=== PATIENT | male | born 1955 | race Caucasian/White ===

== ENCOUNTER 2024-07-20 15:05 | Emergency (ER) | payer MEDICARE, OTHER, SELFPAY ==
[2024-07-20 15:06] VITALS: BP 165/104; PULSE 92; RESP 18; TEMP 36.2; O2SAT 100; BMI 30.2
--- NOTE | 2024-07-20 16:01 | EKG12_ITS ---
Test Reason : BLOOD SUGAR Blood Pressure : */* mmHG Vent. Rate : 88 BPM Atrial Rate : 88 BPM P-R Int : 146 ms QRS Dur : 96 ms QT Int : 368 ms P-R-T Axes : 53 -28 9 degrees QTcB Int : 445 ms Normal sinus rhythm Nonspecific ST abnormality Abnormal ECG Confirmed by ANDRES MAK MD ([id number]), editor newspaper NIYA MCDOWELL ([id number]) on 07/22/2024 6:11:58 AM Referred By: Confirmed By: ANDRES MAK MD
[2024-07-20] MEDS: 0.9% Normal Saline (1000mL) 1,000 ML 999 ML IV (16:29)
[2024-07-20 16:43] LABS: Bacteria 0 SEEN /hpf (None Seen); Mucous, Urine 0 SEEN /hpf (<or=2+); Red Blood Cells-Urine 0 SEEN /hpf (0-5); Squamous Epithelial Cells - UA 0 SEEN /hpf (0-5)
[2024-07-20 16:44] LABS: Absolute Lymphocyte Count 1.49 X10^3/uL (0.83-4.51); Absolute Neutrophil Count 4.5 X10^3/uL (2.0-7.7); Basophil# 0.02 X10^3/uL; Basophil% 0.3 % (0-1); Eosinophil# 0.09 X10^3/uL; Eosinophils% 1.4 % (0-5); Hematocrit 46.1 % (40-54); Hemoglobin 16.7 g/dL (13.0-16.5); Lymphocyte # 1.49 X10^3/ul (0.83-4.51); Lymphocyte % 22.5 % (19-41); Mean Corp Hgb Conc 36.2 g/dL (32-36); Mean Corpuscular Hgb 30.8 pg (27.0-32.0); Mean Corpuscular Volume 84.9 fL (80-94); Mean Platelet Vol. 9.1 fl (6.2-12.0); Monocyte# 0.45 X10^3/uL; Monocyte% 6.8 % (0-10); NRBC Flagged by Analyzer 0 % (0-5); Neutrophil # 4.54 X10^3/uL (2.7-7.7); Neutrophil % 68.7 % (47-70); Platelet Count 207 K/mm3 (150-450); RBC Distribution Width CV 12.5 % (11.6-14.6); RBC Distribution Width SD 37.6 fl (35.1-43.9); Red Blood Count 5.43 M/mm3 (4.6-6.2); White Blood Count 6.6 K/mm3 (4.4-11.0)
[2024-07-20 16:49] LABS: Color, Urine Yellow (Yellow); Glucose, Dipstick 1000 mg/dl (Normal); Ketone-Dipstick 5 mg/dl (Negative); Leukocyte Esterase-Dipstick Negative /ul (Negative); Nitrite-Dipstick Negative (Negative); Occult Blood-Urine Negative /ul (Negative); Protein-Dipstick Negative (Negative); Urine Bilirubin Dipstick Negative (Negative); Urine Clarity Clear (Clear); Urine Urobilinogen Normal (Normal)
[2024-07-20 17:01] LABS: White Blood Cells 0-5 SEEN /hpf (0-5)
[2024-07-20 17:05] VITALS: BP 155/99; PULSE 80; RESP 19; O2SAT 96
--- NOTE | 2024-07-20 17:14 | CM.ED ---
Social work Reason for referral: no PCP Referral source: case find This SW identified patient's lack of PCP and need for resources. This SW entered patient's room, introducing self and role at [facility]. Patient accepted SW visit and gave permission to speak in front of patient's , Samia, who was bedside. Patient stated feeling fine, but presenting to the ED for high blood sugar. Patient's stated patient was at the eye doctor and was having blurry vision, so patient was encouraged to come to the ED for assessment. Patient stated he was just so sweet. Patient confirmed not having a PCP and patient having one years ago who retired. Patient stated not feeling a need to get another PCP at that point due to being healthy. Patient's stated she and patient had been for 42 years and this was patient's first time in the ED since they had been . Patient and patient's accepted resources of [facility] Provider Directory and Flavia Mcclendon information. Patient and patient's denied other needs at this time. Ivette Morales, SECURITY SME, ELEVATOR ERECTOR HELPER
[2024-07-20 17:23] LABS: Anion Gap 6 (5-15); BUN 17 mg/dL (7-18); BUN/Creat Ratio 15.2 RATIO (10-20); Calcium,Total 9.5 mg/dL (8.5-10.1); Chloride 102 mmol/L (98-107); Creatinine, Serum 1.12 mg/dL (0.70-1.30); EST Glomerular Filtration Rate 69 mL/min (>60); Est Glom Filt Rate - Afr Amer 84 mL/min (>60); Estimated Creatinine Clearance 74.43 ml/min; Glucose 474 mg/dL (74-106); Potassium 3.8 mmol/L (3.5-5.1); Sodium Level 137 mmol/L (136-145)
--- NOTE | 2024-07-20 17:30 | EDS_ITS ---
HPI History of Present Illness Chief Complaint: Hyperglycemia Detail of Chief Complaint: Blood sugar greater than 500 Informant: patient and spouse/S.O. Onset/Context/Timing Onset: - (Reading done at [employer] [employer] [facility], Dr. Weaver) Context: Gradual Onset Timing: Continuous Quality: Patient with symptoms of hyperglycemia for the past several weeks Location: Endocrine Current Severity: Moderate Maximum Severity: Moderate Worsened by: New onset diabetes Relieved by: Not applicable Associated Symptoms Associated Symptoms: Bilateral blurred vision, polyuria, polydipsia, nocturia Narrative Narrative: Patient is a 69-year-old male. He has no significant past medical history. He is on no medication. He went to the doctor's office because of several weeks of bilateral blurred vision. His ocular exam was unremarkable. Blood sugar was greater than 500. He denies fever, chills night sweats. He denies cardiac respiratory symptoms. He denies GI symptoms. He denies skin lesions. He denies paresthesia, anesthesia medics upper lower extremity. He denies pain in his feet. He denies orthostatic symptoms. Does endorse thirst and dry mouth. Prior similar symptoms: No Recent Illness/Hospitalization: No [facility] Medical History Cataract Home Medications ?Medication ?Instructions ?Recorded ?Last Taken ?Type NK 07/20/24 Unknown History metformin 500 mg tablet 500 mg PO BID #60 tabs 07/20/24 Unknown Rx Allergy/AdvReac Type Severity Reaction Status Date / Time No Known Allergies Allergy Verified 07/20/24 15:06 Social History (Updated 07/20/24 @ 17:[address] Gilbert Thompson MD) household members: spouse Smoking Status: Never smoker ROS ROS ED Constitutional Constitutional ED: Denies chills, fever(s), subjective or sweats Eyes Eyes: Reports blurry vision bilateral; Denies change in vision or diplopia ENT ENT ED: Denies ear pain, rhinorrhea or sore throat Cardiovascular Cardiovascular: Denies chest pain, orthopnea or palpitations Respiratory/Chest Respiratory/Chest: Denies cough, dyspnea, dyspnea on exertion or orthopnea Gastrointestinal Gastrointestinal: Denies abdominal pain, nausea or vomiting Genitourinary Genitourinary ED: Reports urinary frequency; Denies dysuria or hematuria Musculoskeletal Musculoskeletal: Denies arthralgias, back pain or myalgias Integumentary Denies rash Neurologic Neurologic: Denies headache(s) Endocrine Endocrinology: Reports polydipsia, polyphagia and polyuria; Denies cold intolerance Hematologic/Lymphatic Hematologic/Lymphatic: Reports systems reviewed and no addt'l complaints, except as documented EXAM Physical Exam Const Vital Signs: 07/20/24 15:06 07/20/24 15:44 07/20/24 17:05 Temperature 97.2 F L Temperature Source Temporal Pulse Rate 92 80 Respiratory Rate 18 19 H Respiratory Effort Normal Non-Labored Respiratory Pattern Normal Blood Pressure 165/104 H 155/99 H Blood Pressure Mean 124 117 Pulse Ox 100 96 Oxygen Delivery Method Room Air Room Air 07/20/24 18:00 07/20/24 19:00 Temperature Temperature Source Pulse Rate 87 79 Respiratory Rate 16 12 Respiratory Effort Respiratory Pattern Blood Pressure 177/108 H 147/102 H Blood Pressure Mean 126 115 Pulse Ox 96 94 Oxygen Delivery Method Positive well nourished and well developed Constitutional Narrative: Vital signs are mycophenolate blood pressure. Patient has not seen a doctor in years. General Appearance ED: well developed; Negative for pallor HEENT Reports dry mucous membranes HEENT Narrative: Head is atraumatic no cephalic. Ears normal. Nares patent. Posterior pharynx is normal. Mouth ED: Yes dry mucous membranes Mouth: dry mucous membranes Eyes PERRL and EOMs intact bilaterally General Eye ED: Negative for pale conjunctiva or scleral icterus Neck no lymphadenopathy, supple and no JVD Resp normal respiratory effort and clear to auscultation bilaterally Cardio regular rate, regular rhythm, S1 normal heart sound, S2 normal heart sound and no murmurs GI normal to inspection, nondistended, normoactive bowel sounds, non-tender, non-distended and no masses; Negative for hepatosplenomegaly Back/Spine no CVA tenderness Extremity normal to inspection General Extremety ED: Negative for edema or tenderness General Extremity: Negative for edema Neuro oriented x3 and CN's II-XII intact bilaterally Sensorium / Orientation: alert Psych mental status grossly normal Skin no rashes or lesions noted, no wounds and skin turgor normal General Skin Exam: elasticity normal; Negative for jaundice or pallor MDM MDM MDM Narrative Medical decision making narrative: Patient presents with symptoms consistent with new onset diabetes. Will obtain BMP to assess renal function as well as glucose anion gap. UA to assess for ketones, specific gravity and if any evidence of infection. CBC to assess H&H and differential. 1 L of normal saline was ordered. Suspect patient is not in DKA since he is not tachycardic or tachypneic. Furthermore there was no ketotic odor to his breath. History & Record Review Additional record(s) reviewed:: No prior records Lab Data Attestation: I reviewed the patient's lab results. Lab results narrative: CBC is unremarkable. Basic metabolic panel is remarkable for glucose of 474. CO2 anion gap are normal. Urinalysis is remarked for glucose and 5+ ketones. Labs: Laboratory Results - last 24 hr 07/20/24 07/20/24 16:17 16:26 WBC 6.6 RBC 5.43 Hgb 16.7 H Hct 46.1 MCV 84.9 MCH 30.8 MCHC 36.2 H RDW Std Deviation 37.6 RDW Coeff of Monik 12.5 Plt Count 207 MPV 9.1 Immature Gran % (Auto) 0.300 Neut % (Auto) 68.7 Lymph % (Auto) 22.5 [place] % (Auto) 6.8 Eos % (Auto) 1.4 Baso % (Auto) 0.3 Absolute Neuts (auto) 4.5 Absolute Lymphs (auto) 1.49 Nucleated RBC % 0 Sodium 137 Potassium 3.8 Chloride 102 Carbon Dioxide 29.0 Anion Gap 6 BUN 17 Creatinine 1.12 Estim Creat Clear Calc 74.43 Est GFR (MDRD) Af Amer 84 Est GFR (MDRD) Non-Af 69 BUN/Creatinine Ratio 15.2 Glucose 474 H* Calcium 9.5 Urine Color Yellow Urine Clarity Clear Urine pH 6.0 Ur Specific [place] 1.010 Urine Protein Negative Urine Glucose (UA) 1000 H Urine Ketones 5 H Urine Occult Blood Negative Urine Nitrite Negative Urine Bilirubin Negative Urine Urobilinogen Normal Ur Leukocyte Esterase Negative Urine RBC 0 SEEN Urine WBC 0-5 SEEN Ur Squamous Epith Cells 0 SEEN Urine Bacteria 0 SEEN Urine Mucus 0 SEEN POC Glucose 483 H* Treatment and Re-Evaluation :: Patient requested follow-up with Dr. Hogan. He was referred to Dr. Haddad. He was prescribed metformin. He was discharged to home. Discharge Plan Triage Chief Complaint: Hyperglycemia ED Provider: Gilbert Thompson Dx/Rx/DC Orders Clinical Impression: New onset type 2 diabetes mellitus, Diabetes mellitus with ketosis, Acute dehydration, Elevated blood-pressure reading without diagnosis of hypertension Instructions: ED Diabetes- Overview, ED Hypertension, To Be Confirmed, ED Hyperglycemia New Poss Diabetes Prescriptions: New metformin 500 mg tablet 500 mg PO BID Qty: 60 0RF No Action NK Primary Care Provider: Care Physician,No Primary Referrals: Belle Monk MD [Med Staff - Recovery Operator Helper] - 1 Week Care Physician,No Primary [Primary Care Provider] - Print Language: Bengali Disposition Disposition: Home, Self Care
[2024-07-20 18:00] VITALS: BP 177/108; PULSE 87; RESP 16; O2SAT 96
[2024-07-20 18:01] LABS: Bedside Glucose 483 mg/dL (74-106)
[2024-07-20 19:00] VITALS: BP 147/102; PULSE 79; RESP 12; O2SAT 94
[2024-07-20 19:58] VITALS: BP 147/102; PULSE 79; RESP 12; TEMP 36.6; O2SAT 94
--- NOTE | 2024-07-20 23:41 | EDS_ITS ---
HPI History of Present Illness Chief Complaint: Hyperglycemia [facility] Medical History Cataract Home Medications ?Medication ?Instructions ?Recorded ?Last Taken ?Type NK 07/20/24 Unknown History metformin 500 mg tablet 500 mg PO BID #60 tabs 07/20/24 Unknown Rx Allergy/AdvReac Type Severity Reaction Status Date / Time No Known Allergies Allergy Verified 07/20/24 15:06 Social History (Updated 07/20/24 @ 17:[address] Gilbert Thompson MD) household members: spouse Smoking Status: Never smoker ROS ROS ED Constitutional Constitutional ED: Denies chills, fever(s), subjective or sweats Eyes Eyes: Reports blurry vision bilateral (For the past couple of weeks.) and other; Denies change in vision or diplopia ENT ENT ED: Denies ear pain, rhinorrhea or sore throat Cardiovascular Cardiovascular: Denies chest pain, orthopnea, palpitations or racing heartbeat Respiratory/Chest Respiratory/Chest: Denies cough, dyspnea, dyspnea on exertion or orthopnea Gastrointestinal Gastrointestinal: Denies abdominal pain, nausea or vomiting Genitourinary Genitourinary ED: Denies dysuria, hematuria or urinary frequency Musculoskeletal Musculoskeletal: Denies arthralgias, back pain or myalgias Integumentary Denies rash Neurologic Neurologic: Denies headache(s) or paresthesias Psychiatric Psychiatric: Denies anxiety or depression Endocrine Endocrinology: Reports polydipsia, polyphagia and polyuria Hematologic/Lymphatic Hematologic/Lymphatic: Reports systems reviewed and no addt'l complaints, except as documented EXAM Physical Exam Const Vital Signs: 07/20/24 15:06 07/20/24 15:44 07/20/24 17:05 Temperature 97.2 F L Temperature Source Temporal Pulse Rate 92 80 Respiratory Rate 18 19 H Respiratory Effort Normal Non-Labored Respiratory Pattern Normal Blood Pressure 165/104 H 155/99 H Blood Pressure Mean 124 117 Pulse Ox 100 96 Oxygen Delivery Method Room Air Room Air 07/20/24 18:00 07/20/24 19:00 07/20/24 19:58 Temperature 97.9 F Temperature Source Pulse Rate 87 79 79 Respiratory Rate 16 12 12 Respiratory Effort Respiratory Pattern Blood Pressure 177/108 H 147/102 H 147/102 H Blood Pressure Mean 126 115 117 Pulse Ox 96 94 94 Oxygen Delivery Method MDM MDM MDM Narrative Medical decision making narrative: This is a duplicate chart. Please combine with medical record that was completed earlier. Lab Data Attestation: I reviewed the patient's lab results. Lab results narrative: Blood sugar is elevated at 474 with a normal CO2 anion gap. CBC is unremarkable. Labs: Laboratory Results - last 24 hr 07/20/24 07/20/24 07/20/24 16:17 16:17 16:17 WBC 6.6 RBC 5.43 Hgb 16.7 H Hct 46.1 MCV 84.9 MCH 30.8 MCHC 36.2 H RDW Std Deviation 37.6 RDW Coeff of Monik 12.5 Plt Count 207 MPV 9.1 Immature Gran % (Auto) 0.300 Neut % (Auto) 68.7 Lymph % (Auto) 22.5 [place] % (Auto) 6.8 Eos % (Auto) 1.4 Baso % (Auto) 0.3 Absolute Neuts (auto) 4.5 Absolute Lymphs (auto) 1.49 Nucleated RBC % 0 Sodium 137 Cancelled Potassium 3.8 Cancelled Chloride 102 Carbon Dioxide Anion Gap BUN Creatinine Estim Creat Clear Calc Est GFR (MDRD) Af Amer Est GFR (MDRD) Non-Af BUN/Creatinine Ratio Glucose Calcium Urine Color Urine Clarity Urine pH Ur Specific [place] Urine Protein Urine Glucose (UA) Urine Ketones Urine Occult Blood Urine Nitrite Urine Bilirubin Urine Urobilinogen Ur Leukocyte Esterase Urine RBC Urine WBC Ur Squamous Epith Cells Urine Bacteria Urine Mucus POC Glucose 07/20/24 07/20/24 07/20/24 16:17 16:17 16:17 WBC RBC Hgb Hct MCV MCH MCHC RDW Std Deviation RDW Coeff of Monik Plt Count MPV Immature Gran % (Auto) Neut % (Auto) Lymph % (Auto) [place] % (Auto) Eos % (Auto) Baso % (Auto) Absolute Neuts (auto) Absolute Lymphs (auto) Nucleated RBC % Sodium Potassium Chloride Cancelled Carbon Dioxide 29.0 Cancelled Anion Gap 6 Cancelled BUN 17 Creatinine Estim Creat Clear Calc Est GFR (MDRD) Af Amer Est GFR (MDRD) Non-Af BUN/Creatinine Ratio Glucose Calcium Urine Color Urine Clarity Urine pH Ur Specific [place] Urine Protein Urine Glucose (UA) Urine Ketones Urine Occult Blood Urine Nitrite Urine Bilirubin Urine Urobilinogen Ur Leukocyte Esterase Urine RBC Urine WBC Ur Squamous Epith Cells Urine Bacteria Urine Mucus POC Glucose 07/20/24 07/20/24 07/20/24 16:17 16:17 16:17 WBC RBC Hgb Hct MCV MCH MCHC RDW Std Deviation RDW Coeff of Monik Plt Count MPV Immature Gran % (Auto) Neut % (Auto) Lymph % (Auto) [place] % (Auto) Eos % (Auto) Baso % (Auto) Absolute Neuts (auto) Absolute Lymphs (auto) Nucleated RBC % Sodium Potassium Chloride Carbon Dioxide Anion Gap BUN Cancelled Creatinine 1.12 Cancelled Estim Creat Clear Calc 74.43 Cancelled Est GFR (MDRD) Af Amer 84 Est GFR (MDRD) Non-Af BUN/Creatinine Ratio Glucose Calcium Urine Color Urine Clarity Urine pH Ur Specific [place] Urine Protein Urine Glucose (UA) Urine Ketones Urine Occult Blood Urine Nitrite Urine Bilirubin Urine Urobilinogen Ur Leukocyte Esterase Urine RBC Urine WBC Ur Squamous Epith Cells Urine Bacteria Urine Mucus POC Glucose 07/20/24 07/20/24 07/20/24 16:17 16:17 16:17 WBC RBC Hgb Hct MCV MCH MCHC RDW Std Deviation RDW Coeff of Monik Plt Count MPV Immature Gran % (Auto) Neut % (Auto) Lymph % (Auto) [place] % (Auto) Eos % (Auto) Baso % (Auto) Absolute Neuts (auto) Absolute Lymphs (auto) Nucleated RBC % Sodium Potassium Chloride Carbon Dioxide Anion Gap BUN Creatinine Estim Creat Clear Calc Est GFR (MDRD) Af Amer Cancelled Est GFR (MDRD) Non-Af 69 Cancelled BUN/Creatinine Ratio 15.2 Cancelled Glucose 474 H* Calcium Urine Color Urine Clarity Urine pH Ur Specific [place] Urine Protein Urine Glucose (UA) Urine Ketones Urine Occult Blood Urine Nitrite Urine Bilirubin Urine Urobilinogen Ur Leukocyte Esterase Urine RBC Urine WBC Ur Squamous Epith Cells Urine Bacteria Urine Mucus POC Glucose 07/20/24 07/20/24 07/20/24 16:17 16:17 16:26 WBC RBC Hgb Hct MCV MCH MCHC RDW Std Deviation RDW Coeff of Monik Plt Count MPV Immature Gran % (Auto) Neut % (Auto) Lymph % (Auto) [place] % (Auto) Eos % (Auto) Baso % (Auto) Absolute Neuts (auto) Absolute Lymphs (auto) Nucleated RBC % Sodium Potassium Chloride Carbon Dioxide Anion Gap BUN Creatinine Estim Creat Clear Calc Est GFR (MDRD) Af Amer Est GFR (MDRD) Non-Af BUN/Creatinine Ratio Glucose Cancelled Calcium 9.5 Cancelled Urine Color Yellow Urine Clarity Clear Urine pH 6.0 Ur Specific [place] 1.010 Urine Protein Negative Urine Glucose (UA) 1000 H Urine Ketones 5 H Urine Occult Blood Negative Urine Nitrite Negative Urine Bilirubin Negative Urine Urobilinogen Normal Ur Leukocyte Esterase Negative Urine RBC 0 SEEN Urine WBC 0-5 SEEN Ur Squamous Epith Cells 0 SEEN Urine Bacteria 0 SEEN Urine Mucus 0 SEEN POC Glucose 483 H* EKG Initial EKG: Attestation: I personally reviewed and interpreted this EKG as follows: Interpretation: Sinus Rhythm Treatment and Re-Evaluation :: Patient received 1 L of normal saline. He was started on metformin. He requested to follow-up with Dr. Monk Discharge Plan Triage Chief Complaint: Hyperglycemia ED Provider: Gilbert Thompson Dx/Rx/DC Orders Clinical Impression: New onset type 2 diabetes mellitus, Diabetes mellitus with ketosis, Acute dehydration, Elevated blood-pressure reading without diagnosis of hypertension Instructions: ED Diabetes- Overview, ED Hypertension, To Be Confirmed, ED Hyperglycemia New Poss Diabetes Prescriptions: New metformin 500 mg tablet 500 mg PO BID Qty: 60 0RF No Action NK Primary Care Provider: Care Physician,No Primary Referrals: Belle Monk MD [Med Staff - Dock Loader] - 1 Week Care Physician,No Primary [Primary Care Provider] - Print Language: Khmer Disposition Disposition: Home, Self Care Discharge Date/Time: 07/20/24 20:02
== END 2024-07-20 20:02 | disposition home or self-care (01) ==
PROVIDERS: Emergency Provider Emergency Medicine; Visit Provider Emergency Medicine
DX: E11.65 Type 2 diabetes mellitus with hyperglycemia (principal); E88.89 Other specified metabolic disorders; E86.0 Dehydration; R03.0 Elevated blood-pressure reading, without diagnosis of hypertension
CPT/HCPCS: 80048; 81001; 82962; 85025; 93005; 96360; 99284

== ENCOUNTER → 2024-10-22 | Outpatient (CLI) | payer MEDICARE, OTHER, SELFPAY ==
[2024-10-22 11:21] LABS: ALB/GLOB Ratio 1.6 RATIO (0.9-2.4); AST(SGOT) 22 U/L (<=37); Alanine Aminotransfer ALT/SGPT 32 U/L (<=46); Albumin, Serum 4.5 g/dL (3.4-4.8); Alkaline Phosphatase 94 U/L (40-129); Anion Gap 11 (5-15); BUN 24 mg/dL (4-19); BUN/Creat Ratio 27.6 RATIO (10-20); Calcium,Total 9.3 mg/dL (7.6-11.0); Carbon Dioxide 25.9 mmol/L (21.0-32.0); Chloride 103 mmol/L (98-108); Cholesterol 94 mg/dL (<=200); Creatinine, Serum 0.87 mg/dL (0.70-1.20); EST Glomerular Filtration Rate 93 (>60); Globulin 2.7 g/dL (2.2-4.2); Glucose 149 mg/dL (70-99); High Density Lipoprotein 40 mg/dL; Low Density Lipoprotein Calc. 46 mg/dL; Potassium 4.1 mmol/L (3.3-5.1); Protein, Total 7.2 g/dL (5.9-8.4); Sodium Level 140 mmol/L (133-145); Total Bilirubin 0.88 mg/dL (0.00-1.30); Triglycerides 42 mg/dL; Very Low Density Lipoprotein 8 mg/dL (5-40); cholesterol:hdl ratio screen 2.35
[2024-10-22 11:27] LABS: Hemoglobin A1c 6.9 % (<=5.6)
[2024-10-22 12:03] LABS: Microalbumin,Random Urine < 12.0 mg/L (NO RANGE EST.); Microalbumin:Creatinine Ratio UNABLE TO CALCULATE mg/g CRE
== END | disposition home or self-care (01) ==
PROVIDERS: PCP Family Medicine; Referring Provider Family Medicine; Visit Provider Family Medicine
DX: E11.9 Type 2 diabetes mellitus without complications (principal)
CPT/HCPCS: 36415; 80053; 80061; 82043; 82570; 83036

== ENCOUNTER → 2025-01-04 | Outpatient (CLI) | payer MEDICARE, OTHER, SELFPAY ==
[2025-01-04 18:05] LABS: Absolute Lymphocyte Count 0.87 X10^3/uL (0.83-4.51); Absolute Neutrophil Count 3.5 X10^3/uL (2.0-7.7); Basophil# 0.01 X10^3/uL; Basophil% 0.2 % (0-1); Eosinophil# 0.05 X10^3/uL; Eosinophils% 1.1 % (0-5); Hematocrit 42.5 % (40-54); Hemoglobin 14.5 g/dL (13.0-16.5); Lymphocyte # 0.87 X10^3/ul (0.83-4.51); Lymphocyte % 18.3 % (19-41); Mean Corp Hgb Conc 34.1 g/dL (32-36); Mean Corpuscular Hgb 29.2 pg (27.0-32.0); Mean Corpuscular Volume 85.7 fL (80-94); Mean Platelet Vol. 9.8 fl (6.2-12.0); Monocyte# 0.31 X10^3/uL; Monocyte% 6.5 % (0-10); NRBC Flagged by Analyzer 0 % (0-5); Neutrophil # 3.51 X10^3/uL (2.7-7.7); Neutrophil % 73.7 % (47-70); Platelet Count 251 K/mm3 (150-450); RBC Distribution Width CV 13.6 % (11.6-14.6); RBC Distribution Width SD 42.6 fl (35.1-43.9); Red Blood Count 4.96 M/mm3 (4.6-6.2); White Blood Count 4.8 K/mm3 (4.4-11.0)
[2025-01-04 18:31] LABS: AST(SGOT) 59 U/L (<=37); Alanine Aminotransfer ALT/SGPT 202 U/L (<=46); Albumin, Serum 4.2 g/dL (3.4-4.8); Alkaline Phosphatase 270 U/L (40-129); Bilirubin, Direct 4.87 mg/dL (0.00-0.30); Globulin 2.9 g/dL (2.2-4.2); Protein, Total 7.1 g/dL (5.9-8.4); Total Bilirubin 6.87 mg/dL (0.00-1.30)
[2025-01-05 09:52] LABS: Lipase 35 U/L (13-75)
== END | disposition home or self-care (01) ==
LOC: BFHLAB 14:26
PROVIDERS: PCP Family Medicine; Visit Provider Family Medicine
DX: R10.11 Right upper quadrant pain (principal); R74.8 Abnormal levels of other serum enzymes
CPT/HCPCS: 36415; 80076; 83690; 85025

== ENCOUNTER → 2025-01-05 | Outpatient (CLI) | payer MEDICARE, OTHER, SELFPAY ==
--- NOTE | 2025-01-05 10:01 | US_ITS ---
PROCEDURE: ABDOMEN LIMITED 01/05/2025 REASON FOR EXAM: RUQ PAIN VOMITING COMPARISON: None FINDINGS: Liver: Diffusely echogenic suggesting fatty infiltration. Hepatomegaly. The liver measures 22.1 cm. Gallbladder: Gallbladder is distended. Small amount of pericholecystic fluid. Positive sonographic Jones's sign. Gallbladder wall is not thickened. No evidence of gallstones. Common bile duct: Dilated measuring up to 13 mm. . Pancreas: Visualized portions are sonographically unremarkable. Other: Visualized portions of the right kidney are unremarkable. No right upper quadrant ascites. US/Abdomen Limited IMPRESSION: Hepatomegaly and diffuse fatty infiltration of the liver. Distended gallbladder with positive Jones's sign and small amount of perichole cystic fluid. Acalculous cholecystitis should be ruled out. Dilated common bile duct. Reading Location: [place] [id number]
== END | disposition home or self-care (01) ==
LOC: US 10:00
PROVIDERS: PCP Family Medicine; Referring Provider Family Medicine; Visit Provider Family Medicine
DX: R10.11 Right upper quadrant pain (principal); R11.10 Vomiting, unspecified
CPT/HCPCS: 76705

== ENCOUNTER 2025-01-12 09:12 | Inpatient (IN) | payer MEDICARE, OTHER, SELFPAY ==
[2025-01-12 09:12] VITALS: BP 143/84; PULSE 82; RESP 18; TEMP 36.7; O2SAT 100; BMI 25.7
--- NOTE | 2025-01-12 09:27 | EDS_ITS ---
HPI HPI - GI History of Present Illness Chief Complaint: Abd Pain Narrative Narrative: 69-year-old male past medical history of diabetes recently switched to Januvia from metformin presents with 2-1/2 weeks of jaundice and right upper quadrant pain. He is nauseated but has not vomited. No fevers or chills. He states his symptoms began approximately 2-1/2 weeks ago. Last week he went to his primary care provider and had an ultrasound performed. He went to Dr. Stauffer the surgeon today for referral for gallbladder surgery. In discussion with Dr. Stauffer, he was sent in for CT imaging and repeat laboratory work. Patient did have reportedly an ultrasound which showed no stones in the gallbladder but it was distended as well as some of the bile ducts. Patient reports continued nausea and decreased appetite as well as quintin colored stools and jaundice. PFSH [facility] Medical History Umbilical hernia Gallbladder problem Nausea RUQ pain Cataract Home Medications ?Medication ?Instructions ?Recorded ?Last Taken ?Type sitagliptin phosphate 25 mg tablet 25 mg PO QHS 01/11/25 History (Januvia) Allergy/AdvReac Type Severity Reaction Status Date / Time No Known Allergies Allergy Verified 01/12/25 08:55 Surgical History H/O right inguinal hernia repair History of appendectomy Social History household members: spouse Smoking Status: Never smoker ROS ROS ED ROS Narrative Review of systems positive for scleral icterus, jaundice, right upper quad pain with nausea but no vomiting. No fevers or chills. Positive quintin colored stools. Decreased appetite. Denies other symptoms. No exacerbating or alleviating factors. EXAM Physical Exam Narrative Exam Narrative: Afebrile. Vital signs noted. Nontoxic-appearing. Cardiovascular examination reveals a regular rate and rhythm. Lungs are clear to auscultation bilaterally. Abdomen is soft with tenderness to palpation right upper quadrant. HEENT examination does show scleral icterus. Neck soft and supple without stridor or meningismus. Skin examination does show jaundice. Neurological examination nonfocal, nonlateralizing. No clonus. Const Vital Signs: 01/12/25 09:12 01/12/25 11:12 01/12/25 12:10 Temperature 98.1 F Temperature Source Temporal Pulse Rate 82 72 78 Respiratory Rate 18 14 14 Blood Pressure 143/84 H 150/79 H 148/96 H Blood Pressure Mean 103 102 113 Pulse Ox 100 100 100 Oxygen Delivery Method Room Air Room Air Room Air MDM MDM MDM Narrative Medical decision making narrative: Concern is for biliary obstruction versus pancreatitis versus gallstone pancreatitis versus liver mass. I reviewed his outpatient laboratory work and prior labs, and he did have elevated bilirubin of 6. Today's laboratory work was reviewed and he is slightly neutropenic at 4.0 with hemoglobin normal at 13.9, platelet count 239. Chloride slightly low at 97 with normal sodium of 133, BUN of 22 and creatinine 0.81. Glucose elevated at 374 consistent with his diabetes but anion gap normal at 13 so I doubt diabetic ketoacidosis. He has elevated LFTs with an AST of 51 and ALT of 112, alk phos 292, total bili 12.5. Lipase 28. Urinalysis negative for infection with 0 WBCs but he does have elevated bilirubin as well. I reviewed the radiology report of the CT of the abdomen pelvis. Abdomen/Pelvis CT 01/12/25 10:24 IMPRESSION: There is a hypervascular lesion in the superior aspect of the right hepatic lobe measuring 0.8 cm, axial image 7/136. There is a circumscribed low-density lesion in the left hepatic lobe measuring 1.6 cm, image 29/136, Hounsfield units = 41. Further evaluation is indicated which could include three-phase contrast CT or MRI examination. There is moderate intrahepatic biliary dilation. A retrograde study is indicated. The proximal common bile duct is dilated to 2.5 cm. The distal common bile duct measures 0.7 cm at the pancreatic head. Pancreatic duct is dilated and measures 0.6 cm in the proximal body, 0.5 cm in the distal body, and 0.5 cm in the tail. The gallbladder is distended to 11 cm in length. Consider hepatobiliary scan for further characterization. The spleen is enlarged at 15 cm in length. There is a 2.6 cm cyst in the midpole of the left kidney. There is a 1.1 cm stone in the right bladder base. There is a 2.5 cm uncomplicated fat containing umbilical hernia. Will discuss patient with Dr. Stauffer, and Dr. Webber, then with the hospitalist for admission for further testing of his biliary obstruction. Of note, the patient did inform me that his mother and his sister both have history of Gilbert's disease. I discussed the patient with Dr. Stauffer who was initially suggesting transfer, but in his discussion with Dr. Webber, he states that patient does require further workup but he would like the hospitalist to admit him. I discussed patient with Dr. Matilde Henry for admission to the general medical floor. Patient is in stable condition. History & Record Review Discussion w/independent historian: Patient Additional record(s) reviewed:: Prior labs Lab Data Attestation: I reviewed the patient's lab results. Labs: Laboratory Results - last 24 hr 01/12/25 01/12/25 09:45 10:10 WBC 4.0 L RBC 4.70 Hgb 13.9 Hct 40.2 MCV 85.5 MCH 29.6 MCHC 34.6 RDW Std Deviation 43.8 RDW Coeff of Monik 13.9 Plt Count 239 MPV 10.1 Immature Gran % (Auto) 0.500 Neut % (Auto) 72.7 H Lymph % (Auto) 15.7 L [place] % (Auto) 9.7 Eos % (Auto) 1.2 Baso % (Auto) 0.2 Absolute Neuts (auto) 2.9 Absolute Lymphs (auto) 0.63 L Nucleated RBC % 0 Sodium 133 Potassium 4.0 Chloride 97 L Carbon Dioxide 23.0 Anion Gap 13 BUN 22 H Creatinine 0.81 Estim Creat Clear Calc 91.67 Est GFR (MDRD) Non-Af 96 BUN/Creatinine Ratio 27.8 H Glucose 374 H Calcium 9.2 Total Bilirubin 12.50 H AST 51 H ALT 112 H Alkaline Phosphatase 292 H Total Protein 6.8 Albumin 3.9 Globulin 2.9 Albumin/Globulin Ratio 1.3 Lipase 28 Urine Color Berna Urine Clarity Clear Urine pH 6.0 Ur Specific [place] 1.015 Urine Protein 30 H Urine Glucose (UA) 1000 H Urine Ketones 5 H Urine Occult Blood 250 H Urine Nitrite Negative Urine Bilirubin 3 H Urine Urobilinogen 4 H Ur Leukocyte Esterase 25 H Urine RBC 5-10 SEEN Urine WBC 0 SEEN Ur Squamous Epith Cells 0-5 SEEN Urine Bacteria 2+ Urine Mucus RARE Radiography Diagnostic Testing: Clinical Impression(s) from Imaging Studies Abdomen/Pelvis CT 01/12/25 10:24 IMPRESSION: There is a hypervascular lesion in the superior aspect of the right hepatic lobe measuring 0.8 cm, axial image 7/136. There is a circumscribed low-density lesion in the left hepatic lobe measuring 1.6 cm, image 29/136, Hounsfield units = 41. Further evaluation is indicated which could include three-phase contrast CT or MRI examination. There is moderate intrahepatic biliary dilation. A retrograde study is roberto carlos cated. The proximal common bile duct is dilated to 2.5 cm. The distal common bile duct measures 0.7 cm at the pancreatic head. Pancreatic duct is dilated and measures 0.6 cm in the proximal body, 0.5 cm in the distal body, and 0.5 cm in the tail. The gallbladder is distended to 11 cm in length. Consider hepatobiliary scan for further characterization. The spleen is enlarged at 15 cm in length. There is a 2.6 cm cyst in the midpole of the left kidney. There is a 1.1 cm stone in the right bladder base. There is a 2.5 cm uncomplicated fat containing umbilical hernia. Reading Location: [facility] Management Discussion w/another healthcare provider: Hospitalist and [place] [facility] Discharge Plan Dx/Rx/DC Orders Clinical Impression: Jaundice, RUQ pain, Dilated bile duct, Dilated pancreatic duct Disposition Disposition: Acute Care [facility]
[2025-01-12 09:55] LABS: Absolute Lymphocyte Count 0.63 X10^3/uL (0.83-4.51); Absolute Neutrophil Count 2.9 X10^3/uL (2.0-7.7); Basophil# 0.01 X10^3/uL; Basophil% 0.2 % (0-1); Eosinophil# 0.05 X10^3/uL; Eosinophils% 1.2 % (0-5); Hematocrit 40.2 % (40-54); Hemoglobin 13.9 g/dL (13.0-16.5); Lymphocyte # 0.63 X10^3/ul (0.83-4.51); Lymphocyte % 15.7 % (19-41); Mean Corp Hgb Conc 34.6 g/dL (32-36); Mean Corpuscular Hgb 29.6 pg (27.0-32.0); Mean Corpuscular Volume 85.5 fL (80-94); Mean Platelet Vol. 10.1 fl (6.2-12.0); Monocyte# 0.39 X10^3/uL; Monocyte% 9.7 % (0-10); NRBC Flagged by Analyzer 0 % (0-5); Neutrophil # 2.92 X10^3/uL (2.7-7.7); Neutrophil % 72.7 % (47-70); Platelet Count 239 K/mm3 (150-450); RBC Distribution Width CV 13.9 % (11.6-14.6); RBC Distribution Width SD 43.8 fl (35.1-43.9)
[2025-01-12 10:16] LABS: White Blood Cells 0 SEEN /hpf (0-5)
[2025-01-12] MEDS: 0.9% Normal Saline (1000mL) 1,000 ML 999 ML IV (10:17)
[2025-01-12 10:18] LABS: ALB/GLOB Ratio 1.3 RATIO (0.9-2.4); AST(SGOT) 51 U/L (<=37); Alanine Aminotransfer ALT/SGPT 112 U/L (<=46); Albumin, Serum 3.9 g/dL (3.4-4.8); Alkaline Phosphatase 292 U/L (40-129); Anion Gap 13 (5-15); BUN 22 mg/dL (4-19); BUN/Creat Ratio 27.8 RATIO (10-20); Calcium,Total 9.2 mg/dL (7.6-11.0); Chloride 97 mmol/L (98-108); Creatinine, Serum 0.81 mg/dL (0.70-1.20); EST Glomerular Filtration Rate 96 (>60); Estimated Creatinine Clearance 91.67 ml/min (50-250); Globulin 2.9 g/dL (2.2-4.2); Glucose 374 mg/dL (70-99); Lipase 28 U/L (13-75); Protein, Total 6.8 g/dL (5.9-8.4); Sodium Level 133 mmol/L (133-145)
[2025-01-12 10:21] LABS: Color, Urine Amber (Yellow); Glucose, Dipstick 1000 mg/dl (Normal); Ketone-Dipstick 5 mg/dl (Negative); Leukocyte Esterase-Dipstick 25 /ul (Negative); Nitrite-Dipstick Negative (Negative); Occult Blood-Urine 250 /ul (Negative); Protein-Dipstick 30 mg/dl (Negative); Specific Gravity, Urine 1.015 (1.002-1.030); Urine Clarity Clear (Clear); Urine Urobilinogen 4 mg/dl (Normal)
[2025-01-12 10:22] LABS: Urine Bilirubin Dipstick 3 mg/dL (Negative)
--- NOTE | 2025-01-12 10:24 | CT_ITS ---
PROCEDURE: ABDOMEN/PELVIS W IV CONT ONLY 01/12/2025 REASON FOR EXAM: JAUNDICE, RIGHT UPPER QUADRANT ABDOMINAL PAIN TECHNIQUE: ABDOMEN/PELVIS W IV CONT ONLY Coronal and Sagittal reconstruction series were provided. CONTRAST: 99 cc [id number] One or more dose reduction techniques were used (e.g., Automated exposure control, adjustment of the mA and/or kV according to patient size, use of iterative reconstruction technique. RADIATION DOSE SUMMARY: DLP: 795.28 mGycm COMPARISON: January 05, 2025 ultrasound FINDINGS: Lung bases: Clear Liver: There is a hypervascular lesion in the superior aspect of the right hepatic lobe measuring 0.8 cm, axial image 7/136. There is a circumscribed low-density lesion in the left hepatic lobe measuring 1.6 cm, image 29/136, Hounsfield units = 41. There is moderate intrahepatic biliary dilation. The proximal common bile duct is dilated to 2.5 cm. The distal common bile duct measures 0.7 cm at the pancreatic head. Pancreatic duct is dilated and measures 0.6 cm in the proximal body, 0.5 cm in the distal body, and 0.5 cm in the tail. Gallbladder: The gallbladder is distended to 11 cm in length. There is no visible gallbladder wall thickening or stone. There is no visible pericholecystic inflammation or fluid. Spleen: The spleen is enlarged at 15 cm in length. Pancreas: There is no focal pancreatic mass or cyst. There is no peripancreatic inflammation. Adrenals: Unremarkable Kidneys: There is a 2.6 cm cyst in the midpole of the left kidney. Bladder: There is a 1.1 cm stone in the right bladder base. Reproductive Organs: Prostate is heterogeneously enlarged with calcifications noted. Bowel: There is a moderate stool load. There are diverticuli in the sigmoid colon with no visible acute diverticulitis. The small bowel loops are not distended. Appendix: Not demonstrated Lymph nodes: There is no pathologic adenopathy by size criteria. Vasculature: Atherosclerotic calcifications are noted. Peritoneum / Retroperitoneum: There is a 2.5 cm uncomplicated fat containing umbilical hernia. Bones: Is no acute bony abnormality. CT/Abdomen/Pelvis W IV Cont ONLY IMPRESSION: There is a hypervascular lesion in the superior aspect of the right hepatic lob e measuring 0.8 cm, axial image 7/136. There is a circumscribed low-density lesion in the left hepatic lobe measuring 1.6 cm, trudi ge 29/136, Hounsfield units = 41. Further evaluation is indicated which could include three-phase contrast CT or MRI exam ination. There is moderate intrahepatic biliary dilation. A retrograde study is indicat ed. The proximal common bile duct is dilated to 2.5 cm. The distal common bile mirna t measures 0.7 cm at the pancreatic head. Pancreatic duct is dilated and measures 0.6 cm in the proximal body, 0.5 cm in the distal body, and 0.5 cm in the tail. The gallbladder is distended to 11 cm in length. Consider hepatobiliary scan for f urther characterization. The spleen is enlarged at 15 cm in length. There is a 2.6 cm cyst in the midpole of the left kidney. There is a 1.1 cm stone in the right bladder base. There is a 2.5 cm uncomplicated fat containing umbilical hernia. Reading Location: [facility]
[2025-01-12 10:32] LABS: Bacteria 2+ /hpf (None Seen); Red Blood Cells-Urine 5-10 SEEN /hpf (0-5); Squamous Epithelial Cells - UA 0-5 SEEN /hpf (0-5)
[2025-01-12 10:33] LABS: Mucous, Urine RARE /hpf (<or=2+)
[2025-01-12 11:12] VITALS: BP 150/79; PULSE 72; RESP 14; O2SAT 100
[2025-01-12 12:10] VITALS: BP 148/96; PULSE 78; RESP 14; O2SAT 100
--- NOTE | 2025-01-12 13:36 | PCM.HP.STD ---
HPI - General General Date of Admission: 01/12/25 Date of Service: 01/12/25 Chief Complaint: RUQ pain, jaundice HPI Narrative ERICK TYSON, is a 69-year-old male with history of diabetes recently switched from Januvia to metformin who presented to [facility] ED 01/12/2025 with 2-1/2 weeks of jaundice and right upper quadrant pain. He has been worked up on an outpatient basis by his PCP and was found to have a bilirubin of 6 and a distended gallbladder on right upper quadrant ultrasound. He saw Dr. Stauffer with general surgery today and was still jaundiced so he sent him to the ED for a CT scan and repeat labs. Labs in the ED demonstrated total bili of 12.5, AST of 51, ALT of 112, alk phos 292. Patient afebrile, heart rate 82, blood pressure 143/84 respiratory rate 18 with pulse ox 100% on room air. Glucose 374. UA with glucose and bilirubin present. CT of the abdomen in the ED demonstrated hypervascular lesion superior aspect of right hepatic lobe and circumscribed low-density lesion in the left hepatic lobe. Moderate intrahepatic biliary dilation with common bile duct dilation of 2.5 cm and pancreatic duct dilated at 0.6 cm. Gallbladder distended to 11 cm and spleen is enlarged. General surgery with no intervention planned but GI contacted who recommended hospitalist admission and he will see in consult for further workup and management. Hospitalist contacted for admission. Patient evaluated at bedside and reports history as above with a dull right upper quadrant ache over the past couple of weeks and yellowing of his skin, his urine has been dark and his stool is been light-colored but no diarrhea or constipation. Reports poor appetite and occasional nausea. No fevers or chills, no other new or acute complaints. [facility] Medical History (Updated 01/12/25 @ 13:[address] Matilde Henry MD) Cataract Diabetes mellitus, type 2 Gallbladder problem Nausea RUQ pain Umbilical hernia Home Medications ?Medication ?Instructions ?Recorded ?Last Taken ?Type sitagliptin phosphate 25 mg tablet 25 mg PO QHS 01/12/25 01/11/25 History (Januvia) Allergy/AdvReac Type Severity Reaction Status Date / Time No Known Allergies Allergy Verified 01/12/25 08:55 Surgical History H/O right inguinal hernia repair History of appendectomy Social History household members: spouse Smoking Status: Never smoker ROS ROS Narrative General: Denies fever/chills HENT: Denies headache, denies stuffy nose, denies sore throat EYES: Denies changes in vision Resp: Denies cough, denies shortness of breath Cardiac: Denies chest pain GI: Right upper quadrant pain, occasional nausea, poor appetite, pale stool : Denies changes in urination Extremity: Denies swelling MSK: Denies weakness Neuro: Denies any numbness/tingling Heme: Denies any bleeding or bruising Skin: Denies rashes, does have yellowing of his skin Psychiatric: No complaints voiced Vital Signs Vital Signs Vital Signs: 01/12/25 09:12 01/12/25 11:12 01/12/25 12:10 Temperature 98.1 F Temperature Source Temporal Pulse Rate 82 72 78 Respiratory Rate 18 14 14 Blood Pressure 143/84 H 150/79 H 148/96 H Blood Pressure Mean 103 102 113 Pulse Ox 100 100 100 Oxygen Delivery Method Room Air Room Air Room Air Weight Weight: 83.506 kg Body Mass Index (BMI) 25.7 Physical Exam Narrative General: Alert, oriented, no apparent distress HEENT: Atraumatic, normocephalic Eyes: Scleral icterus, normal conjunctiva, extraocular movements grossly intact Neck: Supple Respiratory: Clear to auscultation bilaterally, normal respiratory effort Cardiovascular: Regular rate and rhythm GI: Pain in right upper quadrant without rigidity or significant guarding Extremities: No edema Musculoskeletal: Moving all extremities Neuro: No overt focal neurological deficits Skin: Does appear jaundice Psych: Cooperative Results Lab / Micro Data 01/12/25 09:45 01/12/25 09:45 Labs: Laboratory Results - last 24 hr 01/12/25 09:45: WBC 4.0 L, RBC 4.70, Hgb 13.9, Hct 40.2, MCV 85.5, MCH 29.6, MCHC 34.6, RDW Std Deviation 43.8, RDW Coeff of Monik 13.9, Plt Count 239, MPV 10.1, Immature Gran % (Auto) 0.500, Neut % (Auto) 72.7 H, Lymph % (Auto) 15.7 L, [place] % (Auto) 9.7, Eos % (Auto) 1.2, Baso % (Auto) 0.2, Absolute Neuts (auto) 2.9, Absolute Lymphs (auto) 0.63 L, Nucleated RBC % 0, Sodium 133, Potassium 4.0, Chloride 97 L, Carbon Dioxide 23.0, Anion Gap 13, BUN 22 H, Creatinine 0.81, Estim Creat Clear Calc 91.67, Est GFR (MDRD) Non-Af 96, BUN/Creatinine Ratio 27.8 H, Glucose 374 H, Calcium 9.2, Total Bilirubin 12.50 H, AST 51 H, ALT 112 H, Alkaline Phosphatase 292 H, Total Protein 6.8, Albumin 3.9, Globulin 2.9, Albumin/Globulin Ratio 1.3, Lipase 28 01/12/25 10:10: Urine Color Berna, Urine Clarity Clear, Urine pH 6.0, Ur Specific [place] 1.015, Urine Protein 30 H, Urine Glucose (UA) 1000 H, Urine Ketones 5 H, Urine Occult Blood 250 H, Urine Nitrite Negative, Urine Bilirubin 3 H, Urine Urobilinogen 4 H, Ur Leukocyte Esterase 25 H, Urine RBC 5-10 SEEN, Urine WBC 0 SEEN, Ur Squamous Epith Cells 0-5 SEEN, Urine Bacteria 2+, Urine Mucus RARE Imaging Radiology Impression Abdomen/Pelvis CT 01/12/25 10:24 IMPRESSION: There is a hypervascular lesion in the superior aspect of the right hepatic lobe measuring 0.8 cm, axial image 7/136. There is a circumscribed low-density lesion in the left hepatic lobe measuring 1.6 cm, image 29/136, Hounsfield units = 41. Further evaluation is indicated which could include three-phase contrast CT or MRI examination. There is moderate intrahepatic biliary dilation. A retrograde study is indicated. The proximal common bile duct is dilated to 2.5 cm. The distal common bile duct measures 0.7 cm at the pancreatic head. Pancreatic duct is dilated and measures 0.6 cm in the proximal body, 0.5 cm in the distal body, and 0.5 cm in the tail. The gallbladder is distended to 11 cm in length. Consider hepatobiliary scan for further characterization. The spleen is enlarged at 15 cm in length. There is a 2.6 cm cyst in the midpole of the left kidney. There is a 1.1 cm stone in the right bladder base. There is a 2.5 cm uncomplicated fat containing umbilical hernia. [facility] Assessment & Plan Assessment/Plan (1) Jaundice: (2) Dilated bile duct: (3) Dilated pancreatic duct: (4) RUQ pain: (5) Diabetes mellitus, type 2: PLAN: Plan # Jaundice and right upper quadrant pain -CT of the abdomen in the ED demonstrated hypervascular lesion superior aspect of right hepatic lobe and circumscribed low-density lesion in the left hepatic lobe. Moderate intrahepatic biliary dilation with common bile duct dilation of 2.5 cm and pancreatic duct dilated at 0.6 cm. Gallbladder distended to 11 cm and spleen is enlarged - total bili of 12.5, AST of 51, ALT of 112, alk phos 292 - General Surgery with no intervention planned but recommended GI involvement - Reportedly GI contacted while patient in ED and recommended hospitalist admission and he will see in consult for further workup and management -Will keep n.p.o. for now while GI determining further workup - GI consult - Avoid hepatotoxic agents - Daily CMP #Type 2 diabetes mellitus -Glucose checks and sliding scale insulin -Hold home oral hypoglycemics #DVT ppx: SCDs in the event patient needs intervention Matilde Henry MD Charges/Coding Visit Charges Inpatient E&M: 43016 Init Hosp L1
[2025-01-12 14:08] VITALS: BP 155/88; PULSE 76; RESP 20; TEMP 36.1; O2SAT 99
[2025-01-12 15:00] VITALS: BMI 25.7
[2025-01-12 15:10] VITALS: BP 148/75; PULSE 69; RESP 16; TEMP 36.4; O2SAT 99
[2025-01-12] MEDS: 0.9% Normal Saline (1000mL) 1,000 ML 100 ML IV (15:42)
[2025-01-12] MEDS: Insulin Lispro 100 UNIT/ML INSULN.PEN SC ×2 (16:38→21:24)
[2025-01-12 16:49] LABS: Bedside Glucose 237 mg/dL (74-106)
--- NOTE | 2025-01-12 18:19 | MRI_ITS ---
PROCEDURE: MRCP ABDOMEN WITHOUT CONTRAST 01/12/2025 REASON FOR EXAM: JAUNDICE AND WEIGHT LOSS TECHNIQUE: MRCP ABDOMEN WITHOUT CONTRAST Multiplanar and multisequence images were obtained. CONTRAST: None COMPARISON: CT scan of the abdomen pelvis dated 01/12/2025. FINDINGS: The visualized lung bases are unremarkable. The liver is normal in size and signal intensity. There is extensive intrahepatic and extrahepatic biliary ductal dilatation with sudden cut off of the common bile duct at its mid aspect at the level of an isointense filling defect measuring 8 mm x 20 mm in coronal dimension. There is associated severe pancreatic duct dilatation as well as dilatation of the gallbladder. The pancreatic parenchyma is otherwise unremarkable. Normal unenhanced spleen. Normal pancreas. Normal bilateral adrenal glands. Normal size of the right kidney. There is no right renal mass. There are no right renal calculi. There is no right hydronephrosis. Normal visualized right ureter. Normal size of the left kidney. There is no left renal mass. 1.9 x 3.0 cm cyst is seen in the lower pole of the left kidney. There are no left renal calculi. There is no left hydronephrosis. Normal visualized left ureter. Normal visualized stomach. Normal visualized small intestine. Normal visualized colon. There is no demonstrated peritoneal fluid. Normal abdominal aorta. Normal inferior vena cava. Normal retroperitoneum. Normal abdominal wall. Normal osseous structures. MRI/MRCP Abdomen without Contrast IMPRESSION: Findings consistent with an isointense filling defect in the mid aspect of the common bile duct suspicious for a soft tissue mass, unlikely common bile duct stone. Associated intrahepatic and extrahepatic blade ductal dilatation as well as dil atation of the gallbladder and pancreatic duct. Left renal cyst. Reading Location: [id number]
--- NOTE | 2025-01-12 18:21 | CON.PCM.GI_ITS ---
HPI Consult Data Date of Consult: 01/12/25 HPI Narrative Reason for Consultation: Jaundice right upper quadrant discomfort HPI Narrative: ERICK TYSON, is a 69 M who presents from the clinic after seeing surgery for right lower quadrant pain and possible need for cholecystectomy. Patient has a new diagnosis of diabetes beginning of the year. He has lost approximately 40 pounds since the beginning of the year. Initially, he had started cutting back on his sugars along with administration of metformin and Januvia he was able to control his blood sugars. He does not notice recent hemoglobin A1c. His PCP recently stopped his metformin due to bloating and uncomfortableness in his right upper quadrant. 01/05/2025 US/Abdomen Limited IMPRESSION: Hepatomegaly and diffuse fatty infiltration of the liver. Distended gallbladder with positive Jones's sign and small amount of pericholecystic fluid. Acalculous cholecystitis should be ruled out. Dilated common bile duct. 01/12/2025 : CT scan abdomen pelvis : there is a hypervascular lesion in the superior aspect of the right hepatic lobe measuring 0.8 cm, axial image 7/136. There is a circumscribed low-density lesion in the left hepatic lobe measuring 1.6 cm, image 29/136, Hounsfield units = 41. Further evaluation is indicated which could include three-phase contrast CT or MRI examination. There is moderate intrahepatic biliary dilation. A retrograde study is indicated. The proximal common bile duct is dilated to 2.5 cm. The distal common bile duct measures 0.7 cm at the pancreatic head. Pancreatic duct is dilated and measures 0.6 cm in the proximal body, 0.5 cm in the distal body, and 0.5 cm in the tail. The gallbladder is distended to 11 cm in length. Consider hepatobiliary scan for further characterization. The spleen is enlarged at 15 cm in length. There is a 2.6 cm cyst in the midpole of the left kidney. There is a 1.1 cm stone in the right bladder base. There is a 2.5 cm uncomplicated fat containing umbilical hernia. WBC 4.0 L, RBC 4.70, Hgb 13.9, Hct 40.2, MCV 85.5, MCH 29.6, MCHC 34.6, RDW Std Deviation 43.8, RDW Coeff of Monik 13.9, Plt Count 239, Total Bilirubin 12.50 H, AST 51 H, ALT 112 H, Alkaline Phosphatase 292 H, Total Protein 6.8, Albumin 3.9, Globulin 2.9Lipase 28 PFSH Medical History Diabetes mellitus, type 2 Umbilical hernia Gallbladder problem Nausea RUQ pain Cataract Home Medications ?Medication ?Instructions ?Recorded ?Last Taken ?Type sitagliptin phosphate 25 mg tablet 25 mg PO QHS 01/11/25 History (Onel) Allergy/AdvReac Type Severity Reaction Status Date / Time No Known Allergies Allergy Verified 01/12/25 08:55 Surgical History H/O right inguinal hernia repair History of appendectomy Social History household members: spouse Smoking Status: Never smoker ROS ROS Narrative General: Denies fever/chills HENT: Denies headache, denies stuffy nose, denies sore throat EYES: Denies changes in vision Resp: Denies cough, denies shortness of breath Cardiac: Denies chest pain GI: Right upper quadrant pain, occasional nausea, poor appetite, pale stool : Denies changes in urination Extremity: Denies swelling MSK: Denies weakness Neuro: Denies any numbness/tingling Heme: Denies any bleeding or bruising Skin: Denies rashes, does have yellowing of his skin Psychiatric: No complaints voiced Lab / Micro Data 01/12/25 09:45 01/12/25 09:45 Labs: Laboratory Results - last 24 hr 01/12/25 09:45: WBC 4.0 L, RBC 4.70, Hgb 13.9, Hct 40.2, MCV 85.5, MCH 29.6, MCHC 34.6, RDW Std Deviation 43.8, RDW Coeff of Monik 13.9, Plt Count 239, MPV 10.1, Immature Gran % (Auto) 0.500, Neut % (Auto) 72.7 H, Lymph % (Auto) 15.7 L, [place] % (Auto) 9.7, Eos % (Auto) 1.2, Baso % (Auto) 0.2, Absolute Neuts (auto) 2.9, Absolute Lymphs (auto) 0.63 L, Nucleated RBC % 0, Sodium 133, Potassium 4.0, Chloride 97 L, Carbon Dioxide 23.0, Anion Gap 13, BUN 22 H, Creatinine 0.81, Estim Creat Clear Calc 91.67, Est GFR (MDRD) Non-Af 96, BUN/Creatinine Ratio 27.8 H, Glucose 374 H, Calcium 9.2, Total Bilirubin 12.50 H, AST 51 H, ALT 112 H, Alkaline Phosphatase 292 H, Total Protein 6.8, Albumin 3.9, Globulin 2.9, Albumin/Globulin Ratio 1.3, Lipase 28 01/12/25 10:10: Urine Color Berna, Urine Clarity Clear, Urine pH 6.0, Ur Specific [place] 1.015, Urine Protein 30 H, Urine Glucose (UA) 1000 H, Urine Ketones 5 H, Urine Occult Blood 250 H, Urine Nitrite Negative, Urine Bilirubin 3 H, Urine Urobilinogen 4 H, Ur Leukocyte Esterase 25 H, Urine RBC 5-10 SEEN, Urine WBC 0 SEEN, Ur Squamous Epith Cells 0-5 SEEN, Urine Bacteria 2+, Urine Mucus RARE 01/12/25 16:29: POC Glucose 237 H Imaging Radiology Impression Abdomen/Pelvis CT 01/12/25 10:24 IMPRESSION: There is a hypervascular lesion in the superior aspect of the right hepatic lobe measuring 0.8 cm, axial image 7/136. There is a circumscribed low-density lesion in the left hepatic lobe measuring 1.6 cm, image 29/136, Hounsfield units = 41. Further evaluation is indicated which could include three-phase contrast CT or MRI examination. There is moderate intrahepatic biliary dilation. A retrograde study is indicated. The proximal common bile duct is dilated to 2.5 cm. The distal common bile duct measures 0.7 cm at the pancreatic head. Pancreatic duct is dilated and measures 0.6 cm in the proximal body, 0.5 cm in the distal body, and 0.5 cm in the tail. The gallbladder is distended to 11 cm in length. Consider hepatobiliary scan for further characterization. The spleen is enlarged at 15 cm in length. There is a 2.6 cm cyst in the midpole of the left kidney. There is a 1.1 cm stone in the right bladder base. There is a 2.5 cm uncomplicated fat containing umbilical hernia. Reading Location: [facility] Assessment & Plan Assessment/Plan (1) Jaundice: (2) Dilated bile duct: (3) Dilated pancreatic duct: (4) RUQ pain: (5) Diabetes mellitus, type 2: PLAN: Plan 69-year-old with new onset diabetes in the setting of new onset weight loss, right upper quadrant discomfort and jaundice. Differential diagnosis does include microlithiasis,, ampullary lesion, pancreatic lesion, cholangiocarcinoma. He should undergo MRCP, CA 19-9, ESR, CRP, ERCP with possible spyglass, alpha-fetoprotein, IgG4, ANCA, protein electrophoresis, THANH comprehensive. Charges/Coding Visit Charges Inpatient E&M: 34614 Init Hosp L3
[2025-01-12 20:56] LABS: Erythrocyte Sedimentation Rate 27 mm/hr (0-20)
[2025-01-12 21:33] VITALS: BP 150/80; PULSE 69; RESP 16; TEMP 36.7; O2SAT 98
[2025-01-12 21:45] LABS: Bedside Glucose 222 mg/dL (74-106)
[2025-01-12 22:02] LABS: CRP 5.58 mg/L (0.0-3.0); LDH 143 U/L (87-241)
--- OUTSIDE RECORDS SUMMARY | 2025-01-12 22:34 | XMS RPT_ITS | CCD ---
Author Organization [facility] Care Team Providers Care Environmental Protection Specialist Name Role Phone Care Physician, No Primary Primary Care Provider Unavailable Jay HERRERA, Dr. Hunt Attending Provider Jay HERRERA, Dr. Hunt Emergency Provider [phone] Aleshia HERRERA, Dr. Odonnell Primary Care Provider [phone] Aleshia HERRERA, Dr. Odonnell Attending Provider Aleshia HERRERA, Dr. Odonnell Referring Provider Belle Monk Referring Unavailable Belle Monk Attending Unavailable Belle Monk Primary Care Unavailable Belle Monk Referring Unavailable Belle Monk Attending Unavailable Belle Monk Primary Care Unavailable Gilbert Thompson Attending Unavailable Care Physician, No Primary Primary Care Unava ilable Mianuradhael, Belle Primary Care Unavailable Mianuradhael, Belle Referring Unavailable Freeman Stauffer Attending Unavailable Belle Monk Attending Unavailable Belle Monk Primary Care Unavailable Xiomy HERRERA, Dr. Millard Attending Provider Jeremy Lockett MD Emergency Provider Carl HERRERA, Dr. Clayton Admit Provider Dr. Matilde Henry MD Attending Provider Medications Current Medications Medication Drug Class(es) Dates Sig (Normalized) Sig (Original) [place] (Nk) (3 sources) Start: 07-20-2024 [place] (Nk) Active July 20, 2024 1:00am SITagliptin 25 mg oral tablet (2 sources) Dipeptidyl Peptidase 4 Inhibitor Start: 01-12-2025 take 1 tablet by mouth at bedtime Sitagliptin Phosphate (Januvia) 25 mg tablet Active 25 mg PO AT BEDTIME January 12, 2025 12:00am Completed/Discontinued Medications Medication Drug Class(es) Dates Sig (Normalized) Sig (Original) metFORMIN hydrochloride 500 mg oral tablet (5 sources) Biguanide Start: 07-20-2024 End: 01-12-2025 take 1 tablet by mouth twice daily Metformin 500 mg tablet Discontinued 500 mg PO TWICE A DAY 60 July 20, 2024 1:00am January 12, 2025 8:55am Problems Problem Classification Problem Date Documented Da te Episodic/Chronic Abdominal hernia (2 sources) Umbilical hernia; Translations: [Umbilical hernia without obstruction or gangrene] 01-12-2025 Episodic Abdominal pain (5 sources) Right upper quadrant pain; Translations: [Right upper quadrant pain] Onset: 01-10-2025 01-12-2025 Episodic Biliary tract disease (2 sources) Cholangiectasis; 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] 01-12-2025 Chronic Biliary tract disease (3 sources) Gallbladder problem; Translations: [Disease of gallbladder, unspecified] 01-12-2025 Episodic Diabetes mellitus with complications (6 sources) Ketosis; Translations: [Type 2 diabetes mellitus with ketoacidosis without coma] Onset: 08-11-2024 07-28-2024 Chronic Diabetes mellitus without complication (8 sources) Type 2 diabetes mellitus; Translations: [Type 2 diabetes mellitus without complications] Onset: 10-25-2024 07-28-2024 Chronic Fluid and electrolyte disorders (5 sources) Dehydration; Translations: [Dehydration] 07-28-2024 Episodic Nausea and vomiting (2 sources) Nausea; Translations: [Nausea] 01-12-2025 Episodic Other circulatory disease (5 sources) Elevated blood-pressure reading without diagnosis of hypertension; Translations: [Elevated blood-pressure reading, without diagnosis of hypertension] 07-28-2024 Episodic Other liver diseases (2 sources) Jaundice; Translations: [Unspecified jaundice] 01-12-2025 Episodic Pancreatic disorders (not diabetes) (2 sources) Pancreatic duct disorder; Translations: [Other specified diseases of pancreas] 01-12-2025 Episodic Results Test Name Value Interpretation Reference Range Facility Absolute lymphocyte countOrd ered By: Jeremy Lockett on 01-12-2025 Lymphocytes Auto (Unsp spec) [#/Vol] 0.63 10*3/uL Low 0.83-4.51 [facility] Absolute neutrophil countOrd ered By: Jeremy Lockett on 01-12-2025 Neutrophils (Bld) [#/Vol] 2.9 10*3/uL 2.0-7.7 [facility] Anion gap in Serum or Plasma Ordered By: Jeremy Lockett on 01-12-2025 Anion gap [Moles/Vol] 13 mmol/L 5-15 [facility] Automated lymphocyte count a s percentage of total leukocytesOrdered By: Jeremy Lockett on 01-12-2025 Lymphocytes/100 WBC Auto (Unsp spec) 15.7 % Low 19-41 [facility] BUN/creatinine ratioOrdered By: Jeremy Lockett on 01-12-2025 Urea nitrogen/Creatinine [Mass ratio] 27.8 mg/mg High 10-20 [facility] Basophil percentageOrdered B y: Jeremy Lockett on 01-12-2025 Basophils/100 WBC (Bld) 0.2 % 0-1 [facility] Bilirubin Test strip Ql (U)O rdered By: Jeremy Lockett on 01-12-2025 Bilirubin Ql (U) 3 mg/dL High Negative [facility] Comment on above: COLOR OF URINE MAY A FFECT DIPSTICK RESULTS. Bilirubin, totalOrdered By: Jeremy Lockett on 01-12-2025 Bilirubin [Mass/Vol] 12.50 mg/dL High 0.00-1.30 [facility] Carbon dioxide, total [Moles /volume] in Central venous bloodOrdered By: Jeremy Lockett on 01-12-2025 CO2 [Moles/Vol] 23.0 mmol/L 21.0-32.0 [facility] Chloride assayOrdered By: Hamilton Lockett on 01-12-2025 Chloride [Moles/Vol] 97 mmol/L Low 98-108 [facility] Eosinophil percentageOrdered By: Jeremy Lockett on 01-12-2025 Eosinophils/100 WBC (Bld) 1.2 % 0-5 [facility] Erythrocyte distribution wid th ratioOrdered By: Jeremy Lockett on 01-12-2025 Erythrocyte distribution width (RBC) [Ratio] 13.9 % 11.6-14.6 [facility] Erythrocyte distribution wid th standard deviationOrdered By: Jeremy Lockett on 01-12-2025 Erythrocyte distribution width (RBC) [Ratio] 43.8 fl 35.1-43.9 [facility] Glomerular filtration rate ( GFR) estimation/1.73 sq m using serum, plasma, or whole bOrdered By: Jeremy Lockett on 01-12-2025 GFR/1.73 sq M.predicted among non-blacks MDRD (S/P/Bld) [Vol rate/Area] 96 mL/min/{1.73_m2} >60 [facility] Comment on above: mL/min/1.73m2 CKD-EP I Creatinine Equation (2020) Hematocrit Auto (Bld) [Volum e fraction]Ordered By: Jeremy Lockett on 01-12-2025 Hematocrit (Bld) [Volume fraction] 40.2 % 40-54 [facility] Hemoglobin measurementOrdere d By: Jeremy Lockett on 01-12-2025 Hemoglobin (Bld) [Mass/Vol] 13.9 g/dL 13.0-16.5 [facility] Immature granulocytes/100 WB C Auto (Bld)Ordered By: Jeremy Lockett on 01-12-2025 Immature granulocytes/100 WBC (Bld) 0.500 % 0.0-0.9 [facility] Comment on above: IG% - Immature Granu locytes (promyelocytes, myelocytes and metamyelocytes) > 1% indicates that a LEFT SHIFT is Present. Ketones Test strip Ql (U)Ord ered By: Jeremy Lockett on 01-12-2025 Ketones Ql (U) 5 mg/dl High Negative [facility] Laboratory - Chemistry and C hemistry - challengeOrdered By: Jeremy Lockett on 01-12-2025 AST [Catalytic activity/Vol] 51 U/L High <38 [facility] Lipase measurementOrdered By : Jeremy Lockett on 01-12-2025 Lipase [Catalytic activity/Vol] 28 U/L 13-75 [facility] Comment on above: Please note:LIPASE r evised reference range effective 22. New Lipase methodology. Expected to produce lower values than the previous assay method. NEW Reference Range: 13 - 75 U/L MCV (mean corpuscular volume ) determinationOrdered By: Jeremy Lockett on 01-12-2025 MCV (RBC) [Entitic vol] 85.5 fL 80-94 [facility] Mean corpuscular hemoglobin (MCH) determinationOrdered By: Jeremy Lockett on 01-12-2025 MCH (RBC) [Entitic mass] 29.6 pg 27.0-32.0 [facility] Mean corpuscular hemoglobin concentration (MCHC) determinationOrdered By: Jeremy Lockett on 01-12-2025 MCHC (RBC) [Mass/Vol] 34.6 g/dL 32-36 [facility] Mean platelet volume determi nationOrdered By: Jeremy Lockett on 01-12-2025 Platelet mean volume (Bld) [Entitic vol] 10.1 fL 6.2-12.0 [facility] Microscopic analysis of urin e for red blood cells (RBC)Ordered By: Jeremy Lockett on 01-12-2025 Microscopic analysis of urine for red blood cells (RBC) 5-10 SEEN /hpf 0-5 [facility] Monocyte percentageOrdered B y: Jeremy Lockett on 01-12-2025 Monocytes/100 WBC (Bld) 9.7 % 0-10 [facility] Mucus LM Ql (Urine sed)Order ed By: Jeremy Lockett on 01-12-2025 Mucus Ql (Urine sed) RARE /hpf [facility] Neutrophil percentageOrdered By: Jeremy Lockett on 01-12-2025 Neutrophils/100 WBC (Bld) 72.7 % High 47-70 [facility] Nitrite Test strip Ql (U)Ord ered By: Jeremy Lockett on 01-12-2025 Nitrite Ql (U) Negative Negative [facility] Nucleated red blood cell per centageOrdered By: Jeremy Lockett on 01-12-2025 Nucleated RBC/100 WBC (Bld) [Ratio] 0 % 0-5 [facility] Platelet countOrdered By: Hamilton Lockett on 01-12-2025 Platelets (Bld) [#/Vol] 239 10*3/uL 150-450 [facility] Potassium measurement (mass/ volume)Ordered By: Jeremy Lockett on 01-12-2025 Potassium (Unsp spec) [Mass/Vol] 4.0 mmol/L 3.3-5.1 [facility] Protein Test strip Ql (U)Ord ered By: Jeremy Lockett on 01-12-2025 Protein Ql (U) 30 mg/dl High Negative [facility] RBC Auto (Bld) [#/Vol]Ordere d By: Jeremy Lockett on 01-12-2025 RBC (Bld) [#/Vol] 4.70 10*6/uL 4.6-6.2 [facility] Serum creatinine measurement (mass/volume)Ordered By: Jeremy Lockett on 01-12-2025 Creatinine [Mass/Vol] 0.81 mg/dL 0.70-1.20 [facility] Comment on above: Icterus present, Res ults may be affected. Serum globulin measurementOr dered By: Jeremy Lockett on 01-12-2025 Globulin (S) [Mass/Vol] 2.9 g/dL 2.2-4.2 [facility] Serum glucose measurement (m ass/volume)Ordered By: Jeremy Lockett on 01-12-2025 Glucose [Mass/Vol] 374 mg/dL High 70-[address] [facility] Serum or plasma alanine ordoñez otransferase (ALT) measurementOrdered By: Jeremy Lockett on 01-12-2025 ALT [Catalytic activity/Vol] 112 U/L High <47 [facility] Serum or plasma albumin jenny urement (mass/volume)Ordered By: Jeremy Lockett on 01-12-2025 Albumin [Mass/Vol] 3.9 g/dL 3.4-4.[address] [facility] Serum or plasma albumin/glob ulin mass ratioOrdered By: Jeremy Lockett on 01-12-2025 Albumin/Globulin [Mass ratio] 1.3 {ratio} 0.9-2.4 [facility] Serum or plasma alkaline mitzi sphatase measurementOrdered By: Jeremy Lockett on 01-12-2025 ALP [Catalytic activity/Vol] 292 U/L High 40-129 [facility] Serum or plasma calcium jenny urement (mass/volume)Ordered By: Jeremy Lockett on 01-12-2025 Calcium [Mass/Vol] 9.2 mg/dL 7.6-11.[address] [facility] Serum or plasma urea nitroge n measurement (mass/volume)Ordered By: Jeremy Lockett on 01-12-2025 Urea nitrogen [Mass/Vol] 22 mg/dL High 4-19 [facility] Sodium levelOrdered By: Jeremy Lockett on 01-12-2025 Sodium [Moles/Vol] 133 mmol/L 133-[address] [facility] Squamous epithelial cells de tection in urine sediment by light microscopyOrdered By: Jeremy Lockett on 01-12-2025 Epithelial cells.squamous LM Ql (Urine sed) 0-5 SEEN /hpf 0-5 [facility] Total proteinOrdered By: Gely Lockett on 01-12-2025 Protein [Mass/Vol] 6.8 g/dL 5.9-8.[address] [facility] Urine clarityOrdered By: Gely Lockett on 01-12-2025 Clarity (U) Clear Clear [facility] Urine color determinationOrd ered By: Jeremy Lockett on 01-12-2025 Color (U) Berna Yellow [facility] Urine glucose detectionOrder ed By: Jeremy Lockett on 01-12-2025 Glucose Ql (U) 1000 mg/dl High Normal [facility] Urine leukocyte esterase det ection by dipstickOrdered By: Jeremy Lockett on 01-12-2025 Leukocyte esterase Test strip Ql (U) 25 /ul High Negative [facility] Urine pHOrdered By: Jeremy richardson on 01-12-2025 pH (U) 6.0 [pH] 5.0 - 8.0 [facility] Urine sediment bacteria coun t by microscopy (number/high power field)Ordered By: Jeremy Lockett on 01-12-2025 Bacteria LM.HPF (Urine sed) [#/Area] 2 /[HPF] None Seen [facility] Urine specific gravity measu rementOrdered By: Jeremy Lockett on 01-12-2025 Specific gravity (U) [Rel density] 1.015 1.002-1.030 [facility] Urine urobilinogen measureme ntOrdered By: Jeremy Lockett on 01-12-2025 Urobilinogen Ql (U) 4 mg/dl High Normal [facility] White blood cell (WBC) count Ordered By: Jeremy Lockett on 01-12-2025 WBC (Bld) [#/Vol] 4.0 10*3/uL Low 4.4-11.[address] [facility] White blood cell countOrdere d By: Jeremy Lockett on 01-12-2025 White blood cell count 0 SEEN /hpf 0-5 [facility] Abdomen Limitedon 01-05-2025 Abdomen Limited [facility] [address] [place] [address] Abdomen Limited MR#: [id number] Acct: [id number] Name: ERICK TYOSN Rep #: [id number] : 1955 M 69 From: He malcolm MD PCP: Dr. Belle Monk MD Status: REG CLI Study: Abdomen Limited Date of Exam: 01/05/25 Exam# [id number] Ordering Dr: Belle Monk MD PROCEDURE: ABDOMEN LIMITED 01/05/2025 REASON FOR EXAM: RUQ PAIN VOMITING COMPARISON: None FINDINGS: Liver: Diffusely echogenic suggesting fatty infiltration. Hepatomegaly. The liver measures 22.1 cm. Gallbladder: Gallbladder is distended. Small amount of pericholecystic fluid. Positive sonographic Jones's sign. Gallbladder wall is not thickened. No evidence of gallstones. Common bile duct: Dilated measuring up to 13 mm. . Pancreas: Visualized portions are sonographically unremarkable. Other: Visualized portions of the right kidney are unremarkable. No right upper quadrant ascites. US/Abdomen Limited IMPRESSION: Hepatomegaly and diffuse fatty infiltration of the liver. Distended gallbladder with positive Jones's sign and small amount of pericholecystic fluid. Acalculous cholecystitis should be ruled out. Dilated common bile duct. Reading Location: [facility] CC: Dr. Belle Monk MD Vasc Tech: Signed Normal [facility] Lipaseon 01-05-2025 Lipase [Catalytic activity/Vol] 35 U/L Normal 13-75 [facility] Comment on above: Order Comment: PLESHAHRIAR E ADD A STAT LIPASE FROM 01/04/25 Result Comment: Pleseveriano turner note: LIPASE revised reference range effective 22. New Lipase methodology. Expected to produce lower values than the previous assay method. NEW Reference Range: 13 - 75 U/L Performed By: #### L 100.0100, L500.3400, L501.2450 #### [facility] [address] [place], [place], [id number] Absolute lymphocyte countOrd ered By: Belle Monk on 01-04-2025 Lymphocytes Auto (Unsp spec) [#/Vol] 0.87 10*3/uL 0.83-4.51 [facility] Absolute neutrophil countOrd ered By: Belle Monk on 01-04-2025 Neutrophils (Bld) [#/Vol] 3.5 10*3/uL 2.0-7.7 [facility] Automated lymphocyte count a s percentage of total leukocytesOrdered By: Belle Monk on 01-04-2025 Lymphocytes/100 WBC Auto (Unsp spec) 18.3 % Low 19-41 [facility] Basophil percentageOrdered B y: Belle Monk on 01-04-2025 Basophils/100 WBC (Bld) 0.2 % 0-1 [facility] Bilirubin directOrdered By: Belle Monk on 01-04-2025 Bilirubin.direct [Mass/Vol] 4.87 mg/dL High 0.00-0.30 [facility] Bilirubin, totalOrdered By: Belle Monk on 01-04-2025 Bilirubin [Mass/Vol] 6.87 mg/dL High 0.00-1.30 [facility] CBC W/Diff, Automatedon 12-19 Absolute Lymph 0.87 X10 3/uL Normal 0.83-4.51 [facility] Comment on above: Performed By: #### L 100.0100, L500.3400, L501.2450 #### [facility] [address] [place], [place], [id number] Absolute Neut 3.5 X10 3/uL Normal 2.0-7.7 [facility] Comment on above: Performed By: #### L 100.0100, L500.3400, L501.2450 #### [facility] [address] [place], [address] Basophils/100 WBC (Bld) 0.2 % Normal 0-1 [facility] Comment on above: Performed By: #### L 100.0100, L500.3400, [id number] #### [facility] [address] [place], [address] Eosinophils/100 WBC (Bld) 1.1 % Normal 0-5 [facility] Comment on above: Performed By: #### L 100.0100, L500.3400, [id number] #### [facility] [address] [place], [address] Erythrocyte distribution width (RBC) [Ratio] 13.6 % Normal 11.6-14.6 [facility] Comment on above: Performed By: #### L 100.0100, L500.3400, L501.2450 #### [facility] [address] [place], [address] Hematocrit (Bld) [Volume fraction] 42.5 % Normal 40-54 [facility] Comment on above: Performed By: #### L 100.0100, L500.3400, L501.2450 #### [facility] [address] [place], [address] Hemoglobin (Bld) [Mass/Vol] 14.5 g/dL Normal 13.0-16.5 [facility] Comment on above: Performed By: #### L 100.0100, L500.3400, L501.2450 #### [facility] [address] [place], [address] IG% 0.200 Normal 0.0-0.9 [facility] Comment on above: Result Comment: IG% - Immature Granulocytes (promyelocytes, myelocytes and metamyelocytes) > 1% indicates that a LEFT SHIFT is Present. Performed By: #### L 100.0100, L500.3400, L501.2450 #### [facility] [address] [place], [address] Lymphocytes/100 WBC (Bld) 18.3 % Low 19-41 [facility] Comment on above: Performed By: #### L 100.0100, L500.3400, L501.2450 #### [facility] [address] [place], [address] MCH (RBC) [Entitic mass] 29.2 pg Normal 27.0-32.0 [facility] Comment on above: Performed By: #### L 100.0100, L500.3400, [id number] #### [facility] [address] [place], [address] MCHC (RBC) [Mass/Vol] 34.1 g/dL Normal 32-36 [facility] Comment on above: Performed By: #### L 100.0100, L500.3400, L501.2450 #### [facility] [address] [place], [address] MCV (RBC) [Entitic vol] 85.7 fL Normal 80-94 [facility] Comment on above: Performed By: #### L 100.0100, L500.3400, [id number] #### [facility] [address] [place], [address] Monocytes/100 WBC (Bld) 6.5 % Normal 0-10 [facility] Comment on above: Performed By: #### L 100.0100, L500.3400, [id number] #### [facility] [address] [place], [address] Neutrophils/100 WBC (Bld) 73.7 % High 47-70 [facility] Comment on above: Performed By: #### L 100.0100, L500.3400, L501.2450 #### [facility] [address] [place], [address] Nucleated RBC (Bld) [#/Vol] 0 10*3/uL Normal 0-5 [facility] Comment on above: Performed By: #### L 100.0100, L500.3400, L501.2450 #### [facility] [address] [place], [address] Platelet mean volume (Bld) [Entitic vol] 9.8 fL Normal 6.2-12.0 [facility] Comment on above: Performed By: #### L 100.0100, L500.3400, [id number] #### [facility] [address] [place], [address] Platelets (Bld) [#/Vol] 251 10*3/uL Normal 150-450 [facility] Comment on above: Performed By: #### L 100.0100, L500.3400, [id number] #### [facility] [address] [place], [address] RBC (Bld) [#/Vol] 4.96 10*6/uL Normal 4.6-6.2 [facility] Comment on above: Performed By: #### L 100.0100, L500.3400, L501.2450 #### [facility] [address] [place], [address] RDW SD 42.6 fl Normal 35.1-43.9 [facility] Comment on above: Performed By: #### L 100.0100, L500.3400, [id number] #### [facility] [address] [place], [address] WBC (Bld) [#/Vol] 4.8 10*3/uL Normal 4.4-11.[address] [facility] Comment on above: Performed By: #### L 100.0100, L500.3400, L501.2450 #### [facility] [address] [place], [address] Eosinophil percentageOrdered By: Bellejose guadalupe Monk on 01-04-2025 Eosinophils/100 WBC (Bld) 1.1 % 0-5 [facility] Erythrocyte distribution wid th ratioOrdered By: [facility] on 01-04-2025 Erythrocyte distribution width (RBC) [Ratio] 13.6 % 11.6-14.6 [facility] Erythrocyte distribution wid th standard deviationOrdered By: [facility] on 01-04-2025 Erythrocyte distribution width (RBC) [Ratio] 42.6 fl 35.1-43.9 [facility] Hematocrit Auto (Bld) [Volum e fraction]Ordered By: [facility] on 01-04-2025 Hematocrit (Bld) [Volume fraction] 42.5 % 40-54 [facility] Hemoglobin measurementOrdere d By: Belle Monk on 01-04-2025 Hemoglobin (Bld) [Mass/Vol] 14.5 g/dL 13.0-16.5 [facility] Immature granulocytes/100 WB C Auto (Bld)Ordered By: Belle Mianuradha on 01-04-2025 Immature granulocytes/100 WBC (Bld) 0.200 % 0.0-0.9 [facility] Comment on above: IG% - Immature Granu locytes (promyelocytes, myelocytes and metamyelocytes) > 1% indicates that a LEFT SHIFT is Present. Laboratory - Chemistry and C hemistry - challengeOrdered By: Belle Monk on 01-04-2025 AST [Catalytic activity/Vol] 59 U/L High <38 [facility] Lipase measurementOrdered By : [facility] on 01-04-2025 Lipase [Catalytic activity/Vol] 35 U/L 13-75 [facility] Comment on above: Please note:LIPASE r evised reference range effective 22. New Lipase methodology. Expected to produce lower values than the previous assay method. NEW Reference Range: 13 - 75 U/L Liver Profileon 01-04-2025 Albumin [Mass/Vol] 4.2 g/dL Normal 3.4-4.[address] [facility] Comment on above: Performed By: #### L 100.0100, L500.3400, L501.2450 #### [facility] [address] [place], [address] ALK PHOS 270 U/L High 40-129 [facility] Comment on above: Performed By: #### L 100.0100, L500.3400, L501.2450 #### [facility] [address] [place], [address] ALT [Catalytic activity/Vol] 202 U/L High <=46 [facility] Comment on above: Performed By: #### L 100.0100, L500.3400, L501.2450 #### [facility] [address] [place], [address] AST [Catalytic activity/Vol] 59 U/L High <=37 [facility] Comment on above: Performed By: #### L 100.0100, L500.3400, L501.2450 #### [facility] [address] [place], [address] Bilirubin [Mass/Vol] 6.87 mg/dL High 0.00-1.30 [facility] Comment on above: Performed By: #### L 100.0100, L500.3400, L501.2450 #### [facility] [address] [place], [address] Bilirubin.direct [Mass/Vol] 4.87 mg/dL High 0.00-0.30 [facility] Comment on above: Performed By: #### L 100.0100, L500.3400, [id number] #### [facility] [address] [place], [address] Globulin (S) [Mass/Vol] 2.9 g/dL Normal 2.2-4.2 [facility] Comment on above: Performed By: #### L 100.0100, L500.3400, L501.2450 #### [facility] [address] [place], [address] T PROT 7.1 g/dL Normal 5.9-8.4 [facility] Comment on above: Performed By: #### L 100.0100, L500.3400, [id number] #### [facility] [address] [place], [address] MCV (mean corpuscular volume ) determinationOrdered By: Belle Monk on 01-04-2025 MCV (RBC) [Entitic vol] 85.7 fL 80-94 [facility] Mean corpuscular hemoglobin (MCH) determinationOrdered By: Belle Monk on 01-04-2025 MCH (RBC) [Entitic mass] 29.2 pg 27.0-32.0 [facility] Mean corpuscular hemoglobin concentration (MCHC) determinationOrdered By: Belle Monk on 01-04-2025 MCHC (RBC) [Mass/Vol] 34.1 g/dL 32-36 [facility] Mean platelet volume determi nationOrdered By: Belle Monk on 01-04-2025 Platelet mean volume (Bld) [Entitic vol] 9.8 fL 6.2-12.0 [facility] Monocyte percentageOrdered B y: Belle Monk on 01-04-2025 Monocytes/100 WBC (Bld) 6.5 % 0-10 [facility] Neutrophil percentageOrdered By: Belle Monk on 01-04-2025 Neutrophils/100 WBC (Bld) 73.7 % High 47-70 [facility] Nucleated red blood cell per centageOrdered By: Belle Monk on 01-04-2025 Nucleated RBC/100 WBC (Bld) [Ratio] 0 % 0-5 [facility] Platelet countOrdered By: Johnny Monk on 01-04-2025 Platelets (Bld) [#/Vol] 251 10*3/uL 150-450 [facility] RBC Auto (Bld) [#/Vol]Ordere d By: Belle Monk on 01-04-2025 RBC (Bld) [#/Vol] 4.96 10*6/uL 4.6-6.2 [facility] Serum globulin measurementOr dered By: Belle Monk on 01-04-2025 Globulin (S) [Mass/Vol] 2.9 g/dL 2.2-4.2 [facility] Serum or plasma alanine ordoñez otransferase (ALT) measurementOrdered By: Belle Monk on 01-04-2025 ALT [Catalytic activity/Vol] 202 U/L High <47 [facility] Serum or plasma albumin jenny urement (mass/volume)Ordered By: Belle Monk on 01-04-2025 Albumin [Mass/Vol] 4.2 g/dL 3.4-4.[address] [facility] Serum or plasma alkaline mitzi sphatase measurementOrdered By: Belle Monk on 01-04-2025 ALP [Catalytic activity/Vol] 270 U/L High 40-129 [facility] Total proteinOrdered By: Jordon Monk on 01-04-2025 Protein [Mass/Vol] 7.1 g/dL 5.9-8.[address] [facility] White blood cell (WBC) count Ordered By: Belle Monk on 01-04-2025 WBC (Bld) [#/Vol] 4.8 10*3/uL 4.4-11.[address] [facility] Albumin DL <= 20 mg/L (U) [M ass/Vol]Ordered By: Belle Monk on 10-22-2024 Urine Random Microalbumin < 12.0 mg/L NO RANGE EST. [facility] Anion gap in Serum or Plasma Ordered By: Belle Monk on 10-22-2024 Anion gap [Moles/Vol] 11 mmol/L 5-15 [facility] BUN/creatinine ratioOrdered By: Belle Monk on 10-22-2024 Urea nitrogen/Creatinine [Mass ratio] 27.6 mg/mg High 10-20 [facility] Bilirubin, totalOrdered By: Belle Monk on 10-22-2024 Bilirubin [Mass/Vol] 0.88 mg/dL 0.00-1.30 [facility] Calculated very low density lipoprotein (VLDL) cholesterol measurementOrdered By: Belle Monk on 10-22-2024 Calculated very low density lipoprotein (VLDL) cholesterol measurement 8 mg/dL 5-40 [facility] VLDL Cholesterol 8 mg/dL 5-40 [facility] Carbon dioxide, total [Moles /volume] in Central venous bloodOrdered By: Belle Monk on 10-22-2024 CO2 [Moles/Vol] 25.9 mmol/L 21.0-32.0 [facility] Chloride assayOrdered By: Johnny Monk on 10-22-2024 Chloride [Moles/Vol] 103 mmol/L 98-108 [facility] Comprehensive Metabolic Prof ilon 10-22-2024 Albumin [Mass/Vol] 4.5 g/dL Normal 3.4-4.[address] [facility] Comment on above: Performed By: #### L 502.0250, L500.4050, L501.9985, L500.4100 #### [facility] [address] [place], [address] Albumin/Globulin [Mass ratio] 1.6 {ratio} Normal 0.9-2.4 [facility] Comment on above: Performed By: #### L 502.0250, L500.4050, L501.9985, L500.4100 #### [facility] [address] [place], [address] ALK PHOS 94 U/L Normal 40-129 [facility] Comment on above: Performed By: #### L 502.0250, L500.4050, L501.9985, L500.4100 #### [facility] [address] [place], [address] ALT [Catalytic activity/Vol] 32 U/L Normal <=46 [facility] Comment on above: Performed By: #### L 502.0250, L500.4050, L501.9985, L500.4100 #### [facility] [address] [place], [address] AST [Catalytic activity/Vol] 22 U/L Normal <=37 [facility] Comment on above: Performed By: #### L 502.0250, L500.4050, L501.9985, L500.4100 #### [facility] [address] [place], [address] Bilirubin [Mass/Vol] 0.88 mg/dL Normal 0.00-1.30 [facility] Comment on above: Performed By: #### L 502.0250, L500.4050, L501.9985, L500.4100 #### [facility] [address] [place], [address] BUN/CRE 27.6 RATIO High 10-20 [facility] Comment on above: Performed By: #### L 502.0250, L500.4050, L501.9985, L500.4100 #### [facility] [address] [place], [address] Calcium [Mass/Vol] 9.3 mg/dL Normal 7.6-11.[address] [facility] Comment on above: Performed By: #### L 502.0250, L500.4050, L501.9985, L500.4100 #### [facility] [address] [place], [address] Chloride [Moles/Vol] 103 mmol/L Normal 98-108 [facility] Comment on above: Performed By: #### L 502.0250, L500.4050, L501.9985, L500.4100 #### [facility] [address] [place], [address] CO2 [Moles/Vol] 25.9 mmol/L Normal 21.0-32.0 [facility] Comment on above: Performed By: #### L 502.0250, L500.4050, L501.9985, L500.4100 #### [facility] [address] [place], [address] Creatinine [Mass/Vol] 0.87 mg/dL Normal 0.70-1.20 [facility] Comment on above: Performed By: #### L 502.0250, L500.4050, L501.9985, L500.4100 #### [facility] [address] [place], [address] GAP 11 Normal 5-15 [facility] Comment on above: Performed By: #### L 502.0250, L500.4050, L501.9985, L500.4100 #### [facility] [address] [place], [address] GFR/1.73 sq M.predicted among non-blacks MDRD (S/P/Bld) [Vol rate/Area] 93 mL/min/{1.73_m2} Normal >60 [facility] Comment on above: Result Comment: mL/m in/1.73m2 CKD-EPI Creatinine Equation (2020) Performed By: #### L 502.0250, L500.4050, L501.9985, L500.4100 #### [facility] [address] [place], [address] Globulin (S) [Mass/Vol] 2.7 g/dL Normal 2.2-4.2 [facility] Comment on above: Performed By: #### L 502.0250, L500.4050, L501.9985, L500.4100 #### [facility] [address] [place], [address] Glucose [Mass/Vol] 149 mg/dL High 70-[address] [facility] Comment on above: Performed By: #### L 502.0250, L500.4050, L501.9985, L500.4100 #### [facility] [address] [place], [address] Potassium [Moles/Vol] 4.1 mmol/L Normal 3.3-5.1 [facility] Comment on above: Performed By: #### L 502.0250, L500.4050, L501.9985, L500.4100 #### [facility] [address] [place], [address] Sodium [Moles/Vol] 140 mmol/L Normal 133-[address] [facility] Comment on above: Performed By: #### L 502.0250, L500.4050, L501.9985, L500.4100 #### [facility] [address] [place], [address] T PROT 7.2 g/dL Normal 5.9-8.4 [facility] Comment on above: Performed By: #### L 502.0250, L500.4050, L501.9985, L500.4100 #### [facility] [address] [place], [address] Urea nitrogen [Mass/Vol] 24 mg/dL High 4-19 [facility] Comment on above: Performed By: #### L 502.0250, L500.4050, L501.9985, L500.4100 #### [facility] [address] [place], [address] Creatinine Unsp time (U) [Ma ss/Vol]Ordered By: Belle Monk on 10-22-2024 Creatinine (U) [Mass/Vol] 178.00 mg/dL 39.00-259.00 [facility] GFR/1.73 sq M.predicted michelle g non-blacks MDRD (S/P/Bld) [Vol rate/Area]Ordered By: Belle Monk on 10-22-2024 Estimated GFR (MDRD) Non-Af Amer 93 >60 [facility] Comment on above: mL/min/1.73m2 CKD-EP I Creatinine Equation (2020) Glomerular filtration rate ( GFR) estimation/1.73 sq m using serum, plasma, or whole bOrdered By: Belle Monk on 10-22-2024 GFR/1.73 sq M.predicted among non-blacks MDRD (S/P/Bld) [Vol rate/Area] 93 mL/min/{1.73_m2} >60 [facility] Comment on above: mL/min/1.73m2 CKD-EP I Creatinine Equation (2020) Hemoglobin A1con 10-22-2024 HbA1c (Bld) [Mass fraction] 6.9 % Normal <=5.6 [facility] Comment on above: Performed By: #### L 502.0250, L500.4050, L501.9985, L500.4100 #### [facility] [address] [place], [address] Hemoglobin A1c percentageOrd ered By: Belle Monk on 10-22-2024 HbA1c (Bld) [Mass fraction] 6.9 % >5.7 [facility] LDL calc ser/plasOrdered By: Belle Monk on 10-22-2024 Cholesterol in LDL [Mass/Vol] 46 mg/dL [facility] Comment on above: Exhfgqmapi=050-095 m g/dL & Higher Keyy=544 mg/dL or greater LDL Cholesterol, Calculated 46 mg/dL [facility] Comment on above: Slqijhhewj=145-681 m g/dL & Higher Zfya=296 mg/dL or greater Laboratory - Chemistry and C hemistry - challengeOrdered By: Belle Monk on 10-22-2024 AST [Catalytic activity/Vol] 22 U/L <38 [facility] Lipid Profileon 10-22-2024 CHOL:HDL 2.35 Normal [facility] Comment on above: Performed By: #### L 502.0250, L500.4050, L501.9985, L500.4100 ####[facility] [address] [place], [address] Cholesterol [Mass/Vol] 94 mg/dL Normal <=200 [facility] Comment on above: Result Comment: Chol esterol level, Desirable <200 mg/dL Borderline high cholesterol 200-239 mg/dL High cholesterol >=240 mg/dL Recommendations of the NCEP Adult Treatment Panel for the following risk-cutoff thresholds for the [place] population. Performed By: #### L 502.0250, L500.4050, L501.9985, L500.4100 ####[facility] [address] [place], [address] Cholesterol in HDL [Mass/Vol] 40 mg/dL Normal [facility] Comment on above: Result Comment: Marilyn onal Cholesterol Education Program (NCEP) guidelines: <40 mg/dL: Low HDL-cholesterol (major risk factor for CHD) >= 60 mg/dL: High HDL-cholesterol (negative risk factor for CHD) HDL-cholesterol is affected by a number of factors, e.g. smoking, exercise, hormones, sex and age. Performed By: #### L 502.0250, L500.4050, L501.9985, L500.4100 ####[facility] [address] [place], [address] Cholesterol in LDL [Mass/Vol] 46 mg/dL Normal [facility] Comment on above: Result Comment: Bord jehknv=484-795 mg/dL Higher Vrvt=672 mg/dL or greater Performed By: #### L 502.0250, L500.4050, L501.9985, L500.4100 ####[facility] [address] [place], [address] Cholesterol in VLDL [Mass/Vol] 8 mg/dL Normal 5-40 [facility] Comment on above: Performed By: #### L 502.0250, L500.4050, L501.9985, L500.4100 ####[facility] [address] [place], [address] Triglyceride [Mass/Vol] 42 mg/dL Normal [facility] Comment on above: Result Comment: The drugs N-Acetylcysteine and Metamizole may falsely depress this assay. Normal range: <150 mg/dL Borderline High: 150-199 mg/dL High: 200-499 mg/dL Very High: >500 mg/dL Performed By: #### L 502.0250, L500.4050, L501.9985, L500.4100 ####[facility] [address] [place], [address] Microalb:Creat Ratio,Random URon 10-22-2024 Creatinine [Mass/Vol] 178.00 mg/dL Normal 39.00-259.00 [facility] Comment on above: Performed By: #### L 502.0250, L500.4050, L501.9985, L500.4100 ####[facility] [address] [place], [address] MALB:CREAT UNABLE TO CALCULATE Normal [facility] Comment on above: Performed By: #### L 502.0250, L500.4050, L501.9985, L500.4100 ####[facility] [address] [place], [address] MICROALBUMIN,UR < 12.0 Normal NO RANGE EST. [facility] Comment on above: Performed By: #### L 502.0250, L500.4050, L501.9985, L500.4100 ####[facility] [address] [place], [address] Microalbumin/creat ratio urO rdered By: Belle Monk on 10-22-2024 Urine Microalbumin/Creatinine Ratio UNABLE TO CALCULATE mg/g CRE [facility] Urine microalbumin/creatinine ratio measurement UNABLE TO CALCULATE mg/g CRE [facility] Potassium (Unsp spec) [Mass/ Vol]Ordered By: Belle Monk on 10-22-2024 Potassium [Moles/Vol] 4.1 mmol/L 3.3-5.1 [facility] Potassium measurement (mass/ volume)Ordered By: Belle Monk on 10-22-2024 Potassium (Unsp spec) [Mass/Vol] 4.1 mmol/L 3.3-5.1 [facility] Random urine creatinine jenny urement (mass/volume)Ordered By: Belle Monk on 10-22-2024 Creatinine Unsp time (U) [Mass/Vol] 178.00 mg/dL 39.00-259.00 [facility] Screening total cholesterol/ high density lipoprotein (HDL) cholesterol ratioOrdered By: Belle Monk on 10-22-2024 Cholesterol.total/Mya sterol in HDL [Mass ratio] 2.35 {ratio} [facility] Serum creatinine measurement (mass/volume)Ordered By: Belle Monk on 10-22-2024 Creatinine [Mass/Vol] 0.87 mg/dL 0.70-1.20 [facility] Serum globulin measurementOr dered By: Belle Monk on 10-22-2024 Globulin (S) [Mass/Vol] 2.7 g/dL 2.2-4.2 [facility] Serum glucose measurement (m ass/volume)Ordered By: Belle Monk on 10-22-2024 Glucose [Mass/Vol] 149 mg/dL High 70-[address] [facility] Serum or plasma alanine ordoñez otransferase (ALT) measurementOrdered By: Belle Monk on 10-22-2024 ALT [Catalytic activity/Vol] 32 U/L <47 [facility] Serum or plasma albumin jenny urement (mass/volume)Ordered By: Belle Monk on 10-22-2024 Albumin [Mass/Vol] 4.5 g/dL 3.4-4.[address] [facility] Serum or plasma albumin/glob ulin mass ratioOrdered By: Belle Monk on 10-22-2024 Albumin/Globulin [Mass ratio] 1.6 {ratio} 0.9-2.4 [facility] Serum or plasma alkaline mitzi sphatase measurementOrdered By: Belle Monk on 10-22-2024 ALP [Catalytic activity/Vol] 94 U/L 40-129 [facility] Serum or plasma calcium jenny urement (mass/volume)Ordered By: Belle Monk on 10-22-2024 Calcium [Mass/Vol] 9.3 mg/dL 7.6-11.[address] [facility] Serum or plasma cholesterol in HDL measurement (mass/volume)Ordered By: Belle Monk on 10-22-2024 Cholesterol in HDL [Mass/Vol] 40 mg/dL >40 [facility] Comment on above: National Cholesterol Education Program (NCEP) guidelines:<40 mg/dL: Low HDL-cholesterol (major risk factor for CHD)>= 60 mg/dL: High HDL-cholesterol (negative risk factor for CHD)HDL-cholesterol is affected by a number of factors, e.g. smoking, exercise, hormones, sex and age. Serum or plasma cholesterol measurement (mass/volume)Ordered By: Belle Monk on 10-22-2024 Cholesterol [Mass/Vol] 94 mg/dL <201 [facility] Comment on above: Cholesterol level, D esirable <200 mg/dLBorderline high cholesterol 200-239 mg/dLHigh cholesterol >=240 mg/dLRecommendations of the NCEP Adult Treatment Panel for the following risk-cutoff thresholds for the [place] population. Serum or plasma urea nitroge n measurement (mass/volume)Ordered By: Belle Monk on 10-22-2024 Urea nitrogen [Mass/Vol] 24 mg/dL High 4-19 [facility] Sodium levelOrdered By: Linda Monk on 10-22-2024 Sodium [Moles/Vol] 140 mmol/L 133-[address] [facility] Total proteinOrdered By: Jordon Monk on 10-22-2024 Protein [Mass/Vol] 7.2 g/dL 5.9-8.[address] [facility] Triglycerides measurementOrd ered By: Belle Monk on 10-22-2024 Triglyceride [Mass/Vol] 42 mg/dL <199 [facility] Comment on above: The drugs N-Acetylcy steine and Metamizole may falsely depress this assay. Normal range: <150 mg/dLBorderline High: 150-199 mg/dLHigh: 200-499 mg/dLVery High: >500 mg/dL Urine albumin measurement wi detection limit of 20 mg/L or less (mass/volume)Ordered By: Belle Monk on 10-22-2024 Albumin DL <= 20 mg/L (U) [Mass/Vol] < 12.0 mg/L NO RANGE EST. [facility] 12 Lead EKGon 07-20-2024 12 Lead EKG [facility] [address] [place] [address] 12 Lead EKG 07/20/24 1617 MR#: [id number] Acct: [id number] Name: ERICK TYSON Rep #: [id number] : [id number] 69 From: Hector Brito MD Attending Dr: Status: DEP ER Ordering Dr: Gilbert Thompson MD Date: 07/20/24 Location: ED Sex: M C Admitted: Test Reason : BLOOD SUGAR Blood Pressure : */* mmHG Vent. Rate : 88 BPM Atrial Rate : 88 BPM P-R Int : 146 ms QRS Dur : 96 ms QT Int : 368 ms P-R-T Axes : 53 -28 9 degrees QTcB Int : 445 ms Normal sinus rhythm Nonspecific ST abnormality Abnormal ECG Confirmed by OBDULIO HERRERA, HECTOR ([id number]), general expeditor NIYA MCDOWELL ([id number]) on 07/22/2024 6:11:58 AM Referred By: Confirmed By: HECTOR BRITO MD 07/22/24 0611 Date Hector Brito MD CC: Dr. Gilbert Thompson MD; No Primary Care Physician Signed Normal [facility] Absolute neutrophil countOrd ered By: Gilbert Thompson on 07-20-2024 Neutrophils (Bld) [#/Vol] 4.5 10*3/uL 2.0-7.7 [facility] Basic Metabolic Profile (BMP )on 07-20-2024 BUN/CRE 15.2 RATIO Normal 10-20 [facility] Comment on above: Performed By: #### L 100.0100, L500.2500 ####[facility] [address] [place], [address] CA,Total 9.5 mg/dL Normal 8.5-10.1 [facility] Comment on above: Performed By: #### L 100.0100, L500.2500 ####[facility] [address] [place], [address] Chloride [Moles/Vol] 102 mmol/L Normal 98-107 [facility] Comment on above: Performed By: #### L 100.0100, L500.2500 ####[facility] [address] [place], [address] CO2 [Moles/Vol] 29.0 mmol/L Normal 21.0-32.0 [facility] Comment on above: Performed By: #### L 100.0100, L500.2500 ####[facility] [address] [place], [address] Creatinine [Mass/Vol] 1.12 mg/dL Normal 0.70-1.30 [facility] Comment on above: Result Comment: The validity of the calculated GFR GFRAA in patients over 70 years has not been determined. Clinical correlation is essential. Performed By: #### L 100.0100, L500.2500 ####[facility] [address] [place], [address] ECRCL 74.43 ml/min Normal [facility] Comment on above: Performed By: #### L 100.0100, L500.2500 ####[facility] [address] [place], [address] EST GFR - AA 84 mL/min Normal >60 [facility] Comment on above: Result Comment: Afri can Swazi GFR Calc Performed By: #### L 100.0100, L500.2500 ####[facility] [address] [place], [address] GAP 6 Normal 5-15 [facility] Comment on above: Performed By: #### L 100.0100, L500.2500 ####[facility] [address] [place], [address] GFR/1.73 sq M.predicted among non-blacks MDRD (S/P/Bld) [Vol rate/Area] 69 mL/min/{1.73_m2} Normal >60 [facility] Comment on above: Result Comment: Non- GFR Calc Performed By: #### L 100.0100, L500.2500 ####[facility] [address] [place], [address] Glucose [Mass/Vol] 474 mg/dL Invalid Interpretation Code 74-106 [facility] Comment on above: Result Comment: Crit ical Result(s) Called at: 17:22:04 07/20/2024 by: HAFSA RAE TO LEONARDA HICKS. Results read back by same. Glucose result greater than or equal to 200 mg/dL suggests DIABETES MELLITUS per A.D.A. criteria. Performed By: #### L 100.0100, L500.2500 ####[facility] [address] [place], [address] Potassium [Moles/Vol] 3.8 mmol/L Normal 3.5-5.1 [facility] Comment on above: Performed By: #### L 100.0100, L500.2500 ####[facility] [address] [place], [address] Sodium [Moles/Vol] 137 mmol/L Normal 136-[address] [facility] Comment on above: Performed By: #### L 100.0100, L500.2500 ####[facility] [address] [place], [address] Urea nitrogen [Mass/Vol] 17 mg/dL Normal 7-18 [facility] Comment on above: Performed By: #### L 100.0100, L500.2500 ####[facility] [address] [place], [address] BUN Normal 7-18 [facility] Comment on above: Result Comment: DUPL ICATE ORDER Performed By: #### L 500.2500 ####[facility] [address] [place], [address] BUN/CRE Normal 10-20 [facility] Comment on above: Result Comment: DUPL ICATE ORDER Performed By: #### L 500.2500 ####[facility] [address] [place], [address] CA,Total Normal 8.5-10.1 [facility] Comment on above: Result Comment: DUPL ICATE ORDER Performed By: #### L 500.2500 ####[facility] [address] [place], [address] CL Normal 98-107 [facility] Comment on above: Result Comment: DUPL ICATE ORDER Performed By: #### L 500.2500 ####[facility] [address] [place], [address] CO2 Normal 21.0-32.0 [facility] Comment on above: Result Comment: DUPL ICATE ORDER Performed By: #### L 500.2500 ####[facility] [address] [place], [address] CREAT,SERUM Normal 0.70-1.30 [facility] Comment on above: Result Comment: DUPL ICATE ORDER Performed By: #### L 500.2500 ####[facility] [address] [place], [address] EST GFR Normal >60 [facility] Comment on above: Result Comment: DUPL ICATE ORDER Performed By: #### L 500.2500 ####[facility] [address] [place], [address] EST GFR - AA Normal >60 [facility] Comment on above: Result Comment: DUPL ICATE ORDER Performed By: #### L 500.2500 ####[facility] [address] [place], [address] GAP Normal 5-15 [facility] Comment on above: Result Comment: DUPL ICATE ORDER Performed By: #### L 500.2500 ####[facility] [address] [place], [address] GLU Normal 74-106 [facility] Comment on above: Result Comment: DUPL ICATE ORDER Performed By: #### L 500.2500 ####[facility] [address] [place], [address] Potassium Normal 3.5-5.1 [facility] Comment on above: Result Comment: DUPL ICATE ORDER Performed By: #### L 500.2500 ####[facility] [address] [place], [address] Basic Metabolic Profile (BMP) Normal 136-145 [facility] Comment on above: Result Comment: DUPL ICATE ORDER Performed By: #### L 500.2500 ####[facility] [address] [place], [address] Basophil percentageOrdered B y: Gilbert Thompson on 07-20-2024 Basophils/100 WBC (Bld) 0.3 % 0-1 [facility] Bedside Glucoseon 07-20-2024 FINGERSTICK GLU 483 mg/dL Invalid Interpretation Code 74-106 [facility] Comment on above: Result Comment: Dr Selin ly Followed MANAGEMENT OF PATIENT CARE PER NURSING PROTOCOL Performed By: #### L 501.080 #### [facility] [address] [place], [address] Bilirubin Test strip Ql (U)O rdered By: Gilbert Thompson on 07-20-2024 Bilirubin Ql (U) Negative Negative [facility] Blood urea nitrogen (BUN)/cr eatinine ratioOrdered By: Gilbert Thompson on 07-20-2024 Urea nitrogen/Creatinine [Mass ratio] 15.2 mg/mg 10-20 [facility] CBC W/Diff, Automatedon 12-3 Absolute Lymph 1.49 X10 3/uL Normal 0.83-4.51 [facility] Comment on above: Performed By: #### L 100.0100, L500.2500 ####[facility] [address] [place], [address] Absolute Neut 4.5 X10 3/uL Normal 2.0-7.7 [facility] Comment on above: Performed By: #### L 100.0100, L500.2500 ####[facility] [address] [place], [address] Basophils/100 WBC (Bld) 0.3 % Normal 0-1 [facility] Comment on above: Performed By: #### L 100.0100, L500.2500 ####[facility] [address] [place], [address] Eosinophils/100 WBC (Bld) 1.4 % Normal 0-5 [facility] Comment on above: Performed By: #### L 100.0100, L500.2500 ####[facility] [address] [place], [address] Erythrocyte distribution width (RBC) [Ratio] 12.5 % Normal 11.6-14.6 [facility] Comment on above: Performed By: #### L 100.0100, L500.2500 ####[facility] [address] [place], [address] Hematocrit (Bld) [Volume fraction] 46.1 % Normal 40-54 [facility] Comment on above: Performed By: #### L 100.0100, L500.2500 ####[facility] [address] [place], [address] Hemoglobin (Bld) [Mass/Vol] 16.7 g/dL High 13.0-16.5 [facility] Comment on above: Performed By: #### L 100.0100, L500.2500 ####[facility] [address] [place], [address] IG% 0.300 Normal 0.0-0.9 [facility] Comment on above: Result Comment: IG% - Immature Granulocytes (promyelocytes, myelocytes and metamyelocytes) > 1% indicates that a LEFT SHIFT is Present. Performed By: #### L 100.0100, L500.2500 ####[facility] [address] [place], [address] Lymphocytes/100 WBC (Bld) 22.5 % Normal 19-41 [facility] Comment on above: Performed By: #### L 100.0100, L500.2500 ####[facility] [address] [place], [address] MCH (RBC) [Entitic mass] 30.8 pg Normal 27.0-32.0 [facility] Comment on above: Performed By: #### L 100.0100, L500.2500 ####[facility] [address] [place], [address] MCHC (RBC) [Mass/Vol] 36.2 g/dL High 32-36 [facility] Comment on above: Performed By: #### L 100.0100, L500.2500 ####[facility] [address] [place], [address] MCV (RBC) [Entitic vol] 84.9 fL Normal 80-94 [facility] Comment on above: Performed By: #### L 100.0100, L500.2500 ####[facility] [address] [place], [address] Monocytes/100 WBC (Bld) 6.8 % Normal 0-10 [facility] Comment on above: Performed By: #### L 100.0100, L500.2500 ####[facility] [address] [place], [address] Neutrophils/100 WBC (Bld) 68.7 % Normal 47-70 [facility] Comment on above: Performed By: #### L 100.0100, L500.2500 ####[facility] [address] [place], [address] Nucleated RBC (Bld) [#/Vol] 0 10*3/uL Normal 0-5 [facility] Comment on above: Performed By: #### L 100.0100, L500.2500 ####[facility] [address] [place], [address] Platelet mean volume (Bld) [Entitic vol] 9.1 fL Normal 6.2-12.0 [facility] Comment on above: Performed By: #### L 100.0100, L500.2500 ####[facility] [address] [place], [address] Platelets (Bld) [#/Vol] 207 10*3/uL Normal 150-450 [facility] Comment on above: Performed By: #### L 100.0100, L500.2500 ####[facility] [address] [place], [address] RBC (Bld) [#/Vol] 5.43 10*6/uL Normal 4.6-6.2 [facility] Comment on above: Performed By: #### L 100.0100, L500.2500 ####[facility] [address] [place], [address] RDW SD 37.6 fl Normal 35.1-43.9 [facility] Comment on above: Performed By: #### L 100.0100, L500.2500 ####[facility] [address] [place], [address] WBC (Bld) [#/Vol] 6.6 10*3/uL Normal 4.4-11.0 [facility] Comment on above: Performed By: #### L 100.0100, L500.2500 ####[facility] [address] [place], [address] Carbon dioxide measurementOr dered By: Gilbert Thompson on 07-20-2024 CO2 [Moles/Vol] 29.0 mmol/L 21.0-32.0 [facility] Chloride measurementOrdered By: Gilbert Thompson on 07-20-2024 Chloride [Moles/Vol] 102 mmol/L 98-107 [facility] Emergency Department Summary on 07-20-2024 Emergency Department Summary [facility] Medical Records Department [address] [place] [address] Emergency Department Summary 07/20/24 MR#: [id number] Acct: [id number] Name: ERICK TYSON Rep #: [id number] : 1955 69 From: Gilbert Thompson MD PCP: Care Physician,No Primary Status:DEP ER Location: ED HPI History of Present Illness Chief Complaint: Hyperglycemia PFSH [facility] Medical History Cataract Home Medications ???Medication ???Instructions ???Recorded ???Last Taken ???Type NK 07/20/24 Unknown History metformin 500 mg tablet 500 mg PO BID #60 tabs 07/20/24 Unknown Rx Allergy/AdvReac Type Severity Reaction Status Date / Time No Known Allergies Allergy Verified 07/20/24 15:06 Social History (Updated 07/20/24 @ 17:[address] Gilbert Thompson MD) household members: spouse Smoking Status: Never smoker ROS ROS ED Constitutional Constitutional ED: Denies chills, fever(s), subjective or sweats Eyes Eyes: Reports blurry vision bilateral (For the past couple of weeks.) and other; Denies change in vision or diplopia ENT ENT ED: Denies ear pain, rhinorrhea or sore throat Cardiovascular Cardiovascular: Denies chest pain, orthopnea, palpitations or racing heartbeat Respiratory/Chest Respiratory/Chest: Denies cough, dyspnea, dyspnea on exertion or orthopnea Gastrointestinal Gastrointestinal: Denies abdominal pain, nausea or vomiting Genitourinary Genitourinary ED: Denies dysuria, hematuria or urinary frequency Musculoskeletal Musculoskeletal: Denies arthralgias, back pain or myalgias Integumentary Denies rash Neurologic Neurologic: Denies headache(s) or paresthesias Psychiatric Psychiatric: Denies anxiety or depression Endocrine Endocrinology: Reports polydipsia, polyphagia and polyuria Hematologic/Lymphatic Hematologic/Lymphatic : Reports systems reviewed and no addt'l complaints, except as documented EXAM Physical Exam Const Vital Signs: 07/20/24 15:06 07/20/24 15:44 07/20/24 17:05 Temperature 97.2 F L Temperature Source Temporal Pulse Rate 92 80 Respiratory Rate 18 19 H Respiratory Effort Normal Non-Labored Respiratory Pattern Normal Blood Pressure 165/104 H 155/99 H Blood Pressure Mean 124 117 Pulse Ox 100 96 Oxygen Delivery Method Room Air Room Air 07/20/24 18:00 07/20/24 19:00 07/20/24 19:58 Temperature 97.9 F Temperature Source Pulse Rate 87 79 79 Respiratory Rate 16 12 12 Respiratory Effort Respiratory Pattern Blood Pressure 177/108 H 147/102 H 147/102 H Blood Pressure Mean 126 115 117 Pulse Ox 96 94 94 Oxygen Delivery Method MDM MDM MDM Narrative Medical decision making narrative: This is a duplicate chart. Please combine with medical record that was completed earlier. Lab Data Attestation: I reviewed the patient's lab results. Lab results narrative: Blood sugar is elevated at 474 with a normal CO2 anion gap. CBC is unremarkable. Labs: Laboratory Results - last 24 hr 07/20/24 07/20/24 07/20/24 16:17 16:17 16:17 WBC 6.6 RBC 5.43 Hgb 16.7 H Hct 46.1 MCV 84.9 MCH 30.8 MCHC 36.2 H RDW Std Deviation 37.6 RDW Coeff of Monik 12.5 Plt Count 207 MPV 9.1 Immature Gran % (Auto) 0.300 Neut % (Auto) 68.7 Lymph % (Auto) 22.5 [place] % (Auto) 6.8 Eos % (Auto) 1.4 Baso % (Auto) 0.3 Absolute Neuts (auto) 4.5 Absolute Lymphs (auto) 1.49 Nucleated RBC % 0 Sodium 137 Cancelled Potassium 3.8 Cancelled Chloride 102 Carbon Dioxide Anion Gap BUN Creatinine Estim Creat Clear Calc Est GFR (MDRD) Af Amer Est GFR (MDRD) Non-Af BUN/Creatinine Ratio Glucose Calcium Urine Color Urine Clarity Urine pH Ur Specific [place] Urine Protein Urine Glucose (UA) Urine Ketones Urine Occult Blood Urine Nitrite Urine Bilirubin Urine Urobilinogen Ur Leukocyte Esterase Urine RBC Urine WBC Ur Squamous Epith Cells Urine Bacteria Urine Mucus POC Glucose 07/20/24 07/20/24 07/20/24 16:17 16:17 16:17 WBC RBC Hgb Hct MCV MCH MCHC RDW Std Deviation RDW Coeff of Monik Plt Count MPV Immature Gran % (Auto) Neut % (Auto) Lymph % (Auto) [place] % (Auto) Eos % (Auto) Baso % (Auto) Absolute Neuts (auto) Absolute Lymphs (auto) Nucleated RBC % Sodium Potassium Chloride Cancelled Carbon Dioxide 29.0 Cancelled Anion Gap 6 Cancelled BUN 17 Creatinine Estim Creat Clear Calc Est GFR (MDRD) Af Amer Est GFR (MDRD) Non-Af BUN/Creatinine Ratio Glucose Calcium Urine Color Urine Clarity Urine pH Ur Specific [place] Urine Protein Urine Glucose ( (more content not included)... Normal [facility] Emergency Department Summary [facility] Medical Records Department [address] [place] [address] Emergency Department Summary 07/20/24 MR#: [id number] Acct: [id number] Name: ERICK TYSON Rep #: [id number] : 1955 69 From: Gilbert Thompson MD PCP: Care Physician,No Primary Status:REG ER Location: ED HPI History of Present Illness Chief Complaint: Hyperglycemia Detail of Chief Complaint: Blood sugar greater than 500 Informant: patient and spouse/S.O. Onset/Context/Timing Onset: - (Reading done at [facility] main [facility] office, Dr. Weaver) Context: Gradual Onset Timing: Continuous Quality: Patient with symptoms of hyperglycemia for the past several weeks Location: Endocrine Current Severity: Moderate Maximum Severity: Moderate Worsened by: New onset diabetes Relieved by: Not applicable Associated Symptoms Associated Symptoms: Bilateral blurred vision, polyuria, polydipsia, nocturia Narrative Narrative: Patient is a 69-year-old male. He has no significant past medical history. He is on no medication. He went to the doctor's office because of several weeks of bilateral blurred vision. His ocular exam was unremarkable. Blood sugar was greater than 500. He denies fever, chills night sweats. He denies cardiac respiratory symptoms. He denies GI symptoms. He denies skin lesions. He denies paresthesia, anesthesia medics upper lower extremity. He denies pain in his feet. He denies orthostatic symptoms. Does endorse thirst and dry mouth. Prior similar symptoms: No Recent Illness/Hospitalizati on: No PFSH PFSH Medical History Cataract Home Medications ???Medication ???Instructions ???Recorded ???Last Taken ???Type NK 07/20/24 Unknown History metformin 500 mg tablet 500 mg PO BID #60 tabs 07/20/24 Unknown Rx Allergy/AdvReac Type Severity Reaction Status Date / Time No Known Allergies Allergy Verified 07/20/24 15:06 Social History (Updated 07/20/24 @ 17:[address] Gilbert Thompson MD) household members: spouse Smoking Status: Never smoker ROS ROS ED Constitutional Constitutional ED: Denies chills, fever(s), subjective or sweats Eyes Eyes: Reports blurry vision bilateral; Denies change in vision or diplopia ENT ENT ED: Denies ear pain, rhinorrhea or sore throat Cardiovascular Cardiovascular: Denies chest pain, orthopnea or palpitations Respiratory/Chest Respiratory/Chest: Denies cough, dyspnea, dyspnea on exertion or orthopnea Gastrointestinal Gastrointestinal: Denies abdominal pain, nausea or vomiting Genitourinary Genitourinary ED: Reports urinary frequency; Denies dysuria or hematuria Musculoskeletal Musculoskeletal: Denies arthralgias, back pain or myalgias Integumentary Denies rash Neurologic Neurologic: Denies headache(s) Endocrine Endocrinology: Reports polydipsia, polyphagia and polyuria; Denies cold intolerance Hematologic/Lymphatic Hematologic/Lymphatic : Reports systems reviewed and no addt'l complaints, except as documented EXAM Physical Exam Const Vital Signs: 07/20/24 15:06 07/20/24 15:44 07/20/24 17:05 Temperature 97.2 F L Temperature Source Temporal Pulse Rate 92 80 Respiratory Rate 18 19 H Respiratory Effort Normal Non-Labored Respiratory Pattern Normal Blood Pressure 165/104 H 155/99 H Blood Pressure Mean 124 117 Pulse Ox 100 96 Oxygen Delivery Method Room Air Room Air 07/20/24 18:00 07/20/24 19:00 Temperature Temperature Source Pulse Rate 87 79 Respiratory Rate 16 12 Respiratory Effort Respiratory Pattern Blood Pressure 177/108 H 147/102 H Blood Pressure Mean 126 115 Pulse Ox 96 94 Oxygen Delivery Method Positive well nourished and well developed Constitutional Narrative: Vital signs are mycophenolate blood pressure. Patient has not seen a doctor in years. General Appearance ED: well developed; Negative for pallor HEENT Reports dry mucous membranes HEENT Narrative: Head is atraumatic no cephalic. Ears normal. Nares patent. Posterior pharynx is normal. Mouth ED: Yes dry mucous membranes Mouth: dry mucous membranes Eyes PERRL and EOMs intact bilaterally General Eye ED: Negative for pale conjunctiva or scleral icterus Neck no lymphadenopathy, supple and no JVD Resp normal respiratory effort and clear to auscultation bilaterally Cardio regular rate, regular rhythm, S1 normal heart sound, S2 normal heart sound and no murmurs GI normal to inspection, nondistended, normoactive bowel sounds, non-tender, non-distended and no masses; Negative for hepatosplenomegaly Back/Spine no CVA tenderness Extremity normal to inspection General Extremety ED: Negative for edema or tenderness General Extremity: Negative for edema Neuro oriented x3 and CN's II-XII intact bilaterally Sensor (more content not included)... Normal [facility] Eosinophil percentageOrdered By: Gilbertselin Thompson on 07-20-2024 Eosinophils/100 WBC (Bld) 1.4 % 0-5 [facility] Epithelial cells.squamous LM Ql (Urine sed)Ordered By: Gilbertselin Thompson on 07-20-2024 Epithelial cells.squamous LM.HPF (Urine sed) [#/Area] 0 /[HPF] 0-5 [facility] Erythrocyte distribution wid th (RBC) [Ratio]Ordered By: Gilbertselin Thompson on 07-20-2024 Erythrocyte distribution width (RBC) [Entitic vol] 37.6 fL 35.1-43.9 [facility] Erythrocyte distribution wid th ratioOrdered By: Gilbertselin Thompson on 07-20-2024 Erythrocyte distribution width (RBC) [Ratio] 12.5 % 11.6-14.6 [facility] Estimated glomerular filtrat ion rate (GFR) AmericanOrdered By: Gilbert Thompson on 07-20-2024 Estimated GFR (MDRD) Amer 84 mL/min >60 [facility] Comment on above: GFR Calc Estimation of creatinine immanuel aranceOrdered By: Gilbert Thompson on 07-20-2024 Estimated Creatinine Clearance Calc 74.43 ml/min [facility] Glomerular filtration rate ( GFR) estimationOrdered By: Gilbert Thompson on 07-20-2024 Estimated GFR (MDRD) Non-Af Amer 69 mL/min >60 [facility] Comment on above: Non- GFR Calc Glucose Ql (U)Ordered By: Vanita Thompson on 07-20-2024 Glucose (U) [Mass/Vol] 1000 mg/dL High Normal [facility] Glucose measurementOrdered B y: Gilbert Thompson on 07-20-2024 Glucose [Mass/Vol] 474 mg/dL High 74-[address] [facility] Comment on above: Critical Result(s) C alled at: 17:22:04 07/20/2024 by: HAFSA RAE TO LEONARDA HICKS. Results read back by same.Glucose result greater than or equal to 200 mg/dLsuggests DIABETES MELLITUS per A.D.A. criteria. [facility] deOrdered By: Gilbert Thompson on 07-20-2024 Bedside Glucose (Misc Panel) 483 mg/dL High 74-106 [facility] Comment on above: Dr Marcelino Sharif NAGEMENT OF PATIENT CARE PER NURSING PROTOCOL Hematocrit Auto (Bld) [Volum e fraction]Ordered By: Gilbert Thompson on 07-20-2024 Hematocrit (Bld) [Volume fraction] 46.1 % 40-54 [facility] Hemoglobin measurementOrdere d By: Gilbert Thompson on 07-20-2024 Hemoglobin (Bld) [Mass/Vol] 16.7 g/dL High 13.0-16.5 [facility] Immature granulocytes/100 WB C Auto (Bld)Ordered By: Gilbert Thompson on 07-20-2024 Immature granulocytes/100 WBC (Bld) 0.300 % 0.0-0.9 [facility] Comment on above: IG% - Immature Granu locytes (promyelocytes, myelocytes and metamyelocytes) > 1% indicates that a LEFT SHIFT is Present. Ketones Test strip Ql (U)Ord ered By: Gilbetr Thompson on 07-20-2024 Ketones Ql (U) 5 mg/dl High Negative [facility] Lymphocytes Auto (Unsp spec) [#/Vol]Ordered By: Gilbert Thompson on 07-20-2024 Lymphocytes (Bld) [#/Vol] 1.49 10*3/uL 0.83-4.51 [facility] Lymphocytes/100 WBC Auto (Un sp spec)Ordered By: Gilbert Thompson on 07-20-2024 Lymphocytes/100 WBC (Bld) 22.5 % 19-41 [facility] MCV (mean corpuscular volume ) determinationOrdered By: Gilbert Thompson on 07-20-2024 MCV (RBC) [Entitic vol] 84.9 fL 80-94 [facility] Mean corpuscular hemoglobin (MCH) determinationOrdered By: Gilbert Thompson on 07-20-2024 MCH (RBC) [Entitic mass] 30.8 pg 27.0-32.0 [facility] Mean corpuscular hemoglobin concentration (MCHC) determinationOrdered By: Gilbert Thompson on 07-20-2024 MCHC (RBC) [Mass/Vol] 36.2 g/dL High 32-36 [facility] Mean platelet volume determi nationOrdered By: Gilbert Thompson on 07-20-2024 Platelet mean volume (Bld) [Entitic vol] 9.1 fL 6.2-12.0 [facility] Microscopic analysis of urin e for red blood cells (RBC)Ordered By: Gilbert Thompson on 07-20-2024 Urine RBC 0 SEEN /hpf 0-5 [facility] Monocyte percentageOrdered B y: Gilbert Thompson on 07-20-2024 Monocytes/100 WBC (Bld) 6.8 % 0-10 [facility] Mucus LM Ql (Urine sed)Order ed By: Gilbert Thompson on 07-20-2024 Mucus Ql (Urine sed) 0 SEEN /hpf [facility] Neutrophil percentageOrdered By: Gilbert Thompson on 07-20-2024 Neutrophils/100 WBC (Bld) 68.7 % 47-70 [facility] Nitrite Test strip Ql (U)Ord ered By: Gilbert Thompson on 07-20-2024 Nitrite Ql (U) Negative Negative [facility] Nucleated red blood cell per centageOrdered By: Gilbert Thompson on 07-20-2024 Nucleated RBC/100 WBC (Bld) [Ratio] 0 % 0-5 [facility] Platelet countOrdered By: Vanita selin Thompson on 07-20-2024 Platelets (Bld) [#/Vol] 207 10*3/uL 150-450 [facility] Potassium measurementOrdered By: Gilbert Thompson on 07-20-2024 Potassium [Moles/Vol] 3.8 mmol/L 3.5-5.1 [facility] Protein Test strip Ql (U)Ord ered By: Gilbert Thompson on 07-20-2024 Protein Ql (U) Negative Negative [facility] RBC Auto (Bld) [#/Vol]Ordere d By: Gilbert Thompson on 07-20-2024 RBC (Bld) [#/Vol] 5.43 10*6/uL 4.6-6.2 [facility] Serum anion gap measurementO rdered By: Gilbert Thompson on 07-20-2024 Anion gap [Moles/Vol] 6 mmol/L 5-15 [facility] Serum or plasma calcium jenny urement (mass/volume)Ordered By: Gilbert Thompson on 07-20-2024 Calcium [Mass/Vol] 9.5 mg/dL 8.5-10.[address] [facility] Serum or plasma creatinine m easurement (mass/volume)Ordered By: Gilbert Thompson on 07-20-2024 Creatinine [Mass/Vol] 1.12 mg/dL 0.70-1.30 [facility] Comment on above: The validity of the calculated GFR & GFRAA in patients over 70 years has not been determined. Clinical correlation is essential. Serum or plasma urea nitroge n measurement (mass/volume)Ordered By: Gilbert Thompson on 07-20-2024 Urea nitrogen [Mass/Vol] 17 mg/dL 7-18 [facility] Sodium levelOrdered By: Gilbert Thompson on 07-20-2024 Sodium [Moles/Vol] 137 mmol/L 136-[address] [facility] Urinalysis, Completeon 07-20 WBC 0-5 SEEN Normal 0-5 [facility] Comment on above: Order Comment: CLEAN CATCH Performed By: #### L 400.0001 ####[facility] [address] [place], [address] BACTERIA 0 SEEN Normal None Seen [facility] Comment on above: Order Comment: CLEAN CATCH Performed By: #### L 400.0001 ####[facility] [address] [place], [address] EPI,SQUAMOUS 0 SEEN Normal 0-5 [facility] Comment on above: Order Comment: CLEAN CATCH Performed By: #### L 400.0001 ####[facility] [address] [place], [address] Mucus Ql (Urine sed) 0 SEEN Normal [facility] Comment on above: Order Comment: CLEAN CATCH Performed By: #### L 400.0001 ####[facility] [address] [place], [address] RBC 0 SEEN Normal 0-5 [facility] Comment on above: Order Comment: CLEAN CATCH Performed By: #### L 400.0001 ####[facility] [address] [place], [address] Urine blood detectionOrdered By: Gilbert Thompson on 07-20-2024 Urine Occult Blood Negative Negative [facility] Urine clarityOrdered By: Gilbert Thompson on 07-20-2024 Clarity (U) Clear Clear [facility] Urine color determinationOrd ered By: Gilbert Thompson on 07-20-2024 Color (U) Yellow Yellow [facility] Urine leukocyte esterase det ection by dipstickOrdered By: Gilbert Thompson on 07-20-2024 Leukocyte esterase Test strip Ql (U) Negative Negative [facility] Urine pHOrdered By: Gilbert payton on 07-20-2024 pH (U) 6.0 [pH] 5.0 - 8.0 [facility] Urine sediment bacteria coun t by microscopy (number/high power field)Ordered By: Gilbert Thompson on 07-20-2024 Bacteria LM.HPF (Urine sed) [#/Area] 0 /[HPF] None Seen [facility] Urine specific gravity measu rementOrdered By: Gilbertselin Thompson on 07-20-2024 Specific gravity (U) [Rel density] 1.010 1.002-1.030 [facility] Urobilinogen Ql (U)Ordered B y: Gilbert Thompson on 07-20-2024 Urine Urobilinogen Normal mg/dl Normal [facility] White blood cell (WBC) count Ordered By: Gilbert Thompson on 07-20-2024 WBC (Bld) [#/Vol] 6.6 10*3/uL 4.4-11.[address] [facility] White blood cell countOrdere d By: Gilbert Thompson on 07-20-2024 Urine WBC 0-5 SEEN /hpf 0-5 [facility] Vital Signs Date Time Vital Sign Value Performing Clinician Faci lity 01-12-2025 14:08-0400 Body temperature 97 [degF] Dr. Belle Monk MD Work Phone: [facility] 01-12-2025 14:08-0400 Diastolic blood pressure 88 mm[Hg] Dr. Belle Monk MD Work Phone: [facility] 01-12-2025 14:08-0400 Heart rate 76 /min Dr. Belle Monk MD Work Phone: [facility] 01-12-2025 14:08-0400 Respiratory rate 20 /min Dr. Belle Monk MD Work Phone: [facility] 01-12-2025 14:08-0400 SaO2% (BldA) [Mass fraction] 99 % Dr. Belle Monk MD Work Phone: [facility] 01-12-2025 14:08-0400 Systolic blood pressure 155 mm[Hg] Dr. Belle Monk MD Work Phone: [facility] 01-12-2025 09:12-0400 Body height 180.[address] Belle Monk MD Work Phone: [facility] 01-12-2025 09:12-0400 Body mass index (BMI) [Ratio] 25.7 kg/m2 Dr. Belle Monk MD Work Phone: [facility] 01-12-2025 09:12-0400 Body weight 83.[address] Belle Monk MD Work Phone: [facility] 01-12-2025 08:53-0400 Body height 180.[address] Belle Monk MD Work Phone: [facility] 01-12-2025 08:53-0400 Body mass index (BMI) [Ratio] 25.7 kg/m2 Dr. Belle Monk MD Work Phone: [facility] 01-12-2025 08:53-0400 Body temperature 97.6 [degF] Dr. Belle Monk MD Work Phone: [facility] 01-12-2025 08:53-0400 Body weight 83.[address] Belle Monk MD Work Phone: [facility] 01-12-2025 08:53-0400 Diastolic blood pressure 89 mm[Hg] Dr. Belle Monk MD Work Phone: [facility] 01-12-2025 08:53-0400 Heart rate 81 /min Dr. Belle Monk MD Work Phone: [facility] 01-12-2025 08:53-0400 Respiratory rate 18 /min Dr. Belle Monk MD Work Phone: [facility] 01-12-2025 08:53-0400 SaO2% (BldA) [Mass fraction] 98 % Dr. Belle Monk MD Work Phone: [facility] 01-12-2025 08:53-0400 Systolic blood pressure 151 mm[Hg] Dr. Belle Monk MD Work Phone: [facility] 07-20-2024 19:58-0500 Body temperature 97.9 [degF] No Primary Care Physician [facility] 07-20-2024 19:58-0500 Diastolic blood pressure 102 mm[Hg] No Primary Care Physician [facility] 07-20-2024 19:58-0500 Heart rate 79 /min No Primary Care Physician [facility] 07-20-2024 19:58-0500 Respiratory rate 12 /min No Primary Care Physician [facility] 07-20-2024 19:58-0500 SaO2% (BldA) [Mass fraction] 94 % No Primary Care Physician [facility] 07-20-2024 19:58-0500 Systolic blood pressure 147 mm[Hg] No Primary Care Physician [facility] 07-20-2024 15:06-0500 Body height 180.34 cm No Primary Care Physician [facility] 07-20-2024 15:06-0500 Body mass index (BMI) [Ratio] 30.2 kg/m2 No Primary Care Physician [facility] 07-20-2024 15:06-0500 Body weight 98.4 kg No Primary Care Physician [facility] Encounters Encounter Date Encounter Type Care Provider Facility Start: 01-12-2025 Non-patient / Non-visit Dr. Matilde ayers MD -[facility] Work Phone: Start: 01-12-2025 Evaluation and management of inpatient Dr. Matilde Henry MD -[facility] Work Phone: Start: 01-12-2025 End: 01-12-2025 ambulatory Belle Monk Facility:[facility] Start: 01-12-2025 End: 01-12-[address] Freeman Stauffer MD -[facility] Work Phone: Start: 01-05-2025 End: 01-05-[address] Belle Monk MD Work Phone: [facility] Work Phone: Start: 01-05-2025 End: 01-05-[address] Belle Monk MD -Ultrasound [facility] Work Phone: Start: 01-04-2025 End: 01-05-[address] Belle Monk MD Work Phone: [facility] Work Phone: Start: 01-04-2025 End: 01-04-[address] Belle Monk MD -Laboratory [place] [facility] Start: 01-04-2025 End: 01-04-2025 ambulatory Belle Monk Facility:[facility] Start: 10-22-2024 End: 10-22-2024 ambulatory No Primary Care Physician [facility] Work Phone: Start: 10-22-2024 End: 10-22-[address] Belle Monk MD -Laboratory, [place] Work Phone: Start: 10-22-2024 End: 10-22-2024 ambulatory Belle Monk Facility:[facility] Start: 07-20-2024 End: 07-20-2024 Emergency department patient visit Dr. Gilbert Thompson MD -Emergency Department Work Phone: Procedures Date Procedure Procedure Detail Performing Clinician Start: 01-12-2025 Computed tomography of abdomen and pelvis with intravenous contrast Dr. Belle Monk MD Work Phone: Start: 01-12-2025 Urnls dip stick/tabl et reagent auto microscopy Dr. Belle Monk MD Work Phone: Start: 01-12-[address] Belle Monk MD Work Phone: Start: 01-05-[address] Belle Monk MD Work Phone: Plan of Treatment Date Care Activity Detail Author Start: 01-12-2025 Admission procedure [facility] Start: 01-12-2025 Verification routine [facility] Start: 01-12-2025 Hospital admission, emergency, from emergency room, medical nature [facility] Start: 01-12-2025 [facility] Start: 07-20-[address] [facility] [address] Abdomen and Pelvi s W contrast IV [facility] Hepatic function panel [facility] Patient Education ED Diabetes- [place] ED Hypertension, To Be Confirmed ED Hyperglycemia New Poss Diabetes [facility] Work Phone: Patient referral [facility] Work Phone: Payers Date Payer Category Payer Medicare [id number] 2024 Medicare [id number] 2024 Self-pay Unknown [id number] Unknown [id number] Unknown [id number] Unknown [id number] Unknown [id number] Social History Date Type Detail Facility Start: 07-20-2024 End: 01-12-2025 Tobacco smoking status NHIS Never smoked tobacco (finding) [facility] Start: 10-25-2024 Sex Male (finding) [facility] Start: 1955 Sex Assigned At Male [facility] Mental Status Date Assessment Result Facility 07-20-2024 Cognitive function Level Of Cons ciousness Awake;Alert;Appropriate;Follow s Commands [facility] Work Phone: Discharge summary 01-12-2025 Note Date & Type Note Facility 01-12-2025 Discharge summary Note Date/Time January 12, 2025 1:20pm [facility] Medical Records Department [address] [place] [address] Emergency Department Summary 01/12/25 MR#: [id number] Acct: [id number] Name: ERICK TYSON Rep #:[id number] : 1955 69 From: Jeremy Lockett MD PCP: Dr. Belle Monk MD Status:REG ER Location: ED HPI HPI - GI History of Present Illness Chief Complaint: Abd Pain Narrative Narrative: 69-year-old male past medical history of diabetes recently switched to Januvia from metformin presents with 2-1/2 weeks of jaundice and right upper quadrant pain. He is nauseated but has not vomited. No fevers or chills. He states hissymptoms began approximately 2-1/2 weeks ago. Last week he went to his primary care provider and had an ultrasound performed. He went to Dr. Stauffer the surgeon today for referral for gallbladder surgery. In discussion with Dr. Stauffer, he was sent in for CT imaging and repeat laboratory work. Patient did have reportedly an ultrasound which showed no stones in the gallbladder but it was distended as well as some of the bile ducts. Patient reports continued nausea and decreased appetite as well as quintin colored stools and jaundice. [facility] Medical History Umbilical hernia Gallbladder problem Nausea RUQ pain Cataract Home Medications ?Medication ?Instructions ?Recorded ?Last Taken ?Type sitagliptin phosphate 25 mg tablet 25 mg PO QHS 01/11/25 History (Januvia) Allergy/AdvReac Type Severity Reaction Status Date / Time No Known Allergies Allergy Verified 01/12/25 08:55 Surgical History H/O right inguinal hernia repair History of appendectomy Social History household members: spouse Smoking Status: Never smoker ROS ROS ED ROS Narrative Review of systems positive for scleral icterus, jaundice, right upper quad pain with nausea but no vomiting. No fevers or chills. Positive quintin colored stools. Decreased appetite. Denies other symptoms. No exacerbating or alleviating factors. EXAM Physical Exam Narrative Exam Narrative: Afebrile. Vital signs noted. Nontoxic-appearing. Cardiovascular examination reveals a regular rate and rhythm. Lungs are clear to auscultation bilaterally. Abdomen is soft with tenderness to palpation right upper quadrant. HEENT examination does show scleral icterus. Neck soft and supple without stridor or meningismus. Skin examination does show jaundice. Neurological examination nonfocal, nonlateralizing. No clonus. Const Vital Signs: 01/12/25 09:12 01/12/25 11:12 01/12/25 12:10 Temperature 98.1 F Temperature Source Temporal Pulse Rate 82 72 78 Respiratory Rate 18 14 14 Blood Pressure 143/84 H 150/79 H 148/96 H Blood Pressure Mean 103 102 113 Pulse Ox 100 100 100 Oxygen Delivery Method Room Air Room Air Room Air MDM MDM MDM Narrative Medical decision making narrative: Concern is for biliary obstruction versus pancreatitis versus gallstone pancreatitis versus liver mass. I reviewed his outpatient laboratory work and prior labs, and he did have elevated bilirubin of 6. Today's laboratory work was reviewed and he is slightly neutropenic at 4.0 with hemoglobin normal at 13.9, platelet count 239. Chloride slightly low at 97 with normal sodium of 133, BUN of 22 and creatinine 0.81. Glucose elevated at 374 consistent with hisdiabetes but anion gap normal at 13 so I doubt diabetic ketoacidosis. He has elevated LFTs with an AST of 51 and ALT of 112, alk phos 292, total bili 12.5. Lipase 28. Urinalysis negative for infection with 0 WBCs but he does have elevated bilirubin as well. I reviewed the radiology report of the CT of the abdomen pelvis. Abdomen/Pelvis CT 01/12/25 10:24 IMPRESSION: There is a hypervascular lesion in the superior aspect of the right hepatic lobemeasuring 0.8 cm, axial image 7/136. There is a circumscribed low-density lesion in the left hepatic lobe measuring 1.6 cm, image 29/136, Hounsfield units = 41. Further evaluation is indicated which could include three-phase contrast CT or MRI examination. There is moderate intrahepatic biliary dilation. A retrograde study is indicated. The proximal common bile duct is dilated to 2.5 cm. The distal common bile ductmeasures 0.7 cm at the pancreatic head. Pancreatic duct is dilated and measures 0.6 cm in the proximal body, 0.5 cm in the distal body, and 0.5 cm in the tail. The gallbladder is distended to 11 cm in length. Consider hepatobiliary scan for further characterization. The spleen is enlarged at 15 cm in length. There is a 2.6 cm cyst in the midpole of the left kidney. There is a 1.1 cm stone in the right bladder base. There is a 2.5 cm uncomplicated fat containing umbilical hernia. Will discuss patient with Dr. Stauffer, and Dr. Webber, then with the hospitalist for admission for further testing of his biliary obstruction. Of note, the patient did inform me that his mother and his sister both have historyof Gilbert's disease. I discussed the patient with Dr. Stauffer who was initially suggesting transfer, but in his discussion with Dr. Webber, he states that patient does require further workup but he would like the hospitalist to admit him. I discussed patient with Dr. Matilde Henry for admission to the general medical floor. Patient is in stable condition. History & Record Review Discussion w/independent historian: Patient Additional record(s) reviewed:: Prior labs Lab Data Attestation: I reviewed the patient's lab results. Labs: Laboratory Results - last 24 hr 01/12/25 01/12/25 09:45 10:10 WBC 4.0 L RBC 4.70 Hgb 13.9 Hct 40.2 MCV 85.5 MCH 29.6 MCHC 34.6 RDW Std Deviation 43.8 RDW Coeff of Monik 13.9 Plt Count 239 MPV 10.1 Immature Gran % (Auto) 0.500 Neut % (Auto) 72.7 H Lymph % (Auto) 15.7 L [place] % (Auto) 9.7 Eos % (Auto) 1.2 Baso % (Auto) 0.2 Absolute Neuts (auto) 2.9 Absolute Lymphs (auto) 0.63 L Nucleated RBC % 0 Sodium 133 Potassium 4.0 Chloride 97 L Carbon Dioxide 23.0 Anion Gap 13 BUN 22 H Creatinine 0.81 Estim Creat Clear Calc 91.67 Est GFR (MDRD) Non-Af 96 BUN/Creatinine Ratio 27.8 H Glucose 374 H Calcium 9.2 Total Bilirubin 12.50 H AST 51 H ALT 112 H Alkaline Phosphatase 292 H Total Protein 6.8 Albumin 3.9 Globulin 2.9 Albumin/Globulin Ratio 1.3 Lipase 28 Urine Color Berna Urine Clarity Clear Urine pH 6.0 Ur Specific [place] 1.015 Urine Protein 30 H Urine Glucose (UA) 1000 H Urine Ketones 5 H Urine Occult Blood 250 H Urine Nitrite Negative Urine Bilirubin 3 H Urine Urobilinogen 4 H Ur Leukocyte Esterase 25 H Urine RBC 5-10 SEEN Urine WBC 0 SEEN Ur Squamous Epith Cells 0-5 SEEN Urine Bacteria 2+ Urine Mucus RARE Radiography Diagnostic Testing: Clinical Impression(s) from Imaging Studies Abdomen/Pelvis CT 01/12/25 10:24 IMPRESSION: There is a hypervascular lesion in the superior aspect of the right hepatic lobemeasuring 0.8 cm, axial image 7/136. There is a circumscribed low-density lesion in the left hepatic lobe measuring 1.6 cm, image 29/136, Hounsfield units = 41. Further evaluation is indicated which could include three-phase contrast CT or MRI examination. There is moderate intrahepatic biliary dilation. A retrograde study is indicated. The proximal common bile duct is dilated to 2.5 cm. The distal common bile ductmeasures 0.7 cm at the pancreatic head. Pancreatic duct is dilated and measures 0.6 cm in the proximal body, 0.5 cm in the distal body, and 0.5 cm in the tail. The gallbladder is distended to 11 cm in length. Consider hepatobiliary scan for further characterization. The spleen is enlarged at 15 cm in length. There is a 2.6 cm cyst in the midpole of the left kidney. There is a 1.1 cm stone in the right bladder base. There is a 2.5 cm uncomplicated fat containing umbilical hernia. Reading Location: [facility] Management Discussion w/another healthcare provider: Hospitalist and Director [employer] Discharge Plan Dx/Rx/DC Orders Clinical Impression: Jaundice, RUQ pain, Dilated bile duct, Dilated pancreatic duct Disposition Disposition: Acute Care Hospital [facility] What to do if you have Problems For any increased pain, shortness of breath, bleeding, nausea or vomiting, chestpain, or any unexpected problems, contact your Primary Care Provider. Call [facility] ([phone]) or report to the closest Emergency Room. Call 911 if necessary. 01/12/25 1320 <Electronically signed by Jeremy Lockett MD> Cosigner Signature (if applicable): CC: Dr. Belle Monk MD ~ Signed [facility] Work Phone: History and physical note 01-12-2025 Note Date & Type Note Facility 01-12-2025 History and physi adriana note [facility] Discharge summary 01-12-2025 Note Date & Type Note Facility 01-12-2025 Discharge summary [facility] Radiology Diagnostic study note 01-12-2025 Note Date & Type Note Facility 01-12-2025 Radiology Diagnostic study note [facility] Imaging Services [address] [place] [address] Abdomen/Pelvis W IV Cont ONLY MR#: [id number] Acct: [id number] Name: ERICK TYSON Rep #: [id number] : 1955 M 69 From: Judah De Leon MD PCP: Dr. Belle Monk MD Status: REG ER Study:Abdomen/Pelvis W IV Cont ONLY Date of E xam: 01/12/25 Exam# [id number] Ordering Dr: Jeremy Lockett MD PROCEDURE: ABDOMEN/PELVIS W IV CONT ONLY 01/12/2025 REASON FOR EXAM: JAUNDICE, RIGHT UPPER QUADRANT ABDOMINAL PAIN TECHNIQUE: ABDOMEN/PELVIS W IV CONT ONLY Coronal and Sagittal reconstruction series were provided. CONTRAST: 99 cc Isovue-300 One or more dose reduction techniques were used (e.g., Automated exposure control, adjustment of the mA and/or kV according to patient size, use of iterative reconstruction technique. RADIATION DOSE SUMMARY: DLP: 795.28 mGycm COMPARISON: January 05, 2025 ultrasound FINDINGS: Lung bases: Clear Liver: There is a hypervascular lesion in the superior aspect of the right hepatic lobe measuring 0.8 cm, axial image 7/136. There is a circumscribed low-density lesion in the left hepatic lobe measuring 1.6 cm, image 29/136, Hounsfield units = 41. There is moderate intrahepatic biliary dilation. The proximal common bile duct is dilated to 2.5 cm. The distal common bile duct measures 0.7 cm at the pancreatic head. Pancreatic duct is dilated and measures 0.6 cm in the proximal body, 0.5 cm in the distal body, and 0.5 cm in the tail. Gallbladder: The gallbladder is distended to 11 cm in length. There is no visible gallbladder wall thickening or stone. There is no visible pericholecystic inflammation or fluid. Spleen: The spleen is enlarged at 15 cm in length. Pancreas: There is no focal pancreatic mass or cyst. There is no peripancreaticinflammation. Adrenals: Unremarkable Kidneys: There is a 2.6 cm cyst in the midpole of the left kidney. Bladder: There is a 1.1 cm stone in the right bladder base. Reproductive Organs: Prostate is heterogeneously enlarged with calcifications noted. Bowel: There is a moderate stool load. There are diverticuli in the sigmoid colon with no visible acute diverticulitis. The small bowel loops are not distended. Appendix: Not demonstrated Lymph nodes: There is no pathologic adenopathy by size criteria. Vasculature: Atherosclerotic calcifications are noted. Peritoneum / Retroperitoneum: There is a 2.5 cm uncomplicated fat containing umbilical hernia. Bones: Is no acute bony abnormality. CT/Abdomen/Pelvis W IV Cont ONLY IMPRESSION: There is a hypervascular lesion in the superior aspect of the right hepatic lobemeasuring 0.8 cm, axial image 7/136. There is a circumscribed low-density lesion in the left hepatic lobe measuring 1.6 cm, image 29/136, Hounsfield units = 41. Further evaluation is indicated which could include three-phase contrast CT or MRI examination. There is moderate intrahepatic biliary dilation. A retrograde study is indicated. The proximal common bile duct is dilated to 2.5 cm. The distal common bile ductmeasures 0.7 cm at the pancreatic head. Pancreatic duct is dilated and measures 0.6 cm in the proximal body, 0.5 cm in the distal body, and 0.5 cm in the tail. The gallbladder is distended to 11 cm in length. Consider hepatobiliary scan for further characterization. The spleen is enlarged at 15 cm in length. There is a 2.6 cm cyst in the midpole of the left kidney. There is a 1.1 cm stone in the right bladder base. There is a 2.5 cm uncomplicated fat containing umbilical hernia. Reading Location: [facility] CC: Dr. Jeremy Lockett MD; Dr. Belle Monk MD ~ Vasc Tech: Signed [facility] Evaluation note 01-12-2025 Note Date & Type Note Facility 01-12-2025 Evaluation note Diagnosis Onset Date Resolution Gallbladder problem acute January 12, 2025 8:39am RUQ pain acute January 12 8:39am Diabetes mellitus, type 2 acute January 12, 2025 1:33pm Dilated bile duct acute January 122024 1:33pm Dilated pancreatic duct acute J 2024 1:33pm Jaundice acute January 12 1:33pm RUQ pain acute January 12 1:33pm [facility] Work Phone: Radiology Diagnostic study note 01-05-2025 Note Date & Type Note Facility 01-05-2025 Radiology Diagnostic study note [facility] Imaging Services [address] [place] [address] Abdomen Limited MR#: [id number] Acct: [id number] Name: ERICK TYSON Rep #: [id number] : 1955 M 69 From: Jaya Quick MD PCP: Dr. Belle Monk MD Status: REG CLI Study:Abdomen Limited Date of Exam: 12/19 03/14 Exam# [id number] Ordering Dr: Casie Monk MD PROCEDURE: ABDOMEN LIMITED 01/05/2025 REASON FOR EXAM: RUQ PAIN VOMITING COMPARISON: None FINDINGS: Liver: Diffusely echogenic suggesting fatty infiltration. Hepatomegaly. The liver measures 22.1 cm. Gallbladder: Gallbladder is distended. Small amount of pericholecystic fluid. Positive sonographic Jones's sign. Gallbladder wall is not thickened. No evidence of gallstones. Common bile duct: Dilated measuring up to 13 mm. . Pancreas: Visualized portions are sonographically unremarkable. Other: Visualized portions of the right kidney are unremarkable. No right upperquadrant ascites. US/Abdomen Limited IMPRESSION: Hepatomegaly and diffuse fatty infiltration of the liver. Distended gallbladder with positive Jones's sign and small amount of pericholecystic fluid. Acalculous cholecystitis should be ruled out. Dilated common bile duct. Reading Location: [place] [address] CC: Dr. Belle Monk MD ~ Vasc Tech: Signed [facility] Evaluation note Note Date & Type Note Facility Evaluation note No assessment information availa ble [facility] Work Phone: History and physical note Note Date & Type Note Facility History and physical note Note Date/Time January 12, 2025 1:38pm [facility] Medical Records Department [address] [place] [address] H&P Exam - Hospitalist 01/12/25 1336 MR#: [id number] Acct: [id number] Name: ERICK TYSON Rep #:[id number] : 1955 69 From: Matilde Henry MD PCP: Dr. Belle Monk MD Status:REG ER Location: ED HPI - General General Date of Admission: 01/12/25 Date of Service: 01/12/25 Chief Complaint: RUQ pain, jaundice HPI Narrative ERICK TYSON, is a 69-year-old male with history of diabetes recently switched from Januvia to metformin who presented to [facility] ED 01/12/2025 with 2-1/2 weeks of jaundice and right upper quadrant pain. He has been worked up on an outpatient basis by his PCP and was found to have a bilirubin of 6 and a distended gallbladder on right upper quadrant ultrasound. He saw Dr. Stauffer with general surgery today and was still jaundiced so he sent him to the ED for a CT scan and repeat labs. Labs in the ED demonstrated total bili of 12.5, AST of 51, ALT of 112, alk phos 292. Patient afebrile, heart rate 82, blood pressure 143/84 respiratory rate 18 with pulse ox 100% on room air. Glucose 374. UA with glucose and bilirubin present. CT of the abdomen in the ED demonstrated hypervascular lesion superior aspect of right hepatic lobe and circumscribed low-density lesion in the left hepatic lobe. Moderate intrahepatic biliary dilation with common bile duct dilation of 2.5 cm and pancreatic duct dilated at 0.6 cm. Gallbladder distended to 11 cm and spleen is enlarged. General surgery with no intervention planned but GI contacted who recommended hospitalist admission and he will see in consult for further workup and management. Hospitalist contacted for admission. Patient evaluated at bedside and reports history as above with a dull right upper quadrant ache over the past couple of weeks and yellowing of his skin, his urinehas been dark and his stool is been light-colored but no diarrhea or constipation. Reports poor appetite and occasional nausea. No fevers or chills, no other new or acute complaints. [facility] Medical History (Updated 01/12/25 @ 13:[address] Matilde Henry MD) Cataract Diabetes mellitus, type 2 Gallbladder problem Nausea RUQ pain Umbilical hernia Home Medications ?Medication ?Instructions ?Recorded ?Last Taken ?Type sitagliptin phosphate 25 mg tablet 25 mg PO QHS 01/11/25 History ([place]) Allergy/AdvReac Type Severity Reaction Status Date / Time No Known Allergies Allergy Verified 01/12/25 08:55 Surgical History H/O right inguinal hernia repair History of appendectomy Social History household members: spouse Smoking Status: Never smoker ROS ROS Narrative General: Denies fever/chills HENT: Denies headache, denies stuffy nose, denies sore throat EYES: Denies changes in vision Resp: Denies cough, denies shortness of breath Cardiac: Denies chest pain GI: Right upper quadrant pain, occasional nausea, poor appetite, pale stool : Denies changes in urination Extremity: Denies swelling MSK: Denies weakness Neuro: Denies any numbness/tingling Heme: Denies any bleeding or bruising Skin: Denies rashes, does have yellowing of his skin Psychiatric: No complaints voiced Vital Signs Vital Signs Vital Signs: 01/12/25 09:12 01/12/25 11:12 01/12/25 12:10 Temperature 98.1 F Temperature Source Temporal Pulse Rate 82 72 78 Respiratory Rate 18 14 14 Blood Pressure 143/84 H 150/79 H 148/96 H Blood Pressure Mean 103 102 113 Pulse Ox 100 100 100 Oxygen Delivery Method Room Air Room Air Room Air Weight Weight: 83.506 kg Body Mass Index (BMI) 25.7 Physical Exam Narrative General: Alert, oriented, no apparent distress HEENT: Atraumatic, normocephalic Eyes: Scleral icterus, normal conjunctiva, extraocular movements grossly intact Neck: Supple Respiratory: Clear to auscultation bilaterally, normal respiratory effort Cardiovascular: Regular rate and rhythm GI: Pain in right upper quadrant without rigidity or significant guarding Extremities: No edema Musculoskeletal: Moving all extremities Neuro: No overt focal neurological deficits Skin: Does appear jaundice Psych: Cooperative Results Lab / Micro Data 01/12/25 09:45 01/12/25 09:45 Labs: Laboratory Results - last 24 hr 01/12/25 09:45: WBC 4.0 L, RBC 4.70, Hgb 13.9, Hct 40.2, MCV 85.5, MCH 29.6, MCHC 34.6, RDW Std Deviation 43.8, RDW Coeff of Monik 13.9, Plt Count 239, MPV 10.1, Immature Gran % (Auto) 0.500, Neut % (Auto) 72.7 H, Lymph % (Auto) 15.7 L,[place] % (Auto) 9.7, Eos % (Auto) 1.2, Baso % (Auto) 0.2, Absolute Neuts (auto) 2.9, Absolute Lymphs (auto) 0.63 L, Nucleated RBC % 0, Sodium 133, Potassium 4.0, Chloride 97 L, Carbon Dioxide 23.0, Anion Gap 13, BUN 22 H, Creatinine 0.81, Estim Creat Clear Calc 91.67, Est GFR (MDRD) Non-Af 96, BUN/Creatinine Ratio 27.8 H, Glucose 374 H, Calcium 9.2, Total Bilirubin 12.50 H, AST 51 H, FRM534 H, Alkaline Phosphatase 292 H, Total Protein 6.8, Albumin 3.9, Globulin 2.9,Albumin/Globulin Ratio 1.3, Lipase 28 01/12/25 10:10: Urine Color Berna, Urine Clarity Clear, Urine pH 6.0, Ur Specific [place] 1.015, Urine Protein 30 H, Urine Glucose (UA) 1000 H, Urine Ketones 5 H, Urine Occult Blood 250 H, Urine Nitrite Negative, Urine Bilirubin 3H, Urine Urobilinogen 4 H, Ur Leukocyte Esterase 25 H, Urine RBC 5-10 SEEN, Urine WBC 0 SEEN, Ur Squamous Epith Cells 0-5 SEEN, Urine Bacteria 2+, Urine Mucus RARE Imaging Radiology Impression Abdomen/Pelvis CT 01/12/25 10:24 IMPRESSION: There is a hypervascular lesion in the superior aspect of the right hepatic lobemeasuring 0.8 cm, axial image 7/136. There is a circumscribed low-density lesion in the left hepatic lobe measuring 1.6 cm, image 29/136, Hounsfield units = 41. Further evaluation is indicated which could include three-phase contrast CT or MRI examination. There is moderate intrahepatic biliary dilation. A retrograde study is indicated. The proximal common bile duct is dilated to 2.5 cm. The distal common bile ductmeasures 0.7 cm at the pancreatic head. Pancreatic duct is dilated and measures 0.6 cm in the proximal body, 0.5 cm in the distal body, and 0.5 cm in the tail. The gallbladder is distended to 11 cm in length. Consider hepatobiliary scan for further characterization. The spleen is enlarged at 15 cm in length. There is a 2.6 cm cyst in the midpole of the left kidney. There is a 1.1 cm stone in the right bladder base. There is a 2.5 cm uncomplicated fat containing umbilical hernia. [facility] Assessment & Plan Assessment/Plan (1) Jaundice: (2) Dilated bile duct: (3) Dilated pancreatic duct: (4) RUQ pain: (5) Diabetes mellitus, type 2: PLAN: Plan # Jaundice and right upper quadrant pain -CT of the abdomen in the ED demonstrated hypervascular lesion superior aspect of right hepatic lobe and circumscribed low-density lesion in the left hepatic lobe. Moderate intrahepatic biliary dilation with common bile duct dilation of 2.5 cm and pancreatic duct dilated at 0.6 cm. Gallbladder distended to 11 cm and spleen is enlarged - total bili of 12.5, AST of 51, ALT of 112, alk phos 292 - General Surgery with no intervention planned but recommended GI involvement - Reportedly GI contacted while patient in ED and recommended hospitalist admission and he will see in consult for further workup and management -Will keep n.p.o. for now while GI determining further workup - GI consult - Avoid hepatotoxic agents - Daily CMP #Type 2 diabetes mellitus -Glucose checks and sliding scale insulin -Hold home oral hypoglycemics #DVT ppx: SCDs in the event patient needs intervention Matilde Henry MD Charges/Coding Visit Charges Inpatient E&M: 15355 Init Hosp L1 01/12/25 4004 <Electronically signed by Matilde Henry MD> Cosigner Signature (if applicable): CC: Dr. Belle Monk MD; Dr. Matilde Henry MD~ Signed [facility] Work Phone: Reason for referral (narrative) Note Date & Type Note Facility Reason for referral (narrative) No reason for referral information available [facility] Work Phone: Chief Complaint and Reason for Visit Chief Complaint Admit Date HYPERGLYCEMIA July 20, 2024 3:05pm FASTING October 22, 2024 7:28 am Chief Complaint Admit Date October 22, 2024 7:28 am RUQ ABD PAIN, VOMITING January 05, 2025 9 :58am Chief Complaint Admit Date FASTING October 22, 2024 7:28 am RUQ ABD PAIN, VOMITING January 05, 2025 9 :58am RUQ PAIN POSSIBLE GALLBLADDER January 12, 2025 8:39am Chief Complaint Admit Date FASTING October 22, 2024 7:28 am RUQ ABD PAIN, VOMITING January 05, 2025 9 :58am RUQ PAIN POSSIBLE GALLBLADDER January 12, 2025 8:39am RIGHT UPPER QUADRANT PAIN & JAUNDICE Dec 1:33pm abd pain January 12, 2025 1:36 pm Reason for Visit Admit Date Gallbladder problem January 12, 2025 8:39 am RUQ pain January 12, 2025 8:39 am Diabetes mellitus, type 2 January 12 1:33pm Dilated bile duct January 12, 2025 1:33 pm Dilated pancreatic duct January 12, 2025 1:33pm Jaundice January 12, 2025 1:33 pm RUQ pain January 12, 2025 1:33 pm Advance Directives Advance Directive Response Recorded Date/ Time Living Will No July 20 024 4:44pm Do you have a Healthcare Power of Retail Greeter? No July 20, 2024 4:44pm Advance Directive Response Recorded Date/ Time Do you have a Healthcare Power of Retail Greeter? No January 12, 2025 9:55am Summary Purpose Family History No Family History Records Found Additional Source Comments Care Teams (unrecognized sec tion and content) Team Status: Active Member Role Status Dates Dr. Belle Monk MD Primary Care Provider Active Team Status: Inactive Member Role Status Dates No Primary Care Physician Primary Care Provider Active Start: July 20, 2024 End: July 20, 2024 Dr. Gilbert Thompson MD Attending Provider Active Sta rt: July 20, 2024 End: July 20, 2024 Dr. Gilbert Thompson MD Emergency Provider Active Sta rt: July 20, 2024 End: July 20, 2024 Team Status: Inactive Member Role Status Dates Dr. Belle Monk MD Primary Care Provider Active Start: October 22, 2024 End: October 22, 2024 Dr. Belle Monk MD Attending Provider Active Start: October 22, 2024 End: October 22, 2024 Dr. Belle Monk MD Referring Provider Active Start: October 22, 2024 End: October 22, 2024 Team Status: Inactive Member Role Status Dates Dr. Belle Monk MD Primary Care Provider Active Start: January 04, 2025 End: January 04, 2025 Dr. Belle Monk MD Attending Provider Active Start: January 04, 2025 End: January 04, 2025 Team Status: Active Member Role Status Dates Dr. Belle Monk MD Primary Care Provider Active Start: January 05, 2025 Dr. Belle Monk MD Attending Provider Active Start: January 05, 2025 Dr. Belle Monk MD Referring Provider Active Start: January 05, 2025 Team Status: Inactive Member Role Status Dates Dr. Belle Monk MD Primary Care Provider Active Start: January 05, 2025 End: January 05, 2025 Dr. Belle Monk MD Attending Provider Active Start: January 05, 2025 End: January 05, 2025 Dr. Belle Monk MD Referring Provider Active Start: January 05, 2025 End: January 05, 2025 Team Status: Inactive Member Role Status Dates Dr. Belle Monk MD Primary Care Provider Active Start: January 12, 2025 End: January 12, 2025 Dr. Belle Monk MD Referring Provider Active Start: January 12, 2025 End: January 12, 2025 Dr. Freeman Stauffer MD Attending Provider Active Start: January 12, 2025 End: January 12, 2025 Team Status: Active Member Role Status Dates Dr. Belle Monk MD Primary Care Provider Active Start: January 12, 2025 Jeremy Lockett MD Emergency Provider Active Star t: January 12, 2025 Dr. Matilde Henry MD Admit Provider Active Star t: January 12, 2025 Dr. Matilde Henry MD Attending Provider Active Start: January 12, 2025 Team Status: Active Member Role Status Dates Dr. Belle Monk MD Primary Care Provider Active Start: January 12, 2025 Jeremy Lockett MD Emergency Provider Active Star t: January 12, 2025 Dr. Matilde Henry MD Attending Provider Active Start: January 12, 2025 Goals (unrecognized section and content) Goals may be documented in a n alternate sectionGoals may be documented in an alternate sectionGoals may be documented in an alternate sectionGoals may be documented in an alternate sectionGoals may be documented in an alternate section (unrecognized sect ion and content) No Status Records Found INFORMATION SOURCE (unrecogn ized section and content) DATE CREATED AUTHOR 01/12/2025 [facility] FOR RECORDS PERTAINING TO PATIENTS WHO ARE OR HAVE BEEN ENROLLED IN A CHEMICAL DEPENDENCY/SUBSTANCEABUSE PROGRAM, SOME INFORMATION MAY BE OMITTED. This clinical summary was aggregated from multiple sources. Caution should be exercised in using it in the provision of clinical care. This summary normalizes information from multiple sources, and as a consequence, information in this document may materially change the coding, format and clinical context of patient data. In addition, data may be omitted in some cases. CLINICAL DECISIONS SHOULD BE BASED ON THE PRIMARY CLINICAL RECORDS. [employer] provides no warranty or guarantee of the accuracy or completeness of information in this document.
[2025-01-13] VITALS (13 sets, daily range): BP systolic 106–159; BP diastolic 65–91; PULSE 68–88; RESP 16–18; TEMP 36.4–37.1; O2SAT 97–100; BMI 25.7
[2025-01-13] MEDS: 0.9% Normal Saline (1000mL) 1,000 ML 100 ML IV (02:53)
[2025-01-13 05:50] LABS: Absolute Lymphocyte Count 0.73 X10^3/uL (0.83-4.51); Absolute Neutrophil Count 3.1 X10^3/uL (2.0-7.7); Basophil# 0.01 X10^3/uL; Basophil% 0.2 % (0-1); Eosinophil# 0.08 X10^3/uL; Eosinophils% 1.8 % (0-5); Hematocrit 38.5 % (40-54); Hemoglobin 13.5 g/dL (13.0-16.5); Lymphocyte # 0.73 X10^3/ul (0.83-4.51); Lymphocyte % 16.9 % (19-41); Mean Corp Hgb Conc 35.1 g/dL (32-36); Mean Corpuscular Hgb 29.9 pg (27.0-32.0); Mean Corpuscular Volume 85.2 fL (80-94); Mean Platelet Vol. 10.1 fl (6.2-12.0); Monocyte# 0.43 X10^3/uL; Monocyte% 9.9 % (0-10); NRBC Flagged by Analyzer 0 % (0-5); Neutrophil # 3.06 X10^3/uL (2.7-7.7); Neutrophil % 70.7 % (47-70); Platelet Count 233 K/mm3 (150-450); RBC Distribution Width CV 14.1 % (11.6-14.6); RBC Distribution Width SD 43.9 fl (35.1-43.9); Red Blood Count 4.52 M/mm3 (4.6-6.2); White Blood Count 4.3 K/mm3 (4.4-11.0)
[2025-01-13 06:06] LABS: Bedside Glucose 240 mg/dL (74-106)
[2025-01-13 06:44] LABS: ALB/GLOB Ratio 1.4 RATIO (0.9-2.4); AST(SGOT) 50 U/L (<=37); Alanine Aminotransfer ALT/SGPT 94 U/L (<=46); Albumin, Serum 3.6 g/dL (3.4-4.8); Alkaline Phosphatase 267 U/L (40-129); Anion Gap 12 (5-15); BUN 20 mg/dL (4-19); BUN/Creat Ratio 27.3 RATIO (10-20); Calcium,Total 9.1 mg/dL (7.6-11.0); Chloride 102 mmol/L (98-108); Creatinine, Serum 0.71 mg/dL (0.70-1.20); EST Glomerular Filtration Rate 99 (>60); Estimated Creatinine Clearance 89.98 ml/min (50-250); Globulin 2.5 g/dL (2.2-4.2); Glucose 258 mg/dL (70-99); Potassium 4.2 mmol/L (3.3-5.1); Protein, Total 6.1 g/dL (5.9-8.4); Sodium Level 136 mmol/L (133-145)
--- NOTE | 2025-01-13 09:00 | CASEMGMT ---
Addendum entered by Osito Valentine 01/14/25 08:45: 6/26: Strata: 2 Pt has a PCP listed in [facility]. Original Note: RN ZOHREH note: Medical record reviewed and patient evaluated for identification of discharge planning needs. 6 cl: 24, no PT/OT ordered, and no CM consult ordered. Patient does not currently demonstrate a need for discharge planning by RN ZOHREH. CM will continue to be available for any discharge needs that may arise, and intervene as indicated. Marzena AGUILARN AKIL CM
[2025-01-13] MEDS: Insulin Lispro 100 UNIT/ML INSULN.PEN SC ×3 (11:40→21:31)
--- NOTE | 2025-01-13 13:00 | MASS_PTH ---
PATIENT: ERICK TYSON LOC: MS3 U#:[id number] AGE/SX: 69/M ROOM: CA319 RE01/12/[address]: Dr. Monico Benites DO : 1955 BED: 1 DIS: 01/14/2025 SPEC #: [id number] RECD: 01/13/25 14:37 STATUS: PAOLA REQ #: [id number] JUAN DAVID: 01/13/25 13:[address]: Trevon Webber DEPT: SURGICAL PATHOLOGY RECD BY: Larry Hugo ENTERED: 01/13/25 15:50 SP TYPE: Mass OTHR DR: MD Dr. Monico Larson DO Dr. Paige Pierce, MD Tissues: A - Bile duct, NOS Procedures: Immunohistochemical Stains Surgery Specimen Level IV IHC Stain ADDITIONAL Comments: @ Ordering doctor for SUIII edited from to @ by INOCENTE at 01/13/25 1550 @ Submitting doctor edited from to @ by INOCENTE at 01/13/25 1550 HEADER OPERATION: ERCP with spyglass, brushings, biopsy and stent placement PRE-OP DIAGNOSIS: Jaundice, dilated bile duct, dilated pancreatic duct, right upper quadrant pain, diabetes mellitus, type 2 TISSUE SUBMITTED: A- Mid common bile duct mass biopsy, spy bite MICROSCOPIC DIAGNOSIS A. Common bile duct, mid, mass, biopsy: * Fragments of columnar epithelium with focal atypia, favor reactive. * IHC p53 not increased, with rare weak reactivity favoring wild type (limited sample). * IHC Ki67 patchy positive, not increased. MICROSCOPIC DESCRIPTION Slides are reviewed. GROSS DESCRIPTION A. Received in formalin labeled with the patient's name and date of . Designated as mid common bile duct mass BX spy bite is a 0.5 x 0.1 x <0.1 cm aggregate of tissue flecks. Entirely submitted in 1 cassette. Entirety of the specimen may not survive processing. [place] 01/13/2025 CPT:93337,66024,13396
--- NOTE | 2025-01-13 13:00 | FLU_PTH ---
PATIENT: ERICK TYSON LOC: MS3 U#:[id number] AGE/SX: 69/M ROOM: NC319 RE01/12/[address]: Dr. Monico Benites DO : 1955 BED: 1 DIS: 01/14/2025 SPEC #: [id number] RECD: 01/13/25 14:37 STATUS: PAOLA REQ #: [id number] JUAN DAVID: 01/13/25 13:[address]: Trevon Webber DEPT: CYTOLOGY RECD BY: Larry Hugo ENTERED: 01/14/25 09:21 SP TYPE: Fluid OTHR DR: MD Dr. Monico Larson DO Dr. Paige Pierce, MD Tissues: A - Bile duct, NOS Procedures: Special Stain Group II Surgery Specimen Level IV Cytospin Fluid Cytology Other Comments: @ Ordering doctor for SSII edited from to @ by INOCENTE at 01/14/25 09 @ Ordering doctor for SUIII edited from to @ by INOCENTE at 01/14/25 09 @ Ordering doctor for SUIV edited from to @ by INOCENTE at 01/14/25 0921 @ Ordering doctor for CYSPIN edited from to @ by INOCENTE at 01/14/25 0921 @ Submitting doctor edited from to @ by INOCENTE at 01/14/2521 HEADER OPERATION: ERCP with spyglass, brushings, biopsy and stent placement PRE-OP DIAGNOSIS: Jaundice, dilated bile duct, dilated pancreatic duct, right upper quadrant pain, diabetes mellitus, type 2 TISSUE SUBMITTED: A- Mid common bile duct brushings, brush tip DIAGNOSIS CYTOLOGY A. Common bile duct, mid portion, brushings (cytospin, smear x4, cellblock): * No malignant cells identified. * Note: See also concurrent biopsy specimen [id number]. CYTOLOGY STUDY Slides are reviewed. CYTOLOGY GROSS A. Received is one brush tip with 0.5 ml of light-yellow fluid and 4 slides labeled with the patient's name and and designated per the requisition as Mid common bile duct. Submitted for cytology. 01/14/2025 CPT: 27624, 01611 ADDENDUM ADDENDUM ADDENDUM ADDENDUM ADDENDUM ADDENDUM ADDENDUM ADDENDUM ADDENDUM ADDENDUM 02/21/2025 11:11 ADDENDUM 02/21/2025 11:11 ADDENDUM 02/21/2025 11:11 ADDENDUM 02/21/2025 11:11 ADDENDUM 02/21/2025 11:11 This addendum is added to incorporate an outside pathology consultation report. The case was examined at [facility] by Dr. Montoya (#[id number]) and the following diagnosis was rendered. A. Common bile duct, mid portion, brushings: No malignant cells are identified. Please see complete above mentioned consultation report in EMR
[2025-01-13 13:04] LABS: Bedside Glucose 222 mg/dL (74-106)
--- NOTE | 2025-01-13 13:05 | PCM.PN.BLA ---
Progress Note MRI/MRCP Abdomen without Contrast IMPRESSION: Findings consistent with an isointense filling defect in the mid aspect of the common bile duct suspicious for a soft tissue mass, unlikely common bile duct stone. Associated intrahepatic and extrahepatic blade ductal dilatation as well as dilatation of the gallbladder and pancreatic duct. Left renal cyst. Physical Exam Const alert, oriented x3, no apparent distress and healthy appearing General Appearance: cooperative GI normal to inspection, nondistended, normoactive bowel sounds, soft to palpation, non-tender and non-distended Percussion: normal to percussion Rectal Exam: deferred Assessment & Plan Assessment/Plan (1) Jaundice: (2) Dilated bile duct: (3) Dilated pancreatic duct: (4) RUQ pain: (5) Diabetes mellitus, type 2: PLAN: Plan 69-year-old with new onset diabetes in the setting of new onset weight loss, right upper quadrant discomfort and jaundice. Differential diagnosis does include microlithiasis,, ampullary lesion, pancreatic lesion, cholangiocarcinoma. He should undergo MRCP, CA 19-9, ESR, CRP, ERCP with possible spyglass, alpha-fetoprotein, IgG4, ANCA, protein electrophoresis, THANH comprehensive. Visit Charges Inpatient E&M: 70539 Subs Hosp L2
[2025-01-13] MEDS: Lactated Ringers 1,000 ML 15 ML IV (13:12)
--- NOTE | 2025-01-13 13:15 | PCM.PRE.AN2 ---
ASA Classification* ASA Classification ASA Classification: 2 Assessment & Plan Anesthesia* Anesthesia Assessment Anesthesia Assessment: Discussed sedation and/or anesthesia options, risks, benefits, and alternatives with patient/parents/legal guardian/POA. Questions invited. The patient/parents/legal guardian/POA seems to understand and agrees to proceed with anesthesia plan. Reviewed the physical assessment, medical history, allergy history and patient home medications list prior to surgery/procedure/anesthetic and documented any changes. Performed airway and anesthesia risk assessments. Anesthesia Type Anesthesia Type: General (Consider Gibson scope intubation.) History Source History Obtained from:: Patient and Chart Anesthesia Focused Assessment* Temperature: 98.2 F Pulse Rate: 78 Blood Pressure: 144/79 Respiratory Rate: 16 Pulse Ox: 99 Oxygen Delivery Method: Room Air Airway Assessment Mouth opens: >3 cm Mallampati Score: IV Teeth Condition: Caps/Crowns (Patient has a couple crowns. They are tight.) Neck Range of motion (ROM): Limited ROM Labs Anesthesia Preop lab: CBC WBC 4.3 K/mm3 (4.4-11.0) L 01/13/25 05:12 01/13/25 RBC 4.52 M/mm3 (4.6-6.2) L 01/13/25 05:12 01/13/25 Hgb 13.5 g/dL (13.0-16.5) 01/13/25 05:12 01/13/25 Hct 38.5 % (40-54) L 01/13/25 05:12 01/13/25 Plt Count 233 K/mm3 (150-450) 01/13/25 05:12 01/13/25 CHEMISTRY Potassium 4.2 mmol/L (3.3-5.1) 01/13/25 05:12 01/13/25 Sodium 136 mmol/L (133-145) 01/13/25 05:12 01/13/25 BUN 20 mg/dL (4-19) H 01/13/25 05:12 01/13/25 Creatinine 0.71 mg/dL (0.70-1.20) 01/13/25 05:12 01/13/25 Glucose 258 mg/dL (70-99) H 01/13/25 05:12 01/13/25 POC Glucose 222 mg/dL (74-106) H 01/13/25 11:37 01/13/25 COAG Pre-Assessment Diagnosis/Proposed Procedure Planned Operative Procedure(s): Endoscopic retrograde cholangiopancreatography Anesthesia History 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 When Was Last Pacemaker Check QUESTION #4 FULL TEXT: You/Your Family Experience fever (hyperthermia) with Anesthesia Last Oral Intake Last Oral intake: Last Oral Intake NPO since 22:00 01/13/25 12:57 Meds taken in AM with sips of No 01/13/25 12:57 water? Meds patient instructed to take am of surgery PONV PONV - foreign exchange student coordinator: PONV - foreign exchange student coordinator Female HX of Motion Sickness HX of N/V After Surgery Non-Smoker Duration of Surgery greater than 60 minutes Number of Risk Factors PONV Score Height & Weight Height & Weight: Anesthesia: Height & Weight Height 5 ft 11 in 01/13/25 12:57 Weight: 83.461 kg 01/13/25 12:57 Body Mass Index (BMI) 25.7 01/13/25 12:57 Respiratory Assessment Respiratory Assessment - foreign exchange student coordinator: Respiratory Tract Infection Hx - foreign exchange student coordinator Hx Respiratory Tract Infection No 01/13/25 00:08 STOP Sleep Apnea STOP Sleep Apnea - foreign exchange student coordinator: STOP Sleep Apnea - foreign exchange student coordinator Hx Hypertension No 01/12/25 15:00 Hx Sleep Apnea No 01/12/25 15:00 CPAP BIPAP Do you snore loudly (louder No 01/12/25 15:00 than talking or can be heard Do you often feel tired/ No 01/12/25 15:00 fatigued/ sleepy during daytime? Has anyone observed you stop No 01/12/25 15:00 breathing during sleep? STOP Results Negative 01/12/25 15:00 QUESTION #5 FULL TEXT : Do you snore loudly (louder than talking or can be heard through closed doors)? 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 Specify any problems Hx of Preganancy in last 3 N/A 01/12/25 15:00 Months Nurse Filling Out Transfusion JRADER 01/12/25 15:00 & Questions: Date: 01/12/25 01/12/25 15:00 Time: 15:13 01/12/25 15:00 Patient unable to answer at this time (ie. confused, unrespo /Reproduction History /Reproductive History - foreign exchange student coordinator: /Reproductive Hx- foreign exchange student coordinator Hx Now Gestational Age (in weeks): EDC: Hx Hx Para Hx Section SAB Active Medications Active Medications: Current Medications Generic Name Dose Route Start Last Admin Trade Name Freq PRN Reason Stop Dose Admin Albuterol Sulfate 2.5 mg 01/12/25 15:01 Albuterol 2.5 Mg/3 Ml Vial.Neb. INHALATION Q2H PRN PRN SOB &/OR WHEEZING Glucagon 1 mg 01/12/25 15:01 Glucagon 1 Mg/Ml Syringe IM X1 PRN HYPOGLYCEMIA Protocol Dextrose 250 mls @ 0 mls/hr 01/12/25 15:01 Dextrose 10%-Water IV .Q0M PRN HYPOGLYCEMIA Protocol As Directed Sodium Chloride 250 mls @ 15 mls/hr 01/12/25 15:53 IV .[id number] PRN Saline Flush Sodium Chloride 250 mls @ 15 mls/hr 01/12/25 15:53 IV .[id number] PRN Additional IVPB Infusion Lactated Ringer's 1,000 mls @ 15 mls/hr 01/13/25 13:15 01/13/25 13:12 IV 15 mls/hr .Q48H JACOB Administration Ibuprofen 600 mg 01/12/25 15:01 Ibuprofen 600 Mg Tablet PO Q6H PRN PRN Pain Score 1-10 Insulin Human Lispro 0 unit 01/12/25 16:00 01/13/25 11:40 Insulin Lispro 100 Unit/Ml Insuln.Pen SC 2 u ACHS JACOB Administration Protocol Melatonin 10 mg 01/12/25 15:01 Melatonin 10 Mg Tablet PO QHS PRN PRN INSOMNIA Ondansetron HCl 4 mg 01/12/25 15:01 Ondansetron 4 Mg/2 Ml Vial IV Q8H PRN PRN NAUSEA/VOMITING Oxycodone HCl 5 mg 01/12/25 15:01 Oxycodone 5 Mg Tablet PO Q4H PRN PRN Pain Score 4-10 Senna/Docusate Sodium 2 tablet 01/12/25 15:01 Senna/Docusate Sodium 1 Tablet PO BID PRN PRN Constipation Sodium Chloride 10 - 40 ml 01/12/25 15:53 0.9% Saline Lock 10 Ml Syringe IV UD PRN SALINE FLUSH PFSH Medical History Diabetes mellitus, type 2 Umbilical hernia Gallbladder problem Nausea RUQ pain Cataract Home Medications ?Medication ?Instructions ?Recorded ?Last Taken ?Type sitagliptin phosphate 25 mg tablet 25 mg PO QHS 01/12/25 01/11/25 History (Januvia) Allergy/AdvReac Type Severity Reaction Status Date / Time No Known Allergies Allergy Verified 01/12/25 08:55 Surgical History H/O right inguinal hernia repair History of appendectomy Social History household members: spouse Smoking Status: Never smoker Review of Systems (Anesthesia) ROS Narrative System reviewed and no additional complaints, except as documented.
--- NOTE | 2025-01-13 13:30 | RAD_ITS ---
PROCEDURE: ERCP BILIARY/PANCREAS; O.R. FLUORO FOR C-ARM 01/13/2025 REASON FOR EXAM: ERCP TECHNIQUE: Intraoperative fluoroscopy for ERCP. 7 fluoroscopic images were also obtained. Fluoroscopy time: 67.1 seconds. 21.38 mGy dose. RAD/ERCP Biliary/Pancreas IMPRESSION: Intraoperative fluoroscopy for ERCP. 7 fluoroscopic images were also obtained. Reading Location: [place] [address]
--- NOTE | 2025-01-13 13:30 | RAD_ITS ---
PROCEDURE: ERCP BILIARY/PANCREAS; O.R. FLUORO FOR C-ARM 01/13/2025 REASON FOR EXAM: ERCP TECHNIQUE: Intraoperative fluoroscopy for ERCP. 7 fluoroscopic images were also obtained. Fluoroscopy time: 67.1 seconds. 21.38 mGy dose. RAD/O.R. Fluoro for C-Arm IMPRESSION: Intraoperative fluoroscopy for ERCP. 7 fluoroscopic images were also obtained. Reading Location: [place] [id number]
--- NOTE | 2025-01-13 14:38 | PCM.POST.ANE ---
Anesthesia: Postop Eval I Current Vital Signs Temperature: 97.5 F Pulse Rate: 85 Blood Pressure: 135/91 Respiratory Rate: 16 Pulse Ox: 97 Assessment Airway patent: Yes Spontaneous unlabored respirations: Yes nausea: No Vomiting: No Anesthesia Complication: No Fluid Hydration Crystalloid volume administer (ml): 800 Total IV fluid infused: 800 Progress Note Anesthesia document: Postop Eval 1 completed: Yes
[2025-01-13] MEDS: 0.9% Saline Lock 10 ML Syringe IV (15:38)
[2025-01-13] MEDS: HYDROmorphone 1 MG/ML Syringe IV (15:38)
--- NOTE | 2025-01-13 16:50 | PN.HOSP_ITS ---
Reason for Visit Reason for Visit: Diagnoses Type 2 diabetes mellitus without complications (01/12/25) Other specified diseases of biliary tract (01/12/25) Other specified diseases of pancreas (01/12/25) Right upper quadrant pain (01/12/25) Unspecified jaundice (01/12/25) Subjective Subjective Patient was seen and examined today, he underwent an ERCP today, I talked directly with the dry cleaning machine operator who stated there was a neoplasm in the common bile duct, a stent was placed. Discussions were carried out with the family and the patient as to where he would want to be referred to, gastroenterology stated that he would recommend either the [facility] or [facility]. At this time, patient's would prefer the [facility] but the patient stated that he would rather go to [facility]. They will have a further discussion among themselves to decide where he would want to go, I will attempt to see if I can facilitate a transfer directly to another hospital to expedite treatment. Objective Data Objective Data Vital Signs: Vital Signs Temp Pulse Resp BP Pulse Ox O2 Del Method 97.5 F L 70 16 138/82 H 100 Room Air 01/13/25 15:07 01/13/25 15:07 01/13/25 15:07 01/13/25 15:07 01/13/25 15:07 01/13/25 15:07 Oxygen Delivery Method Room Air Weight: 83.461 kg Body Mass Index (BMI) 25.7 Intake & Output: Intake and Output for Last 24 Hours 01/11/25 01/12/25 01/13/25 23:59 23:59 23:59 Intake Total 1330 / 1330 670 / 670 Balance 1330 / 1330 670 / 670 Lab / Micro Data 01/13/25 05:12 01/13/25 05:12 Labs: Laboratory Results - last 24 hr 01/12/25 16:29: POC Glucose 237 H 01/12/25 20:02: ESR 27 H, Lactate Dehydrogenase 143, C-React Prot Ext Range 5.58 H 01/12/25 21:23: POC Glucose 222 H 01/13/25 05:12: WBC 4.3 L, RBC 4.52 L, Hgb 13.5, Hct 38.5 L, MCV 85.2, MCH 29.9, MCHC 35.1, RDW Std Deviation 43.9, RDW Coeff of Monik 14.1, Plt Count 233, MPV 10.1, Immature Gran % (Auto) 0.500, Neut % (Auto) 70.7 H, Lymph % (Auto) 16.9 L, Sweet Grass % (Auto) 9.9, Eos % (Auto) 1.8, Baso % (Auto) 0.2, Absolute Neuts (auto) 3.1, Absolute Lymphs (auto) 0.73 L, Nucleated RBC % 0, Sodium 136, Potassium 4.2, Chloride 102, Carbon Dioxide 22.0, Anion Gap 12, BUN 20 H, Creatinine 0.71, Estim Creat Clear Calc 89.98, Est GFR (MDRD) Non-Af 99, BUN/Creatinine Ratio 27.3 H, Glucose 258 H, Calcium 9.1, Total Bilirubin 12.20 H, AST 50 H, ALT 94 H, Alkaline Phosphatase 267 H, Total Protein 6.1, Albumin 3.6, Globulin 2.5, Albumin/Globulin Ratio 1.4, ASYA-1 Antibody TNP, Sm (Krishna) Antibody TNP, LIFT SUPERVISOR Antibody TNP, Scl-70 Scleroderma Ab TNP, Antichromatin Antibodies TNP, Centromere B Antibody TNP 01/13/25 05:46: POC Glucose 240 H 01/13/25 11:37: POC Glucose 222 H Radiography Diagnostic Testing: Radiology Impression MRCP 01/12/25 18:19 IMPRESSION: Findings consistent with an isointense filling defect in the mid aspect of the common bile duct suspicious for a soft tissue mass, unlikely common bile duct stone. Associated intrahepatic and extrahepatic blade ductal dilatation as well as dilatation of the gallbladder and pancreatic duct. Left renal cyst. Reading Location: [place] [id number] Physical Exam Const alert, oriented x3 and no apparent distress Constitutional Narrative: Patient is visibly jaundiced General Appearance: cooperative, well kempt and well developed Orientation / Consciousness: awake, oriented to person, oriented to place and oriented to time HEENT normocephalic, head/scalp atraumatic and moist oral mucous membranes Eyes PERRL, EOMs intact bilaterally and conjunctivae normal Neck supple, no JVD, thyroid normal and no carotid bruits General: trachea midline Resp normal respiratory effort, no retractions, no use of accessory muscles and clear to auscultation bilaterally Auscultation: Negative for rales, rhonchi or wheezes Cardio regular rate, regular rhythm, S1 normal heart sound, S2 normal heart sound, no murmurs, no rub and no gallops GI normal to inspection, nondistended, normoactive bowel sounds, soft to palpation, non-tender and non-distended Extremity no clubbing, cyanosis or edema Skin no rashes or lesions noted General Skin Exam: no breakdown Neuro oriented x3, CN's II-XII intact bilaterally, moves all extremities, no focal motor deficits and no sensory deficits noted Sensorium / Orientation: awake and alert Speech: speech normal Psych affect normal Assessment & Plan Assessment/Plan (1) Jaundice: PLAN: Plan 1. 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 #2 type 2 diabetes-patient's blood sugars will be monitored, sliding scale insulin will be administered as needed Total clinical time spent by myself addressing the patient's medical issues, reviewing all of his data, and collaborating with patient's care team: 35-minute Charges/Coding Visit Charges Inpatient E&M: 80564 Subs Hosp L2
[2025-01-13 17:30] LABS: Bedside Glucose 237 mg/dL (74-106)
--- NOTE | 2025-01-13 17:39 | OP.ERCP_ITS ---
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 Refer to note in patient chart for documentation of history and physical. Patient has symptoms of acute right upper quadrant abdominal pain and acute jaundice. This patient has no history of previous ERCP. This patient has no history of surgical alteration of the upper digestive tract anatomy. Complications: No immediate complications. Procedure: Pre-Anesthesia Assessment: - Prior to the procedure, a History and Physical was performed, and patient medications and allergies were reviewed. The patient is competent. The risks and benefits of the procedure and the sedation options and risks were discussed with the patient. All questions were answered and informed consent was obtained. Patient identification and proposed procedure were verified by the physician. Prophylactic Antibiotics: The patient does not require prophylactic antibiotics. Prior Anticoagulants: The patient has taken no anticoagulant or antiplatelet agents except for NSAID medication. ASA Grade Assessment: III - A patient with severe systemic disease. After reviewing the risks and benefits, the patient was deemed in satisfactory condition to undergo the procedure. The anesthesia plan was to use monitored anesthesia care (MAC). Immediately prior to administration of medications, the patient was re-assessed for adequacy to receive sedatives. The heart rate, respiratory rate, oxygen saturations, blood pressure, adequacy of pulmonary ventilation, and response to care were monitored throughout the procedure. The physical status of the patient was re-assessed after the procedure. After obtaining informed consent, the scope was passed under direct vision. Throughout the procedure, the patient's blood pressure, pulse, and oxygen saturations were monitored continuously. The Duodenoscope was introduced through the mouth, and advanced to the duodenum and used to inject contrast into the bile duct. The ERCP was accomplished without difficulty. The patient tolerated the procedure well. Scope In: 1:40:02 PM Scope Out: 2:22:37 PM Total Procedure Duration Time 0 hours 42 minutes 35 seconds Findings: The agent contract clerk film was normal. The esophagus was successfully intubated under direct vision. The scope was advanced to a normal major papilla in the descending duodenum without detailed examination of the pharynx, larynx and associated structures, and upper GI tract. The upper GI tract was grossly normal. The bile duct was deeply cannulated with the short-nosed traction sphincterotome. Contrast was injected. I personally interpreted the bile duct images. Ductal flow of contrast was adequate. Image quality was adequate. Contrast extended to the entire biliary tree. Opacification of the entire opacified area and entire biliary tree was successful. The maximum diameter of the ducts was 10 mm. The middle third of the main bile duct contained a single localized stenosis 6 mm in length. The upper third of the main bile duct, common hepatic duct, hepatic duct bifurcation and left and right hepatic ducts and all intrahepatic branches were diffusely dilated, secondary to a stricture. The largest diameter was 12 mm. A long 0.025 inch Jagwire was passed into the biliary tree. A 5 mm biliary sphincterotomy was made with a traction (standard) sphincterotome using ERBE electrocautery. There was no post-sphincterotomy bleeding. The biliary tree was swept with a 12 mm balloon starting at the bifurcation, left intrahepatic duct(s) and right intrahepatic duct(s). Sludge was swept from the duct. All stones were removed. Cells for cytology were obtained by brushing in the middle third of the main bile duct. The bile duct was explored endoscopically using the SpyGlass direct visualization system. The SpyScope was advanced to the right intrahepatic duct(s). Visibility with the scope was good. The lumen of the middle third of the main bile duct was severely narrowed. The middle third of the main bile duct contained a single localized stenosis 6 mm in length. The middle third of the main bile duct was biopsied with a Kangsheng Chuangxiangite miniature biopsy forceps for histology. One 10 Fr by 12 cm temporary stent was placed 5 cm into the common bile duct. Bile flowed through the stent. The stent was in good position. Impression: - Severely narrowed lumen in the middle third of the main bile duct visualized via SpyGlass. 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 - The upper third of the main bile duct, left and right hepatic ducts and all intrahepatic branches and common hepatic duct were dilated, secondary to a stricture. - Choledocholithiasis was found. Complete removal was accomplished by biliary sphincterotomy and balloon extraction. - A biliary sphincterotomy was performed. - The biliary tree was swept. - Cells for cytology obtained in the middle third of the main bile duct. - Biopsy was performed in the middle third of the main bile duct. - One temporary stent was placed into the common bile duct. Procedure Code(s): --- Professional --- 78964, Endoscopic retrograde cholangiopancreatography (ERCP); with placement of endoscopic stent into biliary or pancreatic duct, including pre- and post-dilation and guide wire passage, when performed, including sphincterotomy, when performed, each stent 41770, 51, Endoscopic retrograde cholangiopancreatography (ERCP); with removal of calculi/debris from biliary/pancreatic duct(s) 69910, 59, Endoscopic retrograde cholangiopancreatography (ERCP); with biopsy, single or multiple 81948, Endoscopic cannulation of papilla with direct visualization of pancreatic/common bile duct(s) (List separately in addition to code(s) for primary procedure) 02359, 26, Endoscopic catheterization of the biliary ductal system, radiological supervision and interpretation CPT copyright 2021 [employer]. All rights reserved. The codes documented in this report are preliminary and upon marketing and public relations manager review may be revised to meet current compliance requirements. Trevon Webber DO 01/13/2025 5:39:20 PM This report has been signed electronically. Number of Addenda: 0 Note Initiated On: 01/13/2025 1:01 PM
--- NOTE | 2025-01-13 17:40 | OP.CCLET_ITS ---
01/13/2025 Belle Monk [place] [id number] [address] Re : ERCP procedure for Anthony Gautam Dear Dr. Monk This procedure was performed on December. My impressions and recommendations are as follows: Impressions : - Severely narrowed lumen in the middle third of the main bile duct visualized via SpyGlass. 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 - The upper third of the main bile duct, left and right hepatic ducts and all intrahepatic branches and common hepatic duct were dilated, secondary to a stricture. - Choledocholithiasis was found. Complete removal was accomplished by biliary sphincterotomy and balloon extraction. - A biliary sphincterotomy was performed. - The biliary tree was swept. - Cells for cytology obtained in the middle third of the main bile duct. - Biopsy was performed in the middle third of the main bile duct. - One temporary stent was placed into the common bile duct. Recommendations : My findings are described in the full procedure note, which is enclosed. If I can be of further assistance, please feel free to contact me at . Sincerely, Trevon Webber, 01/13/2025 5:39:20 PM This report has been signed electronically.
--- NOTE | 2025-01-13 18:03 | POSTOPAN2_ITS ---
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 Spontaneous unlabored Yes 01/13/25 14:38 LOGGING CREW [email or web address] respirations Mental status nausea No 01/13/25 14:38 LOGGING CREW [email or web address] Vomiting No 01/13/25 14:38 LOGGING CREW [email or web address] Anesthesia Postop Eval I: Fluid Summary Crystalloid volume administer 800 01/13/25 14:38 LOGGING CREW [email or web address].TNES (ml) Colloids volume administered ( ml) Blood Product volume administered (ml) Total IV fluid infused 800 01/13/25 14:38 LOGGING CREW [email or web address] Anesthesia Postop Eval I: Summary Notes Anesthesia Complication No 01/13/25 14:38 LOGGING CREW [email or web address] Anesthesia Complication Comment: Post-operative progress note Anesthesia: Postop Eval II Evaluation Mental status: Awake Pain Level: 2 nausea: No Vomiting: No
--- NOTE | 2025-01-13 18:03 | PCM.POSTANE2 ---
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.[email or web address] Spontaneous unlabored Yes 01/13/25 14:38 ORACLE IDENTITY MANAGEMENT CONSULTANT.[email or web address] respirations Mental status nausea No 01/13/25 14:38 ORACLE IDENTITY MANAGEMENT CONSULTANT.TNES Vomiting No 01/13/25 14:38 ORACLE IDENTITY MANAGEMENT CONSULTANT.TNES Anesthesia Postop Eval I: Fluid Summary Crystalloid volume administer 800 01/13/25 14:38 ORACLE IDENTITY MANAGEMENT CONSULTANT.TNES (ml) Colloids volume administered ( ml) Blood Product volume administered (ml) Total IV fluid infused 800 01/13/25 14:38 ORACLE IDENTITY MANAGEMENT [email or web address].TNES Anesthesia Postop Eval I: Summary Notes Anesthesia Complication No 01/13/25 14:38 ORACLE IDENTITY MANAGEMENT CONSULTANT.TNES Anesthesia Complication Comment: Post-operative progress note Anesthesia: Postop Eval II Evaluation Mental status: Awake Pain Level: 2 nausea: No Vomiting: No
[2025-01-13 21:51] LABS: Bedside Glucose 251 mg/dL (74-106)
[2025-01-14 02:01] VITALS: BP 135/76; PULSE 51; RESP 16; TEMP 36.7; O2SAT 100
[2025-01-14 05:08] LABS: HEPATITIS B SURFACE AG Negative (Negative); Hep C Antibodies Non Reactive (Non Reactive); Hepatitis A IgM Antibody Negative (Negative); Hepatitis B Core AB IgM Negative (Negative)
[2025-01-14] MEDS: 0.9% Saline Lock 10 ML Syringe IV (06:44)
[2025-01-14] MEDS: HYDROmorphone 1 MG/ML Syringe IV (06:44)
[2025-01-14] MEDS: Insulin Lispro 100 UNIT/ML INSULN.PEN SC ×2 (06:44→11:47)
[2025-01-14 06:55] LABS: Bedside Glucose 190 mg/dL (74-106)
[2025-01-14 10:08] LABS: Anti-Centromere B Ab <0.2 AI (0.0-0.9); Anti-Chromatin <0.2 AI (0.0-0.9); Anti-Jo <0.2 AI (0.0-0.9); Anti-Scleroderma-70 AB 0.3 AI (0.0-0.9); Anti-dsDNA Ab <1 IU/mL (0-9); RNP Ab <0.2 AI (0.0-0.9); SJOGREN'S Anti-SS-A test < 0.2 AI (0.0-0.9); SJOGREN'S Anti-SS-B test < 0.2 AI (0.0-0.9); Smith Ab <0.2 AI (0.0-0.9)
--- NOTE | 2025-01-14 10:42 | DCINST_ITS ---
Discharge Instructions Diet Discharge Diet: 1800 Calorie Control Diet DC O2, CPAP, BIPAP needs Home O2 Discharge instructions: No Dressing / Incision Discharge Activity: Return to Normal Activity Weight Bearing Status: Full weight bearing Follow Up Care Test Results: Test results from this visit will be discussed in further detail at your follow- up appointment, if applicable. Discharge Plan Admission Admit Date/Time: 01/12/25 13:33 Primary Reason for Your Visit: obstructive jaundice Attending Provider: Monico Benites Primary Care Provider: Belle Monk Consulting Providers: Matilde Henry Discharge Orders/Prescriptions Prescriptions: Continued Januvia 25 mg tablet 25 mg PO QHS Referrals / Follow Up: Belle Monk MD [Primary Care Provider] - Petra Sawyer MD [Med Staff - Active Staff] - See Referral Note (stop by his office today to make an appointment for next week) Disposition Disposition (needs filled in before D/C Order can be placed): Home, Self Care
--- NOTE | 2025-01-14 10:56 | DS.PCM_ITS ---
Providers Date of Admission: 01/12/25 Date of Discharge: 01/14/25 Primary Care Physician: Dr. Belle Monk MD Consultations 01/12/25 15:01 Consult: Gastroenterology Routine Consulting Provider: [facility] Reason for Consult: RUQ pain, jaundice EMERGENT Consult: No MD Notified: Yes Date Notified: 01/12/25 Time Notified: 13:35 Method of Notification: Text Reason For Visit: RIGHT UPPER QUADRANT PAIN & JAUNDICE Diagnosis Discharge Diagnosis (1) Jaundice: Status: Acute Code(s): R17 - Unspecified jaundice Plan 1. 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 #2 type 2 diabetes-patient's blood sugars will be monitored, sliding scale insulin will be administered as needed Total clinical time spent by myself addressing the patient's medical issues, reviewing all of his data, and collaborating with patient's care team: 35-minute Medications at Discharge Home Medications sitagliptin phosphate 25 mg tablet (Januvia) 25 mg PO QHS 01/12/25 Hospital Course Operations ERCP (With biopsy of a mass to the common bile duct and placement of the stent in the common bile) Summary of Care Provided Minutes Spent on Discharge: 31 Hospital Course: This 69-year-old white male was seen in the emergency room at [facility] with complaints of jaundice and right upper quadrant abdominal discomfort. He had gone to Dr. Stauffer's office for an office visit regarding a possible gallbladder surgery, he underwent an ultrasound prior to his visit which showed a dilated common bile duct and a distended gallbladder. Patient's bilirubin was 12.5, AST was 51, ALT was 112 and alkaline phosphatase was 292. Patient's glucose was 374, patient was slightly neutropenic at 4. Patient underwent CT of the abdomen and pelvis which showed a hypervascular lesion in the superior aspect of the right hepatic lobe, there is a circumscribed low-density lesion in the left hepatic lobe also. There was moderate intrahepatic biliary dilation, the proximal bile duct is dilated to 2.5 cm, the distal bile duct measures 0.7 cm at the pancreatic head, the pancreatic duct was dilated, the gallbladder was distended, the spleen was enlarged and there was noted to be a stone in the right bladder base. Patient was admitted to [place] [address], and MRCP was obtained, it was read out with findings consistent with an isodense filling defect in the mid aspect of the common bile duct suspicious for soft tissue mass unlikely to be common bile duct stone. Patient underwent an ERCP and there was noted to be a mass in the common bile duct on the ERCP, biopsy was taken of the mass and a stent was placed. Patient's abdominal discomfort improved, on 01/14/2025, patient was seen and examined: On examination he appeared in good health and spirits, patient was jaundiced. Vital signs as documented. Skin warm and dry and without overt rashes. Neck without JVD, neck was supple, trachea midline, thyroid was normal. Lungs clear bilaterally, normal air movement was noted. Heart exam notable for regular rhythm, normal sounds and absence of murmurs, rubs or gallops. Abdomen unremarkable and without evidence of organomegaly, masses, or abdominal aortic enlargement. Bowel sounds are present, abdomen is not distended. Extremities nonedematous, no cyanosis was noted, no clubbing was noted. Neuro: Cranial nerves II through XII are grossly intact, no focal motor deficits were noted, sensation to light touch and pinprick intact, motor exam 5/5 throughout. Psych: Patient is alert and oriented x3, he does not appear anxious or depressed, he does not appear agitated. Patient was discharged home in stable condition on 01/14/2025. Weight / BMI Weight Weight: 83.461 kg Body Mass Index (BMI) 25.7 ABG / Lab / Microbiology Data 01/13/25 05:12 01/13/25 05:12 Laboratory: Laboratory Results - last 24 hr 01/12/25 20:02: Hepatitis A IgM Ab Negative, Hep Bs Antigen Negative, Hep B Core IgM Ab Negative, Hepatitis C Ab (EIA) Non Reactive, Hep C Ab Comment Comment 01/13/25 05:12: ASYA-1 Antibody <0.2, SS-A/Ro IgG Antibody < 0.2, SS-B/La IgG Antibody < 0.2, Sm (Krishna) Antibody <0.2, SPINNING FRAME FIXER Antibody <0.2, Scl-70 Scleroderma Ab 0.3, Double Strand DNA Ab <1, Antichromatin Antibodies <0.2, Centromere B Antibody <0.2 06/26/25 11:37: POC Glucose 222 H 01/13/25 16:41: POC Glucose 237 H 01/13/25 21:30: POC Glucose 251 H 01/14/25 06:33: POC Glucose 190 H Radiography Diagnostic Testing: Radiology Impression C-Arm Fluoroscopy 01/13/25 13:30 IMPRESSION: Intraoperative fluoroscopy for ERCP. 7 fluoroscopic images were also obtained. Reading Location: [facility]-1 Endo Retro Cholangiopancreatogram 01/13/25 13:30 IMPRESSION: Intraoperative fluoroscopy for ERCP. 7 fluoroscopic images were also obtained. Reading Location: [facility]- D/C Instructions Discharge Diet: 1800 Calorie Control Diet Weight Bearing Status: Full weight bearing DC O2, CPAP, BIPAP Needs Home O2 Discharge instructions: No Meaningful Use Info Meaningful Use Meaningful Use Diagnoses (Choose all that apply): None applicable Ischemic Stroke Statin Dosing Therapy Reference: STATIN DOSE THERAPY REFERENCE: * Patients > 75 years receive moderate or high dose statin therapy. * Patients 75 years or YOUNGER should receive HIGH intensity statin dose unless contraindicated. You will be required to document reason for non-treatment if statin daily dose does not meet guidelines. HIGH DOSE STATIN THERAPY DAILY Atorvastatin > than or = to 40 mg Rosuvastatin > than or = to 20 mg Amlodipine + Atorvastatin > than or = to 2.5/40 mg Ezetimibe + Simvastatin 10/80 mg Simvastatin 80mg Discharge Plan Admission Admit Date/Time: 01/12/25 13:33 Primary Reason for Your Visit: obstructive jaundice Attending Provider: Monico Benites Primary Care Provider: Belle Monk Consulting Providers: Matilde Henry Discharge Orders/Prescriptions Prescriptions: Continued Januvia 25 mg tablet 25 mg PO QHS Referrals / Follow Up: Belle Monk MD [Primary Care Provider] - Petra Sawyer MD [Med Staff - Active Staff] - See Referral Note (stop by his office today to make an appointment for next week) Disposition Disposition (needs filled in before D/C Order can be placed): Home, Self Care Charges/Coding Visit Charges Inpatient E&M: 40404 Disch Hosp >30min
[2025-01-14 11:57] LABS: Bedside Glucose 229 mg/dL (74-106)
[2025-01-14 12:46] VITALS: BP 123/71; PULSE 62; RESP 16; TEMP 36.4; O2SAT 100
--- NOTE | 2025-01-14 13:43 | CASEMGMT ---
Addendum entered by Osito Valentine 01/14/25 13:50: AKIL BRUNER to room @ 12:40 PM prior to pt discharging home. Original Note: AKIL BRUNER NOTE: Discharge order is in. Per Ronel Staley, director industrial nursing services @ [facility], has been up to pt's room to talk w/pt re: f/u appt w/[facility] oncology & surgery @ [facility]. AKIL BRUNER to room. Pt and deny having any discharge needs or concerns. Marzena AGUILARN AKIL CM
[2025-01-16 14:07] LABS: AFP, Tumor Marker < 1.8 ng/mL (0.0-8.4); CMV Acute Antibody IgM < 30.0 AU/mL (0.0-29.9); Carbohydrate AG 19-9 328 U/mL (0-35); Cytoplasmic Ab (C-ANCA) <1:20 titer (Neg:<1:20); EBV Acute VCA IgM < 36.0 U/mL (0.0-35.9); EBV-VCA IgG > 600.0 U/mL (0.0-17.9); IgG, Quant 1067 mg/dL (603-1613); Immunoglobulin A 204 mg/dL (61-437); Immunoglobulin E 37 IU/mL (6-495); Immunoglobulin G, Subclass 1 528 mg/dL (248-810); Immunoglobulin G, Subclass 2 287 mg/dL (130-555); Immunoglobulin G, Subclass 3 30 mg/dL (15-102); Immunoglobulin G, Subclass 4 51 mg/dL (2-96); Immunoglobulin M 79 mg/dL (20-172); Perinuclear Ab (P-ANCA) <1:20 titer (Neg:<1:20)
== END 2025-01-14 13:05 | disposition home or self-care (01) | DRG 446 ==
LOC: ED 14:05 → MS3 14:11
PROVIDERS: Internal Medicine Gastroenterology; Admitting Provider Internal Medicine; Emergency Provider Emergency Medicine; PCP Family Medicine; Visit Provider Internal Medicine
PROC: 0F798DZ Dilation of Common Bile Duct with Intraluminal Device, Via Natural or Artificial Opening Endoscopic (ICD-10-PCS; CPT 43260; principal; 2025-01-13 12:40)
DX: K80.51 Calculus of bile duct without cholangitis or cholecystitis with obstruction (principal); K86.89 Other specified diseases of pancreas; E11.9 Type 2 diabetes mellitus without complications; D49.0 Neoplasm of unspecified behavior of digestive system; K82.8 Other specified diseases of gallbladder; R16.1 Splenomegaly, not elsewhere classified; Z79.84 Long term (current) use of oral hypoglycemic drugs; Z90.49 Acquired absence of other specified parts of digestive tract
CPT/HCPCS: 36415; 74177; 74181; 74330; 76000; 80053; 80074; 81001; 82105; 82784; 82785; 82787; 82962; 83615; 83690; 85025; 85652; 86037; 86140; 86225; 86235; 86301; 86645; 86664; 86665; 88108; 88161; 88304; 88305; 88313; 88341; 88342; 93005; 99284; C1889; Q9967; A4216; J2405

== ENCOUNTER → 2025-02-22 | Outpatient (CLI) | payer MEDICARE, OTHER, SELFPAY ==
--- NOTE | 2025-02-22 09:00 | NM_ITS ---
PROCEDURE: BONE SCAN WHOLE BODY 02/22/2025 REASON FOR EXAM: PANCREATIC CA TECHNIQUE: Delayed anterior and posterior whole-body bone scan after radiopharmaceutical administration RADIOPHARMACEUTICAL: 20 mCi Technetium-99m MDP IV COMPARISON: None. FINDINGS: Degenerative changes are seen in the bilateral acromioclavicular joints, bilateral knees,, bilateral 1st carpal-metacarpal joints, and to a lesser extent the spine, elbows, wrists, feet, and sternoclavicular joints. No findings are seen to suggest the presence of osseous metastatic disease. NM/Bone Scan Whole Body IMPRESSION: 1. No scintigraphic evidence of osseous metastatic disease. 2. Degenerative changes as noted. Reading Location: [place] [id number]
--- OUTSIDE RECORDS SUMMARY | 2025-02-22 09:28 | XMS RPT_ITS | CCD ---
Author Organization [facility] CliniSyma Care Team Providers Care Wash Helper Name Role Phone Care Physician, No Primary Primary Care Provider Unavailable Jay HERRERA, Dr. Hunt Attending Provider Jay HERRERA, Dr. Hunt Emergency Provider Aleshia HERRERA, Dr. Odonnell Primary Care Provider Dr. Belle Monk MD Attending Provider Dr. Belle Monk MD Referring Provider Dr. Freeman Stauffer MD Attending Provider [phone] Jeremy Lockett MD Emergency Provider Carl HERRERA, Dr. Clayton Admit Provider Dr. Matilde Henry MD Attending Provider Dr. Matilde Henry MD Other Provider Dr. Elin Benites DO Attending Provider Dr. Matilde Henry MD Attending Provider Dr. Trevon Webber DO Attending Provider Dr. Elin Benites DO Other Provider Dr. Ellen De La Garza MD Attending Provider Dr. Matilde Henry MD Referring Provider Dr. Petra Sawyer MD Attending Provider Dr. Elin Benites DO Referring Provider Dr. Petra Sawyer MD Referring Provider Belle Monk MD Primary Care Provider Digna PEDROZA [facility], Mansour S Unavailable [phone] Kathy Hickman RN Unavailable Unavailable Miedel, Belle Primary Care Unavailable Miedel, Belle Attending Unavailable Miedel, Belle Primary Care Unavailable Miedel, Belle Referring Unavailable Miedel, Belle Attending Unavailable Care Physician, No Primary Primary Care Unava ilable Thompson, Gilbert Attending Unavailable Matilde Henry Consulting Unavailable Miedel, Belle Primary Care Unavailable Elin Benites Attending Unavailable Matilde Henry Admitting Unavailable Miedel, Belle Primary Care Unavailable Isckarus, Mansour Referring Unavailable Duongkarus, Mansour Attending Unavailable Matilde Henry Consulting Unavailable Lawanda, Trevon Attending Unavailable Miedel, Belle Primary Care Unavailable Matilde Henry Admitting Unavailable Elin Benites Referring Unavailable Elin Benites Consulting Unavailable Elin Benites Attending Unavailable Miedel, [place] Primary Care Unavailable Miedel, Belle Referring Unavailable Freeman Stauffer Attending Unavailable Miedel, Belle Primary Care Unavailable Isckarus, Mansour Attending Unavailable Elin Benites Referring Unavailable Ellen De La Garza Attending Unavailable Miedel, [place] Primary Care Unavailable Matilde Henry Referring Unavailable Matilde Henry Attending Unavailable Riedel, Belle Primary Care Unavailable Miedel, Belle Referring Unavailable [facility], Belle Attending [facility]available [facility] [place] Primary Care Unavailable BERNA PERRY Attending Unavailable BALDOMERO ALEJO Referring Unavailable MIEDEL, BELLE Primary Care Unavailable BALDOMERO CLEMONS Attending Unavailable REJI BERRY Referring Unavailable MIEDEL, BELLE Primary Care Unavailable BALDOMERO CLEMONS Attending Unavailable BALDOMERO CLEMONS Referring Unavailable MIEDEL, [place] Primary Care Unavailable MIEDEL, [place] Primary Care Unavailable SELF, SELF Referring Unavailable BALDOMERO ALEJO Attending Unavailable MIEDEL, [place] Primary Care Unavailable ISCKARUS, MANSOUR S Referring Unavailable BALDOMERO ALEJO Attending Unavailable Dr. Belle Monk MD Primary Care Provider Dr. Belle Monk MD Attending Provider [phone] Dr. Belle Monk MD Referring Provider [phone] Dr. Elin Benites DO Referring Provider Dr. Petra Sawyer MD Referring Provider [phone] Medications Current Medications Medication Drug Class(es) Dates Sig (Normalized) Sig (Original) amylase 47962 unt / lipase 01749 unt / protease 46110 unt delayed release oral capsule (5 sources) Start: 01-27-2025 take 2 capsules by mouth at mealtime, then take 1 capsule by mouth once daily Pancreatic enzymes (Creon) 45091-[address]-[address] units [address] Particles Take two by mouth with meals and one with snacks daily. 240 capsule 3 01/27/2025 Active Insulin Glargine-Yfgn 100 unit/mL (3 mL) insulin pen (1 source) Start: 02-21-2025 Insulin Glargine-Yfgn 100 unit/mL (3 mL) insulin pen Active 18 U SC AT BEDTIME February 21, 2025 12:00am Zsxant-Jfrpiyht-Aecbn se (Creon) 12,000-38,000 -60,000 unit capsule,delayed release(DR/EC) (1 source) Start: 02-21-2025 Ilgcsj-Gyahfjux-X mylase (Creon) 12,000-38,000 -60,000 unit capsule,delayed release(DR/EC) Active 2 NMA PO before meals February 21, 2025 12:00am plus 1 cap before snack metFORMIN hydrochloride 500 mg oral tablet (15 sources) Biguanide Start: 01-17-2025 take 1 tablet by mouth twice daily Metformin 500 mg tablet Active 500 mg PO TWICE A DAY January 20, 2025 12:00am Start: 07-20-2024 End: 01-12-2025 take 1 tablet by mouth twice daily Metformin 500 mg tablet Discontinued 500 mg PO TWICE A DAY 60 0 July 20, 2024 1:00am January 12, 2025 8:55am R[place] (Nk) (3 sources) Start: 07-20-2024 [place] (Nk) Active July 20, 2024 1:00am SITagliptin 50 mg oral tablet (11 sources) Dipeptidyl Peptidase 4 Inhibitor Start: 02-21-2025 take 1 tablet by mouth once daily Sitagliptin Phosphate (Januvia) 50 mg tablet Active 50 mg PO daily February 21, 2025 12:00am Start: 01-04-2025 End: 02-21-2025 take 1 tablet by mouth at bedtime Sitagliptin Phosphate (Januvia) 25 mg tablet Discontinued 25 mg PO AT BEDTIME January 12, 2025 12:00am February 21, 2025 1:44pm Completed/Discontinued Medications Medication Drug Class(es) Dates Sig (Normalized) Sig (Original) Aprepitant (APONVIE) injection 32 mg (1 source) Start: 02-04-2025 End: 02-04-2025 32 mg, Intravenous, ONCE, 1 dose, On Fri02/04/25 at 1315, Give by rapid IV push over 30 seconds. 1 ml HYDROmorphone hydrochloride 1 mg/ml cartridge (1 source) Opioid Agonist Start: 02-04-2025 End: 02-05-2025 0.5 mg, Intravenous, EVERY 10 MINUTES NEEDED, 8 doses, Starting on Fri02/04/25 at 1341, Until Fri02/05/25 at 0247, Moderate Pain, Severe Pain, Mild Pain, May give a total of 4mg in PACU., Recovery iohexol (OMNIPAQUE) 240 MG/ML injection (1 source) Start: 02-04-2025 End: 02-04-2025 NEEDED, Starting on Fri02/04/25 at 1418, Until Fri02/04/25 at 1418, Intra-op/Intra-Pro c Problems Active Problems Problem Classification Problem Date Documented Da te Episodic/Chronic Abdominal hernia (5 sources) Umbilical hernia; Translations: [Umbilical hernia without obstruction or gangrene] 01-12-2025 Episodic Abdominal pain (15 sources) Right upper quadrant pain; Translations: [Right upper quadrant pain] Onset: 02-01-2025 01-12-2025 Episodic Biliary tract disease (20 sources) Cholangiectasis; 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] Onset: 01-27-2025 01-12-2025 Chronic Biliary tract disease (10 sources) Gallbladder problem; Translations: [Disease of gallbladder, unspecified] Onset: 01-12-2025 01-12-2025 Episodic Cancer of other GI organs; peritoneum (1 source) Malignant neoplasm of extrahepatic bile duct; Translations: [Malignant neoplasm of extrahepatic bile duct] Onset: 01-20-2025 Chronic Cancer of pancreas (9 sources) Malignant tumor of pancreas; Translations: [Malignant neoplasm of pancreas, unspecified] Onset: 01-27-2025 01-27-2025 Chronic Diabetes mellitus with complications (9 sources) Ketosis; Translations: [Type 2 diabetes mellitus with ketoacidosis without coma] Onset: 08-11-2024 07-28-2024 Chronic Diabetes mellitus without complication (20 sources) Type 2 diabetes mellitus; Translations: [Type 2 diabetes mellitus without complications] Onset: 10-25-2024 Resolved: 01-27-2025 07-28-2024 Chronic Fluid and electrolyte disorders (8 sources) Dehydration; Translations: [Dehydration] 07-28-2024 Episodic Nausea and vomiting (6 sources) Nausea; Translations: [Nausea] Onset: 01-12-2025 01-12-2025 Episodic Neoplasms of unspecified nature or uncertain behavior (1 source) Neoplastic disease; Translations: [Neoplasm of unspecified behavior of unspecified site] 02-10-2025 Episodic Other circulatory disease (8 sources) Elevated blood-pressure reading without diagnosis of hypertension; Translations: [Elevated blood-pressure reading, without diagnosis of hypertension] 07-28-2024 Episodic Other liver diseases (8 sources) Jaundice; Translations: [Unspecified jaundice] 01-12-2025 Episodic Other liver diseases (1 source) Unspecified jaundice; Translations: [Unspecified jaundice] Onset: 02-01-2025 Episodic Other screening for suspected conditions (not mental disorders or infectious disease) (1 source) Patient encounter status; Translations: [Encounter for screening for diabetes mellitus] 02-10-2025 Episodic Pancreatic disorders (not diabetes) (9 sources) Pancreatic duct disorder; Translations: [Other specified diseases of pancreas] Onset: 02-01-2025 01-12-2025 Episodic Secondary malignancies (2 sources) Regional lymph node metastasis present ; Translations: [Secondary and unspecified malignant neoplasm of lymph node, unspecified] 02-21-2025 Chronic Unclassified (3 sources) stop by his office today to make an appointment for next week Unclassified (5 sources) Bowel Prep Onset: 01-27-2025 01-27-2025 Unclassified (1 source) Common bile duct stricture Unclassified (2 sources) K83.1 - Obstruction of bile duct Past or Other Problems Problem Classification Problem Date Documented Da te Episodic/Chronic Mood disorders (6 sources) Mood disorders Onset: 01-27-2025 01-27-2025 Results Test Name Value Interpretation Reference Range Facility CYTOLOGY, NON-GYNon 02-19-20 CYTOLOGIC DIAGNOSIS Normal [facility] Comment on above: Result Comment: A. 2 ND OPINION CONSULTATION, CYTOLOGY - Common BIle Duct, Mid Portion, Brushings ( Collected 01/13/2025): FINAL DIAGNOSIS: No Malignant Cells Are Identified at 1505 EDT Performed By: #### N ONGNFEDERICOFNA #### [facility] (DEFAULT) [address] [place] [address] Case Report Normal [facility] Comment on above: Result Comment: [facility] Cytology Report Case: [id number] Authorizing Provider: Baldomero Alejo MD Collected: 02/18/2025 09:00 AM Ordering Location[facility] Received: 02/18/2025 08:58 AM [facility] Specimen: COMMON BILE DUCT BRUSHING, Common BIle Duct, Mid Portion, Brushings ( Collected 01/13/2025) Performed By: #### N ONGERALDFNA #### [facility] (DEFAULT) [address] [place] [address] Clinical History A 69 year old male presents with a review of slides from an outside facility. Jaundice, dilated bile duct, dilated pancreatic duct, right upper quadrant pain, diabetes mellitus, type 2 Normal [facility] Comment on above: Performed By: #### N ONGNNONFNA #### [facility] (DEFAULT) [address] [place] [address] Gross Description Normal [facility] Comment on above: Result Comment: Subm itted from [facility], [address] [place] [address] are six (6) slides labeled [id number]. An identifying pathology report is included. Outside slides are returned in sixty (60) days under separate cover with our number recorded on them. Performed By: #### N ONGNNONFNA #### [facility] (DEFAULT) [address] [address] Professional Interpretation Performed at: Normal [facility] Comment on above: Result Comment: For Immediate Release to Patient's MyChart? Yes [facility] [address] [address] Performed By: #### N ONGNNONFNA #### [facility] (DEFAULT) [address] [address] ERCPon 02-04-2025 [facility] Gastroenterology Patient Name: Erick Gautam Procedure Date: 02/04/2025 1:23 PM Date of : 1955 Admit Type: Outpatient Age: 69 Room: [place] [address] Gender: Male Note Status: Finalized Attending MD: Baldomero Clemons MD, [id number] Procedure: ERCP Indications: Elevated liver enzymes, Malignant tumor of the head of pancreas Providers: Baldomero Clemons MD (Doctor), Claudia Hobbs RN (Nurse), Daisy Razo RN (Nurse), MARIA A Kate (Anesthesia Staff) Patient Profile: This is a 69 year old male. Refer to note in patient chart for documentation of history and physical. Referring MD: CADENCE Amaro (Referring MD) Medicines: General Anesthesia, Lactated Ringer 1000 mL IV Complications: No immediate complications. Procedure: Pre-Anesthesia Assessment: - Prior to the procedure, a History and Physical was performed, and patient medications and allergies were reviewed. The patient is competent. The risks and benefits of the procedure and the sedation options and risks were discussed with the patient. All questions were answered and informed consent was obtained. Patient identification and proposed procedure were verified by the physician, the nurse, the anesthesiologist, the music executive and the veterinary surgery technician in the procedure room. Mental Status Examination: normal. Airway Examination: Mallampati Class II (the uvula but not tonsillar pillars visualized). Respiratory Examination: clear to auscultation. CV Examination: normal. Prophylactic Antibiotics: The patient does not require prophylactic antibiotics. Prior Anticoagulants: The patient has taken no anticoagulant or antiplatelet agents. ASA Grade Assessment: III - A patient with severe systemic disease. After reviewing the risks and benefits, the patient was deemed in satisfactory condition to undergo the procedure. The anesthesia plan was to use general anesthesia. Immediately prior to administration of medications, the patient was re-assessed for adequacy to receive sedatives. The heart rate, respiratory rate, oxygen saturations, blood pressure, adequacy of pulmonary ventilation, and response to care were monitored throughout the procedure. The physical status of the patient was re-assessed after the procedure. After obtaining informed consent, the scope was passed under direct vision. Throughout the procedure, the patient's blood pressure, pulse, and oxygen saturations were monitored continuously. The [id number] was introduced through the mouth, and used to inject contrast into and used to inject contrast into the bile duct. The ERCP was accomplished without difficulty. The patient tolerated the procedure well. Findings: A biliary stent was visible on the student truck driver film. The esophagus was successfully intubated under direct vision without detailed examination of the pharynx, larynx, and associated structures, and upper GI tract. The upper GI tract was grossly normal. The major papilla was adjacent to a diverticulum. A biliary sphincterotomy had been performed. The sphincterotomy appeared open. One plastic biliary stent originating in the biliary tree was emerging from the major papilla. The stent was partially occluded. One stent was removed from the biliary tree using a snare. A 0.035 inch x 260 cm straight Dreamwire was passed into the biliary tree. The 12 mm balloon was passed over the guidewire and the bile duct was then deeply cannulated. Contrast was injected. I personally interpreted the bile duct images. Ductal flow of contrast was adequate. Image quality was adequate. Contrast extended to the entire biliary tree. The upper third of the main bile duct and left and right hepatic ducts and all intrahepatic branches (more content not included)... LAB, [facility] GLUCOSE POCon 02-04-2025 Glucose [Mass/Vol] 229 mg/dL High 70 - 179 mg/dL [facility] Interpretation and review of laboratory results Abnormal [facility] POC Sample Type CAPBL [facility] Test performed at ad dress of the patient encounter. [facility] Glucose [Mass/Vol] 273 mg/dL High 70 - 179 mg/dL [facility] Interpretation and review of laboratory results Abnormal [facility] POC Sample Type VENO [facility] Test performed at ad dress of the patient encounter. [facility] No Panel Informationon 02-04 Radiology Study observation (narrative) [facility] SURG PATH REQUESTon 02-05-20 Case Report [facility] Comment on above: Result Comment: Surg ical Pathology Report Case: [id number] Authorizing Provider: Baldomero Clemons MD Collected: 02/04/2025 01:58 PM Ordering Location: [facility] Received: 02/04/2025 04:03 PM Pathologist: Zuleima Pierson MD Specimen: TISSUE BIOPSY, FNB Pancreatic head mass Performed By: #### S URGP #### [facility] (DEFAULT) [address] [place] [address] Clinical History Bile duct obstructio n [K83.1]. Medical History: Type 2 diabetes mellitus. Cataracts, bilateral. Bile duct obstruction. Normal [facility] Comment on above: Performed By: #### S URGP #### [facility] (DEFAULT) [address] [place] [address] Gross Description Normal [facility] Comment on above: Result Comment: The specimen is received in one properly labeled container with the patient's name and accession number. A. The specimen is designated FNB pancreatic head mass and consists of four pale anna, friable soft tissue cores ranging in length from 0.3 cm up to 0.5 cm and with an average diameter of 0.1 cm. Also consists of a 0.8 x 0.6 x 0.3 cm aggregate of friable soft tissue fragments and dark red blood clot. TE 2 Cassettes: A1, cores A2, aggregate Lab Use Only: JobID [id number] Grosser for this case was: Jacquie Arriaza Performed By: #### S URGP #### [facility] (DEFAULT) [address] [place] [address] Microscopic Description Normal [facility] Comment on above: Result Comment: A mi croscopic examination was performed. All controls show appropriate reactivity. All immunohistochemistry (IHC), in situ hybridization (HEBER), and histochemical tests were developed by and are performed at the [facility] Clinical Laboratory, Histology and IHC Lab, [address] [place] [address]. All Immunofluorescent (IF) tests were developed by and are performed at the [facility] Laboratory, Renal Division, [address] [place] [address]. All tests reported here, except for PD-L1, have not been cleared by or approved by the [place] Food and Drug Administration (FDA). The laboratory is regulated under CLIA as qualified to perform high-complexity testing. The tests are used for clinical purposes. They should not be regarded as investigational or for research. Performed By: #### S URGP #### [facility] (DEFAULT) [address] [place] [address] Pathologic Diagnosis [facility] Comment on above: Result Comment: A. P ancreas, head, mass, fine needle biopsy: Fragments of adenocarcinoma Note: Small tissue fragments with desmoplastic stroma show occasional highly atypical glandular cells, consistent with pancreatico-biliary adenocarcinoma. The larger fragments show unremarkable pancreatic parenchyma. SMAD4 immunostain (A2) shows loss of expression. Dr. Peewee Walker reviewed selected digitized images. Although diagnostic tissue is scant, ancillary testing can be performed on tissue block A1. at 1246 EDT Performed By: #### S URGP #### [facility] (DEFAULT) [address] [place] [address] Professional Interpretation Performed at: [facility] Comment on above: Result Comment: [facility] For Immediate Release to Patient's [facility]? Yes [address] [place] [address] Performed By: #### S URGP #### [facility] (DEFAULT) [address] [place] [id number] UPPER EUSon 02-04-2025 [facility] Gastroenterology Patient Name: Erick Gautam Procedure Date: 02/04/2025 1:25 PM Date of : 1955 Admit Type: Outpatient Age: 69 Room: ERCP [place] [address] Gender: Male Note Status: Finalized Attending MD: Baldomero Clemons MD, [id number] Procedure: Upper EUS Indications: Abnormal abdominal/pelvic CT scan, Elevated liver enzymes Providers: Baldomero Clemons MD (Doctor), Claudia Hobbs RN (Nurse), Daisy Razo RN (Nurse), MARIA A Kate (Anesthesia Staff) Referring MD: CADENCE Amaro (Referring MD) Medicines: General Anesthesia Complications: No immediate complications. Procedure: Pre-Anesthesia Assessment: - Prior to the procedure, a History and Physical was performed, and patient medications and allergies were reviewed. The patient is competent. The risks and benefits of the procedure and the sedation options and risks were discussed with the patient. All questions were answered and informed consent was obtained. Patient identification and proposed procedure were verified by the physician, the nurse, the anesthesiologist, the music executive and the veterinary surgery technician in the procedure room. Mental Status Examination: normal. Airway Examination: Mallampati Class II (the uvula but not tonsillar pillars visualized). Respiratory Examination: clear to auscultation. CV Examination: normal. Prophylactic Antibiotics: The patient does not require prophylactic antibiotics. Prior Anticoagulants: The patient has taken no anticoagulant or antiplatelet agents. ASA Grade Assessment: III - A patient with severe systemic disease. After reviewing the risks and benefits, the patient was deemed in satisfactory condition to undergo the procedure. The anesthesia plan was to use general anesthesia. Immediately prior to administration of medications, the patient was re-assessed for adequacy to receive sedatives. The heart rate, respiratory rate, oxygen saturations, blood pressure, adequacy of pulmonary ventilation, and response to care were monitored throughout the procedure. The physical status of the patient was re-assessed after the procedure. After obtaining informed consent, the endoscope was passed under direct vision. Throughout the procedure, the patient's blood pressure, pulse, and oxygen saturations were monitored continuously. The [id number] was introduced through the mouth, and advanced to the second part of duodenum. The upper EUS was accomplished without difficulty. The patient tolerated the procedure well. Findings: ENDOSCOPIC FINDING: : No gross lesions were noted in the entire esophagus. No gross lesions were noted in the entire examined stomach. A previously placed plastic biliary stent was seen in the ampulla. ENDOSONOGRAPHIC FINDING: : The esophagus, stomach and duodenum and adjacent structures were examined endosonographically. An irregular mass was identified in the pancreatic head. The mass was hypoechoic. The mass measured 25 mm by 18 mm in maximal cross-sectional diameter. The endosonographic borders were poorly-defined. An intact interface was seen between the mass and the celiac trunk and splenoportal confluence suggesting a lack of invasion. The remainder of the pancreas was examined. The endosonographic appearance of parenchyma and the upstream pancreatic duct indicated duct dilation, a maximum duct diameter of 8 mm and parenchymal atrophy. Fine needle biopsy was performed. Color Doppler imaging was utilized prior to needle puncture to confirm a lack of significant vascular structures within the needle path. Three passes were made with the 22 gauge Acquire biopsy needle using a transduodenal approach. A visible core of tissue was obtained. Final cytology results are pending. Two malignant-appearing lymph nodes we (more content not included)... LAB, [facility] CA 19-9on 01-27-2025 CA 19-9 255.35 U/mL High <=37.00 [facility] Comment on above: Result Comment: This test was performed on the [employer] IM Immunoassay platform which is a 2-step sandwich chemiluminescent immunoassay. It is important to note that assays using different manufacturers and/or methods may not be comparable. Performed By: #### C A199 #### [facility] (DEFAULT) [address] [place] [address] CBC AND ELECTRONIC DIFFon Basophils (Bld) [#/Vol] K/uL 0.00 - 0.09 K/uL [facility] Basophils/100 WBC (Bld) 0 % O [facility] Differential cell count method Nom (Bld) Electronic Differential [facility] Eosinophils (Bld) [#/Vol] 0.09 10*3/uL 0.00 - 0.48 K/uL [facility] Eosinophils/100 WBC (Bld) 2.4 % [facility] Erythrocyte distribution width (RBC) [Ratio] 13.2 % 10.9 - 14.3 % [facility] Hematocrit (Bld) [Volume fraction] 38.1 % Low 39.6 - 48.8 % [facility] Hemoglobin (Bld) [Mass/Vol] 13.1 g/dL Low 13.4 - 16.8 g/dL [facility] Immature granulocytes (Bld) [#/Vol] K/uL NINF - 0.07 K/uL [facility] Immature granulocytes/100 WBC (Bld) 0.3 % [facility] Interpretation and review of laboratory results Abnormal [facility] Lymphocytes (Bld) [#/Vol] 0.75 10*3/uL Low 0.83 - 3.57 K/uL [facility] Lymphocytes/100 WBC (Bld) 19.8 % [facility] MCH (RBC) [Entitic mass] 29.5 pg 26. 1 - 33.3 pg [facility] MCHC (RBC) [Mass/Vol] 34.4 g/dL 31.9 - 36.5 g/dL [facility] MCV (RBC) [Entitic vol] 85.8 fL 79.0 - 94.5 fL [facility] Monocytes (Bld) [#/Vol] 0.37 10*3/uL 0.24 - 0.93 K/uL [facility] Monocytes/100 WBC (Bld) 9.8 % [facility] Neutrophils (Bld) [#/Vol] 2.56 10*3/uL 1.57 - 6.19 K/uL [facility] Nucleated RBC/100 WBC (Bld) [Ratio] 0 [facility] Platelet mean volume (Bld) [Entitic vol] 9.1 fL 8.7 - 12.3 fL [facility] Platelets (Bld) [#/Vol] 233 10*3/uL 146 - 337 K/uL [facility] RBC (Bld) [#/Vol] 4.44 10*6/uL [facility] Segmented neutrophils/100 WBC (Bld) 67.7 % [facility] WBC (Bld) [#/Vol] 3.78 10*3/uL 3.73 - 10.10 K/uL [facility] Abs Baso Auto < Normal 0.00-0.09 [facility] Comment on above: Performed By: #### L [id number] #### [facility] (DEFAULT) [address] [place] [address] Basophils/100 WBC (Bld) 0.0 % Normal [facility] Comment on above: Performed By: #### L [id number] #### [facility] (DEFAULT) [address] [place] [address] DIFF STATUS Electronic Differential Normal [facility] Comment on above: Performed By: #### L [id number] #### [facility] (DEFAULT) [address] [place] [address] Eosinophils (Bld) [#/Vol] 0.09 10*3/uL Normal 0.00-0.48 [facility] Comment on above: Performed By: #### L [id number] #### [facility] (DEFAULT) [address] [address] Eosinophils/100 WBC (Bld) 2.4 % Normal [facility] Comment on above: Performed By: #### L [id number] #### [facility] (DEFAULT) [address] [address] Hematocrit (Bld) [Volume fraction] 38.1 % Low 39.6-48.8 [facility] Comment on above: Performed By: #### L [id number] #### [facility] (DEFAULT) [address] [address] Hemoglobin (Bld) [Mass/Vol] 13.1 g/dL Low 13.4-16.8 [facility] Comment on above: Performed By: #### L [id number] #### [facility] (DEFAULT) [address] [address] Immature Grans % 0.3 % Normal [facility] Comment on above: Performed By: #### L [id number] #### [facility] (DEFAULT) [address] [place] [address] Immature Grans Absolute < Normal <=0.07 [facility] Comment on above: Performed By: #### L [id number] #### [facility] (DEFAULT) [address] [place] [address] Lymphocytes (Bld) [#/Vol] 0.75 10*3/uL Low 0.83-3.57 [facility] Comment on above: Performed By: #### L [id number] #### [facility] (DEFAULT) [address] [place] [address] Lymphocytes/100 WBC (Bld) 19.8 % Normal [facility] Comment on above: Performed By: #### L [id number] #### [facility] (DEFAULT) [address] [place] [address] MCV (RBC) [Entitic vol] 85.8 fL Normal 79.0-94.5 [facility] Comment on above: Performed By: #### L [id number] #### [facility] (DEFAULT) [address] [place] [address] Mean Cell Hgb 29.5 pg Normal 26.1-33.3 [facility] Comment on above: Performed By: #### L [id number] #### [facility] (DEFAULT) [address] [place] [address] Mean Cell Hgb Conc 34.4 g/dL Normal 31.9-36.5 [facility] Comment on above: Performed By: #### L [id number] #### [facility] (DEFAULT) [address] [place] [address] Monocytes (Bld) [#/Vol] 0.37 10*3/uL Normal 0.24-0.93 [facility] Comment on above: Performed By: #### L [id number] #### [facility] (DEFAULT) [address] [place] [address] Monocytes/100 WBC (Bld) 9.8 % Normal [facility] Comment on above: Performed By: #### L [id number] #### [facility] (DEFAULT) [address] [address] Nucleated RBC 0.0 /100 WBC Normal <=0.2 [facility] Comment on above: Performed By: #### L [id number] #### [facility] (DEFAULT) [address] [address] Platelet mean volume (Bld) [Entitic vol] 9.1 fL Normal 8.7-12.3 [facility] Comment on above: Performed By: #### L [id number] #### [facility] (DEFAULT) [address] [address] Platelets (Bld) [#/Vol] 233 10*3/uL Normal 146-337 [facility] Comment on above: Performed By: #### L [id number] #### [facility] (DEFAULT) [address] [address] RBC (Bld) [#/Vol] 4.44 10*6/uL Normal 4.38-5.83 [facility] Comment on above: Performed By: #### L [id number] #### [facility] (DEFAULT) [address] [address] RBC Distribution 13.2 % Normal 10.9-14.3 [facility] Comment on above: Performed By: #### L [id number] #### [facility] (DEFAULT) [address] [address] Segs + Bands Auto 67.7 % Normal [facility] Comment on above: Performed By: #### L [id number] #### [facility] (DEFAULT) [address] [address] Segs + Bands,Absolute Auto 2.56 K/uL Normal 1.57-6.19 [facility] Comment on above: Performed By: #### L [id number] #### [facility] (DEFAULT) [address] [place] [address] WBC (Bld) [#/Vol] 3.78 10*3/uL Normal 3.73-10.10 [facility] Comment on above: Performed By: #### L [id number] #### [facility] (DEFAULT) [address] [place] [address] COMPREHENSIVE METABOLIC PANE Orestes 01-27-2025 Albumin [Mass/Vol] 3.9 g/dL Normal 3.5-5.0 [facility] Comment on above: Performed By: #### C MPN #### [facility] (DEFAULT) [address] [place] [address] ALP [Catalytic activity/Vol] 163 U/L High 32-126 [facility] Comment on above: Performed By: #### C MPN #### [facility] (DEFAULT) [address] [place] [address] ALT [Catalytic activity/Vol] 106 U/L High 10-52 [facility] Comment on above: Performed By: #### C MPN #### [facility] (DEFAULT) [address] [place] [address] Anion gap [Moles/Vol] 12 mmol/L Normal 7-17 [facility] Comment on above: Performed By: #### C MPN #### [facility] (DEFAULT) [address] [place] [address] AST [Catalytic activity/Vol] 56 U/L High 10-39 [facility] Comment on above: Performed By: #### C MPN #### [facility] (DEFAULT) [address] [place] [address] Bilirubin [Mass/Vol] 2.8 mg/dL High <1.5 [facility] Comment on above: Performed By: #### C MPN #### [facility] (DEFAULT) [address] [place] [address] Calcium [Mass/Vol] 9.4 mg/dL Normal 8.6-10.5 [facility] Comment on above: Performed By: #### C MPN #### [facility] (DEFAULT) [address] [place] [address] Chloride [Moles/Vol] 98 mmol/L Normal 98-108 [facility] Comment on above: Performed By: #### C MPN #### [facility] (DEFAULT) [address] [place] [address] CO2 [Moles/Vol] 28 mmol/L Normal 21-31 [facility] Comment on above: Performed By: #### C MPN #### [facility] (DEFAULT) [address] [place] [address] Creatinine [Mass/Vol] 0.66 mg/dL Low 0.70-1.30 [facility] Comment on above: Performed By: #### C MPN #### [facility] (DEFAULT) [address] [place] [address] eGFR, CKD-EPI, Male > Normal >=60 [facility] Comment on above: Result Comment: Repo rted eGFR is based on the CKD-EPI 2020 equation using creatinine, age, and sex. Performed By: #### C MPN #### [facility] (DEFAULT) [address] [place] [address] Glucose [Mass/Vol] 320 mg/dL High Nonfastin g : 70-179 mg/dL; Fastin-99 [facility] Comment on above: Performed By: #### C MPN #### [facility] (DEFAULT) [address] [place] [address] Osmolality [Osmolality] 299 mosm/kg Normal 278-305 [facility] Comment on above: Performed By: #### C MPN #### [facility] (DEFAULT) [address] [address] Potassium [Moles/Vol] 3.9 mmol/L Normal 3.5-5.0 [facility] Comment on above: Performed By: #### C MPN #### [facility] (DEFAULT) [address] [place] [address] Protein [Mass/Vol] 7.1 g/dL Normal 6.4-8.3 [facility] Comment on above: Performed By: #### C MPN #### [facility] (DEFAULT) [address] [place] [address] Sodium [Moles/Vol] 134 mmol/L Low 135-145 [facility] Comment on above: Performed By: #### C MPN #### [facility] (DEFAULT) [address] [place] [address] Urea nitrogen [Mass/Vol] 23 mg/dL Normal 7-25 [facility] Comment on above: Performed By: #### C MPN #### [facility] (DEFAULT) [address] [place] [address] Urea nitrogen/Creatinine [Mass ratio] 35 mg/mg Normal [facility] Comment on above: Performed By: #### C MPN #### [facility] (DEFAULT) [address] [address] Laboratory - Chemistry and C hemistry - challengeon 01-27-2025 Cancer Ag 19-9 Qn 255.35 [arb'U]/mL High NINF - 37.00 U/mL [facility] Comment on above: This test was perfor med on the [employer] Immunoassay platform which is a 2-step sandwich chemiluminescent immunoassay. It is important to note that assays using different manufacturers and/or methods may not be comparable. Albumin [Mass/Vol] 3.9 g/dL 3.5 - 5.0 g/dL [facility] ALP [Catalytic activity/Vol] 163 U/L High 32 - 126 U/L [facility] ALT [Catalytic activity/Vol] 106 U/L High 10 - 52 U/L [facility] Anion gap [Moles/Vol] 12 mmol/L 7 - 17 mmol/L [facility] AST [Catalytic activity/Vol] 56 U/L High 10 - 39 U/L [facility] Bilirubin [Mass/Vol] 2.8 mg/dL High NINF - 1.5 mg/dL [facility] Calcium [Mass/Vol] 9.4 mg/dL 8.6 - 10. 5 mg/dL [facility] Chloride [Moles/Vol] 98 mmol/L 98 - 10 8 mmol/L [facility] CO2 [Moles/Vol] 28 mmol/L 21 - 31 mmol/L [facility] Creatinine [Mass/Vol] 0.66 mg/dL Low 0.70 - 1.30 mg/dL [facility] Glucose [Mass/Vol] 320 mg/dL High 70 - 179 mg/dL [facility] Osmolality Calc [Osmolality] 299 [facility] Potassium [Moles/Vol] 3.9 mmol/L 3.5 - 5.0 mmol/L [facility] Protein [Mass/Vol] 7.1 g/dL 6.4 - 8.3 g/dL [facility] Sodium [Moles/Vol] 134 mmol/L Low 135 - 145 mmol/L [facility] Urea nitrogen [Mass/Vol] 23 mg/dL 7 - 25 mg/dL [facility] Urea nitrogen/Creatinine [Mass ratio] 35 mg/mg [facility] Laboratory - Coagulationon 0 01-27-2025 aPTT Coag (PPP) [Time] 26.8 s [facility] INR Coag (Bld) [Relative time] 1 {INR} 0.9 - 1.1 [facility] PT Coag (PPP) [Time] 12.7 s [facility] No Panel Informationon 01-27 Interpretation and review of laboratory results Abnormal [facility] eGFR, CKD-EPI, Male - PINF [facility] Comment on above: Reported eGFR is bas ed on the CKD-EPI 2020 equation using creatinine, age, and sex. Interpretation and review of laboratory results Abnormal [facility] Interpretation and review of laboratory results Normal [facility] PT,INR,PTTon 01-27-2025 aPTT Coag (Bld) [Time] 26.8 s Normal 24.0-34.3 [facility] Comment on above: Performed By: #### P TPTT #### [facility] (DEFAULT) [address] [place] [address] INR Coag (PPP) [Relative time] 1.0 {INR} Normal 0.9-1.1 [facility] Comment on above: Performed By: #### P TPTT #### [facility] (DEFAULT) [address] [place] [address] PT Coag (PPP) [Time] 12.7 s Normal 11.9-14.2 [facility] Comment on above: Performed By: #### P TPTT #### [facility] (DEFAULT) [address] [place] [address] Absolute lymphocyte countOrd ered By: Petra Sawyer on 01-20-2025 Lymphocytes Auto (Unsp spec) [#/Vol] 0.94 10*3/uL 0.83-4.51 [facility] Absolute neutrophil countOrd ered By: Petra Sawyer on 01-20-2025 Neutrophils (Bld) [#/Vol] 3.2 10*3/uL 2.0-7.7 [facility] Anion gap in Serum or Plasma Ordered By: Petra Sawyer on 01-20-2025 Anion gap [Moles/Vol] 10 mmol/L 5-15 [facility] Automated lymphocyte count a s percentage of total leukocytesOrdered By: Petra Sawyer on 01-20-2025 Lymphocytes/100 WBC Auto (Unsp spec) 20.1 % 19-41 [facility] BUN/creatinine ratioOrdered By: Petra Sawyer on 01-20-2025 Urea nitrogen/Creatinine [Mass ratio] 26.5 mg/mg High 10-20 [facility] Basophil percentageOrdered B y: Petra Sawyer on 01-20-2025 Basophils/100 WBC (Bld) 0.4 % 0-1 [facility] Bilirubin directOrdered By: Petra Sawyer on 01-20-2025 Bilirubin.direct [Mass/Vol] 2.88 mg/dL High 0.00-0.30 [facility] Bilirubin, Directon 01-21-20 Bilirubin.direct [Mass/Vol] 2.88 mg/dL High 0.00-0.30 [facility] Comment on above: Performed By: #### L 400.0001 #### [facility] Laboratory [address] [place], [address] Bilirubin, totalOrdered By: Petra Sawyer on 01-20-2025 Bilirubin [Mass/Vol] 3.95 mg/dL High 0.00-1.30 [facility] CBC W/Diff, Automatedon Absolute Lymph 0.94 X10 3/uL Normal 0.83-4.51 [facility] Comment on above: Performed By: #### L 400.0001 #### [facility] [address] [place], [address] Absolute Neut 3.2 X10 3/uL Normal 2.0-7.7 [facility] Comment on above: Performed By: #### L 400.0001 #### [facility] [address] [place], [address] Basophils/100 WBC (Bld) 0.4 % Normal 0-1 [facility] Comment on above: Performed By: #### L [id number] #### [facility] [address] [place], [address] Eosinophils/100 WBC (Bld) 1.5 % Normal 0-5 [facility] Comment on above: Performed By: #### L 400.0001 #### [facility] [address] [place], [address] Erythrocyte distribution width (RBC) [Ratio] 13.5 % Normal 11.6-14.6 [facility] Comment on above: Performed By: #### L 400.0001 #### [facility] [address] [place], [address] Hematocrit (Bld) [Volume fraction] 41.9 % Normal 40-54 [facility] Comment on above: Performed By: #### L 400.0001 #### [facility] [address] [place], [address] Hemoglobin (Bld) [Mass/Vol] 14.1 g/dL Normal 13.0-16.5 [facility] Comment on above: Performed By: #### L 400.0001 #### [facility] [address] [place], [address] IG% 0.200 Normal 0.0-0.9 [facility] Comment on above: Result Comment: IG% - Immature Granulocytes (promyelocytes, myelocytes and metamyelocytes) > 1% indicates that a LEFT SHIFT is Present. Performed By: #### L 400.0001 #### [facility] [address] [place], [address] Lymphocytes/100 WBC (Bld) 20.1 % Normal 19-41 [facility] Comment on above: Performed By: #### L 400.0001 #### [facility] [address] [place], [address] MCH (RBC) [Entitic mass] 29.6 pg Normal 27.0-32.0 [facility] Comment on above: Performed By: #### L 400.0001 #### [facility] [address] [place], [address] MCHC (RBC) [Mass/Vol] 33.7 g/dL Normal 32-36 [facility] Comment on above: Performed By: #### L 400.0001 #### [facility] [address] [place], [address] MCV (RBC) [Entitic vol] 87.8 fL Normal 80-94 [facility] Comment on above: Performed By: #### L [id number] #### [facility] [address] [place], [address] Monocytes/100 WBC (Bld) 8.6 % Normal 0-10 [facility] Comment on above: Performed By: #### L 400.0001 #### [facility] [address] [place], [address] Neutrophils/100 WBC (Bld) 69.2 % Normal 47-70 [facility] Comment on above: Performed By: #### L [id number] #### [facility] [address] [place], [address] Nucleated RBC (Bld) [#/Vol] 0 10*3/uL Normal 0-5 [facility] Comment on above: Performed By: #### L 400.0001 #### [facility] [address] [place], [address] Platelet mean volume (Bld) [Entitic vol] 9.8 fL Normal 6.2-12.0 [facility] Comment on above: Performed By: #### L 400.0001 #### [facility] [address] [place], [address] Platelets (Bld) [#/Vol] 267 10*3/uL Normal 150-450 [facility] Comment on above: Performed By: #### L 400.0001 #### [facility] [address] [place], [address] RBC (Bld) [#/Vol] 4.77 10*6/uL Normal 4.6-6.2 [facility] Comment on above: Performed By: #### L 400.0001 #### [facility] [address] [place], [address] RDW SD 43.9 fl Normal 35.1-43.9 [facility] Comment on above: Performed By: #### L 400.0001 #### [facility] [address] [place], [address] WBC (Bld) [#/Vol] 4.7 10*3/uL Normal 4.4-11.0 [facility] Comment on above: Performed By: #### L 400.0001 #### [facility] [address] [place], [address] Carbon dioxide, total [Moles /volume] in Central venous bloodOrdered By: Petra Sawyer on 01-20-2025 CO2 [Moles/Vol] 25.8 mmol/L 21.0-32.0 [facility] Chloride assayOrdered By: Yovani Sawyer on 01-20-2025 Chloride [Moles/Vol] 97 mmol/L Low 98-108 [facility] Comprehensive Metabolic Prof ilon 01-20-2025 Albumin [Mass/Vol] 3.9 g/dL Normal 3.4-4.8 [facility] Comment on above: Performed By: #### L 400.0001 #### [facility] [address] [place], [address] Albumin/Globulin [Mass ratio] 1.2 {ratio} Normal 0.9-2.4 [facility] Comment on above: Performed By: #### L 400.0001 #### [facility] [address] [place], [address] ALK PHOS 230 U/L High 40-129 [facility] Comment on above: Performed By: #### L [id number] #### [facility] [address] [place], [address] ALT [Catalytic activity/Vol] 76 U/L High <=46 [facility] Comment on above: Performed By: #### L [id number] #### [facility] [address] [place], [address] AST [Catalytic activity/Vol] 52 U/L High <=37 [facility] Comment on above: Performed By: #### L 400.0001 #### [facility] [address] [place], [address] Bilirubin [Mass/Vol] 3.95 mg/dL High 0.00-1.30 [facility] Comment on above: Performed By: #### L 400.0001 #### [facility] [address] [place], [address] BUN/CRE 26.5 RATIO High 10-20 [facility] Comment on above: Performed By: #### L 400.0001 #### [facility] [address] [place], [address] Calcium [Mass/Vol] 9.3 mg/dL Normal 7.6-11.0 [facility] Comment on above: Performed By: #### L [id number] #### [facility] [address] [place], [address] Chloride [Moles/Vol] 97 mmol/L Low 98-108 [facility] Comment on above: Performed By: #### L [id number] #### [facility] [address] [place], [address] CO2 [Moles/Vol] 25.8 mmol/L Normal 21.0-32.0 [facility] Comment on above: Performed By: #### L 400.0001 #### [facility] [address] [place], [address] Creatinine [Mass/Vol] 0.71 mg/dL Normal 0.70-1.20 [facility] Comment on above: Performed By: #### L [id number] #### [facility] [address] [place], [address] GAP 10 Normal 5-15 [facility] Comment on above: Performed By: #### L 400.0001 #### [facility] [address] [place], [address] GFR/1.73 sq M.predicted among non-blacks MDRD (S/P/Bld) [Vol rate/Area] 99 mL/min/{1.73_m2} Normal >60 [facility] Comment on above: Result Comment: mL/m in/1.73m2 CKD-EPI Creatinine Equation (2020) Performed By: #### L 400.0001 #### [facility] [address] [place], [address] Globulin (S) [Mass/Vol] 3.2 g/dL Normal 2.2-4.2 [facility] Comment on above: Performed By: #### L 400.0001 #### [facility] [address] [place], [address] Glucose [Mass/Vol] 296 mg/dL High 70-99 [facility] Comment on above: Performed By: #### L 400.0001 #### [facility] [address] [place], [address] Potassium [Moles/Vol] 4.5 mmol/L Normal 3.3-5.1 [facility] Comment on above: Performed By: #### L 400.0001 #### [facility] [address] [place], [address] Sodium [Moles/Vol] 133 mmol/L Normal 133-145 [facility] Comment on above: Performed By: #### L 400.0001 #### [facility] [address] [place], [address] T PROT 7.1 g/dL Normal 5.9-8.4 [facility] Comment on above: Performed By: #### L 400.0001 #### [facility] [address] [place], [address] Urea nitrogen [Mass/Vol] 19 mg/dL Normal 4-19 [facility] Comment on above: Performed By: #### L 400.0001 #### [facility] [address] [place], [address] Eosinophil percentageOrdered By: Petra Sawyer on 01-20-2025 Eosinophils/100 WBC (Bld) 1.5 % 0-5 [facility] Erythrocyte distribution wid th ratioOrdered By: Petra Sawyer on 01-20-2025 Erythrocyte distribution width (RBC) [Ratio] 13.5 % 11.6-14.6 [facility] Erythrocyte distribution wid th standard deviationOrdered By: Petra Sawyer on 01-20-2025 Erythrocyte distribution width (RBC) [Ratio] 43.9 fl 35.1-43.9 [facility] Glomerular filtration rate ( GFR) estimation/1.73 sq m using serum, plasma, or whole bOrdered By: Petra Sawyer on 01-20-2025 GFR/1.73 sq M.predicted among non-blacks MDRD (S/P/Bld) [Vol rate/Area] 99 mL/min/{1.73_m2} >60 [facility] Comment on above: mL/min/1.73m2 CKD-EP I Creatinine Equation (2020) Hematocrit Auto (Bld) [Volum e fraction]Or[facility] By: [facility] on 01-20-2025 Hematocrit (Bld) [Volume fraction] 41.9 % 40-54 [facility] Hemoglobin measurementOrdere d By: Petra Sawyer on 01-20-2025 Hemoglobin (Bld) [Mass/Vol] 14.1 g/dL 13.0-16.5 [facility] Immature granulocytes/100 WB C Auto (Bld)Ordered By: Petra Sawyer on 01-20-2025 Immature granulocytes/100 WBC (Bld) 0.200 % 0.0-0.9 [facility] Comment on above: IG% - Immature Granu locytes (promyelocytes, myelocytes and metamyelocytes) > 1% indicates that a LEFT SHIFT is Present. Laboratory - Chemistry and C hemistry - challengeOrdered By: Petra Sawyer on 01-20-2025 AST [Catalytic activity/Vol] 52 U/L High <38 [facility] MCV (mean corpuscular volume ) determinationOrdered By: Petra Sawyer on 01-20-2025 MCV (RBC) [Entitic vol] 87.8 fL 80-94 [facility] Mean corpuscular hemoglobin (MCH) determinationOrdered By: Petra Sawyer on 01-20-2025 MCH (RBC) [Entitic mass] 29.6 pg 27.0-32.0 [facility] Mean corpuscular hemoglobin concentration (MCHC) determinationOrdered By: Petra Sawyer on 01-20-2025 MCHC (RBC) [Mass/Vol] 33.7 g/dL 32-36 [facility] Mean platelet volume determi nationOrdered By: Petra Sawyer on 01-20-2025 Platelet mean volume (Bld) [Entitic vol] 9.8 fL 6.2-12.0 [facility] Monocyte percentageOrdered B y: Petra Sawyer on 01-20-2025 Monocytes/100 WBC (Bld) 8.6 % 0-10 [facility] Neutrophil percentageOrdered By: Petra Sawyer on 01-20-2025 Neutrophils/100 WBC (Bld) 69.2 % 47-70 [facility] Nucleated red blood cell per centageOrdered By: Petra Sawyer on 01-20-2025 Nucleated RBC/100 WBC (Bld) [Ratio] 0 % 0-5 [facility] Oncology Visit Reporton Oncology Visit Report [facility] [place] [facility] [address] [place] [id number] OFFICE VISIT Date of Service: 01/20/25 1003 MR#: [id number] Acct: [id number] Name: ERICK GAUTAM Rep #: [id number] : 1955 From: Petra Sawyer MD Age/Sex: 69/M Location: [facility] [place] Status: Signed HPI Subjective Date of Service 01/20/25 Chief Complaint Abdominal pain History of Present Illness 69-year-old gentleman who presented with 1 month history of progressively increasing right upper quadrant pain, anorexia, 40 pound weight loss and jaundice. January 05, 2025 abdomen ultrasound: IMPRESSION: Hepatomegaly and diffuse fatty infiltration of the liver. Distended gallbladder with positive Jones's sign and small amount of pericholecystic fluid. Acalculous cholecystitis should be ruled out. Dilated common bile duct. January 12, 2025 CT abdomen and pelvis: IMPRESSION: There is a hypervascular lesion in [...] 2.5 cm uncomplicated fat containing umbilical hernia. January 12, 2025 MRCP: IMPRESSION: Findings consistent with an isointense filling defect in the mid aspect of the common bile duct suspicious for a soft tissue mass, unlikely common bile duct stone. Associated intrahepatic and extrahepatic blade ductal dilatation as well as dilatation of the gallbladder and pancreatic duct. Left renal cyst. 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 The esophagus was successfully intubated under direct vision. The scope was advanced to a normal major papilla in the descending duodenum without detailed examination of the pharynx, larynx and associated structures, and upper GI tract. The upper GI tract was grossly normal. The bile duct was deeply cannulated with the short-nosed traction sphincterotome. Contrast was injected. I personally interpreted the bile duct images. Ductal flow of contrast was adequate. Image quality was adequate. Contrast extended to the entire biliary tree. Opacification of the entire opacified area and entire biliary tree was successful. The maximum diameter of the ducts was 10 mm. The middle third of the main bile duct contained a single localized stenosis 6 mm in length. The upper third of the main bile duct, common hepatic duct, hepatic duct bifurcation and left and right hepatic ducts and all intrahepatic branches were diffusely dilated, secondary to a stricture. The largest diameter was 12 mm. A long 0.025 inch Jagwire was passed into the biliary tree. A 5 mm biliary sphincterotomy was made with a traction (standard) sphincterotome using ERBE electrocautery. There was no post-sphincterotomy bleeding. The biliary tree was swept with a 12 mm balloon starting at the bifurcation, left intrahepatic duct(s) and right intrahepatic duct(s). Sludge was swept from the duct. All stones were removed. Cells for cytology were obtained by brushing in the middle third of the main bile duct. The bile duct was explored endoscopically using the SpyGlass direct visualization system. The SpyScope was advanced to the right intrahepatic duct(s). Visibility with the scope was good. The lumen of the middle third of the main bile duct was severely narrowed. The middle third of the main bile duct contained a single localized stenosis 6 mm in length. The middle third of the main bile duct was biopsied with a HubCastite miniature biopsy forceps for histology. One 10 Fr by 12 cm temporary stent was placed 5 cm into the common bile duct. Bile flowed through the stent. The stent was in good position. Impression: - Severely narrowed lumen in the middle third of the main bile duct visualized via SpyGlass. 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 - The upper third of the main bile duct, left and right hepati (more content not included)... Normal [facility] Platelet countOrdered By: Yovani Sawyer on 01-20-2025 Platelets (Bld) [#/Vol] 267 10*3/uL 150-450 [facility] Potassium measurement (mass/ volume)Ordered By: Petra Sawyer on 01-20-2025 Potassium (Unsp spec) [Mass/Vol] 4.5 mmol/L 3.3-5.1 [facility] RBC Auto (Bld) [#/Vol]Ordere d By: Petra Sawyer on 01-20-2025 RBC (Bld) [#/Vol] 4.77 10*6/uL 4.6-6.2 [facility] Serum creatinine measurement (mass/volume)Ordered By: Petra Sawyer on 01-20-2025 Creatinine [Mass/Vol] 0.71 mg/dL 0.70-1.20 [facility] Serum globulin measurementOr dered By: Petra Sawyer on 01-20-2025 Globulin (S) [Mass/Vol] 3.2 g/dL 2.2-4.2 [facility] Serum glucose measurement (m ass/volume)Ordered By: Petra Sawyer on 01-20-2025 Glucose [Mass/Vol] 296 mg/dL High 70-99 [facility] Serum or plasma alanine ordoñez otransferase (ALT) measurementOrdered By: Petra Sawyer on 01-20-2025 ALT [Catalytic activity/Vol] 76 U/L High <47 [facility] Serum or plasma albumin jenny urement (mass/volume)Ordered By: Petra Sawyer on 01-20-2025 Albumin [Mass/Vol] 3.9 g/dL 3.4-4.8 [facility] Serum or plasma albumin/glob ulin mass ratioOrdered By: Petra Sawyer on 01-20-2025 Albumin/Globulin [Mass ratio] 1.2 {ratio} 0.9-2.4 [facility] Serum or plasma alkaline mitzi sphatase measurementOrdered By: Petra Sawyer on 01-20-2025 ALP [Catalytic activity/Vol] 230 U/L High 40-129 [facility] Serum or plasma calcium jenny urement (mass/volume)Ordered By: Petra Sawyer on 01-20-2025 Calcium [Mass/Vol] 9.3 mg/dL 7.6-11.0 [facility] Serum or plasma urea nitroge n measurement (mass/volume)Ordered By: Petra Sawyer on 01-20-2025 Urea nitrogen [Mass/Vol] 19 mg/dL 4-19 [facility] Sodium levelOrdered By: Osman Sawyer on 01-20-2025 Sodium [Moles/Vol] 133 mmol/L 133-145 [facility] Total proteinOrdered By: Oswald Sawyer on 01-20-2025 Protein [Mass/Vol] 7.1 g/dL 5.9-8.4 [facility] White blood cell (WBC) count Ordered By: Petra Sawyer on 01-20-2025 WBC (Bld) [#/Vol] 4.7 10*3/uL 4.4-11.0 [facility] AFP, Tumor Markeron 01-17-20 25 AFP TUMOR ELIN < 1.8 Normal 0.0-8.4 [facility] Comment on above: Result Comment: [employer] Electrochemiluminescence Immunoassay (ECLIA) Values obtained with different assay methods or kits cannot be used interchangeably. Results cannot be interpreted as absolute evidence of the presence or absence of malignant disease. This test is not interpretable in females. Performed By: #### L 3300.0700, L101.9900, L3400.1500, L3300.1200, L501.6710, L3100.5020, L3100.5850, L504.2610, L3200.1100, L3200.0500 ####[facility] [address] [place], [place], [phone] ANCAon 01-16-2025 Atypical pANCA <1:20 Normal Neg:<1:20 [facility] Comment on above: Result Comment: Note : Specimen is icteric. The atypical pANCA pattern has been observed in a significant percentage of patients with ulcerative colitis, primary sclerosing cholangitis and autoimmune hepatitis. Performed By: #### L 3300.0700, L101.9900, L3400.1500, L3300.1200, L501.6710, L3100.5020, L3100.5850, L504.2610, L3200.1100, L3200.0500 ####[facility] [address] [place], [place], [id number] Cytoplasmic Ab <1:20 Normal Neg:<1:20 [facility] Comment on above: Result Comment: Note : Specimen is icteric. Performed By: #### L 3300.0700, L101.9900, L3400.1500, L3300.1200, L501.6710, L3100.5020, L3100.5850, L504.2610, L3200.1100, L3200.0500 ####[facility] [address] [place], [place], [phone] Perinuclear Ab. <1:20 Normal Neg:<1:20 [facility] Comment on above: Result Comment: Note : Specimen is icteric. The presence of positive fluorescence exhibiting P-ANCA or C-ANCA patterns alone is not specific for the diagnosis of Chito's Granulomatosis (WG) or microscopic polyangiitis. Decisions about treatment should not be based solely on ANCA IFA results. The [employer] ANCA [employer] Consensus recommends follow up testing of positive sera with both NC- 3 and MPO-ANCA enzyme immunoassays. As many as 5% serum samples are positive only by EIA. Ref. AM J Clin Pathol 1999;111:507-513. Performed By: #### L 3300.0700, L101.9900, L3400.1500, L3300.1200, L501.6710, L3100.5020, L3100.5850, L504.2610, L3200.1100, L3200.0500 ####[facility] [address] [place], [place], [phone] CMV Acute Antibody IgMon CMV Ab, IgM < 30.0 Normal 0.0-29.9 [facility] Comment on above: Result Comment: Nega tive <30.0 Equivocal 30.0 - 34.9 Positive >34.9 A positive result is generally indicative of acute infection, reactivation or persistent IgM production. Performed at: [address] [id number] Case Hardener: Dylan Osorio PhD, Phone: [phone] Performed at: [facility] [id number] Case Hardener: Jayde Casanova MD, Phone: [phone] Performed By: #### L 3300.0700, L101.9900, L3400.1500, L3300.1200, L501.6710, L3100.5020, L3100.5850, L504.2610, L3200.1100, L3200.0500 ####[facility] [address] [place], [address] Carbohydrate AG 19-9on 01-16 CA 19-9 328 U/mL High 0-35 [facility] Comment on above: Result Comment: [employer] Electrochemiluminescence Immunoassay (ECLIA) Values obtained with different assay methods or kits cannot be used interchangeably. Results cannot be interpreted as absolute evidence of the presence or absence of malignant disease. Performed By: #### L 3300.0700, L101.9900, L3400.1500, L3300.1200, L501.6710, L3100.5020, L3100.5850, L504.2610, L3200.1100, L3200.0500 #### [facility] [address] [place], [address] EBV Acute Prof IgG / IgMon 0 01-16-2025 EB Ab VCA, IgG > 600.0 High 0.0-17.9 [facility] Comment on above: Result Comment: Nega tive <18.0 Equivocal 18.0 - 21.9 Positive >21.9 Performed By: #### L 3300.0700, L101.9900, L3400.1500, L3300.1200, L501.6710, L3100.5020, L3100.5850, L504.2610, L3200.1100, L3200.0500 ####[facility] [address] [place], [address] EBV Ab VCA, IgM < 36.0 Normal 0.0-35.9 [facility] Comment on above: Result Comment: Nega tive <36.0 Equivocal 36.0 - 43.9 Positive >43.9 Performed By: #### L 3300.0700, L101.9900, L3400.1500, L3300.1200, L501.6710, L3100.5020, L3100.5850, L504.2610, L3200.1100, L3200.0500 ####[facility] [address] [place], [address] EBV NuAg Ab,IgG 155.0 U/mL High 0.0-17.9 [facility] Comment on above: Result Comment: Nega tive <18.0 Equivocal 18.0 - 21.9 Positive >21.9 Performed By: #### L 3300.0700, L101.9900, L3400.1500, L3300.1200, L501.6710, L3100.5020, L3100.5850, L504.2610, L3200.1100, L3200.0500 ####[facility] [address] [place], [address] INTERPRETATION Comment Normal . [facility] Comment on above: Result Comment: EBV Interpretation Chart Gonzalez: Antibody Present + Antibody Absent - Interpretation VCA-IgM VCA-IgG EBNA-IgG No previous infection/ - - - Susceptible Primary infection (new + + - or recent) Past Infection +or- + + See comment below* + - - *Results indicate infection with EBV at some time however cannot predict the timing of the infection since antibodies to EBNA usually develop after primary infection or, alternatively, approximately 5-10% of patients with EBV never develop antibodies to EBNA. Performed By: #### L 3300.0700, L101.9900, L3400.1500, L3300.1200, L501.6710, L3100.5020, L3100.5850, L504.2610, L3200.1100, L3200.0500 ####[facility] [address] [place], [address] IgG Subclasseson 01-16-2025 IgG, SUBCLASS 1 528 mg/dL Normal 248-810 [facility] Comment on above: Performed By: #### L 3300.0700, L101.9900, L3400.1500, L3300.1200, L501.6710, L3100.5020, L3100.5850, L504.2610, L3200.1100, L3200.0500 ####[facility] [address] [place], [address] IgG, SUBCLASS 2 287 mg/dL Normal 130-555 [facility] Comment on above: Performed By: #### L 3300.0700, L101.9900, L3400.1500, L3300.1200, L501.6710, L3100.5020, L3100.5850, L504.2610, L3200.1100, L3200.0500 ####[facility] [address] [place], [address] IgG, SUBCLASS 3 30 mg/dL Normal 15-102 [facility] Comment on above: Performed By: #### L 3300.0700, L101.9900, L3400.1500, L3300.1200, L501.6710, L3100.5020, L3100.5850, L504.2610, L3200.1100, L3200.0500 ####[facility] [address] [place], [address] IgG, SUBCLASS 4 51 mg/dL Normal 2-96 [facility] Comment on above: Performed By: #### L 3300.0700, L101.9900, L3400.1500, L3300.1200, L501.6710, L3100.5020, L3100.5850, L504.2610, L3200.1100, L3200.0500 ####[facility] [address] [place], [address] IGG,QUANT 1067 mg/dL Normal 603-1613 [facility] Comment on above: Performed By: #### L 3300.0700, L101.9900, L3400.1500, L3300.1200, L501.6710, L3100.5020, L3100.5850, L504.2610, L3200.1100, L3200.0500 ####[facility] [address] [place], [address] Immunoglobulins G/A/M/Neel IMMUNOGLOB A QN 204 mg/dL Normal 61-437 [facility] Comment on above: Performed By: #### L 3300.0700, L101.9900, L3400.1500, L3300.1200, L501.6710, L3100.5020, L3100.5850, L504.2610, L3200.1100, L3200.0500 ####[facility] [address] [place], [address] IMMUNOGLOB E QN 37 IU/mL Normal 6-495 [facility] Comment on above: Performed By: #### L 3300.0700, L101.9900, L3400.1500, L3300.1200, L501.6710, L3100.5020, L3100.5850, L504.2610, L3200.1100, L3200.0500 ####[facility] [address] [place], [address] IMMUNOGLOB M QN 79 mg/dL Normal 20-172 [facility] Comment on above: Performed By: #### L 3300.0700, L101.9900, L3400.1500, L3300.1200, L501.6710, L3100.5020, L3100.5850, L504.2610, L3200.1100, L3200.0500 ####[facility] [address] [place], [address] THANH Comprehensive Panelon ANTI-DNA (DS)AB <1 Normal 0-9 [facility] Comment on above: Result Comment: Note : Specimen is icteric. Negative <5 Equivocal 5 - 9 Positive >9 Performed By: #### L 6415.5460 #### [facility] [address] [place], [address] ANTI-SS-A < 0.2 Normal 0.0-0.9 [facility] Comment on above: Result Comment: Note : Specimen is icteric. Performed By: #### L 4777.5446 #### [facility] [address] [place], [address] ANTI-SS-B < 0.2 Normal 0.0-0.9 [facility] Comment on above: Result Comment: Note : Specimen is icteric. Performed By: #### L 3100.5440 #### [facility] [address] [place], [address] Bedside Glucoseon 01-14-2025 FINGERSTICK GLU 229 mg/dL High 74-106 [facility] Comment on above: Result Comment: YUKI GEMENT OF PATIENT CARE PER NURSING PROTOCOL Performed By: #### L 400.0001 #### [facility] [address] [place], [address] FINGERSTICK GLU 190 mg/dL High 74-106 [facility] Comment on above: Result Comment: YUKI GEMENT OF PATIENT CARE PER NURSING PROTOCOL Performed By: #### L 501.080 ####[facility] [address] [place], [address] Discharge Instructionon 12-20 Discharge Instruction [facility] Medical Records Department [address] [place] [address] Instructions for Home/Discharge Instructions 01/14/25 1042 MR#: [id number] Acct: [id number] Name: ERICK GAUTAM Rep #: [id number] : 1955 69 From: Elin Benites DO PCP: Dr. Belle Monk MD Status:ADM IN Discharge Instructions Diet Discharge Diet: 1800 Calorie Control Diet DC O2, CPAP, BIPAP needs Home O2 Discharge instructions: No Dressing / Incision Discharge Activity: Return to Normal Activity Weight Bearing Status: Full weight bearing Follow Up Care Test Results: Test results from this visit will be discussed in further detail at your follow-up appointment, if applicable. Discharge Plan Admission Admit Date/Time: 01/12/25 13:33 Primary Reason for Your Visit: obstructive jaundice Attending Provider: Elin Benites Primary Care Provider: Belle Monk Consulting Providers: Matilde Henry Discharge Orders/Prescriptions Prescriptions: Continued Januvia 25 mg tablet 25 mg PO QHS Referrals / Follow Up: Belle Monk MD [Primary Care Provider] - Petra Sawyer MD [Med Staff - Active Staff] - See Referral Note (stop by his office today to make an appointment for next week) Disposition Disposition (needs filled in before D/C Order can be placed): Home, Self Care 01/14/25 1056 Elin Benites DO CC: Dr. Belle Monk MD; Dr. Matilde Henry MD Signed Normal [facility] deOrdered By: Elin Benites on 01-14-2025 Glucose [Mass/Vol] 229 mg/dL High 74-106 [facility] Comment on above: MANAGEMENT OF LIGIA T CARE PER NURSING PROTOCOL Hepatitis Panel Acuteon 12-20 COMMENT Comment Normal . [facility] Comment on above: Result Comment: Not infected with HCV unless early or acute infection is suspected (which may be delayed in an immunocompromised individual), or other evidence exists to indicate HCV infection. Performed at: [facility] [address] [id number] Case Hardener: Dylan Osorio PhD, Phone: [phone] Performed By: #### L 400.0001 #### [facility] [address] [id number] HEP B CORE,IgM Negative Normal Negative [facility] Comment on above: Performed By: #### L 400.0001 #### [facility] [address] [facility] [address] HEP B SURF AG Negative Normal Negative [facility] Comment on above: Performed By: #### L 400.0001 #### [facility] [address] [facility] [address] [facility] [address] HEP C VIRUS AB Non-Reactive Normal Non Reactive [facility] Comment on above: Performed By: #### L 400.0001 #### [facility] [address] [facility]. [place] [id number] HEPATITIS A-IgM Negative Normal Negative [facility] Comment on above: Result Comment: A ne gative anti-HAV IgM result suggests no recent or current HAV infection. Performed By: #### L 400.0001 #### [facility] [address] [place] [id number] Absolute lymphocyte countOrd ered By: Matilde Henry on 01-13-2025 Lymphocytes Auto (Unsp spec) [#/Vol] 0.73 10*3/uL Low 0.83-4.51 [facility] Absolute neutrophil countOrd ered By: Matilde Henry on 01-13-2025 Neutrophils (Bld) [#/Vol] 3.1 10*3/uL 2.0-7.7 [facility] Anion gap in Serum or Plasma Ordered By: Matilde Henry on 01-13-2025 Anion gap [Moles/Vol] 12 mmol/L 5-15 [facility] Automated lymphocyte count a s percentage of total leukocytesOrdered By: Matilde Henry on 01-13-2025 Lymphocytes/100 WBC Auto (Unsp spec) 16.9 % Low 19-41 [facility] BUN/creatinine ratioOrdered By: Matilde Henry on 01-13-2025 Urea nitrogen/Creatinine [Mass ratio] 27.3 mg/mg High 10-20 [facility] Basophil percentageOrdered B y: Matilde Henry on 01-13-2025 Basophils/100 WBC (Bld) 0.2 % 0-1 [facility] Bedside Glucoseon 01-13-2025 FINGERSTICK GLU 251 mg/dL High [address] [facility] Comment on above: Result Comment: YUKI GEMENT OF PATIENT CARE PER NURSING PROTOCOL Performed By: #### L 501.080 #### [facility] [address] [facility] [address] FINGERSTICK GLU 237 mg/dL High [address] Comment on above: Result Comment: YUKI GEMENT OF PATIENT CARE PER NURSING PROTOCOL Performed By: #### L 501.080 ####[facility] [address] [facility] [address] FINGERSTICK GLU 222 mg/dL High [facility]106 [facility] Comment on above: Result Comment: YUKI GEMENT OF PATIENT CARE PER NURSING PROTOCOL Performed By: #### L 3100.5440 #### [facility] [address] [place], [address] FINGERSTICK GLU 240 mg/dL High 74-106 [facility] Comment on above: Result Comment: YUKI CHAPPELL OF PATIENT CARE PER NURSING PROTOCOL Performed By: #### L 3100.5440 #### [facility] [address] [place], [address] Bilirubin, totalOrdered By: Matilde Henry on 01-13-2025 Bilirubin [Mass/Vol] 12.20 mg/dL High 0.00-1.30 [facility] CBC W/Diff, Automatedon 12-20 Absolute Lymph 0.73 X10 3/uL Low 0.83-4.51 [facility] Comment on above: Performed By: #### L 501.080 #### [facility] [address] [place], [address] Absolute Neut 3.1 X10 3/uL Normal 2.0-7.7 [facility] Comment on above: Performed By: #### L 501.080 #### [facility] [address] [place], [address] Basophils/100 WBC (Bld) 0.2 % Normal 0-1 [facility] Comment on above: Performed By: #### L 501.080 #### [facility] [address] [place], [address] Eosinophils/100 WBC (Bld) 1.8 % Normal 0-5 [facility] Comment on above: Performed By: #### L 501.080 #### [facility] [address] [place], [address] Erythrocyte distribution width (RBC) [Ratio] 14.1 % Normal 11.6-14.6 [facility] Comment on above: Performed By: #### L 501.080 #### [facility] [address] [place], [address] Hematocrit (Bld) [Volume fraction] 38.5 % Low 40-54 [facility] Comment on above: Performed By: #### L 501.080 #### [facility] [address] [place], [address] Hemoglobin (Bld) [Mass/Vol] 13.5 g/dL Normal 13.0-16.5 [facility] Comment on above: Performed By: #### L 501.080 #### [facility] [address] [place], [address] IG% 0.500 Normal 0.0-0.9 [facility] Comment on above: Result Comment: IG% - Immature Granulocytes (promyelocytes, myelocytes and metamyelocytes) > 1% indicates that a LEFT SHIFT is Present. Performed By: #### L 501.080 #### [facility] [address] [place], [address] Lymphocytes/100 WBC (Bld) 16.9 % Low 19-41 [facility] Comment on above: Performed By: #### L 501.080 #### [facility] [address] [place], [address] MCH (RBC) [Entitic mass] 29.9 pg Normal 27.0-32.0 [facility] Comment on above: Performed By: #### L 501.080 #### [facility] [address] [place], [address] MCHC (RBC) [Mass/Vol] 35.1 g/dL Normal 32-36 [facility] Comment on above: Performed By: #### L 501.080 #### [facility] [address] [place], [address] MCV (RBC) [Entitic vol] 85.2 fL Normal 80-94 [facility] Comment on above: Performed By: #### L 501.080 #### [facility] [address] [place], [address] Monocytes/100 WBC (Bld) 9.9 % Normal 0-10 [facility] Comment on above: Performed By: #### L 501.080 #### [facility] [address] [place], [address] Neutrophils/100 WBC (Bld) 70.7 % High 47-70 [facility] Comment on above: Performed By: #### L 501.080 #### [facility] [address] [place], [address] Nucleated RBC (Bld) [#/Vol] 0 10*3/uL Normal 0-5 [facility] Comment on above: Performed By: #### L 501.080 #### [facility] [address] [place], [address] Platelet mean volume (Bld) [Entitic vol] 10.1 fL Normal 6.2-12.0 [facility] Comment on above: Performed By: #### L 501.080 #### [facility] [address] [place], [address] Platelets (Bld) [#/Vol] 233 10*3/uL Normal 150-450 [facility] Comment on above: Performed By: #### L 501.080 #### [facility] [address] [place], [address] RBC (Bld) [#/Vol] 4.52 10*6/uL Low 4.6-6.2 [facility] Comment on above: Performed By: #### L 501.080 #### [facility] [address] [place], [address] RDW SD 43.9 fl Normal 35.1-43.9 [facility] Comment on above: Performed By: #### L 501.080 #### [facility] [address] [place], [address] WBC (Bld) [#/Vol] 4.3 10*3/uL Low 4.4-11.0 [facility] Comment on above: Performed By: #### L 501.080 #### [facility] [address] [place], [address] Carbon dioxide, total [Moles /volume] in Central venous bloodOrdered By: Matilde Henry on 01-13-2025 CO2 [Moles/Vol] 22.0 mmol/L 21.0-32.0 [facility] Chloride assayOrdered By: Aaron Henry on 01-13-2025 Chloride [Moles/Vol] 102 mmol/L 98-108 [facility] Comprehensive Metabolic Prof ilon 01-13-2025 Albumin [Mass/Vol] 3.6 g/dL Normal 3.4-4.8 [facility] Comment on above: Performed By: #### L 501.080 #### [facility] [address] [place], [address] Albumin/Globulin [Mass ratio] 1.4 {ratio} Normal 0.9-2.4 [facility] Comment on above: Performed By: #### L 501.080 #### [facility] [address] [place] [place], [address] ALK PHOS 267 U/L High 40-129 [facility] Comment on above: Performed By: #### L 501.080 #### [facility] [address] [place], [address] ALT [Catalytic activity/Vol] 94 U/L High <=46 [facility] Comment on above: Performed By: #### L 501.080 #### [facility] [address] [place], [address] AST [Catalytic activity/Vol] 50 U/L High <=37 [facility] Comment on above: Performed By: #### L 501.080 #### [facility] [address] [place], [address] Bilirubin [Mass/Vol] 12.20 mg/dL High 0.00-1.30 [facility] Comment on above: Performed By: #### L 501.080 #### [facility] [address] [place], [address] BUN/CRE 27.3 RATIO High 10-20 [facility] Comment on above: Performed By: #### L 501.080 #### [facility] [address] [place], [address] Calcium [Mass/Vol] 9.1 mg/dL Normal 7.6-11.0 [facility] Comment on above: Performed By: #### L 501.080 #### [facility] [address] [place], [address] Chloride [Moles/Vol] 102 mmol/L Normal 98-108 [facility] Comment on above: Performed By: #### L 501.080 #### [facility] [address] [place], [address] CO2 [Moles/Vol] 22.0 mmol/L Normal 21.0-32.0 [facility] Comment on above: Performed By: #### L 501.080 #### [facility] [address] [place], [address] Creatinine [Mass/Vol] 0.71 mg/dL Normal 0.70-1.20 [facility] Comment on above: Result Comment: Icte miky present, Results may be affected. Performed By: #### L 501.080 #### [facility] [address] [place], [address] ECRCL 89.98 ml/min Normal 50-250 [facility] Comment on above: Performed By: #### L 501.080 #### [facility] [address] [place], [address] GAP 12 Normal 5-15 [facility] Comment on above: Performed By: #### L 501.080 #### [facility] [address] [place], [address] GFR/1.73 sq M.predicted among non-blacks MDRD (S/P/Bld) [Vol rate/Area] 99 mL/min/{1.73_m2} Normal >60 [facility] Comment on above: Result Comment: mL/m in/1.73m2 CKD-EPI Creatinine Equation (2020) Performed By: #### L 501.080 #### [facility] [address] [place], [address] Globulin (S) [Mass/Vol] 2.5 g/dL Normal 2.2-4.2 [facility] Comment on above: Performed By: #### L 501.080 #### [facility] [address] [place], [address] Glucose [Mass/Vol] 258 mg/dL High 70-99 [facility] Comment on above: Performed By: #### L 501.080 #### [facility] [address] [place], [address] Potassium [Moles/Vol] 4.2 mmol/L Normal 3.3-5.1 [facility] Comment on above: Performed By: #### L 501.080 #### [facility] [address] [place], [address] Sodium [Moles/Vol] 136 mmol/L Normal 133-145 [facility] Comment on above: Performed By: #### L 501.080 #### [facility] [address] [place], [address] T PROT 6.1 g/dL Normal 5.9-8.4 [facility] Comment on above: Performed By: #### L 501.080 #### [facility] [address] [place], [address] Urea nitrogen [Mass/Vol] 20 mg/dL High 4- [facility] Comment on above: Performed By: #### L 501.080 #### [facility] [address] [place], [address] ERCP Biliary/Pancreason 12-20 ERCP Biliary/Pancreas [facility] Imaging Services [address] [place] [address] ERCP Biliary/Pancreas MR#: [id number] Acct: [id number] Name: ERICK GAUTAM Rep #: [id number] : 1955 M 69 From: Sam Acosta PCP: Dr. Belle Monk MD Status: ADM IN Study: ERCP Biliary/Pancreas Date of Exam: 01/13/25 Exam# [id number] Ordering Dr: Trevon Webber DO PROCEDURE: ERCP BILIARY/PANCREAS; O.R. FLUORO FOR C-ARM 01/13/2025 REASON FOR EXAM: ERCP TECHNIQUE: Intraoperative fluoroscopy for ERCP. 7 fluoroscopic images were also obtained. Fluoroscopy time: 67.1 seconds. 21.38 mGy dose. RAD/ERCP Biliary/Pancreas IMPRESSION: Intraoperative fluoroscopy for ERCP. 7 fluoroscopic images were also obtained. Reading Location: [place] [address] CC: Dr. Belle Monk MD; Trevon Webber DO Nurse Consultant: Signed Normal [facility] ERCP Reporton 01-13-2025 ERCP Report [facility] Medical Records Department [address] [place] [address] ERCP Report MR#: [id number] Acct: [id number] Name: ERICK GAUTAM Rep #: [id number] : 1955 69 From: Trevon Webber DO PCP: Dr. 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 Refer to note in patient chart for documentation of history and physical. Patient has symptoms of acute right upper quadrant abdominal pain and acute jaundice. This patient has no history of previous ERCP. This patient has no history of surgical alteration of the upper digestive tract anatomy. Complications: No immediate complications. Procedure: Pre-Anesthesia Assessment: - Prior to the procedure, a History and Physical was performed, and patient medications and allergies were reviewed. The patient is competent. The risks and benefits of the procedure and the sedation options and risks were discussed with the patient. All questions were answered and informed consent was obtained. Patient identification and proposed procedure were verified by the physician. Prophylactic Antibiotics: The patient does not require prophylactic antibiotics. Prior Anticoagulants: The patient has taken no anticoagulant or antiplatelet agents except for NSAID medication. ASA Grade Assessment: III - A patient with severe systemic disease. After reviewing the risks and benefits, the patient was deemed in satisfactory condition to undergo the procedure. The anesthesia plan was to use monitored anesthesia care (MAC). Immediately prior to administration of medications, the patient was re-assessed for adequacy to receive sedatives. The heart rate, respiratory rate, oxygen saturations, blood pressure, adequacy of pulmonary ventilation, and response to care were monitored throughout the procedure. The physical status of the patient was re-assessed after the procedure. After obtaining informed consent, the scope was passed under direct vision. Throughout the procedure, the patient's blood pressure, pulse, and oxygen saturations were monitored continuously. The Duodenoscope was introduced through the mouth, and advanced to the duodenum and used to inject contrast into the bile duct. The ERCP was accomplished without difficulty. The patient tolerated the procedure well. 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 The esophagus was successfully intubated under direct vision. The scope was advanced to a normal major papilla in the descending duodenum without detailed examination of the pharynx, larynx and associated structures, and upper GI tract. The upper GI tract was grossly normal. The bile duct was deeply cannulated with the short-nosed traction sphincterotome. Contrast was injected. I personally interpreted the bile duct images. Ductal flow of contrast was adequate. Image quality was adequate. Contrast extended to the entire biliary tree. Opacification of the entire opacified area and entire biliary tree was successful. The maximum diameter of the ducts was 10 mm. The middle third of the main bile duct contained a single localized stenosis 6 mm in length. The upper third of the main bile duct, common hepatic duct, hepatic duct bifurcation and left and right hepatic ducts and all intrahepatic branches were diffusely dilated, secondary to a stricture. The largest diameter was 12 mm. A long 0.025 inch Jagwire was passed into the biliary tree. A 5 mm biliary sphincterotomy was made with a traction (standard) sphincterotome using ERBE electrocautery. There was no post-sphincterotomy bleeding. The biliary tree was swept with a 12 mm balloon starting at the bifurcation, left intrahepatic duct(s) and right intrahepatic duct(s). Sludge was swept from the duct. All stones were removed. Cells for cytology were obtained by brushing in the middle third of the main bile duct. The bile duct was explored endoscopically using the SpInteractive Fate direct visualization system. The SpyScope was advanced to the right intrahepatic duct(s). Visibility with the scope was good. The lumen of the middle third of the main bile duct was severely narrowed. The middle third of the main bile duct contained a single localized stenosis 6 mm in length. The middle third of the main bile duct was biopsied with a SpAutoRadioite miniature biopsy forceps for histology. One 10 Fr by 12 cm temporary stent was placed 5 cm into the common bile duct. Bile flowed through the stent. The stent was in good position. Imp (more content not included)... Normal [facility] Eosinophil percentageOrdered By: Matilde Henry on 01-13-2025 Eosinophils/100 WBC (Bld) 1.8 % 0-5 [facility] Erythrocyte distribution wid th ratioOrdered By: Matilde Henry on 01-13-2025 Erythrocyte distribution width (RBC) [Ratio] 14.1 % 11.6-14.6 [facility] Erythrocyte distribution wid th standard deviationOrdered By: Matilde Henry on 01-13-2025 Erythrocyte distribution width (RBC) [Ratio] 43.9 fl 35.1-43.9 [facility] Glomerular filtration rate ( GFR) estimation/1.73 sq m using serum, plasma, or whole bOrdered By: Matilde Henry on 01-13-2025 GFR/1.73 sq M.predicted among non-blacks MDRD (S/P/Bld) [Vol rate/Area] 99 mL/min/{1.73_m2} >60 [facility] Comment on above: mL/min/1.73m2 CKD-EP I Creatinine Equation (2020) Hematocrit Auto (Bld) [Volum e fraction]Ordered By: Matilde Henry on 01-13-2025 Hematocrit (Bld) [Volume fraction] 38.5 % Low 40-54 [facility] Hemoglobin measurementOrdere d By: Matilde Henry on 01-13-2025 Hemoglobin (Bld) [Mass/Vol] 13.5 g/dL 13.0-16.5 [facility] Immature granulocytes/100 WB C Auto (Bld)Ordered By: Matilde Henry on 01-13-2025 Immature granulocytes/100 WBC (Bld) 0.500 % 0.0-0.9 [facility] Comment on above: IG% - Immature Granu locytes (promyelocytes, myelocytes and metamyelocytes) > 1% indicates that a LEFT SHIFT is Present. Immunohistochemical Stainson 01-13-2025 Immunohistochemical Stains Patient Age/Sex Location Account Attending Physician ERICK GAUTAM 69/M MS3 [id number] Dr. Elin Benites, Specimen: [id number] Received: 01/13/25 Status: PAOLA Shaw Num: [id number] Spec Type: Mass Subm Dr: Trevon Webber, DO HEADER OPERATION: ERCP with spyglass, brushings, biopsy and stent placement PRE-OP DIAGNOSIS: Jaundice, dilated bile duct, dilated pancreatic duct, right upper quadrant pain, diabetes mellitus, type 2 TISSUE SUBMITTED: A- Mid common bile duct mass biopsy, spy bite MICROSCOPIC DIAGNOSIS A. Common bile duct, mid, mass, biopsy: * Fragments of columnar epithelium with focal atypia, favor reactive. * IHC p53 not increased, with rare weak reactivity favoring wild type (limited sample). * IHC Ki67 patchy positive, not increased. MICROSCOPIC DESCRIPTION Slides are reviewed. GROSS DESCRIPTION A. Received in formalin labeled with the patient's name and date of . Designated as mid common bile duct mass BX spy bite is a 0.5 x 0.1 x <0.1 cm aggregate of tissue flecks. Entirely submitted in 1 cassette. Entirety of the specimen may not survive processing. CT 01/13/2025 CPT:54961,16037,02028 Patient Age/Sex Location Account Attending Physician ERICK GAUTAM 69/M MS3 [id number] Dr. Elin Benites, DO Signed (signature on file) Dr. Aziza Bush MD 01/14/25 1602 Normal [facility] Comment on above: Performed By: #### L 501.080 #### [facility] Laboratory [facility] [place], [address] Laboratory - Chemistry and C hemistry - challengeOrdered By: Matilde Henry on 01-13-2025 AST [Catalytic activity/Vol] 50 U/L High <38 [facility] MCV (mean corpuscular volume ) determinationOrdered By: Matilde Henry on 01-13-2025 MCV (RBC) [Entitic vol] 85.2 fL 80-94 [facility] MR/POSTOP.ANEon 01-13-2025 MR/POSTOP.[facility] Medical Records Department [address] [place] [address] Anesthesia Postop Eval I 01/13/25 1438 MR#: [id number] Acct: [id number] Name: ERICK GAUTAM Rep #: [id number] : 1955 69 From: Brian Vazquez CRNA PCP: Dr. Belle Monk MD Status:ADM IN Y Race: C Location: MD3 [id number] Anesthesia: Postop Eval I Current Vital Signs Temperature: 97.5 F Pulse Rate: 85 Blood Pressure: 135/91 Respiratory Rate: 16 Pulse Ox: 97 Assessment Airway patent: Yes Spontaneous unlabored respirations: Yes nausea: No Vomiting: No Anesthesia Complication: No Fluid Hydration Crystalloid volume administer (ml): 800 Total IV fluid infused: 800 Progress Note Anesthesia document: Postop Eval 1 completed: Yes 01/13/25 143 Date Brian Vazquez HARDENING MACHINE OPERATOR Cosigner Signature: Date CC: Signed Normal [facility] [id number] 01-13-2025 [facility] Medical Records Department [address] [place] [address] Anesthesia Postop Eval II 01/13/25 1803 MR#: [id number] Acct: [id number] Name: ERICK GAUTAM Rep #: [id number] : 1955 69 From: Bernarda Rizo CRNA PCP: Dr. Belle Monk MD Status:ADM IN Y Race: C Location: [facility] GP843-7 Anesthesia Postop Eval I Sum Postop Eval Completion status Anesthesia document: Postop Eval 1 completed: Yes Anesthesia Postop Eval I Summary Anesthesia Postop Eval I Summary: Anesthesia Postop Eval I: Assessment Summary Airway patent Yes 01/13/25 14:38 HARDENING MACHINE OPERATOR.TNES Spontaneous unlabored Yes 01/13/25 14:38 HARDENING MACHINE OPERATOR.TNES respirations Mental status nausea No 01/13/25 14:38 HARDENING MACHINE OPERATOR.TNES Vomiting No 01/13/25 14:38 HARDENING MACHINE OPERATOR.TNES Anesthesia Postop Eval I: Fluid Summary Crystalloid volume administer 800 01/13/25 14:38 HARDENING MACHINE OPERATOR.TNES (ml) Colloids volume administered ( ml) Blood Product volume administered (ml) Total IV fluid infused 800 01/13/25 14:38 HARDENING MACHINE OPERATOR.TNES Anesthesia Postop Eval I: Summary Notes Anesthesia Complication No 01/13/25 14:38 HARDENING MACHINE OPERATOR.TNES Anesthesia Complication Comment: Post-operative progress note Anesthesia: Postop Eval II Evaluation Mental status: Awake Pain Level: 2 nausea: No Vomiting: No 01/13/25 1804 Date Bernarda Rizo HARDENING MACHINE OPERATOR Cosigner Signature: Date CC: Signed Normal [facility] Mean corpuscular hemoglobin (MCH) determinationOrdered By: Matilde Henry on 01-13-2025 MCH (RBC) [Entitic mass] 29.9 pg 27.0-32.0 [facility] Mean corpuscular hemoglobin concentration (MCHC) determinationOrdered By: Matilde Henry on 01-13-2025 MCHC (RBC) [Mass/Vol] 35.1 g/dL 32-36 [facility] Mean platelet volume determi nationOrdered By: Matilde Henry on 01-13-2025 Platelet mean volume (Bld) [Entitic vol] 10.1 fL 6.2-12.0 [facility] Monocyte percentageOrdered B y: Matilde Henry on 01-13-2025 Monocytes/100 WBC (Bld) 9.9 % 0-10 [facility] Neutrophil percentageOrdered By: Matilde Henry on 01-13-2025 Neutrophils/100 WBC (Bld) 70.7 % High 47-70 [facility] Nucleated red blood cell per centageOrdered By: Matilde Henry on 01-13-2025 Nucleated RBC/100 WBC (Bld) [Ratio] 0 % 0-5 [facility] O.R. Fluoro for C-Angel 12-20 O.R. Fluoro for C-Arm [facility] Imaging Services [address] [place] [address] O.R. Fluoro for C-Arm MR#: [id number] Acct: [id number] Name: ERICK GAUTAM Rep #: [id number] : 1955 M 69 From: Sam Acosta PCP: Dr. Belle Monk MD Status: ADM IN Study: O.R. Fluoro for C-Arm Date of Exam: 01/13/25 Exam# [id number] Ordering Dr: Trevon Webber DO PROCEDURE: ERCP BILIARY/PANCREAS; O.R. FLUORO FOR C-ARM 01/13/2025 REASON FOR EXAM: ERCP TECHNIQUE: Intraoperative fluoroscopy for ERCP. 7 fluoroscopic images were also obtained. Fluoroscopy time: 67.1 seconds. 21.38 mGy dose. RAD/O.R. Fluoro for C-Arm IMPRESSION: Intraoperative fluoroscopy for ERCP. 7 fluoroscopic images were also obtained. Reading Location: [place] [address] CC: Dr. Belle Monk MD; Trevon Webber DO Nurse Consultant: Signed Normal [facility] Platelet countOrdered By: Aaron Henry on 01-13-2025 Platelets (Bld) [#/Vol] 233 10*3/uL 150-450 [facility] Potassium measurement (mass/ volume)Ordered By: Matilde Henry on 01-13-2025 Potassium (Unsp spec) [Mass/Vol] 4.2 mmol/L 3.3-5.1 [facility] RBC Auto (Bld) [#/Vol]Ordere d By: Matilde Henry on 01-13-2025 RBC (Bld) [#/Vol] 4.52 10*6/uL Low 4.6-6.2 [facility] Serum DNA double strand anti body assay (units/volume)Ordered By: Trevon Webber on 01-13-2025 DNA double strand Ab Qn (S) [IU]/mL 0-9 [facility] Comment on above: Note: Specimen is ic teric. Negative <5 Equivocal 5 - 9 Positive >9 Serum Scl-70 antibody assay (units/volume)Ordered By: Trevon Webber on 01-13-2025 SCL-70 extractable nuclear Ab Qn (S) 0.3 AI 0.0-0.9 [facility] Comment on above: Note: Specimen is ic teric.Previous reported result: TNP AIEdited by: SIMONA on 01/14/25:1008 AMENDED REPORT 01/14/25 1008 ANTISCLER previously reported as: Test not performed Serum creatinine measurement (mass/volume)Ordered By: Matilde Henry on 01-13-2025 Creatinine [Mass/Vol] 0.71 mg/dL 0.70-1.20 [facility] Comment on above: Icterus present, Res ults may be affected. Serum globulin measurementOr dered By: Matilde Henry on 01-13-2025 Globulin (S) [Mass/Vol] 2.5 g/dL 2.2-4.2 [facility] Serum glucose measurement (m ass/volume)Ordered By: Matilde Henry on 01-13-2025 Glucose [Mass/Vol] 258 mg/dL High 70-99 [facility] Serum or plasma alanine ordoñez otransferase (ALT) measurementOrdered By: Matilde Henry on 01-13-2025 ALT [Catalytic activity/Vol] 94 U/L High <47 [facility] Serum or plasma albumin jenny urement (mass/volume)Ordered By: Matilde Henry on 01-13-2025 Albumin [Mass/Vol] 3.6 g/dL 3.4-4.8 [facility] Serum or plasma albumin/glob ulin mass ratioOrdered By: Matilde Henry on 01-13-2025 Albumin/Globulin [Mass ratio] 1.4 {ratio} 0.9-2.4 [facility] Serum or plasma alkaline mitzi sphatase measurementOrdered By: Matilde Henry on 01-13-2025 ALP [Catalytic activity/Vol] 267 U/L High 40-129 [facility] Serum or plasma calcium jenny urement (mass/volume)Ordered By: Matilde Henry on 01-13-2025 Calcium [Mass/Vol] 9.1 mg/dL 7.6-11.0 [facility] Serum or plasma urea nitroge n measurement (mass/volume)Ordered By: Matilde Henry on 01-13-2025 Urea nitrogen [Mass/Vol] 20 mg/dL High 4-19 [facility] Sodium levelOrdered By: Dali Henry on 01-13-2025 Sodium [Moles/Vol] 136 mmol/L 133-145 [facility] Special Stain Group IIon Special Stain Group II -------- Patient Age/Sex Location Account Attending Physician ERICK GAUTAM 69/M MS3 [id number] Dr. Elin Benites, DO Specimen: [id number] Received: 01/13/25-1436 Status: PAOLA Shaw Num: [id number] Spec Type: Fluid Subm Dr: Trevon Webber DO HEADER OPERATION: ERCP with spyglass, brushings, biopsy and stent placement PRE-OP DIAGNOSIS: Jaundice, dilated bile duct, dilated pancreatic duct, right upper quadrant pain, diabetes mellitus, type 2 TISSUE SUBMITTED: A- Mid common bile duct brushings, brush tip DIAGNOSIS CYTOLOGY A. Common bile duct, mid portion, brushings (cytospin, smear x4, cellblock): * No malignant cells identified. * Note: See also concurrent biopsy specimen [id number]. CYTOLOGY STUDY Slides are reviewed. CYTOLOGY GROSS A. Received is one brush tip with 0.5 ml of light-yellow fluid and 4 slides labeled with the patient's name and and designated per the requisition as Mid common bile duct. Submitted for cytology. 01/14/2025 CPT: 44470, 53489 Signed (signature on file) Dr. Aziza Bush MD 01/17/25 1139 Normal [facility] Comment on above: Performed By: #### P SSII ####[facility] [address] [place], [address] Total proteinOrdered By: Wisam Henry on 01-13-2025 Protein [Mass/Vol] 6.1 g/dL 5.9-8.4 [facility] White blood cell (WBC) count Ordered By: Matilde Henry on 01-13-2025 WBC (Bld) [#/Vol] 4.3 10*3/uL Low 4.4-11.0 [facility] Abdomen/Pelvis W IV Cont ONL Yon 01-12-2025 Abdomen/Pelvis W IV Cont ONLY [facility] Imaging Services [address] [place], [place] [address] Abdomen/Pelvis W IV Cont ONLY MR#: [id number] Acct: [id number] Name: ERICK GAUTAM Rep #: [id number] : 1955 M 69 From: Dagoberto De Leon MD PCP: Dr. Belle Monk MD Status: [facility] ER Study: Abdomen/Pelvis W IV Cont ONLY Date of Exam: Exam# [id number] Ordering Dr: Jeremy Lockett MD PROCEDURE: ABDOMEN/PELVIS [...] pancreatic mass or cyst. There is no peripancreatic inflammation. Adrenals: Unremarkable Kidneys: There is a 2.6 [...] Jeremy Lockett MD; Dr. Belle Monk MD Nurse Consultant: Signed Normal [facility] Absolute lymphocyte countOrd ered By: Jeremy Lockett on 01-12-2025 Lymphocytes Auto (Unsp spec) [#/Vol] 0.63 10*3/uL Low 0.83-4.51 [facility] Absolute neutrophil countOrd ered By: Jeremy Lockett on 01-12-2025 Neutrophils (Bld) [#/Vol] 2.9 10*3/uL 2.0-7.7 [facility] Anion gap in Serum or Plasma Ordered By: Jeremy Lockett on 01-12-2025 Anion gap [Moles/Vol] 13 mmol/L 5-15 [facility] Automated lymphocyte count a s percentage of total leukocytesOrdered By: Jeremy Lockett on 01-12-2025 Lymphocytes/100 WBC Auto (Unsp spec) 15.7 % Low 19-41 [facility] BUN/creatinine ratioOrdered By: Jeremy Lockett on 01-12-2025 Urea nitrogen/Creatinine [Mass ratio] 27.8 mg/mg High 10-20 [facility] Basophil percentageOrdered B y: Jeremy Lockett on 01-12-2025 Basophils/100 WBC (Bld) 0.2 % 0-1 [facility] Bedside Glucoseon 01-12-2025 FINGERSTICK GLU 222 mg/dL High 74-106 [facility] Comment on above: Result Comment: YUKI GEMENT OF PATIENT CARE PER NURSING PROTOCOL Performed By: #### L 3100.5440 #### [facility] Laboratory [address] [place], [address] FINGERSTICK GLU 237 mg/dL High 74-106 [facility] Comment on above: Result Comment: YUKI GEMENT OF PATIENT CARE PER NURSING PROTOCOL Performed By: #### L 400.0001 #### [facility] Laboratory [address] [place], [address] Bilirubin Test strip Ql (U)O rdered By: Jeremy Lockett on 01-12-2025 Bilirubin Ql (U) 3 mg/dL High Negative [facility] Comment on above: COLOR OF URINE MAY A FFECT DIPSTICK RESULTS. Bilirubin, totalOrdered By: Jeremy Lockett on 01-12-2025 Bilirubin [Mass/Vol] 12.50 mg/dL High 0.00-1.30 [facility] CA 19-9 agOrdered By: Sofia Webber on 01-12-2025 CA 19-9 ag 328 U/mL High 0-35 [facility] Comment on above: [employer] El ectrochemiluminescence Immunoassay(ECLIA)Values obtained with different assay methods or kits cannotbe used interchangeably. Results cannot be interpreted asabsolute evidence of the presence or absence of malignantdisease. CBC W/Diff, Automatedon 12-20 Absolute Lymph 0.63 X10 3/uL Low 0.83-4.51 [facility] Comment on above: Performed By: #### L 3100.5440 #### [facility] Laboratory [address] [place], [address] Absolute Neut 2.9 X10 3/uL Normal 2.0-7.7 [facility] Comment on above: Performed By: #### L 3100.5440 #### [facility] Laboratory [address] [place], [address] Basophils/100 WBC (Bld) 0.2 % Normal 0-1 [facility] Comment on above: Performed By: #### L 3100.5440 #### [facility] Laboratory [address] [place], [address] Eosinophils/100 WBC (Bld) 1.2 % Normal 0-5 [facility] Comment on above: Performed By: #### L 3100.5440 #### [facility] Laboratory [address] [place], [address] Erythrocyte distribution width (RBC) [Ratio] 13.9 % Normal 11.6-14.6 [facility] Comment on above: Performed By: #### L 3100.5440 #### [facility] Laboratory [address] [place], [address] Hematocrit (Bld) [Volume fraction] 40.2 % Normal 40-54 [facility] Comment on above: Performed By: #### L 3100.5440 #### [facility] Laboratory [address] [place], [address] Hemoglobin (Bld) [Mass/Vol] 13.9 g/dL Normal 13.0-16.5 [facility] Comment on above: Performed By: #### L 3100.5440 #### [facility] Laboratory [address] [place], [address] IG% 0.500 Normal 0.0-0.9 [facility] Comment on above: Result Comment: IG% - Immature Granulocytes (promyelocytes, myelocytes and metamyelocytes) > 1% indicates that a LEFT SHIFT is Present. Performed By: #### L 3100.5440 #### [facility] Laboratory [address] [place], [address] Lymphocytes/100 WBC (Bld) 15.7 % Low 19-41 [facility] Comment on above: Performed By: #### L 3100.5440 #### [facility] Laboratory [address] [place], [address] MCH (RBC) [Entitic mass] 29.6 pg Normal 27.0-32.0 [facility] Comment on above: Performed By: #### L 3100.5440 #### [facility] Laboratory [address] [place], [address] MCHC (RBC) [Mass/Vol] 34.6 g/dL Normal 32-36 [facility] Comment on above: Performed By: #### L 3100.5440 #### [facility] [address] [place], [address] MCV (RBC) [Entitic vol] 85.5 fL Normal 80-94 [facility] Comment on above: Performed By: #### L 3100.5440 #### [facility] Laboratory [address] [place], [address] Monocytes/100 WBC (Bld) 9.7 % Normal 0-10 [facility] Comment on above: Performed By: #### L 3100.5440 #### [facility] [address] [place], [address] Neutrophils/100 WBC (Bld) 72.7 % High 47-70 [facility] Comment on above: Performed By: #### L 0.5440 #### [facility] Laboratory [address] [place], [address] Nucleated RBC (Bld) [#/Vol] 0 10*3/uL Normal 0-5 [facility] Comment on above: Performed By: #### L 3100.5440 #### [facility] Laboratory [address] [place], [address] Platelet mean volume (Bld) [Entitic vol] 10.1 fL Normal 6.2-12.0 [facility] Comment on above: Performed By: #### L 3100.5440 #### [facility] Laboratory [address] [place], [address] Platelets (Bld) [#/Vol] 239 10*3/uL Normal 150-450 [facility] Comment on above: Performed By: #### L 3100.5440 #### [facility] [address] [place], [address] RBC (Bld) [#/Vol] 4.70 10*6/uL Normal 4.6-6.2 [facility] Comment on above: Performed By: #### L 3100.5440 #### [facility] [address] [place], [address] RDW SD 43.8 fl Normal 35.1-43.9 [facility] Comment on above: Performed By: #### L 3100.5440 #### [facility] Laboratory [address] [place], [address] WBC (Bld) [#/Vol] 4.0 10*3/uL Low 4.4-11.0 [facility] Comment on above: Performed By: #### L 8549.5440 #### [facility] Laboratory [address] [place], [address] CRPon 01-12-2025 C-REACTIVE PROT 5.58 mg/L High 0.0-3.0 [facility] Comment on above: Performed By: #### L 3300.0700, L101.9900, L3400.1500, L3300.1200, L501.6710, L3100.5020, L3100.5850, L504.2610, L3200.1100, L3200.0500 #### [facility] Laboratory [address] [place], [place], [address] Carbon dioxide, total [Moles /volume] in Central venous bloodOrdered By: Jeremy Lockett on 01-12-2025 CO2 [Moles/Vol] 23.0 mmol/L 21.0-32.0 [facility] Chloride assayOrdered By: Hamilton Lockett on 01-12-2025 Chloride [Moles/Vol] 97 mmol/L Low 98-108 [facility] Comprehensive Metabolic Prof ilon 01-12-2025 Albumin [Mass/Vol] 3.9 g/dL Normal 3.4-4.8 [facility] Comment on above: Performed By: #### L 3319.5440 #### [facility] Laboratory [address] [place], [address] Albumin/Globulin [Mass ratio] 1.3 {ratio} Normal 0.9-2.4 [facility] Comment on above: Performed By: #### L 4959.5440 #### [facility] Laboratory [address] [place], [address] ALK PHOS 292 U/L High 40-129 [facility] Comment on above: Performed By: #### L 7498.5440 #### [facility] [address] [place], [address] ALT [Catalytic activity/Vol] 112 U/L High <=46 [facility] Comment on above: Performed By: #### L 3100.5440 #### [facility] [address] [place], [address] AST [Catalytic activity/Vol] 51 U/L High <=37 [facility] Comment on above: Performed By: #### L 3100.5440 #### [facility] [address] [place], [address] Bilirubin [Mass/Vol] 12.50 mg/dL High 0.00-1.30 [facility] Comment on above: Performed By: #### L 3100.5440 #### [facility] Laboratory [address] [place], [address] BUN/CRE 27.8 RATIO High 10-20 [facility] Comment on above: Performed By: #### L 3100.5440 #### [facility] [address] [place], [address] Calcium [Mass/Vol] 9.2 mg/dL Normal 7.6-11.0 [facility] Comment on above: Performed By: #### L 3100.5440 #### [facility] [address] [place], [address] Chloride [Moles/Vol] 97 mmol/L Low 98-108 [facility] Comment on above: Performed By: #### L 3100.5440 #### [facility] [address] [place], [address] CO2 [Moles/Vol] 23.0 mmol/L Normal 21.0-32.0 [facility] Comment on above: Performed By: #### L 3100.5440 #### [facility] [address] [place], [address] Creatinine [Mass/Vol] 0.81 mg/dL Normal 0.70-1.20 [facility] Comment on above: Result Comment: Icte miky present, Results may be affected. Performed By: #### L 3342.5440 #### [facility] [address] [place], [address] ECRCL 91.67 ml/min Normal 50-250 [facility] Comment on above: Performed By: #### L 3100.5440 #### [facility] [address] [place], [address] GAP 13 Normal 5-15 [facility] Comment on above: Performed By: #### L 8709.5440 #### [facility] [address] [place], [address] GFR/1.73 sq M.predicted among non-blacks MDRD (S/P/Bld) [Vol rate/Area] 96 mL/min/{1.73_m2} Normal >60 [facility] Comment on above: Result Comment: mL/m in/1.73m2 CKD-EPI Creatinine Equation (2020) Performed By: #### L 3100.5440 #### [facility] [address] [place], [address] Globulin (S) [Mass/Vol] 2.9 g/dL Normal 2.2-4.2 [facility] Comment on above: Performed By: #### L 3100.5440 #### [facility] [address] [place], [address] Glucose [Mass/Vol] 374 mg/dL High 70-99 [facility] Comment on above: Performed By: #### L [id number] #### [facility] [address] [place], [address] Potassium [Moles/Vol] 4.0 mmol/L Normal 3.3-5.1 [facility] Comment on above: Performed By: #### L 3100.5440 #### [facility] Laboratory [address] [place], [address] Sodium [Moles/Vol] 133 mmol/L Normal 133-145 [facility] Comment on above: Performed By: #### L 3100.5440 #### [facility] [address] [place], [address] T PROT 6.8 g/dL Normal 5.9-8.4 [facility] Comment on above: Performed By: #### L 3100.5440 #### [facility] Laboratory [address] [place], [address] Urea nitrogen [Mass/Vol] 22 mg/dL High 4-19 [facility] Comment on above: Performed By: #### L 3100.5440 #### [facility] Laboratory [address] [place], [address] Emergency Department Summary on 01-12-2025 Emergency Department Summary [facility] Medical Records Department [address] [place] [address] Emergency Department Summary 01/12/25 MR#: [id number] Acct: [id number] Name: ERICK GAUTAM Rep #: [id number] : 1955 69 From: Jeremy Lockett MD [...] vomited. No fevers or chills. He states his symptoms began approximately 2-1/2 weeks ago. Last week [...] well as quintin colored stools and jaundice. PFSH PFS Medical History Umbilical hernia Gallbladder problem Nausea RUQ pain Cataract Home Medications ???Medication ???Instructions ???Recorded ???Last Taken ???Type sitagliptin phosphate 25 mg tablet 25 mg PO QHS 01/12/25 01/11/25 H istory (Januvia) Allergy/AdvReac Type Severity Reaction Status Date [...] 0.81. Glucose elevated at 374 consistent with his diabetes but anion gap normal at 13 so [...] bladder base. There is a 2.5 cm un (more content not included)... Normal [facility] Eosinophil percentageOrdered By: Jeremy Lockett on 01-12-2025 Eosinophils/100 WBC (Bld) 1.2 % 0-5 [facility] Erythrocyte Sed Rateon 01-12 SED RATE 27 mm/hr High 0-20 [facility] Comment on above: Performed By: #### L 3300.0700, L101.9900, L3400.1500, L3300.1200, L501.6710, L3100.5020, L3100.5850, L504.2610, L3200.1100, L3200.0500 #### [facility] Laboratory [address] [place], [address] Erythrocyte distribution wid th ratioOrdered By: Jeremy Lockett on 01-12-2025 Erythrocyte distribution width (RBC) [Ratio] 13.9 % 11.6-14.6 [facility] Erythrocyte distribution wid th standard deviationOrdered By: Jeremy Lockett on 01-12-2025 Erythrocyte distribution width (RBC) [Ratio] 43.8 fl 35.1-43.9 [facility] Erythrocyte sedimentation ra teOrdered By: Trevon Friend on 01-12-2025 ESR (Bld) [Velocity] 27 mm/h High 0-20 [facility] Glomerular filtration rate ( GFR) estimation/1.73 sq m using serum, plasma, or whole bOrdered By: Jeremy Lockett on 01-12-2025 GFR/1.73 sq M.predicted among non-blacks MDRD (S/P/Bld) [Vol rate/Area] 96 mL/min/{1.73_m2} >60 [facility] Comment on above: mL/min/1.73m2 CKD-EP I Creatinine Equation (2020) H AND P Exam - [facility] 01-12-2025 H&P Exam - Hospitalist [facility] Medical Records Department [address] [place] [address] H P Exam - Hospitalist 01/12/25 1336 MR#: [id number] Acct: [id number] Name: ERICK GAUTAM Rep #: [id number] : 1955 69 From: Matilde Henry MD PCP: Dr. Belle Monk MD Status:REG ER Location: ED HPI - General General Date of Admission: 01/12/25 Date of Service: 01/12/25 Chief Complaint: RUQ pain, jaundice HPI Narrative ERICK GAUTAM, is a 69-year-old male with history of diabetes recently switched from Januvia to metformin who presented to [facility] ED 01/12/2025 with 2-1/2 weeks of jaundice [...] aspect of right hepatic lobe and circumscribed low- density lesion in the left hepatic lobe. Moderate [...] weeks and yellowing of his skin, his urine has been dark and his stool is been light-colored but no diarrhea or constipation. Reports poor appetite and occasional nausea. No fevers or chills, no other new or acute complaints. [facility] Medical History (Updated 01/12/25 @ 13:[address] Matilde Henry MD) Cataract Diabetes mellitus, type 2 Gallbladder problem Nausea RUQ pain Umbilical hernia Home Medications ???Medication ???Instructions ???Recorded ???Last Taken ???Type sitagliptin phosphate 25 mg tablet 25 mg PO QHS 01/12/25 01/11/25 H istory (Januvia) Allergy/AdvReac Type Severity Reaction Status Date [...] (Auto) 72.7 H, Lymph % (Auto) 15.7 L, Spencer % (Auto) 9.7, Eos % (Auto) 1.2, Baso % (Auto) 0.2, Absolute Neuts (auto) 2.9, Absolute Lymphs (auto) 0.63 L, Nucleated RBC % 0, So (more content not included)... Normal [facility] Hematocrit Auto (Bld) [Volum e fraction]Ordered By: Jeremy Lockett on 01-12-2025 Hematocrit (Bld) [Volume fraction] 40.2 % 40-54 [facility] Hemoglobin measurementOrdere d By: Jeremy Lockett on 01-12-2025 Hemoglobin (Bld) [Mass/Vol] 13.9 g/dL 13.0-16.5 [facility] IgEOrdered By: Trevon acosta on 01-12-2025 IgE 37 IU/mL 6-495 [facility] Immature granulocytes/100 WB C Auto (Bld)Ordered By: Jeremy Lockett on 01-12-2025 Immature granulocytes/100 WBC (Bld) 0.500 % 0.0-0.9 [facility] Comment on above: IG% - Immature Granu locytes (promyelocytes, myelocytes and metamyelocytes) > 1% indicates that a LEFT SHIFT is Present. Ketones Test strip Ql (U)Ord ered By: Jeremy Lockett on 01-12-2025 Ketones Ql (U) 5 mg/dl High Negative [facility] LDHon 01-12-2025 LDH 143 U/L Normal 87-241 [facility] Comment on above: Performed By: #### L 3300.0700, L101.9900, L3400.1500, L3300.1200, L501.6710, L3100.5020, L3100.5850, L504.2610, L3200.1100, L3200.0500 #### [facility] Laboratory [address] [place], [address] Laboratory - Chemistry and C hemistry - challengeOrdered By: Jeremy Lokcett on 01-12-2025 AST [Catalytic activity/Vol] 51 U/L High <38 [facility] Lactate dehydrogenase (LDH) measurementOrdered By: Trevon Webber on 01-12-2025 LDH [Catalytic activity/Vol] 143 U/L 87-241 [facility] Lipaseon 01-12-2025 Lipase [Catalytic activity/Vol] 28 U/L Normal 13-75 [facility] Comment on above: Result Comment: Dana turner note: LIPASE revised reference range effective 22. New Lipase methodology. Expected to produce lower values than the previous assay method. NEW Reference Range: 13 - 75 U/L Performed By: #### L 8460.5452 #### [facility] [address] [place], [address] Lipase measurementOrdered By : Jeremy Lockett on 01-12-2025 Lipase [Catalytic activity/Vol] 28 U/L 13-75 [facility] Comment on above: Please note:LIPASE r evised reference range effective 22. New Lipase methodology. Expected to produce lower values than the previous assay method. NEW Reference Range: 13 - 75 U/L MCV (mean corpuscular volume ) determinationOrdered By: Jeremy Lockett on 01-12-2025 MCV (RBC) [Entitic vol] 85.5 fL 80-94 [facility] MR/CON.PCM.GIon 01-12-2025 MR/CON.PCM.GI [facility] Medical Records Department [address] [place] [address] Consultation - 01/12/25 1821 MR#: [id number] Acct: [id number] Name: ERICK GAUTAM Rep #: [id number] : 1955 69 From: Trevon Friend DO PCP: Dr. Belle Monk MD Status:ADM IN [facility] Consult Data Date of Consult: 01/12/25 HPI Narrative Reason for Consultation: Jaundice right upper quadrant discomfort HPI Narrative: ERICK GAUTAM, is a 69 M who presents from the clinic after seeing surgery for right lower quadrant pain and possible need for cholecystectomy. Patient has a new diagnosis of diabetes beginning of the year. He has lost approximately 40 pounds since the beginning of the year. Initially, he had started cutting back on his sugars along with administration of metformin and Januvia he was able to control his blood sugars. He does not notice recent hemoglobin A1c. His PCP recently stopped his metformin due to bloating and uncomfortableness in his right upper quadrant. 01/05/2025 US/Abdomen Limited IMPRESSION: Hepatomegaly and diffuse fatty infiltration of the liver. Distended gallbladder with positive Jones's sign and small amount of pericholecystic fluid. Acalculous cholecystitis should be ruled out. Dilated common bile duct. 01/12/2025 : CT scan abdomen pelvis : there is a hypervascular lesion in the superior [...] 2.5 cm uncomplicated fat containing umbilical hernia. WBC 4.0 L, RBC 4.70, Hgb 13.9, Hct 40.2, MCV 85.5, MCH 29.6, MCHC 34.6, RDW Std Deviation 43.8, RDW Coeff of Monik 13.9, Plt Count 239, Total Bilirubin 12.50 H, AST 51 H, ALT 112 H, Alkaline Phosphatase 292 H, Total Protein 6.8, Albumin 3.9, Globulin 2.9Lipase 28 [facility] Medical History Diabetes mellitus, type 2 Umbilical hernia Gallbladder problem Nausea RUQ pain Cataract Home Medications ???Medication ???Instructions ???Recorded ???Last Taken ???Type sitagliptin phosphate 25 mg tablet 25 mg PO QHS 01/12/25 01/11/25 H istory (Januvia) Allergy/AdvReac Type Severity Reaction Status Date [...] of his skin Psychiatric: No complaints voiced Lab / Micro Data 01/12/25 09:45 01/12/25 09:45 Labs: Laboratory Results - last 24 hr 01/12/25 09:45: WBC 4.0 L, RBC 4.70, Hgb 13.9, Hct 40.2, MCV 85.5, MCH 29.6, MCHC 34.6, RDW Std Deviation 43.8, RDW Coeff of Monik 13.9, Plt Count 239, MPV 10.1, Immature Gran % (Auto) 0.500, Neut % (Auto) 72.7 H, Lymph % (Auto) 15.7 L, Spencer % (Auto) 9.7, Eos % (Auto) 1.2, [...] Total Bilirubin 12.50 H, AST 51 H, ALT 112 H, Alkaline Phosphatase 292 H, Total Protein 6.8, Albumin 3.9, Globulin 2.9, Albumin/Globulin Ratio 1.3, Lipase 28 01/12/25 10:10: Urine Color Berna, Urine Clarity Clear, Urine pH 6.0, Ur Specific [place] 1.015, (more content not included)... Normal [facility] MRCP Abdomen without Contras ton 01-12-2025 MRCP Abdomen without Contrast [facility] Imaging Services [address] [place] [address] MRCP Abdomen without Contrast MR#: [id number] Acct: [id number] Name: ERICK GAUTAM Rep #: [id number] : 1955 M 69 From: Marta marinelli MD PCP: Dr. Belle Monk MD Status: ADM IN Study: MRCP Abdomen without Contrast Date of Exam: Exam# [id number] Ordering Dr: Trevon Webber DO PROCEDURE: MRCP ABDOMEN WITHOUT CONTRAST 01/12/2025 REASON FOR EXAM: JAUNDICE AND WEIGHT LOSS TECHNIQUE: MRCP ABDOMEN WITHOUT CONTRAST Multiplanar and multisequence images were obtained. CONTRAST: None COMPARISON: CT scan of the abdomen pelvis dated 01/12/2025. FINDINGS: The visualized lung bases are unremarkable. The liver is normal in size and signal intensity. There is extensive intrahepatic and extrahepatic biliary ductal dilatation with sudden cut off of the common bile duct at its mid aspect at the level of an isointense filling defect measuring 8 mm x 20 mm in coronal dimension. There is associated severe pancreatic duct dilatation as well as dilatation of the gallbladder. The pancreatic parenchyma is otherwise unremarkable. Normal unenhanced spleen. Normal pancreas. Normal bilateral adrenal glands. Normal size of the right kidney. There is no right renal mass. There are no right renal calculi. There is no right hydronephrosis. Normal visualized right ureter. Normal size of the left kidney. There is no left renal mass. 1.9 x 3.0 cm cyst is seen in the lower pole of the left kidney. There are no left renal calculi. There is no left hydronephrosis. Normal visualized left ureter. Normal visualized stomach. Normal visualized small intestine. Normal visualized colon. There is no demonstrated peritoneal fluid. Normal abdominal aorta. Normal inferior vena cava. Normal retroperitoneum. Normal abdominal wall. Normal osseous structures. MRI/MRCP Abdomen without Contrast IMPRESSION: Findings consistent with an isointense filling defect in the mid aspect of the common bile duct suspicious for a soft tissue mass, unlikely common bile duct stone. Associated intrahepatic and extrahepatic blade ductal dilatation as well as dilatation of the gallbladder and pancreatic duct. Left renal cyst. Reading [facility] CC: Dr. Belle Monk MD; Trevon Webber DO Nurse Consultant: Signed Normal [facility] Magnetic resonance imaging r eportOrdered By: Marta Villeda on 01-12-2025 Study report [facility] Imaging Services [address] [place] [address] MRCP Abdomen without Contrast MR#: [id number] Acct: [id number] Name: ERICK GAUTAM Rep #: [id number] : 1955 M 69 From: Sukhdeep Villeda MD PCP: Dr. Belle Monk MD Status: ADM IN Study:MRCP Abdomen without Contrast Date of E xam: 01/12/25 Exam# [id number] Ordering Dr: Larry Webber DO PROCEDURE: MRCP ABDOMEN WITHOUT CONTRAST 01/12/2025 REASON FOR EXAM: JAUNDICE AND WEIGHT LOSS TECHNIQUE: MRCP ABDOMEN WITHOUT CONTRAST Multiplanar and multisequence images were obtained. CONTRAST: None COMPARISON: CT scan of the abdomen pelvis dated 01/12/2025. FINDINGS: The visualized lung bases are unremarkable. The liver is normal in size and signal intensity. There is extensive intrahepatic and extrahepatic biliary ductal dilatation with sudden cut off of the common bile duct at its mid aspect at the level of anisointense filling defect measuring 8 mm x 20 mm in coronal dimension. There is associated severe pancreatic duct dilatation as well as dilatation of the gallbladder. The pancreatic parenchyma is otherwise unremarkable. Normal unenhanced spleen. Normal pancreas. Normal bilateral adrenal glands. Normal size of the right kidney. There is no right renal mass. There are no right renal calculi. There is no right hydronephrosis. Normal visualized right ureter. Normal size of the left kidney. There is no left renal mass. 1.9 x 3.0 cm cystis seen in the lower pole of the left kidney. There are no left renal calculi. There is no left hydronephrosis. Normal visualized left ureter. Normal visualized stomach. Normal visualized small intestine. Normal visualized colon. There is no demonstrated peritoneal fluid. Normal abdominal aorta. Normal inferior vena cava. Normal retroperitoneum. Normal abdominal wall. Normal osseous structures. MRI/MRCP Abdomen without Contrast IMPRESSION: Findings consistent with an isointense filling defect in the mid aspect of the common bile duct suspicious for a soft tissue mass, unlikely common bile duct stone. Associated intrahepatic and extrahepatic blade ductal dilatation as well as dilatation of the gallbladder and pancreatic duct. Left renal cyst. Reading Location: [place] [address] CC: Dr. Belle Monk MD; Trevon Webber, DO ~ Nurse Consultant: Signed [facility] Mean corpuscular hemoglobin (MCH) determinationOrdered By: Jeremy Lockett on 01-12-2025 MCH (RBC) [Entitic mass] 29.6 pg 27.0-32.0 [facility] Mean corpuscular hemoglobin concentration (MCHC) determinationOrdered By: Jeremy Lockett on 01-12-2025 MCHC (RBC) [Mass/Vol] 34.6 g/dL 32-36 [facility] Mean platelet volume determi nationOrdered By: Jeremy Lockett on 01-12-2025 Platelet mean volume (Bld) [Entitic vol] 10.1 fL 6.2-12.0 [facility] Microscopic analysis of urin e for red blood cells (RBC)Ordered By: Jeremy Lockett on 01-12-2025 Microscopic analysis of urine for red blood cells (RBC) 5-10 SEEN /hpf 0-5 [facility] Monocyte percentageOrdered B y: Jeremy Lockett on 01-12-2025 Monocytes/100 WBC (Bld) 9.7 % 0-10 [facility] Mucus LM Ql (Urine sed)Order ed By: Jeremy Lockett on 01-12-2025 Mucus Ql (Urine sed) RARE /hpf [facility] Neutrophil percentageOrdered By: Jeremy Lockett on 01-12-2025 Neutrophils/100 WBC (Bld) 72.7 % High 47-70 [facility] Nitrite Test strip Ql (U)Ord ered By: Jeremy Lockett on 01-12-2025 Nitrite Ql (U) Negative Negative [facility] No Panel InformationOrdered By: Trevon Webber on 01-12-2025 Hepatitis C Antibody Comment Comment . [facility] Comment on above: Not infected with HC V unless early or acute infection issuspected (which may be delayed in an immunocompromisedindividual), or other evidence exists to indicate HCVinfection.Performed at: - [facility] [id number] Director: Dylan Osorio PhD, Phone: [phone] Nucleated red blood cell per centageOrdered By: Jeremy Lockett on 01-12-2025 Nucleated RBC/100 WBC (Bld) [Ratio] 0 % 0-5 [facility] Platelet countOrdered By: Hamilton Lockett on 01-12-2025 Platelets (Bld) [#/Vol] 239 10*3/uL 150-450 [facility] Potassium measurement (mass/ volume)Ordered By: Jeremy Lockett on 01-12-2025 Potassium (Unsp spec) [Mass/Vol] 4.0 mmol/L 3.3-5.1 [facility] Protein Test strip Ql (U)Ord ered By: Jeremy Lockett on 01-12-2025 Protein Ql (U) 30 mg/dl High Negative [facility] RBC Auto (Bld) [#/Vol]Ordere d By: Jeremy Lockett on 01-12-2025 RBC (Bld) [#/Vol] 4.70 10*6/uL 4.6-6.2 [facility] Serum Maricruz Trinh virus cap rosy IgM antibody assay (units/volume)Ordered By: Trevon Webber on 01-12-2025 EBV capsid IgM Qn (S) [arb'U]/mL 0.0-35.9 [facility] Comment on above: Negative <36.0 Equiv ocal 36.0 - 43.9 Positive >43.9 Serum Maricruz Trinh virus nuc lear IgG antibody assay (units/volume)Ordered By: Trevon Webber on 01-12-2025 EBV nuclear IgG Qn (S) 155.0 U/mL High 0.0-17.9 [facility] Comment on above: Negative <18.0 Equiv ocal 18.0 - 21.9 Positive >21.9 Serum IgG subclass 1 measure ment (mass/volume)Ordered By: Trevon Webber on 01-12-2025 IgG subclass 1 (S) [Mass/Vol] 528 mg/dL 248-810 [facility] Serum IgG subclass 2 measure ment (mass/volume)Ordered By: Trevon Webber on 01-12-2025 IgG subclass 2 (S) [Mass/Vol] 287 mg/dL 130-555 [facility] Serum IgG subclass 3 measure ment (mass/volume)Ordered By: Trevon Webber on 01-12-2025 IgG subclass 3 (S) [Mass/Vol] 30 mg/dL 15-102 [facility] Serum classic neutrophil cyt oplasmic antibody assay (units/volume)Ordered By: Trevon Webber on 01-12-2025 Neutrophil cytoplasmic Ab.classic Qn (S) <1:20 titer Neg:<1:20 [facility] Comment on above: Note: Specimen is ic teric. Serum creatinine measurement (mass/volume)Ordered By: Jeremy Lockett on 01-12-2025 Creatinine [Mass/Vol] 0.81 mg/dL 0.70-1.20 [facility] Comment on above: Icterus present, Res ults may be affected. Serum globulin measurementOr dered By: Jeremy Lockett on 01-12-2025 Globulin (S) [Mass/Vol] 2.9 g/dL 2.2-4.2 [facility] Serum glucose measurement (m ass/volume)Ordered By: Jeremy Lockett on 01-12-2025 Glucose [Mass/Vol] 374 mg/dL High 70-99 [facility] Serum or plasma C reactive p rotein measurement (mass/volume)Ordered By: Trevon Webber on 01-12-2025 CRP [Mass/Vol] 5.58 mg/L High 0.0-3.0 [facility] Serum or plasma IgA measurem ent (mass/volume)Ordered By: Trevon Webber on 01-12-2025 IgA [Mass/Vol] 204 mg/dL 61-437 [facility] Serum or plasma IgG measurem ent (mass/volume)Ordered By: Trevon Webber on 01-12-2025 IgG [Mass/Vol] 1067 mg/dL 603-1613 [facility] IgG [Mass/Vol] Not Reportable [facility] Serum or plasma alanine ordoñez otransferase (ALT) measurementOrdered By: Jeremy Lockett on 01-12-2025 ALT [Catalytic activity/Vol] 112 U/L High <47 [facility] Serum or plasma albumin jenny urement (mass/volume)Ordered By: Jeremy Lockett on 01-12-2025 Albumin [Mass/Vol] 3.9 g/dL 3.4-4.8 [facility] Serum or plasma albumin/glob ulin mass ratioOrdered By: Jeremy Lockett on 01-12-2025 Albumin/Globulin [Mass ratio] 1.3 {ratio} 0.9-2.4 [facility] Serum or plasma alkaline mitzi sphatase measurementOrdered By: Jeremy Lockett on 01-12-2025 ALP [Catalytic activity/Vol] 292 U/L High 40-129 [facility] Serum or plasma calcium jenny urement (mass/volume)Ordered By: Jeremy Lockett on 01-12-2025 Calcium [Mass/Vol] 9.2 mg/dL 7.6-11.0 [facility] Serum or plasma cytomegalovi miky (CMV) IgM antibody assay (units/volume)Ordered By: Trevon Webber on 01-12-2025 CMV IgM Qn < 30.0 AU/mL 0.0-29.9 [facility] Comment on above: Negative <30.0 Equiv ocal 30.0 - 34.9 Positive >34.9A positive result is generally indicative of acuteinfection, reactivation or persistent IgM production.Performed at: [facility] [id number] Director: Dylan Osorio PhD, Phone: [phone] at: [facility] [id number] Director: Jayde Casanova MD, Phone: [phone] Serum or plasma hepatitis B virus surface antigen detection by immunoassayOrdered By: Trevon Webber on 01-12-2025 HBV surface Ag IA Ql Negative Negative [facility] Serum or plasma urea nitroge n measurement (mass/volume)Ordered By: Jeremy Lockett on 01-12-2025 Urea nitrogen [Mass/Vol] 22 mg/dL High 4-19 [facility] Serum perinuclear neutrophil cytoplasmic antibody titer by immunofluorescenceOrdered By: Trevon Webber on 01-12-2025 Neutrophil cytoplasmic Ab.perinuclear IF (S) [Titer] <1:20 titer Neg:<1:20 [facility] Comment on above: Note: Specimen is ic teric.The presence of positive fluorescence exhibiting P-ANCA orC-ANCA patterns alone is not specific for the diagnosis ofWegener's Granulomatosis (WG) or microscopic polyangiitis.Decisions about treatment should not be based solely onANCA IFA results. The International ANCA Group Consensusrecommends follow up testing of positive sera with both NC-3 and MPO-ANCA enzyme immunoassays. As many as 5% serumsamples are positive only by EIA. Ref. AM J Clin Svbzcc6533;111:507-513. Sodium levelOrdered By: Jeremy Lockett on 01-12-2025 Sodium [Moles/Vol] 133 mmol/L 133-145 [facility] Squamous epithelial cells de tection in urine sediment by light microscopyOrdered By: Jermey Lockett on 01-12-2025 Epithelial cells.squamous LM Ql (Urine sed) 0-5 SEEN /hpf 0-5 [facility] Surgery Visit Reporton 01-12 Surgery Visit Report [facility] [address] [place] [address] OFFICE VISIT Date of Service: 01/12/25 MR#: [id number] Acct: [id number] Name: ERICK GAUTAM Rep #: [id number] : 1955 Provider: Dr. Freeman elkins MD Age/Sex: 69/M Location: [facility] Status: Signed Intake Vital Signs 07/20/24 15:06 01/12/25 08:53 Height 5 ft 11 in 5 ft 11 in Weight: 184 lb 6 oz BMI 25.7 BP 151/89 H Blood Pressure Location Rt brachial Position Sitting Respiration 18 Pulse 81 Pulse Source Monitor Temp 97.6 F L Temp Source Temporal Pulse Oximetry (%) 98 Oxygen Delivery Method room air Intake Visit Reasons: RUQ PAIN POSSIBLE GALLBLADDER Chief Complaint: RUQ pain possible gallbladder Is patient in pain?: Yes (RUQ ) Allergies No Known Allergies Allergy (Verified 01/12/25 08:55) Have you fallen in the past year?: No [facility] Medical History (Updated 01/12/25 @ 08:53 by Shirley Lopez LPN) Umbilical hernia Gallbladder problem Nausea RUQ pain Cataract Surgical History (Updated 01/12/25 @ 08:53 by Shirley Lopez LPN) H/O right inguinal hernia repair History of appendectomy Social History (Updated 07/20/24 @ 17:[address] Gilbert Thompson MD) household members: spouse Smoking Status: Never smoker HPI HPI HPI: Patient is a 69-year-old male who presents with jaundice and right upper quadrant pain. This has been going on for several weeks. He reports his nausea and uncomfortableness in the right upper quadrant. ROS General General: Yes weight change and fatigue; No appetite, colon cancer, breast cancer or weakness HEENT HEENT: No difficulty swallowing, eye injury, eye surgery, swollen glands or hoarseness Endo Endocrine: Yes diabetes mellitus; No thyroid disease, thyroid cancer, Hair loss, heat intolerance or cold intolerance Skin Skin: No rash or changing moles Musc Musculoskeletal: No back problems, arthritis, rheumatoid arthritis, gout or joint pain Cardio Cardiovascular: No murmur, pacemaker, heart disease, atrial fibrillation, high blood pressure, heart attack, heart stent, palpitations, shortness of breath with exertion or chest pain Psych Psychiatric: No depression, anxiety or hearing voices Resp Respiratory: No shortness of breath, No sleep apnea, No cough, No COPD, No asthma, No emphysema and No wheezing Gastro Gastrointestinal: Yes abdominal pain, Yes nausea or vomiting, No diarrhea, No constipation, No blood in stool, No acid reflux, No hemorrhoids, No ulcers, Yes gallbladder problem and No black,tarry stools Christian[facility] Hematologic: No blood thinners, No blood disorders, No bleeding, No anemia and No blood clots Neuro Neurologic: No numbness, No tingling and No weakness Exam Const General: cooperative Orientation: alert and oriented x3 HENMT Head: normal to inspection Eyes Sclera: scleral abnormality Neck Neck: normal visual inspection and full ROM Chest Chest palpation inspection: normal inspection of the chest Resp Effort Inspection: normal respiratory effort Auscultation: clear to auscultation bilaterally Cardio Rate: regular rate Rhythm: regular rhythm GI Inspection: non-distended Palpation: soft and nontender Skin General: no rashes or lesions noted Neuro General: patient alert and patient oriented x3 Extrem General: full ROM Psych Appearance: grossly normal Mental Status: mental status grossly normal Assessment and Plan Assessment and Plan (1) Gallbladder problem: Status: Acute (2) RUQ pain: Status: Acute Orders: Orders Abdomen/Pelvis WITH Contrast Today K82.9 - Disease of gallbladder, unspecified, R10.11 - Right upper quadrant pain, R11.0 - Nausea Liver Profile Today K82.9 - Disease of gallbladder, unspecified, R10.11 - Right upper quadrant pain, R11.0 - Nausea Medications: Discontinued metformin Discontinued Reason: Pt no longer taking 500 mg PO BID 60 tabs 0RF Plan The patient had an ultrasound and liver enzymes about 2 weeks ago. At that time the ultrasound showed a distended gallbladder and a distended common bile duct with no stones. The patient also had a bilirubin of almost 7. The patient still appears jaundiced and is having scleral icterus and a lot of itching. I am sending the patient to the emergency room to be evaluated. Patient will likely need admitted and evaluation by GI. Freeman Stauffer MD Pager: [facility] [address] [place] [address], [address] [place] [address] Office: Coding Level of Care Code Off vis,new,level 3 Diagnoses Gallbladder problem K82.9 RUQ pain R10.11 Clinical Quality Measures Falls Risk Screening/Assistive Devices Have you fallen (more content not included)... Normal [facility] Total proteinOrdered By: Gely Lockett on 01-12-2025 Protein [Mass/Vol] 6.8 g/dL 5.9-8.4 [facility] Urinalysis, Completeon 01-12 Mucus Ql (Urine sed) RARE Normal [facility] Comment on above: Order Comment: COLOR OF URINE MAY AFFECT DIPSTICK RESULTS. CLEAN CATCH Performed By: #### L 400.0001 #### [facility] [address] [place], [place], [address] BACTERIA 2+ /hpf Normal None Seen [facility] Comment on above: Order Comment: COLOR OF URINE MAY AFFECT DIPSTICK RESULTS. CLEAN CATCH Performed By: #### L 400.0001 #### [facility] [address] [place], [address] EPI,SQUAMOUS 0-5 SEEN Normal 0-5 [facility] Comment on above: Order Comment: COLOR OF URINE MAY AFFECT DIPSTICK RESULTS. CLEAN CATCH Performed By: #### L 400.0001 #### [facility] [address] [place], [address] RBC 5-10 SEEN Normal 0-5 [facility] Comment on above: Order Comment: COLOR OF URINE MAY AFFECT DIPSTICK RESULTS. CLEAN CATCH Performed By: #### L 400.0001 #### [facility] [address] [place], [address] WBC 0 SEEN Normal 0-5 [facility] Comment on above: Order Comment: COLOR OF URINE MAY AFFECT DIPSTICK RESULTS. CLEAN CATCH Performed By: #### L 400.0001 #### [facility] [address] [place], [address] Urine clarityOrdered By: Gely Lockett on 01-12-2025 Clarity (U) Clear Clear [facility] Urine color determinationOrd ered By: Jeremy Lockett on 01-12-2025 Color (U) Berna Yellow [facility] Urine glucose detectionOrder ed By: Jeremy Lockett on 01-12-2025 Glucose Ql (U) 1000 mg/dl High Normal [facility] Urine leukocyte esterase det ection by dipstickOrdered By: Jeremy Lockett on 01-12-2025 Leukocyte esterase Test strip Ql (U) 25 /ul High Negative [facility] Urine pHOrdered By: Jeremy richardson on 01-12-2025 pH (U) 6.0 [pH] 5.0 - 8.0 [facility] Urine sediment bacteria coun t by microscopy (number/high power field)Ordered By: Jeremy Lockett on 01-12-2025 Bacteria LM.HPF (Urine sed) [#/Area] 2 /[HPF] None Seen [facility] Urine specific gravity measu rementOrdered By: Jeremy Lockett on 01-12-2025 Specific gravity (U) [Rel density] 1.015 1.002-1.03 0 [facility] Urine urobilinogen measureme ntOrdered By: Jeremy Lockett on 01-12-2025 Urobilinogen Ql (U) 4 mg/dl High Normal [facility] White blood cell (WBC) count Ordered By: Jeremy Lockett on 01-12-2025 WBC (Bld) [#/Vol] 4.0 10*3/uL Low 4.4-11.0 [facility] White blood cell countOrdere d By: Jeremy Bermudezshreyas on 01-12-2025 White blood cell count 0 SEEN /hpf 0-5 [facility] Abdomen Limitedon 01-05-2025 Abdomen Limited [facility] Imaging Services [address] [place] [address] Abdomen Limited MR#: [id number] Acct: [id number] Name: ERICK GAUTAM Rep #: [id number] : 1955 M 69 From: He malcolm MD PCP: Dr. Belle Monk MD Status: REG CLI Study: Abdomen Limited Date of Exam: 01/05/25 Exam# [id number] Ordering Dr: Belle Monk MD PROCEDURE: ABDOMEN [...] out. Dilated common bile duct. Reading Location: [facility] CC: Dr. Belle Monk MD Nurse Consultant: Signed Normal [facility] Lipaseon 01-05-2025 Lipase [Catalytic activity/Vol] 35 U/L Normal 13-75 [facility] Comment on above: Order Comment: COLOR OF URINE MAY AFFECT DIPSTICK RESULTS. CLEAN CATCH Result Comment: Dana turner note: LIPASE revised reference range effective 22. New Lipase methodology. Expected to produce lower values than the previous assay method. NEW Reference Range: 13 - 75 U/L Performed By: #### L 400.0001 #### [facility] [address] [place], [place], [id number] Absolute lymphocyte countOrd ered By: Belle Monk on 01-04-2025 Lymphocytes Auto (Unsp spec) [#/Vol] 0.87 10*3/uL 0.83-4.51 [facility] Absolute neutrophil countOrd ered By: Belle Monk on 01-04-2025 Neutrophils (Bld) [#/Vol] 3.5 10*3/uL 2.0-7.7 [facility] Automated lymphocyte count a s percentage of total leukocytesOrdered By: Belle Monk on 01-04-2025 Lymphocytes/100 WBC Auto (Unsp spec) 18.3 % Low 19-41 [facility] Basophil percentageOrdered B y: Belle Monk on 01-04-2025 Basophils/100 WBC (Bld) 0.2 % 0-1 [facility] Bilirubin directOrdered By: Belle Monk on 01-04-2025 Bilirubin.direct [Mass/Vol] 4.87 mg/dL High 0.00-0.30 [facility] Bilirubin, totalOrdered By: Belle Monk on 01-04-2025 Bilirubin [Mass/Vol] 6.87 mg/dL High 0.00-1.30 [facility] CBC W/Diff, Automatedon 12-19 Absolute Lymph 0.87 X10 3/uL Normal 0.83-4.51 [facility] Comment on above: Performed By: #### L 400.0001 #### [facility] [address] [place], [address] Absolute Neut 3.5 X10 3/uL Normal 2.0-7.7 [facility] Comment on above: Performed By: #### L 400.0001 #### [facility] [address] [place], [address] Basophils/100 WBC (Bld) 0.2 % Normal 0-1 [facility] Comment on above: Performed By: #### L 400.0001 #### [facility] [address] [place], [address] Eosinophils/100 WBC (Bld) 1.1 % Normal 0-5 [facility] Comment on above: Performed By: #### L 400.0001 #### [facility] [address] [place], [address] Erythrocyte distribution width (RBC) [Ratio] 13.6 % Normal 11.6-14.6 [facility] Comment on above: Performed By: #### L 400.0001 #### [facility] [address] [place], [address] Hematocrit (Bld) [Volume fraction] 42.5 % Normal 40-54 [facility] Comment on above: Performed By: #### L 400.0001 #### [facility] [address] [place], [address] Hemoglobin (Bld) [Mass/Vol] 14.5 g/dL Normal 13.0-16.5 [facility] Comment on above: Performed By: #### L 400.0001 #### [facility] [address] [place], [address] IG% 0.200 Normal 0.0-0.9 [facility] Comment on above: Result Comment: IG% - Immature Granulocytes (promyelocytes, myelocytes and metamyelocytes) > 1% indicates that a LEFT SHIFT is Present. Performed By: #### L 400.0001 #### [facility] [address] [place], [address] Lymphocytes/100 WBC (Bld) 18.3 % Low 19-41 [facility] Comment on above: Performed By: #### L 400.0001 #### [facility] [address] [place], [address] MCH (RBC) [Entitic mass] 29.2 pg Normal 27.0-32.0 [facility] Comment on above: Performed By: #### L 400.0001 #### [facility] [address] [place], [address] MCHC (RBC) [Mass/Vol] 34.1 g/dL Normal 32-36 [facility] Comment on above: Performed By: #### L 400.0001 #### [facility] [address] [place], [address] MCV (RBC) [Entitic vol] 85.7 fL Normal 80-94 [facility] Comment on above: Performed By: #### L 400.0001 #### [facility] [address] [place], [address] Monocytes/100 WBC (Bld) 6.5 % Normal 0-10 [facility] Comment on above: Performed By: #### L 400.0001 #### [facility] [address] [place], [address] Neutrophils/100 WBC (Bld) 73.7 % High 47-70 [facility] Comment on above: Performed By: #### L 400.0001 #### [facility] [address] [place], [address] Nucleated RBC (Bld) [#/Vol] 0 10*3/uL Normal 0-5 [facility] Comment on above: Performed By: #### L 400.0001 #### [facility] [address] [place], [address] Platelet mean volume (Bld) [Entitic vol] 9.8 fL Normal 6.2-12.0 [facility] Comment on above: Performed By: #### L 400.0001 #### [facility] [address] [place], [address] Platelets (Bld) [#/Vol] 251 10*3/uL Normal 150-450 [facility] Comment on above: Performed By: #### L 400.0001 #### [facility] [address] [place], [address] RBC (Bld) [#/Vol] 4.96 10*6/uL Normal 4.6-6.2 [facility] Comment on above: Performed By: #### L 400.0001 #### [facility] [address] [place], [address] RDW SD 42.6 fl Normal 35.1-43.9 [facility] Comment on above: Performed By: #### L 400.0001 #### [facility] [address] [place], [address] WBC (Bld) [#/Vol] 4.8 10*3/uL Normal 4.4-11.0 [facility] Comment on above: Performed By: #### L 400.0001 #### [facility] [address] [place], [address] Eosinophil percentageOrdered By: Belle Monk on 01-04-2025 Eosinophils/100 WBC (Bld) 1.1 % 0-5 [facility] Erythrocyte distribution wid th ratioOrdered By: Belle Monk on 01-04-2025 Erythrocyte distribution width (RBC) [Ratio] 13.6 % 11.6-14.6 [facility] Erythrocyte distribution wid th standard deviationOrdered By: Belle Monk on 01-04-2025 Erythrocyte distribution width (RBC) [Ratio] 42.6 fl 35.1-43.9 [facility] Hematocrit Auto (Bld) [Volum e fraction]Ordered By: Belle Monk on 01-04-2025 Hematocrit (Bld) [Volume fraction] 42.5 % 40-54 [facility] Hemoglobin measurementOrdere d By: Belle Monk on 01-04-2025 Hemoglobin (Bld) [Mass/Vol] 14.5 g/dL 13.0-16.5 [facility] Immature granulocytes/100 WB C Auto (Bld)Ordered By: Belle Monk on 01-04-2025 Immature granulocytes/100 WBC (Bld) 0.200 % 0.0-0.9 [facility] Comment on above: IG% - Immature Granu locytes (promyelocytes, myelocytes and metamyelocytes) > 1% indicates that a LEFT SHIFT is Present. Laboratory - Chemistry and C hemistry - challengeOrdered By: Belle Monk on 01-04-2025 AST [Catalytic activity/Vol] 59 U/L High <38 [facility] Lipase measurementOrdered By : Belle Monk on 01-04-2025 Lipase [Catalytic activity/Vol] 35 U/L 13-75 [facility] Comment on above: Please note:LIPASE r evised reference range effective 22. New Lipase methodology. Expected to produce lower values than the previous assay method. NEW Reference Range: 13 - 75 U/L Liver Profileon 01-04-2025 Albumin [Mass/Vol] 4.2 g/dL Normal 3.4-4.8 [facility] Comment on above: Performed By: #### L 400.0001 #### [facility] [address] [place], [place], [id number] ALK PHOS 270 U/L High 40-129 [facility] Comment on above: Performed By: #### L 400.0001 #### [facility] [address] [place], [address] ALT [Catalytic activity/Vol] 202 U/L High <=46 [facility] Comment on above: Performed By: #### L 400.0001 #### [facility] [address] [place], [address] AST [Catalytic activity/Vol] 59 U/L High <=37 [facility] Comment on above: Performed By: #### L 400.0001 #### [facility] [address] [place], [address] Bilirubin [Mass/Vol] 6.87 mg/dL High 0.00-1.30 [facility] Comment on above: Performed By: #### L 400.0001 #### [facility] [address] [place], [address] Bilirubin.direct [Mass/Vol] 4.87 mg/dL High 0.00-0.30 [facility] Comment on above: Performed By: #### L 400.0001 #### [facility] [address] [place], [address] Globulin (S) [Mass/Vol] 2.9 g/dL Normal 2.2-4.2 [facility] Comment on above: Performed By: #### L 400.0001 #### [facility] [address] [place], [address] T PROT 7.1 g/dL Normal 5.9-8.4 [facility] Comment on above: Performed By: #### L 400.0001 #### [facility] [address] [place], [id number] MCV (mean corpuscular volume ) determinationOrdered By: Belle Monk on 01-04-2025 MCV (RBC) [Entitic vol] 85.7 fL 80-94 [facility] Mean corpuscular hemoglobin (MCH) determinationOrdered By: Belle Monk on 01-04-2025 MCH (RBC) [Entitic mass] 29.2 pg 27.0-32.0 [facility] Mean corpuscular hemoglobin concentration (MCHC) determinationOrdered By: Belle Monk on 01-04-2025 MCHC (RBC) [Mass/Vol] 34.1 g/dL 32-36 [facility] Mean platelet volume determi nationOrdered By: Belle Monk on 01-04-2025 Platelet mean volume (Bld) [Entitic vol] 9.8 fL 6.2-12.0 [facility] Monocyte percentageOrdered B y: Belle Monk on 01-04-2025 Monocytes/100 WBC (Bld) 6.5 % 0-10 [facility] Neutrophil percentageOrdered By: Belle Monk on 01-04-2025 Neutrophils/100 WBC (Bld) 73.7 % High 47-70 [facility] Nucleated red blood cell per centageOrdered By: Belle Monk on 01-04-2025 Nucleated RBC/100 WBC (Bld) [Ratio] 0 % 0-5 [facility] Platelet countOrdered By: Johnny Monk on 01-04-2025 Platelets (Bld) [#/Vol] 251 10*3/uL 150-450 [facility] RBC Auto (Bld) [#/Vol]Ordere d By: Belle Monk on 01-04-2025 RBC (Bld) [#/Vol] 4.96 10*6/uL 4.6-6.2 [facility] Serum globulin measurementOr dered By: Belle Monk on 01-04-2025 Globulin (S) [Mass/Vol] 2.9 g/dL 2.2-4.2 [facility] Serum or plasma alanine ordoñez otransferase (ALT) measurementOrdered By: Belle Monk on 01-04-2025 ALT [Catalytic activity/Vol] 202 U/L High <47 [facility] Serum or plasma albumin jenny urement (mass/volume)Ordered By: Belle Monk on 01-04-2025 Albumin [Mass/Vol] 4.2 g/dL 3.4-4.8 [facility] Serum or plasma alkaline mitzi sphatase measurementOrdered By: Belle Monk on 01-04-2025 ALP [Catalytic activity/Vol] 270 U/L High 40-129 [facility] Total proteinOrdered By: Jordon Monk on 01-04-2025 Protein [Mass/Vol] 7.1 g/dL 5.9-8.4 [facility] White blood cell (WBC) count Ordered By: Belle Monk on 01-04-2025 WBC (Bld) [#/Vol] 4.8 10*3/uL 4.4-11.0 [facility] Albumin DL <= 20 mg/L (U) [M ass/Vol]Ordered By: Belle Monk on 10-22-2024 Urine Random Microalbumin < 12.0 mg/L NO RANGE EST. [facility] Anion gap in Serum or Plasma Ordered By: Belle Monk on 10-22-2024 Anion gap [Moles/Vol] 11 mmol/L - [facility] BUN/creatinine ratioOrdered By: Belle Monk on 10-22-2024 Urea nitrogen/Creatinine [Mass ratio] 27.6 mg/mg High 10- [facility] Bilirubin, totalOrdered By: Belle Monk on 10-22-2024 Bilirubin [Mass/Vol] 0.88 mg/dL 0.00-1.30 [facility] Calculated very low density lipoprotein (VLDL) cholesterol measurementOrdered By: Belle Monk on 10-22-2024 Calculated very low density lipoprotein (VLDL) cholesterol measurement 8 mg/dL [facility] VLDL Cholesterol 8 mg/dL [facility] Carbon dioxide, total [Moles /volume] in Central venous bloodOrdered By: Belle Monk on 10-22-2024 CO2 [Moles/Vol] 25.9 mmol/L 21.0-32.0 [facility] Chloride assayOrdered By: Johnny Monk on 10-22-2024 Chloride [Moles/Vol] 103 mmol/L 98-108 [facility] Comprehensive Metabolic Prof ilon 10-22-2024 Albumin [Mass/Vol] 4.5 g/dL Normal 3.4-4.8 [facility] Comment on above: Performed By: #### L 502.0250, L500.4050, L501.9985, L500.4100 ####[facility] [address] [place], [address] Albumin/Globulin [Mass ratio] 1.6 {ratio} Normal 0.9-2.4 [facility] Comment on above: Performed By: #### L 502.0250, L500.4050, L501.9985, L500.4100 ####[facility] [address] [place], [address] ALK PHOS 94 U/L Normal 40-129 [facility] Comment on above: Performed By: #### L 502.0250, L500.4050, L501.9985, L500.4100 ####[facility] [address] [place], [address] ALT [Catalytic activity/Vol] 32 U/L Normal <=46 [facility] Comment on above: Performed By: #### L 502.0250, L500.4050, L501.9985, L500.4100 ####[facility] [address] [place], [address] AST [Catalytic activity/Vol] 22 U/L Normal <=37 [facility] Comment on above: Performed By: #### L 502.0250, L500.4050, L501.9985, L500.4100 ####[facility] [address] [place], [address] Bilirubin [Mass/Vol] 0.88 mg/dL Normal 0.00-1.30 [facility] Comment on above: Performed By: #### L 502.0250, L500.4050, L501.9985, L500.4100 ####[facility] [address] [place], [address] BUN/CRE 27.6 RATIO High 10-20 [facility] Comment on above: Performed By: #### L 502.0250, L500.4050, L501.9985, L500.4100 ####[facility] [address] [place], [address] Calcium [Mass/Vol] 9.3 mg/dL Normal 7.6-11.0 [facility] Comment on above: Performed By: #### L 502.0250, L500.4050, L501.9985, L500.4100 ####[facility] [address] [place], [address] Chloride [Moles/Vol] 103 mmol/L Normal 98-108 [facility] Comment on above: Performed By: #### L 502.0250, L500.4050, L501.9985, L500.4100 ####[facility] [address] [place], [address] CO2 [Moles/Vol] 25.9 mmol/L Normal 21.0-32.0 [facility] Comment on above: Performed By: #### L 502.0250, L500.4050, L501.9985, L500.4100 ####[facility] [address] [place], [address] Creatinine [Mass/Vol] 0.87 mg/dL Normal 0.70-1.20 [facility] Comment on above: Performed By: #### L 502.0250, L500.4050, L501.9985, L500.4100 ####[facility] [address] [place], [address] GAP 11 Normal 5-15 [facility] Comment on above: Performed By: #### L 502.0250, L500.4050, L501.9985, L500.4100 ####[facility] [address] [place], [address] GFR/1.73 sq M.predicted among non-blacks MDRD (S/P/Bld) [Vol rate/Area] 93 mL/min/{1.73_m2} Normal >60 [facility] Comment on above: Result Comment: mL/m in/1.73m2 CKD-EPI Creatinine Equation (2020) Performed By: #### L 502.0250, L500.4050, L501.9985, L500.4100 ####[facility] [address] [place], [address] Globulin (S) [Mass/Vol] 2.7 g/dL Normal 2.2-4.2 [facility] Comment on above: Performed By: #### L 502.0250, L500.4050, L501.9985, L500.4100 ####[facility] [address] [place], [address] Glucose [Mass/Vol] 149 mg/dL High 70-99 [facility] Comment on above: Performed By: #### L 502.0250, L500.4050, L501.9985, L500.4100 ####[facility] [address] [place], [address] Potassium [Moles/Vol] 4.1 mmol/L Normal 3.3-5.1 [facility] Comment on above: Performed By: #### L 502.0250, L500.4050, L501.9985, L500.4100 ####[facility] [address] [place], [address] Sodium [Moles/Vol] 140 mmol/L Normal 133-145 [facility] Comment on above: Performed By: #### L 502.0250, L500.4050, L501.9985, L500.4100 ####[facility] [address] [place], [address] T PROT 7.2 g/dL Normal 5.9-8.4 [facility] Comment on above: Performed By: #### L 502.0250, L500.4050, L501.9985, L500.4100 ####[facility] [address] [place], [address] Urea nitrogen [Mass/Vol] 24 mg/dL High 4-19 [facility] Comment on above: Performed By: #### L 502.0250, L500.4050, L501.9985, L500.4100 ####[facility] [address] [place], [address] Creatinine Unsp time (U) [Ma ss/Vol]Ordered By: Belle Monk on 10-22-2024 Creatinine (U) [Mass/Vol] 178.00 mg/dL 39.00-259. 00 [facility] GFR/1.73 sq M.predicted michelle g non-blacks MDRD (S/P/Bld) [Vol rate/Area]Ordered By: Belle Monk on 10-22-2024 Estimated GFR (MDRD) Non-Af Amer 93 >60 [facility] Comment on above: mL/min/1.73m2 CKD-EP I Creatinine Equation (2020) Glomerular filtration rate ( GFR) estimation/1.73 sq m using serum, plasma, or whole bOrdered By: Belle Monk on 10-22-2024 GFR/1.73 sq M.predicted among non-blacks MDRD (S/P/Bld) [Vol rate/Area] 93 mL/min/{1.73_m2} >60 [facility] Comment on above: mL/min/1.73m2 CKD-EP I Creatinine Equation (2020) Hemoglobin A1con 10-22-2024 HbA1c (Bld) [Mass fraction] 6.9 % Normal <=5.6 [facility] Comment on above: Performed By: #### L 502.0250, L500.4050, L501.9985, L500.4100 ####[facility] [address] [place], [address] Hemoglobin A1c percentageOrd ered By: Belle Monk on 10-22-2024 HbA1c (Bld) [Mass fraction] 6.9 % >5.7 [facility] LDL calc ser/plasOrdered By: Belle Monk on 10-22-2024 Cholesterol in LDL [Mass/Vol] 46 mg/dL [facility] Comment on above: Zpxsgsifud=951-792 m g/dL & Higher Gade=096 mg/dL or greater LDL Cholesterol, Calculated 46 mg/dL [facility] Comment on above: Slpisxoqga=287-316 m g/dL & Higher Qsrx=481 mg/dL or greater Laboratory - Chemistry and C hemistry - challengeOrdered By: Belle Monk on 10-22-2024 AST [Catalytic activity/Vol] 22 U/L <38 [facility] Lipid Profileon 10-22-2024 CHOL:HDL 2.35 Normal [facility] Comment on above: Performed By: #### L 502.0250, L500.4050, L501.9985, L500.4100 ####[facility] [address] [place], [address] Cholesterol [Mass/Vol] 94 mg/dL Normal <=200 [facility] Comment on above: Result Comment: Chol esterol level, Desirable <200 mg/dL Borderline high cholesterol 200-239 mg/dL High cholesterol >=240 mg/dL Recommendations of the NCEP Adult Treatment Panel for the following risk-cutoff thresholds for the [place] population. Performed By: #### L 502.0250, L500.4050, L501.9985, L500.4100 ####[facility] [address] [place], [address] Cholesterol in HDL [Mass/Vol] 40 mg/dL Normal [facility] Comment on above: Result Comment: Marilyn onal Cholesterol Education Program (NCEP) guidelines: <40 mg/dL: Low HDL-cholesterol (major risk factor for CHD) >= 60 mg/dL: High HDL-cholesterol (negative risk factor for CHD) HDL-cholesterol is affected by a number of factors, e.g. smoking, exercise, hormones, sex and age. Performed By: #### L 502.0250, L500.4050, L501.9985, L500.4100 ####[facility] [address] [place], [address] Cholesterol in LDL [Mass/Vol] 46 mg/dL Normal [facility] Comment on above: Result Comment: Bord olxsjx=679-649 mg/dL Higher Pveo=662 mg/dL or greater Performed By: #### L 502.0250, L500.4050, L501.9985, L500.4100 ####[facility] [facility] [address] [place], [address] Cholesterol in VLDL [Mass/Vol] 8 mg/dL Normal 5-40 [facility] Comment on above: Performed By: #### L 502.0250, L500.4050, L501.9985, L500.4100 ####[facility] [address] [place], [address] Triglyceride [Mass/Vol] 42 mg/dL Normal [facility] Comment on above: Result Comment: The drugs N-Acetylcysteine and Metamizole may falsely depress this assay. Normal range: <150 mg/dL Borderline High: 150-199 mg/dL High: 200-499 mg/dL Very High: >500 mg/dL Performed By: #### L 502.0250, L500.4050, L501.9985, L500.4100 ####[facility] [address] [place], [address] Microalb:Creat Ratio,Random URon 10-22-2024 Creatinine [Mass/Vol] 178.00 mg/dL Normal 39.00- 259. 00 [facility] Comment on above: Performed By: #### L 502.0250, L500.4050, L501.9985, L500.4100 ####[facility] [address] [place], [address] MALB:CREAT UNABLE TO CALCULATE Normal [facility] Comment on above: Performed By: #### L 502.0250, L500.4050, L501.9985, L500.4100 ####[facility] [address] [place], [address] MICROALBUMIN,UR < 12.0 Normal NO RANGE EST. [facility] Comment on above: Performed By: #### L 502.0250, L500.4050, L501.9985, L500.4100 ####[facility] [address] [place], [address] Microalbumin/creat ratio urO rdered By: Belle Monk on 10-22-2024 Urine Microalbumin/Creatinine Ratio UNABLE TO CALCULATE mg/g CRE [facility] Urine microalbumin/creatinine ratio measurement UNABLE TO CALCULATE mg/g CRE [facility] Potassium (Unsp spec) [Mass/ Vol]Ordered By: Belle Monk on 10-22-2024 Potassium [Moles/Vol] 4.1 mmol/L 3.3-5.1 [facility] Potassium measurement (mass/ volume)Ordered By: Belle Monk on 10-22-2024 Potassium (Unsp spec) [Mass/Vol] 4.1 mmol/L 3.3-5.1 [facility] Random urine creatinine jenny urement (mass/volume)Ordered By: Belle Monk on 10-22-2024 Creatinine Unsp time (U) [Mass/Vol] 178.00 mg/dL 39.00-259. 00 [facility] Screening total cholesterol/ high density lipoprotein (HDL) cholesterol ratioOrdered By: Belle Monk on 10-22-2024 Cholesterol.total/Choles terol in HDL [Mass ratio] 2.35 {ratio} [facility] Serum creatinine measurement (mass/volume)Ordered By: Belle Monk on 10-22-2024 Creatinine [Mass/Vol] 0.87 mg/dL 0.70-1.20 [facility] Serum globulin measurementOr dered By: Belle Monk on 10-22-2024 Globulin (S) [Mass/Vol] 2.7 g/dL 2.2-4.2 [facility] Serum glucose measurement (m ass/volume)Ordered By: Belle Monk on 10-22-2024 Glucose [Mass/Vol] 149 mg/dL High 70-99 [facility] Serum or plasma alanine ordoñez otransferase (ALT) measurementOrdered By: Belle Monk on 10-22-2024 ALT [Catalytic activity/Vol] 32 U/L <47 [facility] Serum or plasma albumin jenny urement (mass/volume)Ordered By: Belle Monk on 10-22-2024 Albumin [Mass/Vol] 4.5 g/dL 3.4-4.8 [facility] Serum or plasma albumin/glob ulin mass ratioOrdered By: Belle Monk on 10-22-2024 Albumin/Globulin [Mass ratio] 1.6 {ratio} 0.9-2.4 [facility] Serum or plasma alkaline mitzi sphatase measurementOrdered By: Belle Monk on 10-22-2024 ALP [Catalytic activity/Vol] 94 U/L 40-129 [facility] Serum or plasma calcium jenny urement (mass/volume)Ordered By: Belle Monk on 10-22-2024 Calcium [Mass/Vol] 9.3 mg/dL 7.6-11.0 [facility] Serum or plasma cholesterol in HDL measurement (mass/volume)Ordered By: Belle Monk on 10-22-2024 Cholesterol in HDL [Mass/Vol] 40 mg/dL >40 [facility] Comment on above: National Cholesterol Education Program (NCEP) guidelines:<40 mg/dL: Low HDL-cholesterol (major risk factor for CHD)>= 60 mg/dL: High HDL-cholesterol (negative risk factor for CHD)HDL-cholesterol is affected by a number of factors, e.g. smoking, exercise, hormones, sex and age. Serum or plasma cholesterol measurement (mass/volume)Ordered By: Belle Monk on 10-22-2024 Cholesterol [Mass/Vol] 94 mg/dL <201 [facility] Comment on above: Cholesterol level, D esirable <200 mg/dLBorderline high cholesterol 200-239 mg/dLHigh cholesterol >=240 mg/dLRecommendations of the NCEP Adult Treatment Panel for the following risk-cutoff thresholds for the [place] population. Serum or plasma urea nitroge n measurement (mass/volume)Ordered By: Belle Monk on 10-22-2024 Urea nitrogen [Mass/Vol] 24 mg/dL High 4-19 [facility] Sodium levelOrdered By: Linda Monk on 10-22-2024 Sodium [Moles/Vol] 140 mmol/L 133-145 [facility] Total proteinOrdered By: Jordon Monk on 10-22-2024 Protein [Mass/Vol] 7.2 g/dL 5.9-8.4 [facility] Triglycerides measurementOrd ered By: Belle Monk on 10-22-2024 Triglyceride [Mass/Vol] 42 mg/dL <199 [facility] Comment on above: The drugs N-Acetylcy steine and Metamizole may falsely depress this assay. Normal range: <150 mg/dLBorderline High: 150-199 mg/dLHigh: 200-499 mg/dLVery High: >500 mg/dL Urine albumin measurement wi detection limit of 20 mg/L or less (mass/volume)Ordered By: Belle Monk on 10-22-2024 Albumin DL <= 20 mg/L (U) [Mass/Vol] < 12.0 mg/L NO RANGE EST. [facility] 12 Lead EKGon 07-20-2024 12 Lead EKG [facility] [address] [place] [address] 12 Lead EKG 07/20/24 1617 MR#: [id number] Acct: [id number] Name: ERICK GAUTAM Rep #: [id number] : 1955 69 From: Hector Brito MD [...] Abnormal ECG Confirmed by OBDULIO HERRERA, HECTOR ([id number]), health editor NIYA MCDOWELL ([id number]) on 07/22/2024 6:11:58 AM Referred By: Confirmed By: HECTOR BRITO MD 07/22/24 0611 Date Hector Brito MD CC: Dr. Gilbert Thompson MD; No Primary Care Physician Signed Normal [facility] Absolute neutrophil countOrd ered By: Gilbert Thompson on 07-20-2024 Neutrophils (Bld) [#/Vol] 4.5 10*3/uL 2.0-7.7 [facility] Basic Metabolic Profile (BMP )on 07-20-2024 BUN/CRE 15.2 RATIO Normal 10-20 [facility] Comment on above: Performed By: #### L 3100.5440 #### [facility] [address] [place], [address] CA,Total 9.5 mg/dL Normal 8.5-10.1 [facility] Comment on above: Performed By: #### L 3100.5440 #### [facility] [address] [place], [address] Chloride [Moles/Vol] 102 mmol/L Normal 98-107 [facility] Comment on above: Performed By: #### L 3100.5440 #### [facility] [address] [place], [address] CO2 [Moles/Vol] 29.0 mmol/L Normal 21.0-32.0 [facility] Comment on above: Performed By: #### L 3100.5440 #### [facility] [address] [place], [address] Creatinine [Mass/Vol] 1.12 mg/dL Normal 0.70-1.30 [facility] Comment on above: Result Comment: The validity of the calculated GFR GFRAA in patients over 70 years has not been determined. Clinical correlation is essential. Performed By: #### L 3100.5440 #### [facility] [address] [place], [address] ECRCL 74.43 ml/min Normal [facility] Comment on above: Performed By: #### L 3100.5440 #### [facility] [address] [place], [address] EST GFR - AA 84 mL/min Normal >60 [facility] Comment on above: Result Comment: Afri can [place] GFR Calc Performed By: #### L 3100.5440 #### [facility] [address] [place], [address] GAP 6 Normal 5-15 [facility] Comment on above: Performed By: #### L 3100.5440 #### [facility] [address] [place], [address] GFR/1.73 sq M.predicted among non-blacks MDRD (S/P/Bld) [Vol rate/Area] 69 mL/min/{1.73_m2} Normal >60 [facility] Comment on above: Result Comment: Non- GFR Calc Performed By: #### L 3100.5440 #### [facility] [address] [place], [address] Glucose [Mass/Vol] 474 mg/dL Invalid Interpretation Code 74-106 [facility] Comment on above: Result Comment: Crit ical Result(s) Called at: 17:22:04 07/20/2024 by: HAFSA RAE TO LEONARDA HICKS. Results read back by same. Glucose result greater than or equal to 200 mg/dL suggests DIABETES MELLITUS per A.D.A. criteria. Performed By: #### L 3100.5440 #### [facility] [address] [place], [address] Potassium [Moles/Vol] 3.8 mmol/L Normal 3.5-5.1 [facility] Comment on above: Performed By: #### L 3100.5440 #### [facility] [address] [place], [address] Sodium [Moles/Vol] 137 mmol/L Normal 136-145 [facility] Comment on above: Performed By: #### L 3100.5440 #### [facility] [address] [place], [address] Urea nitrogen [Mass/Vol] 17 mg/dL Normal 7-18 [facility] Comment on above: Performed By: #### L 3100.5440 #### [facility] [address] [place], [address] BUN Normal 7-18 [facility] Comment on above: Result Comment: DUPL ICATE ORDER Performed By: #### L 3100.5440 #### [facility] [address] [place], [address] BUN/CRE Normal 10-20 [facility] Comment on above: Result Comment: DUPL ICATE ORDER Performed By: #### L 3100.5440 #### [facility] [address] [place], [address] CA,Total Normal 8.5-10.1 [facility] Comment on above: Result Comment: DUPL ICATE ORDER Performed By: #### L 3100.5440 #### [facility] [address] [place], [address] CL Normal 98-107 [facility] Comment on above: Result Comment: DUPL ICATE ORDER Performed By: #### L 3100.5440 #### [facility] [address] [place], [address] CO2 Normal 21.0-32.0 [facility] Comment on above: Result Comment: DUPL ICATE ORDER Performed By: #### L 3100.5440 #### [facility] [address] [place], [address] CREAT,SERUM Normal 0.70-1.30 [facility] Comment on above: Result Comment: DUPL ICATE ORDER Performed By: #### L 3100.5440 #### [facility] [address] [place], [address] EST GFR Normal >60 [facility] Comment on above: Result Comment: DUPL ICATE ORDER Performed By: #### L 3100.5440 #### [facility] [address] [place], [address] EST GFR - AA Normal >60 [facility] Comment on above: Result Comment: DUPL ICATE ORDER Performed By: #### L 3100.5440 #### [facility] [address] [place], [address] GAP Normal 5-15 [facility] Comment on above: Result Comment: DUPL ICATE ORDER Performed By: #### L 3099.5440 #### [facility] [address] [place], [address] GLU Normal 74-106 [facility] Comment on above: Result Comment: DUPL ICATE ORDER Performed By: #### L 3101.5440 #### [facility] [address] [place], [address] Potassium Normal 3.5-5.1 [facility] Comment on above: Result Comment: DUPL ICATE ORDER Performed By: #### L 0.5440 #### [facility] [address] [place], [address] Basic Metabolic Profile (BMP) Normal 136-145 [facility] Comment on above: Result Comment: DUPL ICATE ORDER Performed By: #### L 3100.5440 #### [facility] [address] [place], [address] Basophil percentageOrdered B y: Gilbert Thompson on 07-20-2024 Basophils/100 WBC (Bld) 0.3 % 0-1 [facility] Bedside Glucoseon 07-20-2024 FINGERSTICK GLU 483 mg/dL Invalid Interpretation Code 74106 [facility] Comment on above: Result Comment: Dr Selin ly Followed MANAGEMENT OF PATIENT CARE PER NURSING PROTOCOL Performed By: #### L 501.080 ####[facility] [address] [place], [address] Bilirubin Test strip Ql (U)O rdered By: Gilbert Thompson on 07-20-2024 Bilirubin Ql (U) Negative Negative [facility] Blood urea nitrogen (BUN)/cr eatinine ratioOrdered By: Gilbert Thompson on 07-20-2024 Urea nitrogen/Creatinine [Mass ratio] 15.2 mg/mg - [facility] CBC W/Diff, Automatedon 06-22 Absolute Lymph 1.49 X10 3/uL Normal 0.83-4.51 [facility] Comment on above: Performed By: #### L 5902.5440 #### [facility] [address] [place], [address] Absolute Neut 4.5 X10 3/uL Normal 2.0-7.7 [facility] Comment on above: Performed By: #### L 3100.5440 #### [facility] [address] [place], [address] Basophils/100 WBC (Bld) 0.3 % Normal 0-1 [facility] Comment on above: Performed By: #### L 3100.5440 #### [facility] [address] [place], [address] Eosinophils/100 WBC (Bld) 1.4 % Normal 0-5 [facility] Comment on above: Performed By: #### L 9916.5440 #### [facility] [address] [place], [address] Erythrocyte distribution width (RBC) [Ratio] 12.5 % Normal 11.6-14.6 [facility] Comment on above: Performed By: #### L 3100.5440 #### [facility] [address] [place], [address] Hematocrit (Bld) [Volume fraction] 46.1 % Normal 40-54 [facility] Comment on above: Performed By: #### L 3100.5440 #### [facility] [address] [place], [address] Hemoglobin (Bld) [Mass/Vol] 16.7 g/dL High 13.0-16.5 [facility] Comment on above: Performed By: #### L 3100.5440 #### [facility] [address] [place], [address] IG% 0.300 Normal 0.0-0.9 [facility] Comment on above: Result Comment: IG% - Immature Granulocytes (promyelocytes, myelocytes and metamyelocytes) > 1% indicates that a LEFT SHIFT is Present. Performed By: #### L 3100.5440 #### [facility] [address] [place], [address] Lymphocytes/100 WBC (Bld) 22.5 % Normal 19-41 [facility] Comment on above: Performed By: #### L 3100.5440 #### [facility] [address] [place], [address] MCH (RBC) [Entitic mass] 30.8 pg Normal 27.0-32.0 [facility] Comment on above: Performed By: #### L 3100.5440 #### [facility] [address] [place], [address] MCHC (RBC) [Mass/Vol] 36.2 g/dL High 32-36 [facility] Comment on above: Performed By: #### L 3100.5440 #### [facility] [address] [place], [address] MCV (RBC) [Entitic vol] 84.9 fL Normal 80-94 [facility] Comment on above: Performed By: #### L 3099.5440 #### [facility] [address] [place], [address] Monocytes/100 WBC (Bld) 6.8 % Normal 0-10 [facility] Comment on above: Performed By: #### L 3099.5440 #### [facility] [address] [place], [address] Neutrophils/100 WBC (Bld) 68.7 % Normal 47-70 [facility] Comment on above: Performed By: #### L 3100.5440 #### [facility] [address] [place], [address] Nucleated RBC (Bld) [#/Vol] 0 10*3/uL Normal 0-5 [facility] Comment on above: Performed By: #### L 3099.5440 #### [facility] [address] [place], [address] Platelet mean volume (Bld) [Entitic vol] 9.1 fL Normal 6.2-12.0 [facility] Comment on above: Performed By: #### L 3099.5440 #### [facility] [address] [place], [address] Platelets (Bld) [#/Vol] 207 10*3/uL Normal 150-450 [facility] Comment on above: Performed By: #### L 310.5440 #### [facility] [address] [place], [address] RBC (Bld) [#/Vol] 5.43 10*6/uL Normal 4.6-6.2 [facility] Comment on above: Performed By: #### L 3100.5440 #### [facility] [address] [place], [address] RDW SD 37.6 fl Normal 35.1-43.9 [facility] Comment on above: Performed By: #### L 1813.0906 #### [facility] [address] [place], [address] WBC (Bld) [#/Vol] 6.6 10*3/uL Normal 4.4-11.0 [facility] Comment on above: Performed By: #### L 6379.6101 #### [facility] [address] [place], [place], [address] Carbon dioxide measurementOr dered By: Gilbert Thompson on 07-20-2024 CO2 [Moles/Vol] 29.0 mmol/L 21.0-32.0 [facility] Chloride measurementOrdered By: Gilbert Thompson on 07-20-2024 Chloride [Moles/Vol] 102 mmol/L 98-107 [facility] Emergency Department Summary on 07-20-2024 Emergency Department Summary [facility] Medical Records Department [address] [place] [address] Emergency Department Summary 07/20/24 MR#: [id number] Acct: [id number] Name: ERICK GAUTAM Rep #: [id number] : 1955 69 From: Gilbert Thompson MD PCP: Care Physician,No Primary Status:DEP ER Location: ED HPI History of Present Illness Chief Complaint: Hyperglycemia PFSH PFSH Medical History Cataract Home Medications [...] Endocrinology: Reports polydipsia, polyphagia and polyuria Hematologic/Lymphatic Hematologic/Lymphatic: Reports systems reviewed and no addt'l complaints, [...] % (Auto) 68.7 Lymph % (Auto) 22.5 Spencer % (Auto) 6.8 Eos % (Auto) 1.4 Baso % (Auto) 0.3 Absolute Neuts (auto) 4.5 Absolute Lymphs (auto) 1.49 Nucleated RBC % 0 Sodium 137 Cancelled Potassium 3.8 Cancelled Chloride 102 Carbon Dioxide Anion Gap BUN Creatinine Estim Creat Clear Calc Est GFR (MDRD) Af Amer Est GFR (MDRD) Non-Af BUN/Creatinine Ratio Glucose Calcium Urine Color Urine Clarity Urine pH Ur Specific [place] Urine Protein Urine Glucose (UA) Urine Ketones [...] (Auto) Neut % (Auto) Lymph % (Auto) Spencer % (Auto) Eos % (Auto) Baso % (Auto) Absolute Neuts (auto) Absolute Lymphs (auto) Nucleated RBC % Sodium Potassium Chloride Cancelled Carbon Dioxide 29.0 Cancelled Anion Gap 6 Cancelled BUN 17 Creatinine Estim Creat Clear Calc Est GFR (MDRD) Af Amer Est GFR (MDRD) Non-Af BUN/Creatinine Ratio Glucose Calcium Urine Color Urine Clarity Urine pH Ur Specific [place] Urine Protein Urine Glucose ( (more content not included)... Normal [facility] Emergency Department Summary [facility] Medical Records Department [address] [place] [address] Emergency Department Summary 07/20/24 MR#: [id number] Acct: [id number] Name: ERICK GAUTAM Rep #: [id number] : 1955 69 From: Gilbert Thompson MD PCP: Care Physician,No Primary Status:REG ER Location: ED HPI History of Present Illness Chief Complaint: Hyperglycemia Detail of Chief Complaint: Blood sugar greater than 500 Informant: patient and spouse/S.O. 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 Prior similar symptoms: No Recent Illness/Hospitalization: No PFSH [facility] Medical History Cataract Home Medications ???Medication ???Instructions [...] polyphagia and polyuria; Denies cold intolerance Hematologic/Lymphatic Hematologic/Lymphatic: Reports systems reviewed and no addt'l complaints, [...] bilaterally Sensor (more content not included)... Normal [facility] Eosinophil percentageOrdered By: Gilbert Thompson on 07-20-2024 Eosinophils/100 WBC (Bld) 1.4 % 0-5 [facility] Epithelial cells.squamous LM Ql (Urine sed)Ordered By: Gilbert Thompson on 07-20-2024 Epithelial cells.squamous LM.HPF (Urine sed) [#/Area] 0 /[HPF] 0-5 [facility] Erythrocyte distribution wid th (RBC) [Ratio]Ordered By: Gilbert Thompson on 07-20-2024 Erythrocyte distribution width (RBC) [Entitic vol] 37.6 fL 35.1-43.9 [facility] Erythrocyte distribution wid th ratioOrdered By: Gilbert Thompson on 07-20-2024 Erythrocyte distribution width (RBC) [Ratio] 12.5 % 11.6-14.6 [facility] Estimated glomerular filtrat ion rate (GFR) AmericanOrdered By: Gilbert Thompson on 07-20-2024 Estimated GFR (MDRD) Amer 84 mL/min >60 [facility] Comment on above: GFR Calc Estimation of creatinine immanuel aranceOrdered By: Gilbert Thompson on 07-20-2024 Estimated Creatinine Clearance Calc 74.43 ml/min [facility] Glomerular filtration rate ( GFR) estimationOrdered By: Gilbert Thompson on 07-20-2024 Estimated GFR (MDRD) Non-Af Amer 69 mL/min >60 [facility] Comment on above: Non- GFR Calc Glucose Ql (U)Ordered By: Vanita Thompson on 07-20-2024 Glucose (U) [Mass/Vol] 1000 mg/dL High Normal [facility] Glucose measurementOrdered B y: Gilbert Thompson on 07-20-2024 Glucose [Mass/Vol] 474 mg/dL High 74-106 [facility] Comment on above: Critical Result(s) C alled at: 17:22:04 07/20/2024 by: HAFSA RAE TO LEONARDA HICKS. Results read back by same.Glucose result greater than or equal to 200 mg/dLsuggests DIABETES MELLITUS per A.D.A. criteria. Glucose measurement at bedsi deOrdered By: Gilbert Thompson on 07-20-2024 Bedside Glucose (Misc Panel) 483 mg/dL High 74-106 [facility] Comment on above: Dr Benson FollowedMA NAGEMENT OF PATIENT CARE PER NURSING PROTOCOL Hematocrit Auto (Bld) [Volum e fraction]Ordered By: Gilbert Thompson on 07-20-2024 Hematocrit (Bld) [Volume fraction] 46.1 % 40-54 [facility] Hemoglobin measurementOrdere d By: Gilbert Thompson on 07-20-2024 Hemoglobin (Bld) [Mass/Vol] 16.7 g/dL High 13.0-16.5 [facility] Immature granulocytes/100 WB C Auto (Bld)Ordered By: Gilbert Thompson on 07-20-2024 Immature granulocytes/100 WBC (Bld) 0.300 % 0.0-0.9 [facility] Comment on above: IG% - Immature Granu locytes (promyelocytes, myelocytes and metamyelocytes) > 1% indicates that a LEFT SHIFT is Present. Ketones Test strip Ql (U)Ord ered By: Gilbert Thompson on 07-20-2024 Ketones Ql (U) 5 mg/dl High Negative [facility] Lymphocytes Auto (Unsp spec) [#/Vol]Ordered By: Gilbertselin Thompson on 07-20-2024 Lymphocytes (Bld) [#/Vol] 1.49 10*3/uL 0.83-4.51 [facility] Lymphocytes/100 WBC Auto (Un sp spec)Ordered By: Gilbert Thompson on 07-20-2024 Lymphocytes/100 WBC (Bld) 22.5 % 19-41 [facility] MCV (mean corpuscular volume ) determinationOrdered By: Gilbert Thompson on 07-20-2024 MCV (RBC) [Entitic vol] 84.9 fL 80-94 [facility] Mean corpuscular hemoglobin (MCH) determinationOrdered By: Gilbert Thompson on 07-20-2024 MCH (RBC) [Entitic mass] 30.8 pg 27.0-32.0 [facility] Mean corpuscular hemoglobin concentration (MCHC) determinationOrdered By: Gilbert Thompson on 07-20-2024 MCHC (RBC) [Mass/Vol] 36.2 g/dL High 32-36 [facility] Mean platelet volume determi nationOrdered By: Gilbert Thmopson on 07-20-2024 Platelet mean volume (Bld) [Entitic vol] 9.1 fL 6.2-12.0 [facility] Microscopic analysis of urin e for red blood cells (RBC)Ordered By: Gilbert Thompson on 07-20-2024 Urine RBC 0 SEEN /hpf 0-5 [facility] Monocyte percentageOrdered B y: Gilbert Thompson on 07-20-2024 Monocytes/100 WBC (Bld) 6.8 % 0-10 [facility] Mucus LM Ql (Urine sed)Order ed By: Gilbert Thompson on 07-20-2024 Mucus Ql (Urine sed) 0 SEEN /hpf [facility] Neutrophil percentageOrdered By: Gilbertselin Thompson on 07-20-2024 Neutrophils/100 WBC (Bld) 68.7 % 47-70 [facility] Nitrite Test strip Ql (U)Ord ered By: Gilbert Thompson on 07-20-2024 Nitrite Ql (U) Negative Negative [facility] Nucleated red blood cell per centageOrdered By: Gilbert Goldsmitho on 07-20-2024 Nucleated RBC/100 WBC (Bld) [Ratio] 0 % 0-5 [facility] Platelet countOrdered By: Vanita Thompson on 07-20-2024 Platelets (Bld) [#/Vol] 207 10*3/uL 150-450 [facility] Potassium measurementOrdered By: Gilbert Thompson on 07-20-2024 Potassium [Moles/Vol] 3.8 mmol/L 3.5-5.1 [facility] Protein Test strip Ql (U)Ord ered By: Gilbert Thompson on 07-20-2024 Protein Ql (U) Negative Negative [facility] RBC Auto (Bld) [#/Vol]Ordere d By: Gilbert Thompson on 07-20-2024 RBC (Bld) [#/Vol] 5.43 10*6/uL 4.6-6.2 [facility] Serum anion gap measurementO rdered By: Gilbert Thompson on 07-20-2024 Anion gap [Moles/Vol] 6 mmol/L 5-15 [facility] Serum or plasma calcium jenny urement (mass/volume)Ordered By: Gilbert Thompson on 07-20-2024 Calcium [Mass/Vol] 9.5 mg/dL 8.5-10.1 [facility] Serum or plasma creatinine m easurement (mass/volume)Ordered By: Gilbert Thompson on 07-20-2024 Creatinine [Mass/Vol] 1.12 mg/dL 0.70-1.30 [facility] Comment on above: The validity of the calculated GFR & GFRAA in patients over 70 years has not been determined. Clinical correlation is essential. Serum or plasma urea nitroge n measurement (mass/volume)Ordered By: Gilbert Thompson on 07-20-2024 Urea nitrogen [Mass/Vol] 17 mg/dL 7-18 [facility] Sodium levelOrdered By: Gilbert Thompson on 07-20-2024 Sodium [Moles/Vol] 137 mmol/L 136-145 [facility] Urinalysis, Completeon 07-20 WBC 0-5 SEEN Normal 0-5 [facility] Comment on above: Order Comment: COLOR OF URINE MAY AFFECT DIPSTICK RESULTS. CLEAN CATCH Performed By: #### L 400.0001 #### [facility] [address] [place], [address] BACTERIA 0 SEEN Normal None Seen [facility] Comment on above: Order Comment: COLOR OF URINE MAY AFFECT DIPSTICK RESULTS. CLEAN CATCH Performed By: #### L [id number] #### [facility] [address] [place], [address] EPI,SQUAMOUS 0 SEEN Normal 0-5 [facility] Comment on above: Order Comment: COLOR OF URINE MAY AFFECT DIPSTICK RESULTS. CLEAN CATCH Performed By: #### L [id number] #### [facility] [address] [place], [address] Mucus Ql (Urine sed) 0 SEEN Normal [facility] Comment on above: Order Comment: COLOR OF URINE MAY AFFECT DIPSTICK RESULTS. CLEAN CATCH Performed By: #### L [id number] #### [facility] [address] [place], [address] RBC 0 SEEN Normal 0-5 [facility] Comment on above: Order Comment: COLOR OF URINE MAY AFFECT DIPSTICK RESULTS. CLEAN CATCH Performed By: #### L [id number] #### [facility] [address] [place], [address] Urine blood detectionOrdered By: Gilbert Jay on 07-20-2024 Urine Occult Blood Negative Negative [facility] Urine clarityOrdered By: Gilbert Thompson on 07-20-2024 Clarity (U) Clear Clear [facility] Urine color determinationOrd ered By: Gilbert Thompson on 07-20-2024 Color (U) Yellow Yellow [facility] Urine leukocyte esterase det ection by dipstickOrdered By: Gilbert Thompson on 07-20-2024 Leukocyte esterase Test strip Ql (U) Negative Negative [facility] Urine pHOrdered By: Gilbert payton on 07-20-2024 pH (U) 6.0 [pH] 5.0 - 8.0 [facility] Urine sediment bacteria coun t by microscopy (number/high power field)Ordered By: Gilbert Thompson on 07-20-2024 Bacteria LM.HPF (Urine sed) [#/Area] 0 /[HPF] None Seen [facility] Urine specific gravity measu rementOrdered By: Gilbertselin Thompson on 07-20-2024 Specific gravity (U) [Rel density] 1.010 1.002-1.03 0 [facility] Urobilinogen Ql (U)Ordered B y: Gilbert Thompson on 07-20-2024 Urine Urobilinogen Normal mg/dl Normal [facility] White blood cell (WBC) count Ordered By: Gilbert Thompson on 07-20-2024 WBC (Bld) [#/Vol] 6.6 10*3/uL 4.4-11.0 [facility] White blood cell countOrdere d By: Gilbert Thompson on 07-20-2024 Urine WBC 0-5 SEEN /hpf 0-5 [facility] Vital Signs Date Time Vital Sign Value Performing Clinician Facility 02-21-2025 13:42-0400 Body height 180.[address] Belle Monk MD Work Phone: [facility] 02-21-2025 13:42-0400 Body mass index (BMI) [Ratio] 25.1 kg/m2 Dr. Belle oMnk MD Work Phone: [facility] 02-21-2025 13:42-0400 Body temperature 98.1 [degF] Dr. Belle Monk MD Work Phone: [facility] 02-21-2025 13:42-0400 Body weight 81.[address] Belle Monk MD Work Phone: [facility] 02-21-2025 13:42-0400 Diastolic blood pressure 68 mm[Hg] Dr. Belle Monk MD Work Phone: [facility] 02-21-2025 13:42-0400 Heart rate 90 /min Dr. Belle Monk MD Work Phone: [facility] 02-21-2025 13:42-0400 Respiratory rate 16 /min Dr. Belle Monk MD Work Phone: [facility] 02-21-2025 13:42-0400 SaO2% (BldA) [Mass fraction] 97 % Dr. Belle Monk MD Work Phone: [facility] 02-21-2025 13:42-0400 Systolic blood pressure 133 mm[Hg] Dr. Belle Monk MD Work Phone: [facility] 02-04-2025 12:16-0400 Body height 177.8 cm Baldomero Clemons MD Work Phone: [facility] 02-04-2025 12:16-0400 Body temperature 98.01 [degF] Baldomero Clemons MD Work Phone: [facility] 02-04-2025 12:16-0400 Diastolic blood pressure 81 mm[Hg] Baldomero Clemons MD Work Phone: [facility] 02-04-2025 12:16-0400 Heart rate 68 /min Baldomero Clemons MD Work Phone: [facility] 02-04-2025 12:16-0400 Respiratory rate 14 /min Baldomero Clemons MD Work Phone: [facility] 02-04-2025 12:16-0400 SaO2% (BldA) [Mass fraction] 99 % Baldomero Clemons MD Work Phone: [facility] 02-04-2025 12:16-0400 Systolic blood pressure 147 mm[Hg] Baldomero Clemons MD Work Phone: [facility] 01-27-2025 14:36-0400 Body height 177.8 cm Baldomero Alejo MD Work Phone: [facility] 01-27-2025 14:36-0400 Body mass index (BMI) [Ratio] 25.43 kg/m2 Baldomero Alejo MD Work Phone: [facility] 01-27-2025 14:36-0400 Body temperature 98.49 [degF] Baldomero Alejo MD Work Phone: [facility] 01-27-2025 14:36-0400 Body weight 80.38 kg Baldomero Alejo MD Work Phone: [facility] Comment on above: shoes off 01-27-2025 14:36-0400 Diastolic blood pressure 70 mm[Hg] Baldomero Alejo MD Work Phone: [facility] 01-27-2025 14:36-0400 Heart rate 79 /min Baldomero Alejo MD Work Phone: [facility] 01-27-2025 14:36-0400 Respiratory rate 14 /min Baldomero Alejo MD Work Phone: [facility] 01-27-2025 14:36-0400 SaO2% (BldA) [Mass fraction] 99 % Baldomero Alejo MD Work Phone: [facility] 01-27-2025 14:36-0400 Systolic blood pressure 136 mm[Hg] Baldomero Alejo MD Work Phone: [facility] 01-20-2025 10:15-0400 Body height 180.[address] Belle Monk MD Work Phone: [facility] 01-20-2025 10:15-0400 Body mass index (BMI) [Ratio] 25 kg/m2 Dr. Belle Monk MD Work Phone: [facility] 01-20-2025 10:15-0400 Body temperature 98.2 [degF] Dr. Belle Monk MD Work Phone: [facility] 01-20-2025 10:15-0400 Body weight 81.[address] Belle Monk MD Work Phone: [facility] 01-20-2025 10:15-0400 Diastolic blood pressure 82 mm[Hg] Dr. Belle Monk MD Work Phone: [facility] 01-20-2025 10:15-0400 Heart rate 69 /min Dr. Belle Monk MD Work Phone: [facility] 01-20-2025 10:15-0400 Respiratory rate 18 /min Dr. Belle Monk MD Work Phone: [facility] 01-20-2025 10:15-0400 SaO2% (BldA) [Mass fraction] 98 % Dr. Belle Monk MD Work Phone: [facility] 01-20-2025 10:15-0400 Systolic blood pressure 143 mm[Hg] Dr. Belle Monk MD Work Phone: [facility] 01-14-2025 12:46-0400 Body temperature 97.5 [degF] Dr. Belle Monk MD Work Phone: [facility] 01-14-2025 12:46-0400 Diastolic blood pressure 71 mm[Hg] Dr. Belle Monk MD Work Phone: [facility] 01-14-2025 12:46-0400 Heart rate 62 /min Dr. Belle Monk MD Work Phone: [facility] 01-14-2025 12:46-0400 Respiratory rate 16 /min Dr. Belle Monk MD Work Phone: [facility] 01-14-2025 12:46-0400 SaO2% (BldA) [Mass fraction] 100 % Dr. Belle Monk MD Work Phone: [facility] 01-14-2025 12:46-0400 Systolic blood pressure 123 mm[Hg] Dr. Belle Monk MD Work Phone: [facility] 01-13-2025 12:57-0400 Body height 180.[address] Belle Monk MD Work Phone: [facility] 01-13-2025 12:57-0400 Body mass index (BMI) [Ratio] 25.7 kg/m2 Dr. Belle Monk MD Work Phone: [facility] 01-13-2025 12:57-0400 Body weight 83.[address] Belle Monk MD Work Phone: [facility] 01-12-2025 14:08-0400 Body temperature 97 [degF] Dr. Belle Monk MD Work Phone: [facility] 01-12-2025 14:08-0400 Diastolic blood pressure 88 mm[Hg] Dr. Belle Monk MD Work Phone: [facility] 01-12-2025 14:08-0400 Heart rate 76 /min Dr. Belle Monk MD Work Phone: [facility] 01-12-2025 14:08-0400 Respiratory rate 20 /min Dr. Belle Monk MD Work Phone: [facility] 01-12-2025 14:08-0400 SaO2% (BldA) [Mass fraction] 99 % Dr. Belle Monk MD Work Phone: [facility] 01-12-2025 14:08-0400 Systolic blood pressure 155 mm[Hg] Dr. Belle Monk MD Work Phone: [facility] 01-12-2025 09:12-0400 Body height 180.[address] Belle Monk MD Work Phone: [facility] 01-12-2025 09:12-0400 Body mass index (BMI) [Ratio] 25.7 kg/m2 Dr. Belle Monk MD Work Phone: [facility] 01-12-2025 09:12-0400 Body weight 83.[address] Belle Monk MD Work Phone: [facility] 01-12-2025 08:53-0400 Body height 180.[address] Belle Monk MD Work Phone: [facility] 01-12-2025 08:53-0400 Body mass index (BMI) [Ratio] 25.7 kg/m2 Dr. Belle Monk MD Work Phone: [facility] 01-12-2025 08:53-0400 Body temperature 97.6 [degF] Dr. Belle Monk MD Work Phone: [facility] 01-12-2025 08:53-0400 Body weight 83.[address] Belle Monk MD Work Phone: [facility] 01-12-2025 08:53-0400 Diastolic blood pressure 89 mm[Hg] Dr. Belle Monk MD Work Phone: [facility] 01-12-2025 08:53-0400 Heart rate 81 /min Dr. Belle Monk MD Work Phone: [facility] 01-12-2025 08:53-0400 Respiratory rate 18 /min Dr. Belle Monk MD Work Phone: [facility] 01-12-2025 08:53-0400 SaO2% (BldA) [Mass fraction] 98 % Dr. Belle Monk MD Work Phone: [facility] 01-12-2025 08:53-0400 Systolic blood pressure 151 mm[Hg] Dr. Belle Monk MD Work Phone: [facility] 07-20-2024 19:58-0500 Body temperature 97.9 [degF] No Primary Care Physician [facility] 07-20-2024 19:58-0500 Diastolic blood pressure 102 mm[Hg] No Primary Care Physician [facility] 07-20-2024 19:58-0500 Heart rate 79 /min No Primary Care Physician [facility] 07-20-2024 19:58-0500 Respiratory rate 12 /min No Primary Care Physician [facility] 07-20-2024 19:58-0500 SaO2% (BldA) [Mass fraction] 94 % No Primary Care Physician [facility] 07-20-2024 19:58-0500 Systolic blood pressure 147 mm[Hg] No Primary Care Physician [facility] 07-20-2024 15:06-0500 Body height 180.34 cm No Primary Care Physician [facility] 07-20-2024 15:06-0500 Body mass index (BMI) [Ratio] 30.2 kg/m2 No Primary Care Physician [facility] 07-20-2024 15:06-0500 Body weight 98.4 kg No Primary Care Physician [facility] Encounters Encounter Date Encounter Type Care Provider Facility Start: 02-21-[address] Jose Sawyer MD -[facility] Start: 02-21-2025 End: 02-21-[address] Belle Monk MD Work Phone: -[facility] Start: 02-21-2025 End: 02-21-[address] Petra Sawyer MD -[facility] Work Phone: Start: 02-10-2025 End: 02-10-2025 Telephone encounter Araceli VILA Work Phone: Division of Surgical Oncology Comment on above: Appointment Start: 02-04-2025 ambulatory BALDOMERO CLEMONS Facility: [facility] Start: 02-04-2025 End: 02-04-2025 Subsequent hospital visit by physician Baldomero Clemons MD Work Phone: Department of Radiology Comment on above: Arrived Start: 02-04-2025 End: 02-04-2025 Subsequent hospital visit by physician Baldomero Clemons MD Work Phone: [facility] Start: 02-04-2025 ambulatory BALDOMERO CLEMONS Facility: [facility] Start: 02-02-2025 End: 02-02-2025 Patient encounter procedure Berna Prery K[facility] Work Phone: Department of Nutrition and Dietetics Comment on above: Bile duct obstructio n (Primary Dx) Start: 02-02-2025 ambulatory BERNA PERRY Facility :[facility] Start: 01-27-2025 End: 01-27-2025 Office outpatient new 60 minutes Baldomero Alejo MD Work Phone: Division of Surgical Oncology Comment on above: Bile duct obstructio n (Primary Dx); Malignant neoplasm of pancreas, unspecified location of malignancy Start: 01-27-2025 End: 01-27-2025 Clinical Support Encounter Baldomero Alejo MD Work Phone: [facility] 1 Comment on above: Bile duct obstructio n; Malignant neoplasm of pancreas, unspecified location of malignancy Start: 01-27-2025 ambulatory BELLE MONK Facility: [facility] Start: 01-20-[address] Jose Sawyer MD -[facility] Start: 01-20-2025 ambulatory Belle Monk Facility: [facility] Start: 01-20-2025 End: 01-20-[address] Petra Sawyer MD -[facility] Work Phone: Start: 01-20-2025 End: 01-20-[address] Belle Monk MD Work Phone: -[facility] Start: 01-14-2025 Non-patient / Non-visit Dr. Elin Moore DO -[facility] Work Phone: Start: 01-13-2025 Non-patient / Non-visit Dr. Elin Moore DO -[facility] Work Phone: Start: 01-13-2025 Non-patient / Non-visit Trevon Smart nd [facility] Start: 01-13-2025 End: 01-13-2025 ambulatory Ellen De La Garza Facility:[facility] Start: 01-13-2025 End: 01-13-2025 Non-patient / Non-visit Dr. Ellen De La Garza MD -[facility] Work Phone: Start: 01-12-2025 Non-patient / Non-visit Trevon Smrat nd [facility] Start: 01-12-2025 Non-patient / Non-visit Dr. Matilde ayers MD -[facility] Work Phone: Start: 01-12-2025 ambulatory Matilde Henry Facility:[facility] Start: 01-12-2025 End: 01-14-2025 Evaluation and management of inpatient Dr. Matilde Henry MD -[facility] Work Phone: Start: 01-12-2025 End: 01-12-[address] Freeman Stauffer MD -[facility] Work Phone: Start: 01-12-2025 End: 01-12-[address] Belle Monk MD Work Phone: [facility] Work Phone: Start: 01-05-2025 End: 01-05-[address] Belle Monk MD Work Phone: [facility] Work Phone: Start: 01-05-2025 End: 01-05-[address] Belle Monk MD -[facility] Work Phone: Start: 01-04-2025 End: 01-05-[address] Belle Monk MD Work Phone: [facility] Work Phone: Start: 01-04-2025 End: 01-04-[address] Belle Monk MD -[facility] Start: 01-04-2025 End: 01-04-[address] [facility] Start: 10-22-2024 End: 10-22-2024 ambulatory No Primary Care Physician [facility] Work Phone: Start: 10-22-2024 End: 10-22-[address] Belle Monk MD -Laboratory, [place] Work Phone: Start: 10-22-2024 End: 10-22-2024 ambulatory [facility] Facility:[facility] Start: 07-20-2024 End: 07-20-2024 Emergency department patient visit Dr. Gilbert Thompson MD -Emergency Department Work Phone: Procedures Date Procedure Procedure Detail Performing Clinician Start: 02-04-2025 ERCP Reji Berry [employer] Work Phone: Start: 02-04-2025 UPPER EUS Reji Berry [employer] Work Phone: Start: 02-04-2025 End: 02-04-2025 Glucose measurement, blood Baldomero Clemons MD Work Phone: Start: 01-27-2025 CBC AND ELECTRONIC DIFF Rejiwai Fosterric k [employer] Work Phone: Start: 01-27-2025 Complete blood count with white cell differential, automated Reji Berry [employer] Work Phone: Start: 01-27-2025 Comprehensive metabolic panel Reji malloy [employer] Work Phone: Start: 01-27-2025 Immunoassay tumor antigen quantitative ca 19-9 Reji Berry [employer] Work Phone: Start: 01-13-2025 End: 01-13-[address] Belle Monk MD Work Phone: Start: 01-13-[address] Belle Monk MD Work Phone: Start: 01-13-2025 Antibody to centromere measurement Dr. Belle Monk MD Work Phone: Comment on above: Note: Specimen is icteric.Previous repor justin result: TNP AIEdited by: INFCE on 01/14/25:1008 AMENDED REPORT 01/14/25 1008 ANTI-CENT B previously reported as: Test not performed Start: 01-13-2025 Antibody to extractable nuclear antigen measurement Dr. Belle Monk MD Work Phone: Comment on above: Note: Specimen is icteric.Previous repor justin result: TNP AIEdited by: INFCE on 01/14/25:1008 AMENDED REPORT 01/14/25 1008 KRISHNA Ab previously reported as: Test not performed Start: 01-13-2025 Antibody to ASYA-[address] Belle Monk MD Work Phone: Comment on above: Note: Specimen is icteric.Previous repor justin result: TNP AIEdited by: INFCE on 01/14/25:1008 AMENDED REPORT 01/14/25 1008 ANTI-ASYA previously reported as: Test not performed Start: 01-13-2025 Antibody to lupus La protein measurement Dr. Belle Monk MD Work Phone: Comment on above: Note: Specimen is icteric. Start: 01-13-2025 Antibody to SS-A measurement Dr. Belle Monk MD Work Phone: Comment on above: Note: Specimen is icteric. Start: 01-13-[address] Belle monge MD Work Phone: Comment on above: Note: Specimen is icteric.Previous repor justin result: TNP AIEdited by: INFCE on 01/14/25:1008 AMENDED REPORT 01/14/25 1008 ANTICHROMATIN previously reported as: Test not performed Start: 01-13-[address] Mayte Monk MD Work Phone: Start: 01-13-2025 AUTO CUSTOMIZE PAINTER antibody measurement Dr. Belle monge MD Work Phone: Comment on above: Note: Specimen is icteric.Previous repor justin result: TNP AIEdited by: SIMONA on 01/14/25:1008 AMENDED REPORT 01/14/25 1008 AUTO CUSTOMIZE PAINTER Ab previously reported as: Test not performed Start: 01-12-2025 Einbr-2-Savucfryeru measurement Dr. Linda Monk MD Work Phone: Comment on above: VisualOn Electrochemiluminescen ce Immunoassay(ECLIA)Values obtained with different assay methods or kits cannotbe used interchangeably. Results cannot be interpreted asabsolute evidence of the presence or absence of malignantdisease.This test is not interpretable in females. Start: 01-12-[address] Belle Monk MD Work Phone: Comment on above: Note: Specimen is icteric.The atypical p ANCA pattern has been observed in asignificant percentage of patients with ulcerative colitis,primary sclerosing cholangitis and autoimmune hepatitis. Start: 01-12-2025 Maricruz-Trinh virus capsid IgG measurement Dr. Belle Monk MD Work Phone: Comment on above: Negative <18.0 Equivocal 18.0 - 21.9 Pos itive >21.9 Start: 01-12-2025 Maricruz-Trinh virus serologic test Dr. Johnny Monk MD Work Phone: Comment on above: EBV Interpretation ChartKey: Antibody Pr esent + Antibody Absent -Interpretation VCA-IgM VCA-IgG EBNA-IgGNo previous infection/ - - -SusceptiblePrimary infection (new + + -or recent)Past Infection +or- + +See comment below* + - -*Results indicate infection with EBV at some time however cannot predict the timing of the infection since antibodies to EBNA usually develop after primary infection or, alternatively, approximately 5-10% of patients with EBV never develop antibodies to EBNA. Start: 01-12-2025 Hepatitis A virus antibody, IgM type Dr. Belle Monk MD Work Phone: Comment on above: A negative anti-HAV IgM result suggests no recent orcurrent HAV infection. Start: 01-12-2025 Hepatitis B core antibody measurement, IgM type Dr. Belle Monk MD Work Phone: Start: 01-12-2025 Hepatitis C antibody measurement Dr. Jordon Monk MD Work Phone: Start: 01-12-2025 Immunoglobulin G subclass, G4 measurement Dr. Belle Monk MD Work Phone: Start: 01-12-[address] Belle Monk MD Work Phone: Start: 01-12-[address] Belle Monk MD Work Phone: Start: 01-12-2025 Computed tomography of abdomen and pelvis with intravenous contrast Dr. Belle Monk MD Work Phone: Start: 01-12-2025 Urnls dip stick/tablet reagent auto microscopy Dr. Belle Monk MD Work Phone: Start: 01-12-[address] Mayte Monk MD Work Phone: Start: 01-05-[address] Belle castellanos MD Work Phone: Plan of Treatment Date Care Activity Detail Author Start: 2030 RSV VACCINE (1 - 1-d ose 75+ series) RSV VACCINE (1 - 1-dose 75+ series) [facility] Start: 04-21-2025 End: 04-21-2025 Patient encounter procedure Department of Radiology Start: 03-21-2025 Influenza vaccination INFLUENZA VACC INE (#1) [facility] Start: 02-21-2025 Cancer Ag 19-9 [Units/volume] in Serum or Plasma [facility] Start: 02-21-2025 CBC W Auto Different ial panel - Blood [facility] Start: 02-21-2025 Comprehensive metabo lic 2000 panel - Serum or Plasma [facility] Start: 02-21-2025 Magnesium measurement [facility] Start: 02-21-2025 Serum inorganic phos phate measurement [facility] Start: 02-21-2025 [facility] Start: 02-10-2025 End: 02-10-2026 CA 19-9 CA 19-9 Lab Routine Malignant neoplasm of pancreas, unspecified location of malignancy Expected: 02/10/2025, Expires: 02/10/2026 [facility] Comment on above: Expected: 02/10/2025 , Expires: 02/10/2026 Start: 02-10-2025 End: 02-10-2026 Complete blood count with white cell differential, automated CBC, EDIF, PLATELET Lab Routine Malignant neoplasm of pancreas, unspecified location of malignancy Expected: 02/10/2025, Expires: 02/10/2026 [facility] Comment on above: Expected: 02/10/2025 , Expires: 02/10/2026 Start: 02-10-2025 End: 02-10-2026 Comprehensive metabolic 2000 panel - Serum or Plasma COMPREHENSIVE METABOLIC PANEL Lab Routine Malignant neoplasm of pancreas, unspecified location of malignancy Expected: 02/10/2025, Expires: 02/10/2026 [facility] Comment on above: Expected: 02/10/2025 , Expires: 02/10/2026 Start: 02-10-2025 End: 02-10-2026 CT Abdomen and Pelvis W contrast IV CT ABDOMEN/PELVIS WITH CONTRAST Imaging Routine Malignant neoplasm of pancreas, unspecified location of malignancy Expected: 02/10/2025, Expires: 02/10/2026 [facility] Comment on above: Expected: 02/10/2025 , Expires: 02/10/2026 Start: 02-10-2025 End: 02-10-2026 CT Chest W contrast IV CT CHEST WITH CONTRAST Imaging Routine Malignant neoplasm of pancreas, unspecified location of malignancy Expected: 02/10/2025, Expires: 02/10/2026 [facility] Comment on above: Expected: 02/10/2025 , Expires: 02/10/2026 Start: 02-10-2025 End: 02-10-2026 Hemoglobin A1c/Hemoglobin.total in Blood HEMOGLOBIN A1C Lab Routine Malignant neoplasm of pancreas, unspecified location of malignancy Encounter for screening for diabetes mellitus Expected: 02/10/2025, Expires: 02/10/2026 [facility] Comment on above: Expected: 02/10/2025 , Expires: 02/10/2026 Start: 02-10-2025 End: 02-10-2026 Prealbumin [Mass/volume] in Serum or Plasma PREALBUMIN Lab Routine Malignant neoplasm of pancreas, unspecified location of malignancy Expected: 02/10/2025, Expires: 02/10/2026 [facility] Comment on above: Expected: 02/10/2025 , Expires: 02/10/2026 Start: 02-10-2025 End: 02-10-2026 PT,INR,PTT PT,INR,PTT Lab Routine Malignant neoplasm of pancreas, unspecified location of malignancy Neoplasm of unspecified behavior of unspecified site Expected: 02/10/2025, Expires: 02/10/2026 [facility] Comment on above: Expected: 02/10/2025 , Expires: 02/10/2026 Start: 02-02-2025 End: 02-02-2025 Patient encounter procedure 02/02/2025 1:00 PM EDT Office Visit Department of Nutrition and Dietetics [address] [place] [address] [place] [address] Department of Nutrition and Dietetics Start: 01-27-2025 End: 01-27-2026 ERCP ERCP GI/Bronch STAT Bile duct obstruction Expected: 01/27/2025, Expires: 01/27/2026 [facility] Comment on above: Expected: 01/27/2025 , Expires: 01/27/2026 Start: 01-27-2025 End: 01-27-2026 UPPER EUS UPPER EUS GI/Bronch STAT Bile duct obstruction Expected: 01/27/2025, Expires: 01/27/2026 [facility] Comment on above: Expected: 01/27/2025 , Expires: 01/27/2026 Start: 01-20-2025 Bilirubin.direct [Mass/volume] in Serum or Plasma [facility] Start: 01-20-2025 CBC W Auto Different ial panel - Blood [facility] Start: 01-20-2025 Comprehensive metabo lic 2000 panel - Serum or Plasma [facility] Start: 01-20-2025 [facility] Start: 01-14-2025 Patient discharge [facility] Start: 01-13-2025 [facility] Start: 01-12-2025 Cytomegalovirus IgM antibody assay [facility] Start: 01-12-2025 Immunoglobulin measurement [facility] Start: 01-12-2025 [facility] Start: 01-12-2025 Following clinical p athway protocol [facility] Start: 01-12-2025 Assessment of risk o f venous thromboembolism [facility] Start: 01-12-2025 Care regimes management [facility] Start: 01-12-2025 Inhalation therapy procedure [facility] Start: 01-12-2025 Insertion of cathete r into peripheral vein [facility] Start: 01-12-2025 Notification of physician [facility] Start: 01-12-2025 Providing care accor ding to standard [facility] Start: 01-12-2025 Provision of activit y privileges [facility] Start: 01-12-2025 Referral to gastroenterology service [facility] Start: 01-12-2025 End: 01-12-2025 [facility] Start: 01-12-2025 Admission procedure [facility] Start: 01-12-2025 Verification routine [facility] Start: 01-12-2025 Hospital admission, emergency, from emergency room, medical nature [facility] Start: 01-12-2025 [facility] Start: 07-20-2024 [facility] Start: 03-21-2024 COVID-19 VACCINE ( season) COVID-19 VACCINE ( season) [facility] Start: 2010 Prostate specific an tigen measurement PROSTATE CANCER SCREENING DISCUSSION [facility] Start: 2005 Pneumococcal vaccination PNEUM OCOCCAL VACCINE SERIES (1 of - PCV) [facility] Start: 2005 Zoster vaccine hzv l kendall for subcutaneous use ZOSTER (SHINGLES) VACCINE (1 of 2) [facility] Start: 2000 Screening for malign ant neoplasm of colon COLORECTAL CANCER SCREENING DISCUSSION [facility] Start: 1995 Lipid panel LIPID SCREENING [facility] Start: 1974 Third diphtheria, te tanus and acellular pertussis (DTaP) vaccination TDAP (ADULT) [facility] Start: 1955 Hepatitis C screening HEPATITI S C VIRUS SCREENING [facility] Start: 1955 Tetanus vaccination TETANUS [facility] Alanine aminotransfe rase [Enzymatic activity/volume] in Serum or Plasma [facility] Alanine aminotransfe rase [Enzymatic activity/volume] in Serum or Plasma [facility] Albumin [Mass/volume ] in Serum or Plasma [facility] Albumin [Mass/volume ] in Serum or Plasma [facility] Alkaline phosphatase [Enzymatic activity/volume] in Serum or Plasma [facility] Alkaline phosphatase [Enzymatic activity/volume] in Serum or Plasma [facility] [id number]. tumor marker [Units/volume] in Serum or Plasma [facility] Anion gap in Serum o r Plasma [facility] Anion gap in Serum o r Plasma [facility] Bilirubin, total measurement [facility] Bilirubin, total measurement [facility] BUN/Creatinine ratio [facility] BUN/Creatinine ratio [facility] Calcium [Mass/volume ] in Serum or Plasma [facility] Calcium [Mass/volume ] in Serum or Plasma [facility] Cancer Ag 19-9 [Units/volume] in Serum or Plasma [facility] Carbon dioxide, tota l [Moles/volume] in Central venous blood [facility] Carbon dioxide, tota l [Moles/volume] in Central venous blood [facility] Creatinine [Mass/vol ume] in Serum or Plasma [facility] Creatinine [Mass/vol ume] in Serum or Plasma [facility] CT Abdomen and Pelvi s W contrast IV [facility] CT Chest W contrast IV [facility] [place] virus c apsid IgG Ab [Units/volume] in Serum [facility] [place] virus c apsid IgM Ab [Units/volume] in Serum [facility] [place] virus n uclear IgG Ab [Units/volume] in Cerebral spinal fluid [facility] Maricruz-Trinh virus serologic test [facility] Erythrocyte mean corpuscular volume determination [facility] Erythrocyte mean corpuscular volume determination [facility] Glucose [Mass/volume ] in Serum or Plasma [facility] Glucose [Mass/volume ] in Serum or Plasma [facility] Hematocrit [Volume Fraction] of Blood [facility] Hematocrit [Volume Fraction] of Blood [facility] Hemoglobin [Mass/vol ume] in Blood [facility] Hemoglobin [Mass/vol ume] in Blood [facility] Hepatic function panel [facility] IgA [Mass/volume] in Serum or Plasma [facility] IgE [Units/volume] i n Serum or Plasma [facility] IgG [Mass/volume] in Serum or Plasma [facility] IgG subclass 1 [Mass/volume] in Serum [facility] IgG subclass 2 [Mass/volume] in Serum [facility] IgG subclass 3 [Mass/volume] in Serum [facility] IgG subclass 4 [Mass/volume] in Serum [facility] IgM [Mass/volume] in Serum or Plasma [facility] Leukocytes [#/volume ] in Blood [facility] Leukocytes [#/volume ] in Blood [facility] Mean corpuscular hemoglobin concentration determination [facility] Mean corpuscular hemoglobin concentration determination [facility] Mean corpuscular hemoglobin determination [facility] Mean corpuscular hemoglobin determination [facility] Measurement of renal function [facility] Measurement of renal function [facility] Neutrophil count [facility] Neutrophil count [facility] Neutrophil cytoplasm ic Ab.classic [Units/volume] in Serum [facility] Neutrophil percent differential count [facility] Neutrophil percent differential count [facility] NM Whole body Bone Views [facility] P-ANCA measurement [facility] Patient Education ED Diabetes- O [facility] ED Hypertension, To Be Confirmed ED Hyperglycemia New Poss Diabetes [facility] Work Phone: Patient referral [facility] Work Phone: Platelets [#/volume] in Blood [facility] Platelets [#/volume] in Blood [facility] Potassium measurement [facility] Potassium measurement [facility] Red blood cell count [facility] Red blood cell count [facility] Red cell distributio n width determination [facility] Red cell distributio n width determination [facility] End: 02-04-2025 RF Guidance for endoscopy of Biliary ducts and Pancreatic duct-- W contrast retrograde [facility] Work Phone: Comment on above: One Time for 1 Occur rences starting 02/04/2025 until 02/04/2025 Serum chloride measurement [facility] Serum chloride measurement [facility] Sodium measurement [facility] Sodium measurement [facility] SURG PATH REQUEST [facility] Comment on above: Release Upon Orderin g for 1 Occurrences starting 02/04/2025, 1 completed Total protein measurement [facility] Total protein measurement [facility] Urea nitrogen [Mass/volume] in Serum or Plasma [facility] Urea nitrogen [Mass/volume] in Serum or Plasma [facility] Payers Date Payer Category Payer Managed Care (unspecified) MEDICARE SUPPLEMENT [id number] 2024 Medicare MEDICARE A AND B [id number] 2024 Medicare [id number] 2024 Medicare [id number] 2024 Self-pay 1955 Unknown [id number] .594 1955 Unknown [id number] .594 1955 Unknown [id number] 2.840.1.477192.3.579.2 .594 1955 Unknown [id number] 2.840.1.414704.3.579.2 .594 1955 Unknown [id number] 2.840.1.050001.3.579.2 .594 Unknown [id number] 2.840.1.307512.3.579.2 .462 Unknown [id number] 2.16840.1.322951.3.579.2 .462 Unknown [id number] 2.16840.1.904452.3.579.2 .462 Unknown [id number] 2.16840.1.398064.3.579.2 .462 Unknown [id number] 2.16840.1.132317.3.579.2 .462 Unknown [id number] 2.16840.1.636083.3.579.2 .462 Unknown [id number] 2.16.840.1.946686.3.579.2 .462 Unknown [id number] 2.16.840.1.026358.3.579.2 .462 Unknown [id number] 2.16.840.1.828980.3.579.2 .462 Unknown [id number] 2.16.840.1.648647.3.579.2 .462 Unknown [id number] 2.16.840.1.566895.3.579.2 .462 Unknown [id number] 2.16.840.1.562841.3.579.2 .462 Unknown [id number] 2.16.840.1.362561.3.579.2 .462 Unknown [id number] [id number] .462 Social History Date Type Detail Facility Start: 07-20-2024 End: 01-20-2025 Tobacco smoking status NHIS Never smoked tobacco (finding) [facility] Start: 10-25-2024 End: 01-24-2025 Sex Male (finding) [facility] Start: 1955 Sex Assigned At Male [facility] Start: 01-27-2025 End: 02-04-2025 Alcoholic beverage intake Lifetime non-drinker (finding) [facility] Start: 01-27-2025 End: 02-04-2025 History of Social function [facility] Start: 01-27-2025 End: 02-04-2025 Tobacco use panel [facility] Adolescent depressio n screening assessment 0 [facility] Start: 1955 Sex assigned at Not on file [facility] Start: 01-27-2025 Gender identity Identifies as male gender (finding) [facility] Start: 01-27-2025 Sexual orientation Choose not to dis close [facility] Start: 02-04-2025 Tobacco use and exposure Smoke less tobacco non-user [facility] Medical Equipment Procedure Code Equipment Code Equipment Original Text Equipment Identifier Dates ERCP (endoscopic retrograde cholangiopancreatog vicente) ([id number]) Polymeric biliary stent, non-bioabsorbable ()[id number] FDA Start: 01-13-2025 Wallflex Biliary Plus Rx Fully Covered Stent System 10mm X 40mm ()[id number] FDA Start: 02-04-2025 Comment on above: Description: Verball y and visually checked with Dr Clemons Goals Date Patient Goal Desired Activity /State Personal health goal Functional Status Date Assessment Result Facility 01-14-2025 Functional status Ambulates;Up ad luis angel [facility] Work Phone: Mental Status Date Assessment Result Facility 01-14-2025 Cognitive function Level Of Cons ciousness Alert;Appropriate;Follows Commands [facility] Work Phone: 01-13-2025 Cognitive function Voice/Name [facility] Work Phone: 07-20-2024 Cognitive function Level Of Cons ciousness Awake;Alert;Appropriate;Follow s Commands [facility] Work Phone: Clinical Notes 01-05-2025 to 02-10-2025 Telephone Encounter - CADENCE Gardner - 02/10/2025 10:12 AM EDTTelephone Encounter - CADENCE Gardner - 02/10/2025 10:12 AM Calvin Banerjee RN - 02/04/2025 3:04 PM EDT Note Date & Type Note Facility 02-10-2025 Telephone encounter Note I have ordered CT and labs. Will need to arrange an appt in 10 weeks and a return with Dr. Alejo. Orders Placed This Encounter CT ABDOMEN/PELVIS WITH CONTRAST CT CHEST WITH CONTRAST CA 19-9 CBC, EDIF, PLATELET COMPREHENSIVE METABOLIC PANEL HEMOGLOBIN A1C PREALBUMIN PT,INR,PTT [facility] 02-10-2025 Miscellaneous Notes I have ordered CT and labs. Will need to arrange an appt in 10 weeks and a return with Dr. Alejo. Orders Placed This Encounter CT ABDOMEN/PELVIS WITH CONTRAST CT CHEST WITH CONTRAST CA 19-9 CBC, EDIF, PLATELET COMPREHENSIVE METABOLIC PANEL HEMOGLOBIN A1C PREALBUMIN PT,INR,PTT documented in this encounter [facility] 02-04-2025 Nurse Surgical operation note Patient with blood sugar 229. Previously blood sugar was 273 and [address] Zelaya notified and no orders given to treat blood sugar. [facility] 02-04-2025 Nurse Note Patient with blood sugar 229. Previously blood sugar was 273 and [address] Zelaya notified and no orders given to treat blood sugar. Patient to PACU Plus per homer and report given to Cale Banerjee RN. Report given to RN. Patient going to room K 226 per homer documented in this encounter [facility] 02-04-2025 Nurse Surgical operation note Patient to PACU Plus per homer and report given to Cale Banerjee RN. [facility] 02-04-2025 Nurse Note Report called to PACU PLUS stent card to chart [facility] 02-04-2025 Miscellaneous Notes Report called to PACU PLUS stent card to chart Plastic stent removed and intact EUs complete ercp begun Stent removed and intact documented in this encounter [facility] 02-04-2025 Nurse Note Plastic stent removed and intact [facility] 02-04-2025 Nurse Note EUs complete ercp begun [facility] 02-04-2025 Nurse Note Stent removed and intact [facility] 02-04-2025 History and physical note ENDOSCOPIC PREPROCEDURE HISTORY AND PHYSICAL HISTORY OF PRESENT ILLNESS: Erick Gautam is a 69 y.o. male seen in the preoprocedure area at [facility]. The indication for endoscopic evaluation includes: Bile duct obstruction Bile duct obstruction. PAST MEDICAL HISTORY: Past Medical History: Diagnosis Date Bile duct obstruction 01/27/2025 Cataracts, bilateral Type 2 diabetes mellitus 01/27/2025 SURGICAL HISTORY: Past Surgical History: Procedure Laterality Date ERCP W/ PLACEMENT STENT BILIARY/PANCREATIC DUCT 01/13/2025 APPENDECTOMY HERNIA REPAIR Right MEDICATIONS: Current Outpatient Medications Medication Instructions Januvia 25 mg, DAILY metFORMIN (GLUCOPHAGE) 500 mg, 2 TIMES DAILY WITH MEALS Pancreatic enzymes (Creon) [id number] units [address] Particles Take two by mouth with meals and one with snacks daily. Current Outpatient Medications: Januvia 25 MG tablet, Take 1 tablet by mouth daily., Disp: , Rfl: metFORMIN 500 MG tablet, Take 1 tablet by mouth 2 times daily with meals., Disp: , Rfl: Pancreatic enzymes (Creon) [id number] units [address] Particles, Take two by mouth with meals and one with snacks daily., Disp: 240 capsule, Rfl: 3 ALLERGIES: No Known Allergies FOCUSED REVIEW OF SYSTEMS: Patient denies melena, hematochezia or hematemesis (unless as detailed in HPI.) Patient denies intractable vomiting, yellowing of eyes or skin, odynophagia, excessive belching, significant fecal incontinence. VITAL SIGNS: Vitals: 02/04/25 1216 BP: 147/81 Pulse: 68 Resp: 14 Temp: 98 degrees F (36.7 degrees C) TempSrc: Infrared SpO2: 99% Height: 1.778 m (5' 10) PREPROCEDURE PHYSICAL EXAM: AIRWAY: Mallampati: Class II (complete visualization of the uvula) HEART: RRR PULMONARY: Normal respiratory effort and rate, no respiratory distress, no wheezes, no accessory muscle use, or nasal flaring, ABDOMEN: Soft, nontender, nondistended ASSESSMENT: Erick Gautam is a 69 y.o. male is ready for the planned procedure. ASA Class: ASA 3 - Patient with moderate systemic disease with functional limitations PLAN: Will plan to proceed with EUS/ERCP using General Anesthesia. Baldomero Clemons MD [facility] Work Phone: 02-04-2025 History and physical note ENDOSCOPIC PREPROCEDURE HISTORY AND PHYSICAL HISTORY OF PRESENT ILLNESS: Erick Gautam is a 69 y.o. male seen in the preoprocedure area at [facility]. The indication for endoscopic evaluation includes: Bile duct obstruction Bile duct obstruction. PAST MEDICAL HISTORY: Past Medical History: Diagnosis Date Bile duct obstruction 01/27/2025 Cataracts, bilateral Type 2 diabetes mellitus 01/27/2025 SURGICAL HISTORY: Past Surgical History: Procedure Laterality Date ERCP W/ PLACEMENT STENT BILIARY/PANCREATIC DUCT 01/13/2025 APPENDECTOMY HERNIA REPAIR Right MEDICATIONS: Current Outpatient Medications Medication Instructions Januvia 25 mg, DAILY metFORMIN (GLUCOPHAGE) 500 mg, 2 TIMES DAILY WITH MEALS Pancreatic enzymes (Creon) [id number] units [address] Particles Take two by mouth with meals and one with snacks daily. Current Outpatient Medications: Januvia 25 MG tablet, Take 1 tablet by mouth daily., Disp: , Rfl: metFORMIN 500 MG tablet, Take 1 tablet by mouth 2 times daily with meals., Disp: , Rfl: Pancreatic enzymes (Creon) [id number] Particles, Take two by mouth with meals and one with snacks daily., Disp: 240 capsule, Rfl: 3 ALLERGIES: No Known Allergies FOCUSED REVIEW OF SYSTEMS: Patient denies melena, hematochezia or hematemesis (unless as detailed in HPI.) Patient denies intractable vomiting, yellowing of eyes or skin, odynophagia, excessive belching, significant fecal incontinence. VITAL SIGNS: Vitals: 02/04/25 1216 BP: 147/81 Pulse: 68 Resp: 14 Temp: 98 degrees F (36.7 degrees C) TempSrc: Infrared SpO2: 99% Height: 1.778 m (5' 10) PREPROCEDURE PHYSICAL EXAM: AIRWAY: Mallampati: Class II (complete visualization of the uvula) HEART: RRR PULMONARY: Normal respiratory effort and rate, no respiratory distress, no wheezes, no accessory muscle use, or nasal flaring, ABDOMEN: Soft, nontender, nondistended ASSESSMENT: Erick Gautam is a 69 y.o. male is ready for the planned procedure. ASA Class: ASA 3 - Patient with moderate systemic disease with functional limitations PLAN: Will plan to proceed with EUS/ERCP using General Anesthesia. Baldomero Clemons MD documented in this encounter [facility] 02-04-2025 Nurse Surgical operation note Report given to RN. Patient going to room K 226 per homer [facility] 02-02-2025 History of Presen t illness Narrative OUTPATIENT NUTRITION ASSESSMENT Pt is present in the State of [place]: [x] Yes [] No; Pt currently not in the [facility] during time of call. Discussed creative services writer is unable to provide MNT to pt d/t dietetics state licensure laws R/T [id number] telehealth. This visit is being conducted by real time phone, including > 10 minutes of medical discussion. . During the scheduling process, this patient has verbally consented to the submission of Telehealth visits and the patient is aware of the risks, benefits, and possible coinsurance/copay costs. Dairy Technician resource utilized: N/A Referring Provider: Baldomero Alejo MD Referral/Reason for Visit: Creon titration Nutrition Assessment: Mr. Erick Gautam is a 69 y.o. male undergoing work up for potential pancreatic cancer vs cholangiocarcinoma dx. DM2 dx in July 2024. Diabetes is increasingly difficult to manage and has developed belching/cramps/bloating and unintentional weight loss. Creon was prescribed. Treatment/Treatment History: impending dx and plan PMH: Past Medical History: Diagnosis Date Bile duct obstruction 01/27/2025 Cataracts, bilateral Type 2 diabetes mellitus 01/27/2025 PSH: Past Surgical History: Procedure Laterality Date ERCP W/ PLACEMENT STENT BILIARY/PANCREATIC DUCT 01/13/2025 APPENDECTOMY HERNIA REPAIR Right Medications: Current Outpatient Medications Medication Sig Januvia 25 MG tablet Take 1 tablet by mouth daily. metFORMIN 500 MG tablet Take 1 tablet by mouth 2 times daily with meals. Pancreatic enzymes (Creon) [id number] units Cap [address] Particles Take two by mouth with meals and one with snacks daily. Vitamin/Mineral Supplements: above Pertinent Nutrition-Related Labs: Sodium: Lab Results Component Value Date SODIUM 134 (L) 01/27/2025 Potassium: Lab Results Component Value Date POTASSIUM 3.9 01/27/2025 Creatinine: No components found for: CREATININE SERUM Glucose: Lab Results Component Value Date GLUCOSE 320 (H) 01/27/2025 Vitamin D: No components found for: VITAMIN D 25 HYDROXY HGA1c: No results found for: HGBA1C Lipids: No results found for: CHOLESTEROL, TRIG, HDL, LDLCALC, LDLDIRECT Anthropometrics: Height: Ht Readings from Last 1 Encounters: 01/27/25 1.778 m (5' 10) Weight: Wt Readings from Last 1 Encounters: 01/27/25 80.4 kg (177 lb 3.2 oz) lbs. BMI: Estimated body mass index is 25.43 kg/m as calculated from the following: Height as of 01/27/25: 1.778 m (5' 10). Weight as of 01/27/25: 80.4 kg (177 lb 3.2 oz). IBW Range: 166 lbs. +/- 10% Wt hx: Wt Readings from Last 8 Encounters: 01/27/25 80.4 kg (177 lb 3.2 oz) UBW: 215-220 lbs 7-8 months ago Weight History: Pt with 41 lb weight loss (18.8% body weight) over 7-8 months. Estimated Needs Based on: 75.5 kg (IBW) Energy: 2265 kcals/day (30 kcal/kg) Pro Needs: 91-113 grams/day(1.2-1.5 g/kg) Nutrition-Focused Physical Exam Unable via telephone Nutrition-Related Hx: Current Diet: regular, but cut out sugary drinks Appetite: good Allergies/Intolerances: nkfa None per patient Abdominal discomfort; Signs and symptoms of pancreatic insufficiency; Oral Supplements: none reported Food Intake History: Time Food/Quantity Breakfast Egg and pc of bread with butter and jelly Snack Lunch Largo sandwich with cheese and tomato, apple slices, fadi cookie and some doritos Snack Ritz crackers with PB sandwiched between Dinner Pork ribs, mac and cheese and corn on the cob Snack Beverages: water Subjective Notes: Pt states: Fasting blood sugars have been running over 300 and was randomly over 400 yesterday morning Picked up creon, but has not started using yet. Reports was waiting to speak with me. Nutrition Diagnosis: Nutrition Diagnosis Statement: NC-1.4 Altered GI Function related to Compromised exocrine function of related GI organs, e.g. pancreas, liver As evidenced by s/sx EPI and creon rx. NC-2.2 Altered Nutrition-Related Laboratory Values (specify) related to Other organ dysfunction that leads to biochemical changes (specify) As evidenced by disease in pancreas causing exocrine and endocrine dysfunction. EPI and hyperglycemia both needing to be addressed. Malnutrition Statement: Pt does not meet malnutrition criteria for diagnosis at this time. Not enough information to fully assess. However, at risk 2/2 unintentional wt loss and diagnosis. Nutrition Intervention: Nutrition Prescription: Education: Reviewed function of pancreas with endocrine and exocrine function. Discussed how we would like to see fasting glucose numbers below 200. Educated that he needs to reach out to PCP that is managing blood sugars today to let them know his blood sugars are running high as they may start him on insulin. Encouraged to continue to not have sugary drinks. Opt for consistent carb intake. Choose complex carbs vs simple more often and pair with protein and fat and meals/snacks. Reviewed EPI as well as why and how to take pancreatic enzymes. Patient Goals: Call PCP immediately for better blood sugar management plan Begin pancreatic enzymes today at next meal. Creon 12,000 lipase unit caps 2 with meals and 1 with snacks. Take with first bite or sip of all meal/snacks that contain fat. Continue to avoid sugary drinks. Handouts Provided: Pancreatic enzymes (ON DPG) Learning Needs Identified: can read and write adequately Barriers to Education: none Understanding Demonstrated: Mostly understand Expected Compliance: good Monitoring and Evaluation: 1. RD name and contact information provided; encouraged pt to contact RD with any questions or concerns. 2. Follow up: encouraged pt to reach out Berna Perry RD, [employer] Registered Dietitian Inspector Fibrous Wallboard documented in this encounter [facility] 01-27-2025 History of Presen t illness Narrative Images from the original note were not included. Chief Complaint: Chief Complaint Patient presents with Follow-up Clinical Care Team: Referring Provider: Petra Sawyer MB* Primary Care Provider: Belle Monk History of Present Illness: Mr. Gautam is a 69 y.o. male with a past medical history significant for DM2. He presents to [facility] Surgical Oncology clinic for surgical evaluation of biliary obstruction. Oncologic History: Erick Gautam initially presented about 6 weeks ago with right upper quadrant pain. Ultrasound was obtained and concerning for choledocholithiasis. He was seen by a general surgeon who was concerned for cancer. He was admitted with obstructive jaundice and underwent ERCP with temporary stent placement. A biopsy and brushings were negative. Previous abdominal surgeries: appendectomy Blood thinners: none Colonoscopy: never Our team has reviewed all outside records available prior to patient visit. Mr. Gautam is here today with his for his appointment. He complains of aching pain in the right upper quadrant and belching. He has lost 41 lbs since the first of the year. He had new onset diabetes in July of this year. This is now better controlled. He has had one episode of emesis. The pain waxes and wanes. His jaundice and itching are improved. T bili was 12.5 prior to stent placement. It is now 2.8. Ca 19-9 was 328 three days after stent placement Past Medical History: Diagnosis Date Bile duct obstruction 01/27/2025 Cataracts, bilateral Type 2 diabetes mellitus 01/27/2025 Past Surgical History: Procedure Laterality Date ERCP W/ PLACEMENT STENT BILIARY/PANCREATIC DUCT 01/13/2025 APPENDECTOMY HERNIA REPAIR Right No Known Allergies Current Outpatient Medications Medication Sig Dispense Refill Januvia 25 MG tablet Take 1 tablet by mouth daily. metFORMIN 500 MG tablet Take 1 tablet by mouth 2 times daily with meals. No current facility-administered medications for this visit. Social History Socioeconomic History Marital status: Spouse name: Not on file Number of children: Not on file Years of education: Not on file Highest education level: Not on file Occupational History Not on file Tobacco Use Smoking status: Never Smokeless tobacco: Not on file Substance and Sexual Activity Alcohol use: Never Drug use: Never Sexual activity: Not Currently Partners: Female Other Topics Concern Occupational Exposure No Hobby Hazards No Social History Narrative Not on file Social Drivers of Health Financial Resource Strain: Not on file Food Insecurity: Not on file Transportation Needs: Not on file Physical Activity: Not on file Stress: Not on file Social Connections: Not on file Personal Safety: Not on file Housing Stability: Not on file Family History Problem Relation Age of Onset Cancer- Other Father Breast Cancer Sister Diabetes Sister Review of Systems: Negative for additional constitutional, HEENT, cardiovascular, respiratory, gastrointestinal, genitourinary, musculoskeletal, integumentary, neurological, psychiatric, endocrine, or hematologic/lymphatic complaints aside from what is noted in the history of present illness above. Physical Exam: Vitals: BP 136/70 Pulse 79 Temp 98.5 F (36.9 C) (Infrared) Resp 14 Ht 1.778 m (5' 10) Wt 80.4 kg (177 lb 3.2 oz) Comment: shoes off SpO2 99% BMI 25.43 kg/m Smoking Status Never Physical Exam Constitutional: Appearance: Normal appearance. HENT: Head: Normocephalic and atraumatic. Nose: Nose normal. No congestion. Eyes: General: No scleral icterus. Pupils: Pupils are equal, round, and reactive to light. Pulmonary: Effort: Pulmonary effort is normal. No respiratory distress. Abdominal: General: There is no distension. Palpations: Abdomen is soft. Musculoskeletal: General: No swelling. Normal range of motion. Skin: General: Skin is warm and dry. Neurological: General: No focal deficit present. Mental Status: He is alert and oriented to person, place, and time. Psychiatric: Mood and Affect: Mood normal. Behavior: Behavior normal. ECOG Performance Status: 1 0 - Asymptomatic (Fully active, able to carry on all predisease activities without restriction) 1 - Symptomatic but completely ambulatory (Restricted in physically strenuous activity but ambulatory and able to carry out work of a light or sedentary nature. For example, light housework, office work) 2 - Symptomatic, <50% in bed during the day (Ambulatory and capable of all self care but unable to carry out any work activities. Up and about more than 50% of waking hours) 3 - Symptomatic, >50% in bed, but not bedbound (Capable of only limited self-care, confined to bed or chair 50% or more of waking hours) 4 - Bedbound (Completely disabled. Cannot carry on any self-care. Totally confined to bed or chair) Laboratory evaluation: Lab Results Component Value Date SODIUM 134 (L) 01/27/2025 POTASSIUM 3.9 01/27/2025 CHLORIDE 98 01/27/2025 CO2 28 01/27/2025 BUN 23 01/27/2025 CREATSERUM 0.66 (L) 01/27/2025 GLUCOSE 320 (H) 01/27/2025 Lab Results Component Value Date WBC 3.78 01/27/2025 HGB 13.1 (L) 01/27/2025 HCT 38.1 (L) 01/27/2025 PLATELET 233 01/27/2025 MCV 85.8 01/27/2025 No results found for: HGBA1C Lab Results Component Value Date ALT 106 (H) 01/27/2025 AST 56 (H) 01/27/2025 ALKPHOS 163 (H) 01/27/2025 BILITOTAL 2.8 (H) 01/27/2025 Tumor Markers: No results found for: CEA, CA199, AFPTMRMKR, CHROMOGRANA, CA125 Radiographic/ Diagnostic evaluation: Pathology: Brushings and biopsy reportedly negative for malignancy Assessment Mr. Gautam is a 69 y.o. male with biliary and pancreatic duct obstruction. We discussed our concern for underlying malignancy although no tissue diagnosis has been made at this time. 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 We discussed management options including further work-up with EUS/biopsy and ERCP with metal stent placement versus upfront surgery. We elected to proceed with EUS and ERCP. If this is pancreatic cancer, we would plan for neoadjuvant chemotherapy. He will need staging of his chest if cancer is confirmed. Plan Patient seen and evaluated by myself and Dr. Alejo, all available relevant imaging and labs reviewed, and the plan was developed collaboratively. Referral to GI for EUS/biopsy and ERCP with metal stent placement Remainder of plans pending this work-up Start creon Orders Placed This Encounter CBC, EDIF, PLATELET COMPREHENSIVE METABOLIC PANEL PT,INR,PTT CA 19-9 Adán Daniel MD Surgical Oncology Fellow Department of Surgery Surgical Oncology Attending Mr Gautam is a 69yo otherwise healthy man who presented with abdominal pain and then jaundice. 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 A plastic stent was placed. CT A/P and MRI show biliary and pancreatic dilatation terminating in the anterior head of the pancreas with a subtle mass on my review with possible portal vein abutment. Labs today show bilirubin 2.8 (peak 12) and CA 199 255. The remainder of the history and physical are available in the note by Dr Adán Daniel which I have reviewed and agree with. 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 I recommend urgent EUS with FNA and ERCP at same time to exchange biliary stent. If malignancy confirmed (and PDAC) suspected, would recommend neoadjuvant chemotherapy followed by surgical resection. If repeat biopsies remain inconclusive, would have to consider surgery given the elevated concern for malignancy. Given some signs of exocrine insufficiency, will start creon and refer to RD. I had a long conversation with and Mrs Gautam about the natural history, prognosis, and management of periampullary cancer. They asked several insightful questions which I worked hard to answer to their satisfaction. I will be in touch after his EUS biopsy results. They are encouraged to contact me if additional questions or concerns arise in the meantime. documented in this encounter [facility] 01-27-2025 Instructions Morena Centeno RN - 01/27/2025 2:00 PM EDT We have sent a prescription for pancreatic enzymes to your pharmacy. If you have any issues with getting this filled, then please contact our office. The following attachments cannot be sent through Care Everywhere.Pancreatic Enzymes ([employer] [place]) (Eritrean)documented in this encounter [facility] 01-14-2025 Discharge summary Note Date/Time January 14, 2025 10:56am [facility] Medical Records Department [address] [place] [address] Instructions for Home/Discharge Instructions 01/14/25 1042 MR#: [id number] Acct: [id number] Name: ERICK GAUTAM Rep #:[id number] : 1955 69 From: Elin Benites DO PCP: Dr. Belle Monk MD Status:ADM IN Discharge Instructions Diet Discharge Diet: 1800 Calorie Control Diet DC O2, CPAP, BIPAP needs Home O2 Discharge instructions: No Dressing / Incision Discharge Activity: Return to Normal Activity Weight Bearing Status: Full weight bearing Follow Up Care Test Results: Test results from this visit will be discussed in further detail at your follow-up appointment, if applicable. Discharge Plan Admission Admit Date/Time: 01/12/25 13:33 Primary Reason for Your Visit: obstructive jaundice Attending Provider: Elin Benites Primary Care Provider: Belle Monk Consulting Providers: Matilde Henry Discharge Orders/Prescriptions Prescriptions: Continued Januvia 25 mg tablet 25 mg PO QHS Referrals / Follow Up: Belle Monk MD [Primary Care Provider] - Petra Sawyer MD [Med Staff - Active Staff] - See Referral Note (stop by hisoffice today to make an appointment for next week) Disposition Disposition (needs filled in before D/C Order can be placed): Home, Self Care 01/14/25 1056<Electronically signed by Elin Benites DO>Elin Benites DO CC: Dr. Belle Monk MD; Dr. Matilde Henry MD ~ Signed [facility] Work Phone: [phone]) 407-260606-27-2025 Discharge summary [facility] Medical Records Department [address] [place] [address] Instructions for Home/Discharge Instructions 01/14/25 1042 MR#: [id number] Acct: [id number] Name: ERICK GAUTAM Rep #:[id number] : 1955 69 From: Elin Benites DO PCP: Dr. Belle Monk MD Status:ADM IN Discharge Instructions Diet Discharge Diet: 1800 Calorie Control Diet DC O2, CPAP, BIPAP needs Home O2 Discharge instructions: No Dressing / Incision Discharge Activity: Return to Normal Activity Weight Bearing Status: Full weight bearing Follow Up Care Test Results: Test results from this visit will be discussed in further detail at your follow- up appointment, if applicable. Discharge Plan Admission Admit Date/Time: 01/12/25 13:33 Primary Reason for Your Visit: obstructive jaundice Attending Provider: Elin Benites Primary Care Provider: Belle Monk Consulting Providers: Matilde Henry Discharge Orders/Prescriptions Prescriptions: Continued Januvia 25 mg tablet 25 mg PO QHS Referrals / Follow Up: Belle Monk MD [Primary Care Provider] - Petra Sawyer MD [Med Staff - Active Staff] - See Referral Note (stop by hisoffice today to make an appointment for next week) Disposition Disposition (needs filled in before D/C Order can be placed): Home, Self Care 01/14/25 1056Elin Kamari GUEVARA CC: Dr. Belle Monk MD; Dr. Matilde Henry MD ~ Signed [facility]06-27-2025 [facility] Medical Records Department [address] [place] [address] Discharge Summary 01/14/25 1056 MR#: [id number] Acct: [id number] Name: ERICK GAUTAM Rep #: [id number] : 1955 69 From: Elin Benites DO PCP: Dr. Belle Monk MD Status:DIS IN Location: [facility] AC115-9 Providers Date of Admission: 01/12/25 Date of Discharge: 01/14/25 Primary Care Physician: Dr. Belle Monk MD Consultations 01/12/25 15:01 Consult: Gastroenterology Routine Consulting Provider: [facility] Reason for Consult: RUQ pain, jaundice EMERGENT Consult: No MD Notified: Yes Date Notified: 01/12/25 Time Notified: 13:35 Method of Notification: Text Reason For Visit: RIGHT UPPER QUADRANT PAIN JAUNDICE Diagnosis Discharge Diagnosis (1) Jaundice: Status: Acute Code(s): R17 - Unspecified jaundice Plan 1. 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 #2 type 2 diabetes-patient's blood sugars will be monitored, sliding scale insulin will be administered as needed Total clinical time spent by myself addressing the patient's medical issues, reviewing all of his data, and collaborating with patient's care team: 35-minute Medications at Discharge Home Medications sitagliptin phosphate 25 mg tablet (Januvia) 25 mg PO QHS 01/12/25 Hospital Course Operations ERCP (With biopsy of a mass to the common bile duct and placement of the stent in the common bile) Summary of Care Provided Minutes Spent on Discharge: 31 Hospital Course: This 69-year-old white male was seen in the emergency room at [facility] with complaints of jaundice and right upper quadrant abdominal discomfort. He had gone to Dr. Stauffer's office for an office visit regarding a possible gallbladder surgery, he underwent an ultrasound prior to his visit which showed a dilated common bile duct and a distended gallbladder. Patient's bilirubin was 12.5, AST was 51, ALT was 112 and alkaline phosphatase was 292. Patient's glucose was 374, patient was slightly neutropenic at 4. Patient underwent CT of the abdomen and pelvis which showed a hypervascular lesion in the superior aspect of the right hepatic lobe, there is a circumscribed low-density lesion in the left hepatic lobe also. There was moderate intrahepatic biliary dilation, the proximal bile duct is dilated to 2.5 cm, the distal bile duct measures 0.7 cm at the pancreatic head, the pancreatic duct was dilated, the gallbladder was distended, the spleen was enlarged and there was noted to be a stone in the right bladder base. Patient was admitted to [place] [address], and MRCP was obtained, it was read out with findings consistent with an isodense filling defect in the mid aspect of the common bile duct suspicious for soft tissue mass unlikely to be common bile duct stone. Patient underwent an ERCP and there was noted to be a mass in the common bile duct on the ERCP, biopsy was taken of the mass and a stent was placed. Patient's abdominal discomfort improved, on 01/14/2025, patient was seen and examined: On examination he appeared in good health and spirits, patient was jaundiced. Vital signs as documented. Skin warm and dry and without overt rashes. Neck without JVD, neck was supple, trachea midline, thyroid was normal. Lungs clear bilaterally, normal air movement was noted. Heart exam notable for regular rhythm, normal sounds and absence of murmurs, rubs or gallops. Abdomen unremarkable and without evidence of organomegaly, masses, or abdominal aortic enlargement. Bowel sounds are present, abdomen is not distended. Extremities nonedematous, no cyanosis was noted, no clubbing was noted. Neuro: Cranial nerves II through XII are grossly intact, no focal motor deficits were noted, sensation to light touch and pinprick intact, motor exam 5/5 throughout. Psych: Patient is alert and oriented x3, he does not appear anxious or depressed, he does not appear agitated. Patient was discharged home in stable condition on 01/14/2025. Weight / BMI Weight Weight: 83.461 kg Body Mass Index (BMI) 25.7 ABG / Lab / Microbiology Data 01/13/25 05:12 01/13/25 05:12 Laboratory: Laboratory Results - last 24 hr 01/12/25 20:02: Hepatitis A IgM Ab Negative, Hep Bs Antigen Negative, Hep B Core IgM Ab Negative, Hepatitis C Ab (EIA) Non Reactive, Hep C Ab Comment Comment 01/13/25 05:12: ASYA-1 Antibody <0.2, SS-A/Ro IgG Antibody < 0.2, SS-B/La IgG Antibody < 0.2, Sm (Krishna) Antibody <0.2, AUTO CUSTOMIZE PAINTER Antibody <0.2, Scl-70 Scleroderma Ab 0.3, Double Strand DNA Ab <1, Antichromatin Antibodies <0.2, Centromere (more content not included)...[facility]06-27-2025 Radiology Diagnostic study note [facility] Imaging Services [address] [place] [address] ERCP Biliary/Pancreas MR#: [id number] Acct: [id number] Name: ERICK GAUTAM Rep #: [id number] : 1955 M 69 From: Huang Santiago MD PCP: Dr. Belle Monk MD Status: ADM IN Study:ERCP Biliary/Pancreas Date of Exam: 01/13/25 Exam# [id number] Ordering Dr: Larry Webber DO PROCEDURE: ERCP BILIARY/PANCREAS; O.R. FLUORO FOR C-ARM 01/13/2025 REASON FOR EXAM: ERCP TECHNIQUE: Intraoperative fluoroscopy for ERCP. 7 fluoroscopic images were also obtained. Fluoroscopy time: 67.1 seconds. 21.38 mGy dose. RAD/ERCP Biliary/Pancreas IMPRESSION: Intraoperative fluoroscopy for ERCP. 7 fluoroscopic images were also obtained. Reading Location: [place] [address] CC: Dr. Belle Monk MD; DO Raf Faulkner Nurse Consultant: Signed [facility]06-27-2025 Radiology Diagnostic study note [facility] Imaging Services [address] [place] [address] O.R. Fluoro for C-Arm MR#: [id number] Acct: [id number] Name: ERICK GAUTAM Rep #: [id number] : 1955 M 69 From: Huang Santiago MD PCP: Dr. Belle Monk MD Status: ADM IN Study:O.R. Fluoro for C-Arm Date of Exam: 01/13/25 Exam# [id number] Ordering Dr: Larry Webber DO PROCEDURE: ERCP BILIARY/PANCREAS; O.R. FLUORO FOR C-ARM 01/13/2025 REASON FOR EXAM: ERCP TECHNIQUE: Intraoperative fluoroscopy for ERCP. 7 fluoroscopic images were also obtained. Fluoroscopy time: 67.1 seconds. 21.38 mGy dose. RAD/O.R. Fluoro for C-Arm IMPRESSION: Intraoperative fluoroscopy for ERCP. 7 fluoroscopic images were also obtained. Reading Location: [place] [address] CC: Dr. Belle Monk MD; Trevon Webber DO ~ Nurse Consultant: Signed [facility]06-26-2025 Consult note Author [facility]a [facility] Note Date/Time January 13, 2025 6:04 pm [facility] Medical Records Department [address] [place] [address] Anesthesia Postop Eval II 01/13/25 1803 MR#: [id number] Acct: [id number] Name: ERICK GAUTAM Rep #:[id number] : 1955 69 From: Bernarda Rizo CRNA PCP: Dr. Belle Monk MD Status:ADM IN Y Race: C Location: [facility] MS319 1 Anesthesia Postop Eval I Sum Postop Eval Completion status Anesthesia document: Postop Eval 1 completed: Yes Anesthesia Postop Eval I Summary Anesthesia Postop Eval I Summary: Anesthesia Postop Eval I: Assessment Summary Airway patent Yes 01/13/25 14:38 HARDENING MACHINE OPERATOR.TNES Spontaneous unlabored Yes 01/13/25 14:38 HARDENING MACHINE OPERATOR.TNES respirations Mental status nausea No 01/13/25 14:38 HARDENING MACHINE OPERATOR.TNES Vomiting No 01/13/25 14:38 HARDENING MACHINE OPERATOR.TNES Anesthesia Postop Eval I: Fluid Summary Crystalloid volume administer 800 01/13/25 14:38 HARDENING MACHINE OPERATOR.TNES (ml) Colloids volume administered ( ml) Blood Product volume administered (ml) Total IV fluid infused 800 01/13/25 14:38 HARDENING MACHINE OPERATOR.TNES Anesthesia Postop Eval I: Summary Notes Anesthesia Complication No 01/13/25 14:38 HARDENING MACHINE OPERATOR.TNES Anesthesia Complication Comment: Post-operative progress note Anesthesia: Postop Eval II Evaluation Mental status: Awake Pain Level: 2 nausea: No Vomiting: No 01/13/25 0414 <Electronically signed by Bernarda beauchamp CRNA> Date _ Bernarda Rizo HARDENING MACHINE OPERATOR Cosigner Signature: Date CC: ~ Signed [facility] Work Phone: 1(413) 707-962406-26-2025 Progress note Author [facility]in [facility] Note Date/Time January 13, 2025 4:54 pm [facility] Medical Records Department [address] [place] [address] Progress Note - Hospitalist 01/13/25 1650 MR#: [id number] Acct: [id number] Name: ERICK GAUTAM Rep #:[id number] : 1955 69 From: Elin Benites DO PCP: Dr. Belle Monk MD Status:ADM IN Location: [place] [address] Reason for Visit Reason for Visit: Diagnoses Type 2 diabetes mellitus without complications (01/12/25) Other specified diseases of biliary tract (01/12/25) Other specified diseases of pancreas (01/12/25) Right upper quadrant pain (01/12/25) Unspecified jaundice (01/12/25) Subjective Subjective Patient was seen and examined today, he underwent an ERCP today, I talked directly with the finishing machine operator who stated there was a neoplasm in the common bile duct, a stent was placed. Discussions were carried out with the family and the patient as to where he would want to be referred to, gastroenterology stated that he would recommend either the [facility] or [facility]. At this time, patient's would prefer the [facility] but the patient stated that he would rather go to [facility]. They will have a further discussion among themselves to decide where he would want to go, I will attempt to see if I can facilitate a transfer directly to another hospital to expedite treatment. Objective Data Objective Data Vital Signs: Vital Signs Temp Pulse Resp BP Pulse Ox O2 Del Method 97.5 F L 70 16 138/82 H 100 Room Air 01/13/25 15:07 01/13/25 15:07 01/13/25 15:07 01/13/25 15:07 01/13/25 15:07 01/13/25 15:07 Oxygen Delivery Method Room Air Weight: 83.461 kg Body Mass Index (BMI) 25.7 Intake & Output: Intake and Output for Last 24 Hours 01/11/25 01/12/25 01/13/25 23:59 23:59 23:59 Intake Total 1330 / 1330 670 / 670 Balance 1330 / 1330 670 / 670 Lab / Micro Data 01/13/25 05:12 01/13/25 05:12 Labs: Laboratory Results - last 24 hr 01/12/25 16:29: POC Glucose 237 H 01/12/25 20:02: ESR 27 H, Lactate Dehydrogenase 143, C-React Prot Ext Range 5.58H 01/12/25 21:23: POC Glucose 222 H 01/13/25 05:12: WBC 4.3 L, RBC 4.52 L, Hgb 13.5, Hct 38.5 L, MCV 85.2, MCH 29.9,MCHC 35.1, RDW Std Deviation 43.9, RDW Coeff of Monik 14.1, Plt Count 233, MPV 10.1, Immature Gran % (Auto) 0.500, Neut % (Auto) 70.7 H, Lymph % (Auto) 16.9 L,Spencer % (Auto) 9.9, Eos % (Auto) 1.8, Baso % (Auto) 0.2, Absolute Neuts (auto) 3.1, Absolute Lymphs (auto) 0.73 L, Nucleated RBC % 0, Sodium 136, Potassium 4.2, Chloride 102, Carbon Dioxide 22.0, Anion Gap 12, BUN 20 H, Creatinine 0.71,Estim Creat Clear Calc 89.98, Est GFR (MDRD) Non-Af 99, BUN/Creatinine Ratio 27.3 H, Glucose 258 H, Calcium 9.1, Total Bilirubin 12.20 H, AST 50 H, ALT 94 H,Alkaline Phosphatase 267 H, Total Protein 6.1, Albumin 3.6, Globulin 2.5, Albumin/Globulin Ratio 1.4, ASYA-1 Antibody TNP, Sm (Krishna) Antibody TNP, AUTO CUSTOMIZE PAINTER Antibody TNP, Scl-70 Scleroderma Ab TNP, Antichromatin Antibodies TNP, Centromere B Antibody TNP 01/13/25 05:46: POC Glucose 240 H 01/13/25 11:37: POC Glucose 222 H Radiography Diagnostic Testing: Radiology Impression MRCP 01/12/25 18:19 IMPRESSION: Findings consistent with an isointense filling defect in the mid aspect of the common bile duct suspicious for a soft tissue mass, unlikely common bile duct stone. Associated intrahepatic and extrahepatic blade ductal dilatation as well as dilatation of the gallbladder and pancreatic duct. Left renal cyst. Reading Location: [place] [address] Physical Exam Const alert, oriented x3 and no apparent distress Constitutional Narrative: Patient is visibly jaundiced General Appearance: cooperative, well kempt and well developed Orientation / Consciousness: awake, oriented to person, oriented to place and oriented to time HEENT normocephalic, head/scalp atraumatic and moist oral mucous membranes Eyes PERRL, EOMs intact bilaterally and conjunctivae normal Neck supple, no JVD, thyroid normal and no carotid bruits General: trachea midline Resp normal respiratory effort, no retractions, no use of accessory muscles and clearto auscultation bilaterally Auscultation: Negative for rales, rhonchi or wheezes Cardio regular rate, regular rhythm, S1 normal heart sound, S2 normal heart sound, no murmurs, no rub and no gallops GI normal to inspection, nondistended, normoactive bowel sounds, soft to palpation,non-tender and non-distended Extremity no clubbing, cyanosis or edema Skin no rashes or lesions noted General Skin Exam: no breakdown Neuro oriented x3, CN's II-XII intact bilaterally, moves all extremities, no focal motor deficits and no sensory deficits noted Sensorium / Orientation: awake and alert Speech: speech normal Psych affect normal Assessment & Plan Assessment/Plan (1) Jaundice: PLAN: Plan 1. 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 #2 type 2 diabetes-patient's blood sugars will be monitored, sliding scale insulin will be administered as needed Total clinical time spent by myself addressing the patient's medical issues, reviewing all of his data, and collaborating with patient's care team: 35-minute Charges/Coding Visit Charges Inpatient E&M: 75092 Subs Hosp L2 01/13/25 1651 <Electronically signed by Elin Benites DO> Cosigner Signature (if applicable): CC: ~ Signed [facility] Work Phone: 1(502) 230-773206-26-2025 Consult note [facility] Medical Records Department [address] [place] [address] Anesthesia Postop Eval II 01/13/25 1803 MR#: [id number] Acct: [id number] Name: ERICK GAUTAM Rep #:[id number] : 1955 69 From: Bernarda Rizo CRNA PCP: Dr. Belle Monk MD Status:ADM IN Y Race: C Location: [address] Anesthesia Postop Eval I Sum Postop Eval Completion status Anesthesia document: Postop Eval 1 completed: Yes Anesthesia Postop Eval I Summary Anesthesia Postop Eval I Summary: Anesthesia Postop Eval I: Assessment Summary Airway patent Yes 01/13/25 14:38 HARDENING MACHINE OPERATOR.TNES Spontaneous unlabored Yes 01/13/25 14:38 HARDENING MACHINE OPERATOR.TNES respirations Mental status nausea No 01/13/25 14:38 HARDENING MACHINE OPERATOR.TNES Vomiting No 01/13/25 14:38 HARDENING MACHINE OPERATOR.TNES Anesthesia Postop Eval I: Fluid Summary Crystalloid volume administer 800 01/13/25 14:38 HARDENING MACHINE OPERATOR.TNES (ml) Colloids volume administered ( ml) Blood Product volume administered (ml) Total IV fluid infused 800 01/13/25 14:38 HARDENING MACHINE OPERATOR.TNES Anesthesia Postop Eval I: Summary Notes Anesthesia Complication No 01/13/25 14:38 HARDENING MACHINE OPERATOR.TNES Anesthesia Complication Comment: Post-operative progress note Anesthesia: Postop Eval II Evaluation Mental status: Awake Pain Level: 2 nausea: No Vomiting: No 01/13/25 1804 a HARDENING MACHINE OPERATOR> Date _ Bernarda ca HARDENING MACHINE OPERATOR Cosigner Signature: Date CC: ~ Signed [facility]06-26-2025 Procedure note [facility] Medical Records Department [address] [place] [address] Operative Report - CC Letter MR#: [id number] Acct: [id number] Name: ERICK GAUTAM Rep #:[id number] : 1955 69 From: Trevon Friend DO PCP: Dr. Belle Monk MD Status:ADM IN 01/13/2025 Belle Monk [address] [place] [address] Re : ERCP procedure for Erick Gautam Dear Dr. Monk This procedure was performed on December. My impressions and recommendations are as follows: Impressions : - Severely narrowed lumen in the middle third of the main bile duct visualized via SpyGlass. 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 - The upper third of the main bile duct, left and right hepatic ducts and all intrahepatic branches and common hepatic duct were dilated, secondary to a stricture. - Choledocholithiasis was found. Complete removal was accomplished by biliary sphincterotomy and balloon extraction. - A biliary sphincterotomy was performed. - The biliary tree was swept. - Cells for cytology obtained in the middle third of the main bile duct. - Biopsy was performed in the middle third of the main bile duct. - One temporary stent was placed into the common bile duct. Recommendations : My findings are described in the full procedure note, which is enclosed. If I can be of further assistance, please feel free to contact me at . Sincerely, Trevon Webber DO 01/13/2025 5:39:20 PM This report has been signed electronically. 01/13/25 1739 Date _ Trevon Webber DO Cosigner Signature: Date (if indicated) CC: Dr. Belle Monk MD; Dr. Elin Benites DO; Dr. Matilde Henry MD ~ Date Dictated: 01/13/25 1301 Date Transcribed: Nurse Consultant: RF Signed [facility]06-26-2025 Procedure note [facility] Medical Records Department [address] [place] [address] ERCP Report MR#: [id number] Acct: [id number] Name: ERICK GAUTAM Rep #:[id number] : 1955 69 From: Trevon Webber DO PCP: Dr. 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 Refer to note in patient chart for documentation of history and physical. Patient has symptoms of acute right upper quadrant abdominal pain and acute jaundice. This patient has no history of previous ERCP. This patient has no history of surgical alteration of the upper digestive tract anatomy. Complications: No immediate complications. Procedure: Pre-Anesthesia Assessment: - Prior to the procedure, a History and Physical was performed, and patient medications and allergies were reviewed. The patient is competent. The risks and benefits of the procedure and the sedation options and risks were discussed with the patient. All questions were answered and informed consent was obtained. Patient identification and proposed procedure were verified by the physician. Prophylactic Antibiotics: The patient does not require prophylactic antibiotics. Prior Anticoagulants: The patient has taken no anticoagulant or antiplatelet agents except for NSAID medication. ASA Grade Assessment: III - A patient with severe systemic disease. After reviewing the risks and benefits, the patient was deemed in satisfactory condition to undergo the procedure. The anesthesia plan was to use monitored anesthesia care (MAC). Immediately prior to administration of medications, the patient was re-assessed for adequacy to receive sedatives. The heart rate, respiratory rate, oxygen saturations, blood pressure, adequacy of pulmonary ventilation, and response to care were monitored throughout the procedure. The physical status of the patient was re-assessed after the procedure. After obtaining informed consent, the scope was passed under direct vision. Throughout the procedure, the patient's blood pressure, pulse, and oxygen saturations were monitored continuously. The Duodenoscope was introduced through the mouth, and advanced to the duodenum and used to inject contrast into the bile duct. The ERCP was accomplished without difficulty. The patient tolerated the procedure well. 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 The esophagus was successfully intubated under direct vision. The scope was advanced to a normal major papilla in the descending duodenum without detailed examination of the pharynx, larynx and associated structures, and upper GI tract. The upper GI tract was grossly normal. The bile duct was deeply cannulated with the short-nosed traction sphincterotome. Contrast was injected. I personally interpreted the bile duct images. Ductal flow of contrast was adequate. Image quality was adequate. Contrast extended to the entire biliary tree. Opacification of the entire opacified area and entire biliary tree was successful. The maximum diameter of the ducts was 10 mm. The middle third of the main bile duct contained a single localized stenosis 6 mm in length. The upper third of the main bile duct, common hepatic duct, hepatic duct bifurcation and left and right hepatic ducts and all intrahepatic branches were diffusely dilated, secondary to a stricture. The largest diameter was 12 mm. A long 0.025 inch Jagwire was passed into the biliary tree. A 5 mm biliary sphincterotomy was made with a traction (standard) sphincterotome using ERBE electrocautery. There was no post-sphincterotomy bleeding. The biliary tree was swept with a 12 mm balloon starting at the bifurcation, left intrahepatic duct(s) and right intrahepatic duct(s). Sludge was swept from the duct. All stones were removed. Cells for cytology were obtained by brushing in the middle third of the main bile duct. The bile duct was explored endoscopically using the SpyGlass direct visualization system. The SpyScope was advanced to the right intrahepatic duct(s). Visibility with the scope was good. The lumen of the middle third of the main bile duct was severely narrowed. The middle third of the main bile duct contained a single localized stenosis 6 mm in length. The middle third of the main bile duct was biopsied with a HubCastite miniature biopsy forceps for histology. One 10 Fr by 12 cm temporary stent was placed 5 cm into the common bile duct. Bile flowed through the stent. The stent was in good position. Impression: - Severely narrowed lumen in the middle third of the main bile duct visualized via SpyGlass. 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 - The upper third of the main bile duct, left and right hepatic ducts and all intrahepatic branches and common hepatic duct were dilated, secondary to a stricture. - Choledocholithiasis was found. Complete removal was accomplished by biliary sphincterotomy and balloon extraction. - A biliary sphincterotomy was performed. - The biliary tree was swept. - Cells for cytology obtained in the middle third of the main bile duct. - Biopsy was performed in the middle third of the main bile duct. - One temporary stent was placed into the common bile duct. Procedure Code(s): --- Professional --- 37414, Endoscopic retrograde cholangiopancreatography (ERCP); with placement of endoscopic stent into biliary or pancreatic duct, including pre- and post-dilation and guide wire passage, when performed, including sphincterotomy, when performed, each stent 09538, 51, Endoscopic retrograde cholangiopancreatography (ERCP); with removal of calculi/debris from biliary/pancreatic duct(s) 39809, 59, Endoscopic retrograde cholangiopancreatography (ERCP); with biopsy, single or multiple 90681, Endoscopic cannulation of papilla with direct visualization of pancreatic/common bile duct(s) (List separately in addition to code(s) for primary procedure) 07623, 26, Endoscopic catheterization of the biliary ductal system, radiological supervision and interpretation CPT copyright 2021 [employer]. All rights reserved. The codes documented in this report are preliminary and upon package worker review may be revised to meet current compliance requirements. Trevon Webber DO 01/13/2025 5:39:20 PM This report has been signed electronically. Number of Addenda: 0 Note Initiated On: 01/13/2025 1:01 PM 01/13/25 1739 Date _ Trevon Webber DO Cosigner Signature: Date (if indicated) CC: Dr. Belle Monk MD; Trevon Webber DO ~ Date Dictated: 01/13/25 1301 Date Transcribed: Nurse Consultant: RF Signed [facility]06-26-2025 Progress note [facility] Medical Records Department [address] [place] [address] Progress Note - Hospitalist 01/13/25 1650 MR#: [id number] Acct: [id number] Name: ERICK GAUTAM Rep #:[id number] : 1955 69 From: Elin Benites DO PCP: Dr. Belle Monk MD Status:ADM IN Location: [place] [id number] Reason for Visit Reason for Visit: Diagnoses Type 2 diabetes mellitus without complications (01/12/25) Other specified diseases of biliary tract (01/12/25) Other specified diseases of pancreas (01/12/25) Right upper quadrant pain (01/12/25) Unspecified jaundice (01/12/25) Subjective Subjective Patient was seen and examined today, he underwent an ERCP today, I talked directly with the finishing machine operator who stated there was a neoplasm in the common bile duct, a stent was placed. Discussionswere carried out with the family and the patient as to where he would want to be referred to, gastro enterology stated that he would recommend either the [facility] or [facility]. At this time, patient's would prefer the [facility] but the patient stated that he would rather go to [facility]. They will have a further discussion among themselves to decide where he would want to go, I will attempt to see if I can facilitate a transfer directly to another hospital to expedite treatment. Objective Data Objective Data Vital Signs: Vital Signs Temp Pulse Resp BP Pulse Ox O2 Del Method 97.5 F L 70 16 138/82 H 100 Room Air 01/13/25 15:07 01/13/25 15:07 01/13/25 15:07 01/13/25 15:07 01/13/25 15:07 01/13/25 15:07 Oxygen Delivery Method Room Air Weight: 83.461 kg Body Mass Index (BMI) 25.7 Intake & Output: Intake and Output for Last 24 Hours 01/11/25 01/12/25 01/13/25 23:59 23:59 23:59 Intake Total 1330 / 1330 670 / 670 Balance 1330 / 1330 670 / 670 Lab / Micro Data 01/13/25 05:12 01/13/25 05:12 Labs: Laboratory Results - last 24 hr 01/12/25 16:29: POC Glucose 237 H 01/12/25 20:02: ESR 27 H, Lactate Dehydrogenase 143, C-React Prot Ext Range 5.58H 01/12/25 21:23: POC Glucose 222 H 01/13/25 05:12: WBC 4.3 L, RBC 4.52 L, Hgb 13.5, Hct 38.5 L, MCV 85.2, MCH 29.9,MCHC 35.1, RDW Std Deviation 43.9, RDW Coeff of Monik 14.1, Plt Count 233, MPV 10.1, Immature Gran % (Auto) 0.500, Neut %(Auto) 70.7 H, Lymph % (Auto) 16.9 L,Spencer % (Auto) 9.9, Eos % (Auto) 1.8, Baso % (Auto) 0.2, Absolute Neuts (auto) 3.1, Absolute Lymphs (auto) 0.73 L, Nucleated RBC % 0, Sodium 136, Potassium 4.2, Chloride 102, Carbon Dioxide 22.0, Anion Gap 12, BUN 20 H, Creatinine 0.71,Estim Creat Clear Calc 89.98, Est GFR (MDRD) Non-Af 99, BUN/Creatinine Ratio 27.3 H, Glucose 258 H, Calcium 9.1, Total Bilirubin 12.20 H, AST 50 H, ALT 94 H,Alkaline Phosphatase 267 H, Total Protein 6.1, Albumin 3.6, Globulin 2.5, Albumin/Globulin Ratio 1.4, ASYA-1 Antibody TNP, Sm (Krishna) Antibody TNP, AUTO CUSTOMIZE PAINTER Antibody TNP, Scl-70Scleroderma Ab TNP, Antichromatin Antibodies TNP, Centromere B Antibody TNP 01/13/25 05:46: POC Glucose 240 H 01/13/25 11:37: POC Glucose 222 H Radiography Diagnostic Testing: Radiology Impression MRCP 01/12/25 18:19 IMPRESSION: Findings consistent with an isointense filling defect in the mid aspect of the common bile duct suspicious for a soft tissue mass, unlikely common bile duct stone. Associated intrahepatic and extrahepatic blade ductal dilatation as well as dilatation of the gallbladder and pancreatic duct. Left renal cyst. Reading Location: [place] [address] Physical Exam Const alert, oriented x3 and no apparent distress Constitutional Narrative: Patient is visibly jaundiced General Appearance: cooperative, well kempt and well developed Orientation / Consciousness: awake, oriented to person, oriented to place and oriented to time HEENT normocephalic, head/scalp atraumatic and moist oral mucous membranes Eyes PERRL, EOMs intact bilaterally and conjunctivae normal Neck supple, no JVD, thyroid normal and no carotid bruits General: trachea midline Resp normal respiratory effort, no retractions, no use of accessory muscles and clearto auscultation bilaterally Auscultation: Negative for rales, rhonchi or wheezes Cardio regular rate, regular rhythm, S1 normal heart sound, S2 normal heart sound, no murmurs, no rub and no gallops GI normal to inspection, nondistended, normoactive bowel sounds, soft to palpation,non-tender and non-distended Extremity no clubbing, cyanosis or edema Skin no rashes or lesions noted General Skin Exam: no breakdown Neuro oriented x3, CN's II-XII intact bilaterally, moves all extremities, no focal motor deficits and no sensory deficits noted Sensorium / Orientation: awake and alert Speech: speech normal Psych affect normal Assessment & Plan Assessment/Plan (1) Jaundice: PLAN: Plan 1. 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 #2 type 2 diabetes-patient's blood sugars will be monitored, sliding scale insulin will be administered as needed Total clinical time spent by myself addressing the patient's medical issues, reviewing all of his data, and collaborating with patient's care team: 35-minute Charges/Coding Visit Charges Inpatient E&M: 64741 Subs Hosp L2 01/13/25 1654 Cosigner Signature (if applicable): CC: ~ Signed [facility]06-26-2025 Consult note Author Brian Vazquez [facility] Note Date/Time January 13, 2025 2:39 pm [facility] Medical Records Department [address] [place] [address] Anesthesia Postop Eval I 01/13/25 1438 MR#: [id number] Acct: [id number] Name: ERICK GAUTAM Rep #:[id number] : 1955 69 From: Brian OSBORN PCP: Dr. Belle Monk MD Status:ADM IN Y Race: C Location: [facility] [place] MS319 -1 Anesthesia: Postop Eval I Current Vital Signs Temperature: 97.5 F Pulse Rate: 85 Blood Pressure: 135/91 Respiratory Rate: 16 Pulse Ox: 97 Assessment Airway patent: Yes Spontaneous unlabored respirations: Yes nausea: No Vomiting: No Anesthesia Complication: No Fluid Hydration Crystalloid volume administer (ml): 800 Total IV fluid infused: 800 Progress Note Anesthesia document: Postop Eval 1 completed: Yes 01/13/25 1439 <Electronically signed by Brian Vazquez CRNA> Date _ Brian Vazquez CRNA Cosigner Signature: Date CC: ~ Signed [facility] Work Phone: 1(942) 486-338006-26-2025 Consult note Author Claus Suggs [facility] Note Date/Time January 13, 2025 1:18 pm [facility] Medical Records Department [address] [place] [address] Pre-Anesthesia Evaluation 01/13/25 1315 MR#: [id number] Acct: [id number] Name: ERICK GAUTAM Rep #:[id number] : 1955 69 From: Claus Suggs MD PCP: Dr. Belle Monk MD Status:ADM IN Y Race: C Location: [place] [address] 1 ASA Classification* ASA Classification ASA Classification: 2 Assessment & Plan Anesthesia* Anesthesia Assessment Anesthesia Assessment: Discussed sedation and/or anesthesia options, risks, benefits, and alternatives with patient/parents/legal guardian/POA. Questions invited. The patient/parents/legal guardian/POA seems to understand and agrees to proceedwith anesthesia plan. Reviewed the physical assessment, medical history, allergy history and patient home medications list prior to surgery/procedure/anesthetic and documented any changes. Performed airway and anesthesia risk assessments. Anesthesia Type Anesthesia Type: General (Consider [place] scope intubation.) History Source History Obtained from:: Patient and Chart Anesthesia Focused Assessment* Temperature: 98.2 F Pulse Rate: 78 Blood Pressure: 144/79 Respiratory Rate: 16 Pulse Ox: 99 Oxygen Delivery Method: Room Air Airway Assessment Mouth opens: >3 cm Mallampati Score: IV Teeth Condition: Caps/Crowns (Patient has a couple crowns. They are tight.) Neck Range of motion (ROM): Limited ROM Labs Anesthesia Preop lab: CBC WBC 4.3 K/mm3 (4.4-11.0) L 01/13/25 05:12 01/13/25 RBC 4.52 M/mm3 (4.6-6.2) L 01/13/25 05:12 01/13/25 Hgb 13.5 g/dL (13.0-16.5) 01/13/25 05:12 01/13/25 Hct 38.5 % (40-54) L 01/13/25 05:12 01/13/25 Plt Count 233 K/mm3 (150-450) 01/13/25 05:12 01/13/25 CHEMISTRY Potassium 4.2 mmol/L (3.3-5.1) 01/13/25 05:12 01/13/25 Sodium 136 mmol/L (133-145) 01/13/25 05:12 01/13/25 BUN 20 mg/dL (4-19) H 01/13/25 05:12 01/13/25 Creatinine 0.71 mg/dL (0.70-1.20) 01/13/25 05:12 01/13/25 Glucose 258 mg/dL (70-99) H 01/13/25 05:12 01/13/25 POC Glucose 222 mg/dL (74-106) H 01/13/25 11:37 01/13/25 COAG Pre-Assessment Diagnosis/Proposed Procedure Planned Operative Procedure(s): Endoscopic retrograde cholangiopancreatography Anesthesia History Anesthesia History - ceo and president: Anesthesia History - ceo and president Hx Hospitalization Any Problems With Anesthesia Yes: N/V 01/13/25 00:08 Cholinesterase deficiency No 01/13/25 00:08 You/Your Family Experience No: pt unsure 01/13/25 00:08 fever (hyperthermia) with Relationship Recent Exposure to Contagious No 01/13/25 00:08 Disease Does patient have nerve No 01/13/25 00:08 stimulator Patient instructed to have No 01/13/25 00:08 device shut off --Does patient have Pacemaker No 01/13/25 12:57 or ICD? When Was Last Pacemaker Check QUESTION #4 FULL TEXT: You/Your Family Experience fever (hyperthermia) with Anesthesia Last Oral Intake Last Oral intake: Last Oral Intake NPO since 22:00 01/13/25 12:57 Meds taken in AM with sips of No 01/13/25 12:57 water? Meds patient instructed to take am of surgery PONV PONV - ceo and president: PONV - ceo and president Female HX of Motion Sickness HX of N/V After Surgery Non-Smoker Duration of Surgery greater than 60 minutes Number of Risk Factors PONV Score Height & Weight Height & Weight: Anesthesia: Height & Weight Height 5 ft 11 in 01/13/25 12:57 Weight: 83.461 kg 01/13/25 12:57 Body Mass Index (BMI) 25.7 01/13/25 12:57 Respiratory Assessment Respiratory Assessment - ceo and president: Respiratory Tract Infection Hx - ceo and president Hx Respiratory Tract Infection No 01/13/25 00:08 STOP Sleep Apnea STOP Sleep Apnea - ceo and president: STOP Sleep Apnea - ceo and president Hx Hypertension No 01/12/25 15:00 Hx Sleep Apnea No 01/12/25 15:00 CPAP BIPAP Do you snore loudly (louder No 01/12/25 15:00 than talking or can be heard Do you often feel tired/ No 01/12/25 15:00 fatigued/ sleepy during daytime? Has anyone observed you stop No 01/12/25 15:00 breathing during sleep? STOP Results Negative 01/12/25 15:00 QUESTION #5 FULL TEXT : Do you snore loudly (louder than talking or can be heard through closed doors)? 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 - ceo and president: Tobacco Use History - ceo and president Tobacco Use Smoking Status Never smoker 01/12/25 15:00 Hx Tobacco Use No 01/12/25 15:00 Years Smoking Packs Smoked per Day Smoking Cessation Date was within the last 15 years Hx Smoking Cessation Date Hx Smoking Cessation Counseling Hematologic Medial History Hematologic Hx - ceo and president: Hematologic Medical Hx - hospital monitor Hx of Blood Transfusion No 01/12/25 15:00 Hx of Transfusion in last 3 No 01/12/25 15:00 Months Date of Last Transfusion (if within last 3 months) Ever experience any problems No 01/12/25 15:00 with transfusion(s)? Specify any problems Hx of Preganancy in last 3 N/A 01/12/25 15:00 Months Nurse Filling Out Transfusion JRADER 01/12/25 15:00 & Questions: Date: 01/12/25 01/12/25 15:00 Time: 15:13 01/12/25 15:00 Patient unable to answer at this time (ie. confused, unrespo /Reproduction History /Reproductive History - ceo and president: /Reproductive Hx- ceo and president Hx Now Gestational Age (in weeks): EDC: Hx Hx Para Hx Section SAB Active Medications Active Medications: Current Medications Generic Name Dose Route Start Last Admin Trade Name Freq PRN Reason Stop Dose Admin Albuterol Sulfate 2.5 mg 01/12/25 15:01 Albuterol 2.5 Mg/3 Ml Vial.Neb. INHALATION Q2H PRN PRN SOB &/OR WHEEZING Glucagon 1 mg 01/12/25 15:01 Glucagon 1 Mg/Ml Syringe IM X1 PRN HYPOGLYCEMIA Protocol Dextrose 250 mls @ 0 mls/hr 01/12/25 15:01 Dextrose 10%-Water IV .Q0M PRN HYPOGLYCEMIA Protocol As Directed Sodium Chloride 250 mls @ 15 mls/hr 01/12/25 15:53 IV .[id number] PRN Saline Flush Sodium Chloride 250 mls @ 15 mls/hr 01/12/25 15:53 IV .[id number] PRN Additional IVPB Infusion Lactated Ringer's 1,000 mls @ 15 mls/hr 01/13/25 13:15 01/13/25 13:12 IV 15 mls/hr .Q48H JACOB Administration Ibuprofen 600 mg 01/12/25 15:01 Ibuprofen 600 Mg Tablet PO Q6H PRN PRN Pain Score 1-10 Insulin Human Lispro 0 unit 01/12/25 16:00 01/13/25 11:40 Insulin Lispro 100 Unit/Ml Insuln.Pen SC 2 u ACHS JACOB Administration Protocol Melatonin 10 mg 01/12/25 15:01 Melatonin 10 Mg Tablet PO QHS PRN PRN INSOMNIA Ondansetron HCl 4 mg 01/12/25 15:01 Ondansetron 4 Mg/2 Ml Vial IV Q8H PRN PRN NAUSEA/VOMITING Oxycodone HCl 5 mg 01/12/25 15:01 Oxycodone 5 Mg Tablet PO Q4H PRN PRN Pain Score 4-10 Senna/Docusate Sodium 2 tablet 01/12/25 15:01 Senna/Docusate Sodium 1 Tablet PO BID PRN PRN Constipation Sodium Chloride 10 - 40 ml 01/12/25 15:53 0.9% Saline Lock 10 Ml Syringe IV UD PRN SALINE FLUSH PFSH Medical History Diabetes mellitus, type 2 Umbilical hernia Gallbladder problem Nausea RUQ pain Cataract Home Medications ?Medication ?Instructions ?Recorded ?Last Taken ?Type sitagliptin phosphate 25 mg tablet 25 mg PO QHS 01/11/25 History (Onel) Allergy/AdvReac Type Severity Reaction Status Date / Time No Known Allergies Allergy Verified 01/12/25 08:55 Surgical History H/O right inguinal hernia repair History of appendectomy Social History household members: spouse Smoking Status: Never smoker Review of Systems (Anesthesia) ROS Narrative System reviewed and no additional complaints, except as documented. 01/13/25 1318 <Electronically signed by Claus dent MD> Date _ Claus Suggs MD Cosigner Signature: Date CC: ~ Signed [facility] Work Phone: 1(360) 647-510506-26-2025 Progress note Author Trevon Friend [facility] Note Date/Time January 13, 2025 1:06 pm [facility] Medical Records Department [address] [place] [address] Progress Note 01/13/25 1300 MR#: [id number] Acct: [id number] Name: ERICK GAUTAM Rep #:[id number] : 1955 69 From: Trevon Webber DO PCP: Dr. Belle Monk MD Status:ADM IN [facility] Note MRI/MRCP Abdomen without Contrast IMPRESSION: Findings consistent with an isointense filling defect in the mid aspect of the common bile duct suspicious for a soft tissue mass, unlikely common bile duct stone. Associated intrahepatic and extrahepatic blade ductal dilatation as well as dilatation of the gallbladder and pancreatic duct. Left renal cyst. Physical Exam Const alert, oriented x3, no apparent distress and healthy appearing General Appearance: cooperative GI normal to inspection, nondistended, normoactive bowel sounds, soft to palpation,non-tender and non-distended Percussion: normal to percussion Rectal Exam: deferred Assessment & Plan Assessment/Plan (1) Jaundice: (2) Dilated bile duct: (3) Dilated pancreatic duct: (4) RUQ pain: (5) Diabetes mellitus, type 2: PLAN: Plan 69-year-old with new onset diabetes in the setting of new onset weight loss, right upper quadrant discomfort and jaundice. Differential diagnosis does include microlithiasis,, ampullary lesion, pancreatic lesion, cholangiocarcinoma. He should undergo MRCP, CA 19-9, ESR, CRP, ERCP with possible spyglass, alpha-fetoprotein, IgG4, ANCA, protein electrophoresis, THANH comprehensive. Visit Charges Inpatient E&M: 05647 Subs Hosp L2 01/13/25 1306 <Electronically signed by Trevon Webber DO> Trevon Webber DO Cosigner Signature (if applicable): CC: ~ Signed [facility] Work Phone: [phone]) 154-840706-26-2025 Consult note [facility] Medical Records Department [address] [place] [address] Anesthesia Postop Eval I 01/13/25 1438 MR#: [id number] Acct: [id number] Name: ERICK GAUTAM Rep #:[id number] : 1955 69 From: Brian OSBORN PCP: Dr. Belle Monk MD Status:ADM IN Y Race: C Location: [place] [address] - Anesthesia: Postop Eval I Current Vital Signs Temperature: 97.5 F Pulse Rate: 85 Blood Pressure: 135/91 Respiratory Rate: 16 Pulse Ox: 97 Assessment Airway patent: Yes Spontaneous unlabored respirations: Yes nausea: No Vomiting: No Anesthesia Complication: No Fluid Hydration Crystalloid volume administer (ml): 800 Total IV fluid infused: 800 Progress Note Anesthesia document: Postop Eval 1 completed: Yes 01/13/25 1439 HARDENING MACHINE OPERATOR> Date _ Brian Taylor HARDENING MACHINE OPERATOR Cosigner Signature: Date CC: ~ Signed [facility]06-26-2025 Consult note [facility] Medical Records Department [address] [place] [address] Pre-Anesthesia Evaluation 01/13/25 1315 MR#: [id number] Acct: [id number] Name: ERICK GAUTAM Rep #:[id number] : 1955 69 From: Claus Suggs MD PCP: Dr. Belle Monk MD Status:ADM IN Y Race: C Location: [place] [address] 1 ASA Classification* ASA Classification ASA Classification: 2 Assessment & Plan Anesthesia* Anesthesia Assessment Anesthesia Assessment: Discussed sedation and/or anesthesia options, risks, benefits, and alternatives with patient/parents/legal guardian/POA. Questions invited. The patient/parents/legal guardian/POA seems to understand and agrees to proceedwith anesthesia plan. Reviewed the physical assessment, medical history, allergy history and patient home medications list prior to surgery/procedure/anesthetic and documented any changes. Performed airway and anesthesia risk assessments. Anesthesia Type Anesthesia Type: General (Consider [place] scope intubation.) History Source History Obtained from:: Patient and Chart Anesthesia Focused Assessment* Temperature: 98.2 F Pulse Rate: 78 Blood Pressure: 144/79 Respiratory Rate: 16 Pulse Ox: 99 Oxygen Delivery Method: Room Air Airway Assessment Mouth opens: >3 cm Mallampati Score: IV Teeth Condition: Caps/Crowns (Patient has a couple crowns. They are tight.) Neck Range of motion (ROM): Limited ROM Labs Anesthesia Preop lab: CBC WBC 4.3 K/mm3 (4.4-11.0) L 01/13/25 05:12 01/13/25 RBC 4.52 M/mm3 (4.6-6.2) L 01/13/25 05:12 01/13/25 Hgb 13.5 g/dL (13.0-16.5) 01/13/25 05:12 01/13/25 Hct 38.5 % (40-54) L 01/13/25 05:12 01/13/25 Plt Count 233 K/mm3 (150-450) 01/13/25 05:12 01/13/25 CHEMISTRY Potassium 4.2 mmol/L (3.3-5.1) 01/13/25 05:12 01/13/25 Sodium 136 mmol/L (133-145) 01/13/25 05:12 01/13/25 BUN 20 mg/dL (4-19) H 01/13/25 05:12 01/13/25 Creatinine 0.71 mg/dL (0.70-1.20) 01/13/25 05:12 01/13/25 Glucose 258 mg/dL (70-99) H 01/13/25 05:12 01/13/25 POC Glucose 222 mg/dL (74-106) H 01/13/25 11:37 01/13/25 COAG Pre-Assessment Diagnosis/Proposed Procedure Planned Operative Procedure(s): Endoscopic retrograde cholangiopancreatography Anesthesia History Anesthesia History - ceo and president: Anesthesia History - ceo and president Hx Hospitalization Any Problems With Anesthesia Yes: N/V 01/13/25 00:08 Cholinesterase deficiency No 01/13/25 00:08 You/Your Family Experience No: pt unsure 01/13/25 00:08 fever (hyperthermia) with Relationship Recent Exposure to Contagious No 01/13/25 00:08 Disease Does patient have nerve No 01/13/25 00:08 stimulator Patient instructed to have No 01/13/25 00:08 device shut off --Does patient have Pacemaker No 01/13/25 12:57 or ICD? When Was Last Pacemaker Check QUESTION #4 FULL TEXT: You/Your Family Experience fever (hyperthermia) with Anesthesia Last Oral Intake Last Oral intake: Last Oral Intake NPO since 22:00 01/13/25 12:57 Meds taken in AM with sips of No 01/13/25 12:57 water? Meds patient instructed to take am of surgery PONV PONV - ceo and president: PONV - ceo and president Female HX of Motion Sickness HX of N/V After Surgery Non-Smoker Duration of Surgery greater than 60 minutes Number of Risk Factors PONV Score Height & Weight Height & Weight: Anesthesia: Height & Weight Height 5 ft 11 in 01/13/25 12:57 Weight: 83.461 kg 01/13/25 12:57 Body Mass Index (BMI) 25.7 01/13/25 12:57 Respiratory Assessment Respiratory Assessment - ceo and president: Respiratory Tract Infection Hx - ceo and president Hx Respiratory Tract Infection No 01/13/25 00:08 STOP Sleep Apnea STOP Sleep Apnea - ceo and president: STOP Sleep Apnea - ceo and president Hx Hypertension No 01/12/25 15:00 Hx Sleep Apnea No 01/12/25 15:00 CPAP BIPAP Do you snore loudly (louder No 01/12/25 15:00 than talking or can be heard Do you often feel tired/ No 01/12/25 15:00 fatigued/ sleepy during daytime? Has anyone observed you stop No 01/12/25 15:00 breathing during sleep? STOP Results Negative 01/12/25 15:00 QUESTION #5 FULL TEXT : Do you snore loudly (louder than talking or can be heard through closeddoors)? 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 - ceo and president: Tobacco Use History - ceo and president Tobacco Use Smoking Status Never smoker 01/12/25 15:00 Hx Tobacco Use No 01/12/25 15:00 Years Smoking Packs Smoked per Day Smoking Cessation Date was within the last 15 years Hx Smoking Cessation Date Hx Smoking Cessation Counseling Hematologic Medial History Hematologic Hx - ceo and president: Hematologic Medical Hx - hospital monitor Hx of Blood Transfusion No 01/12/25 15:00 Hx of Transfusion in last 3 No 01/12/25 15:00 Months Date of Last Transfusion (if within last 3 months) Ever experience any problems No 01/12/25 15:00 with transfusion(s)? Specify any problems Hx of Preganancy in last 3 N/A 01/12/25 15:00 Months Nurse Filling Out Transfusion JRADER 01/12/25 15:00 & Questions: Date: 01/12/25 01/12/25 15:00 Time: 15:13 01/12/25 15:00 Patient unable to answer at this time (ie. confused, unrespo /Reproduction History /Reproductive History - ceo and president: /Reproductive Hx- ceo and president Hx Now Gestational Age (in weeks): EDC: Hx Hx Para Hx Section SAB Active Medications Active Medications: Current Medications Generic Name Dose Route Start Last Admin Trade Name Freq PRN Reason Stop Dose Admin Albuterol Sulfate 2.5 mg 01/12/25 15:01 Albuterol 2.5 Mg/3 Ml Vial.Neb. INHALATION Q2H PRN PRN SOB &/OR WHEEZING Glucagon 1 mg 01/12/25 15:01 Glucagon 1 Mg/Ml Syringe IM X1 PRN HYPOGLYCEMIA Protocol Dextrose 250 mls @ 0 mls/hr 01/12/25 15:01 Dextrose 10%-Water IV .Q0M PRN HYPOGLYCEMIA Protocol As Directed Sodium Chloride 250 mls @ 15 mls/hr 01/12/25 15:53 IV .[id number] PRN Saline Flush Sodium Chloride 250 mls @ 15 mls/hr 01/12/25 15:53 IV .[id number] PRN Additional IVPB Infusion Lactated Ringer's 1,000 mls @ 15 mls/hr 01/13/25 13:15 01/13/25 13:12 IV 15 mls/hr .Q48H JACOB Administration Ibuprofen 600 mg 01/12/25 15:01 Ibuprofen 600 Mg Tablet PO Q6H PRN PRN Pain Score 1-10 Insulin Human Lispro 0 unit 01/12/25 16:00 01/13/25 11:40 Insulin Lispro 100 Unit/Ml Insuln.Pen SC 2 u ACHS JACOB Administration Protocol Melatonin 10 mg 01/12/25 15:01 Melatonin 10 Mg Tablet PO QHS PRN PRN INSOMNIA Ondansetron HCl 4 mg 01/12/25 15:01 Ondansetron 4 Mg/2 Ml Vial IV Q8H PRN PRN NAUSEA/VOMITING Oxycodone HCl 5 mg 01/12/25 15:01 Oxycodone 5 Mg Tablet PO Q4H PRN PRN Pain Score 4-10 Senna/Docusate Sodium 2 tablet 01/12/25 15:01 Senna/Docusate Sodium 1 Tablet PO BID PRN PRN Constipation Sodium Chloride 10 - 40 ml 01/12/25 15:53 0.9% Saline Lock 10 Ml Syringe IV UD PRN SALINE FLUSH PFSH Medical History Diabetes mellitus, type 2 Umbilical hernia Gallbladder problem Nausea RUQ pain Cataract Home Medications ?Medication ?Instructions ?Recorded ?Last Taken ?Type sitagliptin phosphate 25 mg tablet 25 mg PO QHS 01/11/25 History (Onel) Allergy/AdvReac Type Severity Reaction Status Date / Time No Known Allergies Allergy Verified 01/12/25 08:55 Surgical History H/O right inguinal hernia repair History of appendectomy Social History household members: spouse Smoking Status: Never smoker Review of Systems (Anesthesia) ROS Narrative System reviewed and no additional complaints, except as documented. 01/13/25 1318 filipe HERRERA> Date _ Claus Suggs MD Cosigner Signature: Date CC: ~ Signed [facility]06-26-2025 Progress note [facility] Medical Records Department [address] [place] [address] Progress Note 01/13/25 1305 MR#: [id number] Acct: [id number] Name: ERICK GAUTAM Rep #:[id number] : 1955 69 From: Trevon Friend DO PCP: Dr. Belle Monk MD Status:ADM IN Location: [facility] [place]-3 Progress Note MRI/MRCP Abdomen without Contrast IMPRESSION: Findings consistent with an isointense filling defect in the mid aspect of the common bile duct suspicious for a soft tissue mass, unlikely common bile duct stone. Associated intrahepatic and extrahepatic blade ductal dilatation as well as dilatation of the gallbladder and pancreatic duct. Left renal cyst. Physical Exam Const alert, oriented x3, no apparent distress and healthy appearing General Appearance: cooperative GI normal to inspection, nondistended, normoactive bowel sounds, soft to palpation,non-tender and non-distended Percussion: normal to percussion Rectal Exam: deferred Assessment & Plan Assessment/Plan (1) Jaundice: (2) Dilated bile duct: (3) Dilated pancreatic duct: (4) RUQ pain: (5) Diabetes mellitus, type 2: PLAN: Plan 69-year-old with new onset diabetes in the setting of new onset weight loss, right upper quadrant discomfort and jaundice. Differential diagnosis does include microlithiasis,, ampullary lesion, pancreatic lesion, cholangiocarcinoma. He should undergo MRCP, CA 19-9, ESR, CRP, ERCP with possible spyglass, alpha-fetoprotein, IgG4, ANCA, protein electrophoresis, THANH comprehensive. Visit Charges Inpatient E&M: 79039 Subs Hosp L2 01/13/25 1306 Trevon Webber DO Cosigner Signature (if applicable): CC: ~ Signed [facility]06-25-2025 Consult note Author Trevon Webber [facility] Note Date/Time January 12, 2025 6:29 pm [facility] Medical Records Department [address] [place] [address] Consultation - GI 01/12/25 1821 MR#: [id number] Acct: [id number] Name: ERICK GAUTAM Rep #:[id number] : 1955 69 From: Trevon Webber DO PCP: Dr. Belle Monk MD Status:ADM IN Location: [facility] [facility] DW399-5 HPI Consult Data Date of Consult: 01/12/25 HPI Narrative Reason for Consultation: Jaundice right upper quadrant discomfort HPI Narrative: ERICK GAUTAM, is a 69 M who presents from the clinic after seeing surgery for right lower quadrant pain and possible need for cholecystectomy. Patient has a new diagnosis of diabetes beginning of the year. He has lost approximately 40 pounds since the beginning of the year. Initially, he had started cutting back on his sugars along with administration of metformin and Januvia he was able to control his blood sugars. He does not notice recent hemoglobin A1c. His PCP recently stopped his metformin due to bloating and uncomfortableness in his right upper quadrant. 01/05/2025 US/Abdomen Limited IMPRESSION: Hepatomegaly and diffuse fatty infiltration of the liver. Distended gallbladder with positive Jones's sign and small amount of pericholecystic fluid. Acalculous cholecystitis should be ruled out. Dilated common bile duct. 01/12/2025 : CT scan abdomen pelvis : there is a hypervascular lesion in the superior [...] 2.5 cm uncomplicated fat containing umbilical hernia. WBC 4.0 L, RBC 4.70, Hgb 13.9, Hct 40.2, MCV 85.5, MCH 29.6, MCHC 34.6, RDW StdDeviation 43.8, RDW Coeff of Monik 13.9, Plt Count 239, Total Bilirubin 12.50 H, AST 51 H, ALT 112 H, Alkaline Phosphatase 292 H, Total Protein 6.8, Albumin 3.9, Globulin 2.9Lipase 28 PFSH Medical History Diabetes mellitus, type 2 Umbilical hernia Gallbladder problem Nausea RUQ pain [...] of his skin Psychiatric: No complaints voiced Lab / Micro Data 01/12/25 09:45 01/12/25 09:45 Labs: Laboratory Results - last 24 hr 01/12/25 09:45: WBC 4.0 L, RBC 4.70, Hgb 13.9, Hct 40.2, MCV 85.5, MCH 29.6, MCHC 34.6, RDW Std Deviation 43.8, RDW Coeff of Monik 13.9, Plt Count 239, MPV 10.1, Immature Gran % (Auto) 0.500, Neut % (Auto) 72.7 H, Lymph % (Auto) 15.7 L,Spencer % (Auto) 9.7, Eos % (Auto) 1.2, [...] Total Bilirubin 12.50 H, AST 51 H, [id number] H, Alkaline Phosphatase 292 H, Total Protein 6.8, Albumin 3.9, Globulin 2.9,Albumin/Globulin Ratio 1.3, Lipase 28 01/12/25 10:10: Urine Color Berna, Urine Clarity Clear, Urine pH 6.0, Ur Specific [place] 1.015, Urine Protein 30 H, Urine Glucose (UA) 1000 H, Urine Ketones 5 H, Urine Occult Blood 250 H, Urine Nitrite Negative, Urine Bilirubin 3H, Urine Urobilinogen 4 H, Ur Leukocyte Esterase 25 H, Urine RBC 5-10 SEEN, Urine WBC 0 SEEN, Ur Squamous Epith Cells 0-5 SEEN, Urine Bacteria 2+, Urine Mucus RARE 01/12/25 16:29: POC Glucose 237 H Imaging Radiology Impression Abdomen/Pelvis CT 01/12/25 10:24 [...] fat containing umbilical hernia. Reading Location: [facility] Assessment & Plan Assessment/Plan (1) Jaundice: (2) Dilated bile duct: (3) Dilated pancreatic duct: (4) RUQ pain: (5) Diabetes mellitus, type 2: PLAN: Plan 69-year-old with new onset diabetes in the setting of new onset weight loss, right upper quadrant discomfort and jaundice. Differential diagnosis does include microlithiasis,, ampullary lesion, pancreatic lesion, cholangiocarcinoma. He should undergo MRCP, CA 19-9, ESR, CRP, ERCP with possible spyglass, alpha-fetoprotein, IgG4, ANCA, protein electrophoresis, THANH comprehensive. Charges/Coding Visit Charges Inpatient E&M: 64115 Init Hosp L3 01/12/251828 <Electronically signed by Trevon Webber DO> Cosigner Signature (if applicable): CC: Dr. Belle Monk MD~ Signed [facility] Work Phone: 1(241) 970-496906-25-2025 Consult note [facility] Medical Records Department [address] [place] [address] Consultation - GI 01/12/251820 MR#: [id number] Acct: [id number] Name: ERICK GAUTAM Rep #:[id number] : 1955 69 From: Trevon Webber DO PCP: Dr. Belle Monk MD Status:ADM IN Location: [facility] [place] XB704-1 HPI Consult Data Date of Consult: 01/12/25 HPI Narrative Reason for Consultation: Jaundice right upper quadrant discomfort HPI Narrative: ERICK GAUTAM, is a 69 M who presents from the clinic after seeing surgery for right lower quadrant pain and possible need for cholecystectomy. Patient has a new diagnosis of diabetes beginning of the year. He has lost approximately 40 pounds since the beginning of the year. Initially, he had startedcutting back on his sugars along with administration of metformin and Januvia he was able to control his blood sugars. He does not notice recent hemoglobin A1c. His PCP recently stopped his metformindue to bloating and uncomfortableness in his right upper quadrant. 01/05/2025 US/Abdomen Limited IMPRESSION: Hepatomegaly and diffuse fatty infiltration of the liver. Distended gallbladder with positive Jones's sign and small amount of pericholecystic fluid. Acalculous cholecystitis should be ruled out. Dilated common bile duct. 01/12/2025 : CT scan abdomen pelvis : there is a hypervascular lesion in the superior [...] body, 0.5 cm in the distal body, and0.5 cm in the tail. The gallbladder is distended to 11 cm in length. Consider hepatobiliary scan for further characterization. The spleen is enlarged at 15 cm in length. There is a 2.6 cm cyst in the midpole of the left kidney. There is a 1.1 cm stone in the right bladder base. There is a 2.5 cm uncomplicated fat containing umbilical hernia. WBC 4.0 L, RBC 4.70, Hgb 13.9, Hct 40.2, MCV 85.5, MCH 29.6, MCHC 34.6, RDW StdDeviation 43.8, RDW Coeff of Monik 13.9, Plt Count 239, Total Bilirubin 12.50 H, AST 51 H, ALT 112 H, Alkaline Phosphatase 292 H, Total Protein 6.8, Albumin 3.9, Globulin 2.9Lipase 28 [facility] Medical History Diabetes mellitus, type 2 Umbilical hernia Gallbladder problem Nausea RUQ pain [...] of his skin Psychiatric: No complaints voiced Lab / Micro Data 01/12/25 09:45 01/12/25 09:45 Labs: Laboratory Results - last 24 hr 01/12/25 09:45: WBC 4.0 L, RBC 4.70, Hgb 13.9, Hct 40.2, MCV 85.5, MCH 29.6, MCHC 34.6, RDW Std Deviation 43.8, RDW Coeff of Monik 13.9, Plt Count 239, MPV 10.1, Immature Gran % (Auto) 0.500, Neut % (Auto) 72.7 H, Lymph % (Auto) 15.7 L,Spencer % (Auto) 9.7, Eos % (Auto) 1.2, Baso % (Auto) 0.2, Absolute Neuts (auto) 2.9, Absolute Lymphs (auto) 0.63 L, Nucleated RBC % 0, Sodium 133, Potassium 4.0, Chloride 97 L, Carbon Dioxide 23.0, Anion Gap 13, BUN 22 H, Creatinine 0.81, Estim Creat Clear Calc 91.67, Est GFR (MDRD) Non-Af 96, BUN/Creatinine Ratio 27.8 H, Glucose 374 H, Calcium 9.2, Total Ejxnzhwss27.50 H, AST 51 H, UCE065 H, Alkaline Phosphatase 292 H, Total Protein 6.8, Albumin 3.9, Globulin 2.9,Albumin/Globulin Ratio 1.3, Lipase 28 01/12/25 10:10: Urine Color Berna, Urine Clarity Clear, Urine pH 6.0, Ur Specific [place] 1.015, Urine Protein 30 H, Urine Glucose (UA) 1000 H, Urine Ketones 5 H, Urine Occult Blood 250 H, Urine Nitrite Negative, Urine Bilirubin 3H, Urine Urobilinogen 4 H, Ur Leukocyte Esterase 25 H, Urine RBC 5-10SEEN, Urine WBC 0 SEEN, Ur Squamous Epith Cells 0-5 SEEN, Urine Bacteria 2+, Urine Mucus RARE 01/12/25 16:29: POC Glucose 237 H Imaging Radiology Impression Abdomen/Pelvis CT 01/12/25 10:24 [...] body, 0.5 cm in the distal body, and0.5 cm in the tail. The gallbladder is [...] fat containing umbilical hernia. Reading Location: [facility] Assessment & Plan Assessment/Plan (1) Jaundice: (2) Dilated bile duct: (3) Dilated pancreatic duct: (4) RUQ pain: (5) Diabetes mellitus, type 2: PLAN: Plan 69-year-old with new onset diabetes in the setting of new onset weight loss, right upper quadrant discomfort and jaundice. Differential diagnosis does include microlithiasis,, ampullary lesion, pancreatic lesion, cholangiocarcinoma. He should undergo MRCP, CA 19-9, ESR, CRP, ERCP with possible spyglass, alpha-fetoprotein, IgG4, ANCA, protein electrophoresis, THANH comprehensive. Charges/Coding Visit Charges Inpatient E&M: 42095 Init Hosp L3 01/12/25 7789 Cosigner Signature (if applicable): CC: Dr. Belle Monk MD~ Signed [facility]-2025 History and physical note Author Matilde Henry [facility] Note Date/Time January 12, 2025 1:38 pm [facility] Medical Records Department [address] [place] [address] H&P Exam - Hospitalist 01/12/25 1336 MR#: [id number] Acct: [id number] Name: ERICK GAUTAM Rep #:[id number] : 1955 69 From: Matidle Henry MD PCP: Dr. Belle Monk MD Status:REG ER Location: ED HPI - General General Date of Admission: 01/12/25 Date of Service: 01/12/25 Chief Complaint: RUQ pain, jaundice HPI Narrative ERICK GAUTAM, is a 69-year-old male with history of diabetes recently switched from Januvia to metformin who presented to [facility] ED 01/12/2025 with 2-1/2 weeks of jaundice [...] chills, no other new or acute complaints. PFSH Medical History (Updated 01/12/25 @ 13:37 by [...] (Auto) 72.7 H, Lymph % (Auto) 15.7 L,Spencer % (Auto) 9.7, Eos % (Auto) 1.2, [...] Total Bilirubin 12.50 H, AST 51 H, CPD591 H, Alkaline Phosphatase 292 H, Total Protein 6.8, Albumin 3.9, Globulin 2.9,Albumin/Globulin Ratio 1.3, Lipase 28 01/12/25 10:10: Urine Color Berna, Urine Clarity Clear, Urine pH 6.0, Ur Specific [place] 1.015, Urine Protein 30 H, Urine Glucose [...] uncomplicated fat containing umbilical hernia. [facility] & Plan Assessment/Plan (1) Jaundice: [...] Henry MD Charges/Coding Visit Charges Inpatient E&M: 10758 Init Hosp L1 01/12/25 1338 <Electronically signed by Matilde Henry MD> Cosigner Signature (if applicable): CC: Dr. Belle Monk MD; Dr. Matilde Henry MD~ Signed [facility] Work Phone: 1(422) 790-904806-25-2025 Discharge summary Author Jeremy Lockett [facility] Note Date/Time January 12, 2025 1:20 pm [facility] Medical Records Department [address] [place] [address] Emergency Department Summary 01/12/25 MR#: [id number] Acct: [id number] Name: ERICK GAUTAM Rep #:[id number] : 1955 69 From: Jeremy Lockett [...] well as quintin colored stools and jaundice. [facility] Medical History Umbilical hernia Gallbladder problem Nausea [...] 72.7 H Lymph % (Auto) 15.7 L Spencer % (Auto) 9.7 Eos % (Auto) 1.2 [...] Clarity Clear Urine pH 6.0 Ur Specific [place] 1.015 Urine Protein 30 H Urine Glucose [...] fat containing umbilical hernia. Reading Location: [facility] Management Discussion w/another healthcare provider: Hospitalist and Data Management Analyst Discharge Plan Dx/Rx/DC Orders Clinical Impression: Jaundice, RUQ pain, Dilated bile duct, Dilated pancreatic duct Disposition Disposition: Acute Care Hospital [facility] What to do if you have Problems For any increased pain, shortness of breath, bleeding, nausea or vomiting, chestpain, or any unexpected problems, contact your Primary Care Provider. Call [facility] ([phone]) or report to the closest Emergency Room. Call 911 if necessary. 01/12/25 1320 <Electronically signed by Jeremy Lockett MD> Cosigner Signature (if applicable): CC: Dr. Belle Monk MD ~ Signed [facility] Work Phone: 1(512) 476-110706-25-2025 Discharge summary Author Jeremy Lockett [facility] Note Date/Time January 12, 2025 1:20 pm [facility] Medical Records Department [address] [place] [address] Emergency Department Summary 01/12/25 MR#: [id number] Acct: [id number] Name: ERICK GAUTAM Rep #:[id number] : 1955 69 From: Jeremy Lockett [...] well as quintin colored stools and jaundice. [facility] Medical History Umbilical hernia Gallbladder problem Nausea [...] 72.7 H Lymph % (Auto) 15.7 L Spencer % (Auto) 9.7 Eos % (Auto) 1.2 [...] Clarity Clear Urine pH 6.0 Ur Specific [place] 1.015 Urine Protein 30 H Urine Glucose [...] fat containing umbilical hernia. Reading Location: [facility] Management Discussion w/another healthcare provider: Hospitalist and Data Management Analyst Discharge Plan Dx/Rx/DC Orders Clinical Impression: Jaundice, RUQ pain, Dilated bile duct, Dilated pancreatic duct Disposition Disposition: Acute Care Hospital [facility] What to do if you have Problems For any increased pain, shortness of breath, bleeding, nausea or vomiting, chestpain, or any unexpected problems, contact your Primary Care Provider. Call [facility] ([phone]) or report to the closest Emergency Room. Call 911 if necessary. 01/12/25 1320 <Electronically signed by Jeremy Lockett MD> Cosigner Signature (if applicable): CC: Dr. Belle Monk MD ~ Signed [facility] Work Phone: 1(564) 119-201206-25-2025 History and physical note [facility] Medical Records Department [address] [place] [address] H&P Exam - Hospitalist 01/12/25 1336 MR#: [id number] Acct: [id number] Name: ERICK GAUTAM Rep #:[id number] : 1955 69 From: Matilde Henry MD PCP: Dr. Belle Monk MD Status:REG ER Location: ED HPI - General General Date of Admission: 01/12/25 Date of Service: 01/12/25 Chief Complaint: RUQ pain, jaundice HPI Narrative ERICK GAUTAM, is a 69-year-old male with history of diabetes recently switched from Januvia to metformin who presented to [facility] ED 01/12/2025 with 2-1/2 weeks of jaundice and rightupper quadrant pain. He has been worked up [...] common bile duct dilation of 2.5 cm andpancreatic duct dilated at 0.6 cm. Gallbladder distended [...] appetite and occasional nausea. No fevers or chills,no other new or acute complaints. [facility] Medical History (Updated 01/12/25 @ 13:37 by [...] (Auto) 72.7 H, Lymph % (Auto) 15.7 L,Spencer % (Auto) 9.7, Eos % (Auto) 1.2, Baso % (Auto) 0.2, Absolute Neuts (auto) 2.9, Absolute Lymphs (auto) 0.63 L, Nucleated RBC % 0, Sodium 133, Potassium 4.0, Chloride 97 L, Carbon Dioxide 23.0, Anion Gap 13, BUN 22 H, Creatinine 0.81, Estim Creat Clear Calc 91.67, Est GFR (MDRD) Non-Af 96, BUN/Creatinine Ratio 27.8 H, Glucose 374 H, Calcium 9.2, Total Ecfwbwpzt30.50 H, AST 51 H, ZRB871 H, Alkaline Phosphatase 292 H, Total Protein 6.8, Albumin 3.9, Globulin 2.9,Albumin/Globulin Ratio 1.3, Lipase 28 01/12/25 10:10: Urine Color Berna, Urine Clarity Clear, Urine pH 6.0, Ur Specific [place] 1.015, Urine Protein 30 H, Urine Glucose (UA) 1000 H, Urine Ketones 5 H, Urine Occult Blood 250 H, Urine Nitrite Negative, Urine Bilirubin 3H, Urine Urobilinogen 4 H, Ur Leukocyte Esterase 25 H, Urine RBC 5-10SEEN, Urine WBC 0 SEEN, Ur Squamous Epith [...] body, 0.5 cm in the distal body, and0.5 cm in the tail. The gallbladder is [...] fat containing umbilical hernia. Reading Location: [facility] Assessment & Plan Assessment/Plan (1) Jaundice: (2) [...] and recommended hospitalist admission and he will seein consult for further workup and management -Will keep n.p.o. for now while GI determining further workup - GI consult - Avoid hepatotoxic agents - Daily CMP #Type 2 diabetes mellitus -Glucose checks and sliding scale insulin -Hold home oral hypoglycemics #DVT ppx: SCDs in the event patient needs intervention Matilde Henry MD Charges/Coding Visit Charges Inpatient E&M: 13779 Init Hosp L1 01/12/25 1338 Cosigner Signature (if applicable): CC: Dr. Belle Monk MD; Dr. Matilde Henry MD~ Signed [facility]06-25-2025 Discharge summary [facility] Medical Records Department [address] [place] [address] Emergency Department Summary 01/12/25 MR#: [id number] Acct: [id number] Name: ERICK GAUTAM Rep #:[id number] : 1955 69 From: Jeremy Lockett MD PCP: Dr. Belle Monk MD Status:REG ER Location: ED HPI HPI - GI History of Present Illness Chief Complaint: Abd Pain Narrative Narrative: 69-year-old male past medical history of diabetes recently switched to Januvia from metformin presents with 2-1/2 weeks of jaundice and right upper quadrant pain. He is nauseated but has not vomited.No fevers or chills. He states hissymptoms began approximately 2-1/2 weeks ago. Last week he went to his primary care provider and had an ultrasound performed. He went to Dr. Stauffer the surgeon today for referral for gallbladder surgery. In discussion with Dr. Stauffer, he was sent in for CT imaging and repeat laboratory work. Patient did have reportedly an ultrasound which showed no stonesin the gallbladder but it was distended as well as some of the bile ducts. Patient reports continued nausea and decreased appetite as well as quintin colored stools and jaundice. PFSH PFS Medical History Umbilical hernia Gallbladder problem Nausea [...] labs, and he did have elevated bilirubin of6. Today's laboratory work was reviewed and he is slightly neutropenic at 4.0 with hemoglobin normal at 13.9, platelet count 239. Chloride slightly low at 97 with normal sodium of 133, BUN of 22 and creatinine 0.81. Glucose elevated at 374 consistent with hisdiabetes but anion gap normal at 13 so Idoubt diabetic ketoacidosis. He has elevated LFTs with an AST of 51 and ALT of 112, alk phos 292, total bili 12.5. Lipase 28. Urinalysis negative for infection with 0 WBCs but he does have elevated bi lirubin as well. I reviewed the radiology report [...] body, 0.5 cm in the distal body, and0.5 cm in the tail. The gallbladder is [...] 72.7 H Lymph % (Auto) 15.7 L Spencer % (Auto) 9.7 Eos % (Auto) 1.2 [...] Clarity Clear Urine pH 6.0 Ur Specific [place] 1.015 Urine Protein 30 H Urine Glucose [...] body, 0.5 cm in the distal body, and0.5 cm in the tail. The gallbladder is [...] fat containing umbilical hernia. Reading Location: [facility] Management Discussion w/another healthcare provider: Hospitalist and Data Management Analyst Discharge Plan Dx/Rx/DC Orders Clinical Impression: Jaundice, RUQ pain, Dilated bile duct, Dilated pancreatic duct Disposition Disposition: Acute Care Hospital [facility] What to do if you have Problems For any increased pain, shortness of breath, bleeding, nausea or vomiting, chestpain, or any unexpected problems, contact your Primary Care Provider. Call [facility] ([phone]) or report tothe closest Emergency Room. Call 911 if necessary. 01/12/25 1320 Cosigner Signature (if applicable): CC: Dr. Belle Monk MD ~ Signed [facility]06-25-2025 Radiology Diagnostic study note [facility] Imaging Services [address] [place] [address] Abdomen/Pelvis W IV Cont ONLY MR#: [id number] Acct: [id number] Name: ERICK GAUTAM Rep #: [id number] : 1955 M 69 From: Judah De Leon MD PCP: Dr. Belle Monk MD Status: REG ER Study:Abdomen/Pelvis W IV Cont ONLY Date of E xam: 01/12/25 Exam# [id number] Ordering Dr: Jeremy Lockett MD PROCEDURE: ABDOMEN/PELVIS [...] body, 0.5 cm in the distal body, and0.5 cm in the tail. The gallbladder is [...] Lockett MD; Dr. Belle Monk MD ~ Nurse Consultant: Signed [facility]06-25-2025 Evaluation note* Diagnosis Onset Date Resolution Status Admit Date Gallbladder problem acute January 12, 2025 8:39am RUQ pain acute January 12 8:39am Diabetes mellitus, type 2 acute January 12, 2025 1:33pm Dilated bile duct acute January 122024 1:33pm Dilated pancreatic duct acute 2024 1:33pm Jaundice acute January 12 1:33pm RUQ pain acute January 12 1:33pm [facility] Work Phone: 1(276) 725-503306-25-2025 Evaluation note* Diagnosis Onset Date Resolution Status Admit Date Gallbladder problem acute January 12, 2025 8:39am RUQ pain inactive January 12 8:39am Diabetes mellitus, type 2 inactive January 12, 2025 1:33pm Dilated bile duct inactive January 122024 1:33pm Dilated pancreatic duct inactive J 2024 1:33pm Jaundice inactive January 12 1:33pm RUQ pain inactive January 12 1:33pm [employer] Work Phone: 1(329) 226-483406-25-2025 Evaluation note* Diagnosis Onset Date Resolution Status Admit Date Gallbladder problem acute January 12, 2025 8:39am RUQ pain inactive January 12 8:39am Diabetes mellitus, type 2 acute January 12, 2025 1:33pm Dilated bile duct inactive January 122024 1:33pm Dilated pancreatic duct inactive J une 2024 1:33pm Jaundice inactive January 12 1:33pm RUQ pain inactive January 12 1:33pm Common bile duct (CBD) stricture acute January 20, 2025 9 :39am Obstructive jaundice resolved January 20, 2025 9:39am Pancreas cancer acute February 1:37pm Regional lymph node metastas is present acute February 21, 2025 1:37pm [employer] Work Phone: 1(973) 588-773806-18-2025 Radiology Diagnostic study note [facility] Imaging Services [address] [place], [place] [address] Abdomen Limited MR#: [id number] Acct: [id number] Name: ERICK GAUTAM Rep #: [id number] : 1955 M 69 From: Jaya Quick MD PCP: Dr. Belle Monk MD Status: REG CLI Study:Abdomen Limited Date of Exam: 12/19 03/14 Exam# [id number] Ordering Dr: Casie Monk MD PROCEDURE: ABDOMEN [...] out. Dilated common bile duct. Reading Location: [place] [address] CC: Dr. Belle Monk MD ~ Nurse Consultant: Signed [facility] CenterEvalubeebe healthcare noteNo assessment information available [facility] Work Phone: Evaluation note* Diagnosis Bile duct obstruction Obstruction of bile duct Malignant neoplasm of pancreas, unspecified location of malignancy [facility] Diagnosis Bile duct obstruction- Primary Obstruction of bile duct Malignant neoplasm of pancreas, unspecified location of malignancy [facility] this encounter [facility] Diagnosis Bile duct obstruction- Primary Obstruction of bile duct documented in this encounter [facility] Diagnosis Bile duct obstruction Obstruction of bile duct [facility] Diagnosis Malignant neoplasm of pancreas, unspecified location of malignancy- Primary Encounter for screening for diabetes mellitus Screening for diabetes mellitus Neoplasm of unspecified behavior of unspecified site [facility] this [facility] Author Matilde Henry [facility] Note Date/Time January 12, 2025 1:38 pm [facility] Medical Records Department [address] [place] [address] [place] [address] H&P Exam - Hospitalist 01/12/25 1336 MR#: [id number] Acct: [id number] Name: ERICK GAUTAM Rep #:[id number] : 1955 69 From: Matilde Henry MD PCP: Dr. Belle Monk MD Status:REG ER Location: ED HPI - General General Date of Admission: 01/12/25 Date of Service: 01/12/25 Chief Complaint: RUQ pain, jaundice HPI Narrative ERICK GAUTAM, is a 69-year-old male with history of diabetes recently switched from Januvia to metformin who presented to [facility] ED 01/12/2025 with 2-1/2 weeks of jaundice [...] other new or acute complaints. [facility] Medical History (Updated 01/12/25 @ 13:37 by [...] (Auto) 72.7 H, Lymph % (Auto) 15.7 L,Spencer % (Auto) 9.7, Eos % (Auto) 1.2, [...] Total Bilirubin 12.50 H, AST 51 H, DVC987 H, Alkaline Phosphatase 292 H, Total Protein 6.8, Albumin 3.9, Globulin 2.9,Albumin/Globulin Ratio 1.3, Lipase 28 01/12/25 10:10: Urine Color Berna, Urine Clarity Clear, Urine pH 6.0, Ur Specific [place] 1.015, Urine Protein 30 H, Urine Glucose [...] uncomplicated fat containing umbilical hernia. [facility] Assessment & Plan Assessment/Plan (1) Jaundice: [...] Henry MD Charges/Coding Visit Charges Inpatient E&M: 63651 Init Hosp L1 01/12/25 1338 <Electronically signed by Matilde Henry MD> Cosigner Signature (if applicable): CC: Dr. Belle Monk MD; Dr. Matilde Henry MD~ Signed [facility] Work Phone: Hospital Discharge instructionsAdditional Instructions [facility]: [facility] Phone: Reason for referral (narrative)No reason for referral information availableWThe [facility] Work Phone: Reason for visit Narrative* Endoscopy (Emergency) - New Request Specialty Diagnoses / Procedures Referred By Cruzito caraballo Referred To Contact Diagnoses Bile duct obstruction Procedures ERCP ERCP NC ERCP BILIARY/PANC DUCT STENT EXCHANGE W/DIL&WIRE Reji Berry, [employer] [address] [place] [address] Phone: tel: fax: Referral ID Status Reason Start Date Expiration Date V isits Requested Visits Authorized [id number] New Request 01/27/2025 02/21/2026 1 1 [facility] Chief Complaint and Reason for Visit Chief [...] RUQ pain January 12, 2025 1:33 pm Chief Complaint Admit Date FASTING October 22, 2024 7:28 am RUQ ABD PAIN, VOMITING January 05, 2025 9 :58am RUQ PAIN POSSIBLE GALLBLADDER January 12, 2025 8:39am RIGHT UPPER QUADRANT PAIN & JAUNDICE Celio 2024 1:33pm abd pain January 12, 2025 1:36 pm RIGHT UPPER QUADRANT PAIN & JAUNDICE Celio e 2024 6:21pm RIGHT UPPER QUADRANT PAIN & JAUNDICE Celio e 2024 1:05pm RIGHT UPPER QUADRANT PAIN & JAUNDICE Celio e 2024 4:50pm Chief Complaint Admit Date FASTING October 22, 2024 7:28 am RUQ ABD PAIN, VOMITING January 05, 2025 9 :58am RUQ PAIN POSSIBLE GALLBLADDER January 12, 2025 8:39am RIGHT UPPER QUADRANT PAIN & JAUNDICE Celio e 2024 1:33pm abd pain January 12, 2025 1:36 pm RIGHT UPPER QUADRANT PAIN & JAUNDICE Celio e 2024 6:21pm AM EKG January 13, 2025 5:53 am RIGHT UPPER QUADRANT PAIN & JAUNDICE Celio e 2024 1:05pm RIGHT UPPER QUADRANT PAIN & JAUNDICE Celio e 2024 4:50pm RIGHT UPPER QUADRANT PAIN & JAUNDICE Celio e 2024 10:56am CBD Cancer / Waiting on Path January 20 9:39am Chief Complaint Admit Date RUQ ABD PAIN, VOMITING January 05, 2025 9 :58am RUQ PAIN POSSIBLE GALLBLADDER January 12, 2025 8:39am RIGHT UPPER QUADRANT PAIN & JAUNDICE Celio e 2024 1:33pm abd pain January 12, 2025 1:36 pm RIGHT UPPER QUADRANT PAIN & JAUNDICE Celio e 2024 6:21pm AM EKG January 13, 2025 5:53 am RIGHT UPPER QUADRANT PAIN & JAUNDICE Celio e 2024 1:05pm RIGHT UPPER QUADRANT PAIN & JAUNDICE Celio e 2024 4:50pm RIGHT UPPER QUADRANT PAIN & JAUNDICE Celio e 2024 10:56am CBD Cancer / Waiting on Path January 20 025 9:39am F/U FROM [facility] REC[facility]DS PRINTED February 212024 1:37pm Reason for Visit Admit Date Gallbladder problem January 12, 2025 8:39 am RUQ pain January 12, 2025 8:39 am Diabetes mellitus, type 2 January 12 1:33pm Dilated bile duct January 12, 2025 1:33 pm Dilated pancreatic duct January 12, 2025 1:33pm Jaundice January 12, 2025 1:33 pm RUQ pain January 12, 2025 1:33 pm Common bile duct (CBD) stricture January 9:39am Obstructive jaundice January 20, 2025 9:39 am Pancreas cancer February 21, 2025 1:3 7pm Regional lymph node metastasis present A ugust 2024 1:37pm Advance Directives Advance Directive Response Recorded Date/ Time Living Will No July 20 4:44pm Do you have a Healthcare Power of Oil Field Equipment Mechanic? No July 20, 2024 4:44pm Advance Directive Response Recorded Date/ Time Do you have a Healthcare Power of Oil Field Equipment Mechanic? No January 12, 2025 9:55am Advance Directive Response Recorded Date/ Time Do you have a Healthcare Power of Oil Field Equipment Mechanic? Yes January 12, 2025 3:00pm Family History Relationship Condition Age at Onset Recorded Date/T sage uncle Diabetes mellitus Unknown Malignant neoplasm Unknown sister Diabetes mellitus Unknown father Malignant neoplasm Unknown Summary Purpose Additional Source Comments Care Teams (unrecognized sec [...] 12, 2025 End: January 12, 2025 Dr. Belel Monk MD Referring Provider Active Start: January [...] January 12, 2025 Team Status: Active Member Role/Relationship Status Dates Dr. Belle Monk MD Primary Care Provider Active Team Status: Inactive Member Role/Relationship Status Dates Dr. Belle Monk MD Primary Care Provider Active Start: October 22, 2024 End: October 22, 2024 Dr. Belle Monk MD Attending Provider Active Start: October 22, 2024 End: October 22, 2024 Dr. Belle Monk MD Referring Provider Active Start: October 22, 2024 End: October 22, 2024 Team Status: Inactive Member Role/Relationship Status Dates Dr. Belle Monk MD Primary Care Provider Active Start: January 04, 2025 End: January 04, 2025 Dr. Belle Monk MD Attending Provider Active Start: January 04, 2025 End: January 04, 2025 Team Status: Inactive Member Role/Relationship Status Dates Dr. Belle Monk MD Primary Care Provider Active Start: January 05, 2025 End: January 05, 2025 Dr. Belle Monk MD Attending Provider Active Start: January 05, 2025 End: January 05, 2025 Dr. Belle Monk MD Referring Provider Active Start: January 05, 2025 End: January 05, 2025 Team Status: Inactive Member Role/Relationship Status Dates Dr. Belle Monk MD Primary Care Provider Active Start: January 12, 2025 End: January 12, 2025 Dr. Belle Monk MD Referring Provider Active Start: January 12, 2025 End: January 12, 2025 Dr. Freeman Stauffer MD Attending Provider Active Start: January 12, 2025 End: January 12, 2025 Team Status: Inactive Member Role/Relationship Status Dates Dr. Belle Monk MD Primary Care Provider Active Start: January 12, 2025 End: January 14, 2025 Jeremy Lockett MD Emergency Provider Active Star t: January 12, 2025 End: January 14, 2025 Dr. Matilde Henry MD Admit Provider Active Star t: January 12, 2025 End: January 14, 2025 Dr. Matilde Henry MD Other Provider Active Star t: January 12, 2025 End: January 14, 2025 Dr. Elin Benites DO Attending Provider Active Start: January 12, 2025 End: January 14, 2025 Team Status: Active Member Role/Relationship Status Dates Dr. Belle Monk MD Primary Care Provider Active Start: January 12, 2025 Jeremy Lockett MD Emergency Provider Active Star t: January 12, 2025 Dr. Matilde Henry MD Attending Provider Active Start: January 12, 2025 Team Status: Active Member Role/Relationship Status Dates Dr. Belle Monk MD Primary Care Provider Active Start: January 12, 2025 Jeremy Lockett MD Emergency Provider Active Star t: January 12, 2025 Dr. Matilde Henry MD Admit Provider Active Star t: January 12, 2025 Dr. Matilde Henry MD Other Provider Active Star t: January 12, 2025 Dr. Trevon Webber DO Attending Provider Active Start: January 12, 2025 Team Status: Active Member Role/Relationship Status Dates Dr. Belle Monk MD Primary Care Provider Active Start: January 13, 2025 Jeremy Lockett MD Emergency Provider Active Star t: January 13, 2025 Dr. Matilde Henry MD Admit Provider Active Star t: January 13, 2025 Dr. Matilde Henry MD Other Provider Active Star t: January 13, 2025 Dr. Elin Benites DO Other Provider Active S tart: January 13, 2025 Dr. Trevon Webber DO Attending Provider Active Start: January 13, 2025 Team Status: Active Member Role/Relationship Status Dates Dr. Belle Monk MD Primary Care Provider Active Start: January 13, 2025 Jeremy Lockett MD Emergency Provider Active Star t: January 13, 2025 Dr. Matilde Henry MD Admit Provider Active Star t: January 13, 2025 Dr. Matilde Henry MD Other Provider Active Star t: January 13, 2025 Dr. Elin Benites DO Attending Provider Active Start: January 13, 2025 Dr. Elin Benites DO Other Provider Active S tart: January 13, 2025 Team Status: Active Member Role/Relationship Status Dates Dr. Belle Monk MD Primary Care Provider Active Start: January 13, 2025 End: January 13, 2025 Dr. Ellen De La Garza MD Attending Provider Active Start: January 13, 2025 End: January 13, 2025 Dr. Matilde Henry MD Referring Provider Active Start: January 13, 2025 End: January 13, 2025 Team Status: Active Member Role/Relationship Status Dates Dr. Belle Monk MD Primary Care Provider Active Start: January 13, 2025 Jeremy Lockett MD Emergency Provider Active Star t: January 13, 2025 Dr. Matilde Henry MD Admit Provider Active Star t: January 13, 2025 Dr. Matilde Henry MD Other Provider Active Star t: January 13, 2025 Dr. Elin Benites DO Other Provider Active S tart: January 13, 2025 Dr. Trevon Webber DO Attending Provider Active Start: January 13, 2025 Team Status: Active Member Role/Relationship Status Dates Dr. Belle Monk MD Primary Care Provider Active Start: January 13, 2025 Jeremy Lockett MD Emergency Provider Active Star t: January 13, 2025 Dr. Matilde Henry MD Admit Provider Active Star t: January 13, 2025 Dr. Matilde Henry MD Other Provider Active Star t: January 13, 2025 Dr. Elin Benites DO Attending Provider Active Start: January 13, 2025 Dr. Elin Benites DO Other Provider Active S tart: January 13, 2025 Team Status: Active Member Role/Relationship Status Dates Dr. Belle Monk MD Primary Care Provider Active Start: January 14, 2025 Jeremy Lockett MD Emergency Provider Active Star t: January 14, 2025 Dr. Matilde Henry MD Admit Provider Active Star t: January 14, 2025 Dr. Matilde Henry MD Other Provider Active Star t: January 14, 2025 Dr. Elin Benites DO Attending Provider Active Start: January 14, 2025 Dr. Elin Benites DO Other Provider Active S tart: January 14, 2025 Team Status: Inactive Member Role/Relationship Status Dates Dr. Belle Monk MD Primary Care Provider Active Start: January 20, 2025 End: January 20, 2025 Dr. Petra Sawyer MD Attending Provider Active Start: January 20, 2025 End: January 20, 2025 Dr. Elin Benites DO Referring Provider Active Start: January 20, 2025 End: January 20, 2025 Team Status: Active Member Role/Relationship Status Dates Dr. Belle Monk MD Primary Care Provider Active Start: January 20, 2025 Dr. Petra Sawyer MD Attending Provider Active Start: January 20, 2025 Dr. Petra Sawyer MD Referring Provider Active Start: January 20, 2025 Wash Helper Relationship Specialty Start Date End Date Belle Monk MD [address] [place] [phone] PCP - General Family Medicine 01/24/25 Petra Sawyer MB [facility] [address] [place], [place] [id number] [phone] Referring Provider Medical Oncology 01/24/25 Kathy Hickman, RN Registered Nurse 01/24/25 Wash Helper Relationship Specialty Start Date End Date Belle Monk MD [address] [place] [phone] PCP - General Family Medicine 01/24/25 Petra Sawyer MB [facility] [address], [place] [phone] Referring Provider Medical Oncology 01/24/25 Kathy Hickman, RN Registered Nurse 01/24/25 Wash Helper Relationship Specialty Start Date End Date Belle Monk MD [address] [place] [address] PCP - General Family Medicine 01/24/25 Petra Sawyer MB [facility] [address], [place] [phone] Referring Provider Medical Oncology 01/24/25 Kathy Hickman, RN Registered Nurse 01/24/25 Wash Helper Relationship Specialty Start Date End Date Belle Monk MD [address] [place] [address] PCP - General Family Medicine 01/24/25 Petra Sawyer MB [facility] [address] [place], [place] [id number] [phone] Referring Provider Medical Oncology 01/24/25 Kathy Hickman, RN Registered Nurse 01/24/25 Wash Helper Relationship Specialty Start Date End Date Belle Monk MD [address] [place] [phone] PCP - General Family Medicine 01/24/25 Petra Sawyer MB [facility] [address], [place] [phone] Referring Provider Medical Oncology 01/24/25 Kathy Hickman, AKIL Registered Nurse 01/24/25 Wash Helper Relationship Specialty Start Date End Date Belle Monk MD [address] [phone] PCP - General Family Medicine 01/24/25 Petra Sawyer MB [facility] [address], [place] [phone] Referring Provider Medical Oncology 01/24/25 Kathy Hickman, RN Registered Nurse 01/24/25 Team Status: Inactive Member Role/Relationship Status Dates Dr. Belle Monk MD Primary Care Provider Active Start: January 04, 2025 End: January 04, 2025 Dr. Belle Monk MD Attending Provider Active Start: January 04, 2025 End: January 04, 2025 Team Status: Inactive Member Role/Relationship Status Dates Dr. Belle Monk MD Primary Care Provider Active Start: January 05, 2025 End: January 05, 2025 Dr. Belle Monk MD Attending Provider Active Start: January 05, 2025 End: January 05, 2025 Dr. Belle Monk MD Referring Provider Active Start: January 05, 2025 End: January 05, 2025 Team Status: Inactive Member Role/Relationship Status Dates Dr. Belle Monk MD Primary Care Provider Active Start: January 12, 2025 End: January 12, 2025 Dr. Belle Monk MD Referring Provider Active Start: January 12, 2025 End: January 12, 2025 Dr. Freeman Stauffer MD Attending Provider Active Start: January 12, 2025 End: January 12, 2025 Team Status: Inactive Member Role/Relationship Status Dates Dr. Belle Monk MD Primary Care Provider Active Start: January 12, 2025 End: January 14, 2025 Jeremy Lockett MD Emergency Provider Active Star t: January 12, 2025 End: January 14, 2025 Dr. Matilde Henry MD Admit Provider Active Star t: January 12, 2025 End: January 14, 2025 Dr. Matilde Henry MD Other Provider Active Star t: January 12, 2025 End: January 14, 2025 Dr. Elin Benites DO Attending Provider Active Start: January 12, 2025 End: January 14, 2025 Team Status: Active Member Role/Relationship Status Dates Dr. Belle Monk MD Primary Care Provider Active Start: January 12, 2025 Jeremy Lockett MD Emergency Provider Active Star t: January 12, 2025 Dr. Matilde Henry MD Attending Provider Active Start: January 12, 2025 Team Status: Active Member Role/Relationship Status Dates Dr. Belle Monk MD Primary Care Provider Active Start: January 12, 2025 Jeremy Lockett MD Emergency Provider Active Star t: January 12, 2025 Dr. Matilde Henry MD Admit Provider Active Star t: January 12, 2025 Dr. Matilde Henry MD Other Provider Active Star t: January 12, 2025 Dr. Trevon Webber DO Attending Provider Active Start: January 12, 2025 Dr. Elin Benites DO Referring Provider Active Start: January 12, 2025 Team Status: Active Member Role/Relationship Status Dates Dr. Belle Monk MD Primary Care Provider Active Start: January 13, 2025 End: January 13, 2025 Dr. Ellen De La Garza MD Attending Provider Active Start: January 13, 2025 End: January 13, 2025 Dr. Matilde Henry MD Referring Provider Active Start: January 13, 2025 End: January 13, 2025 Team Status: Active Member Role/Relationship Status Dates Dr. Belle Monk MD Primary Care Provider Active Start: January 13, 2025 Jeremy Lockett MD Emergency Provider Active Star t: January 13, 2025 Dr. Matilde Henry MD Admit Provider Active Star t: January 13, 2025 Dr. Matilde Henry MD Other Provider Active Star t: January 13, 2025 Dr. Elin Benites DO Referring Provider Active Start: January 13, 2025 Dr. Elin Benites DO Other Provider Active S tart: January 13, 2025 Dr. Trevon Webber DO Attending Provider Active Start: January 13, 2025 Team Status: Active Member Role/Relationship Status Dates Dr. Belle Monk MD Primary Care Provider Active Start: January 14, 2025 Jeremy Lockett MD Emergency Provider Active Star t: January 14, 2025 Dr. Matilde Henry MD Admit Provider Active Star t: January 14, 2025 Dr. Matilde Henry MD Other Provider Active Star t: January 14, 2025 Dr. Elin Benites DO Attending Provider Active Start: January 14, 2025 Dr. Elin Benites DO Other Provider Active S tart: January 14, 2025 Team Status: Inactive Member Role/Relationship Status Dates Dr. Belle Monk MD Primary Care Provider Active Start: January 20, 2025 End: January 20, 2025 Dr. Petra Sawyer MD Attending Provider Active Start: January 20, 2025 End: January 20, 2025 Dr. Elin Benites DO Referring Provider Active Start: January 20, 2025 End: January 20, 2025 Team Status: Inactive Member Role/Relationship Status Dates Dr. Belle Monk MD Primary Care Provider Active Start: February 21, 2025 End: February 21, 2025 Dr. Belle Monk MD Referring Provider Active Start: February 21, 2025 End: February 21, 2025 Dr. Petra Sawyer MD Attending Provider Active Start: February 21, 2025 End: February 21, 2025 Team Status: Active Member Role/Relationship Status Dates Dr. Belle Monk MD Primary Care Provider Active Start: February 21, 2025 Dr. Petra Sawyer MD Attending Provider Active Start: February 21, 2025 Dr. Petra Sawyer MD Referring Provider Active Start: February 21, 2025 Goals (unrecognized section and content) Goals may be documented in a n alternate sectionGoals may be documented in an alternate sectionGoals may be documented in an alternate sectionGoals may be documented in an alternate sectionGoals may be documented in an alternate section Reason for Visit (unrecogniz ed section and content) Reason Comments Labs Only Reason Comments Follow-up Specialty Diagnoses / Procedures Referred By Cruzito caraballo Referred To Contact Surgical Oncology Diagnoses Obstruction of bile duct Petra Sawyer MB [facility] [address] [place] [address] Phone: tel: fax: Baldomero Alejo MD [address] [place] [address] Phone: tel: fax: Referral ID Status Reason Start Date Expiration Date Visits Requested Visits Authorized [id number] New Request Surgical Evaluation 01/24/2025 02/18/2026 1 1 Reason Comments Nutrition Consultation Specialty Diagnoses / Procedures Referred By Cruzito caraballo Referred To Contact Nutrition and Dietetics Diagnoses Bile duct obstruction Reji Berry, [employer] [address] [address] Phone: tel: fax: Berna Perry, RD [address] [place] [address] Phone: tel: fax: Referral ID Status Reason Start Date Expiration Date V isits Requested Visits Authorized [id number] New Request 01/27/2025 02/21/2026 1 1 Reason Onset Date Comments Appointment 02/10/2025 (unrecognized sect ion and content) No Status Records FoundNo Status Records Found INFORMATION SOURCE (unrecogn ized section and content) DATE CREATED AUTHOR [facility] DATE CREATED AUTHOR AUTHOR'S ORGANIZ ATION 02/21/2025 [facility] FOR RECORDS PERTAINING TO PATIENTS WHO ARE [...] BE BASED ON THE PRIMARY CLINICAL RECORDS. [employer] [facility]. provides no warranty or guarantee of the accuracy or completeness of information in this document.
== END | disposition home or self-care (01) ==
LOC: NM 08:59
PROVIDERS: PCP Family Medicine; Referring Provider Internal Medicine Hematology & Oncology; Visit Provider Internal Medicine Hematology & Oncology
DX: C25.9 Malignant neoplasm of pancreas, unspecified (principal); C77.9 Secondary and unspecified malignant neoplasm of lymph node, unspecified
CPT/HCPCS: 78306; A9503

== ENCOUNTER 2025-03-03 11:54 | Day surgery (SDC) | payer MEDICARE, OTHER, SELFPAY ==
--- NOTE | 2025-02-24 10:14 | PAT.ANESEVAL ---
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 When Was Last Pacemaker Check QUESTION #4 FULL TEXT: You/Your Family Experience fever (hyperthermia) with Anesthesia Last Oral Intake Last Oral intake: Last Oral Intake NPO since Meds taken in AM with sips of water? Meds patient instructed to take am of surgery PONV PONV - batch records clerk: PONV - batch records clerk Female No 02/24/25 08:15 HX of Motion Sickness Yes 02/24/25 08:15 HX of N/V After Surgery Yes 02/24/25 08:15 Non-Smoker Yes 02/24/25 08:15 Duration of Surgery greater No 02/24/25 08:15 than 60 minutes Number of Risk Factors 3 02/24/25 08:15 PONV Score Moderate Risk 02/24/25 08:15 Height & Weight Height & Weight: Anesthesia: Height & Weight Height 5 ft 11 in 02/21/25 13:42 Respiratory Assessment Respiratory Assessment - batch records clerk: Respiratory Tract Infection Hx - batch records clerk Hx Respiratory Tract Infection No 02/24/25 08:15 STOP Sleep Apnea STOP Sleep Apnea - batch records clerk: STOP Sleep Apnea - batch records clerk Hx Hypertension No 02/24/25 08:15 Hx Sleep Apnea No 02/24/25 08:15 CPAP BIPAP Do you snore loudly (louder No 02/24/25 08:15 than talking or can be heard Do you often feel tired/ No 02/24/25 08:15 fatigued/ sleepy during daytime? Has anyone observed you stop No 02/24/25 08:15 breathing during sleep? STOP Results Negative 02/24/25 08:15 QUESTION #5 FULL TEXT : Do you snore loudly (louder than talking or can be heard through closed doors)? 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 Specify any problems Hx of Preganancy in last 3 N/A 02/24/25 08:15 Months Nurse Filling Out Transfusion JZOLLALIDA 02/24/25 08:15 & Questions: Date: 02/24/25 02/24/25 08:15 Time: 08:18 02/24/25 08:15 Patient unable to answer at this time (ie. confused, unrespo /Reproduction History /Reproductive History - batch records clerk: /Reproductive Hx- batch records clerk Hx Now No 02/24/25 08:15 Gestational Age (in weeks): EDC: Hx Hx Para Hx Section SAB No 02/24/25 08:15 [facility] Medical History (Updated 02/24/25 @ 08:15 by Nelia Rios) Wears glasses Arthritis Dietary restriction Non-smoker Regional lymph node metastasis present Pancreas cancer Diabetes mellitus, type 2 Dilated pancreatic duct Dilated bile duct Jaundice Umbilical hernia Gallbladder problem Nausea RUQ pain Cataract Home Medications ?Medication ?Instructions ?Recorded ?Last Taken ?Type metformin 500 mg tablet 500 mg PO BID 01/20/25 Unknown History insulin glargine-yfgn 100 unit/mL 18 unit subcut QHS 02/21/25 Unknown History (3 mL) subcutaneous pen pstaro-efxtxbty-qppijvs 2 cap PO QAC 02/21/25 Unknown History 12,000-38,000-60,000 unit capsule,delayed rel (Creon) sitagliptin phosphate 50 mg tablet 50 mg PO QDAY 02/21/25 Unknown History (Januvia) Allergy/AdvReac Type Severity Reaction Status Date / Time No Known Allergies Allergy Verified 02/24/25 08:07 Family History Uncle Diabetes Cancer Sister Diabetes Father Cancer Surgical History H/O arthroscopy of right knee H/O right inguinal hernia repair History of appendectomy Social History household members: spouse Smoking Status: Never smoker alcohol intake: never substance use type: does not use Audit: Pertinent Findings Pertinent Findings EKG Perinent findings: Normal sinus rhythm Normal ECG When compared with ECG of 20-Jul-2024 16:17, No significant change was found Confirmed by RASHAWN HERRERA, FÉLIX ([id number]), editorial manager APARNA RODRÍGUEZ ([id number]) on 01/14/2025 8:38:56 AM Additional pertinent findings: BG 395, please optimize prior to surgery Recommendation Anesthesia Recommendation Anesthesia recommendation: OPTIMIZED for anesthesia (BG 395, please optimize prior to surgery)
[2025-03-03] VITALS (8 sets, daily range): BP systolic 112–136; BP diastolic 69–87; PULSE 70–77; RESP 14–18; TEMP 36–37; O2SAT 96–100; BMI 25.5
--- NOTE | 2025-03-03 12:22 | PCM.HP.BLA ---
History and Physical Date of Admission: 03/03/25 Intake Vital Signs 02/21/2513:42 02/25/2512:05 02/24/2513:37 Height 5 ft 11 in 5 ft 11 in 5 ft 11 in Weight: 180 lb 182 lb 2 oz BMI 25.1 25.4 BP 116/69 135/75 H Blood Pressure Location Lt brachial Rt brachial Position Sitting Sitting Respiration 18 18 Pulse 86 85 Pulse Source Monitor Monitor Temp 98.7 F 97.8 F Temp Source Temporal Pulse Oximetry (%) 99 99 Oxygen Delivery Method room air room air Intake Visit Reasons: PORT PLACEMENT Chief Complaint: port placement Accompanied by: Is patient in pain?: No Allergies No Known Allergies Allergy (Verified 02/24/25 12:06) Medications ?Medication ?Instructions ?Recorded ?Confirmed ?Type metformin 500 mg tablet 500 mg PO BID 01/20/25 02/24/25 History insulin glargine-yfgn 100 unit/mL 18 unit subcut QHS 02/21/25 02/24/25 History (3 mL) subcutaneous pen pddvgw-mhtzflqx-qkmdzwa 2 cap PO QAC 02/21/25 02/24/25 History 12,000-38,000-60,000 unit capsule,delayed rel (Creon) sitagliptin phosphate 50 mg tablet 50 mg PO QDAY 02/21/25 02/24/25 History (Januvia) lidocaine-prilocaine 2.5 %-2.5 % 1 applic topical ONCE PRN port 02/24/25 02/24/25 Rx topical cream access 30 days #30 grams ondansetron 8 mg disintegrating 8 mg PO Q8H PRN nausea and 02/24/25 02/24/25 Rx tablet vomiting #30 tabs prochlorperazine maleate 10 mg 10 mg PO Q6H PRN nausea and 02/24/25 02/24/25 Rx tablet vomiting #30 tabs Have you fallen in the past year?: No PFSH Medical History Encounter for education Wears glasses Arthritis Dietary restriction Non-smoker Regional lymph node metastasis present Pancreas cancer Diabetes mellitus, type 2 Dilated pancreatic duct Dilated bile duct Jaundice Umbilical hernia Gallbladder problem Nausea RUQ pain Cataract Surgical History H/O arthroscopy of right knee H/O right inguinal hernia repair History of appendectomy Family History Uncle Diabetes CancerSister DiabetesFather Cancer Social History household members: spouse Smoking Status: Never smoker alcohol intake: never substance use type: does not use HPI HPI HPI: Patient is a 69-year-old male here with pancreatic cancer and need for port ROS General General: Yes weight change and fatigue; No appetite, colon cancer, breast cancer or weakness HEENT HEENT: No difficulty swallowing, eye injury, eye surgery, swollen glands or hoarseness Endo Endocrine: Yes diabetes mellitus; No thyroid disease, thyroid cancer, Hair loss, heat intolerance or cold intolerance Skin Skin: No rash or changing moles Musc Musculoskeletal: No back problems, arthritis, rheumatoid arthritis, gout or joint pain Cardio Cardiovascular: No murmur, pacemaker, heart disease, atrial fibrillation, high blood pressure, heart attack, heart stent, palpitations, shortness of breath with exertion or chest pain Psych Psychiatric: No depression, anxiety or hearing voices Resp Respiratory: No shortness of breath, No sleep apnea, No cough, No COPD, No asthma, No emphysema and No wheezing Gastro Gastrointestinal: Yes abdominal pain, No nausea or vomiting, No diarrhea, No constipation, No blood in stool, No acid reflux, No hemorrhoids, No ulcers, No gallbladder problem and No black,tarry stools Christiano Hematologic: No blood thinners, No blood disorders, No bleeding, No anemia and No blood clots Neuro Neurologic: No numbness, No tingling and No weakness Exam Const General: cooperative Orientation: alert and oriented x3 HENMT Head: normal to inspection Neck Neck: normal visual inspection and full ROM Chest Chest palpation & inspection: normal inspection of the chest Resp Effort & Inspection: normal respiratory effort Auscultation: clear to auscultation bilaterally Cardio Rate: regular rate Rhythm: regular rhythm GI Inspection: non-distended Palpation: soft and nontender Skin General: no rashes or lesions noted Neuro General: patient alert and patient oriented x3 Extrem General: full ROM Psych Appearance: grossly normal Mental Status: mental status grossly normal Assessment and Plan Assessment and Plan (1) Pancreas cancer: Status: Acute Qualifiers: Pancreatic malignancy location: head of pancreas Qualified Code(s): C25.0 - Malignant neoplasm of head of pancreas (2) Encounter for insertion of venous access port: Status: Acute Plan I discussed right chest port placement with the patient in detail. I discussed the risks including but not limited to bleeding, infection, line infection, DVT, pneumothorax. Patient understands all the risks and is willing to proceed. All the patient's questions were answered. He will hold his Januvia. Freeman Stauffer MD Pager: [facility] [address] [place] [address], [address] [place] [address] Office: I have examined the patient and the H&P has been reviewed. There are no clinical changes since date of exam.
[2025-03-03] MEDS: Lactated Ringers 1,000 ML 15 ML IV (12:39)
--- NOTE | 2025-03-03 12:56 | PCM.PRE.AN2 ---
ASA Classification* ASA Classification ASA Classification: 2 Assessment & Plan Anesthesia* Anesthesia Assessment Anesthesia Assessment: Discussed sedation and/or anesthesia options, risks, benefits, and alternatives with patient/parents/legal guardian/POA. Questions invited. The patient/parents/legal guardian/POA seems to understand and agrees to proceed with anesthesia plan. Reviewed the physical assessment, medical history, allergy history and patient home medications list prior to surgery/procedure/anesthetic and documented any changes. Performed airway and anesthesia risk assessments. Anesthesia Type Anesthesia Type: MAC (MAC anesthesia with propofol.) History Source History Obtained from:: Patient and Chart Anesthesia Focused Assessment* Temperature: 98.6 F Pulse Rate: 77 Blood Pressure: 136/87 Respiratory Rate: 18 Pulse Ox: 100 Oxygen Delivery Method: Room Air Airway Assessment Mouth opens: >3 cm Mallampati Score: IV Teeth Condition: Caps/Crowns (Patient has a couple crowns left lower jaw. They are tight.) Neck Range of motion (ROM): Limited ROM (Somewhat Decreased) Labs Anesthesia Preop lab: CBC WBC 5.0 K/mm3 (4.4-11.0) 02/21/25 15:08 02/21/25 RBC 4.58 M/mm3 (4.6-6.2) L 02/21/25 15:08 02/21/25 Hgb 13.5 g/dL (13.0-16.5) 02/21/25 15:08 02/21/25 Hct 38.8 % (40-54) L 02/21/25 15:08 02/21/25 Plt Count 210 K/mm3 (150-450) 02/21/25 15:08 02/21/25 CHEMISTRY Potassium 4.5 mmol/L (3.3-5.1) 02/21/25 15:08 02/21/25 Sodium 136 mmol/L (133-145) 02/21/25 15:08 02/21/25 Magnesium 2.3 mg/dL (1.5-2.2) H 02/21/25 15:08 02/21/25 Phosphorus 3.6 mg/dL (2.7-4.5) 02/21/25 15:08 02/21/25 BUN 29 mg/dL (4-19) H 02/21/25 15:08 02/21/25 Creatinine 0.81 mg/dL (0.70-1.20) 02/21/25 15:08 02/21/25 Glucose 395 mg/dL (70-99) H 02/21/25 15:08 02/21/25 POC Glucose 229 mg/dL (74-106) H 01/14/25 11:40 01/14/25 COAG Pre-Assessment Diagnosis/Proposed Procedure Planned Operative Procedure(s): (R) Insertion, Vascular Port right poss left Anesthesia History 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 When Was Last Pacemaker Check QUESTION #4 FULL TEXT: You/Your Family Experience fever (hyperthermia) with Anesthesia Last Oral Intake Last Oral intake: Last Oral Intake NPO since 21:00 03/03/25 12:33 Meds taken in AM with sips of No 03/03/25 12:33 water? Meds patient instructed to take am of surgery PONV PONV - equipment service engineer: PONV - equipment service engineer Female No 02/24/25 08:15 HX of Motion Sickness Yes 02/24/25 08:15 HX of N/V After Surgery Yes 02/24/25 08:15 Non-Smoker Yes 02/24/25 08:15 Duration of Surgery greater No 02/24/25 08:15 than 60 minutes Number of Risk Factors 3 02/24/25 08:15 PONV Score Moderate Risk 02/24/25 08:15 Height & Weight Height & Weight: Anesthesia: Height & Weight Height 5 ft 10 in 03/03/25 12:33 Weight: 80.9 kg 03/03/25 12:33 Body Mass Index (BMI) 25.5 03/03/25 12:33 Respiratory Assessment Respiratory Assessment - equipment service engineer: Respiratory Tract Infection Hx - equipment service engineer Hx Respiratory Tract Infection No 02/24/25 08:15 STOP Sleep Apnea STOP Sleep Apnea - equipment service engineer: STOP Sleep Apnea - equipment service engineer Hx Hypertension No 02/24/25 08:15 Hx Sleep Apnea No 02/24/25 08:15 CPAP BIPAP Do you snore loudly (louder No 02/24/25 08:15 than talking or can be heard Do you often feel tired/ No 02/24/25 08:15 fatigued/ sleepy during daytime? Has anyone observed you stop No 02/24/25 08:15 breathing during sleep? STOP Results Negative 02/24/25 08:15 QUESTION #5 FULL TEXT : Do you snore loudly (louder than talking or can be heard through closed doors)? 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 Specify any problems Hx of Preganancy in last 3 N/A 02/24/25 08:15 Months Nurse Filling Out Transfusion JZOLLINGE 02/24/25 08:15 & Questions: Date: 02/24/25 02/24/25 08:15 Time: 08:18 02/24/25 08:15 Patient unable to answer at this time (ie. confused, unrespo /Reproduction History /Reproductive History - equipment service engineer: /Reproductive Hx- equipment service engineer Hx Now No 02/24/25 08:15 Gestational Age (in weeks): EDC: Hx Hx Para Hx Section SAB No 02/24/25 08:15 Active Medications Active Medications: Current Medications Generic Name Dose Route Start Last Admin Trade Name Freq PRN Reason Stop Dose Admin Cefazolin Sodium 2 gm/ Sodium 110 mls @ 200 mls/hr 03/03/25 13:30 Chloride IV 03/03/25 14:02 INTRAOP ONE Lactated Ringer's 1,000 mls @ 15 mls/hr 03/03/25 12:00 03/03/25 12:39 IV 15 mls/hr .Q48H JACOB Administration PFSH Medical History Encounter for education Wears glasses Arthritis Dietary restriction Non-smoker Regional lymph node metastasis present Pancreas cancer Diabetes mellitus, type 2 Dilated pancreatic duct Dilated bile duct Jaundice Umbilical hernia Gallbladder problem Nausea RUQ pain Cataract Home Medications ?Medication ?Instructions ?Recorded ?Last Taken ?Type metformin 500 mg tablet 500 mg PO BID 01/20/25 Unknown History insulin glargine-yfgn 100 unit/mL 18 unit subcut QHS 02/21/25 Unknown History (3 mL) subcutaneous pen reqqqf-ggshyrrs-tnnfamp 2 cap PO QAC 02/21/25 Unknown History 12,000-38,000-60,000 unit capsule,delayed rel (Creon) sitagliptin phosphate 50 mg tablet 50 mg PO QDAY 02/21/25 Unknown History (Januvia) lidocaine-prilocaine 2.5 %-2.5 % 1 applic topical ONCE PRN port 02/24/25 Unknown Rx topical cream access 30 days #30 grams ondansetron 8 mg disintegrating 8 mg PO Q8H PRN nausea and 02/24/25 Unknown Rx tablet vomiting #30 tabs prochlorperazine maleate 10 mg 10 mg PO Q6H PRN nausea and 02/24/25 Unknown Rx tablet vomiting #30 tabs Allergy/AdvReac Type Severity Reaction Status Date / Time No Known Allergies Allergy Verified 03/03/25 12:31 Family History Uncle Diabetes Cancer Sister Diabetes Father Cancer Surgical History (Updated 03/03/25 @ 13:[address] Claus Suggs MD) H/O esophagogastroduodenoscopy H/O arthroscopy of right knee H/O right inguinal hernia repair History of appendectomy Social History household members: spouse Smoking Status: Never smoker alcohol intake: never substance use type: does not use Review of Systems (Anesthesia) ROS Narrative System reviewed and no additional complaints, except as documented.
[2025-03-03] MEDS: Cefazolin 1 GM/5 ML Vial 2 GM IV (13:10)
[2025-03-03] MEDS: Lactated Ringers 500 ML IV (13:10)
[2025-03-03] MEDS: Midazolam 2 MG/2 ML Syringe IV (13:13)
[2025-03-03] MEDS: fentaNYL 100 MCG/2 ML Ampul IV (13:14)
[2025-03-03] MEDS: PROPOFOL 9.86 MG IV (13:15)
[2025-03-03] MEDS: Lidocaine 1% /Epi 1:100 (20ml) 20 ML Vial (13:30)
--- NOTE | 2025-03-03 13:38 | PCM.OPRPT ---
Operative Report (Standard) Operative Information Date of Procedure: 03/03/25 Pre-Operative Diagnosis: Need for vascular access for chemotherapy Post-Operative Diagnosis: Same Surgery/Procedure Performed: Ultrasound and fluoroscopy guided right chest port placement utilizing right IJ senior mobile solutions architect: No Type of Anesthesia: Local MAC RN Documented Start/Stop Times: Operation Date: 03/03/25 13:30 Case Time Into Pre-Op 03/03/25 12:02 Out of Pre-Op 03/03/25 12:59 Anesthesia Start 03/03/25 13:10 Into Room 03/03/25 13:10 Procedure Start 03/03/25 13:24 Procedure End 03/03/25 13:34 Procedure Start Time: 13:24 Procedure Stop Time: :34 Select all DRAINS/GRAFTS/IMPLANTS that apply: Implanted device Implanted device details: 8 [place] PowerPort Estimated Blood Loss: 5 Specimen collected: No Description of surgery: After obtaining informed consent patient was brought back to the operating room MAC anesthesia was induced and the right chest and neck were prepped in normal sterile fashion. Ultrasound was used to evaluate both IJs and the right IJ was selected. Next, using a needle, the right IJ was accessed and a guidewire was passed on into the superior vena cava under fluoroscopy guidance. A small incision was made over the puncture site and the dilator introducer was placed over the guidewire. Next this was capped and the pocket was made for the port. 1% lidocaine with epinephrine was injected in the proposed port site. An incision was made with scalpel. Electrocautery was used to make a pocket under the skin and subcutaneous tissue. Hemostasis was obtained. Next, the catheter was tunneled up to the neck incision site and placed through the introducer. The peel-away introducer was removed and the position of the catheter was confirmed on fluoroscopy. Next, the catheter was trimmed and attached to the port with the locking device. Interrupted 2-0 Vicryl sutures were used to anchor the port to the chest wall and then the port was placed inside the pocket. The pocket was then flushed with saline and the port irrigated with saline. There was good blood return and the port flushed easily. Next, heparin was injected into the port. The skin was closed with subcutaneous interrupted 3-0 Vicryl sutures. A single 3-0 Vicryl sutures placed under the skin at the neck incision site. Steri-Strips were placed as well as op sites. Patient tolerated procedure well, was taken to PACU in stable condition. Chest x-ray will be obtained. Surgical Findings: None Complications Complications: No Admit VTE Documentation VTE Mechan Device Prophylaxis: SCD's
--- NOTE | 2025-03-03 13:39 | DCINST_ITS ---
Discharge Instructions Procedure Port-A-Cath Diet Discharge Diet: Light diet - advance as tolerated (Pain medication may cause nausea. You should typically eat light foods as you take your pain medication.) Activity Discharge Activity: Return to Normal Activity and May Shower (with your bandage in place in 1-2 days after surgery. DO NOT SHOWER WHEN YOUR PORT IS ACCESSED.) Additional Activity Instructions:: Alternate ibuprofen and Tylenol for pain control Dressing / Incision Call your doctor if your incision/area has: Continuous Slow Oozing, Sudden Increased Bleeding, Increased Pain/ Swelling, Increased Redness and Foul Smelling Discharge Call your doctor if you observe: Fever of 101 or Higher Remove Dressing in: 2 days Cleanse incision/area with: Soap & Water Follow Up Care Please Follow Up With: Freeman Stauffer MD When: as needed [phone] Test Results: Test results from this visit will be discussed in further detail at your follow- up appointment, if applicable. Discharge Plan Admission Attending Provider: Freeman Stauffer Primary Care Provider: Belle Monk Instructions Print Language: Korean Discharge Orders/Prescriptions Prescriptions: No Action metformin 500 mg tablet 500 mg PO BID insulin glargine-yfgn 100 unit/mL (3 mL) insulin pen 18 unit subcut QHS Patient Comments: INJECT 20 UNITS SUBCUTANEOUSLY DAILY AND ADJUST PER SCHEDULE. Creon 12,000-38,000 -60,000 unit capsule,delayed release(DR/EC) 2 cap PO QAC Rx Instructions: plus 1 cap before snack Januvia 50 mg tablet 50 mg PO QDAY lidocaine-prilocaine 2.5-2.5 % cream 1 applic topical ONCE PRN (Reason: port access) 30 Days Qty: 30 2RF ondansetron 8 mg tablet,disintegrating 8 mg PO Q8H PRN (Reason: nausea and vomiting) Qty: 30 2RF Patient Comments: has not started yet prochlorperazine maleate 10 mg tablet 10 mg PO Q6H PRN (Reason: nausea and vomiting) Qty: 30 2RF Referrals / Follow Up: Belle Monk MD [Primary Care Provider] - Disposition Disposition (needs filled in before D/C Order can be placed): Home, Self Care
--- NOTE | 2025-03-03 13:45 | PCM.POST.ANE ---
Anesthesia: Postop Eval I Current Vital Signs Temperature: 98.6 F Pulse Rate: 73 Blood Pressure: 136/87 Respiratory Rate: 14 Pulse Ox: 98 Oxygen Delivery Method: Room Air Assessment Airway patent: Yes Spontaneous unlabored respirations: Yes Mental status: Awake and Calm nausea: No Vomiting: No Anesthesia Complication: No Fluid Hydration Crystalloid volume administer (ml): 500 Total IV fluid infused: 500 Progress Note Anesthesia document: Postop Eval 1 completed: Yes
--- NOTE | 2025-03-03 13:50 | RAD_ITS ---
PROCEDURE: CXR FOR LINE PLACEMENT 03/03/2025 REASON FOR EXAM: LINE PLACEMENT TECHNIQUE: CXR FOR LINE PLACEMENT COMPARISON: None FINDINGS: A right-sided port a catheter has been placed with the tip at the junction of the superior vena cava and right atrium. EKG electrodes are seen. The lungs are clear. Degenerative changes of the thoracic spine. RAD/CXR for Line Placement IMPRESSION: The tip of the right-sided port a catheter is at the junction of the superior v guerrero cava and right atrium. Reading Location: [place] [address]
== END 2025-03-03 15:39 | disposition home or self-care (01) ==
LOC: SDC 11:54 → AC 11:56
PROVIDERS: PCP Family Medicine; Referring Provider Surgery; Visit Provider Surgery
PROC: (CPT 36561; principal; 2025-03-03 13:15)
DX: C25.0 Malignant neoplasm of head of pancreas (principal); E11.9 Type 2 diabetes mellitus without complications; Z79.4 Long term (current) use of insulin; Z79.84 Long term (current) use of oral hypoglycemic drugs
CPT/HCPCS: 36561; 00532; 71045; 77001; 82962; C1788; J2405

== ENCOUNTER → 2025-03-04 | Outpatient (CLI) | payer MEDICARE, OTHER, SELFPAY ==
--- NOTE | 2025-03-04 06:06 | CT_ITS ---
PROCEDURE: CHEST WITH CONTRAST 03/04/2025 REASON FOR EXAM: PANCREATIC CA Newly diagnosed. TECHNIQUE: CHEST WITH CONTRAST Coronal and Sagittal reconstruction series were provided. CONTRAST: Isovue-300 VOLUME: 100 mL One or more dose reduction techniques were used (e.g., Automated exposure control, adjustment of the mA and/or kV according to patient size, use of iterative reconstruction technique). RADIATION DOSE SUMMARY: CTDlvol: 13 point 17 mGy DLP: 544.67 mGycm COMPARISON: None FINDINGS: Hardware: A right-sided port a catheter is seen with the tip in the superior vena cava. Lymph nodes: Small benign-appearing axillary and mediastinal lymph nodes. Heart and Vasculature: The heart is not enlarged. No evidence of coronary artery calcification. Lungs and Airways: The lungs are clear. No infiltration, consolidation or suspicious pulmonary nodule seen. Pleura: No pleural effusion. Upper Abdomen: Heterogeneous appearance of the liver suggestive of tiny metastasis. A biliary stent is seen within the common bile duct. Bones: Degenerative changes of the thoracic spine. CT/Chest WITH Contrast IMPRESSION: Coronary artery calcification (CAC) is is absent No pulmonary abnormality is seen. Heterogeneous appearance of the liver suggestive of tiny metastasis. A biliary stent is seen within the common bile duct. Reading Location: [facility]
--- OUTSIDE RECORDS SUMMARY | 2025-03-04 06:09 | XMS RPT_ITS | CCD ---
Author Organization [facility] Care Team Providers Care Marine Oiler Name Role Phone Care Physician, No Primary Primary Care Provider Unavailable Jay HERRERA, Dr. Hunt Attending Provider Jay HERRERA, Dr. Hunt Emergency Provider Aleshia HERRERA, Dr. Odonnell Primary Care Provider Dr. Belle Monk MD Attending Provider Dr. Belle Monk MD Referring Provider Dr. Freeman Stauffer MD Attending Provider Jeremy Lockett MD Emergency Provider [...] Belle Monk MD Primary Care Provider Digna PDEROZA [facility], Mansour S Unavailable Vick BARNARD, Kathy Unavailable Unavailable BERNA PERRY Attending Unavailable BALDOMERO ALEJO Referring Unavailable MIEDEL, BELLE Primary Care Unavailable BALDOMERO CLEMONS Attending Unavailable REJI BERRY Referring Unavailable MIEDEL, BELLE Primary Care Unavailable BURLENBALDOMERO Attending Unavailable SHANELLELENBALDOMERO Referring Unavailable MIEDEL, BELLE Primary Care Unavailable MIEDEL, BELLE Primary Care Unavailable SELF, SELF Referring Unavailable BALDOMERO ALEJO M Attending Unavailable MIEDEL, BELLE Primary Care Unavailable ISCKARUS, MANSOUR S Referring Unavailable BALDOMERO ALEJO Attending Unavailable Aleshia HERRERA, Dr. Odonnell Primary Care Provider Aleshia HERRERA, Dr. Odonnell Attending Provider Dr. Belle Monk MD Referring Provider Dr. Elin Benites DO Referring Provider Digna HERRERA, Dr. Lambert Referring Provider Sindhu MERCHANDISE DIRECTOR-C, Ludivina Attending Provider Dr. Freeman Stauffer MD Referring Provider [phone] Xiomy HERRERA, Dr. Millard Other Provider Miel, Belle Primary Care Unavailable Isckarus, Mansour Attending Unavailable Isckarus, Mansour Referring Unavailable Thompson, Gilbert Attending Unavailable Care Physician, No Primary Primary Care Unava ilable Miedel, Belle Primary Care Unavailable Isckarus, Mansour Referring Unavailable Isckarus, Mansour Attending Unavailable Miedel, Belle Primary Care Unavailable Isckarus, Mansour Attending Unavailable Elin Benites Referring Unavailable Miedel, Belle Primary Care Unavailable Miedel, Belle Referring Unavailable Miedel, Belle Attending Unavailable Miedel, Belle Primary Care Unavailable Matilde Henry Admitting Unavailable Matilde Henry Consulting Unavailable Elin Benites Attending Unavailable Freeman Stauffer Referring Unavailable Freeman Stauffer Attending Unavailable Miedel, Belle Primary Care Unavailable Isckarus, Mansour Referring Unavailable Isckarus, Mansour Attending Unavailable Miedel, Overbrook Primary Care Unavailable Freeman Stauffer Attending Unavailable Petra Sawyer Referring Unavailable Miedel, Overbrook Primary Care Unavailable Predel, Overbrook Primary Care Unavailable Miedel, Belle Referring Unavailable Ludivina Manley NP Attending Unavailable Miedel, Overbrook Primary Care Unavailable Miedel, Belle Referring Unavailable Miedel, Belle Attending Unavailable Pred, Overbrook Primary Care Unavailable Predel, Belle Attending Unavailable Miedel, Belle Referring Unavailable Miedel, Overbrook Primary Care Unavailable Petra Sawyer Attending Unavailable Miedel, Overbrook Primary Care Unavailable Miedel, Belle Referring Unavailable Xiomy, Freeman Attending Unavailable Miedel, Overbrook Primary Care Unavailable Freeman Stauffer Referring Unavailable Xiomy, Freeman Attending Unavailable Freeman Stauffer Consulting Unavailable Miedel, Overbrook Primary Care Unavailable Matilde Henry Admitting Unavailable Matilde Henry Consulting Unavailable Elin Benites Attending Unavailable Elin Benites Consulting Unavailable Predel, Overbrook Primary Care Unavailable Matilde Henry Attending Unavailable Trevon Webber Attending Unavailable Elin Benites Referring Unavailable Miedel, Overbrook Primary Care Unavailable Matilde Henry Referring Unavailable Ellen De La Garza Attending Unavailable Medications Current Medications Medication Drug Class(es) Dates Sig (Normalized) Sig (Original) amylase 61981 unt / lipase 16546 unt / protease 49125 unt delayed release oral capsule (5 sources) Start: 01-27-2025 take 2 capsules by mouth at mealtime, then take 1 capsule by mouth once daily Pancreatic enzymes (Creon) 16513-[address]-[address] units Cap [address] Particles Take two by mouth with meals and one with snacks daily. 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 of lymph node, unspecified Fyzakq-Yikrecwj-Amho ase (Creon) 12,000-38,000 -60,000 unit capsule,delayed release(DR/EC) (5 sources) Start: 02-21-2025 Yfenlg-Pqfdvzex-H mylase (Creon) 12,000-38,000 -60,000 unit capsule,delayed release(DR/EC) Active 2 NMA PO before meals February 21, 2025 12:00am plus 1 cap before snack metFORMIN hydrochloride 500 mg oral tablet (20 sources) Biguanide Start: 01-17-2025 take 1 tablet by mouth twice daily Metformin 500 mg tablet Active 500 mg PO TWICE A DAY January 20, 2025 12:00am Start: 07-20-2024 End: 01-12-2025 take 1 tablet by mouth twice daily Metformin 500 mg tablet Discontinued 500 mg PO TWICE A DAY 60 0 July 20, 2024 1:00am January 12, 2025 8:55am [place] (Nk) (3 sources) Start: 07-20-2024 [place] (Nk) Active July 20, 2024 1:00am ondansetron 8 mg disintegrating oral tablet (4 sources) Serotonin-3 Receptor Antagonist Start: 02-24-2025 take 1 tablet by mouth every eight hours as needed for nausea and vomiting Ondansetron 8 mg tablet,disintegrating Active 8 mg PO Q8H as needed for nausea and vomiting February 24, 2025 12:00am Malignant neoplasm 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 neoplasm of lymph node, unspecified prochlorperazine 10 mg oral tablet (4 sources) Phenothiazine Start: 02-24-2025 take 1 tablet by mouth every six hours as needed for nausea and vomiting Prochlorperazine Maleate 10 mg tablet Active 10 mg PO EVERY 6 HOURS as needed for nausea and vomiting 30 February 24, 2025 12:00am Chemotherapy-induced nausea and vomiting Malignant neoplasm of pancreas Nausea with vomiting, unspecified Adverse effect of antineoplastic and immunosuppressive drugs, initial encounter Malignant neoplasm of head of pancreas SITagliptin 50 mg oral tablet (19 sources) Dipeptidyl Peptidase 4 Inhibitor Start: 02-21-2025 [...] Active Problems Problem Classification Problem Date Documented Date Episodic/Chronic Abdominal hernia (9 sources) Umbilical hernia; Translations: [Umbilical hernia without obstruction or gangrene] 01-12-2025 Episodic Abdominal pain (20 sources) Right upper quadrant pain; Translations: [Right upper quadrant pain] Onset: 02-01-2025 01-12-2025 Episodic Administrative/socia l admission (1 source) Counseling, unspecified; Translations: [Counseling, unspecified] Onset: 02-24-2025 Episodic Biliary tract disease (20 sources) Cholangiectasis; 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] Onset: 01-27-2025 01-12-2025 Chronic Biliary tract disease (18 sources) Gallbladder problem; Translations: [Disease of gallbladder, unspecified] Onset: 01-12-2025 01-12-2025 Episodic Cancer of other GI organs; peritoneum (1 source) Malignant neoplasm of extrahepatic bile duct; Translations: [Malignant neoplasm of extrahepatic bile duct] Onset: 01-20-2025 Chronic Cancer of pancreas (20 sources) Malignant tumor of pancreas; Translations: [Malignant neoplasm of pancreas, unspecified] Onset: 01-27-2025 01-27-2025 Chronic Diabetes mellitus with complications (13 sources) Ketosis; Translations: [Type 2 diabetes mellitus with ketoacidosis without coma] Onset: 08-11-2024 07-28-2024 Chronic Diabetes mellitus without complication (20 sources) Type 2 diabetes mellitus; Translations: [Type 2 diabetes mellitus without complications] Onset: 10-25-2024 Resolved: 01-27-2025 07-28-2024 Chronic Comment on above: 07-20-24 E Codes: Adverse effects of medical drugs (1 source) Adverse effect of antineoplastic and immunosuppressive drugs, initial encounter; Translations: [Adverse effect of antineoplastic and immunosuppressive drugs, initial encounter] Onset: 02-24-2025 Episodic Fluid and electrolyte disorders (12 sources) Dehydration; Translations: [Dehydration] 07-28-2024 Episodic Nausea and vomiting (11 sources) Nausea; Translations: [Nausea] Onset: 01-12-2025 01-12-2025 Episodic Neoplasms of unspecified nature or uncertain behavior (1 source) Neoplastic disease; Translations: [Neoplasm of unspecified behavior of unspecified site] 02-10-2025 Episodic Other aftercare (1 source) Encounter for adjustment and management of vascular access device; Translations: [Encounter for adjustment and management of vascular access device] Onset: 02-24-2025 Episodic Other circulatory disease (12 sources) Elevated blood-pressure reading without diagnosis of hypertension; Translations: [Elevated blood-pressure reading, without diagnosis of hypertension] 07-28-2024 Episodic Other liver diseases (16 sources) Jaundice; Translations: [Unspecified jaundice] 01-12-2025 Episodic Other liver diseases (1 source) Unspecified jaundice; Translations: [Unspecified jaundice] Onset: 02-01-2025 Episodic Other screening for suspected conditions (not mental disorders or infectious disease) (15 sources) Patient encounter status; Translations: [Encounter for screening for diabetes mellitus] 02-10-2025 Episodic Pancreatic disorders (not diabetes) (17 sources) Pancreatic duct disorder; Translations: [Other specified diseases of pancreas] Onset: 02-01-2025 01-12-2025 Episodic Secondary malignancies (20 sources) Regional lymph node metastasis present ; Translations: [Secondary and unspecified malignant neoplasm of lymph node, unspecified] 02-21-2025 Chronic Secondary malignancies (2 sources) Secondary and unspecified malignant neoplasm of lymph node, unspecified; Translations: [Secondary and unspecified malignant neoplasm of lymph node, unspecified] Onset: 02-24-2025 Chronic Unclassified (7 sources) stop by his office today to make an appointment for next week Unclassified (5 sources) Bowel Prep Onset: 01-27-2025 01-27-2025 Unclassified (1 source) Common bile duct stricture Unclassified (6 sources) K83.1 - Obstruction of bile duct Unclassified (8 sources) Malignant neoplasm of pancreas Unclassified (8 sources) C77.9 - Secondary and unspecified malignant neoplasm of lymph node, unspecified,C25.9 - Malignant neoplasm of pancreas, unspecified Past or Other Problems Problem Classification Problem Date Documented Da te Episodic/Chronic Mood disorders (6 sources) Mood disorders Onset: 01-27-2025 01-27-2025 Results Test Name Value Interpretation Reference Range Facility Bedside Glucoseon 03-03-2025 FINGERSTICK GLU 196 mg/dL High 74-106 [facility] Comment on above: Result Comment: YUKI GEMENT OF PATIENT CARE PER NURSING PROTOCOL Performed By: #### L 501.080 #### [facility] [address] [place], [place], [address] CXR for Line Placementon CXR for Line Placement [facility] [address] [place], [place] [address] CXR for Line Placement MR#: [id number] Acct: [id number] Name: ERICK GAUTAM Rep #: [id number] : 1955 M 69 From: He malcolm MD PCP: Dr. Belle Monk MD Status: [facility] Study: CXR for Line Placement Date of Exam: 03/03/25 Exam# [id number] Ordering Dr: Freeman Stauffer PROCEDURE: CXR FOR LINE PLACEMENT 03/03/2025 REASON FOR EXAM: LINE PLACEMENT TECHNIQUE: CXR FOR LINE PLACEMENT COMPARISON: None FINDINGS: A right-sided port a catheter has been placed with the tip at the junction of the superior vena cava and right atrium. EKG electrodes are seen. The lungs are clear. Degenerative changes of the thoracic spine. RAD/CXR for Line Placement IMPRESSION: The tip of the right-sided port a catheter is at the junction of the superior vena cava and right atrium. Reading Location: [place] [address] CC: Dr. Freeman Stauffer MD; Dr. Belle Monk MD [employer] Engineer: Signed Normal [facility] Discharge Instructionon 02-18 Discharge Instruction [facility] Medical Records Department [address] [place] [id number] Instructions for Home/Discharge Instructions 03/03/25 1339 MR#: [id number] Acct: [id number] Name: ERICK GAUTAM Rep #: [id number] : 1955 69 From: Freeman Stauffer MD PCP: Dr. Belle Monk MD Status:REG [facility] Discharge Instructions Procedure Port-A-Cath Diet Discharge Diet: Light diet - advance as tolerated (Pain medication may cause nausea. You should typically eat light foods as you take your pain medication.) Activity Discharge Activity: Return to Normal Activity and May Shower (with your bandage in place in 1-2 days after surgery. DO NOT SHOWER WHEN YOUR PORT IS ACCESSED.) Additional Activity Instructions:: Alternate ibuprofen and Tylenol for pain control Dressing / Incision Call your doctor if your incision/area has: Continuous Slow Oozing, Sudden Increased Bleeding, Increased Pain/ Swelling, Increased Redness and Foul Smelling Discharge Call your doctor if you observe: Fever of 101 or Higher Remove Dressing in: 2 days Cleanse incision/area with: Soap Water Follow Up Care Please Follow Up With: Freeman Stauffer MD When: as needed [phone] Test Results: Test results from this visit will be discussed in further detail at your follow-up appointment, if applicable. Discharge Plan Admission Attending Provider: Freeman Stauffer Primary Care Provider: Belle Monk Instructions Print Language: Tajik Discharge Orders/Prescriptions Prescriptions: No Action metformin 500 mg tablet 500 mg PO BID insulin glargine-yfgn 100 unit/mL (3 mL) insulin pen 18 unit subcut QHS Patient Comments: INJECT 20 UNITS SUBCUTANEOUSLY DAILY AND ADJUST PER SCHEDULE. Creon 12,000-38,000 -60,000 unit capsule,delayed release(DR/EC) 2 cap PO QAC Rx Instructions: plus 1 cap before snack Januvia 50 mg tablet 50 mg PO QDAY lidocaine-prilocaine 2.5-2.5 % cream 1 applic topical ONCE PRN (Reason: port access) 30 Days Qty: 30 2RF ondansetron 8 mg tablet,disintegrating 8 mg PO Q8H PRN (Reason: nausea and vomiting) Qty: 30 2RF Patient Comments: has not started yet prochlorperazine maleate 10 mg tablet 10 mg PO Q6H PRN (Reason: nausea and vomiting) Qty: 30 2RF Referrals / Follow Up: Belle Monk MD [Primary Care Provider] - Disposition Disposition (needs filled in before D/C Order can be placed): Home, Self Care 03/03/25 1340 Freeman Stauffer MD CC: Dr. Belle Monk MD Signed Normal [facility] Glucose measurement at [facility] deOrdered By: Freeman Stauffer on 03-03-2025 Glucose [Mass/Vol] 196 mg/dL High 74-106 [facility] Comment on above: MANAGEMENT OF PATIEN T CARE PER NURSING PROTOCOL MR/POSTOP.ANEon 03-03-2025 MR/POSTOP.[facility] Medical Records Department [address] [place] [address] Anesthesia Postop Eval I 03/03/25 1345 MR#: [id number] Acct: [id number] Name: ERICK GAUTAM Rep #: [id number] : 1955 69 From: Ethan Morocho CRNA PCP: Dr. Belle Monk MD Status:REG [facility] Y Race: C Location: [place] [address] Anesthesia: Postop Eval I Current Vital Signs Temperature: 98.6 F Pulse Rate: 73 Blood Pressure: 136/87 Respiratory Rate: 14 Pulse Ox: 98 Oxygen Delivery Method: Room Air Assessment Airway patent: Yes Spontaneous unlabored respirations: Yes Mental status: Awake and Calm nausea: No Vomiting: No Anesthesia Complication: No Fluid Hydration Crystalloid volume administer (ml): 500 Total IV fluid infused: 500 Progress Note Anesthesia document: Postop Eval 1 completed: Yes 03/03/25 1345 Date Ethan Blough ARRANGER ASSEMBLER Cosigner Signature: Date CC: Signed Normal [facility] Operative Reporton Operative Report [facility] Medical Records Department [address] [place] [address] Operative Report 03/03/25 1338 MR#: [id number] Acct: [id number] Name: ERICK GAUTAM Rep #: [id number] : 1955 69 From: Freeman Stauffer MD PCP: Dr. Belle Monk MD Status:[facility] Location: [place] [address] Operative Report (Standard) Operative Information Date of Procedure: 03/03/25 Pre-Operative Diagnosis: Need for vascular access for chemotherapy Post-Operative Diagnosis: Same Surgery/Procedure Performed: Ultrasound and fluoroscopy guided right chest port placement utilizing right IJ tumbler plater: No Type of Anesthesia: Local MAC RN Documented Start/Stop Times: Operation Date: 03/03/25 13:30 Case Time Into Pre-Op 03/03/25 12:02 Out of Pre-Op 03/03/25 12:59 Anesthesia Start 03/03/25 13:10 Into Room 03/03/25 13:10 Procedure Start 03/03/25 13:24 Procedure End 03/03/25 13:34 Procedure Start Time: 13:24 Procedure Stop Time: 13:34 Select all DRAINS/GRAFTS/IMPLANTS that apply: Implanted device Implanted device details: 8 Congolese PowerPort Estimated Blood Loss: 5 Specimen collected: No Description of surgery: After obtaining informed consent patient was brought back to the operating room MAC anesthesia was induced and the right chest and neck were prepped in normal sterile fashion. Ultrasound was used to evaluate both IJs and the right IJ was selected. Next, using a needle, the right IJ was accessed and a guidewire was passed on into the superior vena cava under fluoroscopy guidance. A small incision was made over the puncture site and the dilator introducer was placed over the guidewire. Next this was capped and the pocket was made for the port. 1% lidocaine with epinephrine was injected in the proposed port site. An incision was made with scalpel. Electrocautery was used to make a pocket under the skin and subcutaneous tissue. Hemostasis was obtained. Next, the catheter was tunneled up to the neck incision site and placed through the introducer. The peel-away introducer was removed and the position of the catheter was confirmed on fluoroscopy. Next, the catheter was trimmed and attached to the port with the locking device. Interrupted 2-0 Vicryl sutures were used to anchor the port to the chest wall and then the port was placed inside the pocket. The pocket was then flushed with saline and the port irrigated with saline. There was good blood return and the port flushed easily. Next, heparin was injected into the port. The skin was closed with subcutaneous interrupted 3-0 Vicryl sutures. A single 3-0 Vicryl sutures placed under the skin at the neck incision site. Steri-Strips were placed as well as op sites. Patient tolerated procedure well, was taken to PACU in stable condition. Chest x-ray will be obtained. Surgical Findings: None Complications Complications: No Admit VTE Documentation VTE Mechan Device Prophylaxis: SCD's 03/03/25 1339 Cosigner Signature (if applicable): CC: Dr. Freeman Stauffer MD; Dr. Belle Monk MD Signed Normal [facility] MR/PAT.GISSELLon 02-24-2025 MR/PAT.[facility] Medical Records Department [address] [place] [address] PAT - Anesthesia 02/24/25 1014 MR#: [id number] Acct: [id number] Name: ERICK GAUTAM Rep #: [id number] : 1955 69 From: Ras Orozco MD PCP: Dr. 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 When Was Last Pacemaker Check QUESTION #4 FULL TEXT: You/Your Family Experience fever (hyperthermia) with Anesthesia Last Oral Intake Last Oral intake: Last Oral Intake NPO since Meds taken in AM with sips of water? 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 cutter operator Female No 02/24/25 08:15 HX of Motion Sickness Yes 02/24/25 08:15 HX of N/V After Surgery Yes 02/24/25 08:15 Non-Smoker Yes 02/24/25 08:15 Duration of Surgery greater No 02/24/25 08:15 than 60 minutes Number of Risk Factors 3 02/24/25 08:15 PONV Score Moderate Risk 02/24/25 08:15 Height Weight Height Weight: Anesthesia: Height Weight Height 5 ft 11 in 02/21/25 13:42 Respiratory Assessment Respiratory Assessment - abrasive water jet cutter operator: Respiratory Tract Infection Hx - abrasive water jet cutter operator Hx Respiratory Tract Infection No 02/24/25 08:15 STOP Sleep Apnea STOP Sleep Apnea - abrasive water jet cutter operator: STOP Sleep Apnea - abrasive water jet cutter operator Hx Hypertension No 02/24/25 08:15 Hx Sleep Apnea No 02/24/25 08:15 CPAP BIPAP Do you snore loudly (louder No 02/24/25 08:15 than talking or can be heard Do you often feel tired/ No 02/24/25 08:15 fatigued/ sleepy during daytime? Has anyone observed you stop No 02/24/25 08:15 breathing during sleep? STOP Results Negative 02/24/25 08:15 QUESTION #5 FULL TEXT : Do you snore loudly (louder than talking or can be heard through closed doors)? 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 Specify any problems Hx of Preganancy in last 3 N/A 02/24/25 08:15 Months Nurse Filling Out Transfusion JZOLLINGE 02/24/25 08:15 Questions: Date: 02/24/25 02/24/25 08:15 Time: 08:18 02/24/25 08:15 Patient unable to answer at this time (ie. confused, unrespo /Reproduction History /Reproductive History - abrasive water jet cutter operator: /Reproductive Hx- abrasive water jet cutter operator Hx Now No 02/24/25 08:15 Gestational Age (in weeks): EDC: Hx Hx Para Hx Section SAB No 02/24/25 08:15 [facility] Medical History (Updated 02/24/25 @ 08:15 by Nelia Rios) Wears glasses Arthritis Dietary restriction Non-smoker Regional lymph node metastasis present Pancreas cancer Diabetes mellitus, type 2 Dilated pancreatic duct Dilated bile duct Jaundice Umbilical hernia Gallbladder problem Nausea RUQ pain Cataract Home Medications ???Medication ???Instructions ???Recorded ???Last Taken ???Type metformin 500 mg tablet 500 mg PO BID 01/20/25 Unknown His tory insulin glargine-yfgn 100 unit/mL 18 unit subcut QHS 02/21/25 Unkno wn History (3 mL) subcutaneous pen otbtuh-kbxwecyg-aqwxrto 2 cap PO QAC 02/21/25 Unknown Hist ory 12,000-38,000-60,000 unit capsule,delayed rel (Creon) sitagliptin phosphate 50 mg tablet 50 mg PO QDAY 02/21/25 Unknown H istory (Januvia) Allergy/AdvReac Type Severity Reaction Status Date / Time No Known Allergies Allergy Verified (more content not included)... Normal [facility] Oncology Visit Reporton Oncology Visit Report [facility] [place] [address] OFFICE VISIT Date of Service: 02/24/25 1204 MR#: [id number] Acct: [id number] Name: ERICK GAUTAM Rep #: [id number] : 1955 From: Ludivina Manley NP MERCHANDISE DIRECTOR -C Age/Sex: 69/M Location: [facility] Status: Signed HPI Subjective Date of Service 02/24/25 Chief Complaint Chemotherapy education- FOLFIRINOX History of Present Illness 69-year-old gentleman who [...] cyst. January 13, 2025 ERCP: Findings: The hospital product specialist film was normal. The esophagus was successfully [...] bile duct was explored endoscopically using the Skytap direct visualization system. The SpyScope was advanced to the right intrahepatic duct(s). Visibility with the scope was good. The lumen of the middle third of the main bile duct was severely narrowed. The middle third of the main bile duct contained a single localized stenosis 6 mm in length. The middle third of the main bile duct was biopsied with a One97 [employer] miniature biopsy forceps for histology. One 10 [...] upper third of the main bile duct, (more content not included)... Normal [facility] Surgery Visit Reporton 02-24 Surgery Visit Report [facility] [address] [place] [address] OFFICE VISIT Date of Service: 02/24/25 MR#: [id number] Acct: [id number] Name: ERICK GAUTAM Rep #: [id number] : 1955 Provider: Dr. Freeman elkins MD Age/Sex: 69/M Location: [facility] Status: Signed Intake Vital Signs 02/21/25 13:42 02/24/25 12:05 02/24/25 13:37 Height 5 ft 11 in 5 ft 11 in 5 ft 11 in Weight: 180 lb 182 lb 2 oz BMI 25.1 25.4 BP 116/69 135/75 H Blood Pressure Location Lt brachial Rt brachial Position Sitting Sitting Respiration 18 18 Pulse 86 85 Pulse Source Monitor Monitor Temp 98.7 F 97.8 F Temp Source Temporal Pulse Oximetry (%) 99 99 Oxygen Delivery Method room air room air Intake Visit Reasons: PORT PLACEMENT Chief Complaint: port placement Accompanied by: Is patient in pain?: No Allergies No Known Allergies Allergy (Verified 02/24/25 12:06) Medications ???Medication ???Instructions ???Recorded ???Confirmed ???Type metformin 500 mg tablet 500 mg PO BID 01/20/25 02/24/25 Hi story insulin glargine-yfgn 100 unit/mL 18 unit subcut QHS 02/21/2502/24 History (3 mL) subcutaneous pen sxqaar-xztdmsri-logoqwu 2 cap PO QAC 02/21/25 02/24/25 His tory 12,000-38,000-60,000 unit capsule,delayed rel (Creon) sitagliptin phosphate 50 mg tablet 50 mg PO QDAY 02/21/25 02/24/25 History (Yasiruvia) lidocaine-prilocaine 2.5 %-2.5 % 1 applic topical ONCE PRN port 02/1102/24/25 Rx topical cream access 30 days #30 grams ondansetron 8 mg disintegrating 8 mg PO Q8H PRN nausea and 5 02/24/25 Rx tablet vomiting #30 tabs prochlorperazine maleate 10 mg 10 mg PO Q6H PRN nausea and 02/24/25 Rx tablet vomiting #30 tabs Have you fallen in the past year?: No PFSH Medical History Encounter for education Wears glasses Arthritis Dietary restriction Non-smoker Regional lymph node metastasis present Pancreas cancer Diabetes mellitus, type 2 Dilated pancreatic duct Dilated bile duct Jaundice Umbilical hernia Gallbladder problem Nausea RUQ pain Cataract Surgical History H/O arthroscopy of right knee H/O right inguinal hernia repair History of appendectomy Family History Uncle Diabetes Cancer Sister Diabetes Father Cancer Social History household members: spouse Smoking Status: Never smoker alcohol intake: never substance use type: does not use HPI HPI HPI: Patient is a 69-year-old male here with pancreatic cancer and need for port ROS General General: Yes weight change and [...] No wheezing Gastro Gastrointestinal: Yes abdominal pain, No nausea or vomiting, No diarrhea, No constipation, No blood in stool, No acid reflux, No hemorrhoids, No ulcers, No gallbladder problem and No black,tarry stools Christiano Hematologic: No blood thinners, No blood disorders, No bleeding, No anemia and No blood clots Neuro Neurologic: No numbness, No tingling and No weakness Exam Const General: cooperative Orientation: alert and oriented x3 HENMT Head: normal to inspection Neck Neck: normal visual inspection and full [...] Assessment and Plan Assessment and Plan (1) Pancreas cancer: Status: Acute Qualifiers: Pancreatic malignancy l (more content not included)... Normal [facility] Carbohydrate AG 19-9on 02-23 CA 19-9 350 U/mL High 0-35 [facility] Comment on above: Result Comment: [employer] Electrochemiluminescence Immunoassay (ECLIA) Values obtained with different assay methods or kits cannot be used interchangeably. Results cannot be interpreted as absolute evidence of the presence or absence of malignant disease. Performed at: [facility] [address] [id number] [employer] Engineer: Dylan Osorio PhD, Phone: [phone] Performed By: #### L 501.080 #### [facility] [address] [place], [address] Bone Scan Whole Bodyon 02-22 Bone Scan Whole Body [facility] [address] [place] [address] Bone Scan Whole Body MR#: [id number] Acct: [id number] Name: ERICK GAUTAM Rep #: [id number] : 1955 M 69 From: Sam Acosta PCP: Dr. Belle Monk MD Status: REG CLI Study: Bone Scan Whole Body Date of Exam: 02/22/25 Exam# [id number] Ordering Dr: Petra Sawyer MD PROCEDURE: BONE SCAN WHOLE BODY 02/22/2025 REASON FOR EXAM: PANCREATIC CA TECHNIQUE: Delayed anterior and posterior whole-body bone scan after radiopharmaceutical administration RADIOPHARMACEUTICAL: 20 mCi Technetium-99m MDP IV COMPARISON: None. FINDINGS: Degenerative changes are seen in the bilateral acromioclavicular joints, bilateral knees,, bilateral 1st carpal-metacarpal joints, and to a lesser extent the spine, elbows, wrists, feet, and sternoclavicular joints. No findings are seen to suggest the presence of osseous metastatic disease. NM/Bone Scan Whole Body IMPRESSION: 1. No scintigraphic evidence of osseous metastatic disease. 2. Degenerative changes as noted. Reading Location: [place] [address] CC: Dr. Belle Monk MD; Dr. Petra Sawyer MD [employer] Engineer: Signed Normal [facility] Absolute lymphocyte countOrd ered By: Petra Sawyer on 02-21-2025 Lymphocytes Auto (Unsp spec) [#/Vol] 1.48 10*3/uL 0.83-4.51 [facility] Absolute neutrophil countOrd ered By: Petra Sawyer on 02-21-2025 Neutrophils (Bld) [#/Vol] 3.0 10*3/uL 2.0-7.7 [facility] Anion gap in Serum or Plasma Ordered By: Petra Sawyer on 02-21-2025 Anion gap [Moles/Vol] 12 mmol/L 5-15 [facility] Automated lymphocyte count a s percentage of total leukocytesOrdered By: Petra Sawyer on 02-21-2025 Lymphocytes/100 WBC Auto (Unsp spec) 29.4 % 19-41 [facility] BUN/creatinine ratioOrdered By: Petra Digna on 02-21-2025 Urea nitrogen/Creatinine [Mass ratio] 35.7 mg/mg High 10-20 [facility] Basophil percentageOrdered B y: Petra Digna on 02-21-2025 Basophils/100 WBC (Bld) 0.2 % 0-1 [facility] Bilirubin, totalOrdered By: Petra Sawyer on 02-21-2025 Bilirubin [Mass/Vol] 0.78 mg/dL 0.00-1.30 [facility] CA 19-9 agOrdered By: Meche Sawyer on 02-21-2025 CA 19-9 ag 350 U/mL High 0-35 [facility] Comment on above: [employer] El ectrochemiluminescence Immunoassay(ECLIA)Values obtained with different assay methods or kits cannotbe used interchangeably. Results cannot be interpreted asabsolute evidence of the presence or absence of malignantdisease.Performed at: [place] [id number] Director: Dylan Osorio PhD, Phone: [phone] CBC W/Diff, Automatedon Absolute Lymph 1.48 X10 3/uL Normal 0.83-4.51 [facility] Comment on above: Performed By: #### L 3100.5020, L501.5200, L100.0100, L501.2300, L500.4050 ####[facility] [address] [place], [address] Absolute Neut 3.0 X10 3/uL Normal 2.0-7.7 [facility] Comment on above: Performed By: #### L 3100.5020, L501.5200, L100.0100, L501.2300, L500.4050 ####[facility] [address] [place], [address] Basophils/100 WBC (Bld) 0.2 % Normal 0-1 [facility] Comment on above: Performed By: #### L 3100.5020, L501.5200, L100.0100, L501.2300, L500.4050 ####[facility] [address] [place], [address] Eosinophils/100 WBC (Bld) 3.0 % Normal 0-5 [facility] Comment on above: Performed By: #### L 3100.5020, L501.5200, L100.0100, L501.2300, L500.4050 ####[facility] [address] [place], [address] Erythrocyte distribution width (RBC) [Ratio] 13.9 % Normal 11.6-14.6 [facility] Comment on above: Performed By: #### L 3100.5020, L501.5200, L100.0100, L501.2300, L500.4050 ####[facility] [address] [place], [address] Hematocrit (Bld) [Volume fraction] 38.8 % Low 40-54 [facility] Comment on above: Performed By: #### L 3100.5020, L501.5200, L100.0100, L501.2300, L500.4050 ####[facility] [address] [place], [address] Hemoglobin (Bld) [Mass/Vol] 13.5 g/dL Normal 13.0-16.5 [facility] Comment on above: Performed By: #### L 3100.5020, L501.5200, L100.0100, L501.2300, L500.4050 ####[facility] [address] [place], [address] IG% 0.200 Normal 0.0-0.9 [facility] Comment on above: Result Comment: IG% - Immature Granulocytes (promyelocytes, myelocytes and metamyelocytes) > 1% indicates that a LEFT SHIFT is Present. Performed By: #### L 3100.5020, L501.5200, L100.0100, L501.2300, L500.4050 ####[facility] [address] [place], [address] Lymphocytes/100 WBC (Bld) 29.4 % Normal 19-41 [facility] Comment on above: Performed By: #### L 3100.5020, L501.5200, L100.0100, L501.2300, L500.4050 ####[facility] [address] [place], [address] MCH (RBC) [Entitic mass] 29.5 pg Normal 27.0-32.0 [facility] Comment on above: Performed By: #### L 3100.5020, L501.5200, L100.0100, L501.2300, L500.4050 ####[facility] [address] [place], [address] MCHC (RBC) [Mass/Vol] 34.8 g/dL Normal 32-36 [facility] Comment on above: Performed By: #### L 3100.5020, L501.5200, L100.0100, L501.2300, L500.4050 ####[facility] [address] [place], [address] MCV (RBC) [Entitic vol] 84.7 fL Normal 80-94 [facility] Comment on above: Performed By: #### L 3100.5020, L501.5200, L100.0100, L501.2300, L500.4050 ####[facility] [address] [place], [address] Monocytes/100 WBC (Bld) 7.8 % Normal 0-10 [facility] Comment on above: Performed By: #### L 3100.5020, L501.5200, L100.0100, L501.2300, L500.4050 ####[facility] [address] [place], [address] Neutrophils/100 WBC (Bld) 59.4 % Normal 47-70 [facility] Comment on above: Performed By: #### L 3100.5020, L501.5200, L100.0100, L501.2300, L500.4050 ####[facility] [address] [place], [address] Nucleated RBC (Bld) [#/Vol] 0 10*3/uL Normal 0-5 [facility] Comment on above: Performed By: #### L 3100.5020, L501.5200, L100.0100, L501.2300, L500.4050 ####[facility] [address] [place], [address] Platelet mean volume (Bld) [Entitic vol] 8.8 fL Normal 6.2-12.0 [facility] Comment on above: Performed By: #### L 3100.5020, L501.5200, L100.0100, L501.2300, L500.4050 ####[facility] [address] [place], [address] Platelets (Bld) [#/Vol] 210 10*3/uL Normal 150-450 [facility] Comment on above: Performed By: #### L 3100.5020, L501.5200, L100.0100, L501.2300, L500.4050 ####[facility] [address] [place], [address] RBC (Bld) [#/Vol] 4.58 10*6/uL Low 4.6-6.2 [facility] Comment on above: Performed By: #### L 3100.5020, L501.5200, L100.0100, L501.2300, L500.4050 ####[facility] [address] [place], [address] RDW SD 42.5 fl Normal 35.1-43.9 [facility] Comment on above: Performed By: #### L 3100.5020, L501.5200, L100.0100, L501.2300, L500.4050 ####[facility] [address] [place], [address] WBC (Bld) [#/Vol] 5.0 10*3/uL Normal 4.4-11.0 [facility] Comment on above: Performed By: #### L 3100.5020, L501.5200, L100.0100, L501.2300, L500.4050 ####[facility] [address] [place], [address] Carbon dioxide, total [Moles /volume] in Central venous bloodOrdered By: Petra Sawyer on 02-21-2025 CO2 [Moles/Vol] 24.2 mmol/L 21.0-32.0 [facility] Chloride assayOrdered By: Yovani Sawyer on 02-21-2025 Chloride [Moles/Vol] 100 mmol/L 98-108 [facility] Comprehensive Metabolic Prof ilon 02-21-2025 Albumin [Mass/Vol] 4.3 g/dL Normal 3.4-4.8 [facility] Comment on above: Performed By: #### L 3100.5020, L501.5200, L100.0100, L501.2300, L500.4050 ####[facility] [address] [place], [address] Albumin/Globulin [Mass ratio] 1.6 {ratio} Normal 0.9-2.4 [facility] Comment on above: Performed By: #### L 3100.5020, L501.5200, L100.0100, L501.2300, L500.4050 ####[facility] [address] [place], [address] ALK PHOS 120 U/L Normal 40-129 [facility] Comment on above: Performed By: #### L 3100.5020, L501.5200, L100.0100, L501.2300, L500.4050 ####[facility] [address] [place], [address] ALT [Catalytic activity/Vol] 21 U/L Normal <=46 [facility] Comment on above: Performed By: #### L 3100.5020, L501.5200, L100.0100, L501.2300, L500.4050 ####[facility] [address] [place], [address] AST [Catalytic activity/Vol] 16 U/L Normal <=37 [facility] Comment on above: Performed By: #### L 3100.5020, L501.5200, L100.0100, L501.2300, L500.4050 ####[facility] [address] [place], [address] Bilirubin [Mass/Vol] 0.78 mg/dL Normal 0.00-1.30 [facility] Comment on above: Performed By: #### L 3100.5020, L501.5200, L100.0100, L501.2300, L500.4050 ####[facility] [address] [place], [address] BUN/CRE 35.7 RATIO High 10-20 [facility] Comment on above: Performed By: #### L 3100.5020, L501.5200, L100.0100, L501.2300, L500.4050 ####[facility] [address] [place], [address] Calcium [Mass/Vol] 9.1 mg/dL Normal 7.6-11.0 [facility] Comment on above: Performed By: #### L 3100.5020, L501.5200, L100.0100, L501.2300, L500.4050 ####[facility] [address] [place], [address] Chloride [Moles/Vol] 100 mmol/L Normal 98-108 [facility] Comment on above: Performed By: #### L 3100.5020, L501.5200, L100.0100, L501.2300, L500.4050 ####[facility] [address] [place], [address] CO2 [Moles/Vol] 24.2 mmol/L Normal 21.0-32.0 [facility] Comment on above: Performed By: #### L 3100.5020, L501.5200, L100.0100, L501.2300, L500.4050 ####[facility] [address] [place], [address] Creatinine [Mass/Vol] 0.81 mg/dL Normal 0.70-1.20 [facility] Comment on above: Performed By: #### L 3100.5020, L501.5200, L100.0100, L501.2300, L500.4050 ####[facility] [address] [place], [address] ECRCL 91.67 ml/min Normal 50-250 [facility] Comment on above: Performed By: #### L 3100.5020, L501.5200, L100.0100, L501.2300, L500.4050 ####[facility] [address] [place], [address] GAP 12 Normal 5-15 [facility] Comment on above: Performed By: #### L 3100.5020, L501.5200, L100.0100, L501.2300, L500.4050 ####[facility] [address] [place], [address] GFR/1.73 sq M.predicted among non-blacks MDRD (S/P/Bld) [Vol rate/Area] 96 mL/min/{1.73_m2} Normal >60 [facility] Comment on above: Result Comment: mL/m in/1.73m2 CKD-EPI Creatinine Equation (2020) Performed By: #### L 3100.5020, L501.5200, L100.0100, L501.2300, L500.4050 ####[facility] [address] [place], [address] Globulin (S) [Mass/Vol] 2.7 g/dL Normal 2.2-4.2 [facility] Comment on above: Performed By: #### L 3100.5020, L501.5200, L100.0100, L501.2300, L500.4050 ####[facility] [address] [place], [address] Glucose [Mass/Vol] 395 mg/dL High 70-99 [facility] Comment on above: Performed By: #### L 3100.5020, L501.5200, L100.0100, L501.2300, L500.4050 ####[facility] [address] [place], [address] Potassium [Moles/Vol] 4.5 mmol/L Normal 3.3-5.1 [facility] Comment on above: Performed By: #### L 3100.5020, L501.5200, L100.0100, L501.2300, L500.4050 ####[facility] [address] [place], [address] Sodium [Moles/Vol] 136 mmol/L Normal 133-145 [facility] Comment on above: Performed By: #### L 3100.5020, L501.5200, L100.0100, L501.2300, L500.4050 ####[facility] [address] [place], [address] T PROT 6.9 g/dL Normal 5.9-8.4 [facility] Comment on above: Performed By: #### L 3100.5020, L501.5200, L100.0100, L501.2300, L500.4050 ####[facility] [address] [place], [address] Urea nitrogen [Mass/Vol] 29 mg/dL High 4-19 [facility] Comment on above: Performed By: #### L 3100.5020, L501.5200, L100.0100, L501.2300, L500.4050 ####[facility] [address] [place], [address] Eosinophil percentageOrdered By: Petra Sawyer on 02-21-2025 Eosinophils/100 WBC (Bld) 3.0 % 0-5 [facility] Erythrocyte distribution wid th ratioOrdered By: [facility] Saw[facility] on 02-21-2025 Erythrocyte distribution width (RBC) [Ratio] 13.9 % 11.6-14.6 [facility] Erythrocyte distribution wid th standard deviationOrdered By: [facility] Sawyer on 02-21-2025 Erythrocyte distribution width (RBC) [Ratio] 42.5 fl 35.1-43.9 [facility] Glomerular filtration rate ( GFR) estimation/1.73 sq m using serum, plasma, or whole bOrdered By: Petra Sawyer on 02-21-2025 GFR/1.73 sq M.predicted among non-blacks MDRD (S/P/Bld) [Vol rate/Area] 96 mL/min/{1.73_m2} >60 [facility] Comment on above: mL/min/1.73m2 CKD-EP I Creatinine Equation (2020) Hematocrit Auto (Bld) [Volum e fraction]Ordered By: Petra Sawyer on 02-21-2025 Hematocrit (Bld) [Volume fraction] 38.8 % Low 40-54 [facility] Hemoglobin measurementOrdere d By: Petra Sawyer on 02-21-2025 Hemoglobin (Bld) [Mass/Vol] 13.5 g/dL 13.0-16.5 [facility] Immature granulocytes/100 WB C Auto (Bld)Ordered By: Petra Sawyer on 02-21-2025 Immature granulocytes/100 WBC (Bld) 0.200 % 0.0-0.9 [facility] Comment on above: IG% - Immature Granu locytes (promyelocytes, myelocytes and metamyelocytes) > 1% indicates that a LEFT SHIFT is Present. Laboratory - Chemistry and C hemistry - challengeOrdered By: [facility] Sawyer on 02-21-2025 AST [Catalytic activity/Vol] 16 U/L <38 [facility] MCV (mean corpuscular volume ) determinationOrdered By: [facility] Sawyer on 02-21-2025 MCV (RBC) [Entitic vol] 84.7 fL 80-94 [facility] Magnesiumon 02-21-2025 Magnesium [Mass/Vol] 2.3 mg/dL High 1.5-2.2 [facility] Comment on above: Performed By: #### L 501.080 #### [facility] [address] [place] [address], [address] Magnesium measurement (mass/ volume)Ordered By: Petra Sawyer on 02-21-2025 Magnesium (Unsp spec) [Mass/Vol] 2.3 mg/dL High 1.5-2.2 [facility] Mean corpuscular hemoglobin (MCH) determinationOrdered By: Petra Sawyer on 02-21-2025 MCH (RBC) [Entitic mass] 29.5 pg 27.0-32.0 [facility] Mean corpuscular hemoglobin concentration (MCHC) determinationOrdered By: Petra Sawyer on 02-21-2025 MCHC (RBC) [Mass/Vol] 34.8 g/dL 32-36 [facility] Mean platelet volume determi nationOrdered By: Petra Sawyer on 02-21-2025 Platelet mean volume (Bld) [Entitic vol] 8.8 fL 6.2-12.0 [facility] Monocyte percentageOrdered B y: Petra Sawyer on 02-21-2025 Monocytes/100 WBC (Bld) 7.8 % 0-10 [facility] Neutrophil percentageOrdered By: Petra Sawyer on 02-21-2025 Neutrophils/100 WBC (Bld) 59.4 % 47-70 [facility] Nucleated red blood cell per centageOrdered By: Petra Sawyer on 02-21-2025 Nucleated RBC/100 WBC (Bld) [Ratio] 0 % 0-5 [facility] Oncology Visit Reporton Oncology Visit Report [facility] [address] [place] [address] OFFICE VISIT Date of Service: 02/21/25 1342 MR#: [id number] Acct: [id number] Name: ERICK GAUTAM Rep #: [id number] : 1955 From: Petra Sawyer MD Age/Sex: 69/M Location[place] [facility] Status: Signed HPI Subjective Date of Service 02/21/25 Chief Complaint Abdominal pain History of Present [...] cyst. January 13, 2025 ERCP: Findings: The hospital product specialist film was normal. The esophagus was successfully [...] bile duct was explored endoscopically using the Skytap direct visualization system. The SpyScope was advanced to the right intrahepatic duct(s). Visibility with the scope was good. The lumen of the middle third of the main bile duct was severely narrowed. The middle third of the main bile duct contained a single localized stenosis 6 mm in length. The middle third of the main bile duct was biopsied with a [employer] miniature biopsy forceps for histology. One 10 [...] right hepati (more content not included)... Normal [facility] Phosphoruson 02-21-2025 Phosphate [Mass/Vol] 3.6 mg/dL Normal 2.7-4.5 [facility] Comment on above: Performed By: #### L 3100.5020, L501.5200, L100.0100, L501.2300, L500.4050 ####[facility] [address] [place], [place], [id number] Platelet countOrdered By: Yovani Sawyer on 02-21-2025 Platelets (Bld) [#/Vol] 210 10*3/uL 150-450 [facility] Potassium measurement (mass/ volume)Ordered By: Petra Sawyer on 02-21-2025 Potassium (Unsp spec) [Mass/Vol] 4.5 mmol/L 3.3-5.1 [facility] RBC Auto (Bld) [#/Vol]Ordere d By: Petra Sawyer on 02-21-2025 RBC (Bld) [#/Vol] 4.58 10*6/uL Low 4.6-6.2 [facility] Serum creatinine measurement (mass/volume)Ordered By: Petra Sawyer on 02-21-2025 Creatinine [Mass/Vol] 0.81 mg/dL 0.70-1.20 [facility] Serum globulin measurementOr dered By: Petra Sawyer on 02-21-2025 Globulin (S) [Mass/Vol] 2.7 g/dL 2.2-4.2 [facility] Serum glucose measurement (m ass/volume)Ordered By: Petra Sawyer on 02-21-2025 Glucose [Mass/Vol] 395 mg/dL High 70-99 [facility] Serum or plasma alanine ordoñez otransferase (ALT) measurementOrdered By: Petra Sawyer on 02-21-2025 ALT [Catalytic activity/Vol] 21 U/L <47 [facility] Serum or plasma albumin jenny urement (mass/volume)Ordered By: Petra Sawyer on 02-21-2025 Albumin [Mass/Vol] 4.3 g/dL 3.4-4.8 [facility] Serum or plasma albumin/glob ulin mass ratioOrdered By: Petra Sawyer on 02-21-2025 Albumin/Globulin [Mass ratio] 1.6 {ratio} 0.9-2.4 [facility] Serum or plasma alkaline mitzi sphatase measurementOrdered By: Petra Sawyer on 02-21-2025 ALP [Catalytic activity/Vol] 120 U/L 40-129 [facility] Serum or plasma calcium jenny urement (mass/volume)Ordered By: Petra Sawyer on 02-21-2025 Calcium [Mass/Vol] 9.1 mg/dL 7.6-11.0 [facility] Serum or plasma urea nitroge n measurement (mass/volume)Ordered By: Petra Sawyer on 02-21-2025 Urea nitrogen [Mass/Vol] 29 mg/dL High 4-19 [facility] Sodium levelOrdered By: Osman Sawyer on 02-21-2025 Sodium [Moles/Vol] 136 mmol/L 133-145 [facility] Total proteinOrdered By: Oswald Sawyer on 02-21-2025 Protein [Mass/Vol] 6.9 g/dL 5.9-8.4 [facility] White blood cell (WBC) count Ordered By: Petra Sawyer on 02-21-2025 WBC (Bld) [#/Vol] 5.0 10*3/uL 4.4-11.0 [facility] CYTOLOGY, NON-GYNon 02-19-20 CYTOLOGIC DIAGNOSIS [facility] Comment on above: Result Comment: A. 2 ND OPINION CONSULTATION, CYTOLOGY - Common BIle Duct, Mid Portion, Brushings ( Collected 01/13/2025): FINAL DIAGNOSIS: No Malignant Cells Are Identified at 1505 EDT Performed By: #### N ONGNFEDERICOFNA #### [facility] (DEFAULT) [address] [place] [address] Case Report [facility] Comment on above: Result Comment: [facility] Cytology Report Case: [id number] Authorizing Provider: Baldomero Alejo MD Collected: 02/18/2025 09:00 AM Ordering Location: [facility] Received: 02/18/2025 08:58 AM [facility] Specimen: COMMON BILE DUCT BRUSHING, Common BIle Duct, Mid Portion, Brushings ( Collected 01/13/2025) Performed By: #### N ONGNNONFNA #### [facility] (DEFAULT) [address] [place] [address] Clinical History A 69 year old male presents with a review of slides from an outside facility. Jaundice, dilated bile duct, dilated pancreatic duct, right upper quadrant pain, diabetes mellitus, type 2 [facility] Comment on above: Performed By: #### N ONGNNONFNA #### [facility] (DEFAULT) [address] [address] Gross Description [facility] Comment on above: Result Comment: Subm itted from [facility], [address] [place] [address] are six (6) slides labeled [id number]. An identifying pathology report is included. Outside slides are returned in sixty (60) days under separate cover with our number recorded on them. Performed By: #### N ONGNNONFNA #### [facility] (DEFAULT) [address] [address] Professional Interpretation Performed at: [facility] Comment on above: Result Comment: For Immediate Release to Patient's MyChart? Yes [facility] [address] [address] Performed By: #### N ONGNNONFNA #### [facility] (DEFAULT) [address] [place] [address] ERCPon 02-04-2025 [facility] Gastroenterology Patient Name: Erick Gautam Procedure Date: 02/04/2025 1:23 PM Date of : 1955 Admit Type: Outpatient Age: 69 Room: ENDO [place] [address] Gender: Male Note Status: Finalized Attending MD: Baldomero Clemons MD, [id number] Procedure: ERCP Indications: Elevated liver enzymes, Malignant [...] the physician, the nurse, the anesthesiologist, the gear hobber set up operator and the manufacturing maintenance technician in the procedure room. Mental Status [...] A biliary stent was visible on the hospital product specialist film. The esophagus was successfully intubated under [...] branches (more content not included)... LAB, [facility] GLUCOSE POCon 02-04-2025 Glucose [Mass/Vol] 229 mg/dL High 70 - 179 mg/dL [facility] Interpretation and review of laboratory results Abnormal [facility] POC Sample Type CAPBL [facility] Test performed at ad dress of the patient encounter. [facility] Glucose [Mass/Vol] 273 mg/dL High 70 - 179 mg/dL [facility] Interpretation and review of laboratory results Abnormal [facility] POC Sample Type VENO [facility] Test performed at ad dress of the patient encounter. [facility] No Panel Informationon 02-04 Radiology Study observation (narrative) [facility] SURG PATH REQUESTon 02-05-20 Case Report [facility] Comment on above: Result Comment: Surg ical Pathology Report Case: [id number] Authorizing Provider: Baldomero Clemons MD Collected: 02/04/2025 01:58 PM Ordering Location: [facility] Endoscopy Received: 02/04/2025 04:03 PM Pathologist: Zuleima Pierson MD Specimen: TISSUE BIOPSY, FNB Pancreatic head mass Performed By: #### S URGP #### [facility] (DEFAULT) [address] [place] [address] Clinical History Bile duct obstructio n [K83.1]. Medical History: Type 2 diabetes mellitus. Cataracts, bilateral. Bile duct obstruction. Normal [facility] Comment on above: Performed By: #### S URGP #### [facility] (DEFAULT) [address] [place] [address] Gross Description Normal [facility] Comment on above: Result Comment: The [...] cores A2, aggregate Lab Use Only: JobID [id number] Grosser for this case was: Jacquie Arriaza Performed By: #### S URGP #### [facility] (DEFAULT) [address] [place] [address] Microscopic Description Normal [facility] Comment on above: Result Comment: A mi croscopic examination was performed. All controls show appropriate reactivity. All immunohistochemistry (IHC), in situ hybridization (HEBER), and histochemical tests were developed by and are performed at the [facility] Clinical Laboratory, Histology and IHC Lab, [address] [place] [address], [place] [address]. All Immunofluorescent (IF) tests were developed by and are performed at the [facility] Clinical Laboratory, Renal Division, [address] [place] [address]. All tests reported here, except for PD-L1, have not been cleared by or approved by the [place] Food and Drug Administration (FDA). The laboratory is regulated under CLIA as qualified to perform high-complexity testing. The tests are used for clinical purposes. They should not be regarded as investigational or for research. Performed By: #### S URGP #### [facility] (DEFAULT) [address] [place] [address] Pathologic Diagnosis [facility] Comment on above: Result Comment: A. [...] EDT Performed By: #### S URGP #### [facility] (DEFAULT) [address] [place] [address] Professional Interpretation Performed at: [facility] Comment on above: Result Comment: [facility] For Immediate Release to Patient's [facility]? Yes [address] [place] [address] Performed By: #### S URGP #### [facility] (DEFAULT) [address] [place] [address] 02-04-2025 [facility] Gastroenterology Patient Name: Erick Gautam Procedure Date: 02/04/2025 1:25 PM Date of : 1955 Admit Type: Outpatient Age: 69 Room: ERCP [place] [address] Gender: Male Note Status: Finalized Attending MD: Baldomero Clemons MD, [id number] Procedure: Upper EUS Indications: Abnormal abdominal/pelvic CT scan, Elevated liver enzymes Providers: Baldomero Clemons MD (Doctor), Claudia Hobbs RN (Nurse), Daisy Razo, RN (Nurse), MARIA A Kate (Anesthesia Staff) [...] the physician, the nurse, the anesthesiologist, the gear hobber set up operator and the manufacturing maintenance technician in the procedure room. Mental Status [...] nodes we (more content not included)... LAB, [facility] CA 19-9on 01-27-2025 CA 19-9 255.35 U/mL High <=37.00 [facility] Comment on above: Result Comment: This test was performed on the [employer] IM Immunoassay platform which is a 2-step sandwich chemiluminescent immunoassay. It is important to note that assays using different manufacturers and/or methods may not be comparable. Performed By: #### C A199 #### [facility] (DEFAULT) [address] [place] [address] CBC AND ELECTRONIC DIFFon Basophils (Bld) [#/Vol] K/uL 0.00 - 0.09 K/uL [facility] Basophils/100 WBC (Bld) 0 % [facility] Differential cell count method Nom (Bld) Electronic Differential [facility] Eosinophils (Bld) [#/Vol] 0.09 10*3/uL 0.00 - 0.48 K/uL [facility] Eosinophils/100 WBC (Bld) 2.4 % [facility] Erythrocyte distribution width (RBC) [Ratio] 13.2 % 10.9 - 14.3 % [facility] Hematocrit (Bld) [Volume fraction] 38.1 % Low 39.6 - 48.8 % [facility] Hemoglobin (Bld) [Mass/Vol] 13.1 g/dL Low 13.4 - 16.8 g/dL [facility] Immature granulocytes (Bld) [#/Vol] K/uL NINF - 0.07 K/uL [facility] Immature granulocytes/100 WBC (Bld) 0.3 % [facility] Interpretation and review of laboratory results Abnormal [facility] Lymphocytes (Bld) [#/Vol] 0.75 10*3/uL Low 0.83 - 3.57 K/uL [facility] Lymphocytes/100 WBC (Bld) 19.8 % [facility] MCH (RBC) [Entitic mass] 29.5 pg 26. 1 - 33.3 pg [facility] MCHC (RBC) [Mass/Vol] 34.4 g/dL 31.9 - 36.5 g/dL [facility] MCV (RBC) [Entitic vol] 85.8 fL 79.0 - 94.5 fL [facility] Monocytes (Bld) [#/Vol] 0.37 10*3/uL 0.24 - 0.93 K/uL [facility] Monocytes/100 WBC (Bld) 9.8 % [facility] Neutrophils (Bld) [#/Vol] 2.56 10*3/uL 1.57 - 6.19 K/uL [facility] Nucleated RBC/100 WBC (Bld) [Ratio] 0 % [facility] Platelet mean volume (Bld) [Entitic vol] 9.1 fL 8.7 - 12.3 fL [facility] Platelets (Bld) [#/Vol] 233 10*3/uL 146 - 337 K/uL [facility] RBC (Bld) [#/Vol] 4.44 10*6/uL [facility] Seg[facility] neutrophils/100 WBC (Bld) 67.7 % [facility] WBC (Bld) [#/Vol] 3.78 10*3/uL 3.73 - 10.10 K/uL [facility] Abs Baso Auto < Normal 0.00-0.09 [facility] Comment on above: Performed By: #### L [id number] #### [facility] (DEFAULT) [address] [address] Basophils/100 WBC (Bld) 0.0 % Normal O [facility] Comment on above: Performed By: #### L [id number] #### [facility] (DEFAULT) [address] [address] DIFF STATUS Electronic Differential Normal [facility] Comment on above: Performed By: #### L [id number] #### [facility] (DEFAULT) [address] [address] Eosinophils (Bld) [#/Vol] 0.09 10*3/uL Normal 0.00-0.48 [facility] Comment on above: Performed By: #### L [id number] #### [facility] (DEFAULT) [address] [address] Eosinophils/100 WBC (Bld) 2.4 % Normal [facility] Comment on above: Performed By: #### L [id number] #### [facility] (DEFAULT) [address] [address] Hematocrit (Bld) [Volume fraction] 38.1 % Low 39.6-48.8 [facility] Comment on above: Performed By: #### L [id number] #### [facility] (DEFAULT) [address] [address] Hemoglobin (Bld) [Mass/Vol] 13.1 g/dL Low 13.4-16.8 [facility] Comment on above: Performed By: #### L [id number] #### [facility] (DEFAULT) [address] [address] Immature Grans % 0.3 % Normal [facility] Comment on above: Performed By: #### L [id number] #### [facility] (DEFAULT) [address] [address] Immature Grans Absolute < Normal <=0.07 O [facility] Comment on above: Performed By: #### L [id number] #### [facility] (DEFAULT) [address] [place] [address] Lymphocytes (Bld) [#/Vol] 0.75 10*3/uL Low 0.83-3.57 [facility] Comment on above: Performed By: #### L [id number] #### [facility] (DEFAULT) [address] [place] [address] Lymphocytes/100 WBC (Bld) 19.8 % Normal [facility] Comment on above: Performed By: #### L [id number] #### [facility] (DEFAULT) [address] [place] [address] MCV (RBC) [Entitic vol] 85.8 fL Normal 79.0-94.5 [facility] Comment on above: Performed By: #### L [id number] #### [facility] (DEFAULT) [address] [place] [address] Mean Cell Hgb 29.5 pg Normal 26.1-33.3 [facility] Comment on above: Performed By: #### L [id number] #### [facility] (DEFAULT) [address] [place] [address] Mean Cell Hgb Conc 34.4 g/dL Normal 31.9-36.5 [facility] Comment on above: Performed By: #### L [id number] #### [facility] (DEFAULT) [address] [place] [address] Monocytes (Bld) [#/Vol] 0.37 10*3/uL Normal 0.24-0.93 [facility] Comment on above: Performed By: #### L [id number] #### [facility] (DEFAULT) [address] [place] [address] Monocytes/100 WBC (Bld) 9.8 % Normal O [facility] Comment on above: Performed By: #### L [id number] #### [facility] (DEFAULT) [address] [place] [address] Nucleated RBC 0.0 /100 WBC Normal <=0.2 [facility] Comment on above: Performed By: #### L [id number] #### [facility] (DEFAULT) [address] [place] [address] Platelet mean volume (Bld) [Entitic vol] 9.1 fL Normal 8.7-12.3 [facility] Comment on above: Performed By: #### L [id number] #### [facility] (DEFAULT) [address] [address] Platelets (Bld) [#/Vol] 233 10*3/uL Normal 146-337 [facility] Comment on above: Performed By: #### L [id number] #### [facility] (DEFAULT) [address] [place] [address] RBC (Bld) [#/Vol] 4.44 10*6/uL Normal 4.38-5.83 [facility] Comment on above: Performed By: #### L [id number] #### [facility] (DEFAULT) [address] [address] RBC Distribution 13.2 % Normal 10.9-14.3 [facility] Comment on above: Performed By: #### L [id number] #### [facility] (DEFAULT) [address] [address] Segs + Bands Auto 67.7 % Normal [facility] Comment on above: Performed By: #### L [id number] #### [facility] (DEFAULT) [address] [address] Segs + Bands,Absolute Auto 2.56 K/uL Normal 1.57-6.19 [facility] Comment on above: Performed By: #### L [id number] #### [facility] (DEFAULT) [address] [place] [address] WBC (Bld) [#/Vol] 3.78 10*3/uL Normal 3.73-10.10 [facility] Comment on above: Performed By: #### L [id number] #### [facility] (DEFAULT) [address] [place] [address] COMPREHENSIVE METABOLIC PANE Orestes 01-27-2025 Albumin [Mass/Vol] 3.9 g/dL Normal 3.5-5.0 [facility] Comment on above: Performed By: #### C MPN #### [facility] (DEFAULT) [address] [place] [address] ALP [Catalytic activity/Vol] 163 U/L High 32-126 [facility] Comment on above: Performed By: #### C MPN #### [facility] (DEFAULT) [address] [place] [address] ALT [Catalytic activity/Vol] 106 U/L High 10-52 [facility] Comment on above: Performed By: #### C MPN #### [facility] (DEFAULT) [address] [place] [address] Anion gap [Moles/Vol] 12 mmol/L Normal 7-17 [facility] Comment on above: Performed By: #### C MPN #### [facility] (DEFAULT) [address] [place] [address] AST [Catalytic activity/Vol] 56 U/L High 10-39 [facility] Comment on above: Performed By: #### C MPN #### [facility] (DEFAULT) [address] [place] [address] Bilirubin [Mass/Vol] 2.8 mg/dL High <1.5 [facility] Comment on above: Performed By: #### C MPN #### [facility] (DEFAULT) [address] [place] [address] Calcium [Mass/Vol] 9.4 mg/dL Normal 8.6-10.5 [facility] Comment on above: Performed By: #### C MPN #### [facility] (DEFAULT) [address] [place] [address] Chloride [Moles/Vol] 98 mmol/L Normal 98-108 [facility] Comment on above: Performed By: #### C MPN #### [facility] (DEFAULT) [address] [place] [address] CO2 [Moles/Vol] 28 mmol/L Normal 21-31 [facility] Comment on above: Performed By: #### C MPN #### [facility] (DEFAULT) [address] [place] [address] Creatinine [Mass/Vol] 0.66 mg/dL Low 0.70-1.30 [facility] Comment on above: Performed By: #### C MPN #### [facility] (DEFAULT) [address] [place] [address] eGFR, CKD-EPI, Male > Normal >=60 [facility] Comment on above: Result Comment: Repo rted eGFR is based on the CKD-EPI 2020 equation using creatinine, age, and sex. Performed By: #### C MPN #### [facility] (DEFAULT) [address] [place] [address] Glucose [Mass/Vol] 320 mg/dL High Nonfastin g : 70-179 mg/dL; Fastin-99 [facility] Comment on above: Performed By: #### C MPN #### [facility] (DEFAULT) [address] [place] [address] Osmolality [Osmolality] 299 mosm/kg Normal 278-305 [facility] Comment on above: Performed By: #### C MPN #### [facility] (DEFAULT) [address] [place] [address] Potassium [Moles/Vol] 3.9 mmol/L Normal 3.5-5.0 [facility] Comment on above: Performed By: #### C MPN #### [facility] (DEFAULT) [address] [place] [address] Protein [Mass/Vol] 7.1 g/dL Normal 6.4-8.3 [facility] Comment on above: Performed By: #### C MPN #### [facility] (DEFAULT) [address] [address] Sodium [Moles/Vol] 134 mmol/L Low 135-145 [facility] Comment on above: Performed By: #### C MPN #### [facility] (DEFAULT) [address] [address] Urea nitrogen [Mass/Vol] 23 mg/dL Normal 7-25 [facility] Comment on above: Performed By: #### C MPN #### [facility] (DEFAULT) [address] [address] Urea nitrogen/Creatinine [Mass ratio] 35 mg/mg Normal [facility] Comment on above: Performed By: #### C MPN #### [facility] (DEFAULT) [address] [address] Laboratory - Chemistry and C hemistry - challengeon 01-27-2025 Cancer Ag 19-9 Qn 255.35 [arb'U]/mL High NINF - 37.00 U/mL [facility] Comment on above: This test was perfor med on the [employer] IM Immunoassay platform which is a 2-step sandwich chemiluminescent immunoassay. It is important to note that assays using different manufacturers and/or methods may not be comparable. Albumin [Mass/Vol] 3.9 g/dL 3.5 - 5.0 g/dL [facility] ALP [Catalytic activity/Vol] 163 U/L High 32 - 126 U/L [facility] ALT [Catalytic activity/Vol] 106 U/L High 10 - 52 U/L [facility] Anion gap [Moles/Vol] 12 mmol/L 7 - 17 mmol/L [facility] AST [Catalytic activity/Vol] 56 U/L High 10 - 39 U/L [facility] Bilirubin [Mass/Vol] 2.8 mg/dL High NINF - 1.5 mg/dL [facility] Calcium [Mass/Vol] 9.4 mg/dL 8.6 - 10. 5 mg/dL [facility] Chloride [Moles/Vol] 98 mmol/L 98 - 10 8 mmol/L [facility] CO2 [Moles/Vol] 28 mmol/L 21 - 31 mmol/L [facility] Creatinine [Mass/Vol] 0.66 mg/dL Low 0.70 - 1.30 mg/dL [facility] Glucose [Mass/Vol] 320 mg/dL High 70 - 179 mg/dL [facility] Osmolality Calc [Osmolality] 299 [facility] Potassium [Moles/Vol] 3.9 mmol/L 3.5 - 5.0 mmol/L [facility] Protein [Mass/Vol] 7.1 g/dL 6.4 - 8.3 g/dL [facility] Sodium [Moles/Vol] 134 mmol/L Low 135 - 145 mmol/L [facility] Urea nitrogen [Mass/Vol] 23 mg/dL 7 - 25 mg/dL [facility] Urea nitrogen/Creatinine [Mass ratio] 35 mg/mg [facility] Laboratory - Coagulationon 0 01-27-2025 aPTT Coag (PPP) [Time] 26.8 s [facility] INR Coag (Bld) [Relative time] 1 {INR} 0.9 - 1.1 [facility] PT Coag (PPP) [Time] 12.7 s [facility] No Panel Informationon 01-27 Interpretation and review of laboratory results Abnormal [facility] eGFR, CKD-EPI, Male - PINF [facility] Comment on above: Reported eGFR is bas ed on the CKD-EPI 2020 equation using creatinine, age, and sex. Interpretation and review of laboratory results Abnormal [facility] Interpretation and review of laboratory results Normal [facility] PT,INR,PTTon 01-27-2025 aPTT Coag (Bld) [Time] 26.8 s Normal 24.0-34.3 [facility] Comment on above: Performed By: #### P TPTT #### [facility] (DEFAULT) [address] [place] [address] INR Coag (PPP) [Relative time] 1.0 {INR} Normal 0.9-1.1 [facility] Comment on above: Performed By: #### P TPTT #### [facility] (DEFAULT) [address] [place] [address] PT Coag (PPP) [Time] 12.7 s Normal 11.9-14.2 [facility] Comment on above: Performed By: #### P TPTT #### [facility] (DEFAULT) [address] [place] [address] Absolute lymphocyte countOrd ered By: Petra Sawyer on 01-20-2025 Lymphocytes Auto (Unsp spec) [#/Vol] 0.94 10*3/uL 0.83-4.51 [facility] Absolute neutrophil countOrd ered By: Petra Sawyer on 01-20-2025 Neutrophils (Bld) [#/Vol] 3.2 10*3/uL 2.0-7.7 [facility] Anion gap in Serum or Plasma Ordered By: Petra Sawyer on 01-20-2025 Anion gap [Moles/Vol] 10 mmol/L 5-15 [facility] Automated lymphocyte count a s percentage of total leukocytesOrdered By: Petra Sawyer on 01-20-2025 Lymphocytes/100 WBC Auto (Unsp spec) 20.1 % 19-41 [facility] BUN/creatinine ratioOrdered By: Petra Sawyer on 01-20-2025 Urea nitrogen/Creatinine [Mass ratio] 26.5 mg/mg High 10-20 [facility] Basophil percentageOrdered B y: Petra Sawyer on 01-20-2025 Basophils/100 WBC (Bld) 0.4 % 0-1 [facility] Bilirubin directOrdered By: Petra Sawyer on 01-20-2025 Bilirubin.direct [Mass/Vol] 2.88 mg/dL High 0.00-0.30 [facility] Bilirubin, Directon 01-21-20 25 Bilirubin.direct [Mass/Vol] 2.88 mg/dL High 0.00-0.30 [facility] Comment on above: Performed By: #### L 501.080 #### [facility] [address] [place], [address] Bilirubin, totalOrdered By: Petra Sawyer on 01-20-2025 Bilirubin [Mass/Vol] 3.95 mg/dL High 0.00-1.30 [facility] CBC W/Diff, Automatedon Absolute Lymph 0.94 X10 3/uL Normal 0.83-4.51 [facility] Comment on above: Performed By: #### L 501.080 #### [facility] [address] [place], [address] Absolute Neut 3.2 X10 3/uL Normal 2.0-7.7 [facility] Comment on above: Performed By: #### L 501.080 #### [facility] [address] [place], [address] Basophils/100 WBC (Bld) 0.4 % Normal 0-1 [facility] [facility] Comment on above: Performed By: #### L 501.080 #### [facility] [address] [place], [address] Eosinophils/100 WBC (Bld) 1.5 % Normal 0-5 [facility] Comment on above: Performed By: #### L 501.080 #### [facility] [address] [place], [address] Erythrocyte distribution width (RBC) [Ratio] 13.5 % Normal 11.6-14.6 [facility] Comment on above: Performed By: #### L 501.080 #### [facility] [address] [place], [address] Hematocrit (Bld) [Volume fraction] 41.9 % Normal 40-54 [facility] Comment on above: Performed By: #### L 501.080 #### [facility] [address] [place], [address] Hemoglobin (Bld) [Mass/Vol] 14.1 g/dL Normal 13.0-16.5 [facility] Comment on above: Performed By: #### L 501.080 #### [facility] [address] [place], [address] IG% 0.200 Normal 0.0-0.9 [facility] Comment on above: Result Comment: IG% - Immature Granulocytes (promyelocytes, myelocytes and metamyelocytes) > 1% indicates that a LEFT SHIFT is Present. Performed By: #### L 501.080 #### [facility] [address] [place], [address] Lymphocytes/100 WBC (Bld) 20.1 % Normal 19-41 [facility] Comment on above: Performed By: #### L 501.080 #### [facility] [address] [place], [address] MCH (RBC) [Entitic mass] 29.6 pg Normal 27.0-32.0 [facility] Comment on above: Performed By: #### L 501.080 #### [facility] [address] [place], [address] MCHC (RBC) [Mass/Vol] 33.7 g/dL Normal 32-36 [facility] Comment on above: Performed By: #### L 501.080 #### [facility] [address] [place], [address] MCV (RBC) [Entitic vol] 87.8 fL Normal 80-94 [facility] Comment on above: Performed By: #### L 501.080 #### [facility] [address] [place], [address] Monocytes/100 WBC (Bld) 8.6 % Normal 0-10 [facility] Comment on above: Performed By: #### L 501.080 #### [facility] [address] [place], [address] Neutrophils/100 WBC (Bld) 69.2 % Normal 47-70 [facility] Comment on above: Performed By: #### L 501.080 #### [facility] [address] [place], [address] Nucleated RBC (Bld) [#/Vol] 0 10*3/uL Normal 0-5 [facility] Comment on above: Performed By: #### L 501.080 #### [facility] [address] [place], [address] Platelet mean volume (Bld) [Entitic vol] 9.8 fL Normal 6.2-12.0 [facility] Comment on above: Performed By: #### L 501.080 #### [facility] [address] [place], [address] Platelets (Bld) [#/Vol] 267 10*3/uL Normal 150-450 [facility] Comment on above: Performed By: #### L 501.080 #### [facility] [address] [place], [address] RBC (Bld) [#/Vol] 4.77 10*6/uL Normal 4.6-6.2 [facility] Comment on above: Performed By: #### L 501.080 #### [facility] [address] [place], [address] RDW SD 43.9 fl Normal 35.1-43.9 [facility] Comment on above: Performed By: #### L 501.080 #### [facility] [address] [place], [address] WBC (Bld) [#/Vol] 4.7 10*3/uL Normal 4.4-11.0 [facility] Comment on above: Performed By: #### L 501.080 #### [facility] [address] [place], [address] Carbon dioxide, total [Moles /volume] in Central venous bloodOrdered By: Petra Sawyer on 01-20-2025 CO2 [Moles/Vol] 25.8 mmol/L 21.0-32.0 [facility] Chloride assayOrdered By: Yovani Sawyer on 01-20-2025 Chloride [Moles/Vol] 97 mmol/L Low 98-108 [facility] Comprehensive Metabolic Prof ilon 01-20-2025 Albumin [Mass/Vol] 3.9 g/dL Normal 3.4-4.8 [facility] Comment on above: Performed By: #### L 501.080 #### [facility] [address] [place], [address] Albumin/Globulin [Mass ratio] 1.2 {ratio} Normal 0.9-2.4 [facility] Comment on above: Performed By: #### L 501.080 #### [facility] [address] [place], [address] ALK PHOS 230 U/L High 40-129 [facility] Comment on above: Performed By: #### L 501.080 #### [facility] [address] [place], [address] ALT [Catalytic activity/Vol] 76 U/L High <=46 [facility] Comment on above: Performed By: #### L 501.080 #### [facility] [address] [place], [address] AST [Catalytic activity/Vol] 52 U/L High <=37 [facility] Comment on above: Performed By: #### L 501.080 #### [facility] [address] [place], [address] Bilirubin [Mass/Vol] 3.95 mg/dL High 0.00-1.30 [facility] Comment on above: Performed By: #### L 501.080 #### [facility] [address] [place], [address] BUN/CRE 26.5 RATIO High 10-20 [facility] Comment on above: Performed By: #### L 501.080 #### [facility] [address] [place], [address] Calcium [Mass/Vol] 9.3 mg/dL Normal 7.6-11.0 [facility] Comment on above: Performed By: #### L 501.080 #### [facility] [address] [place], [address] Chloride [Moles/Vol] 97 mmol/L Low 98-108 [facility] Comment on above: Performed By: #### L 501.080 #### [facility] [address] [place], [address] CO2 [Moles/Vol] 25.8 mmol/L Normal 21.0-32.0 [facility] Comment on above: Performed By: #### L 501.080 #### [facility] [address] [place], [address] Creatinine [Mass/Vol] 0.71 mg/dL Normal 0.70-1.20 [facility] Comment on above: Performed By: #### L 501.080 #### [facility] [address] [place], [address] GAP 10 Normal 5-15 [facility] Comment on above: Performed By: #### L 501.080 #### [facility] [address] [place], [address] GFR/1.73 sq M.predicted among non-blacks MDRD (S/P/Bld) [Vol rate/Area] 99 mL/min/{1.73_m2} Normal >60 [facility] Comment on above: Result Comment: mL/m in/1.73m2 CKD-EPI Creatinine Equation (2020) Performed By: #### L 501.080 #### [facility] [address] [place], [address] Globulin (S) [Mass/Vol] 3.2 g/dL Normal 2.2-4.2 [facility] Comment on above: Performed By: #### L 501.080 #### [facility] [address] [place], [address] Glucose [Mass/Vol] 296 mg/dL High 70-99 [facility] Comment on above: Performed By: #### L 501.080 #### [facility] [address] [place], [address] Potassium [Moles/Vol] 4.5 mmol/L Normal 3.3-5.1 [facility] Comment on above: Performed By: #### L 501.080 #### [facility] [address] [place], [address] Sodium [Moles/Vol] 133 mmol/L Normal 133-145 [facility] Comment on above: Performed By: #### L 501.080 #### [facility] [address] [place], [address] T PROT 7.1 g/dL Normal 5.9-8.4 [facility] Comment on above: Performed By: #### L 501.080 #### [facility] [address] [place], [address] Urea nitrogen [Mass/Vol] 19 mg/dL Normal 4-19 [facility] Comment on above: Performed By: #### L 501.080 #### [facility] [address] [place], [address] Eosinophil percentageOrdered By: Petra Sawyer on 01-20-2025 Eosinophils/100 WBC (Bld) 1.5 % 0-5 [facility] Erythrocyte distribution wid th ratioOrdered By: Petra Sawyer on 01-20-2025 Erythrocyte distribution width (RBC) [Ratio] 13.5 % 11.6-14.6 [facility] Erythrocyte distribution wid th standard deviationOrdered By: Petra Sawyer on 01-20-2025 Erythrocyte distribution width (RBC) [Ratio] 43.9 fl 35.1-43.9 [facility] Glomerular filtration rate ( GFR) estimation/1.73 sq m using serum, plasma, or whole bOrdered By: Petra Sawyer on 01-20-2025 GFR/1.73 sq M.predicted among non-blacks MDRD (S/P/Bld) [Vol rate/Area] 99 mL/min/{1.73_m2} >60 [facility] Comment on above: mL/min/1.73m2 CKD-EP I Creatinine Equation (2020) Hematocrit Auto (Bld) [Volum e fraction]Ordered By: Petra Sawyer on 01-20-2025 Hematocrit (Bld) [Volume fraction] 41.9 % 40-54 [facility] Hemoglobin measurementOrdere d By: Petra Sawyer on 01-20-2025 Hemoglobin (Bld) [Mass/Vol] 14.1 g/dL 13.0-16.5 [facility] Immature granulocytes/100 WB C Auto (Bld)Ordered By: Petra Sawyer on 01-20-2025 Immature granulocytes/100 WBC (Bld) 0.200 % 0.0-0.9 [facility] Comment on above: IG% - Immature Granu locytes (promyelocytes, myelocytes and metamyelocytes) > 1% indicates that a LEFT SHIFT is Present. Laboratory - Chemistry and C hemistry - challengeOrdered By: Petra Sawyer on 01-20-2025 AST [Catalytic activity/Vol] 52 U/L High <38 [facility] MCV (mean corpuscular volume ) determinationOrdered By: Petra Sawyer on 01-20-2025 MCV (RBC) [Entitic vol] 87.8 fL 80-94 [facility] Mean corpuscular hemoglobin (MCH) determinationOrdered By: Petra Sawyer on 01-20-2025 MCH (RBC) [Entitic mass] 29.6 pg 27.0-32.0 [facility] Mean corpuscular hemoglobin concentration (MCHC) determinationOrdered By: Petra Sawyer on 01-20-2025 MCHC (RBC) [Mass/Vol] 33.7 g/dL 32-36 [facility] Mean platelet volume determi nationOrdered By: Petra Sawyer on 01-20-2025 Platelet mean volume (Bld) [Entitic vol] 9.8 fL 6.2-12.0 [facility] Monocyte percentageOrdered B y: Petra Sawyer on 01-20-2025 Monocytes/100 WBC (Bld) 8.6 % 0-10 [facility] Neutrophil percentageOrdered By: Petra Sawyer on 01-20-2025 Neutrophils/100 WBC (Bld) 69.2 % 47-70 [facility] Nucleated red blood cell per centageOrdered By: Petra Sawyer on 01-20-2025 Nucleated RBC/100 WBC (Bld) [Ratio] 0 % 0-5 [facility] Oncology Visit Reporton Oncology Visit Report [facility] [facility] [address] [place] [address] OFFICE VISIT Date of Service: 01/20/25 1003 MR#: [id number] Acct: [id number] Name: ERICK GAUTAM Rep #: [id number] : 1955 From: Petra Sawyer MD Age/Sex: 69/M Location: [facility] Status: Signed HPI Subjective Date of [...] cyst. January 13, 2025 ERCP: Findings: The hospital product specialist film was normal. The esophagus was successfully [...] main bile duct was biopsied with a [place] miniature biopsy forceps for histology. One 10 [...] right hepati (more content not included)... Normal [facility] Platelet countOrdered By: Yovani Sawyer on 01-20-2025 Platelets (Bld) [#/Vol] 267 10*3/uL 150-450 [facility] Potassium measurement (mass/ volume)Ordered By: Petra Sawyer on 01-20-2025 Potassium (Unsp spec) [Mass/Vol] 4.5 mmol/L 3.3-5.1 [facility] RBC Auto (Bld) [#/Vol]Ordere d By: Petra Sawyer on 01-20-2025 RBC (Bld) [#/Vol] 4.77 10*6/uL 4.6-6.2 [facility] Serum creatinine measurement (mass/volume)Ordered By: Petra Sawyer on 01-20-2025 Creatinine [Mass/Vol] 0.71 mg/dL 0.70-1.20 [facility] Serum globulin measurementOr dered By: Petra Sawyer on 01-20-2025 Globulin (S) [Mass/Vol] 3.2 g/dL 2.2-4.2 [facility] Serum glucose measurement (m ass/volume)Ordered By: Petra Sawyer on 01-20-2025 Glucose [Mass/Vol] 296 mg/dL High 70-99 [facility] Serum or plasma alanine ordoñez otransferase (ALT) measurementOrdered By: Petra Sawyer on 01-20-2025 ALT [Catalytic activity/Vol] 76 U/L High <47 [facility] Serum or plasma albumin jenny urement (mass/volume)Ordered By: Petra Sawyer on 01-20-2025 Albumin [Mass/Vol] 3.9 g/dL 3.4-4.8 [facility] Serum or plasma albumin/glob ulin mass ratioOrdered By: Petra Sawyer on 01-20-2025 Albumin/Globulin [Mass ratio] 1.2 {ratio} 0.9-2.4 [facility] Serum or plasma alkaline mitzi sphatase measurementOrdered By: Petra Sawyer on 01-20-2025 ALP [Catalytic activity/Vol] 230 U/L High 40-129 [facility] Serum or plasma calcium jenny urement (mass/volume)Ordered By: Petra Sawyer on 01-20-2025 Calcium [Mass/Vol] 9.3 mg/dL 7.6-11.0 [facility] Serum or plasma urea nitroge n measurement (mass/volume)Ordered By: Petra Sawyer on 01-20-2025 Urea nitrogen [Mass/Vol] 19 mg/dL 4-19 [facility] Sodium levelOrdered By: Osman Sawyer on 01-20-2025 Sodium [Moles/Vol] 133 mmol/L 133-145 [facility] Total proteinOrdered By: Oswald Sawyer on 07-03-2025 Protein [Mass/Vol] 7.1 g/dL 5.9-8.4 [facility] White blood cell (WBC) count Ordered By: Petra Sawyer on 01-20-2025 WBC (Bld) [#/Vol] 4.7 10*3/uL 4.4-11.0 [facility] AFP, Tumor Markeron 01-17-20 25 AFP TUMOR ELIN < 1.8 Normal 0.0-8.4 [facility] Comment on above: Result Comment: [employer] Electrochemiluminescence Immunoassay (ECLIA) Values obtained with different assay methods or kits cannot be used interchangeably. Results cannot be interpreted as absolute evidence of the presence or absence of malignant disease. This test is not interpretable in females. Performed By: #### L 501.080 #### [facility] [address] [place], [address] ANCAon 01-16-2025 Atypical pANCA <1:20 Normal Neg:<1:20 [facility] Comment on above: Result Comment: Note : Specimen is icteric. The atypical pANCA pattern has been observed in a significant percentage of patients with ulcerative colitis, primary sclerosing cholangitis and autoimmune hepatitis. Performed By: #### L 501.080 #### [facility] [address] [place], [address] Cytoplasmic Ab <1:20 Normal Neg:<1:20 [facility] Comment on above: Result Comment: Note : Specimen is icteric. Performed By: #### L 501.080 #### [facility] [address] [place], [address] Perinuclear Ab. <1:20 Normal Neg:<1:20 [facility] Comment on above: [...] up testing of positive sera with both MI- 3 and MPO-ANCA enzyme immunoassays. As many as 5% serum samples are positive only by EIA. Ref. AM J Clin Pathol 1999;111:507-513. Performed By: #### L 501.080 #### [facility] [address] [place], [address] CMV Acute Antibody IgMon CMV Ab, IgM < 30.0 Normal 0.0-29.9 [facility] Comment on above: Result Comment: Nega tive <30.0 Equivocal 30.0 - 34.9 Positive >34.9 A positive result is generally indicative of acute infection, reactivation or persistent IgM production. Performed at: [facility] [address] [id number] [employer]: Dylan Osorio PhD, Phone: [phone] Performed at: [facility] [address] [id number] [employer]: Jayde Casanova MD, Phone: [phone] Performed By: #### L 501.080 #### [facility] [address] [place], [address] Carbohydrate AG 19-9on 01-16 CA 19-9 328 U/mL High 0-35 [facility] Comment on above: Result Comment: [employer] Electrochemiluminescence Immunoassay (ECLIA) Values obtained with different assay methods or kits cannot be used interchangeably. Results cannot be interpreted as absolute evidence of the presence or absence of malignant disease. Performed By: #### L 501.080 #### [facility] [address] [place], [address] EBV Acute Prof IgG / IgMon 0 01-16-2025 EB Ab VCA, IgG > 600.0 High 0.0-17.9 [facility] Comment on above: Result Comment: Nega tive <18.0 Equivocal 18.0 - 21.9 Positive >21.9 Performed By: #### L 501.080 #### [facility] [address] [place], [address] EBV Ab VCA, IgM < 36.0 Normal 0.0-35.9 [facility] Comment on above: Result Comment: Nega tive <36.0 Equivocal 36.0 - 43.9 Positive >43.9 Performed By: #### L 501.080 #### [facility] [address] [place], [address] EBV NuAg Ab,IgG 155.0 U/mL High 0.0-17.9 [facility] Comment on above: Result Comment: Nega tive <18.0 Equivocal 18.0 - 21.9 Positive >21.9 Performed By: #### L 501.080 #### [facility] [address] [place], [address] INTERPRETATION Comment Normal . [facility] Comment on above: [...] antibodies to EBNA. Performed By: #### L 501.080 #### [facility] [address] [place], [address] IgG Subclasseson 01-16-2025 IgG, SUBCLASS 1 528 mg/dL Normal 248-810 [facility] Comment on above: Performed By: #### L [id number] #### [facility] [address] [place], [address] IgG, SUBCLASS 2 287 mg/dL Normal 130-555 [facility] Comment on above: Performed By: #### L 501.080 #### [facility] [address] [place], [address] IgG, SUBCLASS 3 30 mg/dL Normal 15-102 [facility] Comment on above: Performed By: #### L 501.080 #### [facility] [address] [place], [address] IgG, SUBCLASS 4 51 mg/dL Normal 2-96 [facility] Comment on above: Performed By: #### L 501.080 #### [facility] [address] [place], [address] IGG,QUANT 1067 mg/dL Normal 603-1613 [facility] Comment on above: Performed By: #### L 501.080 #### [facility] [address] [place], [address] Immunoglobulins G/A/M/Neel IMMUNOGLOB A QN 204 mg/dL Normal 61-437 [facility] Comment on above: Performed By: #### L 501.080 #### [facility] [address] [place], [address] IMMUNOGLOB E QN 37 IU/mL Normal 6-495 [facility] Comment on above: Performed By: #### L 501.080 #### [facility] [address] [place], [address] IMMUNOGLOB M QN 79 mg/dL Normal 20-172 [facility] Comment on above: Performed By: #### L 501.080 #### [facility] [address] [place], [address] THANH Comprehensive Panelon ANTI-DNA (DS)AB <1 Normal 0-9 [facility] Comment on above: Result Comment: Note : Specimen is icteric. Negative <5 Equivocal 5 - 9 Positive >9 Performed By: #### L 501.080 #### [facility] [address] [place], [address] ANTI-SS-A < 0.2 Normal 0.0-0.9 [facility] Comment on above: Result Comment: Note : Specimen is icteric. Performed By: #### L 501.080 #### [facility] [address] [place], [address] ANTI-SS-B < 0.2 Normal 0.0-0.9 [facility] Comment on above: Result Comment: Note : Specimen is icteric. Performed By: #### L 501.080 #### [facility] [address] [place], [address] Bedside Glucoseon 01-14-2025 FINGERSTICK GLU 229 mg/dL High 74-106 [facility] Comment on above: Result Comment: YUKI GEMENT OF PATIENT CARE PER NURSING PROTOCOL Performed By: #### L 501.080 #### [facility] [address] [place], [address] FINGERSTICK GLU 190 mg/dL High 74-106 [facility] Comment on above: Result Comment: YUKI GEMENT OF PATIENT CARE PER NURSING PROTOCOL Performed By: #### L 501.080 #### [facility] [address] [place], [address] Discharge Instructionon 12-20 Discharge Instruction [facility] Medical Records Department [address] [place] [address] Instructions for Home/Discharge Instructions 01/14/25 1042 MR#: [id number] Acct: [id number] Name: ERICK GAUTAM Rep #: [id number] : 1955 69 From: Elin Benites DO [...] MD; Dr. Matilde Henry MD Signed Normal [facility] Glucose measurement at [facility] deOrdered By: Elin Benites on 01-14-2025 Glucose [Mass/Vol] 229 mg/dL High 74-106 [facility] Comment on above: MANAGEMENT OF PATIEN T CARE PER NURSING PROTOCOL Hepatitis Panel Acuteon 12-20 COMMENT Comment Normal . [facility] Comment on above: Result Comment: Not infected with HCV unless early or acute infection is suspected (which may be delayed in an immunocompromised individual), or other evidence exists to indicate HCV infection. Performed at: - [facility] [id number] [employer]: Dylan Osorio PhD, Phone: [phone] Performed By: #### L 501.080 #### [facility] [address] [facility] [id number] HEP B CORE,IgM Negative Normal Negative [facility] Comment on above: Performed By: #### L 501.080 #### [facility] [address] [facility] [id number] HEP B SURF AG Negative Normal Negative [facility] Comment on above: Performed By: #### L 501.080 #### [facility] [address] [facility] [id number] HEP C VIRUS AB Non-Reactive Normal Non Reactive [facility] Comment on above: Performed By: #### L 501.080 #### [facility] [address] [facility] [id number] HEPATITIS A-IgM Negative Normal Negative [facility] Comment on above: Result Comment: A ne gative anti-HAV IgM result suggests no recent or current HAV infection. Performed By: #### L 501.080 #### [facility] [address] [facility] [id number] Absolute lymphocyte countOrd ered By: Matilde Henry on 01-13-2025 Lymphocytes Auto (Unsp spec) [#/Vol] 0.73 10*3/uL Low 0.83-4.51 [facility] Absolute neutrophil countOrd ered By: Matilde Henry on 01-13-2025 Neutrophils (Bld) [#/Vol] 3.1 10*3/uL 2.0-7.7 [facility] Anion gap in Serum or Plasma Ordered By: Matilde Henry on 01-13-2025 Anion gap [Moles/Vol] 12 mmol/L 5-15 [facility] Automated lymphocyte count a s percentage of total leukocytesOrdered By: Matilde Henry on 01-13-2025 Lymphocytes/100 WBC Auto (Unsp spec) 16.9 % Low 19-41 [facility] BUN/creatinine ratioOrdered By: Matilde Henry on 01-13-2025 Urea nitrogen/Creatinine [Mass ratio] 27.3 mg/mg High 10-20 [facility] Basophil percentageOrdered B y: Matilde Henry on 01-13-2025 Basophils/100 WBC (Bld) 0.2 % 0-1 [facility] Bedside Glucoseon 01-13-2025 FINGERSTICK GLU 251 mg/dL High 74-106 [facility] Comment on above: Result Comment: YUKI GEMENT OF PATIENT CARE PER NURSING PROTOCOL Performed By: #### L 501.080 #### [facility] [address] [facility] [id number] FINGERSTICK GLU 237 mg/dL High 74-106 [facility] Comment on above: Result Comment: YUKI GEMENT OF PATIENT CARE PER NURSING PROTOCOL Performed By: #### L 501.080 #### [facility] [address], [address] FINGERSTICK GLU 222 mg/dL High 74-106 [facility] Comment on above: Result Comment: YUKI GEMENT OF PATIENT CARE PER NURSING PROTOCOL Performed By: #### L 501.080 #### [facility] [address] [place], [place], [address] F[place] GLU 240 mg/dL High 74-106 [facility] Comment on above: Result Comment: YUKI GEMENT OF PATIENT CARE PER NURSING PROTOCOL Performed By: #### L 501.080 #### [facility] [address] [place], [address] Bilirubin, totalOrdered By: Matilde Henry on 01-13-2025 Bilirubin [Mass/Vol] 12.20 mg/dL High 0.00-1.30 [facility] CBC W/Diff, Automatedon 12-20 Absolute Lymph 0.73 X10 3/uL Low 0.83-4.51 [facility] Comment on above: Performed By: #### L 501.080 #### [facility] [address] [place], [address] Absolute Neut 3.1 X10 3/uL Normal 2.0-7.7 [facility] Comment on above: Performed By: #### L 501.080 #### [facility] [address] [place], [address] Basophils/100 WBC (Bld) 0.2 % Normal 0-1 [facility] Comment on above: Performed By: #### L 501.080 #### [facility] [address] [place], [address] Eosinophils/100 WBC (Bld) 1.8 % Normal 0-5 [facility] Comment on above: Performed By: #### L 501.080 #### [facility] [address] [place], [address] Erythrocyte distribution width (RBC) [Ratio] 14.1 % Normal 11.6-14.6 [facility] Comment on above: Performed By: #### L 501.080 #### [facility] [address] [place], [address] Hematocrit (Bld) [Volume fraction] 38.5 % Low 40-54 [facility] Comment on above: Performed By: #### L 501.080 #### [facility] [address] [place], [address] Hemoglobin (Bld) [Mass/Vol] 13.5 g/dL Normal 13.0-16.5 [facility] Comment on above: Performed By: #### L 501.080 #### [facility] [address] [place], [address] IG% 0.500 Normal 0.0-0.9 [facility] Comment on above: Result Comment: IG% - Immature Granulocytes (promyelocytes, myelocytes and metamyelocytes) > 1% indicates that a LEFT SHIFT is Present. Performed By: #### L 501.080 #### [facility] [address] [place], [address] Lymphocytes/100 WBC (Bld) 16.9 % Low 19-41 [facility] Comment on above: Performed By: #### L 501.080 #### [facility] [address] [place], [address] MCH (RBC) [Entitic mass] 29.9 pg Normal 27.0-32.0 [facility] Comment on above: Performed By: #### L 501.080 #### [facility] [address] [place], [address] MCHC (RBC) [Mass/Vol] 35.1 g/dL Normal 32-36 [facility] Comment on above: Performed By: #### L 501.080 #### [facility] [address] [place], [address] MCV (RBC) [Entitic vol] 85.2 fL Normal 80-94 [facility] Comment on above: Performed By: #### L 501.080 #### [facility] [address] [place], [address] Monocytes/100 WBC (Bld) 9.9 % Normal 0-10 [facility] Comment on above: Performed By: #### L 501.080 #### [facility] [address] [place], [address] Neutrophils/100 WBC (Bld) 70.7 % High 47-70 [facility] Comment on above: Performed By: #### L 501.080 #### [facility] [address] [place], [address] Nucleated RBC (Bld) [#/Vol] 0 10*3/uL Normal 0-5 [facility] Comment on above: Performed By: #### L 501.080 #### [facility] [address] [place], [address] Platelet mean volume (Bld) [Entitic vol] 10.1 fL Normal 6.2-12.0 [facility] Comment on above: Performed By: #### L 501.080 #### [facility] [address] [place], [address] Platelets (Bld) [#/Vol] 233 10*3/uL Normal 150-450 [facility] Comment on above: Performed By: #### L 501.080 #### [facility] [address] [place], [address] RBC (Bld) [#/Vol] 4.52 10*6/uL Low 4.6-6.2 [facility] Comment on above: Performed By: #### L 501.080 #### [facility] [address] [place], [address] RDW SD 43.9 fl Normal 35.1-43.9 [facility] Comment on above: Performed By: #### L 501.080 #### [facility] [address] [place], [address] WBC (Bld) [#/Vol] 4.3 10*3/uL Low 4.4-11.0 [facility] Comment on above: Performed By: #### L 501.080 #### [facility] [address] [place], [address] Carbon dioxide, total [Moles /volume] in Central venous bloodOrdered By: Matilde Henry on 01-13-2025 CO2 [Moles/Vol] 22.0 mmol/L 21.0-32.0 [facility] Chloride assayOrdered By: Aaron Henry on 01-13-2025 Chloride [Moles/Vol] 102 mmol/L 98-108 [facility] Comprehensive Metabolic Prof ilon 01-13-2025 Albumin [Mass/Vol] 3.6 g/dL Normal 3.4-4.8 [facility] Comment on above: Performed By: #### L 501.080 #### [facility] [address], [address] Albumin/Globulin [Mass ratio] 1.4 {ratio} Normal 0.9-2.4 [facility] Comment on above: Performed By: #### L 501.080 #### [facility] [address] [place], [address] ALK PHOS 267 U/L High 40-129 [facility] Comment on above: Performed By: #### L 501.080 #### [facility] [address] [place], [address] ALT [Catalytic activity/Vol] 94 U/L High <=46 [facility] Comment on above: Performed By: #### L 501.080 #### [facility] [address] [place], [address] AST [Catalytic activity/Vol] 50 U/L High <=37 [facility] Comment on above: Performed By: #### L 501.080 #### [facility] [address] [place], [address] Bilirubin [Mass/Vol] 12.20 mg/dL High 0.00-1.30 [facility] Comment on above: Performed By: #### L 501.080 #### [facility] [address] [place], [address] BUN/CRE 27.3 RATIO High 10-20 [facility] Comment on above: Performed By: #### L 501.080 #### [facility] [address] [place], [address] Calcium [Mass/Vol] 9.1 mg/dL Normal 7.6-11.0 [facility] Comment on above: Performed By: #### L 501.080 #### [facility] [address] [place], [address] Chloride [Moles/Vol] 102 mmol/L Normal 98-108 [facility] Comment on above: Performed By: #### L 501.080 #### [facility] [address] [place], [address] CO2 [Moles/Vol] 22.0 mmol/L Normal 21.0-32.0 [facility] Comment on above: Performed By: #### L 501.080 #### [facility] [address] [place], [address] Creatinine [Mass/Vol] 0.71 mg/dL Normal 0.70-1.20 [facility] Comment on above: Result Comment: Icte miky present, Results may be affected. Performed By: #### L 501.080 #### [facility] [address] [place], [address] ECRCL 89.98 ml/min Normal 50-250 [facility] Comment on above: Performed By: #### L 501.080 #### [facility] [address] [place], [address] GAP 12 Normal 5-15 [facility] Comment on above: Performed By: #### L 501.080 #### [facility] [address] [place], [address] GFR/1.73 sq M.predicted among non-blacks MDRD (S/P/Bld) [Vol rate/Area] 99 mL/min/{1.73_m2} Normal >60 [facility] Comment on above: Result Comment: mL/m in/1.73m2 CKD-EPI Creatinine Equation (2020) Performed By: #### L 501.080 #### [facility] [address] [place], [address] Globulin (S) [Mass/Vol] 2.5 g/dL Normal 2.2-4.2 [facility] Comment on above: Performed By: #### L 501.080 #### [facility] [address] [place], [address] Glucose [Mass/Vol] 258 mg/dL High 70-99 [facility] Comment on above: Performed By: #### L 501.080 #### [facility] [address] [place], [address] Potassium [Moles/Vol] 4.2 mmol/L Normal 3.3-5.1 [facility] Comment on above: Performed By: #### L 501.080 #### [facility] [address] [place], [address] Sodium [Moles/Vol] 136 mmol/L Normal 133-145 [facility] Comment on above: Performed By: #### L 501.080 #### [facility] [address] [place], [address] T PROT 6.1 g/dL Normal 5.9-8.4 [facility] Comment on above: Performed By: #### L 501.080 #### [facility] [address] [place], [address] Urea nitrogen [Mass/Vol] 20 mg/dL High 4-19 [facility] Comment on above: Performed By: #### L 501.080 #### [facility] [address] [place], [address] ERCP Biliary/Pancreason 12-20 ERCP Biliary/Pancreas [facility] [address] [place], [place] [address] ERCP Biliary/Pancreas MR#: [id number] Acct: [id number] Name: ERICK GAUTAM Rep #: [id number] : 1955 M 69 From: Sam Acosta PCP: Dr. Belle Monk MD Status: ADM IN Study: ERCP Biliary/Pancreas Date of Exam: 01/13/25 Exam# [id number] Ordering Dr: Trevon Webber DO PROCEDURE: ERCP BILIARY/PANCREAS; O.R. FLUORO FOR C-ARM 01/13/2025 REASON FOR EXAM: ERCP TECHNIQUE: Intraoperative fluoroscopy for ERCP. 7 fluoroscopic images were also obtained. Fluoroscopy time: 67.1 seconds. 21.38 mGy dose. RAD/ERCP Biliary/Pancreas IMPRESSION: Intraoperative fluoroscopy for ERCP. 7 fluoroscopic images were also obtained. Reading Location: [place] [address] CC: Dr. Belle Monk MD; Trevon Webber DO [employer] Engineer: Signed Normal [facility] ERCP Reporton 01-13-2025 ERCP Report [facility] Medical Records Department [address] [place] [address] ERCP Report MR#: [id number] Acct: [id number] Name: ERICK GAUTAM Rep #: [id number] : 1955 69 From: Trevon Webber DO [...] hours 42 minutes 35 seconds Findings: The hospital product specialist film was normal. The esophagus was successfully [...] bile duct was explored endoscopically using the SpSurya Power Magiclass direct visualization system. The SpyScope was advanced to the right intrahepatic duct(s). Visibility with the scope was good. The lumen of the middle third of the main bile duct was severely narrowed. The middle third of the main bile duct contained a single localized stenosis 6 mm in length. The middle third of the main bile duct was biopsied with a Sunsea miniature biopsy forceps for histology. One 10 Fr by 12 cm temporary stent was placed 5 cm into the common bile duct. Bile flowed through the stent. The stent was in good position. Imp (more content not included)... Normal [facility] Eosinophil percentageOrdered By: Matilde Henry on 01-13-2025 Eosinophils/100 WBC (Bld) 1.8 % 0-5 [facility] Erythrocyte distribution wid th ratioOrdered By: Matilde Henry on 01-13-2025 Erythrocyte distribution width (RBC) [Ratio] 14.1 % 11.6-14.6 [facility] Erythrocyte distribution wid th standard deviationOrdered By: Matilde Henry on 01-13-2025 Erythrocyte distribution width (RBC) [Ratio] 43.9 fl 35.1-43.9 [facility] Glomerular filtration rate ( GFR) estimation/1.73 sq m using serum, plasma, or whole bOrdered By: Matilde Henry on 01-13-2025 GFR/1.73 sq M.predicted among non-blacks MDRD (S/P/Bld) [Vol rate/Area] 99 mL/min/{1.73_m2} >60 [facility] Comment on above: mL/min/1.73m2 CKD-EP I Creatinine Equation (2020) Hematocrit Auto (Bld) [Volum e fraction]Ordered By: Matilde Henry on 01-13-2025 Hematocrit (Bld) [Volume fraction] 38.5 % Low 40-54 [facility] Hemoglobin measurementOrdere d By: Matilde Henry on 01-13-2025 Hemoglobin (Bld) [Mass/Vol] 13.5 g/dL 13.0-16.5 [facility] Immature granulocytes/100 WB C Auto (Bld)Ordered By: Matilde Henry on 01-13-2025 Immature granulocytes/100 WBC (Bld) 0.500 % 0.0-0.9 [facility] Comment on above: IG% - Immature Granu locytes (promyelocytes, myelocytes and metamyelocytes) > 1% indicates that a LEFT SHIFT is Present. Immunohistochemical Stainson 01-13-2025 Immunohistochemical Stains Patient Age/Sex Location Account Attending Physician ERICK GAUTAM 69/M MS3 [id number] Dr. Elin Benites DO Specimen: [id number] Received: 01/13/25 Status: PAOLA Bermudezbonita Num: [id number] Spec Type: Mass Subm Dr: Trevon Webber DO HEADER OPERATION: [...] of the specimen may not survive processing. OR 01/13/2025 CPT:22638,31909,16112 Patient Age/Sex Location Account Attending Physician ERICK GAUTAM 69/M MS3 [id number] Dr. Elin Benites, DO Signed (signature on file) Dr. Aziza Bush MD 01/14/25 1602 Normal [facility] Comment on above: Performed By: #### P BARBARA ####[facility] [address] [place], [address] Laboratory - Chemistry and C hemistry - challengeOrdered By: Matilde Henry on 01-13-2025 AST [Catalytic activity/Vol] 50 U/L High <38 [facility] MCV (mean corpuscular volume ) determinationOrdered By: Matilde Henry on 01-13-2025 MCV (RBC) [Entitic vol] 85.2 fL 80-94 [facility] MR/POSTOP.ANEon 01-13-2025 MR/POSTOP.ANE [facility] Records Department [address] [place] [address] Anesthesia Postop Eval I 01/13/25 1438 MR#: [id number] Acct: [id number] Name: ERICK GAUTAM Rep #: [id number] : 1955 69 From: Brian Vazquez CRNA PCP: Dr. Belle Monk MD Status:ADM IN Y Race: C Location: [place] [id number] Anesthesia: Postop Eval I Current Vital Signs Temperature: 97.5 F Pulse Rate: 85 Blood Pressure: 135/91 Respiratory Rate: 16 Pulse Ox: 97 Assessment Airway patent: Yes Spontaneous unlabored respirations: Yes nausea: No Vomiting: No Anesthesia Complication: No Fluid Hydration Crystalloid volume administer (ml): 800 Total IV fluid infused: 800 Progress Note Anesthesia document: Postop Eval 1 completed: Yes 01/13/25 1439 Date Brian Vazquez ARRANGER ASSEMBLER Cosigner Signature: Date CC: Signed Normal [facility] MR/[id number] 01-13-2025 MR/POSTOPAN2 [facility] Records Department [address] [place] [address] Anesthesia Postop Eval II 01/13/25 1803 MR#: [id number] Acct: [id number] Name: ERICK GAUTAM Rep #: [id number] : 1955 69 From: Bernarda Rizo CRNA PCP: Dr. Belle Monk MD Status:ADM IN Y Race: C Location: [place] [id number] Anesthesia Postop Eval I Sum Postop Eval Completion status Anesthesia document: Postop Eval 1 completed: Yes Anesthesia Postop Eval I Summary Anesthesia Postop Eval I Summary: Anesthesia Postop Eval I: Assessment Summary Airway patent Yes 01/13/25 14:38 ARRANGER [email or web address] Spontaneous unlabored Yes 01/13/25 14:38 ARRANGER [email or web address] respirations Mental status nausea No 01/13/25 14:38 ARRANGER [email or web address].TNES Vomiting No 01/13/25 14:38 ARRANGER [email or web address].TNES Anesthesia Postop Eval I: Fluid Summary Crystalloid volume administer 800 01/13/25 14:38 ARRANGER [email or web address].TNES (ml) Colloids volume administered ( ml) Blood Product volume administered (ml) Total IV fluid infused 800 01/13/25 14:38 ARRANGER [email or web address].TNES Anesthesia Postop Eval I: Summary Notes Anesthesia Complication No 01/13/25 14:38 ARRANGER [email or web address].TNES Anesthesia Complication Comment: Post-operative progress note Anesthesia: Postop Eval II Evaluation Mental status: Awake Pain Level: 2 nausea: No Vomiting: No 01/13/25 180 Date Bernarda Rizo ARRANGER ASSEMBLER Cosigner Signature: Date CC: Signed Normal [facility] Mean corpuscular hemoglobin (MCH) determinationOrdered By: Matilde Henry on 01-13-2025 MCH (RBC) [Entitic mass] 29.9 pg 27.0-32.0 [facility] Mean corpuscular hemoglobin concentration (MCHC) determinationOrdered By: Matilde Henry on 01-13-2025 MCHC (RBC) [Mass/Vol] 35.1 g/dL 32-36 [facility] Mean platelet volume determi nationOrdered By: Matilde Henry on 01-13-2025 Platelet mean volume (Bld) [Entitic vol] 10.1 fL 6.2-12.0 [facility] Monocyte percentageOrdered B y: Matilde Henry on 01-13-2025 Monocytes/100 WBC (Bld) 9.9 % 0-10 [facility] Neutrophil percentageOrdered By: Matilde Henry on 01-13-2025 Neutrophils/100 WBC (Bld) 70.7 % High 47-70 [facility] Nucleated red blood cell per centageOrdered By: Matilde Henry on 01-13-2025 Nucleated RBC/100 WBC (Bld) [Ratio] 0 % 0-5 [facility] O.R. Fluoro for C-Angel 12-20 O.R. Fluoro for C-Arm [facility] Imaging Services [address] [place] [id number] O.R. Fluoro for C-Arm MR#: [id number] Acct: [id number] Name: ERICK GAUTAM Rep #: [id number] : 1955 M 69 From: Sam Acosta PCP: Dr. Belle Monk MD Status: ADM IN Study: O.R. Fluoro for C-Arm Date of Exam: 01/13/25 Exam# [id number] Ordering Dr: Trevon Webber DO PROCEDURE: ERCP BILIARY/PANCREAS; O.R. FLUORO FOR C-ARM 01/13/2025 REASON FOR EXAM: ERCP TECHNIQUE: Intraoperative fluoroscopy for ERCP. 7 fluoroscopic images were also obtained. Fluoroscopy time: 67.1 seconds. 21.38 mGy dose. RAD/O.R. Fluoro for C-Arm IMPRESSION: Intraoperative fluoroscopy for ERCP. 7 fluoroscopic images were also obtained. Reading Location: [place] [address] CC: Dr. Belle Monk MD; Trevon Webber DO [employer] Engineer: Signed Normal [facility] Platelet countOrdered By: Aaron Henry on 01-13-2025 Platelets (Bld) [#/Vol] 233 10*3/uL 150-450 [facility] Potassium measurement (mass/ volume)Ordered By: Matilde Henry on 01-13-2025 Potassium (Unsp spec) [Mass/Vol] 4.2 mmol/L 3.3-5.1 [facility] RBC Auto (Bld) [#/Vol]Ordere d By: Matilde Henry on 01-13-2025 RBC (Bld) [#/Vol] 4.52 10*6/uL Low 4.6-6.2 [facility] Serum DNA double strand anti body assay (units/volume)Ordered By: Trevon Webber on 01-13-2025 DNA double strand Ab Qn (S) [IU]/mL 0-9 [facility] Comment on above: Note: Specimen is ic teric. Negative <5 Equivocal 5 - 9 Positive >9 Serum Scl-70 antibody assay (units/volume)Ordered By: Trevon Webber on 01-13-2025 SCL-70 extractable nuclear Ab Qn (S) 0.3 AI 0.0-0.9 [facility] Comment on above: Note: Specimen is ic teric.Previous reported result: TNP AIEdited by: SIMONA on 01/14/25:1008 AMENDED REPORT 01/14/25 1008 ANTISCLER previously reported as: Test not performed Serum creatinine measurement (mass/volume)Ordered By: Matilde Henry on 01-13-2025 Creatinine [Mass/Vol] 0.71 mg/dL 0.70-1.20 [facility] Comment on above: Icterus present, Res ults may be affected. Serum globulin measurementOr dered By: Matilde Henry on 01-13-2025 Globulin (S) [Mass/Vol] 2.5 g/dL 2.2-4.2 [facility] Serum glucose measurement (m ass/volume)Ordered By: Matilde Henry on 01-13-2025 Glucose [Mass/Vol] 258 mg/dL High 70-99 [facility] Serum or plasma alanine ordoñez otransferase (ALT) measurementOrdered By: Matilde Henry on 01-13-2025 ALT [Catalytic activity/Vol] 94 U/L High <47 [facility] Serum or plasma albumin jenny urement (mass/volume)Ordered By: Matilde Henry on 01-13-2025 Albumin [Mass/Vol] 3.6 g/dL 3.4-4.8 [facility] Serum or plasma albumin/glob ulin mass ratioOrdered By: Matilde Henry on 01-13-2025 Albumin/Globulin [Mass ratio] 1.4 {ratio} 0.9-2.4 [facility] Serum or plasma alkaline mitzi sphatase measurementOrdered By: Matilde Henry on 01-13-2025 ALP [Catalytic activity/Vol] 267 U/L High 40-129 [facility] Serum or plasma calcium jenny urement (mass/volume)Ordered By: Matilde Henry on 01-13-2025 Calcium [Mass/Vol] 9.1 mg/dL 7.6-11.0 [facility] Serum or plasma urea nitroge n measurement (mass/volume)Ordered By: Matilde Henry on 01-13-2025 Urea nitrogen [Mass/Vol] 20 mg/dL High 4-19 [facility] Sodium levelOrdered By: Dali Henry on 01-13-2025 Sodium [Moles/Vol] 136 mmol/L 133-145 [facility] Special Stain Group IIon Special Stain Group II -------- Patient Age/Sex Location Account Attending Physician ERICK GATUAM 69/M MS3 [id number] Dr. Elin Benites, DO Specimen: [id number] Received: 01/13/25 Status: PAOLA Shaw Num: [id number] Spec Type: Fluid Subm Dr: Trevon Webber, DO HEADER OPERATION: [...] * Note: See also concurrent biopsy specimen [id number]. CYTOLOGY STUDY Slides are reviewed. CYTOLOGY GROSS A. Received is one brush tip with 0.5 ml of light-yellow fluid and 4 slides labeled with the patient's name and and designated per the requisition as Mid common bile duct. Submitted for cytology. 01/14/2025 CPT: 37151, 60248 ADDENDUM Addendum 1 Entered: 02/21/25-1111 This addendum is added to incorporate an outside pathology consultation report. The case was examined at [facility] by Dr. Montoya (#[id number]) and the following diagnosis was rendered. A. Common bile duct, mid portion, brushings: No malignant cells are identified. Please see complete above mentioned consultation report in EMR Patient Age/Sex Location Account Attending Physician ERICK GAUTAM 69/M MS3 [id number] Dr. Elin Benites DO ADDENDUM (Continued) Addendum Signed (signature on file) Dr. Aziza Bush MD 02/21/25 1118 Signed (signature on file) Dr. Aziza Bush MD 01/17/25 1139 Normal [facility] Comment on above: Performed By: #### P SSII ####[facility] [id number] [facility] [place], [place], [id number] Total proteinOrdered By: Wisam Henry on 01-13-2025 Protein [Mass/Vol] 6.1 g/dL 5.9-8.4 [facility] White blood cell (WBC) count Ordered By: Matilde Henry on 01-13-2025 WBC (Bld) [#/Vol] 4.3 10*3/uL Low 4.4-11.0 [facility] Abdomen/Pelvis W IV Cont ONL Yon 01-12-2025 Abdomen/Pelvis W IV Cont ONLY [facility] Services [address] [place] [address] Abdomen/Pelvis W IV Cont ONLY MR#: [id number] Acct: [id number] Name: ERICK GAUTAM Rep #: [id number] : 1955 M 69 From: Dagoberto De Leon MD PCP: Dr. Belle Monk MD Status: REG ER Study: Abdomen/Pelvis W IV Cont ONLY Date of Exam: Exam# [id number] Ordering Dr: Jeremy Lockett MD PROCEDURE: ABDOMEN/PELVIS [...] Jeremy Lockett MD; Dr. Belle Monk MD [employer] Engineer: Signed Normal [facility] Absolute lymphocyte countOrd ered By: Jeremy Lockett on 01-12-2025 Lymphocytes Auto (Unsp spec) [#/Vol] 0.63 10*3/uL Low 0.83-4.51 [facility] Absolute neutrophil countOrd ered By: Jeremy Lockett on 01-12-2025 Neutrophils (Bld) [#/Vol] 2.9 10*3/uL 2.0-7.7 [facility] Anion gap in Serum or Plasma Ordered By: Jeremy Lockett on 01-12-2025 Anion gap [Moles/Vol] 13 mmol/L 5-15 [facility] Automated lymphocyte count a s percentage of total leukocytesOrdered By: Jeremy Lockett on 01-12-2025 Lymphocytes/100 WBC Auto (Unsp spec) 15.7 % Low 19-41 [facility] BUN/creatinine ratioOrdered By: Jeremy Lockett on 01-12-2025 Urea nitrogen/Creatinine [Mass ratio] 27.8 mg/mg High 10-20 [facility] Basophil percentageOrdered B y: Jeremy Lockett on 01-12-2025 Basophils/100 WBC (Bld) 0.2 % 0-1 [facility] Bedside Glucoseon 01-12-2025 FINGERSTICK GLU 222 mg/dL High 74-106 [facility] Comment on above: Result Comment: YUKI GEMENT OF PATIENT CARE PER NURSING PROTOCOL Performed By: #### L 501.080 #### [facility] [address] [place], [address] FINGERSTICK GLU 237 mg/dL High 74-106 [facility] Comment on above: Result Comment: YUKI GEMENT OF PATIENT CARE PER NURSING PROTOCOL Performed By: #### L 501.080 #### [facility] [address] [place], [address] Bilirubin Test strip Ql (U)O rdered By: Jeremy Lockett on 01-12-2025 Bilirubin Ql (U) 3 mg/dL High Negative [facility] Comment on above: COLOR OF URINE MAY A FFECT DIPSTICK RESULTS. Bilirubin, totalOrdered By: Jeremy Lockett on 01-12-2025 Bilirubin [Mass/Vol] 12.50 mg/dL High 0.00-1.30 [facility] CA 19-9 agOrdered By: Sofia Webber on 01-12-2025 CA 19-9 ag 328 U/mL High 0-35 [facility] Comment on above: [employer] El ectrochemiluminescence Immunoassay(ECLIA)Values obtained with different assay methods or kits cannotbe used interchangeably. Results cannot be interpreted asabsolute evidence of the presence or absence of malignantdisease. CBC W/Diff, Automatedon 12-20 Absolute Lymph 0.63 X10 3/uL Low 0.83-4.51 [facility] Comment on above: Performed By: #### L 500.4050, L100.0100, L501.2450 #### [facility] [address] [place], [address] Absolute Neut 2.9 X10 3/uL Normal 2.0-7.7 [facility] Comment on above: Performed By: #### L 500.4050, L100.0100, L501.2450 #### [facility] [address] [place], [address] Basophils/100 WBC (Bld) 0.2 % Normal 0-1 [facility] Comment on above: Performed By: #### L 500.4050, L100.0100, L501.2450 #### [facility] [address] [place], [address] Eosinophils/100 WBC (Bld) 1.2 % Normal 0-5 [facility] Comment on above: Performed By: #### L 500.4050, L100.0100, L501.2450 #### [facility] [address] [place], [address] Erythrocyte distribution width (RBC) [Ratio] 13.9 % Normal 11.6-14.6 [facility] Comment on above: Performed By: #### L 500.4050, L100.0100, L501.2450 #### [facility] [address] [place], [address] Hematocrit (Bld) [Volume fraction] 40.2 % Normal 40-54 [facility] Comment on above: Performed By: #### L 500.4050, L100.0100, L501.2450 #### [facility] [address] [place], [address] Hemoglobin (Bld) [Mass/Vol] 13.9 g/dL Normal 13.0-16.5 [facility] Comment on above: Performed By: #### L 500.4050, L100.0100, L501.2450 #### [facility] [address] [place], [address] IG% 0.500 Normal 0.0-0.9 [facility] Comment on above: Result Comment: IG% - Immature Granulocytes (promyelocytes, myelocytes and metamyelocytes) > 1% indicates that a LEFT SHIFT is Present. Performed By: #### L 500.4050, L100.0100, L501.2450 #### [facility] [address] [place], [address] Lymphocytes/100 WBC (Bld) 15.7 % Low 19-41 [facility] Comment on above: Performed By: #### L 500.4050, L100.0100, L501.2450 #### [facility] [address] [place], [address] MCH (RBC) [Entitic mass] 29.6 pg Normal 27.0-32.0 [facility] Comment on above: Performed By: #### L 500.4050, L100.0100, L501.2450 #### [facility] [address] [place], [address] MCHC (RBC) [Mass/Vol] 34.6 g/dL Normal 32-36 [facility] Comment on above: Performed By: #### L 500.4050, L100.0100, L501.2450 #### [facility] [address] [place], [address] MCV (RBC) [Entitic vol] 85.5 fL Normal 80-94 [facility] Comment on above: Performed By: #### L 500.4050, L100.0100, L501.2450 #### [facility] [address] [place], [address] Monocytes/100 WBC (Bld) 9.7 % Normal 0-10 [facility] Comment on above: Performed By: #### L 500.4050, L100.0100, L501.2450 #### [facility] [address] [place], [address] Neutrophils/100 WBC (Bld) 72.7 % High 47-70 [facility] Comment on above: Performed By: #### L 500.4050, L100.0100, L501.2450 #### [facility] [address] [place], [address] Nucleated RBC (Bld) [#/Vol] 0 10*3/uL Normal 0-5 [facility] Comment on above: Performed By: #### L 500.4050, L100.0100, L501.2450 #### [facility] [address] [place], [address] Platelet mean volume (Bld) [Entitic vol] 10.1 fL Normal 6.2-12.0 [facility] Comment on above: Performed By: #### L 500.4050, L100.0100, L501.2450 #### [facility] [address] [place], [address] Platelets (Bld) [#/Vol] 239 10*3/uL Normal 150-450 [facility] Comment on above: Performed By: #### L 500.4050, L100.0100, L501.2450 #### [facility] [address] [place], [address] RBC (Bld) [#/Vol] 4.70 10*6/uL Normal 4.6-6.2 [facility] Comment on above: Performed By: #### L 500.4050, L100.0100, L501.2450 #### [facility] [address] [place], [address] RDW SD 43.8 fl Normal 35.1-43.9 [facility] Comment on above: Performed By: #### L 500.4050, L100.0100, L501.2450 #### [facility] [address] [place], [address] WBC (Bld) [#/Vol] 4.0 10*3/uL Low 4.4-11.0 [facility] Comment on above: Performed By: #### L 500.4050, L100.0100, L501.2450 #### [facility] [address] [place], [address] CRPon 01-12-2025 C-REACTIVE PROT 5.58 mg/L High 0.0-3.0 [facility] Comment on above: Performed By: #### L 501.080 #### [facility] [address] [place], [address] Carbon dioxide, total [Moles /volume] in Central venous bloodOrdered By: Jeremy Lockett on 01-12-2025 CO2 [Moles/Vol] 23.0 mmol/L 21.0-32.0 [facility] Chloride assayOrdered By: Hamilton Lockett on 01-12-2025 Chloride [Moles/Vol] 97 mmol/L Low 98-108 [facility] Comprehensive Metabolic Prof ilon 01-12-2025 Albumin [Mass/Vol] 3.9 g/dL Normal 3.4-4.8 [facility] Comment on above: Performed By: #### L 500.4050, L100.0100, L501.2450 ####[facility] [address] [place], [address] Albumin/Globulin [Mass ratio] 1.3 {ratio} Normal 0.9-2.4 [facility] Comment on above: Performed By: #### L 500.4050, L100.0100, L501.2450 ####[facility] [address] [place], [address] ALK PHOS 292 U/L High 40-129 [facility] Comment on above: Performed By: #### L 500.4050, L100.0100, L501.2450 ####[facility] [address] [place], [address] ALT [Catalytic activity/Vol] 112 U/L High <=46 [facility] Comment on above: Performed By: #### L 500.4050, L100.0100, L501.2450 ####[facility] [address] [place], [address] AST [Catalytic activity/Vol] 51 U/L High <=37 [facility] Comment on above: Performed By: #### L 500.4050, L100.0100, L501.2450 ####[facility] [address] [place], [address] Bilirubin [Mass/Vol] 12.50 mg/dL High 0.00-1.30 [facility] Comment on above: Performed By: #### L 500.4050, L100.0100, L501.2450 ####[facility] [address] [place], [address] BUN/CRE 27.8 RATIO High 10-20 [facility] Comment on above: Performed By: #### L 500.4050, L100.0100, L501.2450 ####[facility] [address] [place], [address] Calcium [Mass/Vol] 9.2 mg/dL Normal 7.6-11.0 [facility] Comment on above: Performed By: #### L 500.4050, L100.0100, L501.2450 ####[facility] [address] [place], [address] Chloride [Moles/Vol] 97 mmol/L Low 98-108 [facility] Comment on above: Performed By: #### L 500.4050, L100.0100, L501.2450 ####[facility] [address] [place], [address] CO2 [Moles/Vol] 23.0 mmol/L Normal 21.0-32.0 [facility] Comment on above: Performed By: #### L 500.4050, L100.0100, L501.2450 ####[facility] [address] [place], [address] Creatinine [Mass/Vol] 0.81 mg/dL Normal 0.70-1.20 [facility] Comment on above: Result Comment: Icte miky present, Results may be affected. Performed By: #### L 500.4050, L100.0100, L501.2450 ####[facility] [address] [place], [address] ECRCL 91.67 ml/min Normal 50-250 [facility] Comment on above: Performed By: #### L 500.4050, L100.0100, L501.2450 ####[facility] [address] [place], [address] GAP 13 Normal 5-15 [facility] Comment on above: Performed By: #### L 500.4050, L100.0100, L501.2450 ####[facility] [address] [place], [address] GFR/1.73 sq M.predicted among non-blacks MDRD (S/P/Bld) [Vol rate/Area] 96 mL/min/{1.73_m2} Normal >60 [facility] Comment on above: Result Comment: mL/m in/1.73m2 CKD-EPI Creatinine Equation (2020) Performed By: #### L 500.4050, L100.0100, L501.2450 ####[facility] [address] [place], [address] Globulin (S) [Mass/Vol] 2.9 g/dL Normal 2.2-4.2 [facility] Comment on above: Performed By: #### L 500.4050, L100.0100, L501.2450 ####[facility] [address] [place], [address] Glucose [Mass/Vol] 374 mg/dL High 70-99 [facility] Comment on above: Performed By: #### L 500.4050, L100.0100, L501.2450 ####[facility] [address] [place], [address] Potassium [Moles/Vol] 4.0 mmol/L Normal 3.3-5.1 [facility] Comment on above: Performed By: #### L 500.4050, L100.0100, L501.2450 ####[facility] [address] [place], [address] Sodium [Moles/Vol] 133 mmol/L Normal 133-145 [facility] Comment on above: Performed By: #### L 500.4050, L100.0100, L501.2450 ####[facility] [address] [place], [address] T PROT 6.8 g/dL Normal 5.9-8.4 [facility] Comment on above: Performed By: #### L 500.4050, L100.0100, L501.2450 ####[facility] [address] [place], [address] Urea nitrogen [Mass/Vol] 22 mg/dL High 4-19 [facility] Comment on above: Performed By: #### L 500.4050, L100.0100, L501.2450 ####[facility] [address] [place], [address] Emergency Department Summary on 01-12-2025 Emergency Department Summary [facility] Medical Records Department [address] [place] [address] Emergency Department Summary 01/12/25 MR#: [id number] Acct: [id number] Name: ERICK GAUTAM Rep #: [id number] : 1955 69 From: Jeremy Lockett MD [...] well as quintin colored stools and jaundice. [facility] Medical History Umbilical hernia Gallbladder problem Nausea [...] cm un (more content not included)... Normal [facility] Eosinophil percentageOrdered By: Jeremy Lockett on 01-12-2025 Eosinophils/100 WBC (Bld) 1.2 % 0-5 [facility] Erythrocyte Sed Rateon 01-12 SED RATE 27 mm/hr High 0-20 [facility] Comment on above: Performed By: #### L 501.080 #### [facility] [address] [place], [address] Erythrocyte distribution wid th ratioOrdered By: Jeremy Lockett on 01-12-2025 Erythrocyte distribution width (RBC) [Ratio] 13.9 % 11.6-14.6 [facility] Erythrocyte distribution wid th standard deviationOrdered By: Jeremy Lockett on 01-12-2025 Erythrocyte distribution width (RBC) [Ratio] 43.8 fl 35.1-43.9 [facility] Erythrocyte sedimentation ra teOrdered By: Trevon Friend on 01-12-2025 ESR (Bld) [Velocity] 27 mm/h High 0-20 [facility] Glomerular filtration rate ( GFR) estimation/1.73 sq m using serum, plasma, or whole bOrdered By: Jeremy Lockett on 01-12-2025 GFR/1.73 sq M.predicted among non-blacks MDRD (S/P/Bld) [Vol rate/Area] 96 mL/min/{1.73_m2} >60 [facility] Comment on above: mL/min/1.73m2 CKD-EP I Creatinine Equation (2020) H AND P Exam - Hospitaliston 01-12-2025 H&P Exam - Hospitalist [facility] Medical Records Department [address] [place] [address] H P Exam - Hospitalist 01/12/25 1336 MR#: [id number] Acct: [id number] Name: ERICK GAUTAM Rep #: [id number] : 1955 69 From: Matilde [place] MD PCP: Dr. Belle Monk MD Status:REG ER Location: ED HPI - General General Date of Admission: 01/12/25 Date of Service: 01/12/25 Chief Complaint: RUQ pain, jaundice HPI Narrative ERICK GAUTAM, is a 69-year-old male with history of diabetes recently switched from Januvia to metformin who presented to [facility] ED 01/12/2025 with 2-1/2 weeks [...] chills, no other new or acute complaints. [facility] Medical History (Updated 01/12/25 @ 13:37 [...] 72.7 H, Lymph % (Auto) 15.7 L, Gillespie % (Auto) 9.7, Eos % (Auto) 1.2, Baso % (Auto) 0.2, Absolute Neuts (auto) 2.9, Absolute Lymphs (auto) 0.63 L, Nucleated RBC % 0, So (more content not included)... Normal [facility] Hematocrit Auto (Bld) [Volum e fraction]Ordered By: Jeremy Lockett on 01-12-2025 Hematocrit (Bld) [Volume fraction] 40.2 % 40-54 [facility] Hemoglobin measurementOrdere d By: Jeremy Lockett on 01-12-2025 Hemoglobin (Bld) [Mass/Vol] 13.9 g/dL 13.0-16.5 [facility] IgEOrdered By: Trevon acosta on 01-12-2025 IgE 37 IU/mL 6-495 [facility] Immature granulocytes/100 WB C Auto (Bld)Ordered By: Jeremy Lockett on 01-12-2025 Immature granulocytes/100 WBC (Bld) 0.500 % 0.0-0.9 [facility] Comment on above: IG% - Immature Granu locytes (promyelocytes, myelocytes and metamyelocytes) > 1% indicates that a LEFT SHIFT is Present. Ketones Test strip Ql (U)Ord ered By: Jeremy Lockett on 01-12-2025 Ketones Ql (U) 5 mg/dl High Negative [facility] LDHon 01-12-2025 LDH 143 U/L Normal 87-241 [facility] Comment on above: Performed By: #### L 501.080 #### [facility] [address] [place], [address] Laboratory - Chemistry and C hemistry - challengeOrdered By: Jeremy Lockett on 01-12-2025 AST [Catalytic activity/Vol] 51 U/L High <38 [facility] Lactate dehydrogenase (LDH) measurementOrdered By: Trevon Webber on 01-12-2025 LDH [Catalytic activity/Vol] 143 U/L 87-241 [facility] Lipaseon 01-12-2025 Lipase [Catalytic activity/Vol] 28 U/L Normal 13-75 [facility] Comment on above: Result Comment: Dana turner note: LIPASE revised reference range effective 22. New Lipase methodology. Expected to produce lower values than the previous assay method. NEW Reference Range: 13 - 75 U/L Performed By: #### L 500.4050, L100.0100, L501.2450 ####[facility] [address] [place], [address] Lipase measurementOrdered By : Jeremy Lockett on 01-12-2025 Lipase [Catalytic activity/Vol] 28 U/L 13-75 [facility] Comment on above: Please note:LIPASE r evised reference range effective 22. New Lipase methodology. Expected to produce lower values than the previous assay method. NEW Reference Range: 13 - 75 U/L MCV (mean corpuscular volume ) determinationOrdered By: Jeremy Lockett on 01-12-2025 MCV (RBC) [Entitic vol] 85.5 fL 80-94 [facility] MR/CON.PCM.GIon 01-12-2025 MR/CON.PCM.GI [facility] Medical Records Department [address] [place] [address] Consultation - 01/12/25 1821 MR#: [id number] Acct: [id number] Name: ERICK GAUTAM Rep #: [id number] : 1955 69 From: Trevon Friend DO PCP: Dr. Belle Monk MD Status:ADM IN [facility] Data Date of Consult: 01/12/25 [...] 72.7 H, Lymph % (Auto) 15.7 L, Gillespie % (Auto) 9.7, Eos % (Auto) 1.2, [...] Clarity Clear, Urine pH 6.0, Ur Specific Newcomb 1.015, (more content not included)... Normal [facility] MRCP Abdomen without Contras ton 01-12-2025 MRCP Abdomen without Contrast [facility] [address] [place] [address] MRCP Abdomen without Contrast MR#: [id number] Acct: [id number] Name: ERICK GAUTAM Rep #: [id number] : 1955 M 69 From: Marta marinelli MD PCP: Dr. Belle Monk MD Status: ADM IN Study: MRCP Abdomen without Contrast Date of Exam: Exam# [id number] Ordering Dr: Trevon Webber DO PROCEDURE: MRCP [...] pancreatic duct. Left renal cyst. Reading Location: [facility] CC: Dr. Belle Monk MD; Trevon Webber DO [employer] Engineer: Signed Normal [facility] Magnetic resonance imaging r eportOrdered By: Marta Villeda on 01-12-2025 Study report [facility] [address] [place] [address] MRCP Abdomen without Contrast MR#: [id number] Acct: [id number] Name: ERICK GAUTAM Rep #: [id number] : 1955 M 69 From: Sukhdeep Villeda MD PCP: Dr. Belle Monk MD Status: ADM IN Study:MRCP Abdomen without Contrast Date of E xam: 01/12/25 Exam# [id number] Ordering Dr: Larry Webber DO PROCEDURE: MRCP [...] pancreatic duct. Left renal cyst. Reading Location: [place] [address] CC: Dr. Belle Monk MD; Trevon Webber, DO ~ [employer] Engineer: Signed [facility] Mean corpuscular hemoglobin (MCH) determinationOrdered By: Jeremy Lockett on 01-12-2025 MCH (RBC) [Entitic mass] 29.6 pg 27.0-32.0 [facility] Mean corpuscular hemoglobin concentration (MCHC) determinationOrdered By: Jeremy Lockett on 01-12-2025 MCHC (RBC) [Mass/Vol] 34.6 g/dL 32-36 [facility] Mean platelet volume determi nationOrdered By: Jeremy Lockett on 01-12-2025 Platelet mean volume (Bld) [Entitic vol] 10.1 fL 6.2-12.0 [facility] Microscopic analysis of urin e for red blood cells (RBC)Ordered By: Jeremy Lockett on 01-12-2025 Microscopic analysis of urine for red blood cells (RBC) 5-10 SEEN /hpf 0-5 [facility] Monocyte percentageOrdered B y: Jeremy Lockett on 01-12-2025 Monocytes/100 WBC (Bld) 9.7 % 0-10 [facility] Mucus LM Ql (Urine sed)Order ed By: Jeremy Lockett on 01-12-2025 Mucus Ql (Urine sed) RARE /hpf [facility] Neutrophil percentageOrdered By: Jeremy Lockett on 01-12-2025 Neutrophils/100 WBC (Bld) 72.7 % High 47-70 [facility] Nitrite Test strip Ql (U)Ord ered By: Jeremy Lockett on 01-12-2025 Nitrite Ql (U) Negative Negative [facility] No Panel InformationOrdered By: Trevon Webber on 01-12-2025 Hepatitis C Antibody Comment Comment . [facility] Comment on above: Not infected with HC V unless early or acute infection issuspected (which may be delayed in an immunocompromisedindividual), or other evidence exists to indicate HCVinfection.Performed at: - [facility] [id number] Director: Dylan Osorio PhD, Phone: [phone] Nucleated red blood cell per centageOrdered By: Jeremy Lockett on 01-12-2025 Nucleated RBC/100 WBC (Bld) [Ratio] 0 % 0-5 [facility] Platelet countOrdered By: Hamilton Lockett on 01-12-2025 Platelets (Bld) [#/Vol] 239 10*3/uL 150-450 [facility] Potassium measurement (mass/ volume)Ordered By: Jeremy Lockett on 01-12-2025 Potassium (Unsp spec) [Mass/Vol] 4.0 mmol/L 3.3-5.1 [facility] Protein Test strip Ql (U)Ord ered By: Jeremy Lockett on 01-12-2025 Protein Ql (U) 30 mg/dl High Negative [facility] RBC Auto (Bld) [#/Vol]Ordere d By: Jeremy Lockett on 01-12-2025 RBC (Bld) [#/Vol] 4.70 10*6/uL 4.6-6.2 [facility] Serum Maricruz Trinh virus cap rosy IgM antibody assay (units/volume)Ordered By: Trevon Webber on 01-12-2025 EBV capsid IgM Qn (S) [arb'U]/mL 0.0-35.9 [facility] Comment on above: Negative <36.0 Equiv ocal 36.0 - 43.9 Positive >43.9 Serum Maricruz Trinh virus nuc lear IgG antibody assay (units/volume)Ordered By: Trevon Webber on 01-12-2025 EBV nuclear IgG Qn (S) 155.0 U/mL High 0.0-17.9 [facility] Comment on above: Negative <18.0 Equiv ocal 18.0 - 21.9 Positive >21.9 Serum IgG subclass 1 measure ment (mass/volume)Ordered By: Trevon Webber on 01-12-2025 IgG subclass 1 (S) [Mass/Vol] 528 mg/dL 248-810 [facility] Serum IgG subclass 2 measure ment (mass/volume)Ordered By: Trevon Webber on 01-12-2025 IgG subclass 2 (S) [Mass/Vol] 287 mg/dL 130-555 [facility] Serum IgG subclass 3 measure ment (mass/volume)Ordered By: Trevon Webber on 01-12-2025 IgG subclass 3 (S) [Mass/Vol] 30 mg/dL 15-102 [facility] Serum classic neutrophil cyt oplasmic antibody assay (units/volume)Ordered By: Trevon Webber on 01-12-2025 Neutrophil cytoplasmic Ab.classic Qn (S) <1:20 titer Neg:<1:20 [facility] Comment on above: Note: Specimen is ic teric. Serum creatinine measurement (mass/volume)Ordered By: Jeremy Lockett on 01-12-2025 Creatinine [Mass/Vol] 0.81 mg/dL 0.70-1.20 [facility] Comment on above: Icterus present, Res ults may be affected. Serum globulin measurementOr dered By: Jeremy Lockett on 01-12-2025 Globulin (S) [Mass/Vol] 2.9 g/dL 2.2-4.2 [facility] Serum glucose measurement (m ass/volume)Ordered By: Jeremy Lockett on 01-12-2025 Glucose [Mass/Vol] 374 mg/dL High 70-99 [facility] Serum or plasma C reactive p rotein measurement (mass/volume)Ordered By: Trevon Webber on 01-12-2025 CRP [Mass/Vol] 5.58 mg/L High 0.0-3.0 [facility] Serum or plasma IgA measurem ent (mass/volume)Ordered By: Trevon Webber on 01-12-2025 IgA [Mass/Vol] 204 mg/dL 61-437 [facility] Serum or plasma IgG measurem ent (mass/volume)Ordered By: Trevon Webber on 01-12-2025 IgG [Mass/Vol] 1067 mg/dL 603-1613 [facility] IgG [Mass/Vol] Not Reportable [facility] Serum or plasma alanine ordoñez otransferase (ALT) measurementOrdered By: Jeremy Lockett on 01-12-2025 ALT [Catalytic activity/Vol] 112 U/L High <47 [facility] Serum or plasma albumin jenny urement (mass/volume)Ordered By: Jeremy Lockett on 01-12-2025 Albumin [Mass/Vol] 3.9 g/dL 3.4-4.8 [facility] Serum or plasma albumin/glob ulin mass ratioOrdered By: Jeremy Lockett on 01-12-2025 Albumin/Globulin [Mass ratio] 1.3 {ratio} 0.9-2.4 [facility] Serum or plasma alkaline mitzi sphatase measurementOrdered By: Jeremy Lockett on 01-12-2025 ALP [Catalytic activity/Vol] 292 U/L High 40-129 [facility] Serum or plasma calcium jenny urement (mass/volume)Ordered By: Jeremy Lockett on 01-12-2025 Calcium [Mass/Vol] 9.2 mg/dL 7.6-11.0 [facility] Serum or plasma cytomegalovi miky (CMV) IgM antibody assay (units/volume)Ordered By: Trevon Webber on 01-12-2025 CMV IgM Qn < 30.0 AU/mL 0.0-29.9 [facility] Comment on above: Negative <30.0 Equiv ocal 30.0 - 34.9 Positive >34.9A positive result is generally indicative of acuteinfection, reactivation or persistent IgM production.Performed at: [facility] [employer] [id number] Director: Dylan Osorio PhD, Phone: [phone] at: [facility] [id number] Director: Jayde Casanova MD, Phone: [phone] Serum or plasma hepatitis B virus surface antigen detection by immunoassayOrdered By: Trevon Webber on 01-12-2025 HBV surface Ag IA Ql Negative Negative [facility] Serum or plasma urea nitroge n measurement (mass/volume)Ordered By: Jeremy Lockett on 01-12-2025 Urea nitrogen [Mass/Vol] 22 mg/dL High 4-19 [facility] Serum perinuclear neutrophil cytoplasmic antibody titer by immunofluorescenceOrdered By: Trevon Webber on 06-25-2025 Neutrophil cytoplasmic Ab.perinuclear IF (S) [Titer] <1:20 titer Neg:<1:20 [facility] Comment on above: Note: Specimen is ic teric.The presence of positive fluorescence exhibiting P-ANCA orC-ANCA patterns alone is not specific for the diagnosis ofWegener's Granulomatosis (WG) or microscopic polyangiitis.Decisions about treatment should not be based solely onANCA IFA results. The [employer] Consensusrecommends follow up testing of positive sera with both MI-3 and MPO-ANCA enzyme immunoassays. As many as 5% serumsamples are positive only by EIA. Ref. AM J Clin [id number];111:507-513. Sodium levelOrdered By: Jeremy Lockett on 01-12-2025 Sodium [Moles/Vol] 133 mmol/L 133-145 [facility] Squamous epithelial cells de tection in urine sediment by light microscopyOrdered By: Jeremy Lockett on 01-12-2025 Epithelial cells.squamous LM Ql (Urine sed) 0-5 SEEN /hpf 0-5 [facility] Surgery Visit Reporton 01-12 Surgery Visit Report [facility] [address] [place] [address] OFFICE VISIT Date of Service: 01/12/25 MR#: [id number] Acct: [id number] Name: ERICK GAUTAM Rep #: [id number] : 1955 Provider: Dr. Freeman elkins MD Age/Sex: 69/M Location: [facility] Status: Signed Intake Vital Signs 07/20/24 15:06 [...] you fallen in the past year?: No PFSH Medical History (Updated 01/12/25 @ 08:53 by [...] General: cooperative Orientation: alert and oriented x3 HENND Head: normal to inspection Eyes Sclera: scleral [...] evaluation by GI. Freeman Stauffer MD Pager: [facility] [address] [place] [address], [address] [place] [address] Office: Coding Level of Care Code Off vis,new,level 3 Diagnoses Gallbladder problem K82.9 RUQ pain R10.11 Clinical Quality Measures Falls Risk Screening/Assistive Devices Have you fallen (more content not included)... Normal [facility] Total proteinOrdered By: Gely Lockett on 01-12-2025 Protein [Mass/Vol] 6.8 g/dL 5.9-8.4 [facility] Urinalysis, Completeon 01-12 Mucus Ql (Urine sed) RARE Normal [facility] Comment on above: Order Comment: COLOR OF URINE MAY AFFECT DIPSTICK RESULTS.CLEAN CATCH Performed By: #### L 501.080 #### [facility] [address] [place], [place], [id number] BACTERIA 2+ /hpf Normal None Seen [facility] Comment on above: Order Comment: COLOR OF URINE MAY AFFECT DIPSTICK RESULTS.CLEAN CATCH Performed By: #### L 501.080 #### [facility] [address] [place], [address] EPI,SQUAMOUS 0-5 SEEN Normal 0-5 [facility] Comment on above: Order Comment: COLOR OF URINE MAY AFFECT DIPSTICK RESULTS.CLEAN CATCH Performed By: #### L 501.080 #### [facility] [address] [place], [address] RBC 5-10 SEEN Normal 0-5 [facility] Comment on above: Order Comment: COLOR OF URINE MAY AFFECT DIPSTICK RESULTS.CLEAN CATCH Performed By: #### L 501.080 #### [facility] [address] [place], [address] WBC 0 SEEN Normal 0-5 [facility] Comment on above: Order Comment: COLOR OF URINE MAY AFFECT DIPSTICK RESULTS.CLEAN CATCH Performed By: #### L 501.080 #### [facility] [address] [place], [address] Urine clarityOrdered By: Gely Lockett on 01-12-2025 Clarity (U) Clear Clear [facility] Urine color determinationOrd ered By: Jeremy Lockett on 01-12-2025 Color (U) Berna Yellow [facility] Urine glucose detectionOrder ed By: Jeremy Lockett on 01-12-2025 Glucose Ql (U) 1000 mg/dl High Normal [facility] Urine leukocyte esterase det ection by dipstickOrdered By: Jeremy Lockett on 01-12-2025 Leukocyte esterase Test strip Ql (U) 25 /ul High Negative [facility] Urine pHOrdered By: Jeremy richardson on 01-12-2025 pH (U) 6.0 [pH] 5.0 - 8.0 [facility] Urine sediment bacteria coun t by microscopy (number/high power field)Ordered By: Jeremy Lockett on 01-12-2025 Bacteria LM.HPF (Urine sed) [#/Area] 2 /[HPF] None Seen [facility] Urine specific gravity measu rementOrdered By: Jeremy Lockett on 01-12-2025 Specific gravity (U) [Rel density] 1.015 1.002-1.03 0 [facility] Urine urobilinogen measureme ntOrdered By: Jeremy Bermudezshreyas on 01-12-2025 Urobilinogen Ql (U) 4 mg/dl High Normal [facility] White blood cell (WBC) count Ordered By: Jeremy Bermudezshreyas on 01-12-2025 WBC (Bld) [#/Vol] 4.0 10*3/uL Low 4.4-11.0 [facility] White blood cell countOrdere d By: Jeremy Lockett on 01-12-2025 White blood cell count 0 SEEN /hpf 0-5 [facility] Abdomen Limitedon 01-05-2025 Abdomen Limited [facility] [address] [place] [address] Abdomen Limited MR#: [id number] Acct: [id number] Name: ERICK GAUTAM Rep #: [id number] : 1955 M 69 From: He malcolm MD PCP: Dr. Belle Monk MD Status: REG CLI Study: Abdomen Limited Date of Exam: 01/05/25 Exam# [id number] Ordering Dr: Belle Monk MD PROCEDURE: ABDOMEN [...] out. Dilated common bile duct. Reading Location: [facility] CC: Dr. Belle Monk MD [employer] Engineer: Signed Normal [facility] Lipaseon 01-05-2025 Lipase [Catalytic activity/Vol] 35 U/L Normal 13-75 [facility] Comment on above: Order Comment: JEREMY Lugo ADD A STAT LIPASE FROM 01/04/25 Result Comment: Dana turner note: LIPASE revised reference range effective 22. New Lipase methodology. Expected to produce lower values than the previous assay method. NEW Reference Range: 13 - 75 U/L Performed By: #### L 501.080 #### [facility] [address] [place], [address] Absolute lymphocyte countOrd ered By: Belle Monk on 01-04-2025 Lymphocytes Auto (Unsp spec) [#/Vol] 0.87 10*3/uL 0.83-4.51 [facility] Absolute neutrophil countOrd ered By: Belle Monk on 01-04-2025 Neutrophils (Bld) [#/Vol] 3.5 10*3/uL 2.0-7.7 [facility] Automated lymphocyte count a s percentage of total leukocytesOrdered By: Belle Monk on 01-04-2025 Lymphocytes/100 WBC Auto (Unsp spec) 18.3 % Low 19-41 [facility] Basophil percentageOrdered B y: Belle Monk on 01-04-2025 Basophils/100 WBC (Bld) 0.2 % 0-1 [facility] Bilirubin directOrdered By: Belle Monk on 01-04-2025 Bilirubin.direct [Mass/Vol] 4.87 mg/dL High 0.00-0.30 [facility] Bilirubin, totalOrdered By: Belle Monk on 01-04-2025 Bilirubin [Mass/Vol] 6.87 mg/dL High 0.00-1.30 [facility] CBC W/Diff, Automatedon 12-19 Absolute Lymph 0.87 X10 3/uL Normal 0.83-4.51 [facility] Comment on above: Performed By: #### L 501.080 #### [facility] [address] [place], [address] Absolute Neut 3.5 X10 3/uL Normal 2.0-7.7 [facility] Comment on above: Performed By: #### L 501.080 #### [facility] [address] [place], [address] Basophils/100 WBC (Bld) 0.2 % Normal 0-1 [facility] Comment on above: Performed By: #### [id number] #### [facility] [address] [place], [address] Eosinophils/100 WBC (Bld) 1.1 % Normal 0-5 [facility] Comment on above: Performed By: #### L 501.080 #### [facility] [address] [place], [address] Erythrocyte distribution width (RBC) [Ratio] 13.6 % Normal 11.6-14.6 [facility] Comment on above: Performed By: #### L 501.080 #### [facility] [address] [place], [address] Hematocrit (Bld) [Volume fraction] 42.5 % Normal 40-54 [facility] Comment on above: Performed By: #### L 501.080 #### [facility] [address] [place], [address] Hemoglobin (Bld) [Mass/Vol] 14.5 g/dL Normal 13.0-16.5 [facility] Comment on above: Performed By: #### L 501.080 #### [facility] [address] [place], [address] IG% 0.200 Normal 0.0-0.9 [facility] Comment on above: Result Comment: IG% - Immature Granulocytes (promyelocytes, myelocytes and metamyelocytes) > 1% indicates that a LEFT SHIFT is Present. Performed By: #### L 501.080 #### [facility] [address] [place], [address] Lymphocytes/100 WBC (Bld) 18.3 % Low 19-41 [facility] Comment on above: Performed By: #### L [id number] #### [facility] [address] [place], [address] MCH (RBC) [Entitic mass] 29.2 pg Normal 27.0-32.0 [facility] Comment on above: Performed By: #### [id number] #### [facility] [address] [place], [address] MCHC (RBC) [Mass/Vol] 34.1 g/dL Normal 32-36 [facility] Comment on above: Performed By: #### [id number] #### [facility] [address] [place], [address] MCV (RBC) [Entitic vol] 85.7 fL Normal 80-94 [facility] Comment on above: Performed By: #### [id number] #### [facility] [address] [place], [address] Monocytes/100 WBC (Bld) 6.5 % Normal 0-10 [facility] Comment on above: Performed By: #### L [id number] #### [facility] [address] [place], [address] Neutrophils/100 WBC (Bld) 73.7 % High 47-70 [facility] Comment on above: Performed By: #### L 501.080 #### [facility] [address] [place], [address] Nucleated RBC (Bld) [#/Vol] 0 10*3/uL Normal 0-5 [facility] Comment on above: Performed By: #### L 501.080 #### [facility] [address] [place], [address] Platelet mean volume (Bld) [Entitic vol] 9.8 fL Normal 6.2-12.0 [facility] Comment on above: Performed By: #### L 501.080 #### [facility] [address] [place], [address] Platelets (Bld) [#/Vol] 251 10*3/uL Normal 150-450 [facility] Comment on above: Performed By: #### L 501.080 #### [facility] [address] [place], [address] RBC (Bld) [#/Vol] 4.96 10*6/uL Normal 4.6-6.2 [facility] Comment on above: Performed By: #### L 501.080 #### [facility] [address] [place], [address] RDW SD 42.6 fl Normal 35.1-43.9 [facility] Comment on above: Performed By: #### L 501.080 #### [facility] [address] [place], [address] WBC (Bld) [#/Vol] 4.8 10*3/uL Normal 4.4-11.0 [facility] Comment on above: Performed By: #### L 501.080 #### [facility] [address] [place], [address] Eosinophil percentageOrdered By: Belle Monk on 01-04-2025 Eosinophils/100 WBC (Bld) 1.1 % 0-5 [facility] Erythrocyte distribution wid th ratioOrdered By: Belle Monk on 01-04-2025 Erythrocyte distribution width (RBC) [Ratio] 13.6 % 11.6-14.6 [facility] Erythrocyte distribution wid th standard deviationOrdered By: Belle Monk on 01-04-2025 Erythrocyte distribution width (RBC) [Ratio] 42.6 fl 35.1-43.9 [facility] Hematocrit Auto (Bld) [Volum e fraction]Ordered By: Belle Monk on 01-04-2025 Hematocrit (Bld) [Volume fraction] 42.5 % 40-54 [facility] Hemoglobin measurementOrdere d By: Belle Monk on 01-04-2025 Hemoglobin (Bld) [Mass/Vol] 14.5 g/dL 13.0-16.5 [facility] Immature granulocytes/100 WB C Auto (Bld)Ordered By: Belle Monk on 01-04-2025 Immature granulocytes/100 WBC (Bld) 0.200 % 0.0-0.9 [facility] Comment on above: IG% - Immature Granu locytes (promyelocytes, myelocytes and metamyelocytes) > 1% indicates that a LEFT SHIFT is Present. Laboratory - Chemistry and C hemistry - challengeOrdered By: Belle Monk on 01-04-2025 AST [Catalytic activity/Vol] 59 U/L High <38 [facility] Lipase measurementOrdered By : Belle Prjasmin on 01-04-2025 Lipase [Catalytic activity/Vol] 35 U/L 13-75 [facility] Comment on above: Please note:LIPASE r evised reference range effective 22. New Lipase methodology. Expected to produce lower values than the previous assay method. NEW Reference Range: 13 - 75 U/L Liver Profileon 01-04-2025 Albumin [Mass/Vol] 4.2 g/dL Normal 3.4-4.8 [facility] Comment on above: Performed By: #### L 501.080 #### [facility] [address] [place], [address] ALK PHOS 270 U/L High 40-129 [facility] Comment on above: Performed By: #### L 501.080 #### [facility] [address] [place], [address] ALT [Catalytic activity/Vol] 202 U/L High <=46 [facility] Comment on above: Performed By: #### L 501.080 #### [facility] [address] [place], [address] AST [Catalytic activity/Vol] 59 U/L High <=37 [facility] Comment on above: Performed By: #### [id number] #### [facility] [address] [place], [address] Bilirubin [Mass/Vol] 6.87 mg/dL High 0.00-1.30 [facility] Comment on above: Performed By: #### [id number] #### [facility] [address] [place], [address] Bilirubin.direct [Mass/Vol] 4.87 mg/dL High 0.00-0.30 [facility] Comment on above: Performed By: #### [id number] #### [facility] [address] [place], [address] Globulin (S) [Mass/Vol] 2.9 g/dL Normal 2.2-4.2 [facility] Comment on above: Performed By: #### [id number] #### [facility] [address] [place], [address] T PROT 7.1 g/dL Normal 5.9-8.4 [facility] Comment on above: Performed By: #### L 501.080 #### [facility] [address] [place], [address] MCV (mean corpuscular volume ) determinationOrdered By: Belle Monk on 01-04-2025 MCV (RBC) [Entitic vol] 85.7 fL 80-94 [facility] Mean corpuscular hemoglobin (MCH) determinationOrdered By: Belle Monk on 01-04-2025 MCH (RBC) [Entitic mass] 29.2 pg 27.0-32.0 [facility] Mean corpuscular hemoglobin concentration (MCHC) determinationOrdered By: Belle Monk on 01-04-2025 MCHC (RBC) [Mass/Vol] 34.1 g/dL 32-36 [facility] Mean platelet volume determi nationOrdered By: Belle Monk on 01-04-2025 Platelet mean volume (Bld) [Entitic vol] 9.8 fL 6.2-12.0 [facility] Monocyte percentageOrdered B y: Belle Monk on 01-04-2025 Monocytes/100 WBC (Bld) 6.5 % 0-10 [facility] Neutrophil percentageOrdered By: Belle Monk on 01-04-2025 Neutrophils/100 WBC (Bld) 73.7 % High 47-70 [facility] Nucleated red blood cell per centageOrdered By: Belle Monk on 01-04-2025 Nucleated RBC/100 WBC (Bld) [Ratio] 0 % 0-5 [facility] Platelet countOrdered By: Johnny Monk on 01-04-2025 Platelets (Bld) [#/Vol] 251 10*3/uL 150-450 [facility] RBC Auto (Bld) [#/Vol]Ordere d By: Belle Monk on 01-04-2025 RBC (Bld) [#/Vol] 4.96 10*6/uL 4.6-6.2 [facility] Serum globulin measurementOr dered By: Belle Monk on 01-04-2025 Globulin (S) [Mass/Vol] 2.9 g/dL 2.2-4.2 [facility] Serum or plasma alanine ordoñez otransferase (ALT) measurementOrdered By: Belle Monk on 01-04-2025 ALT [Catalytic activity/Vol] 202 U/L High <47 [facility] Serum or plasma albumin jenny urement (mass/volume)Ordered By: Belle Monk on 01-04-2025 Albumin [Mass/Vol] 4.2 g/dL 3.4-4.8 [facility] Serum or plasma alkaline mitzi sphatase measurementOrdered By: Belle Monk on 01-04-2025 ALP [Catalytic activity/Vol] 270 U/L High 40-129 [facility] Total proteinOrdered By: Jordon Monk on 01-04-2025 Protein [Mass/Vol] 7.1 g/dL 5.9-8.4 [facility] White blood cell (WBC) count Ordered By: Belle Monk on 01-04-2025 WBC (Bld) [#/Vol] 4.8 10*3/uL 4.4-11.0 [facility] Albumin DL <= 20 mg/L (U) [M ass/Vol]Ordered By: Belle Monk on 10-22-2024 Urine Random Microalbumin < 12.0 mg/L NO RANGE EST. [facility] Anion gap in Serum or Plasma Ordered By: Belle Monk on 10-22-2024 Anion gap [Moles/Vol] 11 mmol/L 5-15 [facility] BUN/creatinine ratioOrdered By: Belle Monk on 10-22-2024 Urea nitrogen/Creatinine [Mass ratio] 27.6 mg/mg High 10-20 [facility] Bilirubin, totalOrdered By: Belle Monk on 10-22-2024 Bilirubin [Mass/Vol] 0.88 mg/dL 0.00-1.30 [facility] Calculated very low density lipoprotein (VLDL) cholesterol measurementOrdered By: Belle Monk on 10-22-2024 Calculated very low density lipoprotein (VLDL) cholesterol measurement 8 mg/dL 5-40 [facility] VLDL Cholesterol 8 mg/dL 5-40 [facility] Carbon dioxide, total [Moles /volume] in Central venous bloodOrdered By: Belle Monk on 10-22-2024 CO2 [Moles/Vol] 25.9 mmol/L 21.0-32.0 [facility] Chloride assayOrdered By: Johnny Monk on 10-22-2024 Chloride [Moles/Vol] 103 mmol/L 98-108 [facility] Comprehensive Metabolic Prof ilon 10-22-2024 Albumin [Mass/Vol] 4.5 g/dL Normal 3.4-4.8 [facility] Comment on above: Performed By: #### L 501.080 #### [facility] [address] [place], [address] Albumin/Globulin [Mass ratio] 1.6 {ratio} Normal 0.9-2.4 [facility] Comment on above: Performed By: #### [id number] #### [facility] [address] [place], [address] ALK PHOS 94 U/L Normal 40-129 [facility] Comment on above: Performed By: #### [id number] #### [facility] [address] [place], [address] ALT [Catalytic activity/Vol] 32 U/L Normal <=46 [facility] Comment on above: Performed By: #### [id number] #### [facility] [address] [place], [address] AST [Catalytic activity/Vol] 22 U/L Normal <=37 [facility] Comment on above: Performed By: #### [id number] #### [facility] [address] [place], [address] Bilirubin [Mass/Vol] 0.88 mg/dL Normal 0.00-1.30 [facility] Comment on above: Performed By: #### [id number] #### [facility] [address] [place], [address] BUN/CRE 27.6 RATIO High 10-20 [facility] Comment on above: Performed By: #### L [id number] #### [facility] [address] [place], [address] Calcium [Mass/Vol] 9.3 mg/dL Normal 7.6-11.0 [facility] Comment on above: Performed By: #### L 501.080 #### [facility] [address] [place], [address] Chloride [Moles/Vol] 103 mmol/L Normal 98-108 [facility] Comment on above: Performed By: #### L [id number] #### [facility] [address] [place], [address] CO2 [Moles/Vol] 25.9 mmol/L Normal 21.0-32.0 [facility] Comment on above: Performed By: #### L [id number] #### [facility] [address] [place], [address] Creatinine [Mass/Vol] 0.87 mg/dL Normal 0.70-1.20 [facility] Comment on above: Performed By: #### L 501.080 #### [facility] [address] [place], [address] GAP 11 Normal 5-15 [facility] Comment on above: Performed By: #### L 501.080 #### [facility] [address] [place], [address] GFR/1.73 sq M.predicted among non-blacks MDRD (S/P/Bld) [Vol rate/Area] 93 mL/min/{1.73_m2} Normal >60 [facility] Comment on above: Result Comment: mL/m in/1.73m2 CKD-EPI Creatinine Equation (2020) Performed By: #### L [id number] #### [facility] [address] [place], [address] Globulin (S) [Mass/Vol] 2.7 g/dL Normal 2.2-4.2 [facility] Comment on above: Performed By: #### L [id number] #### [facility] [address] [place], [address] Glucose [Mass/Vol] 149 mg/dL High 70-99 [facility] Comment on above: Performed By: #### L 501.080 #### [facility] [address] [place], [address] Potassium [Moles/Vol] 4.1 mmol/L Normal 3.3-5.1 [facility] Comment on above: Performed By: #### L [id number] #### [facility] [address] [place], [address] Sodium [Moles/Vol] 140 mmol/L Normal 133-145 [facility] Comment on above: Performed By: #### L 501.080 #### [facility] [address] [place], [address] T PROT 7.2 g/dL Normal 5.9-8.4 [facility] Comment on above: Performed By: #### [id number] #### [facility] [address] [place], [address] Urea nitrogen [Mass/Vol] 24 mg/dL High 4-19 [facility] Comment on above: Performed By: #### L [id number] #### [facility] [address] [place], [address] Creatinine Unsp time (U) [Ma ss/Vol]Ordered By: Belle Monk on 10-22-2024 Creatinine (U) [Mass/Vol] 178.00 mg/dL 39.00-259. 00 [facility] GFR/1.73 sq M.predicted michelle g non-blacks MDRD (S/P/Bld) [Vol rate/Area]Ordered By: Belle Monk on 10-22-2024 Estimated GFR (MDRD) Non-Af Amer 93 >60 [facility] Comment on above: mL/min/1.73m2 CKD-EP I Creatinine Equation (2020) Glomerular filtration rate ( GFR) estimation/1.73 sq m using serum, plasma, or whole bOrdered By: Belle Monk on 10-22-2024 GFR/1.73 sq M.predicted among non-blacks MDRD (S/P/Bld) [Vol rate/Area] 93 mL/min/{1.73_m2} >60 [facility] Comment on above: mL/min/1.73m2 CKD-EP I Creatinine Equation (2020) Hemoglobin A1con 10-22-2024 HbA1c (Bld) [Mass fraction] 6.9 % Normal <=5.6 [facility] Comment on above: Performed By: #### L 501.080 #### [facility] [address] [place], [place], [id number] Hemoglobin A1c percentageOrd ered By: Belle Monk on 10-22-2024 HbA1c (Bld) [Mass fraction] 6.9 % >5.7 [facility] LDL calc ser/plasOrdered By: Belle Monk on 10-22-2024 Cholesterol in LDL [Mass/Vol] 46 mg/dL [facility] Comment on above: Aqfcxcdqjh=860-857 m g/dL & Higher Zmob=649 mg/dL or greater LDL Cholesterol, Calculated 46 mg/dL [facility] Comment on above: Maakqczcex=714-718 m g/dL & Higher Kbwo=316 mg/dL or greater Laboratory - Chemistry and C hemistry - challengeOrdered By: Belle Monk on 10-22-2024 AST [Catalytic activity/Vol] 22 U/L <38 [facility] Lipid Profileon 10-22-2024 CHOL:HDL 2.35 Normal [facility] Comment on above: Performed By: #### L 501.080 #### [facility] [address] [place], [place], [address] Cholesterol [Mass/Vol] 94 mg/dL Normal <=200 [facility] Comment on above: Result Comment: Chol esterol level, Desirable <200 mg/dL Borderline high cholesterol 200-239 mg/dL High cholesterol >=240 mg/dL Recommendations of the NCEP Adult Treatment Panel for the following risk-cutoff thresholds for the [place] population. Performed By: #### L [id number] #### [facility] [address] [place], [address] Cholesterol in HDL [Mass/Vol] 40 mg/dL Normal [facility] Comment on above: Result Comment: Marilyn onal Cholesterol Education Program (NCEP) guidelines: <40 mg/dL: Low HDL-cholesterol (major risk factor for CHD) >= 60 mg/dL: High HDL-cholesterol (negative risk factor for CHD) HDL-cholesterol is affected by a number of factors, e.g. smoking, exercise, hormones, sex and age. Performed By: #### L [id number] #### [facility] [address] [place], [address] Cholesterol in LDL [Mass/Vol] 46 mg/dL Normal [facility] Comment on above: Result Comment: Bord boaboo=432-371 mg/dL Higher Bfjv=220 mg/dL or greater Performed By: #### L 501.080 #### [facility] [address] [place], [address] Cholesterol in VLDL [Mass/Vol] 8 mg/dL Normal 5-40 [facility] Comment on above: Performed By: #### L 501.080 #### [facility] [address] [place], [address] Triglyceride [Mass/Vol] 42 mg/dL Normal [facility] Comment on above: Result Comment: The drugs N-Acetylcysteine and Metamizole may falsely depress this assay. Normal range: <150 mg/dL Borderline High: 150-199 mg/dL High: 200-499 mg/dL Very High: >500 mg/dL Performed By: #### L 501.080 #### [facility] [address] [place], [address] Microalb:Creat Ratio,Random URon 10-22-2024 Creatinine [Mass/Vol] 178.00 mg/dL Normal 39.00- 259. 00 [facility] Comment on above: Performed By: #### L 501.080 #### [facility] [address] [place], [address] MALB:CREAT UNABLE TO CALCULATE Normal [facility] Comment on above: Performed By: #### L 501.080 #### [facility] [address] [place], [place], [address] MICROALBUMIN,UR < 12.0 Normal NO RANGE EST. [facility] Comment on above: Performed By: #### L 501.080 #### [facility] [address] [place], [place], [address] Microalbumin/creat ratio urO rdered By: Belle Monk on 10-22-2024 Urine Microalbumin/Creatinine Ratio UNABLE TO CALCULATE mg/g CRE [facility] Urine microalbumin/creatinine ratio measurement UNABLE TO CALCULATE mg/g CRE [facility] Potassium (Unsp spec) [Mass/ Vol]Ordered By: Belle Monk on 10-22-2024 Potassium [Moles/Vol] 4.1 mmol/L 3.3-5.1 [facility] Potassium measurement (mass/ volume)Ordered By: Belle Monk on 10-22-2024 Potassium (Unsp spec) [Mass/Vol] 4.1 mmol/L 3.3-5.1 [facility] Random urine creatinine jenny urement (mass/volume)Ordered By: Belle Monk on 10-22-2024 Creatinine Unsp time (U) [Mass/Vol] 178.00 mg/dL 39.00-259. 00 [facility] Screening total cholesterol/ high density lipoprotein (HDL) cholesterol ratioOrdered By: Belle Monk on 10-22-2024 Cholesterol.total/Choles terol in HDL [Mass ratio] 2.35 {ratio} [facility] Serum creatinine measurement (mass/volume)Ordered By: Belle Monk on 10-22-2024 Creatinine [Mass/Vol] 0.87 mg/dL 0.70-1.20 [facility] Serum globulin measurementOr dered By: Belle Monk on 10-22-2024 Globulin (S) [Mass/Vol] 2.7 g/dL 2.2-4.2 [facility] Serum glucose measurement (m ass/volume)Ordered By: Belle Monk on 10-22-2024 Glucose [Mass/Vol] 149 mg/dL High 70-99 [facility] Serum or plasma alanine ordoñez otransferase (ALT) measurementOrdered By: Belle Monk on 10-22-2024 ALT [Catalytic activity/Vol] 32 U/L <47 [facility] Serum or plasma albumin jenny urement (mass/volume)Ordered By: Belle Monk on 10-22-2024 Albumin [Mass/Vol] 4.5 g/dL 3.4-4.8 [facility] Serum or plasma albumin/glob ulin mass ratioOrdered By: Belle Monk on 10-22-2024 Albumin/Globulin [Mass ratio] 1.6 {ratio} 0.9-2.4 [facility] Serum or plasma alkaline mitzi sphatase measurementOrdered By: Belle Monk on 10-22-2024 ALP [Catalytic activity/Vol] 94 U/L 40-129 [facility] Serum or plasma calcium jenny urement (mass/volume)Ordered By: Belle Monk on 10-22-2024 Calcium [Mass/Vol] 9.3 mg/dL 7.6-11.0 [facility] Serum or plasma cholesterol in HDL measurement (mass/volume)Ordered By: Belle Monk on 10-22-2024 Cholesterol in HDL [Mass/Vol] 40 mg/dL >40 [facility] Comment on above: National Cholesterol Education Program (NCEP) guidelines:<40 mg/dL: Low HDL-cholesterol (major risk factor for CHD)>= 60 mg/dL: High HDL-cholesterol (negative risk factor for CHD)HDL-cholesterol is affected by a number of factors, e.g. smoking, exercise, hormones, sex and age. Serum or plasma cholesterol measurement (mass/volume)Ordered By: Belle Monk on 10-22-2024 Cholesterol [Mass/Vol] 94 mg/dL <201 [facility] Comment on above: Cholesterol level, D esirable <200 mg/dLBorderline high cholesterol 200-239 mg/dLHigh cholesterol >=240 mg/dLRecommendations of the NCEP Adult Treatment Panel for the following risk-cutoff thresholds for the [place] population. Serum or plasma urea nitroge n measurement (mass/volume)Ordered By: Belle Monk on 10-22-2024 Urea nitrogen [Mass/Vol] 24 mg/dL High 4-19 [facility] Sodium levelOrdered By: Linda Monk on 10-22-2024 Sodium [Moles/Vol] 140 mmol/L 133-145 [facility] Total proteinOrdered By: Jordon Monk on 10-22-2024 Protein [Mass/Vol] 7.2 g/dL 5.9-8.4 [facility] Triglycerides measurementOrd ered By: Belle Monk on 10-22-2024 Triglyceride [Mass/Vol] 42 mg/dL <199 [facility] Comment on above: The drugs N-Acetylcy steine and Metamizole may falsely depress this assay. Normal range: <150 mg/dLBorderline High: 150-199 mg/dLHigh: 200-499 mg/dLVery High: >500 mg/dL Urine albumin measurement [facility] detection limit of 20 mg/L or less (mass/volume)Ordered By: Belle Monk on 10-22-2024 Albumin DL <= 20 mg/L (U) [Mass/Vol] < 12.0 mg/L NO RANGE EST. [facility] 12 Lead EKGon 07-20-2024 12 Lead EKG [facility] [address] [place] [address] 12 Lead EKG 07/20/24 1617 MR#: [id number] Acct: [id number] Name: ERICK GAUTAM Rep #: [id number] : 1955 69 From: Hector Brito MD [...] Abnormal ECG Confirmed by OBDULIO HERRERA, HECTOR ([id number]), material expeditor NIYA MCDOWELL ([id number]) on 07/22/2024 6:11:58 AM Referred By: Confirmed By: HECOTR BRITO MD 07/22/24 0611 Date Hector Brito MD CC: Dr. Gilbert Thompson MD; No Primary Care Physician Signed Normal [facility] Absolute neutrophil countOrd ered By: Gilbert Thompson on 07-20-2024 Neutrophils (Bld) [#/Vol] 4.5 10*3/uL 2.0-7.7 [facility] Basic Metabolic Profile (BMP )on 07-20-2024 BUN/CRE 15.2 RATIO Normal 10-20 [facility] Comment on above: Performed By: #### L 501.080 #### [facility] [address] [place], [address] CA,Total 9.5 mg/dL Normal 8.5-10.1 [facility] Comment on above: Performed By: #### L 501.080 #### [facility] [address] [place], [address] Chloride [Moles/Vol] 102 mmol/L Normal 98-107 [facility] Comment on above: Performed By: #### L 501.080 #### [facility] [address] [place], [address] CO2 [Moles/Vol] 29.0 mmol/L Normal 21.0-32.0 [facility] Comment on above: Performed By: #### L 501.080 #### [facility] [address] [place], [address] Creatinine [Mass/Vol] 1.12 mg/dL Normal 0.70-1.30 [facility] Comment on above: Result Comment: The validity of the calculated GFR GFRAA in patients over 70 years has not been determined. Clinical correlation is essential. Performed By: #### L 501.080 #### [facility] [address] [place], [address] ECRCL 74.43 ml/min Normal [facility] Comment on above: Performed By: #### L 501.080 #### [facility] [address] [place], [address] EST GFR - AA 84 mL/min Normal >60 [facility] Comment on above: Result Comment: Afri can [place] GFR Calc Performed By: #### L 501.080 #### [facility] [address] [place], [address] GAP 6 Normal 5-15 [facility] Comment on above: Performed By: #### L 501.080 #### [facility] [address] [place], [address] GFR/1.73 sq M.predicted among non-blacks MDRD (S/P/Bld) [Vol rate/Area] 69 mL/min/{1.73_m2} Normal >60 [facility] Comment on above: Result Comment: Non- GFR Calc Performed By: #### L 501.080 #### [facility] [address] [place], [address] Glucose [Mass/Vol] 474 mg/dL Invalid Interpretation Code 74-106 [facility] Comment on above: Result Comment: Crit ical Result(s) Called at: 17:22:04 07/20/2024 by: HAFSA RAE TO LEONARDA HICKS. Results read back by same. Glucose result greater than or equal to 200 mg/dL suggests DIABETES MELLITUS per A.D.A. criteria. Performed By: #### L 501.080 #### [facility] [address] [place], [address] Potassium [Moles/Vol] 3.8 mmol/L Normal 3.5-5.1 [facility] Comment on above: Performed By: #### L 501.080 #### [facility] [address] [place], [address] Sodium [Moles/Vol] 137 mmol/L Normal 136-145 [facility] Comment on above: Performed By: #### L 501.080 #### [facility] [address] [place], [address] Urea nitrogen [Mass/Vol] 17 mg/dL Normal 7-18 [facility] Comment on above: Performed By: #### L 501.080 #### [facility] [address] [place], [address] BUN Normal 7-18 [facility] Comment on above: Result Comment: DUPL ICATE ORDER Performed By: #### L 500.2500 ####[facility] [address] [place], [address] BUN/CRE Normal 10-20 [facility] Comment on above: Result Comment: DUPL ICATE ORDER Performed By: #### L 500.2500 ####[facility] [address] [place], [address] CA,Total Normal 8.5-10.1 [facility] Comment on above: Result Comment: DUPL ICATE ORDER Performed By: #### L 500.2500 ####[facility] [address] [place], [address] CL Normal 98-107 [facility] Comment on above: Result Comment: DUPL ICATE ORDER Performed By: #### L 500.2500 ####[facility] [address] [place], [address] CO2 Normal 21.0-32.0 [facility] Comment on above: Result Comment: DUPL ICATE ORDER Performed By: #### L 500.2500 ####[facility] [address] [place], [address] CREAT,SERUM Normal 0.70-1.30 [facility] Comment on above: Result Comment: DUPL ICATE ORDER Performed By: #### L 500.2500 ####[facility] [address] [place], [address] EST GFR Normal >60 [facility] Comment on above: Result Comment: DUPL ICATE ORDER Performed By: #### L 500.2500 ####[facility] [address] [place], [address] EST GFR - AA Normal >60 [facility] Comment on above: Result Comment: DUPL ICATE ORDER Performed By: #### L 500.2500 ####[facility] [address] [place], [address] GAP Normal 5-15 [facility] Comment on above: Result Comment: DUPL ICATE ORDER Performed By: #### L 500.2500 ####[facility] [address] [place], [address] GLU Normal 74-106 [facility] Comment on above: Result Comment: DUPL ICATE ORDER Performed By: #### L 500.2500 ####[facility] [address] [place], [address] Potassium Normal 3.5-5.1 [facility] Comment on above: Result Comment: DUPL ICATE ORDER Performed By: #### L 500.2500 ####[facility] [address] [place], [address] Basic Metabolic Profile (BMP) Normal 136-145 [facility] Comment on above: Result Comment: DUPL ICATE ORDER Performed By: #### L 500.2500 ####[facility] [address] [place], [address] Basophil percentageOrdered B y: Gilbert Thompson on 07-20-2024 Basophils/100 WBC (Bld) 0.3 % 0-1 [facility] Bedside Glucoseon 07-20-2024 FINGERSTICK GLU 483 mg/dL Invalid Interpretation Code 74-106 [facility] Comment on above: Result Comment: Dr Selin ly Followed MANAGEMENT OF PATIENT CARE PER NURSING PROTOCOL Performed By: #### L 501.080 #### [facility] [address] [place], [address] Bilirubin Test strip Ql (U)O rdered By: Gilbert Thompson on 07-20-2024 Bilirubin Ql (U) Negative Negative [facility] Blood urea nitrogen (BUN)/cr eatinine ratioOrdered By: Gilbert Thompson on 07-20-2024 Urea nitrogen/Creatinine [Mass ratio] 15.2 mg/mg 10- [facility] CBC W/Diff, Automatedon - Absolute Lymph 1.49 X10 3/uL Normal 0.83-4.51 [facility] Comment on above: Performed By: #### L 501.080 #### [facility] [address] [place], [address] Absolute Neut 4.5 X10 3/uL Normal 2.0-7.7 [facility] Comment on above: Performed By: #### L 501.080 #### [facility] [address] [place], [address] Basophils/100 WBC (Bld) 0.3 % Normal 0-1 [facility] Comment on above: Performed By: #### L 501.080 #### [facility] [address] [place], [address] Eosinophils/100 WBC (Bld) 1.4 % Normal 0-5 [facility] Comment on above: Performed By: #### L 501.080 #### [facility] [address] [place], [address] Erythrocyte distribution width (RBC) [Ratio] 12.5 % Normal 11.6-14.6 [facility] Comment on above: Performed By: #### L 501.080 #### [facility] [address] [place], [address] Hematocrit (Bld) [Volume fraction] 46.1 % Normal 40-54 [facility] Comment on above: Performed By: #### L 501.080 #### [facility] [address] [place], [address] Hemoglobin (Bld) [Mass/Vol] 16.7 g/dL High 13.0-16.5 [facility] Comment on above: Performed By: #### L 501.080 #### [facility] [address] [place], [address] IG% 0.300 Normal 0.0-0.9 [facility] Comment on above: Result Comment: IG% - Immature Granulocytes (promyelocytes, myelocytes and metamyelocytes) > 1% indicates that a LEFT SHIFT is Present. Performed By: #### L 501.080 #### [facility] [address] [place], [address] Lymphocytes/100 WBC (Bld) 22.5 % Normal 19-41 [facility] Comment on above: Performed By: #### L 501.080 #### [facility] [address] [place], [address] MCH (RBC) [Entitic mass] 30.8 pg Normal 27.0-32.0 [facility] Comment on above: Performed By: #### L 501.080 #### [facility] [address] [place], [address] MCHC (RBC) [Mass/Vol] 36.2 g/dL High 32-36 [facility] Comment on above: Performed By: #### L 501.080 #### [facility] [address] [place], [address] MCV (RBC) [Entitic vol] 84.9 fL Normal 80-94 [facility] Comment on above: Performed By: #### L 501.080 #### [facility] [address] [place], [address] Monocytes/100 WBC (Bld) 6.8 % Normal 0-10 [facility] Comment on above: Performed By: #### L 501.080 #### [facility] [address] [place], [address] Neutrophils/100 WBC (Bld) 68.7 % Normal 47-70 [facility] Comment on above: Performed By: #### L 501.080 #### [facility] [address] [place], [address] Nucleated RBC (Bld) [#/Vol] 0 10*3/uL Normal 0-5 [facility] Comment on above: Performed By: #### L 501.080 #### [facility] [address] [place], [address] Platelet mean volume (Bld) [Entitic vol] 9.1 fL Normal 6.2-12.0 [facility] Comment on above: Performed By: #### L 501.080 #### [facility] [address] [place], [address] Platelets (Bld) [#/Vol] 207 10*3/uL Normal 150-450 [facility] Comment on above: Performed By: #### L 501.080 #### [facility] [address] [place], [address] RBC (Bld) [#/Vol] 5.43 10*6/uL Normal 4.6-6.2 [facility] Comment on above: Performed By: #### L 501.080 #### [facility] [address] [place], [address] RDW SD 37.6 fl Normal 35.1-43.9 [facility] Comment on above: Performed By: #### L 501.080 #### [facility] [address] [place], [address] WBC (Bld) [#/Vol] 6.6 10*3/uL Normal 4.4-11.0 [facility] Comment on above: Performed By: #### L 501.080 #### [facility] [address] [place], [address] Carbon dioxide measurementOr dered By: Gilbertselin Thompson on 07-20-2024 CO2 [Moles/Vol] 29.0 mmol/L 21.0-32.0 [facility] Chloride measurementOrdered By: Gilbert Thompson on 07-20-2024 Chloride [Moles/Vol] 102 mmol/L 98-107 [facility] Emergency Department Summary on 07-20-2024 Emergency Department Summary [facility] Medical Records Department [address] [place] [address] Emergency Department Summary 07/20/24 MR#: [id number] Acct: [id number] Name: ERICK GAUTAM Rep #: [id number] : 1955 69 From: Gilbert Thompson MD PCP: Care Physician,No Primary Status:DEP ER Location: ED HPI History of Present Illness Chief Complaint: Hyperglycemia [facility] Medical History Cataract Home Medications ???Medication [...] % (Auto) 68.7 Lymph % (Auto) 22.5 Gillespie % (Auto) 6.8 Eos % (Auto) 1.4 Baso % (Auto) 0.3 Absolute Neuts (auto) 4.5 Absolute Lymphs (auto) 1.49 Nucleated RBC % 0 Sodium 137 Cancelled Potassium 3.8 Cancelled Chloride 102 Carbon Dioxide Anion Gap BUN Creatinine Estim Creat Clear Calc Est GFR (MDRD) Af Amer Est GFR (MDRD) Non-Af BUN/Creatinine Ratio Glucose Calcium Urine Color Urine Clarity Urine pH Ur Specific Newcomb Urine Protein Urine Glucose (UA) Urine Ketones [...] (Auto) Neut % (Auto) Lymph % (Auto) Gillespie % (Auto) Eos % (Auto) Baso % (Auto) Absolute Neuts (auto) Absolute Lymphs (auto) Nucleated RBC % Sodium Potassium Chloride Cancelled Carbon Dioxide 29.0 Cancelled Anion Gap 6 Cancelled BUN 17 Creatinine Estim Creat Clear Calc Est GFR (MDRD) Af Amer Est GFR (MDRD) Non-Af BUN/Creatinine Ratio Glucose Calcium Urine Color Urine Clarity Urine pH Ur Specific Newcomb Urine Protein Urine Glucose ( (more content not included)... Normal [facility] Emergency Department Summary [facility] Medical Records Department [address] [place] [address] Emergency Department Summary 07/20/24 MR#: [id number] Acct: [id number] Name: ERICK GAUTAM Rep #: [id number] : 1955 69 From: Gilbert Thompson MD PCP: Care Physician,No Primary Status:REG ER Location: ED HPI History of Present Illness Chief Complaint: Hyperglycemia Detail of Chief Complaint: Blood sugar greater than 500 Informant: patient and spouse/S.O. Onset/Context/Timing Onset: - (Reading done at gamer office, Dr. Weaver) Context: Gradual Onset Timing: [...] Prior similar symptoms: No Recent Illness/Hospitalization: No [facility] Medical History Cataract Home Medications ???Medication [...] bilaterally Sensor (more content not included)... Normal [facility] Eosinophil percentageOrdered By: Gilbert Thompson on 07-20-2024 Eosinophils/100 WBC (Bld) 1.4 % 0-5 [facility] Epithelial cells.squamous LM Ql (Urine sed)Ordered By: Gilbert Thompson on 07-20-2024 Epithelial cells.squamous LM.HPF (Urine sed) [#/Area] 0 /[HPF] 0-5 [facility] Erythrocyte distribution wid th (RBC) [Ratio]Ordered By: Gilbert Thompson on 07-20-2024 Erythrocyte distribution width (RBC) [Entitic vol] 37.6 fL 35.1-43.9 [facility] Erythrocyte distribution wid th ratioOrdered By: Gilbertselin Thompson on 07-20-2024 Erythrocyte distribution width (RBC) [Ratio] 12.5 % 11.6-14.6 [facility] Estimated glomerular filtrat ion rate (GFR) AmericanOrdered By: Gilbert Thompson on 07-20-2024 Estimated GFR (MDRD) Amer 84 mL/min >60 [facility] Comment on above: GFR Calc Estimation of creatinine immanuel aranceOrdered By: Gilbert Thompson on 07-20-2024 Estimated Creatinine Clearance Calc 74.43 ml/min [facility] Glomerular filtration rate ( GFR) estimationOrdered By: Gilbert Thompson on 07-20-2024 Estimated GFR (MDRD) Non-Af Amer 69 mL/min >60 [facility] Comment on above: Non- GFR Calc Glucose Ql (U)Ordered By: Vanita Thompson on 07-20-2024 Glucose (U) [Mass/Vol] 1000 mg/dL High Normal [facility] Glucose measurementOrdered B y: Gilbert Thompson on 07-20-2024 Glucose [Mass/Vol] 474 mg/dL High 74-106 [facility] Comment on above: Critical Result(s) C alled at: 17:22:04 07/20/2024 by: HAFSA RAE TO LEONARDA HICKS. Results read back by same.Glucose result greater than or equal to 200 mg/dLsuggests DIABETES MELLITUS per A.D.A. criteria. [facility] deOrdered By: Gilbert Thompson on 07-20-2024 Bedside Glucose (Misc Panel) 483 mg/dL High 74-106 [facility] Comment on above: Dr Marcelino Sharif NAGEMENT OF PATIENT CARE PER NURSING PROTOCOL Hematocrit Auto (Bld) [Volum e fraction]Ordered By: Gilbert Thompson on 07-20-2024 Hematocrit (Bld) [Volume fraction] 46.1 % 40-54 [facility] Hemoglobin measurementOrdere d By: Gilbert Thompson on 07-20-2024 Hemoglobin (Bld) [Mass/Vol] 16.7 g/dL High 13.0-16.5 [facility] Immature granulocytes/100 WB C Auto (Bld)Ordered By: Gilbert Thompson on 07-20-2024 Immature granulocytes/100 WBC (Bld) 0.300 % 0.0-0.9 [facility] Comment on above: IG% - Immature Granu locytes (promyelocytes, myelocytes and metamyelocytes) > 1% indicates that a LEFT SHIFT is Present. Ketones Test strip Ql (U)Ord ered By: Gilbert Thompson on 07-20-2024 Ketones Ql (U) 5 mg/dl High Negative [facility] Lymphocytes Auto (Unsp spec) [#/Vol]Ordered By: Gilbert Thompson on 07-20-2024 Lymphocytes (Bld) [#/Vol] 1.49 10*3/uL 0.83-4.51 [facility] Lymphocytes/100 WBC Auto (Un sp spec)Ordered By: Gilbert Thompson on 07-20-2024 Lymphocytes/100 WBC (Bld) 22.5 % 19-41 [facility] MCV (mean corpuscular volume ) determinationOrdered By: Gilbert Thompson on 07-20-2024 MCV (RBC) [Entitic vol] 84.9 fL 80-94 [facility] Mean corpuscular hemoglobin (MCH) determinationOrdered By: Gilbert Thompson on 07-20-2024 MCH (RBC) [Entitic mass] 30.8 pg 27.0-32.0 [facility] Mean corpuscular hemoglobin concentration (MCHC) determinationOrdered By: Gilbert Thompson on 07-20-2024 MCHC (RBC) [Mass/Vol] 36.2 g/dL High 32-36 [facility] Mean platelet volume determi nationOrdered By: Gilbert Thompson on 07-20-2024 Platelet mean volume (Bld) [Entitic vol] 9.1 fL 6.2-12.0 [facility] Microscopic analysis of urin e for red blood cells (RBC)Ordered By: Gilbert Thompson on 07-20-2024 Urine RBC 0 SEEN /hpf 0-5 [facility] Monocyte percentageOrdered B y: Gilbert Thompson on 07-20-2024 Monocytes/100 WBC (Bld) 6.8 % 0-10 [facility] Mucus LM Ql (Urine sed)Order ed By: Gilbert Thompson on 07-20-2024 Mucus Ql (Urine sed) 0 SEEN /hpf [facility] Neutrophil percentageOrdered By: Gilbert Thompson on 07-20-2024 Neutrophils/100 WBC (Bld) 68.7 % 47-70 [facility] Nitrite Test strip Ql (U)Ord ered By: Gilbert Thompson on 07-20-2024 Nitrite Ql (U) Negative Negative [facility] Nucleated red blood cell per centageOrdered By: Gilbert Thompson on 07-20-2024 Nucleated RBC/100 WBC (Bld) [Ratio] 0 % 0-5 [facility] Platelet countOrdered By: Ug selin Thompson on 07-20-2024 Platelets (Bld) [#/Vol] 207 10*3/uL 150-450 [facility] Potassium measurementOrdered By: Gilbertselin Thompson on 07-20-2024 Potassium [Moles/Vol] 3.8 mmol/L 3.5-5.1 [facility] Protein Test strip Ql (U)Ord ered By: Gilbert Thompson on 07-20-2024 Protein Ql (U) Negative Negative [facility] RBC Auto (Bld) [#/Vol]Ordere d By: Gilbert Thompson on 07-20-2024 RBC (Bld) [#/Vol] 5.43 10*6/uL 4.6-6.2 [facility] Serum anion gap measurementO rdered By: Gilbert Thompson on 07-20-2024 Anion gap [Moles/Vol] 6 mmol/L 5-15 [facility] Serum or plasma calcium jenny urement (mass/volume)Ordered By: Gilbert Thompson on 07-20-2024 Calcium [Mass/Vol] 9.5 mg/dL 8.5-10.1 [facility] Serum or plasma creatinine m easurement (mass/volume)Ordered By: Gilbert Thompson on 07-20-2024 Creatinine [Mass/Vol] 1.12 mg/dL 0.70-1.30 [facility] Comment on above: The validity of the calculated GFR & GFRAA in patients over 70 years has not been determined. Clinical correlation is essential. Serum or plasma urea nitroge n measurement (mass/volume)Ordered By: Gilbert Thompson on 07-20-2024 Urea nitrogen [Mass/Vol] 17 mg/dL 7-18 [facility] Sodium levelOrdered By: Gilbert Thompson on 07-20-2024 Sodium [Moles/Vol] 137 mmol/L 136-145 [facility] Urinalysis, Completeon 07-20 WBC 0-5 SEEN Normal 0-5 [facility] Comment on above: Order Comment: CLEAN CATCH Performed By: #### L 400.0001 ####[facility] [id number] [place], [address] BACTERIA 0 SEEN Normal None Seen [facility] Comment on above: Order Comment: CLEAN CATCH Performed By: #### L [id number] ####[facility] [id number] [place], [address] EPI,SQUAMOUS 0 SEEN Normal 0-5 [facility] Comment on above: Order Comment: CLEAN CATCH Performed By: #### L [id number] ####[facility] [id number] [place], [address] Mucus Ql (Urine sed) 0 SEEN Normal [facility] Comment on above: Order Comment: CLEAN CATCH Performed By: #### L [id number] ####[facility] [id number] [place], [address] RBC 0 SEEN Normal 0-5 [facility] Comment on above: Order Comment: CLEAN CATCH Performed By: #### L [id number] ####[facility] [address] [place], [address] Urine blood detectionOrdered By: Gilbert Thompson on 07-20-2024 Urine Occult Blood Negative Negative [facility] Urine clarityOrdered By: Gilbert Thompson on 07-20-2024 Clarity (U) Clear Clear [facility] Urine color determinationOrd ered By: Gilbert Thompson on 07-20-2024 Color (U) Yellow Yellow [facility] Urine leukocyte esterase det ection by dipstickOrdered By: Gilbert Thompson on 07-20-2024 Leukocyte esterase Test strip Ql (U) Negative Negative [facility] Urine pHOrdered By: Gilbert Gall o on 07-20-2024 pH (U) 6.0 [pH] 5.0 - 8.0 [facility] Urine sediment bacteria coun t by microscopy (number/high power field)Ordered By: Gilbertselin Goldsmitho on 07-20-2024 Bacteria LM.HPF (Urine sed) [#/Area] 0 /[HPF] None Seen [facility] Urine specific gravity measu rementOrdered By: [facility] on 07-20-2024 Specific gravity (U) [Rel density] 1.010 1.002-1.03 0 [facility] Urobilinogen Ql (U)Ordered B y: Gilbert Thompson on 07-20-2024 Urine Urobilinogen Normal mg/dl Normal [facility] White blood cell (WBC) count Ordered By: [facility] on 07-20-2024 WBC (Bld) [#/Vol] 6.6 10*3/uL 4.4-11.0 [facility] White blood cell countOrdere d By: Gilbertselin Goldsmitho on 07-20-2024 Urine WBC 0-5 SEEN /hpf 0-5 [facility] Vital Signs Date Time Vital Sign Value Performing Clinician Facility 03-03-2025 15:33-0400 Body temperature 97.7 [degF] Dr. Belle Monk MD Work Phone: [facility] 03-03-2025 15:33-0400 Diastolic blood pressure 74 mm[Hg] Dr. Belle Monk MD Work Phone: [facility] 03-03-2025 15:33-0400 Heart rate 70 /min Dr. Belle Monk MD Work Phone: [facility] 03-03-2025 15:33-0400 Respiratory rate 18 /min Dr. Belle Monk MD Work Phone: [facility] 03-03-2025 15:33-0400 SaO2% (BldA) [Mass fraction] 99 % Dr. Belle Monk MD Work Phone: [facility] 03-03-2025 15:33-0400 Systolic blood pressure 125 mm[Hg] Dr. Belle Monk MD Work Phone: [facility] 03-03-2025 12:33-0400 Body height 177.[address] Belle Monk MD Work Phone: [facility] 03-03-2025 12:33-0400 Body mass index (BMI) [Ratio] 25.5 kg/m2 Dr. Belle Monk MD Work Phone: [facility] 03-03-2025 12:33-0400 Body weight 80.[address] Belle Monk MD Work Phone: [facility] 02-24-2025 13:37-0400 Body height 180.[address] Belle Monk MD Work Phone: [facility] 02-24-2025 13:37-0400 Body mass index (BMI) [Ratio] 25.4 kg/m2 Dr. Belle Monk MD Work Phone: [facility] 02-24-2025 13:37-0400 Body temperature 97.8 [degF] Dr. Belle Monk MD Work Phone: [facility] 02-24-2025 13:37-0400 Body weight 82.[address] Belle Monk MD Work Phone: [facility] 02-24-2025 13:37-0400 Diastolic blood pressure 75 mm[Hg] Dr. Belle Monk MD Work Phone: [facility] 02-24-2025 13:37-0400 Heart rate 85 /min Dr. Belle Monk MD Work Phone: [facility] 02-24-2025 13:37-0400 Respiratory rate 18 /min Dr. Belle Monk MD Work Phone: [facility] 02-24-2025 13:37-0400 SaO2% (BldA) [Mass fraction] 99 % Dr. Belle Monk MD Work Phone: [facility] 02-24-2025 13:37-0400 Systolic blood pressure 135 mm[Hg] Dr. Belle Monk MD Work Phone: [facility] 02-24-2025 12:05-0400 Body height 180.[address] Belle Monk MD Work Phone: [facility] 02-24-2025 12:05-0400 Body mass index (BMI) [Ratio] 25.1 kg/m2 Dr. Belle Monk MD Work Phone: [facility] 02-24-2025 12:05-0400 Body temperature 98.7 [degF] Dr. Belle Monk MD Work Phone: [facility] 02-24-2025 12:05-0400 Body weight 81.[address] Belle Monk MD Work Phone: [facility] 02-24-2025 12:05-0400 Diastolic blood pressure 69 mm[Hg] Dr. Belle Monk MD Work Phone: [facility] 02-24-2025 12:05-0400 Heart rate 86 /min Dr. Belle Monk MD Work Phone: [facility] 02-24-2025 12:05-0400 Respiratory rate 18 /min Dr. Belle Monk MD Work Phone: [facility] 02-24-2025 12:05-0400 SaO2% (BldA) [Mass fraction] 99 % Dr. Belle Monk MD Work Phone: [facility] 02-24-2025 12:05-0400 Systolic blood pressure 116 mm[Hg] Dr. Belle Monk MD Work Phone: [facility] 02-21-2025 13:42-0400 Body height 180.[address] Belle Monk MD Work Phone: [facility] 02-21-2025 13:42-0400 Body mass index (BMI) [Ratio] 25.1 kg/m2 Dr. Belle Monk MD Work Phone: [facility] 02-21-2025 13:42-0400 Body temperature 98.1 [degF] Dr. Belle Monk MD Work Phone: [facility] 02-21-2025 13:42-0400 Body weight 81.[address] Belle Monk MD Work Phone: [facility] 02-21-2025 13:42-0400 Diastolic blood pressure 68 mm[Hg] Dr. Belle Monk MD Work Phone: [facility] 02-21-2025 13:42-0400 Heart rate 90 /min Dr. Belle Monk MD Work Phone: [facility] 02-21-2025 13:42-0400 Respiratory rate 16 /min Dr. Belle Monk MD Work Phone: [facility] 02-21-2025 13:42-0400 SaO2% (BldA) [Mass fraction] 97 % Dr. Belle Monk MD Work Phone: [facility] 02-21-2025 13:42-0400 Systolic blood pressure 133 mm[Hg] Dr. Belle Monk MD Work Phone: [facility] 02-04-2025 12:16-0400 Body height 177.8 cm Baldomero Clemons MD Work Phone: [facility] 02-04-2025 12:16-0400 Body temperature 98.01 [degF] Baldomero Clemons MD Work Phone: [facility] 02-04-2025 12:16-0400 Diastolic blood pressure 81 mm[Hg] Baldomero Clemons MD Work Phone: [facility] 02-04-2025 12:16-0400 Heart rate 68 /min Baldomero Clemons MD Work Phone: [facility] 02-04-2025 12:16-0400 Respiratory rate 14 /min Baldomero Clemons MD Work Phone: [facility] 02-04-2025 12:16-0400 SaO2% (BldA) [Mass fraction] 99 % Baldomero Clemons MD Work Phone: [facility] 02-04-2025 12:16-0400 Systolic blood pressure 147 mm[Hg] Baldomero Clemons MD Work Phone: [facility] 01-27-2025 14:36-0400 Body height 177.8 cm Baldomero Alejo MD Work Phone: [facility] 01-27-2025 14:36-0400 Body mass index (BMI) [Ratio] 25.43 kg/m2 Baldomero Alejo MD Work Phone: [facility] 01-27-2025 14:36-0400 Body temperature 98.49 [degF] Baldomero Alejo MD Work Phone: [facility] 01-27-2025 14:36-0400 Body weight 80.38 kg Baldomero Alejo MD Work Phone: [facility] Comment on above: shoes off 01-27-2025 14:36-0400 Diastolic blood pressure 70 mm[Hg] Baldomero Alejo MD Work Phone: [facility] 01-27-2025 14:36-0400 Heart rate 79 /min Baldomero Alejo MD Work Phone: [facility] 01-27-2025 14:36-0400 Respiratory rate 14 /min Baldomero Alejo MD Work Phone: [facility] 01-27-2025 14:36-0400 SaO2% (BldA) [Mass fraction] 99 % Baldomero Alejo MD Work Phone: [facility] 01-27-2025 14:36-0400 Systolic blood pressure 136 mm[Hg] Baldomero Alejo MD Work Phone: [facility] 01-20-2025 10:15-0400 Body height 180.[address] Belle Monk MD Work Phone: [facility] 01-20-2025 10:15-0400 Body mass index (BMI) [Ratio] 25 kg/m2 Dr. Belle Monk MD Work Phone: [facility] 01-20-2025 10:15-0400 Body temperature 98.2 [degF] Dr. Belle Monk MD Work Phone: [facility] 01-20-2025 10:15-0400 Body weight 81.[address] Belle Monk MD Work Phone: [facility] 01-20-2025 10:15-0400 Diastolic blood pressure 82 mm[Hg] Dr. Belle Monk MD Work Phone: [facility] 01-20-2025 10:15-0400 Heart rate 69 /min Dr. Belle Monk MD Work Phone: [facility] 01-20-2025 10:15-0400 Respiratory rate 18 /min Dr. Belle Monk MD Work Phone: [facility] 01-20-2025 10:15-0400 SaO2% (BldA) [Mass fraction] 98 % Dr. Belle Monk MD Work Phone: [facility] 01-20-2025 10:15-0400 Systolic blood pressure 143 mm[Hg] Dr. Belle Monk MD Work Phone: [facility] 01-14-2025 12:46-0400 Body temperature 97.5 [degF] Dr. Belle Monk MD Work Phone: [facility] 01-14-2025 12:46-0400 Diastolic blood pressure 71 mm[Hg] Dr. Belle Monk MD Work Phone: [facility] 01-14-2025 12:46-0400 Heart rate 62 /min Dr. Belle Monk MD Work Phone: [facility] 01-14-2025 12:46-0400 Respiratory rate 16 /min Dr. Belle Monk MD Work Phone: [facility] 01-14-2025 12:46-0400 SaO2% (BldA) [Mass fraction] 100 % Dr. Belle Monk MD Work Phone: [facility] 01-14-2025 12:46-0400 Systolic blood pressure 123 mm[Hg] Dr. Belle Monk MD Work Phone: [facility] 01-13-2025 12:57-0400 Body height 180.[address] Belle Monk MD Work Phone: [facility] 01-13-2025 12:57-0400 Body mass index (BMI) [Ratio] 25.7 kg/m2 Dr. Belle Monk MD Work Phone: [facility] 01-13-2025 12:57-0400 Body weight 83.[address] Belle Monk MD Work Phone: [facility] 01-12-2025 14:08-0400 Body temperature 97 [degF] Dr. Belle Monk MD Work Phone: [facility] 01-12-2025 14:08-0400 Diastolic blood pressure 88 mm[Hg] Dr. Belle Monk MD Work Phone: [facility] 01-12-2025 14:08-0400 Heart rate 76 /min Dr. Belle Monk MD Work Phone: [facility] 01-12-2025 14:08-0400 Respiratory rate 20 /min Dr. Belle Monk MD Work Phone: [facility] 01-12-2025 14:08-0400 SaO2% (BldA) [Mass fraction] 99 % Dr. Belel Monk MD Work Phone: [facility] 01-12-2025 14:08-0400 Systolic blood pressure 155 mm[Hg] Dr. Belle Monk MD Work Phone: [facility] 01-12-2025 09:12-0400 Body height 180.[address] Belle Monk MD Work Phone: [facility] 01-12-2025 09:12-0400 Body mass index (BMI) [Ratio] 25.7 kg/m2 Dr. Belle Monk MD Work Phone: [facility] 01-12-2025 09:12-0400 Body weight 83.[address] Belle Monk MD Work Phone: [facility] 01-12-2025 08:53-0400 Body height 180.[address] Belle Monk MD Work Phone: [facility] 01-12-2025 08:53-0400 Body mass index (BMI) [Ratio] 25.7 kg/m2 Dr. Belle Monk MD Work Phone: [facility] 01-12-2025 08:53-0400 Body temperature 97.6 [degF] Dr. Belle Monk MD Work Phone: [facility] 01-12-2025 08:53-0400 Body weight 83.[address] Belle Monk MD Work Phone: [facility] 01-12-2025 08:53-0400 Diastolic blood pressure 89 mm[Hg] Dr. Belle Monk MD Work Phone: [facility] 01-12-2025 08:53-0400 Heart rate 81 /min Dr. Belle Monk MD Work Phone: [facility] 01-12-2025 08:53-0400 Respiratory rate 18 /min Dr. Belle Monk MD Work Phone: [facility] 01-12-2025 08:53-0400 SaO2% (BldA) [Mass fraction] 98 % Dr. Belle Monk MD Work Phone: [facility] 01-12-2025 08:53-0400 Systolic blood pressure 151 mm[Hg] Dr. Belle Monk MD Work Phone: [facility] 07-20-2024 19:58-0500 Body temperature 97.9 [degF] No Primary Care Physician [facility] 07-20-2024 19:58-0500 Diastolic blood pressure 102 mm[Hg] No Primary Care Physician [facility] 07-20-2024 19:58-0500 Heart rate 79 /min No Primary Care Physician [facility] 07-20-2024 19:58-0500 Respiratory rate 12 /min No Primary Care Physician [facility] 07-20-2024 19:58-0500 SaO2% (BldA) [Mass fraction] 94 % No Primary Care Physician [facility] 07-20-2024 19:58-0500 Systolic blood pressure 147 mm[Hg] No Primary Care Physician [facility] 07-20-2024 15:06-0500 Body height 180.34 cm No Primary Care Physician [facility] 07-20-2024 15:06-0500 Body mass index (BMI) [Ratio] 30.2 kg/m2 No Primary Care Physician [facility] 07-20-2024 15:06-0500 Body weight 98.4 kg No Primary Care Physician [facility] Encounters Encounter Date Encounter Type Care Provider Facility Start: 03-04-2025 ambulatory [facility] Digna Romei ty:[facility] Start: 03-03-2025 Non-patient / Non-visit Dr. Blanca Stauffer MD -[facility] Start: 03-03-2025 End: 03-03-2025 Admission to same day surgery center Dr. Freeman Stauffer [facility] Start: 03-03-2025 End: 03-03-[address] Belle Monk MD Work Phone: [facility] Start: 02-24-2025 End: 02-24-[address] Freeman Stauffer MD -[facility] Work Phone: Start: 02-24-2025 End: 02-24-[address] Belle Monk MD Work Phone: -[facility] Start: 02-24-2025 End: 02-24-2025 Patient encounter procedure Ludivina CLINTON -[facility] Work Phone: Start: 02-24-2025 End: 02-24-[address] Belle Monk MD Work Phone: -[facility] Start: 02-22-2025 End: 02-22-[address] Belle Monk MD Work Phone: -Nuclear Medicine [facility] Start: 02-22-2025 End: 02-22-[address] Petra Sawyer MD -Nuclear Medicine [facility] Work Phone: Start: 02-21-2025 ambulatory Belle Monk Facility: [facility] Start: 02-21-[address] Jose Sawyer MD -[facility] Start: 02-21-2025 End: 02-21-[address] Petra Sawyer MD -[facility] Work Phone: Start: 02-21-2025 End: 02-22-[address] Belle Monk MD Work Phone: -[facility] Start: 02-10-2025 End: 02-10-2025 Telephone encounter Araceli Mccann APRN-[facility] Work Phone: Division of Surgical Oncology Comment on above: Appointment Start: 02-04-2025 ambulatory BALDOMERO CLEMONS Facility: [facility] Start: 02-04-2025 End: 02-04-2025 Subsequent hospital visit by physician Baldomero Clemons MD Work Phone: Department of Radiology Comment on above: Arrived Start: 02-04-2025 End: 02-04-2025 Subsequent hospital visit by physician Baldomero Clemons MD Work Phone: [facility] Start: 02-04-2025 ambulatory BALDOMERO CLEMONS Facility: [facility] Start: 02-02-2025 End: 02-02-2025 Patient encounter procedure Berna Benson [facility] Work Phone: Department of Nutrition and Dietetics Comment on above: Bile duct obstructio n (Primary Dx) Start: 02-02-2025 ambulatory BERNA PERRY Facility :[facility] Start: 01-27-2025 End: 01-27-2025 Office outpatient new 60 minutes Baldomero Alejo MD Work Phone: Division of Surgical Oncology Comment on above: Bile duct obstructio n (Primary Dx); Malignant neoplasm of pancreas, unspecified location of malignancy Start: 01-27-2025 End: 01-27-2025 Clinical Support Encounter Baldomero Alejo MD Work Phone: [facility] Comment on above: Bile duct obstructio n; Malignant neoplasm of pancreas, unspecified location of malignancy Start: 01-27-2025 ambulatory BELLE MONK Facility: [facility] Start: 01-20-[address] Jose Sawyer MD -[facility] Start: 01-20-2025 End: 01-20-[address] Petra Sawyer MD -[facility] Work Phone: Start: 01-20-2025 End: 01-20-[address] Belle Monk MD Work Phone: [facility] Start: 01-14-2025 Non-patient / Non-visit Dr. Elin Moore DO [facility] Work Phone: Start: 01-13-2025 Non-patient / Non-visit Dr. Elin Moore [facility] Work Phone: Start: 01-13-2025 Non-patient / Non-visit Trevon Smart nd [facility] Start: 01-13-2025 End: 01-13-2025 ambulatory [facility] Facility:[facility] Start: 01-13-2025 End: 01-13-2025 Non-patient / Non-visit Dr. Ellen De La Garza MD -[facility] Work Phone: Start: 01-12-2025 Non-patient / Non-visit Trevon Smart [facility] Start: 01-12-2025 Non-patient / Non-visit Dr. Matilde ayers MD -[facility] Work Phone: Start: 01-12-2025 ambulatory [facility] Facility: [facility] Start: 01-12-2025 End: 01-14-2025 Evaluation and management of inpatient Dr. Matilde Henry MD -[facility] 3 Work Phone: Start: 01-12-2025 End: 01-12-[address] Freeman Stauffer MD -[facility] Work Phone: Start: 01-12-2025 End: 01-12-[address] Belle Monk MD Work Phone: [facility] Work Phone: Start: 01-05-2025 End: 01-05-[address] Belle Monk MD Work Phone: [facility] Work Phone: Start: 01-05-2025 End: 01-05-[address] Belle Monk MD -[facility] Work Phone: Start: 01-04-2025 End: 01-05-[address] Belle Monk MD Work Phone: [facility] Work Phone: Start: 01-04-2025 End: 01-04-[address] Belle Monk MD -[facility]atory [facility] Start: 01-04-2025 End: 01-04-2025 ambulatory Belle Mianuradha Facility:[facility] Start: 10-22-2024 End: 10-22-2024 ambulatory No Primary Care Physician [facility] Work Phone: Start: 10-22-2024 End: 10-22-[address] [facility] Start: 10-22-2024 End: 10-22-2024 [facility] Facility[facility] Start: 07-20-2024 End: 07-20-2024 Emergency department patient visit Dr. Gilbert Thompson MD -Emergency Department Work Phone: Procedures Date Procedure Procedure Detail Performing Clinician Start: 03-03-2025 Plain chest X-ray Dr. Belle Monk MD Work Phone: Start: 03-03-2025 Implantation to cardiovascular system Dr. Belle Monk MD Work Phone: Start: 03-03-[address] Belle Monk MD Work Phone: Start: 02-22-2025 Radionuclide whole body bone study Dr. Belle Monk MD Work Phone: Start: 02-21-[address] Mayte Monk MD Work Phone: Start: 02-21-2025 Serum inorganic phosphate measurement Dr. Belle Monk MD Work Phone: Start: 02-04-2025 ERCP Reji Berry DIRECTOR [employer] Work Phone: Start: 02-04-2025 UPPER EUS Reji N Haverick DIRECTOR [employer] Work Phone: Start: 02-04-2025 End: 02-04-2025 Glucose measurement, blood Baldomero Clemons MD Work Phone: Start: 01-27-2025 CBC AND ELECTRONIC DIFF Rejiwai glass DIRECTOR [employer] Work Phone: Start: 01-27-2025 Complete blood count with white cell differential, automated Reji N Kristindimitrios DIRECTOR [employer] Work Phone: Start: 01-27-2025 Comprehensive metabolic panel Reji malloy DIRECTOR [employer] Work Phone: Start: 01-27-2025 Immunoassay tumor antigen quantitative ca 19-9 Reji Eva Namrata DIRECTOR [employer] Work Phone: Start: 01-13-2025 End: 01-13-2025 Endoscopic [...] Mayte Monk MD Work Phone: Start: 01-13-[address] Belle monge MD Work Phone: Comment on above: Note: Specimen is icteric.Previous repor justin result: TNP AIEdited by: INFCE on 01/14/25:1008 AMENDED REPORT 01/14/25 1008 [employer] Ab previously reported as: Test not performed Start: 01-12-2025 Pciqw-3-Cyetxywgxud measurement Dr. Linda Monk MD Work Phone: Comment on above: [facility] Electrochemiluminescen ce Immunoassay(ECLIA)Values obtained with different assay [...] RSV VACCINE (1 - 1-dose 75+ series) [facility] Start: 04-21-2025 End: 04-21-2025 Patient encounter procedure Department of Radiology Start: 03-21-2025 Influenza vaccination INFLUENZA VACC INE (#1) [facility] Start: 03-03-2025 Patient discharge [facility] Start: 02-21-2025 Cancer Ag 19-9 [Units/volume] in Serum or Plasma [facility] Start: 02-21-2025 CBC W Auto Different ial panel - Blood [facility] Start: 02-21-2025 Comprehensive metabo lic 2000 panel - Serum or Plasma [facility] Start: 02-21-2025 Magnesium measurement [facility] Start: 02-21-2025 Serum inorganic phos phate measurement [facility] Start: 02-21-2025 [facility] Start: 02-10-2025 End: 02-10-2026 CA 19-9 CA 19-9 Lab Routine Malignant neoplasm of pancreas, unspecified location of malignancy Expected: 02/10/2025, Expires: 02/10/2026 [facility] Comment on above: Expected: 02/10/2025 , Expires: 02/10/2026 Start: 02-10-2025 End: 02-10-2026 Complete blood count with white cell differential, automated CBC, EDIF, PLATELET Lab Routine Malignant neoplasm of pancreas, unspecified location of malignancy Expected: 02/10/2025, Expires: 02/10/2026 [facility] Comment on above: Expected: 02/10/2025 , Expires: 02/10/2026 Start: 02-10-2025 End: 02-10-2026 Comprehensive metabolic 2000 panel - Serum or Plasma COMPREHENSIVE METABOLIC PANEL Lab Routine Malignant neoplasm of pancreas, unspecified location of malignancy Expected: 02/10/2025, Expires: 02/10/2026 [facility] Comment on above: Expected: 02/10/2025 , Expires: 02/10/2026 Start: 02-10-2025 End: 02-10-2026 CT Abdomen and Pelvis W contrast IV CT ABDOMEN/PELVIS WITH CONTRAST Imaging Routine Malignant neoplasm of pancreas, unspecified location of malignancy Expected: 02/10/2025, Expires: 02/10/2026 [facility] Comment on above: Expected: 02/10/2025 , Expires: 02/10/2026 Start: 02-10-2025 End: 02-10-2026 CT Chest W contrast IV CT CHEST WITH CONTRAST Imaging Routine Malignant neoplasm of pancreas, unspecified location of malignancy Expected: 02/10/2025, Expires: 02/10/2026 [facility] Comment on above: Expected: 02/10/2025 , Expires: 02/10/2026 Start: 02-10-2025 End: 02-10-2026 Hemoglobin A1c/Hemoglobin.total in Blood HEMOGLOBIN A1C Lab Routine Malignant neoplasm of pancreas, unspecified location of malignancy Encounter for screening for diabetes mellitus Expected: 02/10/2025, Expires: 02/10/2026 [facility] Comment on above: Expected: 02/10/2025 , Expires: 02/10/2026 Start: 02-10-2025 End: 02-10-2026 Prealbumin [Mass/volume] in Serum or Plasma PREALBUMIN Lab Routine Malignant neoplasm of pancreas, unspecified location of malignancy Expected: 02/10/2025, Expires: 02/10/2026 [facility] Comment on above: Expected: 02/10/2025 , Expires: 02/10/2026 Start: 02-10-2025 End: 02-10-2026 PT,INR,PTT PT,INR,PTT Lab Routine Malignant neoplasm of pancreas, unspecified location of malignancy Neoplasm of unspecified behavior of unspecified site Expected: 02/10/2025, Expires: 02/10/2026 [facility] Comment on above: Expected: 02/10/2025 , Expires: 02/10/2026 Start: 02-02-2025 End: 02-02-2025 Patient encounter procedure 02/02/2025 1:00 PM EDT Office Visit Department of Nutrition and Dietetics [address] [place] [address] Berna Perry, RD [address] [place] [address] Department of Nutrition and Dietetics Start: 01-27-2025 End: 01-27-2026 ERCP ERCP GI/Bronch STAT Bile duct obstruction Expected: 01/27/2025, Expires: 01/27/2026 [facility] Comment on above: Expected: 01/27/2025 , Expires: 01/27/2026 Start: 01-27-2025 End: 01-27-2026 UPPER EUS UPPER EUS GI/Bronch STAT Bile duct obstruction Expected: 01/27/2025, Expires: 01/27/2026 [facility] Comment on above: Expected: 01/27/2025 , Expires: 01/27/2026 Start: 01-20-2025 Bilirubin.direct [Mass/volume] in Serum or Plasma [facility] Start: 01-20-2025 CBC W Auto Different ial panel - Blood [facility] Start: 01-20-2025 Comprehensive metabo lic 2000 panel - Serum or Plasma [facility] Start: 01-20-2025 [facility] Start: 01-14-2025 Patient discharge [facility] Start: 01-13-2025 [facility] Start: 01-12-2025 Cytomegalovirus IgM antibody assay [facility] Start: 01-12-2025 Immunoglobulin measurement [facility] Start: 01-12-2025 [facility] Start: 01-12-2025 Following clinical p athway protocol [facility] Start: 01-12-2025 Assessment of risk o f venous thromboembolism [facility] Start: 01-12-2025 Care regimes management [facility] Start: 01-12-2025 Inhalation therapy procedure [facility] Start: 01-12-2025 Insertion of cathete r into peripheral vein [facility] Start: 01-12-2025 Notification of physician [facility] Start: 01-12-2025 Providing care accor ding to standard [facility] Start: 01-12-2025 Provision of activit y privileges [facility] Start: 01-12-2025 Referral to gastroenterology service [facility] Start: 01-12-2025 End: 01-12-2025 [facility] Start: 01-12-2025 Admission procedure [facility] Start: 01-12-2025 Verification routine [facility] Start: 01-12-2025 Hospital admission, emergency, from emergency room, medical nature [facility] Start: 01-12-2025 [facility] Start: 07-20-2024 [facility] Start: 03-21-2024 COVID-19 VACCINE ( season) COVID-19 VACCINE ( season) [facility] Start: 2010 Prostate specific an tigen measurement PROSTATE CANCER SCREENING DISCUSSION [facility] Start: 2005 Pneumococcal vaccination PNEUM OCOCCAL VACCINE SERIES (1 of 1 - PCV) [facility] Start: 2005 Zoster vaccine hzv l kendall for subcutaneous use ZOSTER (SHINGLES) VACCINE (1 of 2) [facility] Start: 2000 Screening for malign ant neoplasm of colon COLORECTAL CANCER SCREENING DISCUSSION [facility] Start: 1995 Lipid panel LIPID SCREENING [facility] Start: 1974 Third diphtheria, te tanus and acellular pertussis (DTaP) vaccination TDAP (ADULT) [facility] Start: 1955 Hepatitis C screening HEPATITI S C VIRUS SCREENING [facility] Start: 1955 Tetanus vaccination TETANUS [facility] Alanine aminotransfe rase [Enzymatic activity/volume] in Serum or Plasma [facility] Alanine aminotransfe rase [Enzymatic activity/volume] in Serum or Plasma [facility] Albumin [Mass/volume ] in Serum or Plasma [facility] Albumin [Mass/volume ] in Serum or Plasma [facility] Alkaline phosphatase [Enzymatic activity/volume] in Serum or Plasma [facility] Alkaline phosphatase [Enzymatic activity/volume] in Serum or Plasma [facility] Kzudz-7-bvswtsfsfts. tumor marker [Units/volume] in Serum or Plasma [facility] Anion gap in Serum o r Plasma [facility] Anion gap in Serum o r Plasma [facility] Bilirubin, total measurement [facility] Bilirubin, total measurement [facility] BUN/Creatinine ratio [facility] BUN/Creatinine ratio [facility] Calcium [Mass/volume ] in Serum or Plasma [facility] Calcium [Mass/volume ] in Serum or Plasma [facility] Cancer Ag 19-9 [Units/volume] in Serum or Plasma [facility] Carbon dioxide, tota l [Moles/volume] in Central venous blood [facility] Carbon dioxide, tota l [Moles/volume] in Central venous blood [facility] Creatinine [Mass/vol ume] in Serum or Plasma [facility] Creatinine [Mass/vol ume] in Serum or Plasma [facility] CT Abdomen and Pelvi s W contrast IV [facility] CT Chest W contrast IV [facility] Maricruz Trinh virus c apsid IgG Ab [Units/volume] in Serum [facility] Maricruz Trinh virus c apsid IgM Ab [Units/volume] in Serum [facility] Maricruz Trinh virus n uclear IgG Ab [Units/volume] in Cerebral spinal fluid [facility] Maricruz-Trinh virus serologic test [facility] Erythrocyte mean corpuscular volume determination [facility] Erythrocyte mean corpuscular volume determination [facility] Glucose [Mass/volume ] in Serum or Plasma [facility] Glucose [Mass/volume ] in Serum or Plasma [facility] Hematocrit [Volume Fraction] of Blood [facility] Hematocrit [Volume Fraction] of Blood [facility] Hemoglobin [Mass/vol ume] in Blood [facility] Hemoglobin [Mass/vol ume] in Blood [facility] Hepatic function panel [facility] IgA [Mass/volume] in Serum or Plasma [facility] IgE [Units/volume] i n Serum or Plasma [facility] IgG [Mass/volume] in Serum or Plasma [facility] IgG subclass 1 [Mass/volume] in Serum [facility] IgG subclass 2 [Mass/volume] in Serum [facility] IgG subclass 3 [Mass/volume] in Serum [facility] IgG subclass 4 [Mass/volume] in Serum [facility] IgM [Mass/volume] in Serum or Plasma [facility] Leukocytes [#/volume ] in Blood [facility] Leukocytes [#/volume ] in Blood [facility] Mean corpuscular hemoglobin concentration determination [facility] Mean corpuscular hemoglobin concentration determination [facility] Mean corpuscular hemoglobin determination [facility] Mean corpuscular hemoglobin determination [facility] Measurement of renal function [facility] Measurement of renal function [facility] Neutrophil count [facility] Neutrophil count [facility] Neutrophil cytoplasm ic Ab.classic [Units/volume] in Serum [facility] Neutrophil percent differential count [facility] Neutrophil percent differential count [facility] NM Whole body Bone Views [facility] P-ANCA measurement [facility] Patient Education ED Diabetes- O [facility] ED Hypertension, To Be Confirmed ED Hyperglycemia New Poss Diabetes [facility] Work Phone: Patient referral [facility] Work Phone: Platelets [#/volume] in Blood [facility] Platelets [#/volume] in Blood [facility] Potassium measurement [facility] Potassium measurement [facility] Red blood cell count [facility] Red blood cell count [facility] Red cell distributio n width determination [facility] Red cell distributio n width determination [facility] End: 02-04-2025 RF Guidance for endoscopy of Biliary ducts and Pancreatic duct-- W contrast retrograde [facility] Work Phone: Comment on above: One Time for 1 Occur rences starting 02/04/2025 until 02/04/2025 Serum chloride measurement [facility] Serum chloride measurement [facility] Sodium measurement [facility] Sodium measurement [facility] SURG PATH REQUEST U [facility] Comment on above: Release Upon Orderin g for 1 Occurrences starting 02/04/2025, 1 completed Total protein measurement [facility] Total protein measurement [facility] Urea nitrogen [Mass/volume] in Serum or Plasma [facility] Urea nitrogen [Mass/volume] in Serum or Plasma [facility] Payers Date Payer Category Payer Managed Care (unspecified) MEDICARE SUPPLEMENT [id number] 2024 Medicare MEDICARE A AND B [id number] 2024 Medicare [id number] 2024 Medicare [id number] 2024 Self-pay 1955 Unknown [id number] 2..840.1.453540.3.579.2 .594 1955 Unknown [id number] 2.16.840.1.070074.3.579.2 .594 1955 Unknown [id number] 2.16.840.1.166576.3.579.2 .594 1955 Unknown [id number] 2.16.840.1.417546.3.579.2 .594 1955 Unknown [id number] 2.16.840.1.480498.3.579.2 .594 Unknown [id number] 2.16.840.1.633265.3.579.2 .462 Unknown [id number] 2.16.840.1.414776.3.579.2 .462 Unknown [id number] 2.16.840.1.065631.3.579.2 .462 Unknown [id number] 2.840.1.364657.3.579.2 .462 Unknown [id number] 2..840.1.202947.3.579.2 .462 Unknown [id number] 2.840.1.909847.3.579.2 .462 Unknown [id number] 2.840.1.775361.3.579.2 .462 Unknown [id number] 2.840.1.443618.3.579.2 .462 Unknown [id number] 2.840.1.670684.3.579.2 .462 Unknown [id number] 2.840.1.456434.3.579.2 .462 Unknown [id number] 2.840.1.047148.3.579.2 .462 Unknown [id number] 2.840.1.200935.3.579.2 .462 Unknown [id number] 2.840.1.539500.3.579.2 .462 Unknown [id number] 2.840.1.724909.3.579.2 .462 Unknown [id number] 2.840.1.644365.3.579.2 .462 Unknown [id number] 2.16840.1.697133.3.579.2 .462 Unknown [id number] 2.16.840.1.791780.3.579.2 .462 Unknown [id number] 2.16.840.1.958821.3.579.2 .462 Unknown [id number] 2.16.840.1.038330.3.579.2 .462 Unknown [id number] 2.16.840.1.202967.3.579.2 .462 Unknown [id number] 2.16.840.1.790567.3.579.2 .462 Social History Date Type Detail Facility Start: 07-20-2024 End: 02-24-2025 Tobacco smoking status NHIS Never smoked tobacco (finding) [facility] Start: 10-25-2024 End: 01-24-2025 Sex Male (finding) [facility] Start: 1955 Sex Assigned At Male [facility] Start: 01-27-2025 End: 02-04-2025 Alcoholic beverage intake Lifetime non-drinker (finding) [facility] Start: 01-27-2025 End: 02-04-2025 History of Social function [facility] Start: 01-27-2025 End: 02-04-2025 Tobacco use panel [facility] Adolescent depressio n screening assessment 0 [facility] Start: 1955 Sex assigned at Not on file [facility] Start: 01-27-2025 Gender identity Identifies as male gender (finding) [facility] Start: 01-27-2025 Sexual orientation Choose not to dis close [facility] Start: 02-04-2025 Tobacco use and exposure Smoke less tobacco non-user [facility] Medical Equipment Procedure Code Equipment Code Equipment Original Text Equipment Identifier Dates ERCP (endoscopic retrograde cholangiopancreatog vicente) ([id number]) Polymeric biliary stent, non-bioabsorbable ()[id number] FDA Start: 01-13-2025 Wallflex Biliary Plus Rx Fully Covered Stent System 10mm X 40mm ()[id number] FDA Start: 02-04-2025 Comment on above: Description: Verball y and visually checked with Dr Clemons Goals Date Patient Goal Desired Activity /State Personal health goal Functional Status Date Assessment Result Facility 01-14-2025 Functional status Ambulates;Up ad luis angel [facility] Work Phone: Mental Status Date Assessment Result Facility 03-03-2025 Cognitive function Voice/Name [facility] Work Phone: 01-14-2025 Cognitive function Level Of Cons ciousness Alert;Appropriate;Follows Commands [facility] Work Phone: 01-13-2025 Cognitive function Voice/Name [facility] Work Phone: 07-20-2024 Cognitive function Level Of Cons ciousness Awake;Alert;Appropriate;Follow s Commands [facility] Work Phone: Clinical Notes 01-05-2025 to 03-03-2025 Note Date & Type Note Facility 03-03-2025 Discharge summary Note Date/Time March 03, 2025 1:40pm [facility] Medical Records Department [address] [place] [address] Instructions for Home/Discharge Instructions 03/03/25 1339 MR#: [id number] Acct: [id number] Name: ERICK GAUTAM Rep #:[id number] : 1955 69 From: Freeman albarran MD PCP: Dr. Belle Monk MD Status:[facility] Discharge Instructions Procedure Port-A-Cath Diet Discharge Diet: Light diet - advance as tolerated (Pain medication may cause nausea. You should typically eat light foods as you take your pain medication.) Activity Discharge Activity: Return to Normal Activity and May Shower (with your bandage in place in 1-2 days after surgery. DO NOT SHOWER WHEN YOUR PORT IS ACCESSED.) Additional Activity Instructions:: Alternate ibuprofen and Tylenol for pain control Dressing / Incision Call your doctor if your incision/area has: Continuous Slow Oozing, Sudden Increased Bleeding, Increased Pain/ Swelling, Increased Redness and Foul Smelling Discharge Call your doctor if you observe: Fever of 101 or Higher Remove Dressing in: 2 days Cleanse incision/area with: Soap & Water Follow Up Care Please Follow Up With: Freeman Stauffer MD When: as needed [phone] Test Results: Test results from this visit will be discussed in further detail at your follow-up appointment, if applicable. Discharge Plan Admission Attending Provider: Freeman Stauffer Primary Care Provider: Belle Mokn Instructions Print Language: Tajik Discharge Orders/Prescriptions Prescriptions: No Action metformin 500 mg tablet 500 mg PO BID insulin glargine-yfgn 100 unit/mL (3 mL) insulin pen 18 unit subcut QHS Patient Comments: INJECT 20 UNITS SUBCUTANEOUSLY DAILY AND ADJUST PER SCHEDULE. Creon 12,000-38,000 -60,000 unit capsule,delayed release(DR/EC) 2 cap PO QAC Rx Instructions: plus 1 cap before snack Januvia 50 mg tablet 50 mg PO QDAY lidocaine-prilocaine 2.5-2.5 % cream 1 applic topical ONCE PRN (Reason: port access) 30 Days Qty: 30 2RF ondansetron 8 mg tablet,disintegrating 8 mg PO Q8H PRN (Reason: nausea and vomiting) Qty: 30 2RF Patient Comments: has not started yet prochlorperazine maleate 10 mg tablet 10 mg PO Q6H PRN (Reason: nausea and vomiting) Qty: 30 2RF Referrals / Follow Up: Belle Monk MD [Primary Care Provider] - Disposition Disposition (needs filled in before D/C Order can be placed): Home, Self Care 03/03/25 1340<Electronically signed by Freeman Stauffer MD>Freeman Stauffer MD CC: Dr. Belle Monk MD ~ Signed [facility] Work Phone: 1(834) 962-134008-14-2025 Radiology Diagnostic study note [facility] Imaging Services [address] [place], [place] [id number] CXR for Line Placement MR#: [id number] Acct: [id number] Name: ERICK GAUTAM Rep #: [id number] 2 : 1955 M 69 From: Jaya Quick MD PCP: Dr. Belle Monk MD Status: [facility] Study:CXR for Line Placement Date of Exam: 03/03/25 Exam# [id number] Ordering Dr: Freeman Granado MD PROCEDURE: CXR FOR LINE PLACEMENT 03/03/2025 REASON FOR EXAM: LINE PLACEMENT TECHNIQUE: CXR FOR LINE PLACEMENT COMPARISON: None FINDINGS: A right-sided port a catheter has been placed with the tip at the junction of the superior vena cava and right atrium. EKG electrodes are seen. The lungs are clear. Degenerative changes of the thoracic spine. RAD/CXR for Line Placement IMPRESSION: The tip of the right-sided port a catheter is at the junction of the superior vena cava and right atrium. Reading Location: [place] [address] CC: Dr. Freeman Stauffer MD; Dr. Belle Monk MD ~ [employer] Engineer: Signed [facility]08-14-2025 Consult note Author Claus [facility] Note Date/Time March 03, 2025 1: 05pm [facility] Medical Records Department [address] [place] [address] Pre-Anesthesia Evaluation 03/03/25 1256 MR#: [id number] Acct: [id number] Name: ERICK GAUTAM Rep #:[id number] : 1955 69 From: Claus Suggs MD PCP: Dr. Belle Monk MD Status:[facility] Y Race: C Location: [place] [address] ASA Classification* ASA Classification ASA Classification: 2 [...] anesthesia risk assessments. Anesthesia Type Anesthesia Type: MAC (MAC anesthesia with propofol.) History Source History Obtained from:: Patient and Chart Anesthesia Focused Assessment* Temperature: 98.6 F Pulse Rate: 77 Blood Pressure: 136/87 Respiratory Rate: 18 Pulse Ox: 100 Oxygen Delivery Method: Room Air Airway Assessment Mouth opens: >3 cm Mallampati Score: IV Teeth Condition: Caps/Crowns (Patient has a couple crowns left lower jaw. They are tight.) Neck Range of motion (ROM): Limited ROM (Somewhat Decreased) Labs Anesthesia Preop lab: CBC WBC 5.0 K/mm3 (4.4-11.0) 02/21/25 15:08 02/21/25 RBC 4.58 M/mm3 (4.6-6.2) L 02/21/25 15:08 02/21/25 Hgb 13.5 g/dL (13.0-16.5) 02/21/25 15:08 02/21/25 Hct 38.8 % (40-54) L 02/21/25 15:08 02/21/25 Plt Count 210 K/mm3 (150-450) 02/21/25 15:08 02/21/25 CHEMISTRY Potassium 4.5 mmol/L (3.3-5.1) 02/21/25 15:08 02/21/25 Sodium 136 mmol/L (133-145) 02/21/25 15:08 02/21/25 Magnesium 2.3 mg/dL (1.5-2.2) H 02/21/25 15:08 02/21/25 Phosphorus 3.6 mg/dL (2.7-4.5) 02/21/25 15:08 02/21/25 BUN 29 mg/dL (4-19) H 02/21/25 15:08 02/21/25 Creatinine 0.81 mg/dL (0.70-1.20) 02/21/25 15:08 02/21/25 Glucose 395 mg/dL (70-99) H 02/21/25 15:08 02/21/25 POC Glucose 229 mg/dL (74-106) H 01/14/25 11:40 01/14/25 COAG Pre-Assessment Diagnosis/Proposed Procedure Planned Operative Procedure(s): (R) Insertion, Vascular Port right poss left Anesthesia History 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 When Was Last Pacemaker Check QUESTION #4 FULL TEXT: You/Your Family Experience fever (hyperthermia) with Anesthesia Last Oral Intake Last Oral intake: Last Oral Intake NPO since 21:00 03/03/25 12:33 Meds taken in AM with sips of No 03/03/25 12:33 water? 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 cutter operator Female No 02/24/25 08:15 HX of Motion Sickness Yes 02/24/25 08:15 HX of N/V After Surgery Yes 02/24/25 08:15 Non-Smoker Yes 02/24/25 08:15 Duration of Surgery greater No 02/24/25 08:15 than 60 minutes Number of Risk Factors 3 02/24/25 08:15 PONV Score Moderate Risk 02/24/25 08:15 Height & Weight Height & Weight: Anesthesia: Height & Weight Height 5 ft 10 in 03/03/25 12:33 Weight: 80.9 kg 03/03/25 12:33 Body Mass Index (BMI) 25.5 03/03/25 12:33 Respiratory Assessment Respiratory Assessment - abrasive water jet cutter operator: Respiratory Tract Infection Hx - abrasive water jet cutter operator Hx Respiratory Tract Infection No 02/24/25 08:15 STOP Sleep Apnea STOP Sleep Apnea - abrasive water jet cutter operator: STOP Sleep Apnea - abrasive water jet cutter operator Hx Hypertension No 02/24/25 08:15 Hx Sleep Apnea No 02/24/25 08:15 CPAP BIPAP Do you snore loudly (louder No 02/24/25 08:15 than talking or can be heard Do you often feel tired/ No 02/24/25 08:15 fatigued/ sleepy during daytime? Has anyone observed you stop No 02/24/25 08:15 breathing during sleep? STOP Results Negative 02/24/25 08:15 QUESTION #5 FULL TEXT : Do you snore loudly (louder than talking or can be heard through closed doors)? 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 Specify any problems Hx of Preganancy in last 3 N/A 02/24/25 08:15 Months Nurse Filling Out Transfusion JZOLLINGE 02/24/25 08:15 & Questions: Date: 02/24/25 02/24/25 08:15 Time: 08:18 02/24/25 08:15 Patient unable to answer at this time (ie. confused, unrespo /Reproduction History /Reproductive History - abrasive water jet cutter operator: /Reproductive Hx- abrasive water jet cutter operator Hx Now No 02/24/25 08:15 Gestational Age (in weeks): EDC: Hx Hx Para Hx Section SAB No 02/24/25 08:15 Active Medications Active Medications: Current Medications Generic Name Dose Route Start Last Admin Trade Name Freq PRN Reason Stop Dose Admin Cefazolin Sodium 2 gm/ Sodium 110 mls @ 200 mls/hr 03/03/25 13:30 Chloride IV 03/03/25 14:02 INTRAOP ONE Lactated Ringer's 1,000 mls @ 15 mls/hr 03/03/25 12:00 03/03/25 12:39 IV 15 mls/hr .Q48H JACOB Administration PFSH Medical History Encounter for education Wears glasses Arthritis Dietary restriction Non-smoker Regional lymph node metastasis present Pancreas cancer Diabetes mellitus, type 2 Dilated pancreatic duct Dilated bile duct Jaundice Umbilical hernia Gallbladder problem Nausea RUQ pain Cataract Home Medications ?Medication ?Instructions ?Recorded ?Last Taken ?Type metformin 500 mg tablet 500 mg PO BID 01/20/25 Unkno wn History insulin glargine-yfgn 100 unit/mL 18 unit subcut QHS 0 02/21/25 Unknown History (3 mL) subcutaneous pen xrfepp-rblmyseu-regbhhh 2 cap PO QAC 02/21/25 Unknow n History 12,000-38,000-60,000 unit capsule,delayed rel (Creon) sitagliptin phosphate 50 mg tablet 50 mg PO QDAY 02/21 Unknown History (Januvia) lidocaine-prilocaine 2.5 %-2.5 % 1 applic topical ONCE PRN port 02/24/25 Unknown Rx topical cream access 30 days #30 grams ondansetron 8 mg disintegrating 8 mg PO Q8H PRN nausea and 02/24/25 Unknown Rx tablet vomiting #30 tabs prochlorperazine maleate 10 mg 10 mg PO Q6H PRN nausea and 02/24/25 Unknown Rx tablet vomiting #30 tabs Allergy/AdvReac Type Severity Reaction Status Date / Time No Known Allergies Allergy Verified 03/03/25 12:31 Family History Uncle Diabetes Cancer Sister Diabetes Father Cancer Surgical History (Updated 03/03/25 @ 13:[address] Claus Suggs MD) H/O esophagogastroduodenoscopy H/O arthroscopy of right knee H/O right inguinal hernia repair History of appendectomy Social History household members: spouse Smoking Status: Never smoker alcohol intake: never substance use type: does not use Review of Systems (Anesthesia) ROS Narrative System reviewed and no additional complaints, except as documented. 03/03/25 1305 <Electronically signed by Claus dent MD> Date _ Claus Suggs MD Cosigner Signature: Date CC: ~ Signed [facility] Work Phone: 1(561) 684-527708-14-2025 History and physical note Author Freeman Stauffer [facility] Note Date/Time March 03, 2025 12 :23pm [facility] Medical Records Department [address] [place] [address] History & Physical Exam 03/03/25 1222 MR#: [id number] Acct: [id number] Name: ERICK GAUTAM Rep #:[id number] 2 : 1955 69 From: Freeman albarran MD PCP: Dr. Belle Monk MD Status:[facility] Location: [place] [address] History and Physical Date of Admission: 03/03/25 Intake Vital Signs 02/21/2513:42 02/25/2512:05 02/24/2513:37 Height 5 ft 11 in 5 ft 11 in 5 ft 11 in Weight: 180 lb 182 lb 2 oz BMI 25.1 25.4 BP 116/69 135/75 H Blood Pressure Location Lt brachial Rt brachial Position Sitting Sitting Respiration 18 18 Pulse 86 85 Pulse Source Monitor Monitor Temp 98.7 F 97.8 F Temp Source Temporal Pulse Oximetry (%) 99 99 Oxygen Delivery Method room air room air Intake Visit Reasons: PORT PLACEMENT Chief Complaint: port placement Accompanied by: Is patient in pain?: No Allergies No Known Allergies Allergy (Verified 02/24/25 12:06) Medications ?Medication ?Instructions ?Recorded ?Confirmed ?Type metformin 500 mg tablet 500 mg PO BID 01/20/25 02/24/25 History insulin glargine-yfgn 100 unit/mL 18 unit subcut QHS 02/21/25 02/24/25 His tory (3 mL) subcutaneous pen eajxfm-azohnlkg-bfxetkw 2 cap PO QAC 02/21/25 02/24/25 History 12,000-38,000-60,000 unit capsule,delayed rel (Creon) sitagliptin phosphate 50 mg tablet 50 mg PO QDAY 02/21/25 02/24/25 History (Januvia) lidocaine-prilocaine 2.5 %-2.5 % 1 applic topical ONCE PRN port 02/24/25 02/24/25 Rx topical cream access 30 days #30 grams ondansetron 8 mg disintegrating 8 mg PO Q8H PRN nausea and 02/24/25 0802/11 Rx tablet vomiting #30 tabs prochlorperazine maleate 10 mg 10 mg PO Q6H PRN nausea and 02/24/2502/11 Rx tablet vomiting #30 tabs Have you fallen in the past year?: No PFSH Medical History Encounter for education Wears glasses Arthritis Dietary restriction Non-smoker Regional lymph node metastasis present Pancreas cancer Diabetes mellitus, type 2 Dilated pancreatic duct Dilated bile duct Jaundice Umbilical hernia Gallbladder problem Nausea RUQ pain Cataract Surgical History H/O arthroscopy of right knee H/O right inguinal hernia repair History of appendectomy Family History Uncle Diabetes CancerSister DiabetesFather Cancer Social History household members: spouse Smoking Status: Never smoker alcohol intake: never substance use type: does not use HPI HPI HPI: Patient is a 69-year-old male here with pancreatic cancer and need for port ROS General General: Yes weight change and [...] No wheezing Gastro Gastrointestinal: Yes abdominal pain, No nausea or vomiting, No diarrhea, No constipation, No blood in stool, No acid reflux, No hemorrhoids, No ulcers, No gallbladder problem and No black,tarry stools Christiano Hematologic: No blood thinners, No blood disorders, No bleeding, No anemia and No blood clots Neuro Neurologic: No numbness, No tingling and No weakness Exam Const General: cooperative Orientation: alert and oriented x3 HENMT Head: normal to inspection Neck Neck: normal visual inspection and full ROM Chest Chest palpation & inspection: normal inspection of the chest Resp Effort & Inspection: normal respiratory effort Auscultation: clear to auscultation bilaterally Cardio Rate: regular rate Rhythm: regular rhythm GI Inspection: non-distended Palpation: soft and nontender Skin General: no rashes or lesions noted Neuro General: patient alert and patient oriented x3 Extrem General: full ROM Psych Appearance: grossly normal Mental Status: mental status grossly normal Assessment and Plan Assessment and Plan (1) Pancreas cancer: Status: Acute Qualifiers: Pancreatic malignancy location: head of pancreas Qualified Code(s): C25.0 - Malignant neoplasm of head of pancreas (2) Encounter for insertion of venous access port: Status: Acute Plan I discussed right chest port placement with the patient in detail. I discussed the risks including but not limited to bleeding, infection, line infection, DVT,pneumothorax. Patient understands all the risks and is willing to proceed. Allthe patient's questions were answered. He will hold his Januvia. Freeman Stauffer MD Pager: [facility] [address] [place] [address], [address] [place] [address] Office: I have examined the patient and the H&P has been reviewed. There are no clinicalchanges since date of exam. 03/03/25 1223 <Electronically signed by Freeman Stauffer MD> Cosigner Signature (if applicable): CC: Dr. Freeman Stauffer MD; Dr. Belle Monk MD~ Signed [facility] Work Phone: 1(750) 822-947108-14-2025 Consult note [facility] Medical Records Department [address] [place] [address] Anesthesia Postop Eval I 03/03/25 1345 MR#: [id number] Acct: [id number] Name: ERICK GAUTAM Rep #:[id number] 2 : 1955 69 From: Ethan OSBORN PCP: Dr. Belle Monk MD Status:REG [facility] Y Race: C Location: [place] [address] Anesthesia: Postop Eval I Current Vital Signs Temperature: 98.6 F Pulse Rate: 73 Blood Pressure: 136/87 Respiratory Rate: 14 Pulse Ox: 98 Oxygen Delivery Method: Room Air Assessment Airway patent: Yes Spontaneous unlabored respirations: Yes Mental status: Awake and Calm nausea: No Vomiting: No Anesthesia Complication: No Fluid Hydration Crystalloid volume administer (ml): 500 Total IV fluid infused: 500 Progress Note Anesthesia document: Postop Eval 1 completed: Yes 03/03/25 1345 ARRANGER ASSEMBLER> Date _ Ethan Morocho ARRANGER ASSEMBLER Cosigner Signature: Date CC: ~ Signed [facility]08-14-2025 Discharge summary [facility] Medical Records Department [address] [place] [address] Instructions for Home/Discharge Instructions 03/03/25 1339 MR#: [id number] Acct: [id number] Name: ERICK GAUTAM Rep #:[id number] : 1955 69 From: Freeman albarran MD PCP: Dr. Belle Monk MD Status:REG [facility] Discharge Instructions Procedure Port-A-Cath Diet Discharge Diet: Light diet - advance as tolerated (Pain medication may cause nausea. You should typically eat light foods as you take your pain medication.) Activity Discharge Activity: Return to Normal Activity and May Shower (with your bandage in place in 1-2 days after surgery. DO NOT SHOWER WHEN YOUR PORT IS ACCESSED.) Additional Activity Instructions:: Alternate ibuprofen and Tylenol for pain control Dressing / Incision Call your doctor if your incision/area has: Continuous Slow Oozing, Sudden Increased Bleeding, Increased Pain/ Swelling, Increased Redness and Foul Smelling Discharge Call your doctor if you observe: Fever of 101 or Higher Remove Dressing in: 2 days Cleanse incision/area with: Soap & Water Follow Up Care Please Follow Up With: Freeman Stauffer MD When: as needed [phone] Test Results: Test results from this visit will be discussed in further detail at your follow- up appointment, if applicable. Discharge Plan Admission Attending Provider: Freeman Stauffer Primary Care Provider: Belle Monk Instructions Print Language: Tajik Discharge Orders/Prescriptions Prescriptions: No Action metformin 500 mg tablet 500 mg PO BID insulin glargine-yfgn 100 unit/mL (3 mL) insulin pen 18 unit subcut QHS Patient Comments: INJECT 20 UNITS SUBCUTANEOUSLY DAILY AND ADJUST PER SCHEDULE. Creon 12,000-38,000 -60,000 unit capsule,delayed release(DR/EC) 2 cap PO QAC Rx Instructions: plus 1 cap before snack Januvia 50 mg tablet 50 mg PO QDAY lidocaine-prilocaine 2.5-2.5 % cream 1 applic topical ONCE PRN (Reason: port access) 30 Days Qty: 30 2RF ondansetron 8 mg tablet,disintegrating 8 mg PO Q8H PRN (Reason: nausea and vomiting) Qty: 30 2RF Patient Comments: has not started yet prochlorperazine maleate 10 mg tablet 10 mg PO Q6H PRN (Reason: nausea and vomiting) Qty: 30 2RF Referrals / Follow Up: Belle Monk MD [Primary Care Provider] - Disposition Disposition (needs filled in before D/C Order can be placed): Home, Self Care 03/03/25 1340Freeman Stauffer MD CC: Dr. Belle Monk MD ~ Signed [facility]08-14-2025 Procedure note [facility] Medical Records Department [address] [facility] [place] [address] Operative Report 03/03/25 1338 MR#: [id number] Acct: [id number] Name: ERICK GAUTAM Rep #:[id number] 6 : 1955 69 From: Freeman albarran MD PCP: Dr. Belle Monk MD Status:REG [facility] Location: AC16-1 Operative Report (Standard) Operative Information Date of Procedure: 03/03/25 Pre-Operative Diagnosis: Need for vascular access for chemotherapy Post-Operative Diagnosis: Same Surgery/Procedure Performed: Ultrasound and fluoroscopy guided right chest port placement utilizingright IJ tumbler plater: No Type of Anesthesia: Local MAC RN Documented Start/Stop Times: Operation Date: 03/03/25 13:30 Case Time Into Pre-Op 03/03/25 12:02 Out of Pre-Op 03/03/25 12:59 Anesthesia Start 03/03/25 13:10 Into Room 03/03/25 13:10 Procedure Start 03/03/25 13:24 Procedure End 03/03/25 13:34 Procedure Start Time: 13:24 Procedure Stop Time: :34 Select all DRAINS/GRAFTS/IMPLANTS that apply: Implanted device Implanted device details: 8 [place]ese PowerPort Estimated Blood Loss: 5 Specimen collected: No Description of surgery: After obtaining informed consent patient was brought back to the operating room MAC anesthesia was induced and the right chest and neck were prepped in normal sterile fashion. Ultrasound was used to evaluate both IJs and the right IJ was selected. Next, using a needle, the right IJ was accessed esthela guidewire was passed on into the superior vena cava under fluoroscopy guidance. A small incision was made over the puncture site and the dilator introducer was placed over the guidewire. Next this was capped and the pocket was made for the port. 1% lidocaine with epinephrine was injected in the proposed port site. An incision was made with scalpel. Electrocautery was used to make a pocket under the skin and subcutaneous tissue. Hemostasis was obtained. Next, the catheter was tunneled up to the neck incision site and placed through the introducer. The peel-away introducer was removed and theposition of the catheter was confirmed on fluoroscopy. Next, the catheter was trimmed and attached to the port with the locking device. Interrupted 2-0 Vicryl sutures were used to anchor the port to t he chest wall and then the port was placed inside the pocket. The pocket was then flushed with saline and the port irrigated with saline. There was good blood return and the port flushed easily. Next, heparinwas injected into the port. The skin was closed with subcutaneous interrupted 3-0 Vicryl sutures. A single 3-0 Vicryl sutures placed under the skin at the neck incision site. Steri-Strips were placed as well as op sites. Patient tolerated procedure well, was taken to PACU in stable condition. Chest x-ray will be obtained. Surgical Findings: None Complications Complications: No Admit VTE Documentation VTE Mechan Device Prophylaxis: SCD's 03/03/25 1339 Cosigner Signature (if applicable): CC: Dr. Freeman Stauffer MD; Dr. Belle Monk MD~ Signed [facility]08-14-2025 Consult note [facility] Medical Records Department [address] [place] [address] Pre-Anesthesia Evaluation 03/03/25 1256 MR#: [id number] Acct: [id number] Name: ERICK GAUTAM Rep #:[id number] 2 : 1955 69 From: Claus Suggs MD PCP: Dr. Belle Monk MD Status:REG [facility] Y Race: C Location: [place] [address] ASA Classification* ASA Classification ASA Classification: 2 [...] anesthesia risk assessments. Anesthesia Type Anesthesia Type: MAC (MAC anesthesia with propofol.) History Source History Obtained from:: Patient and Chart Anesthesia Focused Assessment* Temperature: 98.6 F Pulse Rate: 77 Blood Pressure: 136/87 Respiratory Rate: 18 Pulse Ox: 100 Oxygen Delivery Method: Room Air Airway Assessment Mouth opens: >3 cm Mallampati Score: IV Teeth Condition: Caps/Crowns (Patient has a couple crowns left lower jaw. They are tight.) Neck Range of motion (ROM): Limited ROM (Somewhat Decreased) Labs Anesthesia Preop lab: CBC WBC 5.0 K/mm3 (4.4-11.0) 02/21/25 15:08 02/21/25 RBC 4.58 M/mm3 (4.6-6.2) L 02/21/25 15:08 02/21/25 Hgb 13.5 g/dL (13.0-16.5) 02/21/25 15:08 02/21/25 Hct 38.8 % (40-54) L 02/21/25 15:08 02/21/25 Plt Count 210 K/mm3 (150-450) 02/21/25 15:08 02/21/25 CHEMISTRY Potassium 4.5 mmol/L (3.3-5.1) 02/21/25 15:08 02/21/25 Sodium 136 mmol/L (133-145) 02/21/25 15:08 02/21/25 Magnesium 2.3 mg/dL (1.5-2.2) H 02/21/25 15:08 02/21/25 Phosphorus 3.6 mg/dL (2.7-4.5) 02/21/25 15:08 02/21/25 BUN 29 mg/dL (4-19) H 02/21/25 15:08 02/21/25 Creatinine 0.81 mg/dL (0.70-1.20) 02/21/25 15:08 02/21/25 Glucose 395 mg/dL (70-99) H 02/21/25 15:08 02/21/25 POC Glucose 229 mg/dL (74-106) H 01/14/25 11:40 01/14/25 COAG Pre-Assessment Diagnosis/Proposed Procedure Planned Operative Procedure(s): (R) Insertion, Vascular Port right poss left Anesthesia History 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 When Was Last Pacemaker Check QUESTION #4 FULL TEXT: You/Your Family Experience fever (hyperthermia) with Anesthesia Last Oral Intake Last Oral intake: Last Oral Intake NPO since 21:00 03/03/25 12:33 Meds taken in AM with sips of No 03/03/25 12:33 water? 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 cutter operator Female No 02/24/25 08:15 HX of Motion Sickness Yes 02/24/25 08:15 HX of N/V After Surgery Yes 02/24/25 08:15 Non-Smoker Yes 02/24/25 08:15 Duration of Surgery greater No 02/24/25 08:15 than 60 minutes Number of Risk Factors 3 02/24/25 08:15 PONV Score Moderate Risk 02/24/25 08:15 Height & Weight Height & Weight: Anesthesia: Height & Weight Height 5 ft 10 in 03/03/25 12:33 Weight: 80.9 kg 03/03/25 12:33 Body Mass Index (BMI) 25.5 03/03/25 12:33 Respiratory Assessment Respiratory Assessment - abrasive water jet cutter operator: Respiratory Tract Infection Hx - abrasive water jet cutter operator Hx Respiratory Tract Infection No 02/24/25 08:15 STOP Sleep Apnea STOP Sleep Apnea - abrasive water jet cutter operator: STOP Sleep Apnea - abrasive water jet cutter operator Hx Hypertension No 02/24/25 08:15 Hx Sleep Apnea No 02/24/25 08:15 CPAP BIPAP Do you snore loudly (louder No 02/24/25 08:15 than talking or can be heard Do you often feel tired/ No 02/24/25 08:15 fatigued/ sleepy during daytime? Has anyone observed you stop No 02/24/25 08:15 breathing during sleep? STOP Results Negative 02/24/25 08:15 QUESTION #5 FULL TEXT : Do you snore loudly (louder than talking or can be heard through closeddoors)? 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 Specify any problems Hx of Preganancy in last 3 N/A 02/24/25 08:15 Months Nurse Filling Out Transfusion LANEY 02/24/25 08:15 & Questions: Date: 02/24/25 02/24/25 08:15 Time: 08:18 02/24/25 08:15 Patient unable to answer at this time (ie. confused, unrespo /Reproduction History /Reproductive History - abrasive water jet cutter operator: /Reproductive Hx- abrasive water jet cutter operator Hx Now No 02/24/25 08:15 Gestational Age (in weeks): EDC: Hx Hx Para Hx Section SAB No 02/24/25 08:15 Active Medications Active Medications: Current Medications Generic Name Dose Route Start Last Admin Trade Name Freq PRN Reason Stop Dose Admin Cefazolin Sodium 2 gm/ Sodium 110 mls @ 200 mls/hr 03/03/25 13:30 Chloride IV 03/03/25 14:02 INTRAOP ONE Lactated Ringer's 1,000 mls @ 15 mls/hr 03/03/25 12:00 03/03/25 12:39 IV 15 mls/hr .Q48H JACOB Administration PFSH Medical History Encounter for education Wears glasses Arthritis Dietary restriction Non-smoker Regional lymph node metastasis present Pancreas cancer Diabetes mellitus, type 2 Dilated pancreatic duct Dilated bile duct Jaundice Umbilical hernia Gallbladder problem Nausea RUQ pain Cataract Home Medications ?Medication ?Instructions ?Recorded ?Last Taken ?Type metformin 500 mg tablet 500 mg PO BID 01/20/25 Unkno wn History insulin glargine-yfgn 100 unit/mL 18 unit subcut QHS 0 02/21/25 Unknown History (3 mL) subcutaneous pen etwqsv-pgaidpfr-ricugah 2 cap PO QAC 02/21/25 Unknow n History 12,000-38,000-60,000 unit capsule,delayed rel (Creon) sitagliptin phosphate 50 mg tablet 50 mg PO QDAY 02/21 Unknown History (Januvia) lidocaine-prilocaine 2.5 %-2.5 % 1 applic topical ONCE PRN port 02/24/25 Unknown Rx topical cream access 30 days #30 grams ondansetron 8 mg disintegrating 8 mg PO Q8H PRN nausea and 02/24/25 Unknown Rx tablet vomiting #30 tabs prochlorperazine maleate 10 mg 10 mg PO Q6H PRN nausea and 02/24/25 Unknown Rx tablet vomiting #30 tabs Allergy/AdvReac Type Severity Reaction Status Date / Time No Known Allergies Allergy Verified 03/03/25 12:31 Family History Uncle Diabetes Cancer Sister Diabetes Father Cancer Surgical History (Updated 03/03/25 @ 13:[address] Claus Suggs MD) H/O esophagogastroduodenoscopy H/O arthroscopy of right knee H/O right inguinal hernia repair History of appendectomy Social History household members: spouse Smoking Status: Never smoker alcohol intake: never substance use type: does not use Review of Systems (Anesthesia) ROS Narrative System reviewed and no additional complaints, except as documented. 03/03/25 1305 filipe HERRERA> Date _ Claus Suggs MD Cosigner Signature: Date CC: ~ Signed [facility]08-14-2025 History and physical note [facility] Medical Records Department [address] [place] [address] History & Physical Exam 03/03/25 1222 MR#: [id number] Acct: [id number] Name: ERICK GAUTAM Rep #:[id number] 2 : 1955 69 From: Freeman albarran MD PCP: Dr. Blele Monk MD Status:[facility] Location: [place] AC16-1 History and Physical Date of Admission: 03/03/25 Intake Vital Signs 02/21/2513:42 02/25/2512:05 02/24/2513:37 Height 5 ft 11 in 5 ft 11 in 5 ft 11 in Weight: 180 lb 182 lb 2 oz BMI 25.1 25.4 BP 116/69 135/75 H Blood Pressure Location Lt brachial Rt brachial Position Sitting Sitting Respiration 18 18 Pulse 86 85 Pulse Source Monitor Monitor Temp 98.7 F 97.8 F Temp Source Temporal Pulse Oximetry (%) 99 99 Oxygen Delivery Method room air room air Intake Visit Reasons: PORT PLACEMENT Chief Complaint: port placement Accompanied by: Is patient in pain?: No Allergies No Known Allergies Allergy (Verified 02/24/25 12:06) Medications ?Medication ?Instructions ?Recorded ?Confirmed ?Type metformin 500 mg tablet 500 mg PO BID 01/20/25 02/24/25 History insulin glargine-yfgn 100 unit/mL 18 unit subcut QHS 02/21/25 02/24/25 His tory (3 mL) subcutaneous pen xlupll-yaiwvwze-cavmcjd 2 cap PO QAC 02/21/25 02/24/25 History 12,000-38,000-60,000 unit capsule,delayed rel (Creon) sitagliptin phosphate 50 mg tablet 50 mg PO QDAY 02/21/25 02/24/25 History (Onel) lidocaine-prilocaine 2.5 %-2.5 % 1 applic topical ONCE PRN port 02/24/25 02/24/25 Rx topical cream access 30 days #30 grams ondansetron 8 mg disintegrating 8 mg PO Q8H PRN nausea and 02/24/2502/11 Rx tablet vomiting #30 tabs prochlorperazine maleate 10 mg 10 mg PO Q6H PRN nausea and 02/24/2502/11 Rx tablet vomiting #30 tabs Have you fallen in the past year?: No PFSH Medical History Encounter for education Wears glasses Arthritis Dietary restriction Non-smoker Regional lymph node metastasis present Pancreas cancer Diabetes mellitus, type 2 Dilated pancreatic duct Dilated bile duct Jaundice Umbilical hernia Gallbladder problem Nausea RUQ pain Cataract Surgical History H/O arthroscopy of right knee H/O right inguinal hernia repair History of appendectomy Family History Uncle Diabetes CancerSister DiabetesFather Cancer Social History household members: spouse Smoking Status: Never smoker alcohol intake: never substance use type: does not use HPI HPI HPI: Patient is a 69-year-old male here with pancreatic cancer and need for port ROS General General: Yes weight change and [...] cough, No COPD, No asthma, No emphysema andNo wheezing Gastro Gastrointestinal: Yes abdominal pain, No nausea or vomiting, No diarrhea, No constipation, No bloodin stool, No acid reflux, No hemorrhoids, No ulcers, No gallbladder problem and No black,tarry stools Christiano Hematologic: No blood thinners, No blood disorders, No bleeding, No anemia and No blood clots Neuro Neurologic: No numbness, No tingling and No weakness Exam Const General: cooperative Orientation: alert and oriented x3 HENMT Head: normal to inspection Neck Neck: normal visual inspection and full ROM Chest Chest palpation & inspection: normal inspection of the chest Resp Effort & Inspection: normal respiratory effort Auscultation: clear to auscultation bilaterally Cardio Rate: regular rate Rhythm: regular rhythm GI Inspection: non-distended Palpation: soft and nontender Skin General: no rashes or lesions noted Neuro General: patient alert and patient oriented x3 Extrem General: full ROM Psych Appearance: grossly normal Mental Status: mental status grossly normal Assessment and Plan Assessment and Plan (1) Pancreas cancer: Status: Acute Qualifiers: Pancreatic malignancy location: head of pancreas Qualified Code(s): C25.0 - Malignant neoplasm of head of pancreas (2) Encounter for insertion of venous access port: Status: Acute Plan I discussed right chest port placement with the patient in detail. I discussed the risks including but not limited to bleeding, infection, line infection, DVT,pneumothorax. Patient understands all the risks and is willing to proceed. Allthe patient's questions were answered. He will hold his Januvia. Freeman Stauffer MD Pager: [facility] [address] [place], [place] [address], [address] [place] [address] Office: I have examined the patient and the H&P has been reviewed. There are no clinicalchanges since date of exam. 03/03/251222 Cosigner Signature (if applicable): CC: Dr. Freeman Stauffer MD; Dr. Belle Monk MD~ Signed [facility]08-14-2025 [facility] Medical Records Department [address] [place] [address] History Physical Exam 03/03/25 1222 MR#: [id number] Acct: [id number] Name: ERICK GAUTAM Rep #: [id number] : 1955 69 From: Freeman Stauffer MD PCP: Dr. Belle Monk MD Status:[facility] Location: [place] [address] History and Physical Date of Admission: 03/03/25 Intake Vital Signs 02/21/2513:42 02/25/2512:05 02/24/2513:37 Height 5 ft 11 in 5 ft 11 in 5 ft 11 in Weight: 180 lb 182 lb 2 oz BMI 25.1 25.4 BP 116/69 135/75 H Blood Pressure Location Lt brachial Rt brachial Position Sitting Sitting Respiration 18 18 Pulse 86 85 Pulse Source Monitor Monitor Temp 98.7 F 97.8 F Temp Source Temporal Pulse Oximetry (%) 99 99 Oxygen Delivery Method room air room air Intake Visit Reasons: PORT PLACEMENT Chief Complaint: port placement Accompanied by: Is patient in pain?: No Allergies No Known Allergies Allergy (Verified 02/24/25 12:06) Medications ???Medication ???Instructions ???Recorded ???Confirmed ???Type metformin 500 mg tablet 500 mg PO BID 01/20/25 02/24/25 History insulin glargine-yfgn 100 unit/mL 18 unit subcut QHS 02/21/25 02/24/25 History (3 mL) subcutaneous pen hhmuif-qeiwnxzh-gebgdsj 2 cap PO QAC 02/21/25 02/24/25 History 12,000-38,000-60,000 unit capsule,delayed rel (Creon) sitagliptin phosphate 50 mg tablet 50 mg PO QDAY 02/21/25 02/24/25 History (Januvia) lidocaine-prilocaine 2.5 %-2.5 % 1 applic topical ONCE PRN port 02/24/25 02/24/25 R x topical cream access 30 days #30 grams ondansetron 8 mg disintegrating 8 mg PO Q8H PRN nausea and 02/24/25 02/24/25 Rx tablet vomiting #30 tabs prochlorperazine maleate 10 mg 10 mg PO Q6H PRN nausea and 02/24/25 02/24/25 Rx tablet vomiting #30 tabs Have you fallen in the past year?: No PFSH Medical History Encounter for education Wears glasses Arthritis Dietary restriction Non-smoker Regional lymph node metastasis present Pancreas cancer Diabetes mellitus, type 2 Dilated pancreatic duct Dilated bile duct Jaundice Umbilical hernia Gallbladder problem Nausea RUQ pain Cataract Surgical History H/O arthroscopy of right knee H/O right inguinal hernia repair History of appendectomy Family History Uncle Diabetes CancerSister DiabetesFather Cancer Social History household members: spouse Smoking Status: Never smoker alcohol intake: never substance use type: does not use HPI HPI HPI: Patient is a 69-year-old male here with pancreatic cancer and need for port ROS General General: Yes weight change and [...] No wheezing Gastro Gastrointestinal: Yes abdominal pain, No nausea or vomiting, No diarrhea, No constipation, No blood in stool, No acid reflux, No hemorrhoids, No ulcers, No gallbladder problem and No black,tarry stools Christiano Hematologic: No blood thinners, No blood disorders, No bleeding, No anemia and No blood clots Neuro Neurologic: No numbness, No tingling and No weakness Exam Const General: cooperative Orientation: alert and oriented x3 HENMT Head: normal to inspection Neck Neck: normal visual inspection and full [...] Assessment and Plan Assessment and Plan (1) Pancreas cancer: Status: Acute Qualifiers: Pancreatic malignancy locati (more content not included)...[facility]08-07-2025 [facility] [address] [place] [address]. [address] [place] [address] OFFICE VISIT Date of Service: 02/24/25 MR#: [id number] Acct: [id number] Name: ERICK GAUTAM Rep #: [id number] : 1955 Provider: Dr. Lissa Stauffer MD Age/Sex: 69/M Location: [facility] Status: Signed Intake Vital Signs 02/21/25 13:42 02/24/25 12:05 02/24/25 13:37 Height 5 ft 11 in 5 ft 11 in 5 ft 11 in Weight: 180 lb 182 lb 2 oz BMI 25.1 25.4 BP 116/69 135/75 H Blood Pressure Location Lt brachial Rt brachial Position Sitting Sitting Respiration 18 18 Pulse 86 85 Pulse Source Monitor Monitor Temp 98.7 F 97.8 F Temp Source Temporal Pulse Oximetry (%) 99 99 Oxygen Delivery Method room air room air Intake Visit Reasons: PORT PLACEMENT Chief Complaint: port placement Accompanied by: Is patient in pain?: No Allergies No Known Allergies Allergy (Verified 02/24/25 12:06) Medications ?Medication ?Instructions ?Recorded ?Confirmed ?Type metformin 500 mg tablet 500 mg PO BID 01/20/2502/24 History insulin glargine-yfgn 100 unit/mL 18 unit subcut QHS 0 02/21/25 02/24/25 History (3 mL) subcutaneous pen ubjlgu-etoadngf-amvodwi 2 cap PO QAC 02/21/25 History 12,000-38,000-60,000 unit capsule,delayed rel (Creon) sitagliptin phosphate 50 mg tablet 50 mg PO QDAY 02/2102/24/25 History (Januvia) lidocaine-prilocaine 2.5 %-2.5 % 1 applic topical ONCE PRN port 02/24/25 02/24/25 Rx topical cream access 30 days #30 grams ondansetron 8 mg disintegrating 8 mg PO Q8H PRN nausea and 02/24/25 02/24/25 Rx tablet vomiting #30 tabs prochlorperazine maleate 10 mg 10 mg PO Q6H PRN nausea and 02/24/25 02/24/25 Rx tablet vomiting #30 tabs Have you fallen in the past year?: No PFSH Medical History Encounter for education Wears glasses Arthritis Dietary restriction Non-smoker Regional lymph node metastasis present Pancreas cancer Diabetes mellitus, type 2 Dilated pancreatic duct Dilated bile duct Jaundice Umbilical hernia Gallbladder problem Nausea RUQ pain Cataract Surgical History H/O arthroscopy of right knee H/O right inguinal hernia repair History of appendectomy Family History Uncle Diabetes Cancer Sister Diabetes Father Cancer Social History household members: spouse Smoking Status: Never smoker alcohol intake: never substance use type: does not use HPI HPI HPI: Patient is a 69-year-old male here with pancreatic cancer and need for port ROS General General: Yes weight change and [...] cough, No COPD, No asthma, No emphysema andNo wheezing Gastro Gastrointestinal: Yes abdominal pain, No nausea or vomiting, No diarrhea, No constipation, No bloodin stool, No acid reflux, No hemorrhoids, No ulcers, No gallbladder problem and No black,tarry stools Christiano Hematologic: No blood thinners, No blood disorders, No bleeding, No anemia and No blood clots Neuro Neurologic: No numbness, No tingling and No weakness Exam Const General: cooperative Orientation: alert and oriented x3 HENMT Head: normal to inspection Neck Neck: normal visual inspection and full ROM Chest Chest palpation & inspection: normal inspection of the chest Resp Effort & Inspection: normal respiratory effort Auscultation: clear to auscultation bilaterally Cardio Rate: regular rate Rhythm: regular rhythm GI Inspection: non-distended Palpation: soft and nontender Skin General: no rashes or lesions noted Neuro General: patient alert and patient oriented x3 Extrem General: full ROM Psych Appearance: grossly normal Mental Status: mental status grossly normal Assessment and Plan Assessment and Plan (1) Pancreas cancer: Status: Acute Qualifiers: Pancreatic malignancy location: head of pancreas Qualified Code(s): C25.0 - Malignant neoplasm of head of pancreas (2) Encounter for insertion of venous access port: Status: Acute Plan I discussed right chest port placement with the patient in detail. I discussed the risks including but not limited to bleeding, infection, line infection, DVT,pneumothorax. Patient understands all the risks and is willing to proceed. Allthe patient's questions were answered. He will hold his Januvia. Freeman Stauffer MD Pager: [facility] [address] [place] [address], [address] [place] [address] Office: Coding Level of Care Code Off vis,est,level 3 Diagnoses 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 Pancreatic malignancy location: head of pancreas Encounter for insertion of venous access port Z45.2 Clinical Quality Measures Falls Risk Screening/Assistive Devices Have you fallen in the past year?: No 02/24/25 1347 daniela HERRERA> Date _ Freeman Stauffer MD [facility] Signature: Date (if applicable) CC: ~ [facility]08-07-2025 [facility] [address] [place] [address] OFFICE VISIT Date of Service: 02/24/25 1204 MR#: [id number] Acct: [id number] Name: ERICK GAUTAM Rep #: [id number] : 1955 From: Ludivina Guallpa ch MERCHANDISE DIRECTOR MERCHANDISE DIRECTOR-C Age/Sex: 69/M Location: [facility] Status: Signed HPI Subjective Date of Service 02/24/25 Chief Complaint Chemotherapy education- FOLFIRINOX History of Present Illness 69-year-old gentleman who [...] cyst. January 13, 2025 ERCP: Findings: The hospital product specialist film was normal. The esophagus was successfully [...] main bile duct was biopsied with a [employer] miniature biopsy forceps for histology. One 10 [...] was placed into the common bile duct. January 13, 2025 pathology: Diagnostic cytology: No malignant cells identified. Common bile duct mid mass biopsy: Fragments of columnar epithelium with focal atypia favor reactive. February 04, 2025 upper EUS at [facility]: No gross lesions in the entire esophagus, no gross lesions in the entire stomach, plastic biliary stent in the duodenum, a mass was identified in the pancreatic head, tissue was obtained fromthe exam however the Endo sonographic appearance is adenocarcinoma stage T2 N1 M0 by endosonographic criteria. 2 malignant appearing lymph nodes were visualized in the peripancreatic region. February 04, 2025 ERCP at [facility]: The major papilla was adjacent to a diverticulum, prior papillary sphincterotomy appeared open, 1 partially occludedstent from the biliary tree was seen in the major papilla, a single moderate localized biliary stricture was found in the lower third of the main bile duct the scripture was malignant appearing the upper third of the main bile duct and left andright hepatic ducts and all intrahepatic branches were severely dilatedwith a mass causing an obstruction, 1 stent was removed from the biliary tree, the biliary tree was swept and sludge was found, one 10 mm x 14 mm wall flex covered plus metal stent was placed into the common bile duct the stricture was in the distal duct but there was 2 cm above the ampulla free from stenosis. Given that and wishing to allow for extended stent patency the stent was placed with the distal end of the stent intraductal rather than exiting the ampulla. Proximal and distal ends were above and below the stenosisrespectively. 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 February 22, 2025 Bone Scan Whole Body IMPRESSION: 1. No scintigraphic evidence of osseous metastatic disease. 2. Degenerative changes as noted. Interval History The patient is presenting to clinic today accompanied by spouse for an educationvisit to discuss neoadjuvant FOLFIRINOX. CT scans are tentatively scheduled for 03/04/25. [facility] Medical History (Updated 02/24/25 @ 12:13 by Ludivina Manley NP, MERCHANDISE DIRECTOR-C) Encounter for education Wears glasses Arthritis Dietary restriction Non-smoker Regional lymph node metastasis present Pancreas cancer Diabetes mellitus, type 2 Dilated pancreatic duct Dilated bile duct Jaundice Umbilical hernia Gallbladder problem Nausea RUQ pain Cataract Surgical History H/O arthroscopy of right knee H/O right inguinal hernia repair History of appendectomy Family History Uncle Diabetes Cancer Sister Diabetes Father Cancer Social History household members: spouse Smoking Status: Never smoker alcohol intake: never substance use type: does not use ROS ROS Narrative Negative except as documented in the interval HPI Intake Vital Signs 02/21/25 13:42 02/24/25 12:05 Height 5 ft 11 in 5 ft 11 in Weight: 180 lb BMI 25.1 BP 116/69 Blood Pressure Location Lt brachial Position Sitting Respiration 18 Pulse 86 Pulse Source Monitor Temp 98.7 F Temperature Source Temporal Artery Pulse Oximetry (%) 99 Oxygen Delivery Method room air Intake Accompanied by: Is patient in pain?: No Allergies No Known Allergies Allergy (Verified 02/24/25 12:06) Medications ?Medication ?Instructions ?Recorded ?Confirmed ?Type metformin 500 mg tablet 500 mg PO BID 01/20/2502/24 History insulin glargine-yfgn 100 unit/mL 18 unit subcut QHS 0 02/21/25 02/24/25 History (3 mL) subcutaneous pen msoote-rzfztmtq-lpkaopi 2 cap PO QAC 02/21/25 History 12,000-38,000-60,000 unit capsule,delayed rel (Creon) sitagliptin phosphate 50 mg tablet 50 mg PO QDAY 02/2102/24/25 History (Januvia) lidocaine-prilocaine 2.5 %-2.5 % 1 applic topical ONCE PRN port 02/24/25 02/24/25 Rx topical cream access 30 days #30 grams ondansetron 8 mg disintegrating 8 mg PO Q8H PRN nausea and 02/24/25 02/24/25 Rx tablet vomiting #30 tabs prochlorperazine maleate 10 mg 10 mg PO Q6H PRN nausea and 02/24/25 02/24/25 Rx tablet vomiting #30 tabs Have you fallen in the past year?: No Central Venous Access Central Venous Access: No Exam Physical Exam Narrative ECOG 0 Const alert, oriented x3 and no apparent distress General Appearance: comfortable HEENT Face and Sinus: normal facial exam Psych mental status grossly normal Coding Level of Care Code Off vis,est,level 5 Exam Problem Focused Diagnoses 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 Pancreatic malignancy location: head of pancreas Regional lymph node metastasis present C77.9 Encounter for education Z71.9 Assessment and Plan Assessment and Plan (1) Pancreas cancer: Status: Acute Qualifiers: Pancreatic malignancy location: head of pancreas Qualified Code(s): C25.0 - Malignant neoplasm of head of pancreas (2) Regional lymph node metastasis present: Status: Acute (3) Encounter for education: Status: Acute Medications: New lidocaine-prilocaine 2.5-2.5 % 1 applic topical ONCE 30 days PRN 30 grams 2RF port access C25.0 - Malignant neoplasm of head of pancreas, C77.9 - Secondary and unspecified malignant neoplasm of lymphnode, unspecified ondansetron 8 mg PO Q8H PRN 30 tabs 2RF nausea and vomiting C25.0 - Malignant neoplasm of head of pancreas, C77.9 - Secondary and unspecified malignant neoplasm of lymph node, unspecified prochlorperazine maleate 10 mg PO Q6H PRN 30 tabs 2RF nausea and vomiting C25.0 - Malignant neoplasm of head of pancreas, R11.2 - Nausea with vomiting, unspecified, T45.1X5A - Adverse effect of antineoplastic and immunosuppressive drugs, initial encounter Plan 69-year-old gentleman presented with right upper quadrant abdominal pain, obstructive jaundice, common bile duct stricture (stented January 13 at [facility] and again February 04 at [facility] , 2024), anorexia and weight loss. His gallbladder is enlarged by exam and imaging. The clinical and radiologic findings were highly suspicious for a pancreaticobiliary malignancy butcommon bile duct cytology and biopsy were nondiagnostic. Further workup was done at [facility] included upper EUS showing a mass in the pancreatic headand an adenocarcinoma was confirmed pathologically. EUS stage IIB( T2 N1). Comorbid conditions: Diabetes, chronic back pain. 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 Plan: Based on NCCN guidelines and in joint consultation with [facility] pancreaticobiliary cancer team: 1. Neoadjuvant chemotherapy with modified FOLFORINOX advised to be followed by restaging and resection. Treatment with intent to cure. (Horace M,?Jen RR,?Isidro M, et al. Perioperative Modified FOLFIRINOX for Resectable PancreaticCancer:?A Nonrandomized Clinical Trial.?MADDIE Oncol.?2023;108):1027?1035. doi:10.1001/jamaoncol.4.1575). The patient has been thoroughly educated to risks/benefits associated with oxaliplatin, irinotecan,leucovorin, fluorouracil. Specifically, he has been educated to potential side effects, recommendations for symptom management, and circumstances in which he should contact provider immediately, suchas the development of any signs/symptoms of infection inclusive of temperature > 100.4. Encouraged to go directly to ED should fever occur outside normal clinic hours. He has been provided writteneducational information and after hours contact information and prescriptions for prn antiemetics/EMLA cream. A significant amount of time was allotted for questions. All the patient's concerns were a ddressed to his satisfaction and he is agreeable to proceed. Tentatively, he will commence with cycle 1 on 03/08/25. Port to be placed 03/03/25. 2. Complete staging with CT scan of the chest (tentatively scheduled for 03/04/25 ) and a bone scan (performed 02/22/25 negative for skeletal metastasis, these results were reviewed with the patient). 3. Patient is on insulin for pancreatic endocrine insufficiency and Creon for exocrine insufficiency. I spent 65 minutes today reviewing labs, records and history. Time includes coordination of care and interpretation of tests. This also includes time that I spent with the patient for education, as well as documenting clinical information. Clinical Quality Measures Falls Risk Screening/Assistive Devices Have you fallen in the past year?: No 02/24/25 1322 h MERCHANDISE DIRECTOR MERCHANDISE DIRECTOR-C> Date _ Ludivina Manley NP MERCHANDISE DIRECTOR-C Cosigner Signature: Date (if applicable) CC: ~ [facility]08-07-2025 Progress note Author Freeman Stauffer [facility] Note Date/Time February 24, 2025 1:4 7pm [facility] [address] [place] [address] OFFICE VISIT Date of Service: 02/24/25 MR#: [id number] Acct: [id number] Name: ERICK GAUTAM Rep #: [id number] : 1955 Provider: Dr. Lissa Stauffer MD Age/Sex: 69/M Location: [facility] Status: Signed Intake Vital Signs 02/21/25 13:42 02/24/25 12:05 02/24/25 13:37 Height 5 ft 11 in 5 ft 11 in 5 ft 11 in Weight: 180 lb 182 lb 2 oz BMI 25.1 25.4 BP 116/69 135/75 H Blood Pressure Location Lt brachial Rt brachial Position Sitting Sitting Respiration 18 18 Pulse 86 85 Pulse Source Monitor Monitor Temp 98.7 F 97.8 F Temp Source Temporal Pulse Oximetry (%) 99 99 Oxygen Delivery Method room air room air Intake Visit Reasons: PORT PLACEMENT Chief Complaint: port placement Accompanied by: Is patient in pain?: No Allergies No Known Allergies Allergy (Verified 02/24/25 12:06) Medications ?Medication ?Instructions ?Recorded ?Confirmed ?Type metformin 500 mg tablet 500 mg PO BID 01/20/2502/24 History insulin glargine-yfgn 100 unit/mL 18 unit subcut QHS 0 02/21/25 02/24/25 History (3 mL) subcutaneous pen todfaw-mlibxigo-sntbsye 2 cap PO QAC 02/21/25 History 12,000-38,000-60,000 unit capsule,delayed rel (Creon) sitagliptin phosphate 50 mg tablet 50 mg PO QDAY 02/2102/24/25 History (Januvia) lidocaine-prilocaine 2.5 %-2.5 % 1 applic topical ONCE PRN port 02/24/25 02/24/25 Rx topical cream access 30 days #30 grams ondansetron 8 mg disintegrating 8 mg PO Q8H PRN nausea and 02/24/25 02/24/25 Rx tablet vomiting #30 tabs prochlorperazine maleate 10 mg 10 mg PO Q6H PRN nausea and 02/24/25 02/24/25 Rx tablet vomiting #30 tabs Have you fallen in the past year?: No PFSH Medical History Encounter for education Wears glasses Arthritis Dietary restriction Non-smoker Regional lymph node metastasis present Pancreas cancer Diabetes mellitus, type 2 Dilated pancreatic duct Dilated bile duct Jaundice Umbilical hernia Gallbladder problem Nausea RUQ pain Cataract Surgical History H/O arthroscopy of right knee H/O right inguinal hernia repair History of appendectomy Family History Uncle Diabetes Cancer Sister Diabetes Father Cancer Social History household members: spouse Smoking Status: Never smoker alcohol intake: never substance use type: does not use HPI HPI HPI: Patient is a 69-year-old male here with pancreatic cancer and need for port ROS General General: Yes weight change and [...] No wheezing Gastro Gastrointestinal: Yes abdominal pain, No nausea or vomiting, No diarrhea, No constipation, No blood in stool, No acid reflux, No hemorrhoids, No ulcers, No gallbladder problem and No black,tarry stools Christiano Hematologic: No blood thinners, No blood disorders, No bleeding, No anemia and No blood clots Neuro Neurologic: No numbness, No tingling and No weakness Exam Const General: cooperative Orientation: alert and oriented x3 HENMT Head: normal to inspection Neck Neck: normal visual inspection and full ROM Chest Chest palpation & inspection: normal inspection of the chest Resp Effort & Inspection: normal respiratory effort Auscultation: clear to auscultation bilaterally Cardio Rate: regular rate Rhythm: regular rhythm GI Inspection: non-distended Palpation: soft and nontender Skin General: no rashes or lesions noted Neuro General: patient alert and patient oriented x3 Extrem General: full ROM Psych Appearance: grossly normal Mental Status: mental status grossly normal Assessment and Plan Assessment and Plan (1) Pancreas cancer: Status: Acute Qualifiers: Pancreatic malignancy location: head of pancreas Qualified Code(s): C25.0 - Malignant neoplasm of head of pancreas (2) Encounter for insertion of venous access port: Status: Acute Plan I discussed right chest port placement with the patient in detail. I discussed the risks including but not limited to bleeding, infection, line infection, DVT,pneumothorax. Patient understands all the risks and is willing to proceed. Allthe patient's questions were answered. He will hold his Januvia. Freeman Stauffer MD Pager: [facility] [address] [place] [address], [address] [place] [address] Office: Coding Level of Care Code Off vis,est,level 3 Diagnoses 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 Pancreatic malignancy location: head of pancreas Encounter for insertion of venous access port Z45.2 Clinical Quality Measures Falls Risk Screening/Assistive Devices Have you fallen in the past year?: No 02/24/25 8687 <Electronically signed by Freeman suarez MD> Date _ Freeman Stauffer MD Cosigner Signature: Date (if applicable) CC: ~ [facility] Work Phone: [phone]) 403-498708-07-2025 Progress note Author Ludivina Manley [facility] Note Date/Time February 24, 2025 1:2 2pm [facility] [place] [address] OFFICE VISIT Date of Service: 02/24/25 1204 MR#: [id number] Acct: [id number] Name: ERICK GAUTAM Rep #: [id number] : 1955 From: Ludivina Guallpa ch MERCHANDISE DIRECTOR MERCHANDISE DIRECTOR-C Age/Sex: 69/M Location: [facility] Status: Signed HPI Subjective Date of Service 02/24/25 Chief Complaint Chemotherapy education- FOLFIRINOX History of Present Illness 69-year-old gentleman who [...] cyst. January 13, 2025 ERCP: Findings: The hospital product specialist film was normal. The esophagus was successfully [...] main bile duct was biopsied with a [employer] miniature biopsy forceps for histology. One 10 [...] was placed into the common bile duct. January 13, 2025 pathology: Diagnostic cytology: No malignant cells identified. Common bile duct mid mass biopsy: Fragments of columnar epithelium with focal atypia favor reactive. February 04, 2025 upper EUS at [facility]: No gross lesions in the entire esophagus, no gross lesions in the entire stomach, plastic biliary stent in the duodenum, a mass was identified in the pancreatic head, tissue was obtained fromthe exam however the Endo sonographic appearance is adenocarcinoma stage T2 N1 M0 by endosonographic criteria. 2 malignant appearing lymph nodes were visualized in the peripancreatic region. February 04, 2025 ERCP at [facility]: The major papilla was adjacent to a diverticulum, prior papillary sphincterotomy appeared open, 1 partially occludedstent from the biliary tree was seen in the major papilla, a single moderate localized biliary stricture was found in the lower third of the main bile duct the scripture was malignant appearing the upper third of the main bile duct and left and right hepatic ducts and all intrahepatic branches were severely dilatedwith a mass causing an obstruction, 1 stent was removed from the biliary tree, the biliary tree was swept and sludge was found, one 10 mm x 14 mm wall flex covered plus metal stent was placed into the common bile duct the stricture was in the distal duct but there was 2 cm above the ampulla free from stenosis. Given that and wishing to allow for extended stent patency the stent was placed with the distal end of the stent intraductal rather than exiting the ampulla. Proximal and distal ends were above and below the stenosis respectively. 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 February 22, 2025 Bone Scan Whole Body IMPRESSION: 1. No scintigraphic evidence of osseous metastatic disease. 2. Degenerative changes as noted. Interval History The patient is presenting to clinic today accompanied by spouse for an educationvisit to discuss neoadjuvant FOLFIRINOX. CT scans are tentatively scheduled for 03/04/25. [facility] Medical History (Updated 02/24/25 @ 12:13 by Ludivina Manley MERCHANDISE DIRECTOR, MERCHANDISE DIRECTOR-C) Encounter for education Wears glasses Arthritis Dietary restriction Non-smoker Regional lymph node metastasis present Pancreas cancer Diabetes mellitus, type 2 Dilated pancreatic duct Dilated bile duct Jaundice Umbilical hernia Gallbladder problem Nausea RUQ pain Cataract Surgical History H/O arthroscopy of right knee H/O right inguinal hernia repair History of appendectomy Family History Uncle Diabetes Cancer Sister Diabetes Father Cancer Social History household members: spouse Smoking Status: Never smoker alcohol intake: never substance use type: does not use ROS ROS Narrative Negative except as documented in the interval HPI Intake Vital Signs 02/21/25 13:42 02/24/25 12:05 Height 5 ft 11 in 5 ft 11 in Weight: 180 lb BMI 25.1 BP 116/69 Blood Pressure Location Lt brachial Position Sitting Respiration 18 Pulse 86 Pulse Source Monitor Temp 98.7 F Temperature Source Temporal Artery Pulse Oximetry (%) 99 Oxygen Delivery Method room air Intake Accompanied by: Is patient in pain?: No Allergies No Known Allergies Allergy (Verified 02/24/25 12:06) Medications ?Medication ?Instructions ?Recorded ?Confirmed ?Type metformin 500 mg tablet 500 mg PO BID 01/20/2502/24 History insulin glargine-yfgn 100 unit/mL 18 unit subcut QHS 0 02/21/25 02/24/25 History (3 mL) subcutaneous pen nyqtxv-koxfuohc-zalwerd 2 cap PO QAC 02/21/25 History 12,000-38,000-60,000 unit capsule,delayed rel (Creon) sitagliptin phosphate 50 mg tablet 50 mg PO QDAY 02/2102/24/25 History (Januvia) lidocaine-prilocaine 2.5 %-2.5 % 1 applic topical ONCE PRN port 02/24/25 02/24/25 Rx topical cream access 30 days #30 grams ondansetron 8 mg disintegrating 8 mg PO Q8H PRN nausea and 02/24/25 02/24/25 Rx tablet vomiting #30 tabs prochlorperazine maleate 10 mg 10 mg PO Q6H PRN nausea and 02/24/25 02/24/25 Rx tablet vomiting #30 tabs Have you fallen in the past year?: No Central Venous Access Central Venous Access: No Exam Physical Exam Narrative ECOG 0 Const alert, oriented x3 and no apparent distress General Appearance: comfortable HEENT Face and Sinus: normal facial exam Psych mental status grossly normal Coding Level of Care Code Off vis,est,level 5 Exam Problem Focused Diagnoses 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 Pancreatic malignancy location: head of pancreas Regional lymph node metastasis present C77.9 Encounter for education Z71.9 Assessment and Plan Assessment and Plan (1) Pancreas cancer: Status: Acute Qualifiers: Pancreatic malignancy location: head of pancreas Qualified Code(s): C25.0 - Malignant neoplasm of head of pancreas (2) Regional lymph node metastasis present: Status: Acute (3) Encounter for education: Status: Acute Medications: New lidocaine-prilocaine 2.5-2.5 % 1 applic topical ONCE 30 days PRN 30 grams 2RF port access C25.0 - Malignant neoplasm of head of pancreas, C77.9 - Secondary and unspecified malignant neoplasm of lymph node, unspecified ondansetron 8 mg PO Q8H PRN 30 tabs 2RF nausea and vomiting C25.0 - Malignant neoplasm of head of pancreas, C77.9 - Secondary and unspecified malignant neoplasm of lymph node, unspecified prochlorperazine maleate 10 mg PO Q6H PRN 30 tabs 2RF nausea and vomiting C25.0 - Malignant neoplasm of head of pancreas, R11.2 - Nausea with vomiting, unspecified, T45.1X5A - Adverse effect of antineoplastic and immunosuppressive drugs, initial encounter Plan 69-year-old gentleman presented with right upper quadrant abdominal pain, obstructive jaundice, common bile duct stricture (stented January 13 at [facility] and again February 04 at [facility] , 2024), anorexia and weight loss. His gallbladder is enlarged by exam and imaging. The clinical and radiologic findings were highly suspicious for a pancreaticobiliary malignancy but common bile duct cytology and biopsy were nondiagnostic. Further workup was done at [facility] included upper EUS showing a mass in the pancreatic head and an adenocarcinoma was confirmed pathologically. EUS stage IIB( T2 N1). Comorbid conditions: Diabetes, chronic back pain. 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 Plan: Based on NCCN guidelines and in joint consultation with [facility] pancreaticobiliary cancer team: 1. Neoadjuvant chemotherapy with modified FOLFORINOX advised to be followed by restaging and resection. Treatment with intent to cure. (Horace M,?Jen MACIEL,?Isidro Caldera, et al. Perioperative Modified FOLFIRINOX for Resectable Pancreatic Cancer:?A Nonrandomized Clinical Trial.?MADDIE Oncol.?2023;10(8):1027?1035. doi:10.1001/jamaoncol.4.1575). The patient has been thoroughly educated to risks/benefits associated with oxaliplatin, irinotecan, leucovorin, fluorouracil. Specifically, he has been educated to potential side effects, recommendations for symptom management, and circumstances in which he should contact provider immediately, such as the development of any signs/symptoms of infection inclusive of temperature > 100.4. Encouraged to go directly to ED should fever occur outside normal clinic hours. He has been provided written educational information and after hours contact information and prescriptions for prn antiemetics/EMLA cream. A significant amount of time was allotted for questions. All the patient's concerns were addressed to his satisfaction and he is agreeable to proceed. Tentatively, he will commence with cycle 1 on 03/08/25. Port to be placed 03/03/25. 2. Complete staging with CT scan of the chest (tentatively scheduled for 03/04/25 ) and a bone scan (performed 02/22/25 negative for skeletal metastasis, these results were reviewed with the patient). 3. Patient is on insulin for pancreatic endocrine insufficiency and Creon for exocrine insufficiency. I spent 65 minutes today reviewing labs, records and history. Time includes coordination of care and interpretation of tests. This also includes time that I spent with the patient for education, as well as documenting clinical information. Clinical Quality Measures Falls Risk Screening/Assistive Devices Have you fallen in the past year?: No 02/24/25 1322 <Electronically signed by Ludivina Allreddeborah yip MERCHANDISE DIRECTOR MERCHANDISE DIRECTOR-C> Date _ Ludivina Kimach MERCHANDISE DIRECTOR MERCHANDISE DIRECTOR-C Cosigner Signature: Date (if applicable) CC: ~ [facility] Work Phone: 1(222) 150-321708-05-2025 Nuclear medicine Diagnostic study note [facility] Imaging Services [address] [place] [address] Bone Scan Whole Body MR#: [id number] Acct: [id number] Name: ERICK GAUTAM Rep #: [id number] : 1955 M 69 From: Huang Santiago MD PCP: Dr. Belle Monk MD Status: REG CLI Study:Bone Scan Whole Body Date of Exam: 02/22/25 Exam# [id number] Ordering Dr: Petra Sawyer MD PROCEDURE: BONE SCAN WHOLE BODY 02/22/2025 REASON FOR EXAM: PANCREATIC CA TECHNIQUE: Delayed anterior and posterior whole-body bone scan after radiopharmaceutical administration RADIOPHARMACEUTICAL: 20 mCi Technetium-99m MDP IV COMPARISON: None. FINDINGS: Degenerative changes are seen in the bilateral acromioclavicular joints, bilateral knees,, bilateral 1st carpal-metacarpal joints, and to a lesser extent the spine, elbows, wrists, feet, and sternoclavicular joints. No findings are seen to suggest the presence of osseous metastatic disease. NM/Bone Scan Whole Body IMPRESSION: 1. No scintigraphic evidence of osseous metastatic disease. 2. Degenerative changes as noted. Reading Location: [place] [address] CC: Dr. Belle Monk MD; Dr. Petra Sawyer MD ~ [employer] Engineer: Signed [facility]07-24-2025 Telephone encounter Note* Telephone Encounter - CADENCE Gardner - 02/10/2025 10:12 AM EDT I have ordered CT and labs. Will need to arrange an appt in 10 weeks and a return with Dr. Alejo. Orders Placed This Encounter CT ABDOMEN/PELVIS WITH CONTRAST CT CHEST WITH CONTRAST CA 19-9 CBC, EDIF, PLATELET COMPREHENSIVE METABOLIC PANEL HEMOGLOBIN A1C PREALBUMIN PT,INR,PTT [facility]07-24-2025 Miscellaneous Notes* Telephone Encounter - CADENCE Gardner - 02/10/2025 10:12 AM EDT I have ordered CT and labs. Will need to arrange an appt in 10 weeks and a return with Dr. Alejo. Orders Placed This Encounter CT ABDOMEN/PELVIS WITH CONTRAST CT CHEST WITH CONTRAST CA 19-9 CBC, EDIF, PLATELET COMPREHENSIVE METABOLIC PANEL HEMOGLOBIN A1C PREALBUMIN PT,INR,PTT documented in this [facility] Nurse Surgical operation note* Boo Banerjee RN - 02/04/2025 3:04 PM EDT Patient with blood sugar 229. Previously blood sugar was 273 and [address] Stack and no orders given to treat blood sugar. [facility]07-18-2025 Nurse Note* Boo Banerjee RN - 02/04/2025 3:04 PM EDT Patient with blood sugar 229. Previously blood sugar was 273 and [address] Stack and no orders given to treat blood sugar. * Boo Banerjee RN - 02/04/2025 2:31 PM EDT Patient to PACU Plus per homer and report given to Cale Banerjee RN. * Boo Banerjee RN - 02/04/2025 12:45 PM EDT Report given to RN. [place] room K 226 [place] documented [facility] this [facility] Nurse Surgical operation note* Boo Banerjee RN - 02/04/2025 2:31 PM EDT Patient to PACU Plus per homer and report given to Cale Banerjee RN. [facility]07-18-2025 Nurse Note* Nursing Notes - Daisy Razo RN - 02/04/2025 2:26 PM EDT Report called to PACU PLUS stent card to chart [facility]07-18-2025 Miscellaneous Notes* Nursing Notes - Daisy Razo RN - 02/04/2025 2:26 PM EDT Report called to PACU PLUS stent card to chart * Nursing Notes - Daisy Razo RN - 02/04/2025 2:15 PM EDT Plastic stent removed and intact * Nursing Notes - Daisy Razo RN - 02/04/2025 2:08 PM EDT EUs complete ercp begun * Nursing Notes - Daisy Razo RN - 02/04/2025 1:45 PM EDT Stent removed and intact documented in this encounterOSUniversity [facility]07-[facility]-20[facility] Nurse Note* Nursing Notes - Daisy Razo RN - 02/04/2025 2:15 PM EDT Plastic stent removed and intact [facility]07-18-2025 Nurse Note* Nursing Notes - Daisy Razo RN - 02/04/2025 2:08 PM EDT EUs complete ercp begun [facility]07-18-2025 Nurse Note* Nursing Notes - Daisy Razo RN - 02/04/2025 1:45 PM EDT Stent removed and intact [facility]07-18-2025 History and physical note* Baldomero Clemons MD - 02/04/2025 12:45 PM EDT ENDOSCOPIC PREPROCEDURE HISTORY AND PHYSICAL HISTORY OF PRESENT ILLNESS: Erick Gautam is a 69 y.o. male seen in the preoprocedure area at [facility]. The indication for endoscopic evaluation includes: [...] TIMES DAILY WITH MEALS Pancreatic enzymes (Creon) 44842-[address]-[address] units [address] Particles Take two by mouth with meals and one with snacks daily. Current Outpatient Medications: Januvia 25 MG tablet, Take 1 tablet by mouth daily., Disp: , Rfl: metFORMIN 500 MG tablet, Take 1 tablet by mouth 2 times daily with meals., Disp: , Rfl: Pancreatic enzymes (Creon) 02551-[address] units [address] Particles, Take two by [...] EUS/ERCP using General Anesthesia. Baldomero Clemons MD [facility] Work Phone: 1(815) 616-442807-18-2025 History and physical note* Baldomero Clemons MD - 02/04/2025 12:45 PM EDT ENDOSCOPIC PREPROCEDURE HISTORY AND PHYSICAL HISTORY OF PRESENT ILLNESS: Erick Gautam is a 69 y.o. male seen in the preoprocedure area at [facility]. The indication for endoscopic evaluation includes: [...] TIMES DAILY WITH MEALS Pancreatic enzymes (Creon) 54331-[address] units [address] Particles Take two by mouth with meals and one with snacks daily. Current Outpatient Medications: Januvia 25 MG tablet, Take 1 tablet by mouth daily., Disp: , Rfl: metFORMIN 500 MG tablet, Take 1 tablet by mouth 2 times daily with meals., Disp: , Rfl: Pancreatic enzymes (Creon) 86187-[address] units [address] Particles, Take two by [...] Anesthesia. Baldomero Clemons MD documented in [facility]OS[id number] Nurse Surgical operation note* Boo Banerjee RN - 02/04/2025 12:45 PM EDT Report given to RN. Patient going to room K 226 per [facility]07-[facility] History of Present illness Narrative* Berna Perry RD - 02/02/2025 1:00 PM EDT OUTPATIENT NUTRITION ASSESSMENT Pt is present in the [facility]: [x] Yes [] No; Pt currently not in the [facility] during time of call. Discussed abstract writer is unable to provide MNT to pt d/t dietetics state licensure laws R/T [id number] telehealth. This visit is being conducted by real time phone, including > 10 minutes of medical discussion. . During the scheduling process, this patient has verbally consented to the submission of Telehealthvisits and the patient is aware of the risks, benefits, and possible coinsurance/copay costs. Medical Genetics Director resource utilized: N/A Referring Provider: Baldomero Alejo [...] times daily with meals. Pancreatic enzymes (Creon) 83073-[address] Particles Take two by [...] bread with butter and jelly Snack Lunch [place] sandwich with cheese and tomato, apple slices, [...] pt to reach out Berna Perry RD, JET INSPECTOR,LD Registered Dietitian Sheet Roller Operator documented in this encounterOhioHealth [facility]07-10-2025 History of Present illness Narrative* Adán Daniel MD - 01/27/2025 2:00 PM EDT Images from the original note were not included. Chief Complaint: Chief Complaint Patient presents with Follow-up Clinical Care Team: Referring Provider: Petra Sawyer MB* Primary Care Provider: Belle Monk History of Present Illness: Mr. Gautam is a 69 y.o. male with a past medical history significant for DM2. [facility] for surgical evaluation [...] Resp 14 Ht 1.778 m (5' 10) Wt80.4 kg (177 lb 3.2 oz) Comment: shoes [...] but not bedbound (Capable of only limited self- care, confined to bed or chair 50% or [...] has been made at this time. 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 We discussed management options including further work-up with EUS/biopsy and ERCP with metal stent placement versus upfront surgery. We elected to proceed withEUS and ERCP. If this is pancreatic cancer, [...] MD Surgical Oncology Fellow Department of Surgery * Baldomero Alejo MD - 01/27/2025 2:00 PM EDT Surgical Oncology Attending Mr Gautam is a 69yo otherwise healthy man who presented with abdominal pain and then jaundice. 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 Aplastic stent was placed. CT A/P and MRI [...] I recommend urgent EUS with FNA and ERCPat same time to exchange biliary stent. If [...] arise in the meantime. documented in this encounterOSU [facility]07-10-2025 Instructions* Patient Instructions* Morena Centeno RN - 01/27/2025 2:00 PM EDT We have sent a prescription for pancreatic enzymes to your pharmacy. If you have any issues with getting this filled, then please contact our office. * Attachments The following attachments cannot be sent through Care Everywhere. * Pancreatic Enzymes (The Joseph) (Tajik) documented in this encounterOSU [facility]06-27-2025 Discharge summary Author Elin Benites [facility] Note Date/Time January 14, 2025 10:5 6am [facility] Medical Records Department [address] [place] [address] Instructions for Home/Discharge Instructions 01/14/25 1042 MR#: [id number] Acct: [id number] Name: ERICK GAUTAM Rep #:[id number] : 1955 69 From: Elin Benites [...] MD; Dr. Matilde Henry MD ~ Signed [facility] Work Phone: 1(841) 623-711306-27-2025 Discharge summary [facility] Medical Records Department [address] [place] [address] Instructions for Home/Discharge Instructions 01/14/25 1042 MR#: [id number] Acct: [id number] Name: ERICK GAUTAM Rep #:[id number] : 1955 69 From: Elin Benites [...] be placed): Home, Self Care 01/14/25 1056Elin Benites DO CC: Dr. Belle Monk MD; Dr. Matilde Henry MD ~ [facility]06-27-2025 [facility] Medical Records Department [address] [place] [address] Discharge Summary 01/14/25 1056 MR#: [id number] Acct: [id number] Name: ERICK GAUTAM Rep #: [id number] : 1955 69 From: Elin Benites DO PCP: Dr. Belle Monk MD Status:DIS IN [id number] Date of Admission: 01/12/25 Date of Discharge: 01/14/25 Primary Care Physician: Dr. Belle Monk MD Consultations 01/12/25 15:01 Consult: Gastroenterology Routine Consulting Provider: [facility] Reason for Consult: RUQ pain, jaundice [...] was seen in the emergency room at [facility] with complaints of jaundice and [...] right bladder base. Patient was admitted to [place] [address], and MRCP was obtained, it was read [...] Antibody < 0.2, Sm (Krishna) Antibody <0.2, COTTON FARMER Antibody <0.2, Scl-70 Scleroderma Ab 0.3, Double Strand DNA Ab <1, Antichromatin Antibodies <0.2, Centromere (more content not included)...[facility]06-27-2025 Radiology Diagnostic study note [facility] Imaging Services [address] [place], [place] [id number] ERCP Biliary/Pancreas MR#: [id number] Acct: [id number] Name: ERICK GAUTAM Rep #: [id number] : 1955 M 69 From: Huang Santiago MD PCP: Dr. Belle Monk MD Status: ADM IN Study:ERCP Biliary/Pancreas Date of Exam: 01/13/25 Exam# [id number] Ordering Dr: Larry Webber DO PROCEDURE: ERCP BILIARY/PANCREAS; O.R. FLUORO FOR C-ARM 01/13/2025 REASON FOR EXAM: ERCP TECHNIQUE: Intraoperative fluoroscopy for ERCP. 7 fluoroscopic images were also obtained. Fluoroscopy time: 67.1 seconds. 21.38 mGy dose. RAD/ERCP Biliary/Pancreas IMPRESSION: Intraoperative fluoroscopy for ERCP. 7 fluoroscopic images were also obtained. Reading Location: [place] [address] CC: Dr. Belle Monk MD; Trevon Webber DO ~ [employer] Engineer: Signed [facility]06-27-2025 Radiology Diagnostic study note [facility] Imaging Services [address] [place] [address] O.R. Fluoro for C-Arm MR#: [id number] Acct: [id number] Name: ERICK GAUTAM Rep #: [id number] : 1955 M 69 From: Huang Santiago MD PCP: Dr. Belle Monk MD Status: ADM IN Study:O.R. Fluoro for C-Arm Date of Exam: 01/13/25 Exam# [id number] Ordering Dr: Larry Webber DO PROCEDURE: ERCP BILIARY/PANCREAS; O.R. FLUORO FOR C-ARM 01/13/2025 REASON FOR EXAM: ERCP TECHNIQUE: Intraoperative fluoroscopy for ERCP. 7 fluoroscopic images were also obtained. Fluoroscopy time: 67.1 seconds. 21.38 mGy dose. RAD/O.R. Fluoro for C-Arm IMPRESSION: Intraoperative fluoroscopy for ERCP. 7 fluoroscopic images were also obtained. Reading Location: [place] [address] CC: Dr. Belle Monk MD; Trevon Webber DO ~ [employer] Engineer: Signed [facility]06-26-2025 Consult note Author Bernarda Rizo [facility] Note Date/Time January 13, 2025 6:04 pm [facility] Medical Records Department [address] [place] [address] Anesthesia Postop Eval II 01/13/25 1803 MR#: [id number] Acct: [id number] Name: ERICK GAUTAM Rep #:[id number] : 1955 69 From: Bernarda Rizo CRNA PCP: Dr. Belle Monk MD Status:ADM IN Y Race: C Location: MS3 MS319 -1 Anesthesia Postop Eval I Sum Postop Eval Completion status Anesthesia document: Postop Eval 1 completed: Yes Anesthesia Postop Eval I Summary Anesthesia Postop Eval I Summary: Anesthesia Postop Eval I: Assessment Summary Airway patent Yes 01/13/25 14:38 ARRANGER ASSEMBLER.TNES Spontaneous unlabored Yes 01/13/25 14:38 ARRANGER ASSEMBLER.TNES respirations Mental status nausea No 01/13/25 14:38 ARRANGER ASSEMBLER.TNES Vomiting No 01/13/25 14:38 ARRANGER ASSEMBLER.TNES Anesthesia Postop Eval I: Fluid Summary Crystalloid volume administer 800 01/13/25 14:38 ARRANGER ASSEMBLER.TNES (ml) Colloids volume administered ( ml) Blood Product volume administered (ml) Total IV fluid infused 800 01/13/25 14:38 ARRANGER ASSEMBLER.TNES Anesthesia Postop Eval I: Summary Notes Anesthesia Complication No 01/13/25 14:38 ARRANGER ASSEMBLER.TNES Anesthesia Complication Comment: Post-operative progress note Anesthesia: Postop Eval II Evaluation Mental status: Awake Pain Level: 2 nausea: No Vomiting: No 01/13/25 1804 <Electronically signed by Bernarda العلي CRNA> Date _ Bernarda Rizo ARRANGER ASSEMBLER Cosigner Signature: Date CC: ~ Signed [facility] Work Phone: 1(816) 954-353106-26-2025 Progress note Author Elin Benites [facility] Note Date/Time January 13, 2025 4:54 pm [facility] Medical Records Department [address] [place] [address] [place] [address] Progress Note - Hospitalist 01/13/25 1650 MR#: [id number] Acct: [id number] Name: ERICK GAUTAM NICK Rep #:[id number] : 1955 69 From: Elin Benites DO PCP: Dr. Belle Monk MD Status:ADM IN Location: [id number] Reason for Visit Reason for Visit: Diagnoses Type 2 diabetes mellitus without complications (01/12/25) Other specified diseases of biliary tract (01/12/25) Other specified diseases of pancreas (01/12/25) Right upper quadrant pain (01/12/25) Unspecified jaundice (01/12/25) Subjective Subjective Patient was seen and examined today, he underwent an ERCP today, I talked directly with the equipment worker who stated there was a neoplasm in the common bile duct, a stent was placed. Discussions were carried out with the family and the patient as to where he would want to be referred to, gastroenterology stated that he would recommend either the [facility] or [facility]. At this time, patient's would prefer the [facility] but the patient stated that he [...] (Auto) 70.7 H, Lymph % (Auto) 16.9 L,Gillespie % (Auto) 9.9, Eos % (Auto) 1.8, [...] ASYA-1 Antibody TNP, Sm (Krishna) Antibody TNP, COTTON FARMER Antibody TNP, Scl-70 Scleroderma Ab TNP, Antichromatin [...] pancreatic duct. Left renal cyst. Reading Location: [place] [address] Physical Exam Const alert, oriented x3 and [...] team: 35-minute Charges/Coding Visit Charges Inpatient E&M: 16567 Subs Hosp L2 01/13/25 1654 <Electronically signed by Elin Benites DO> Cosigner Signature (if applicable): CC: ~ Signed [facility] Work Phone: 1(426) 200-316006-26-2025 Consult note [facility] Medical Records Department [address] [place] [address] Anesthesia Postop Eval II 01/13/25 1803 MR#: [id number] Acct: [id number] Name: ERICK GAUTAM Rep #:[id number] : 1955 69 From: Bernarda Rizo CRNA PCP: Dr. Belle Monk MD Status:ADM IN Y Race: C Location: MS3 MS319 -1 Anesthesia Postop Eval I Sum Postop Eval Completion status Anesthesia document: Postop Eval 1 completed: Yes Anesthesia Postop Eval I Summary Anesthesia Postop Eval I Summary: Anesthesia Postop Eval I: Assessment Summary Airway patent Yes 01/13/25 14:38 ARRANGER ASSEMBLER.TNES Spontaneous unlabored Yes 01/13/25 14:38 ARRANGER ASSEMBLER.TNES respirations Mental status nausea No 01/13/25 14:38 ARRANGER ASSEMBLER.TNES Vomiting No 01/13/25 14:38 ARRANGER ASSEMBLER.TNES Anesthesia Postop Eval I: Fluid Summary Crystalloid volume administer 800 01/13/25 14:38 ARRANGER ASSEMBLER.TNES (ml) Colloids volume administered ( ml) Blood Product volume administered (ml) Total IV fluid infused 800 01/13/25 14:38 ARRANGER ASSEMBLER.TNES Anesthesia Postop Eval I: Summary Notes Anesthesia Complication No 01/13/25 14:38 ARRANGER ASSEMBLER.TNES Anesthesia Complication Comment: Post-operative progress note Anesthesia: Postop Eval II Evaluation Mental status: Awake Pain Level: 2 nausea: No Vomiting: No 01/13/25 1804 a ARRANGER ASSEMBLER> Date _ Bernarda Sirca ARRANGER ASSEMBLER Cosigner Signature: Date CC: ~ Signed [facility]06-26-2025 Procedure note [facility] Medical Records Department [address] [place] [address] Operative Report - CC Letter MR#: [id number] Acct: [id number] Name: ERICK GAUTAM Rep #:[id number] 4 : 1955 69 From: Trevon Friend DO PCP: Dr. Belle Monk MD Status:ADM IN 01/13/[address] [address] Re : ERCP procedure for Erick Gautam [...] This report has been signed electronically. 01/13/25 173 Date _ Trevon Webber DO Cosigner Signature: Date (if indicated) CC: Dr. Blele Monk MD; Dr. Elin Benites DO; Dr. Matilde Henry MD ~ Date Dictated: 01/13/25 1301 Date Transcribed: Avaya Engineer: RF Signed [facility]06-26-2025 Procedure note [facility] Medical Records Department [address] [place] [address] ERCP Report MR#: [id number] Acct: [id number] Name: GAUTAMERICK Rep #:[id number] : 1955 69 From: Trevon Webber [...] hours 42 minutes 35 seconds Findings: The hospital product specialist film was normal. The esophagus was successfully [...] main bile duct was biopsied with a Sunsea miniature biopsy forceps for histology. One 10 [...] bile duct. Procedure Code(s): --- Professional --- 49524, Endoscopic retrograde cholangiopancreatography (ERCP); with placement of endoscopic stent into biliary or pancreatic duct, including pre- and post-dilation and guide wire passage, when performed, including sphincterotomy, when performed, each stent 69900, 51, Endoscopic retrograde cholangiopancreatography (ERCP); with removal of calculi/debris from biliary/pancreatic duct(s) 60940, 59, Endoscopic retrograde cholangiopancreatography (ERCP); with biopsy, single or multiple 59890, Endoscopic cannulation of papilla with direct visualization of pancreatic/common bile duct(s) (List separately in addition to code(s) for primary procedure) 49104, 26, Endoscopic catheterization of the biliary ductal system, radiological supervision and interpretation CPT copyright 2021 [employer]. All rights reserved. The codes documented in this report are preliminary and upon him coder review may be revised to meet current compliance requirements. Trevon Webber DO 01/13/2025 5:39:20 PM This report has been signed electronically. Number of Addenda: 0 Note Initiated On: 01/13/2025 1:01 PM 01/13/25 1739 Date _ Trevon Webber DO Cosigner Signature: Date (if indicated) CC: Dr. Belle Monk MD; Trevon Webber DO ~ Date Dictated: 01/13/25 1301 Date Transcribed: Avaya Engineer: MENG Signed [place] [address]-26-2025 Progress note [facility] Medical Records Department [address] [place] [address] Progress Note - Hospitalist 01/13/25 1650 MR#: [id number] Acct: [id number] Name: ERICK GAUTAM Rep #:[id number] : 1955 69 From: Elin Benites DO PCP: Dr. Belle Monk MD Status:ADM IN [facility] Reason for Visit Reason for Visit: Diagnoses Type 2 diabetes mellitus without complications (01/12/25) Other specified diseases of biliary tract (01/12/25) Other specified diseases of pancreas (01/12/25) Right upper quadrant pain (01/12/25) Unspecified jaundice (01/12/25) Subjective Subjective Patient was seen and examined today, he underwent an ERCP today, I talked directly with the equipment worker who stated there was a neoplasm in the common bile duct, a stent was placed. Discussionswere carried out with the family and the patient as to where he would want to be referred to, gastro enterology stated that he would recommend either the [facility] or [facility]. At this time, patient's would prefer the [facility] but the patient stated that he [...] %(Auto) 70.7 H, Lymph % (Auto) 16.9 L,Gillespie % (Auto) 9.9, Eos % (Auto) 1.8, [...] ASYA-1 Antibody TNP, Sm (Krishna) Antibody TNP, COTTON FARMER Antibody TNP, Scl-70Scleroderma Ab TNP, Antichromatin Antibodies [...] pancreatic duct. Left renal cyst. Reading Location: [place] [address] Physical Exam Const alert, oriented x3 and [...] team: 35-minute Charges/Coding Visit Charges Inpatient E&M: 37985 Subs Hosp L2 01/13/25 1659 Cosigner Signature (if applicable): CC: ~ Signed [facility]06-26-2025 Consult note Author Brian Vazquez [facility] Note Date/Time January 13, 2025 2:39 pm [facility] Medical Records Department [address] [place] [address] Anesthesia Postop Eval I 01/13/25 1438 MR#: [id number] Acct: [id number] Name: ERICK GAUTAM Rep #:[id number] 1 : 1955 69 From: Brian OSBORN PCP: Dr. Belle Monk MD Status:ADM IN Y Race: C Location: [place] [address] Anesthesia: Postop Eval I Current Vital Signs [...] CRNA Cosigner Signature: Date CC: ~ Signed [facility] Work Phone: 1(275) 239-403206-26-2025 Consult note Author Claus [facility] Note Date/Time January 13, 2025 1:18 pm [facility] Medical Records Department [address] [place] [address] Pre-Anesthesia Evaluation 01/13/25 1315 MR#: [id number] Acct: [id number] Name: ERICK GAUTAM Rep #:[id number] : 1955 69 From: Claus Suggs MD PCP: Dr. Belle Monk MD Status:ADM IN Y Race: C Location: [place] [address] ASA Classification* ASA Classification ASA Classification: 2 [...] assessments. Anesthesia Type Anesthesia Type: General (Consider Ashburn scope intubation.) History Source History Obtained from:: [...] retrograde cholangiopancreatography Anesthesia History Anesthesia History - abrasive water jet cutter operator: Anesthesia History - abrasive water jet cutter operator Hx Hospitalization Any Problems With Anesthesia Yes: [...] take am of surgery PONV PONV - abrasive water jet cutter operator: PONV - abrasive water jet cutter operator Female HX of Motion Sickness HX of N/V After Surgery Non-Smoker Duration of Surgery greater than 60 minutes Number of Risk Factors PONV Score Height & Weight Height & Weight: Anesthesia: Height & Weight Height 5 ft 11 in 01/13/25 12:57 Weight: 83.461 kg 01/13/25 12:57 Body Mass Index (BMI) 25.7 01/13/25 12:57 Respiratory Assessment Respiratory Assessment - abrasive water jet cutter operator: Respiratory Tract Infection Hx - abrasive water jet cutter operator Hx Respiratory Tract Infection No 01/13/25 00:08 STOP Sleep Apnea STOP Sleep Apnea - abrasive water jet cutter operator: STOP Sleep Apnea - abrasive water jet cutter operator Hx Hypertension No 01/12/25 15:00 Hx Sleep [...] 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: Tobacco Use History - abrasive water jet cutter operator Tobacco Use Smoking Status Never smoker 01/12/25 15:00 Hx Tobacco Use No 01/12/25 15:00 Years Smoking Packs Smoked per Day Smoking Cessation Date was within the last 15 years Hx Smoking Cessation Date Hx Smoking Cessation Counseling Hematologic Medial History Hematologic Hx - abrasive water jet cutter operator: Hematologic Medical Hx - cco & president Hx of Blood Transfusion No 01/12/25 15:00 [...] confused, unrespo /Reproduction History /Reproductive History - abrasive water jet cutter operator: /Reproductive Hx- abrasive water jet cutter operator Hx Now Gestational Age (in weeks): EDC: [...] mls @ 15 mls/hr 01/12/25 15:53 IV .[id number] PRN Saline Flush Sodium Chloride 250 mls @ 15 mls/hr 01/12/25 15:53 IV .[id number] PRN Additional IVPB Infusion Lactated Ringer's 1,000 [...] MD Cosigner Signature: Date CC: ~ Signed [facility] Work Phone: 1(406) 874-673706-26-2025 Progress note Author Trevon Webber [facility] Note Date/Time January 13, 2025 1:06 pm [facility] Medical Records Department [address] [place] [address] Progress Note 01/13/25 1305 MR#: [id number] Acct: [id number] Name: ERICK GAUTAM Rep #:[id number] : 1955 69 From: Trevon Webber DO PCP: Dr. Belle Monk MD Status:ADM IN Location: [place] [id number] Progress Note MRI/MRCP Abdomen without Contrast IMPRESSION: [...] electrophoresis, THANH comprehensive. Visit Charges Inpatient E&M: 87819 Subs Hosp L2 01/13/25 1306 <Electronically signed by Trevon Webber DO> Trevon Webber DO Cosigner Signature (if applicable): CC: ~ Signed [facility] Work Phone: 1(570) 114-138006-26-2025 Consult note [facility] Medical Records Department [address] [place] [address] Anesthesia Postop Eval I 01/13/25 1438 MR#: [id number] Acct: [id number] Name: ERICK GAUTAM Rep #:[id number] 1 : 1955 69 From: Brian OSBORN PCP: Dr. Belle Monk MD Status:ADM IN Y Race: C Location: [place] [address] Anesthesia: Postop Eval I Current Vital Signs Temperature: 97.5 F Pulse Rate: 85 Blood Pressure: 135/91 Respiratory Rate: 16 Pulse Ox: 97 Assessment Airway patent: Yes Spontaneous unlabored respirations: Yes nausea: No Vomiting: No Anesthesia Complication: No Fluid Hydration Crystalloid volume administer (ml): 800 Total IV fluid infused: 800 Progress Note Anesthesia document: Postop Eval 1 completed: Yes 01/13/25 1439 ARRANGER ASSEMBLER> Date _ Brian Vazquez ARRANGER ASSEMBLER Cosigner Signature: Date CC: ~ Signed [facility]06-26-2025 Consult note [facility] Medical Records Department [address] [place] [address] Pre-Anesthesia Evaluation 01/13/25 1315 MR#: [id number] Acct: [id number] Name: ERICK GAUTAM Rep #:[id number] : 1955 69 From: Claus Suggs MD PCP: Dr. Belle Monk MD Status:ADM IN Y Race: C Location: [place] [address] ASA Classification* ASA Classification ASA Classification: 2 [...] assessments. Anesthesia Type Anesthesia Type: General (Consider Ashburn scope intubation.) History Source History Obtained from:: [...] retrograde cholangiopancreatography Anesthesia History Anesthesia History - abrasive water jet cutter operator: Anesthesia History - abrasive water jet cutter operator Hx Hospitalization Any Problems With Anesthesia Yes: [...] take am of surgery PONV PONV - abrasive water jet cutter operator: PONV - abrasive water jet cutter operator Female HX of Motion Sickness HX of N/V After Surgery Non-Smoker Duration of Surgery greater than 60 minutes Number of Risk Factors PONV Score Height & Weight Height & Weight: Anesthesia: Height & Weight Height 5 ft 11 in 01/13/25 12:57 Weight: 83.461 kg 01/13/25 12:57 Body Mass Index (BMI) 25.7 01/13/25 12:57 Respiratory Assessment Respiratory Assessment - abrasive water jet cutter operator: Respiratory Tract Infection Hx - abrasive water jet cutter operator Hx Respiratory Tract Infection No 01/13/25 00:08 STOP Sleep Apnea STOP Sleep Apnea - abrasive water jet cutter operator: STOP Sleep Apnea - abrasive water jet cutter operator Hx Hypertension No 01/12/25 15:00 Hx Sleep [...] 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: Tobacco Use History - abrasive water jet cutter operator Tobacco Use Smoking Status Never smoker 01/12/25 15:00 Hx Tobacco Use No 01/12/25 15:00 Years Smoking Packs Smoked per Day Smoking Cessation Date was within the last 15 years Hx Smoking Cessation Date Hx Smoking Cessation Counseling Hematologic Medial History Hematologic Hx - abrasive water jet cutter operator: Hematologic Medical Hx - cco & president Hx of Blood Transfusion No 01/12/25 15:00 [...] confused, unrespo /Reproduction History /Reproductive History - abrasive water jet cutter operator: /Reproductive Hx- abrasive water jet cutter operator Hx Now Gestational Age (in weeks): EDC: [...] mls @ 15 mls/hr 01/12/25 15:53 IV .[id number] PRN Saline Flush Sodium Chloride 250 mls @ 15 mls/hr 01/12/25 15:53 IV .[id number] PRN Additional IVPB Infusion Lactated Ringer's 1,000 [...] MD Cosigner Signature: Date CC: ~ Signed [facility]06-26-2025 Progress note [facility] Medical Records Department [address] [place] [address] Progress Note 01/13/25 1305 MR#: [id number] Acct: [id number] Name: ERICK GAUTAM Rep #:[id number] 5 : 1955 69 From: Trevon Webber DO PCP: Dr. Belle Monk MD Status:ADM IN [facility] Note MRI/MRCP Abdomen without Contrast IMPRESSION: [...] electrophoresis, THANH comprehensive. Visit Charges Inpatient E&M: 01079 Subs Hosp L2 01/13/25 1306 Trevon Kinsey Signature (if applicable): CC: ~ Signed [facility]06-25-2025 Consult note Author Trevon Webber [facility] Note Date/Time January 12, 2025 6:29 pm [facility] Medical Records Department [address] [place] [address] Consultation - GI 01/12/25 1821 MR#: [id number] Acct: [id number] Name: ERICK GAUTAM Rep #:[id number] : 1955 69 From: Trevon Friend DO PCP: Dr. Belle Monk MD Status:ADM IN Location: [place] [id number] HPI Consult Data Date of Consult: 01/12/25 [...] (Auto) 72.7 H, Lymph % (Auto) 15.7 L,Gillespie % (Auto) 9.7, Eos % (Auto) 1.2, [...] Total Bilirubin 12.50 H, AST 51 H, WGA310 H, Alkaline Phosphatase 292 H, Total Protein 6.8, Albumin 3.9, Globulin 2.9,Albumin/Globulin Ratio 1.3, Lipase 28 01/12/25 10:10: Urine Color Berna, Urine Clarity Clear, Urine pH 6.0, Ur Specific Newcomb 1.015, Urine Protein 30 H, Urine Glucose [...] uncomplicated fat containing umbilical hernia. Reading Location: [facility] Assessment & Plan Assessment/Plan (1) Jaundice: (2) [...] THANH comprehensive. Charges/Coding Visit Charges Inpatient E&M: 20965 Init Hosp L3 01/12/251828 <Electronically signed by Trevon Webber DO> Cosigner Signature (if applicable): CC: Dr. Belle Monk MD~ Signed [facility] Work Phone: 1(306) 736-659006-25-2025 Consult note [facility] Medical Records Department [address] [place] [address] Consultation - GI 01/12/25 1821 MR#: [id number] Acct: [id number] Name: ERICK GAUTAM Rep #:[id number] 0 : 1955 69 From: Trevon Webber DO PCP: Dr. Belle Monk MD Status:ADM IN Location: [facility] HPI Consult Data Date of Consult: 01/12/25 [...] (Auto) 72.7 H, Lymph % (Auto) 15.7 L,Gillespie % (Auto) 9.7, Eos % (Auto) 1.2, Baso % (Auto) 0.2, Absolute Neuts (auto) 2.9, Absolute Lymphs (auto) 0.63 L, Nucleated RBC % 0, Sodium 133, Potassium 4.0, Chloride 97 L, Carbon Dioxide 23.0, Anion Gap 13, BUN 22 H, Creatinine 0.81, Estim Creat Clear Calc 91.67, Est GFR (MDRD) Non-Af 96, BUN/Creatinine Ratio 27.8 H, Glucose 374 H, Calcium 9.2, Total Mtogazelg28.50 H, AST 51 H, DHM753 H, Alkaline Phosphatase 292 H, Total Protein 6.8, Albumin 3.9, Globulin 2.9,Albumin/Globulin Ratio 1.3, Lipase 28 01/12/25 10:10: Urine Color Berna, Urine Clarity Clear, Urine pH 6.0, Ur Specific Newcomb 1.015, Urine Protein 30 H, Urine Glucose [...] fat containing umbilical hernia. Reading Location: [facility] Assessment & Plan Assessment/Plan (1) Jaundice: (2) [...] THANH comprehensive. Charges/Coding Visit Charges Inpatient E&M: 60213 Init Hosp L3 01/12/25 1829 Cosigner Signature (if applicable): CC: Dr. Belle Monk MD~ Signed [facility]06-25-2025 History and physical note Author Matilde Henry [facility] Note Date/Time January 12, 2025 1:38 pm [facility] Medical Records Department [address] [place] [address] H&P Exam - Hospitalist 01/12/25 1336 MR#: [id number] Acct: [id number] Name: ERICK GAUTAM Rep #:[id number] : 1955 69 From: Matilde Henry MD PCP: Dr. Belle Monk MD Status:REG ER Location: ED HPI - General General Date of Admission: 01/12/25 Date of Service: 01/12/25 Chief Complaint: RUQ pain, jaundice HPI Narrative ERICK GAUTAM, is a 69-year-old male with history of diabetes recently switched from Januvia to metformin who presented to [facility] ED 01/12/2025 with 2-1/2 weeks [...] chills, no other new or acute complaints. [facility] Medical History (Updated 01/12/25 @ 13:37 [...] (Auto) 72.7 H, Lymph % (Auto) 15.7 L,Gillespie % (Auto) 9.7, Eos % (Auto) 1.2, [...] Total Bilirubin 12.50 H, AST 51 H, DPS472 H, Alkaline Phosphatase 292 H, Total Protein 6.8, Albumin 3.9, Globulin 2.9,Albumin/Globulin Ratio 1.3, Lipase 28 01/12/25 10:10: Urine Color Berna, Urine Clarity Clear, Urine pH 6.0, Ur Specific Newcomb 1.015, Urine Protein 30 H, Urine Glucose [...] Henry MD Charges/Coding Visit Charges Inpatient E&M: 04314 Init Hosp L1 01/12/25 1335 <Electronically signed by Matilde Henry MD> Cosigner Signature (if applicable): CC: Dr. Belle Monk MD; Dr. Matilde Henry MD~ Signed [facility] Work Phone: 1(479) 719-672206-25-2025 Discharge summary Author Jeremy Lockett [facility] Note Date/Time January 12, 2025 1:20 pm [facility] Medical Records Department [address] [place] [address] Emergency Department Summary 01/12/25 MR#: [id number] Acct: [id number] Name: ERICK GAUTAM Rep #:[id number] : 1955 69 From: Jeremy Lockett [...] well as quintin colored stools and jaundice. [facility] Medical History Umbilical hernia Gallbladder problem Nausea [...] 72.7 H Lymph % (Auto) 15.7 L Gillespie % (Auto) 9.7 Eos % (Auto) 1.2 [...] Clarity Clear Urine pH 6.0 Ur Specific Newcomb 1.015 Urine Protein 30 H Urine Glucose [...] uncomplicated fat containing umbilical hernia. Reading Location: [facility] Management Discussion w/another healthcare provider: Hospitalist and Yacht Rigger Discharge Plan Dx/Rx/DC Orders Clinical Impression: Jaundice, RUQ pain, Dilated bile duct, Dilated pancreatic duct Disposition Disposition: Acute Care Hospital [facility] What to do if you have Problems For any increased pain, shortness of breath, bleeding, nausea or vomiting, chestpain, or any unexpected problems, contact your Primary Care Provider. Call [facility] ([phone]) or report to the closest Emergency Room. Call 911 if necessary. 01/12/25 1320 <Electronically signed by Jeremy Lockett MD> Cosigner Signature (if applicable): CC: Dr. Belle Monk MD ~ Signed [facility] Work Phone: 1(970) 148-170706-25-2025 Discharge summary Author Jeremy Lockett [facility] Note Date/Time January 12, 2025 1:20 pm [facility] Medical Records Department [address] [place] [address] Emergency Department Summary 01/12/25 MR#: [id number] Acct: [id number] Name: ERICK GAUTAM Rep #:[id number] : 1955 69 From: Jeremy Lockett [...] well as quintin colored stools and jaundice. [facility] Medical History Umbilical hernia Gallbladder problem Nausea [...] 72.7 H Lymph % (Auto) 15.7 L Gillespie % (Auto) 9.7 Eos % (Auto) 1.2 [...] Clarity Clear Urine pH 6.0 Ur Specific Newcomb 1.015 Urine Protein 30 H Urine Glucose [...] Management Discussion w/another healthcare provider: Hospitalist and Yacht Rigger Discharge Plan Dx/Rx/DC Orders Clinical Impression: Jaundice, RUQ pain, Dilated bile duct, Dilated pancreatic duct Disposition Disposition: Acute Care Hospital [facility] What to do if you have Problems For any increased pain, shortness of breath, bleeding, nausea or vomiting, chestpain, or any unexpected problems, contact your Primary Care Provider. Call [facility] ([phone]) or report to the closest Emergency Room. Call 911 if necessary. 01/12/25 1320 <Electronically signed by Jeremy Lockett MD> Cosigner Signature (if applicable): CC: Dr. Belle Monk MD ~ Signed [facility] Work Phone: 1(798) 165-392306-25-2025 History and physical note [facility] Medical Records Department [address] [place] [address] H&P Exam - Hospitalist 01/12/25 1336 MR#: [id number] Acct: [id number] Name: ERICK GAUTAM Rep #:[id number] : 1955 69 From: Matilde Henry MD PCP: Dr. Belle Monk MD Status:REG ER Location: ED HPI - General General Date of Admission: 01/12/25 Date of Service: 01/12/25 Chief Complaint: RUQ pain, jaundice HPI Narrative ERICK GAUTAM, is a 69-year-old male with history of diabetes recently switched from Januvia to metformin who presented to [facility] ED 01/12/2025 with 2-1/2 weeks [...] or chills,no other new or acute complaints. [facility] Medical History (Updated 01/12/25 @ 13:37 [...] (Auto) 72.7 H, Lymph % (Auto) 15.7 L,Gillespie % (Auto) 9.7, Eos % (Auto) 1.2, Baso % (Auto) 0.2, Absolute Neuts (auto) 2.9, Absolute Lymphs (auto) 0.63 L, Nucleated RBC % 0, Sodium 133, Potassium 4.0, Chloride 97 L, Carbon Dioxide 23.0, Anion Gap 13, BUN 22 H, Creatinine 0.81, Estim Creat Clear Calc 91.67, Est GFR (MDRD) Non-Af 96, BUN/Creatinine Ratio 27.8 H, Glucose 374 H, Calcium 9.2, Total Aitrztngv60.50 H, AST 51 H, IKN658 H, Alkaline Phosphatase 292 H, Total Protein 6.8, Albumin 3.9, Globulin 2.9,Albumin/Globulin Ratio 1.3, Lipase 28 01/12/25 10:10: Urine Color Berna, Urine Clarity Clear, Urine pH 6.0, Ur Specific Newcomb 1.015, Urine Protein 30 H, Urine Glucose [...] Henry MD Charges/Coding Visit Charges Inpatient E&M: 15254 Init Hosp L1 01/12/25 1338 Cosigner Signature (if applicable): CC: Dr. Belle Monk MD; Dr. Matilde Henry MD~ Signed [facility]06-25-2025 Discharge summary [facility] Medical Records Department [address] [place] [address] Emergency Department Summary 01/12/25 MR#: [id number] Acct: [id number] Name: ERICK GAUTAM Rep #:[id number] : 1955 69 From: Jeremy Lockett [...] well as quintin colored stools and jaundice. [facility] Medical History Umbilical hernia Gallbladder problem [...] 72.7 H Lymph % (Auto) 15.7 L Gillespie % (Auto) 9.7 Eos % (Auto) 1.2 [...] Clarity Clear Urine pH 6.0 Ur Specific Newcomb 1.015 Urine Protein 30 H Urine Glucose [...] Management Discussion w/another healthcare provider: Hospitalist and Yacht Rigger Discharge Plan Dx/Rx/DC Orders Clinical Impression: Jaundice, RUQ pain, Dilated bile duct, Dilated pancreatic duct Disposition Disposition: Acute Care Hospital [facility] What to do if you have Problems For any increased pain, shortness of breath, bleeding, nausea or vomiting, chestpain, or any unexpected problems, contact your Primary Care Provider. Call [facility] ([phone]) or report tothe closest Emergency Room. Call 911 if necessary. 01/12/25 1320 Cosigner Signature (if applicable): CC: Dr. Belle Monk MD ~ Signed [facility]06-25-2025 Radiology Diagnostic study note [facility] Imaging Services [address] [place] [address] Abdomen/Pelvis W IV Cont ONLY MR#: [id number] Acct: [id number] Name: ERICK GAUTAM Rep #: [id number] : 1955 M 69 From: Judah De Leon MD PCP: Dr. Belle Monk MD Status: REG ER Study:Abdomen/Pelvis W IV Cont ONLY Date of E xam: 01/12/25 Exam# [id number] Ordering Dr: Jeremy Lockett MD PROCEDURE: ABDOMEN/PELVIS [...] Lockett MD; Dr. Belle Monk MD ~ [employer] Engineer: Signed [facility]06-25-2025 Evaluation note* Diagnosis Onset Date Resolution Status Admit Date Gallbladder problem acute January 12, 2025 8:39am RUQ pain acute January 12 8:39am Diabetes mellitus, type 2 acute January 12, 2025 1:33pm Dilated bile duct acute January 122024 1:33pm Dilated pancreatic duct acute J une 2024 1:33pm Jaundice acute January 12 1:33pm RUQ pain acute January 12 1:33pm [facility] Work Phone: 1(352) 513-483806-25-2025 Evaluation note* Diagnosis Onset Date Resolution Status Admit Date Gallbladder problem acute January 12, 2025 8:39am RUQ pain inactive January 12 8:39am Diabetes mellitus, type 2 inactive January 12, 2025 1:33pm Dilated bile duct inactive January 122024 1:33pm Dilated pancreatic duct inactive J une 2024 1:33pm Jaundice inactive January 12 1:33pm RUQ pain inactive January 12 1:33pm [facility] Work Phone: 1(574) 939-462906-25-2025 Evaluation note* Diagnosis Onset Date Resolution Status [...] is present acute February 21, 2025 1:37pm [facility] Work Phone: 1(205) 955-541806-25-2025 Evaluation note* Diagnosis Onset Date Resolution Status [...] is present acute February 21, 2025 1:37pm Encounter for education acute A ugust 2024 11:57am Pancreas cancer acute February 11:57am Regional lymph node metastas is present acute February 24, 2025 11:57am [facility] Work Phone: 1(102) 934-686306-25-2025 Evaluation note* Diagnosis Onset Date Resolution Status [...] is present acute February 21, 2025 1:37pm Encounter for education acute A ugust 2024 11:57am Pancreas cancer acute February 11:57am Regional lymph node metastas is present acute February 24, 2025 11:57am Encounter for insertion of venous access port acute February 24, 1:26pm Pancreas cancer acute February 1:26pm [facility] Work Phone: 1(586) 951-144206-18-2025 Radiology Diagnostic study note [facility] Imaging Services [address] [place] [address] Abdomen Limited MR#: [id number] Acct: [id number] Name: ERICK GAUTAM Rep #: [id number] : 1955 M 69 From: Jaya Quick MD PCP: Dr. Belle Monk MD Status: REG CLI Study:Abdomen Limited Date of Exam: 12/19 03/14 Exam# [id number] Ordering Dr: Casie Monk MD PROCEDURE: ABDOMEN [...] out. Dilated common bile duct. Reading Location: [facility] CC: Dr. Belle Monk MD ~ [employer] Engineer: [facility]igned [facility] Ethan Morocho [facility] Note Date/Time March 03, 2025 1: 45pm [facility] Medical Records Department [address] [place] [address] Anesthesia Postop Eval I 03/03/25 1345 MR#: [id number] Acct: [id number] Name: ERICK GAUTAM Rep #:[id number] : 1955 69 From: Ethan OSBORN PCP: Dr. Belle Monk MD Status:REG SDC Y Race: C Location: [place] [address] Anesthesia: Postop Eval I Current Vital Signs Temperature: 98.6 F Pulse Rate: 73 Blood Pressure: 136/87 Respiratory Rate: 14 Pulse Ox: 98 Oxygen Delivery Method: Room Air Assessment Airway patent: Yes Spontaneous unlabored respirations: Yes Mental status: Awake and Calm nausea: No Vomiting: No Anesthesia Complication: No Fluid Hydration Crystalloid volume administer (ml): 500 Total IV fluid infused: 500 Progress Note Anesthesia document: Postop Eval 1 completed: Yes 03/03/25 1345 <Electronically signed by Ethan Morocho CRNA> Date _ Ethan Morocho CRNA Cosigner Signature: Date CC: ~ Signed [facility] Work Phone: Evaluation noteNo assessment information available [facility] Work Phone: Evaluation note* Diagnosis Bile duct obstruction Obstruction of bile duct Malignant neoplasm of pancreas, unspecified location of malignancy [facility] Diagnosis Bile duct obstruction- Primary Obstruction of bile duct Malignant neoplasm of pancreas, unspecified location of malignancy [facility] Bile duct obstruction- Primary Obstruction of bile duct [facility] Diagnosis Bile duct obstruction Obstruction of bile duct [facility] Diagnosis Malignant neoplasm of pancreas, unspecified location of malignancy- Primary Encounter for screening for diabetes mellitus Screening for diabetes mellitus Neoplasm of unspecified behavior of unspecified site documented [facility] this encounter [facility] Author Matilde Henry [facility] Note Date/Time January 12, 2025 1:38 pm [facility] Medical Records Department [facility] [place] [address] H&P Exam - Hospitalist 01/12/25 1336 MR#: [id number] Acct: [id number] Name: ERICK GAUTAM Rep #:[id number] : 1955 69 From: Matilde Henry MD PCP: Dr. Belle Monk MD Status:REG ER Location: ED HPI - General General Date of Admission: 01/12/25 Date of Service: 01/12/25 Chief Complaint: RUQ pain, jaundice HPI Narrative ERICK GAUTAM, is a 69-year-old male with history of diabetes recently switched from Januvia to metformin who presented to [facility] ED 01/12/2025 with 2-1/2 weeks [...] chills, no other new or acute complaints. [facility] Medical History (Updated 01/12/25 @ 13:37 [...] (Auto) 72.7 H, Lymph % (Auto) 15.7 L,Gillespie % (Auto) 9.7, Eos % (Auto) 1.2, [...] Total Bilirubin 12.50 H, AST 51 H, ODN320 H, Alkaline Phosphatase 292 H, Total Protein 6.8, Albumin 3.9, Globulin 2.9,Albumin/Globulin Ratio 1.3, Lipase 28 01/12/25 10:10: Urine Color Berna, Urine Clarity Clear, Urine pH 6.0, Ur Specific Newcomb 1.015, Urine Protein 30 H, Urine Glucose [...] uncomplicated fat containing umbilical hernia. [facility] Assessment & Plan Assessment/Plan (1) Jaundice: (2) [...] Henry MD Charges/Coding Visit Charges Inpatient E&M: 80571 Init Hosp L1 01/12/25 1338 <Electronically signed by Matilde Henry MD> Cosigner Signature (if applicable): CC: Dr. Belle Monk MD; Dr. Matilde Henry MD~ Signed [facility] Work Phone: Hospital Discharge instructionsAdditional Instructions [facility]: [facility] Reason for referral (narrative)No reason for referral information availableWDayton [facility] Work Phone: Reason for visit Narrative* Endoscopy (Emergency) - New Request Specialty Diagnoses / Procedures Referred By Cruzito caraballo Referred To Contact Diagnoses Bile duct obstruction Procedures ERCP ERCP MI ERCP BILIARY/PANC DUCT STENT EXCHANGE W/DIL&WIRE Reji Berry, DIRECTOR FRANCHISE SALES-CONTRACT NEGOTIATOR [address] [place] [address] Phone: tel: fax: Referral ID Status Reason Start Date Expiration Date V isits Requested Visits Authorized [id number] New Request 01/27/2025 02/21/2026 1 1 [facility] Chief Complaint and Reason for Visit Chief [...] node metastasis present A ugust 2024 1:37pm Chief Complaint Admit Date RUQ ABD PAIN, VOMITING January 05, 2025 9 :58am RUQ PAIN POSSIBLE GALLBLADDER January 12, 2025 8:39am RIGHT UPPER QUADRANT PAIN & JAUNDICE Celio 2024 1:33pm abd pain January 12, 2025 1:36 pm RIGHT UPPER QUADRANT PAIN & JAUNDICE Celio 2024 6:21pm AM EKG January 13, 2025 5:53 am RIGHT UPPER QUADRANT PAIN & JAUNDICE Celio e 2024 1:05pm RIGHT UPPER QUADRANT PAIN & JAUNDICE Celio e 2024 4:50pm RIGHT UPPER QUADRANT PAIN & JAUNDICE Celio e 2024 10:56am CBD Cancer / Waiting on Path January 20 9:39am F/U FROM [facility] RECORDS PRINTED February 212024 1:37pm Malignant neoplasm of pancreas, unspecif ied February 22, 2025 8:58am CHEMO ED February 24, 2025 11: 57am PORT PLACEMENT February 24, 2025 1:2 6pm Reason for Visit Admit Date Gallbladder problem [...] node metastasis present A ugust 2024 1:37pm Encounter for education February 24, 2025 11:57am Pancreas cancer February 24, 2025 11: 57am Regional lymph node metastasis present A ugust 2024 11:57am Chief Complaint Admit Date RUQ ABD PAIN, VOMITING January 05, 2025 9 :58am RUQ PAIN POSSIBLE GALLBLADDER January 12, 2025 8:39am RIGHT UPPER QUADRANT PAIN & JAUNDICE Dec 1:33pm abd pain January 12, 2025 1:36 pm RIGHT UPPER QUADRANT PAIN & JAUNDICE Celio e 5 6:21pm AM EKG January 13, 2025 5:53 am RIGHT UPPER QUADRANT PAIN & JAUNDICE Dec 1:05pm RIGHT UPPER QUADRANT PAIN & JAUNDICE Dec 4:50pm RIGHT UPPER QUADRANT PAIN & JAUNDICE Celio 2024 10:56am CBD Cancer / Waiting on Path January 20, 025 9:39am F/U FROM [facility] PRINTED February 212024 1:37pm [facility] February 21, 2025 3:1 5pm Malignant neoplasm of pancreas, unspecif ied February 22, 2025 8:58am CHEMO ED February 24, 2025 11: 57am PORT PLACEMENT February 24, 2025 1:2 6pm Reason for Visit Admit Date Gallbladder problem [...] node metastasis present A ugust 2024 1:37pm Encounter for education February 24, 2025 11:57am Pancreas cancer February 24, 2025 11: 57am Regional lymph node metastasis present A ugust 2024 11:57am Encounter for insertion of venous access port February 24, 2025 1:26pm Pancreas cancer February 24, 2025 1:2 6pm Chief Complaint Admit Date RUQ ABD PAIN, VOMITING January 05, 2025 9 :58am RUQ PAIN POSSIBLE GALLBLADDER January 12, 2025 8:39am RIGHT UPPER QUADRANT PAIN & JAUNDICE Dec 1:33pm abd pain January 12, 2025 1:36 pm RIGHT UPPER QUADRANT PAIN & JAUNDICE Dec 6:21pm AM EKG January 13, 2025 5:53 am RIGHT UPPER QUADRANT PAIN & JAUNDICE Dec 1:05pm RIGHT UPPER QUADRANT PAIN & JAUNDICE Dec 4:50pm RIGHT UPPER QUADRANT PAIN & JAUNDICE Celio e 2024 10:56am CBD Cancer / Waiting on Path January 20 025 9:39am F/U FROM [facility] PR[facility] February 212024 1:37pm [facility] February 21, 2025 3:1 5pm Malignant neoplasm of pancreas, unspecif ied February 22, 2025 8:58am CHEMO ED February 24, 2025 11: 57am PORT PLACEMENT February 24, 2025 1:2 6pm Insertion, Vascular Port right poss left March 03, 2025 11:54am Insertion, Vascular Port right poss left March 03, 2025 12:22pm Advance Directives No Advanced Directives Records Found Advance Directive Response Recorded Date/ Time Living Will No July 20 4:44pm Do you have a Healthcare Power of Employment Advisor? No July 20, 2024 4:44pm Advance Directive Response Recorded Date/ Time Do you have a Healthcare Power of Employment Advisor? No January 12, 2025 9:55am Advance Directive Response Recorded Date/ Time Do you have a Healthcare Power of Employment Advisor? Yes January 12, 2025 3:00pm Advance Directive Response Recorded Date/ Time Do you have a Healthcare Power of Employment Advisor? Yes January 12, 2025 3:00pm Do you have a Healthcare Power of Employment Advisor? Yes February 24, 2025 8:15am Name of Medical Power of Employment Advisor February 24, 2025 8:15am Family History No Family History Records Found Relationship Condition Age at Onset Recorded Date/T [...] Referring Provider Active Start: January 20, 2025 Marine Oiler Relationship Specialty Start Date End Date Belle Monk MD [address] [place] [phone] PCP - General Family Medicine 01/24/25 Petra Sawyer MB [facility] [address] [place], [place] [phone] Referring Provider Medical Oncology 01/24/25 Kathy Hickman, AKIL Registered Nurse 01/24/25 Marine Oiler Relationship Specialty Start Date End Date Belle Monk MD [address] [place] [phone] PCP - General Family Medicine 01/24/25 Petra Sawyer MB [facility] [address] [place], [place] [phone] Referring Provider Medical Oncology 01/24/25 Kathy Hickman, RN Registered Nurse 01/24/25 Marine Oiler Relationship Specialty Start Date End Date Belle Monk MD [address] [place] [phone] PCP - General Family Medicine 01/24/25 Petra Sawyer MB [facility] [address] [place], [place] [phone] Referring Provider Medical Oncology 01/24/25 Kathy Hickman, RN Registered Nurse 01/24/25 Marine Oiler Relationship Specialty Start Date End Date Belle Monk MD [address] [place] [phone] PCP - General Family Medicine 01/24/25 Petra Sawyer MB [facility] [address] [place], [place] [phone] Referring Provider Medical Oncology 01/24/25 Kathy Hickman, RN Registered Nurse 01/24/25 Marine Oiler Relationship Specialty Start Date End Date Belle Monk MD [address] [place] [phone] PCP - General Family Medicine 01/24/25 Petra Sawyer MB [facility] [address] [place], [place] [address] [phone] Referring Provider Medical Oncology 01/24/25 Kathy Hickman RN Registered Nurse 01/24/25 Marine Oiler Relationship Specialty Start Date End Date Belle Monk MD [address] [place] [phone] PCP - General Family Medicine 01/24/25 Petra Sawyer MB [facility] [address] [place], [place] [phone] Referring Provider Medical Oncology 01/24/25 Kathy Hickman RN Registered Nurse 01/24/25 Team Status: Inactive [...] Referring Provider Active Start: February 21, 2025 Team Status: Active Member Role/Relationship Status Dates Dr. Belle Monk MD Primary Care Provider Active Start: February 22, 2025 Dr. Petra Sawyer MD Attending Provider Active Start: February 22, 2025 Dr. Petra Sawyer MD Referring Provider Active Start: February 22, 2025 Team Status: Inactive Member Role/Relationship Status Dates Dr. Belle Monk MD Primary Care Provider Active Start: February 24, 2025 End: February 24, 2025 Dr. Belle Monk MD Referring Provider Active Start: February 24, 2025 End: February 24, 2025 Ludivina Manley MERCHANDISE DIRECTOR, MERCHANDISE DIRECTOR-C Attending Provider Active Start: February 24, 2025 End: February 24, 2025 Team Status: Active Member Role/Relationship Status Dates Dr. Belle Monk MD Primary Care Provider Active Start: February 24, 2025 Dr. Freeman Stauffer MD Attending Provider Active Start: February 24, 2025 Dr. Petra Sawyer MD Referring Provider Active Start: February 24, 2025 Team Status: Inactive Member Role/Relationship Status Dates Dr. Belle Monk MD Primary Care Provider Active Start: February 24, 2025 End: February 24, 2025 Dr. Freeman Stauffer MD Attending Provider Active Start: February 24, 2025 End: February 24, 2025 Dr. Petra Sawyer MD Referring Provider Active Start: February 24, 2025 End: February 24, 2025 Team Status: Inactive Member Role/Relationship Status Dates Dr. Belle Monk MD Primary Care Provider Active Start: February 22, 2025 End: February 22, 2025 Dr. Petra Sawyer MD Attending Provider Active Start: February 22, 2025 End: February 22, 2025 Dr. Petra Sawyer MD Referring Provider Active Start: February 22, 2025 End: February 22, 2025 Team Status: Inactive Member Role/Relationship Status Dates Dr. Belle Monk MD Primary Care Provider Active Start: March 03, 2025 End: March 03, 2025 Dr. Freeman Stauffer MD Attending Provider Active Start: March 03, 2025 End: March 03, 2025 Dr. Freeman Stauffer MD Referring Provider Active Start: March 03, 2025 End: March 03, 2025 Team Status: Active Member Role/Relationship Status Dates Dr. Belle Monk MD Primary Care Provider Active Start: March 03, 2025 Dr. Freeman Stauffer MD Attending Provider Active Start: March 03, 2025 Dr. Freeman Stauffer MD Referring Provider Active Start: March 03, 2025 Dr. Freeman Stauffer MD Other Provider Active Start: March 03, 2025 Goals (unrecognized section and content) Goals [...] Specialty Diagnoses / Procedures Referred By Cruzito t Referred To Contact Surgical Oncology Diagnoses Obstruction of bile duct Petra Sawyer MB [facility] [address] [place] [address] Phone: tel: fax: Baldomero Alejo MD [address] [facility] [address] [place] [address] Phone: tel: fax: Referral ID Status Reason Start Date Expiration Date Visits Requested Visits Authorized [id number] New Request Surgical Evaluation 01/24/2025 02/18/2026 1 1 Reason Comments Nutrition Consultation Specialty Diagnoses / Procedures Referred By Cruzito t Referred To Contact Nutrition and Dietetics Diagnoses Bile duct obstruction Reji Berry Eva, DIRECTOR FRANCHISE SALES-CONTRACT NEGOTIATOR [address] [facility] [address] [place] [address] Phone: tel: fax:[phone] Perry Berna [place], RD [address] [place] [address] Phone: tel: fax: Referral ID Status Reason Start Date Expiration Date V isits Requested Visits Authorized [id number] New Request 01/27/2025 02/21/2026 1 1 Reason Onset Date Comments Appointment 02/10/2025 (unrecognized sect ion and content) No Status Records FoundNo Status Records Found INFORMATION SOURCE (unrecogn ized section and content) DATE CREATED AUTHOR 02/21/2025 [facility] DATE CREATED AUTHOR AUTHOR'S MICHAEL IRBY 03/04/2025 [facility] FOR RECORDS PERTAINING TO PATIENTS WHO ARE [...] BE BASED ON THE PRIMARY CLINICAL RECORDS. [employer] provides no warranty or guarantee of the accuracy or completeness of information in this document.
== END | disposition home or self-care (01) ==
LOC: CT 06:05
PROVIDERS: PCP Family Medicine; Referring Provider Internal Medicine Hematology & Oncology; Visit Provider Internal Medicine Hematology & Oncology
DX: C25.9 Malignant neoplasm of pancreas, unspecified (principal); C77.9 Secondary and unspecified malignant neoplasm of lymph node, unspecified
CPT/HCPCS: 71260; Q9967